=== PATIENT | female | born 1960 | race Caucasian/White ===

== ENCOUNTER 2023-01-21 14:30 | Emergency (ER) | payer MEDICARE, MEDICAID, SELFPAY ==
[2023-01-21] VITALS (34 sets, daily range): BP systolic 136–178; BP diastolic 91–121; PULSE 79–119; RESP 20–36; TEMP 36.4; O2SAT 86–98; BMI 32.3
--- NOTE | 2023-01-21 14:40 | ECG_ITS ---
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
--- NOTE | 2023-01-21 14:48 | PC.NURSE ---
placed by EMS
[2023-01-21 15:02] LABS: Basophils Percent Auto 0.3 % (0.2-2.0); Eosinophils Percent Auto 0.4 % (0.9-7.0); Hematocrit 44.5 % (36.0-48.0); Hemoglobin 15.5 g/dL (12.0-16.0); Immature Granulocytes Abs Auto 0.02 10^3/uL (0.00-0.03); Immature Granulocytes Pct Auto 0.2 % (0.0-0.5); Lymphocytes Absolute Auto 1.3 10^3/uL (1.2-3.8); Lymphocytes Percent Auto 13.9 % (20.5-60.0); Mean Corpuscular HGB Conc 34.8 g/dL (29.9-35.2); Mean Corpuscular Hemoglobin 27.7 pg (26.7-34.0); Mean Corpuscular Volume 79.6 fL (81.0-99.0); Mean Platelet Volume 11.3 fL (9.5-13.5); Monocytes Absolute Auto 0.4 10^3/uL (0.3-0.8); Monocytes Percent Auto 4.8 % (1.7-12.0); Neutrophils Absolute Auto 7.2 10^3/uL (1.4-6.5); Neutrophils Percent Auto 80.4 % (43.0-75.0); Platelet Count 180 10^3/uL (150-450); Red Blood Count 5.59 10^6/uL (4.20-5.40); Red Cell Distribution Width 13.5 % (11.0-15.0)
--- NOTE | 2023-01-21 15:04 | ED_ITS ---
HPI - Nausea/Vomiting/Diarrhea General Chief complaint: Nausea/Vomiting/Diarrhea Stated complaint: nausea Time Seen by Provider: 01/21/23 14:39 Source: patient Mode of arrival: ambulance Limitations: no limitations History of Present Illness HPI Narrative: Presenting with few hours history of nausea vomiting and diarrhea the patient denies any other complaint of abdominal pain, she also denies any history of similar symptoms The patient also denies any history of exposure to anybody with similar symptoms The patient does have a history of coronary artery disease s/p CABG done in August and [facility] by Dr Rosario Related Data Home Medications Medication Instructions Recorded Confirmed aspirin 81 mg tablet,delayed 81 mg PO DAILY 01/21/23 01/21/23 release atorvastatin 40 mg tablet 40 mg PO DAILY 01/21/23 01/21/23 carvedilol 6.25 mg tablet 6.25 mg PO Q12H 01/21/23 01/21/23 citalopram 40 mg tablet 40 mg PO DAILY 01/21/23 01/21/23 furosemide 20 mg tablet 20 mg PO DAILY 01/21/23 01/21/23 hydroxychloroquine 200 mg tablet 200 mg PO BID 01/21/23 01/21/23 hydroxyzine HCl 25 mg tablet 25 mg PO Q6H PRN anxiety 01/21/23 01/21/23 metoprolol tartrate 50 mg tablet 50 mg PO BID 01/21/23 01/21/23 modafinil 200 mg tablet 200 mg PO DAILY 01/21/23 01/21/23 morphine 30 mg tablet,extended 30 mg PO Q12H 01/21/23 01/21/23 release sitagliptin phosphate 100 mg 100 mg PO DAILY 01/21/23 01/21/23 tablet (Januvia) Allergies Allergy/AdvReac Type Severity Reaction Status Date / Time levofloxacin [From Levaquin] Allergy Severe Verified 01/21/23 14:35 Review of Systems ROS Status of ROS 10 or more systems reviewed and unremarkable except as noted in history and below [facility] Medical History (Updated 01/21/23 @ 17:26 by Carolynn Lorenz MD) Surgical History (Updated 01/21/23 @ 15:02 by Ovi Cadena) Exam Narrative Exam Narrative: Nurses notes and vital signs reviewed and patient is not hypoxic. General:actively retching and dry mucus membranes Skin: Warm, dry, no pallor noted. No rash. Head: Normocephalic, atraumatic. Neck: Supple, non-tender. Eye: Pupils are equal, round and EOMI. No scleral icterus. Ears, Nose, Mouth, and Throat: TM are clear, no nasal mucosal hypertrophy. Oral mucosa is moist, no posterior oropharynx erythema, uvula is mid-line Cardiovascular: Regular Rate and Rhythm without murmur, gallop or rub. Respiratory: No accessory muscle use or respiratory distress. Lungs are clear to auscultation, no wheezing, rales or rhonchi Chest Wall: no tenderness Back: No midline thoracic or lumbar vertebral tenderness. No CVA tenderness Musculoskeletal: normal ROM, no calf or popliteal tenderness, no lower extremity edema/swelling GI: Abdomen is soft, non-distended. Normal bowel sounds. No masses appreciated. No tenderness to palpation. No rebound, guarding, or rigidity noted. Neurological: A&O x4. No cranial nerve dysfunction observed. No truncal ataxia. Moves all extremities. Sensation intact. Psychiatric: Cooperative and interactive. Normal mood and affect. Constitutional Vital Signs, click to edit/add: Last Vital Signs Temp 97.5 F L 01/21/23 14:31 Pulse 85 01/21/23 18:00 Resp 26 H 01/21/23 18:00 BP 149/91 H 01/21/23 17:43 Pulse Ox 94 L 01/21/23 18:00 O2 Del Method Nasal Cannula 01/21/23 17:44 O2 Flow Rate 3 01/21/23 17:44 Course Vital Signs Vital signs: Vital Signs Temperature 97.5 F L 01/21/23 14:31 Pulse Rate 89 01/21/23 14:31 Respiratory Rate 24 01/21/23 14:31 Blood Pressure 178/105 H 01/21/23 14:31 Pulse Oximetry 97 01/21/23 14:31 Oxygen Delivery Method Room Air 01/21/23 14:31 Temperature 97.5 F L 01/21/23 14:31 Pulse Rate 85 01/21/23 18:00 Respiratory Rate 26 H 01/21/23 18:00 Blood Pressure 149/91 H 01/21/23 17:43 Pulse Oximetry 94 L 01/21/23 18:00 Oxygen Delivery Method Nasal Cannula 01/21/23 17:44 Oxygen Delivery Flow Rate 3 01/21/23 17:44 MDM - Nausea/Vomiting/Diarrhea MDM Narrative Medical decision making narrative: EKG showing sinus rhythm with a heart rate of [address] elevation or depression The patient was actively retching upon presentation her blood pressure was elevated as well she did not take any of her medication today due to her nausea and vomiting according to the patient her symptoms were only today she also mentions having some chest pressure when she was vomiting The patient provided with 1 dose of nitroglycerin and placed on 2 L NC CBC and chemistry shows mild metabolic acidosis It was noted that the patient troponin was elevated and repeated troponin after 2 hours was doubled The patient was started on heparin drip as well as aspirin she was provided also with metoprolol 1 dose and nitroglycerin 2 doses The patient case discussed with cardio service in [facility] where pt had her CABG , pt case was accepted by Dr Coyle/Mallorie Chest x-ray shows pulmonary edema the patient also was provided with Lasix 20 mg IV once Lab Data Labs: Lab Results 01/21/23 01/21/23 01/21/23 Range/Units 14:47 14:50 16:10 WBC 9.0 (4.0-11.0) 10^3/uL RBC 5.59 H (4.20-5.40) 10^6/uL Hgb 15.5 (12.0-16.0) g/dL Hct 44.5 (36.0-48.0) % MCV 79.6 L (81.0-99.0) fL MCH 27.7 (26.7-34.0) pg MCHC 34.8 (29.9-35.2) g/dL RDW 13.5 (11.0-15.0) % Plt Count 180 (150-450) 10^3/uL MPV 11.3 (9.5-13.5) fL Neut % (Auto) 80.4 H (43.0-75.0) % Lymph % (Auto) 13.9 L (20.5-60.0) % [place] % (Auto) 4.8 (1.7-12.0) % Eos % (Auto) 0.4 L (0.9-7.0) % Baso % (Auto) 0.3 (0.2-2.0) % Neut # (Auto) 7.2 H (1.4-6.5) 10^3/uL Lymph # (Auto) 1.3 (1.2-3.8) 10^3/uL [place] # (Auto) 0.4 (0.3-0.8) 10^3/uL Eos # (Auto) 0.0 (0.0-0.7) 10^3/uL Baso # (Auto) 0.0 (0.0-0.1) 10^3/uL Abs Immat Gran (auto) 0.02 (0.00-0.03) 10^3/uL Imm/Tot Granulo (auto) 0.2 (0.0-0.5) % PT 11.9 H (9.0-11.6) sec INR 1.13 Sodium 138 (136-145) mmol/L Potassium 3.7 (3.5-5.1) mmol/L Chloride 101 (98-107) mmol/L Carbon Dioxide 19.6 L (21.0-32.0) mmol/L Anion Gap 21.1 BUN 20.0 H (7.0-18.0) mg/dL Creatinine 0.77 (0.55-1.02) mg/dL Est GFR ( Amer) >60 (>=60) Est GFR (Non-Af Amer) >60 (>=60) BUN/Creatinine Ratio 26.0 Glucose 260 H (74-106) mg/dL Calcium 9.1 (8.5-10.1) mg/dL Total Bilirubin 0.9 (0.2-1.0) mg/dL AST 30 (15-37) U/L ALT 23 (14-59) U/L Alkaline Phosphatase 100 (46-116) U/L Troponin I High Sens 428.9 H* 828.9 H* (4.0-51.3) pg/mL Total Protein 7.3 (6.4-8.2) g/dL Albumin 4.0 (3.4-5.0) g/dL Globulin 3.3 g/dL Albumin/Globulin Ratio 1.2 Lipase 30.0 L (73.0-393.0) U/L Discharge Plan Discharge Chief Complaint: Nausea/Vomiting/Diarrhea Clinical Impression: Gastroenteritis, Pulmonary edema cardiac cause, Acute non-ST elevation myocardial infarction (NSTEMI) Patient Disposition: [facility] Time of Disposition Decision: 17:25 Discharge Location: [facility] Condition: Fair Mode of Transportation: EMS
[2023-01-21] MEDS: 0.9 % SODIUM CHLORIDE 1,000 ML 1000 ML IV (15:10)
[2023-01-21] MEDS: FAMOTIDINE/PF 20 MG/2 ML VIAL IV (15:11)
[2023-01-21] MEDS: PROCHLORPERAZINE 10 MG/2 ML VIAL IV (15:11)
--- NOTE | 2023-01-21 15:17 | PC.NURSE ---
no vomiting while in ER at this time.
[2023-01-21 15:19] LABS: Alanine Aminotransferase 23 U/L (14-59); Albumin Globulin Ratio 1.2; Alkaline Phosphatase 100 U/L (46-116); Anion Gap 21.1; Aspartate Amino Transferase 30 U/L (15-37); Bilirubin Total 0.9 mg/dL (0.2-1.0); Calcium 9.1 mg/dL (8.5-10.1); Carbon Dioxide 19.6 mmol/L (21.0-32.0); Chloride 101 mmol/L (98-107); Estimated GFR (African America >60 (>=60); Estimated GFR (Non-African Ame >60 (>=60); Globulin 3.3 g/dL; Glucose 260 mg/dL (74-106); Potassium 3.7 mmol/L (3.5-5.1); Sodium 138 mmol/L (136-145); Total Protein 7.3 g/dL (6.4-8.2)
[2023-01-21 15:31] LABS: Troponin I High Sensitivity 428.9 pg/mL (4.0-51.3)
--- NOTE | 2023-01-21 15:52 | NUTR.NU ---
pt reports nausea better at this time
--- NOTE | 2023-01-21 16:00 | XR_ITS ---
The [address] [address] Patient Name: ALEX ABDI MRN: [id number] date: 1960 Sex: F Assigned Patient Location: ER Current Patient Location: ED.MAIN Accession/Order Number: [id number] Exam Date: 01/21/2023 16:20 Report Date: 01/21/2023 16:56 At the request of: CHELI MATT Procedure: XR chest 1V EXAM: XR chest 1V HISTORY: sob COMPARISON: 09/28/2022 TECHNIQUE: Chest X-ray AP, 1 view FINDINGS: Support devices: Median sternotomy wires are in place. Lungs/pleura: No pneumothorax. Increased bilateral interstitial marking, may represent pulmonary edema. No definite consolidation. Heart and mediastinum: Normal contours. Bones: No acute abnormality identified. XR/XR chest 1V Impression: Increased bilateral interstitial marking, may represent pulmonary edema. No definite consolidation. Electronically authenticated by: ARIN LEDEZMA Date: 01/21/2023 16:56
[2023-01-21] MEDS: NITROGLYCERIN 0.4 MG TAB.SUBL PO (16:26)
[2023-01-21 16:27] LABS: INR 1.13; Prothrombin Time 11.9 sec (9.0-11.6)
--- NOTE | 2023-01-21 16:38 | ECG_ITS ---
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
[2023-01-21 16:40] LABS: Troponin I High Sensitivity 828.9 pg/mL (4.0-51.3)
[2023-01-21] MEDS: ASPIRIN 325 MG TABLET PO (17:12)
[2023-01-21] MEDS: METOPROLOL TARTRATE 5 MG/5 ML VIAL IVP (17:12)
[2023-01-21] MEDS: FUROSEMIDE 20 MG/2 ML VIAL IVP (17:12)
[2023-01-21] MEDS: HEPARIN SODIUM (PORCINE) 5,000 UNIT/ML VIAL 4000 UNIT IV (17:13)
[2023-01-21] MEDS: HEPARIN SODIUM,PORCINE/D5W 25,000 UNIT/500 ML IV.SOLN 17.256 UNIT IV (17:29)
== END 2023-01-21 19:53 | disposition short-term general hospital (02) ==
PROVIDERS: Emergency Provider Emergency Medicine; PCP Internal Medicine
DX: I21.4 Non-ST elevation (NSTEMI) myocardial infarction (principal); K52.9 Noninfective gastroenteritis and colitis, unspecified; J81.1 Chronic pulmonary edema; E87.20 Acidosis, unspecified; Z95.1 Presence of aortocoronary bypass graft; Z79.82 Long term (current) use of aspirin; Z79.899 Other long term (current) drug therapy
CPT/HCPCS: 36415; 71045; 80053; 83690; 84484; 85025; 85610; 93005; 96361; 96374; 96375; 99285

== ENCOUNTER 2023-02-05 17:08 | Outpatient (OUT) | payer MEDICARE, MEDICAID, SELFPAY ==
[2023-02-05 17:34] LABS: Anion Gap 9.6; BUN Creatinine Ratio 37.7; Calcium 8.7 mg/dL (8.5-10.1); Carbon Dioxide 30.6 mmol/L (21.0-32.0); Chloride 105 mmol/L (98-107); Estimated GFR (African America >60 (>=60); Estimated GFR (Non-African Ame >60 (>=60); Glucose 110 mg/dL (74-106); Potassium 4.2 mmol/L (3.5-5.1); Sodium 141 mmol/L (136-145)
== END 2023-02-05 17:09 | disposition home or self-care (01) ==
PROVIDERS: PCP Internal Medicine
DX: I21.4 Non-ST elevation (NSTEMI) myocardial infarction (principal)
CPT/HCPCS: 36415; 80048

== ENCOUNTER 2023-02-20 08:11 | Outpatient (OUT) | payer MEDICARE, MEDICAID, SELFPAY ==
[2023-02-20 08:46] LABS: Basophils Percent Auto 0.4 % (0.2-2.0); Eosinophils Absolute Auto 0.2 10^3/uL (0.0-0.7); Eosinophils Percent Auto 3.9 % (0.9-7.0); Hematocrit 36.6 % (36.0-48.0); Hemoglobin 12.4 g/dL (12.0-16.0); Immature Granulocytes Abs Auto 0.01 10^3/uL (0.00-0.03); Immature Granulocytes Pct Auto 0.2 % (0.0-0.5); Lymphocytes Absolute Auto 0.8 10^3/uL (1.2-3.8); Lymphocytes Percent Auto 17.1 % (20.5-60.0); Mean Corpuscular HGB Conc 33.9 g/dL (29.9-35.2); Mean Corpuscular Hemoglobin 28.2 pg (26.7-34.0); Mean Corpuscular Volume 83.4 fL (81.0-99.0); Monocytes Absolute Auto 0.5 10^3/uL (0.3-0.8); Monocytes Percent Auto 10.7 % (1.7-12.0); Neutrophils Absolute Auto 3.1 10^3/uL (1.4-6.5); Neutrophils Percent Auto 67.7 % (43.0-75.0); Red Blood Count 4.39 10^6/uL (4.20-5.40); Red Cell Distribution Width 14.2 % (11.0-15.0); White Blood Count 4.6 10^3/uL (4.0-11.0)
[2023-02-20 08:59] LABS: Platelet Count 122 10^3/uL (150-450)
[2023-02-20 09:00] LABS: Erythrocyte Sedimentation Rate 11 mm/hr (<=30)
[2023-02-20 09:35] LABS: Alanine Aminotransferase 24 U/L (14-59); Albumin Globulin Ratio 1.2; Albumin Level 3.5 g/dL (3.4-5.0); Alkaline Phosphatase 80 U/L (46-116); Aspartate Amino Transferase 20 U/L (15-37); Bilirubin Direct 0.1 mg/dL (0.0-0.2); Bilirubin Total 0.4 mg/dL (0.2-1.0); Estimated GFR (African America >60 (>=60); Estimated GFR (Non-African Ame >60 (>=60); Globulin 2.9 g/dL; Total Protein 6.4 g/dL (6.4-8.2)
== END 2023-02-20 08:12 | disposition home or self-care (01) ==
LOC: LAB 08:12
PROVIDERS: PCP Internal Medicine; Visit Provider Internal Medicine Rheumatology
DX: M05.79 Rheumatoid arthritis with rheumatoid factor of multiple sites without organ or systems involvement (principal); Z79.899 Other long term (current) drug therapy
CPT/HCPCS: 36415; 80076; 82565; 85025; 85652

== ENCOUNTER 2023-03-30 10:58 | Outpatient (OUT) | payer MEDICARE, SELFPAY ==
--- NOTE | 2023-03-30 11:06 | MM_ITS ---
Patient: ALEX ABDI Exam Date: 03/30/2023 : 1960 Gender:F Ordering : DR CARYL MAK M.D. Admission #: [id number] Family : Order #: [id number] CLICK HERE TO VIEW EXAM RADIOLOGY REPORT PROCEDURE: MM TOMOSYNTHESIS SCREENING BI COMPARISON: MG MAMM SCREEN 3D DONN CAD, 10/18/2021. MG MAMM SCREEN 3D DONN CAD, 09/30/2020. MG MAMM SCREEN DONN W CAD, 05/06/2019. MG MAMM DONN SCRN W CAD DIG, 04/16/2013. INDICATIONS: Screening Calculator Name NCI Breast Cancer Risk Assessment Tool 5 Year Breast Cancer Risk 1.90% Lifetime Breast Cancer Risk 7.50% Personal Breast Cancer No Personal Ovarian Cancer No Treatments None Family Cancers Grandmother-maternal with liver cancer at age 48; Grandfather-maternal with leg,lung,esopagus, tongue cancer at age ~38; Grandfather-paternal with lung cancer at age ~60; Aunt-paternal with breast cancer at age 52. LOCATION: [facility] BREAST COMPOSITION: Scattered areas fibroglandular density. FINDINGS: DIAGNOSTIC CATEGORY 2--BENIGN FINDING: RIGHT BREAST: No significant suspicious finding. Scattered benign-appearing calcifications are present. No significant change has occurred. LEFT BREAST: No significant suspicious finding. Scattered benign-appearing calcifications are present. No significant change has occurred. RECOMMENDATIONS: ROUTINE MAMMOGRAM AND CLINICAL EVALUATION IN 12 MONTHS. PLEASE NOTE: A NORMAL MAMMOGRAM DOES NOT EXCLUDE THE POSSIBILITY OF BREAST CANCER. A CLINICALLY SUSPICIOUS PALPABLE LUMP SHOULD BE BIOPSIED. Dictated by: Jamaal Deshpande M.D. on 03/30/2023 at 13:10 Approved by: Jamaal Deshpande M.D. on 03/30/2023 at 13:14
== END 2023-03-30 10:59 | disposition home or self-care (01) ==
LOC: MAMMO 11:00
PROVIDERS: PCP Internal Medicine; Visit Provider Internal Medicine
DX: Z12.31 Encounter for screening mammogram for malignant neoplasm of breast (principal); Z80.3 Family history of malignant neoplasm of breast; Z80.1 Family history of malignant neoplasm of trachea, bronchus and lung; Z80.0 Family history of malignant neoplasm of digestive organs; Z80.8 Family history of malignant neoplasm of other organs or systems
CPT/HCPCS: 77063; 77067

== ENCOUNTER 2023-10-02 12:41 | Outpatient (OUT) | payer MEDICARE, SELFPAY ==
[2023-10-02 13:11] LABS: Basophils Percent Auto 0.3 % (0.2-2.0); Eosinophils Absolute Auto 0.2 10^3/uL (0.0-0.7); Eosinophils Percent Auto 2.5 % (0.9-7.0); Hematocrit 40.3 % (36.0-48.0); Hemoglobin 13.5 g/dL (12.0-16.0); Immature Granulocytes Abs Auto 0.03 10^3/uL (0.00-0.03); Immature Granulocytes Pct Auto 0.4 % (0.0-0.5); Lymphocytes Absolute Auto 1.5 10^3/uL (1.2-3.8); Lymphocytes Percent Auto 21.3 % (20.5-60.0); Mean Corpuscular HGB Conc 33.5 g/dL (29.9-35.2); Mean Corpuscular Hemoglobin 29.5 pg (26.7-34.0); Mean Corpuscular Volume 88.2 fL (81.0-99.0); Mean Platelet Volume 11.1 fL (9.5-13.5); Monocytes Absolute Auto 0.4 10^3/uL (0.3-0.8); Monocytes Percent Auto 5.1 % (1.7-12.0); Neutrophils Absolute Auto 4.8 10^3/uL (1.4-6.5); Neutrophils Percent Auto 70.4 % (43.0-75.0); Platelet Count 206 10^3/uL (150-450); Red Blood Count 4.57 10^6/uL (4.20-5.40); Red Cell Distribution Width 12.6 % (11.0-15.0); White Blood Count 6.9 10^3/uL (4.0-11.0)
[2023-10-02 13:24] LABS: Erythrocyte Sedimentation Rate 23 mm/hr (<=30)
[2023-10-02 13:44] LABS: Alanine Aminotransferase 25 U/L (14-59); Albumin Level 3.5 g/dL (3.4-5.0); Alkaline Phosphatase 92 U/L (46-116); Aspartate Amino Transferase 13 U/L (15-37); Bilirubin Direct 0.2 mg/dL (0.0-0.2); Bilirubin Total 0.8 mg/dL (0.2-1.0); Estimated GFR (African America >60 (>=60); Estimated GFR (Non-African Ame >60 (>=60); Globulin 3.4 g/dL; Total Protein 6.9 g/dL (6.4-8.2)
== END 2023-10-02 12:42 | disposition home or self-care (01) ==
LOC: LAB 12:42
PROVIDERS: PCP Internal Medicine; Visit Provider Internal Medicine Rheumatology
DX: M05.79 Rheumatoid arthritis with rheumatoid factor of multiple sites without organ or systems involvement (principal); Z79.899 Other long term (current) drug therapy
CPT/HCPCS: 36415; 80076; 82565; 85025; 85652

== ENCOUNTER 2024-02-12 12:32 | Outpatient (OUT) | payer MEDICARE, SELFPAY ==
[2024-02-12 12:58] LABS: Erythrocyte Sedimentation Rate 37 mm/hr (<=30)
[2024-02-12 13:00] LABS: Basophils Percent Auto 0.9 % (0.2-2.0); Eosinophils Absolute Auto 0.2 10^3/uL (0.0-0.7); Eosinophils Percent Auto 3.5 % (0.9-7.0); Hematocrit 39.1 % (36.0-48.0); Hemoglobin 13.4 g/dL (12.0-16.0); Immature Granulocytes Pct Auto 2.2 % (0.0-0.5); Lymphocytes Percent Auto 22.1 % (20.5-60.0); Mean Corpuscular HGB Conc 34.3 g/dL (29.9-35.2); Mean Corpuscular Hemoglobin 29.5 pg (26.7-34.0); Mean Corpuscular Volume 86.1 fL (81.0-99.0); Mean Platelet Volume 11.2 fL (9.5-13.5); Monocytes Absolute Auto 0.5 10^3/uL (0.3-0.8); Monocytes Percent Auto 11.4 % (1.7-12.0); Neutrophils Absolute Auto 2.8 10^3/uL (1.4-6.5); Neutrophils Percent Auto 59.9 % (43.0-75.0); Platelet Count 145 10^3/uL (150-450); Red Blood Count 4.54 10^6/uL (4.20-5.40); Red Cell Distribution Width 12.6 % (11.0-15.0); White Blood Count 4.6 10^3/uL (4.0-11.0)
[2024-02-12 13:56] LABS: Alanine Aminotransferase 22 U/L (14-59); Albumin Level 3.2 g/dL (3.4-5.0); Alkaline Phosphatase 99 U/L (46-116); Aspartate Amino Transferase 15 U/L (15-37); Bilirubin Direct 0.1 mg/dL (0.0-0.2); Bilirubin Total 0.4 mg/dL (0.2-1.0); Estimated GFR (African America >60 (>=60); Estimated GFR (Non-African Ame >60 (>=60); Globulin 3.2 g/dL; Total Protein 6.4 g/dL (6.4-8.2)
== END 2024-02-12 12:33 | disposition home or self-care (01) ==
LOC: LAB 12:34
PROVIDERS: PCP Internal Medicine; Visit Provider Internal Medicine Rheumatology
DX: M05.79 Rheumatoid arthritis with rheumatoid factor of multiple sites without organ or systems involvement (principal); Z79.899 Other long term (current) drug therapy
CPT/HCPCS: 36415; 80076; 82565; 85025; 85652

== ENCOUNTER 2024-08-01 12:23 | Outpatient (OUT) | payer MEDICARE, SELFPAY ==
[2024-08-01 12:39] LABS: Basophils Percent Auto 0.7 % (0.2-2.0); Eosinophils Absolute Auto 0.2 10^3/uL (0.0-0.7); Eosinophils Percent Auto 2.4 % (0.9-7.0); Hematocrit 44.8 % (36.0-48.0); Immature Granulocytes Abs Auto 0.02 10^3/uL (0.00-0.03); Immature Granulocytes Pct Auto 0.3 % (0.0-0.5); Lymphocytes Absolute Auto 0.8 10^3/uL (1.2-3.8); Lymphocytes Percent Auto 13.7 % (20.5-60.0); Mean Corpuscular HGB Conc 33.5 g/dL (29.9-35.2); Mean Corpuscular Hemoglobin 29.1 pg (26.7-34.0); Mean Platelet Volume 10.9 fL (9.5-13.5); Monocytes Absolute Auto 0.5 10^3/uL (0.3-0.8); Monocytes Percent Auto 7.8 % (1.7-12.0); Neutrophils Absolute Auto 4.6 10^3/uL (1.4-6.5); Neutrophils Percent Auto 75.1 % (43.0-75.0); Platelet Count 148 10^3/uL (150-450); Red Blood Count 5.15 10^6/uL (4.20-5.40); Red Cell Distribution Width 13.3 % (11.0-15.0); White Blood Count 6.1 10^3/uL (4.0-11.0)
[2024-08-01 12:42] LABS: Erythrocyte Sedimentation Rate 11 mm/hr (<=30)
--- OUTSIDE RECORDS SUMMARY | 2024-08-01 12:54 | XMS_ITS | CCD ---
Author Organization [facility] Inform ion Partnership [facility] Care Team Providers Care Leaf Sorter Name Role Phone LORNA, BERI M Unavailable Unavailable LORNA, BERI M Unavailable Unavailable KELLY DAVIDSON (ELECTRONIC ORGAN TECHNICIAN) Unavailable Unavailab le LORNA, BERI M Unavailable Unavailable LORNA, BERI M Unavailable Unavailable LORNA, BERI M Unavailable Unavailable LORNA, BERI M Unavailable Unavailable LORNA, BERI M Unavailable Unavailable AUGUSTUS LOVE (ELECTRONIC ORGAN TECHNICIAN) Unavailable Unavaila ble LORNA, BERI M Unavailable Unavailable UNKNOWN, PROVIDER Attending Unavailable LUDWIN WEN Primary Care Unavailable UNKNOWN, PROVIDER Attending Unavailable LUDWIN WEN Primary Care Unavailable Unknown, Referring Provider Unavailable Unav ailable Gaetano Torres Unavailable Unavailable Juan F Savage Unavailable Unavailable Unknown, Referring Provider Unavailable Unav ailable Unavailable Unavailable MD Juan F Savage Attending Provider MIGUEL Wen Primary Care Provider Gaetano Torres Unavailable DALIA CERVANTES Admitting Unavailable DALIA CERVANTES Attending Unavailable BEHZAD, DR MASCORRO Primary Care Unavailable BEHZAD, DR MASCORRO Primary Care Unavailable LOIDA, DR TAMIKO Hill Admitting Unavailable LOIDA, DR TAMIKO Hill Consulting Unavailable LOIDA, DR TAMIKO Hill Attending Unavailable SIM, DR DIAZ Dobbins Consulting Unavailable BEHZAD, DR MASCORRO Consulting Unavailable BEHZAD, DR MASCORRO Attending Unavailable BEHZAD, DR MASCORRO Admitting Unavailable BEHZAD, DR MASCORRO Primary Care Unavailable BEHZAD, DR MASCORRO Attending Unavailable BEHZAD, DR MASCORRO Admitting Unavailable BEHZAD, DR MASCORRO Primary Care Unavailable BEHZAD, DR MASCORRO Consulting Unavailable BEHZAD, DR MASCORRO Primary Care Unavailable BRIAN, DR COLLINS Attending Unavailable BRIAN, DR COLLINS Admitting Unavailable HALADAMaia, DR COLLINS Consulting Unavailable BEHZAD, DR MASCORRO Primary Care Unavailable LOIDA, DR TAMIKO Hill Attending Unavailable WEST, DR TAMIKO Hill Admitting Unavailable WEST, DR TAMIKO Hill Consulting Unavailable HIGHLANDER, DALIA Rachel Admitting Unavailable HIGHLANDER, DALIA Rachel Attending Unavailable WEN, DR MASCORRO Primary Care Unavailable HIGHLANDER, DALIA Rachel Admitting Unavailable HIGHLANDER, DALIA Rachel Attending Unavailable WEN, DR MASCORRO Primary Care Unavailable HIGHLANDER, DALIA Rachel Admitting Unavailable HIGHLANDER, DALIA Rachel Attending Unavailable WEN, DR MASCORRO Primary Care Unavailable HIGHLANDER, DALIA Rachel Admitting Unavailable HIGHLANDER, DALIA Rachel Attending Unavailable WEN, DR MASCORRO Primary Care Unavailable HIGHLANDER, DALIA Rachel Attending Unavailable HIGHLANDER, DALIA Rachel Admitting Unavailable WEN, DR MASCORRO Primary Care Unavailable HIGHLANDER, DALIA Rachel Attending Unavailable HIGHLANDER, DALIA D Admitting Unavailable WEN, DR MASCORRO Primary Care Unavailable WEN, DR MASCORRO Primary Care Unavailable MARKER ., DR LEIGH Attending Unavailable MARKER ., DR LEIGH Admitting Unavailable MARKER ., DR LEIGH Consulting Unavailable PRITESH, CHEVY Consulting Unavailable BROWN, TAMIKO Consulting Unavailable HIGHLANDER, PETER D Procedure Practitioner Unava ilable DINESH, DR SAM Carlos Attending Unavailable NADEREMu, DR SAM Carlos Admitting Unavailable WEN, DR MASCORRO Primary Care Unavailable REINECK, DR FISH Naqvi Consulting Unavailabl e WEST, DR TAMIKO Hill Consulting Unavailable NADERER, DR SAM Carlos Consulting Unavailable HIGHLANDER, DALIA Rachel Consulting Unavailable AGUBOSIM, LIN Consulting Unavailable DORKOSKIEERIN Consulting Unavailable CITLALLI, RENATO Consulting Unavailable WEN, DR MASCORRO Referring Unavailable WEN, DR MASCORRO Primary Care Unavailable HALADAY, DR COLLINS Attending Unavailable HALADAY, DR COLLINS Consulting Unavailable HALADAY, DR COLLINS Admitting Unavailable HIGHLANDER, DALIA Rachel Admitting Unavailable HIGHLANDER, DALIA Rachel Attending Unavailable EWN, DR MASCORRO Primary Care Unavailable RITESH MORENO Attending Unavailable JOSH, RITESH Admitting Unavailable WEN, DR MASCORRO Primary Care Unavailable SIM, DR DIAZ Dobbins Consulting Unavailable DAVID ., RIZWANA OJEDA Consulting Unavailsusana e RITESH MORENO Consulting Unavailable JUANA ROGERS Attending Unavailable MORGAN ., JUANA MEIER Admitting Unavailable WEN, DR MASCORRO Primary Care Unavailable WEST, DR TAMIKO Hill Consulting Unavailable JUANA ROGERS Consulting Unavailable Behzad, MIGUEL Mascorro Primary Care Provider MD Gaetano Torres Attending Provider Behzad, MIGUEL Mascorro Primary Care Provider MD Gaetano Torres Attending Provider [phone] Brian, Dr. Gaetano Peres Primary Care Unava ilable Juan F Savage Referring Unavailable Juan F Savage Attending Unavailable UNKNOWN, PCP Primary Care Unavailable Juan F Savage Attending Unavailable JUAN F SAVAGE Attending Unavailable UNKNOWN, PCP Primary Care Unavailable Brian, Dr. Gaetano Peres Referring Unava ilable Brian, Dr. Gaetano Peres Primary Care Unava ilable JUAN F SAVAGE Attending Unavailable Brian, Dr. Gaetano Peres Referring Unava ilable Ludwin Wen MD Primary Care Provider [phone] Ludwin Wen MD Unavailable [phone] Scotty Huggins Attending Unavailable LUDWIN WEN Primary Care Physician LUDWIN WEN Referring Unavailable LUDWIN WEN B Primary Care Unavailable BEHZAD LUDWIN B Referring Unavailable BEHZAD LUDWIN B Primary Care Unavailable BEHZAD LUDWIN B Referring Unavailable BEHZAD LUDWIN B Primary Care Unavailable LUDWIN WEN B Referring Unavailable BEHZAD LUDWIN B Primary Care Unavailable Ludwin Wen MD Primary Care Provider BENNIE MERRITT Admitting Unavailable BENNIE MERRITT Attending Unavailable JORDY CLEMENTE Referring Unavailable BEHZAD LUDWIN B Primary Care Unavailable [facility] ONLY, [facility] Consulting Unavailable ([facility] ONLY), NEURO-CONSULTING Consulting [place] vailable CARDIOLOGY, [facility] Consulting Unavailable MICHAEL CALDWELL Consulting Unavailable FISH CORTES Consulting Unavailable BASHAR, MASHARIB Referring Unavailable BEHZAD LUDWIN B Primary Care Unavailable FUAD TIPTON Attending Unavailable BEHZAD LUDWIN B Primary Care Unavailable ALASTAL, YASEEN S Attending Unavailable ALASTAL, YASEEN S Referring Unavailable BEHZAD, LUDWIN B Primary Care Unavailable ALASTAL, YASEEN S Attending Unavailable ALASTAL, YASEEN S Referring Unavailable BEHZAD, LUDWIN B Primary Care Unavailable SELENE SHORT Referring Unavai lable BEHZAD, LUDWIN B Primary Care Unavailable SELENE SHORT Referring Unavai lable BEHZAD, LUDWIN B Primary Care Unavailable LUIGI SAHU Referring Unavailable BEHZAD, LUDWIN B Primary Care Unavailable MELI ROMO Attending Unavailable LUIGI SAHU Referring Unavailable LUDWIN WEN B Primary Care Unavailable AHJENNY BAHENAB Referring Unavailable BEHZAD LUDWIN B Primary Care Unavailable CHANA, BASEL Attending Unavailable BEHZAD LUDWIN B Referring Unavailable WEN, LUDWIN B Primary Care Unavailable MIGUEL Wen Ludwin Primary Care Provider MD Howard Kolb Attending Provider Ludwin Wen Primary Care Unavailable Howard Kolb Admitting Unavailable Howard Kolb Attending Unavailable Behzad Ludwin Primary Care Unavailable HaladayGaetano Admitting Unavailable Haladay, Gaetano Attending Unavailable Ludwin Wen Primary Care Unavailable HaladaGaetano urbina Admitting Unavailable Haladay, Gaetano Attending Unavailable RAMONA ROLDAN Attending Unavailable BEHZAD LUDWIN B Referring Unavailable WEN, LUDWIN B Primary Care Unavailable DANNIE SANFORD Attending Unavailable TIMMY BANDA Referring Unavailable BEHZAD LUDWIN B Primary Care Unavailable DANNIE SANFORD Attending Unavailable BEHZAD LUDWIN B Referring Unavailable BEHZAD LUDWIN B Primary Care Unavailable Ludwin Wen MD Unavailable HOWARD KOLB Attending Unavailable HOWARD KOLB Attending Unavailable LUDWIN WEN B Attending Unavailable LUDWIN WEN B Attending Unavailable MARIA METCALF Attending Unavailable LUDWIN WEN Attending Unavailable ISA DA SILVA Attending Unavailable MARIA METCALF Attending Unavailable Allergies Allergy Classification Reported Allergen(s) Allergy Type Date of Onset Reaction(s) Facility (20 sources) levoFLOXacin; Translations: [LEVOFLOXACIN] Drug Allergy 4 Unknown, Rash, Urticaria (disorder) [facility] Repository (9 sources) levoFLOXacin; Translations: [Levaquin] Drug Allergy [address] [facility] Repository (2 sources) Etanercept; Translations: [Enbrel] Drug Allergy [facility] Repository (19 sources) adalimumab; Translations: [ADALIMUMAB] Drug Allergy 3 [facility] [employer] Standards Work Phone: (20 sources) buPROPion; Translations: [BUPROPION] Drug Allergy 1 [facility] (19 sources) Etanercept; Translations: [ETANERCEPT] Drug Allergy 3 [facility] (3 sources) Etanercept; Translations: [etanercept] Drug Allergy 3 Cerebrovascular accident (disorder) [facility] (5 sources) buPROPion; Translations: [BUPROPION HCL] Drug Allergy 1 [facility] Repository (2 sources) adalimumab Drug Allergy 3 [facility] [employer] [facility] (14 sources) Citalopram; Translations: [CITALOPRAM] Drug Allergy 4 Other [facility] Repository (13 sources) Hydroxychloroqu ine; Translations: [HYDROXYCHLOROQ UINE] Drug Allergy 4 Other [facility] Repository (14 sources) Meclizine; Translations: [MECLIZINE] Drug Allergy 4 Other [facility] Repository (2 sources) Metoprolol; Translations: [METOPROLOL TARTRATE] Drug Allergy 4 [facility] Repository (2 sources) Ondansetron; Translations: [ONDANSETRON HCL] Drug Allergy 4 [facility] Repository (12 sources) Metoprolol Drug Allergy 4 Other [facility] (12 sources) Ondansetron Drug Allergy 4 Other [facility] Medications Current Medications Medication Drug Class(es) Dates Sig (Normalized) Sig (Original) aspirin 81 mg delayed release oral tablet (17 sources) Platelet Aggregation Inhibitor, Nonsteroidal Anti-inflammatory Drug Start: 10-09-2022 take 1 tablet by mouth in the morning aspirin 81 MG EC tablet Take 81 mg by mouth in the morning. 10/09/2022 Active atorvastatin 40 mg oral tablet (17 sources) HMG-CoA Reductase Inhibitor Start: 10-09-2022 take 1 tablet by mouth at bedtime atorvastatin (Lipitor) 40 MG tablet Take 40 mg by mouth at bedtime. 10/09/2022 Active brexpiprazole 2 mg oral tablet (3 sources) Atypical Antipsychotic Start: 05-21-2023 take 1 tablet by mouth in the morning Brexpiprazole (Rexulti) 2 MG tablet Indications: Moderate major depression, single episode (HCC) (CMS/HCC) Take 2 mg by mouth in the morning. 30 tablet 11 05/21/2023 Active carvedilol 6.25 mg oral tablet (15 sources) alpha-Adrenergic Hudson, beta-Adrenergic Hudson Start: 11-28-2023 take 1 tablet by mouth twice daily at mealtime carvedilol (Coreg) 6.25 MG tablet Indications: Essential hypertension (CMS/HCC) TAKE 1 TABLET WITH FOOD ORALLY TWICE A DAY 100 DAYS 200 tablet 3 11/28/2023 Active take 1 tablet by mouth in the mo rning carvedilol (Coreg) 6.25 MG tablet Take 6.25 mg by mouth in the morning and 6.25 mg in the evening. Take with meals. 0 Active cefdinir 300 mg oral capsule (2 sources) Cephalosporin Antibacterial Start: 08-15-2023 End: 08-22-2023 take 1 capsule by mouth in the morning cefdinir (Omnicef) 300 MG capsule Indications: Acute non-recurrent sinusitis, unspecified location Take 1 capsule (300 mg) by mouth in the morning and 1 capsule (300 mg) before bedtime. Do all this for 7 days. 14 capsule 0 08/15/2023 08/22/2023 Active cholecalciferol 0.025 mg oral capsule (20 sources) Vitamin D Start: 01-02-2024 End: 05-13-2024 take 1 capsule by mouth once daily cholecalciferol (Vitamin D-3) 25 MCG (1000 UT) capsule Indications: Vitamin D deficiency Take 1 capsule (25 mcg) by mouth Daily 100 capsule 3 05/13/2024 Active Start: 08-27-2017 take 1 capsule by [facility] every other week D3-50 1.25 MG (25136 UT) Oral Capsule TAKE 1 CAPSULE EVERY 2 WEEKS Quantity: 6 Refills: 0 Ordered: 19-Nov-2017 DO Start : 27-Aug-2017 Active diclofenac sodium 0.01 mg/mg topical gel (2 sources) Nonsteroidal Anti-inflammatory Drug diclofenac sodium (VOLTAREN) 1 % gel Apply 4 g topically 4 (four) times a day. To affected joints 0 Active docusate sodium 100 mg oral capsule (20 sources) Start: 07-10-19 take 1 capsule by mouth in the morning [facility] Stool Softener 100 MG capsule Indications: Drug-induced constipation TAKE 1 CAPSULE (100 MG) BY MOUTH IN THE MORNING 100 capsule 3 07/10/2024 Active Start: 01-01-2024 take 1 capsule by [facility] once daily docusate sodium ([facility] Stool Softener) 100 MG capsule Indications: Drug-induced constipation Take 1 capsule (100 mg) by mouth Daily 100 capsule 3 01/01/2024 Active Start: 07-31-2023 take 1 capsule by mo uth in the morning docusate sodium ([facility] Stool Softener) 100 MG capsule Indications: Drug-induced constipation Take 1 capsule (100 mg) by mouth in the morning. 100 capsule 3 07/31/2023 Active Start: 11-13-2016 take 1 capsule by mo uth at bedtime as needed [facility] Stool Softener 100 MG Oral Capsule TAKE 1 CAPSULE BY MOUTH AT BEDTIME NEEDED Quantity: 30 Refills: 0 Ordered: 09-Nov-2017 DO Start : 13-Nov-2016 Active take 2 capsules by m outh once daily docusate sodium (COLACE) 50 mg capsule Take 2 capsules (100 mg total) by mouth once daily. 0 Active docusate sodium 50 mg / sennosides, senior care 8.6 mg oral tablet (15 sources) Start: 10-09-2022 take 8.6-50 mg by mouth twice daily as needed senna-docusate (Lidia-Colace) 8.6-50 MG tablet Take 1 tablet by mouth 2 (two) times a day as needed for constipation. 10/09/2022 Active ergocalciferol 1.25 mg oral capsule (3 sources) Provitamin D2 Compound Start: 09-11-2011 ergocalciferol (Vitamin D-2) 1.25 MG (30520 UT) capsule Take by mouth 1 (one) time per week. 0 09/11/2011 Active 72 hr fentaNYL 0.012 mg/hr transdermal system (4 sources) Opioid Agonist Start: 06-27-2024 End: 08-28-2024 fentaNYL (DURAGESIC) 12 MCG/HR Indications: Rheumatoid arthritis involving multiple sites with positive rheumatoid factor (CMS/HCC) Place 1 patch over 72 hours on the skin every 3rd (third) day 10 patch 07/29/2024 08/28/2024 Active fluconazole 100 mg oral tablet (8 sources) Azole Antifungal Start: 08-15-2023 End: 08-25-2023 take 1 tablet by mouth in the morning fluconazole (Diflucan) 100 MG tablet Indications: Tinea corporis Take 1 tablet (100 mg) by mouth in the morning for 10 days. 10 tablet 0 08/15/2023 08/25/2023 Active Start: 11-07-2017 Fluconazole 10 0 MG Oral Tablet Quantity: 10 Refills: 0 Ordered: 07-Nov-2017 DO Start : 07-Nov-2017 Active Start: 11-07-2017 Fluconazole 10 0 MG Oral Tablet Quantity: 10 Refills: 0 DO Start : 07-Nov-2017 Active FLUoxetine 40 mg oral capsule (15 sources) Serotonin Reuptake Inhibitor Start: 05-28-2023 End: 11-24-2023 take 1 capsule by mouth in the morning FLUoxetine (PROzac) 40 MG capsule Indications: Moderate major depression, single episode (HCC) (CMS/HCC) TAKE 1 CAPSULE BY MOUTH IN THE MORNING 100 capsule 3 09/27/2023 Active fluticasone propionate 0.05 mg/actuat metered dose nasal spray (17 sources) Corticosteroid take 2 spray(s) nasal route in the morning fluticasone (Flonase) 50 MCG/ACT nasal spray Administer 2 sprays into each nostril in the morning. Active take 2 spray(s) nasal route once daily fluticasone propionate (FLONASE ALLERGY RELIEF) 50 mcg/actuation nasal spray Administer 2 sprays into each nostril once daily. 0 Active furosemide 20 mg oral tablet (20 sources) Loop Diuretic Start: 04-25-2017 End: 05-13-2025 take 1 tablet by mouth once daily furosemide (Lasix) 20 MG tablet Indications: Heart failure with reduced ejection fraction (CMS/HCC) Take 1 tablet (20 mg) by mouth Daily 90 tablet 3 05/13/2024 05/13/2025 Active Start: 04-25-2017 Furosemide 20 MG Oral Tablet Quantity: 90 Refills: 0 Ordered: 11-Oct-2017 DO Start : 25-Apr-2017 Active hydrocortisone 10 mg/ml / neomycin 3.5 mg/ml / polymyxin b [id number] unt/ml otic suspension (2 sources) Aminoglycoside Antibacterial, Polymyxin-class Antibacterial, Corticosteroid Start: 08-15-2023 End: 08-25-2023 [id number] isone (Cortisporin) 3.5-15457-9 otic suspension Indications: Acute otitis media, unspecified otitis media type Administer 3-4 drops into affected ear(s) in the morning and 3-4 drops at noon and 3-4 drops in the evening and 3-4 drops before bedtime. Do all this for 10 days. 10 mL 0 08/15/2023 08/25/2023 Active lactulose 667 mg/ml oral solution (7 sources) Osmotic Laxative Start: 04-30-2024 lactulose (Chronulac) 10 GM/ 15ML solution Take 10 g by mouth in the morning and 10 g at noon and 10 g in the evening. 04/30/2024 Active leflunomide 20 mg oral tablet (17 sources) Antirheumatic Agent take 1 tablet by mouth in the morning leflunomide (Arava) 20 MG tablet Take 20 mg by mouth in the morning. Active lisinopril 20 mg oral tablet (14 sources) Angiotensin Converting Enzyme Inhibitor Start: 09-14-2023 take 1 tablet by mouth in the morning lisinopriL (PRINIVIL,ZESTRIL) 20 mg tablet Take 1 tablet (20 mg total) by mouth in the morning. 30 tablet 1 09/14/2023 Active modafinil 200 mg oral tablet (20 sources) Sympathomimetic- like Agent Start: 01-01-2024 End: 02-29-2024 take 1 tablet by mouth once daily modafinil (Provigil) 200 MG tablet Indications: Attention deficit disorder without hyperactivity TAKE 1 TABLET BY MOUTH EVERY DAY 30 tablet 02/29/2024 Active Start: 08-28-2017 take 1 tablet by isaías th in the morning modafinil (Provigil) 200 MG tablet Indications: Attention deficit disorder without hyperactivity Take 1 tablet (200 mg) by mouth in the morning. 30 tablet 3 04/30/2023 Active morphine sulfate 15 mg extended release oral tablet (20 sources) Opioid Agonist Start: 01-30-2024 End: 06-27-2024 take 1 tablet by mouth in the morning, then take 1 tablet by mouth every twelve hours at bedtime morphine CR (MS Contin) 15 MG 12 hr tablet Indications: Lumbar radiculopathy Take 1 tablet (15 mg) by mouth in the morning and 1 tablet (15 mg) before bedtime. 60 tablet 06/26/2024 06/27/2024 Discontinued (Other) Start: 08-15-2023 take 1 tablet by isaías th in the morning, then take 1 tablet by mouth every twelve hours at bedtime morphine CR (MS Contin) 15 MG 12 hr tablet Indications: Radiculopathy, unspecified spinal region Take 1 tablet (15 mg) by mouth in the morning and 1 tablet (15 mg) before bedtime. 0 08/15/2023 Active Start: 11-30-2017 End: 08-15-2023 take 1 tablet by mouth every twelve hours at bedtime morphine (MS CONTIN) 30 mg 12 hr tablet Take 1 tablet (30 mg total) by mouth in the morning and at bedtime. 0 09/15/2022 Active pantoprazole 40 mg delayed release oral tablet (14 sources) Proton Pump Inhibitor Start: 09-13-2023 take 1 tablet by mouth in the morning pantoprazole (ProtoNix) 40 MG EC tablet Take 40 mg by mouth in the morning and 40 mg in the evening. Take before meals. 09/13/2023 Active potassium chloride 10 meq extended release oral capsule (20 sources) Start: 10-30-2017 End: 09-23-2024 take 1 capsule by mouth once daily potassium chloride ER (Micro-K) 10 MEQ ER capsule Indications: Hypokalemia Take 1 capsule (10 mEq) by mouth Daily 90 capsule 3 09/24/2023 09/23/2024 Active riTUXimab (17 sources) [id number] Cytolytic Antibody Start: 11-22-2011 riTUXimab (RITUXAN IV) every 6 (six) months. WITH RHEUMATOLOGY 11/22/2011 Active Start: 11-22-2011 riTUXimab (RIT UXAN IV) every 6 (six) months. WITH RHEUMATOLOGY 0 11/22/2011 Active rituximab (RITUX AN IV) Infuse into a venous catheter every 6 (six) months. 0 Active SITagliptin 100 mg oral tablet (20 sources) Dipeptidyl Peptidase 4 Inhibitor Start: 03-08-2018 take 1 tablet by mouth in the morning JANUVIA 100 mg tablet Take 1 tablet (100 mg total) by mouth in the morning. 0 07/14/2022 Active Start: 03-08-2018 Januvia 100 MG Oral Tablet Quantity: 30 Refills: 0 Ordered: 05-Jun-2018 DO Start : 08-Mar-2018 Active sucralfate 1000 mg oral tablet (2 sources) Aluminum Complex Start: 09-13-2023 sucralfate (C ARAFATE) 1 gram tablet Take 1 tablet (1 g total) by mouth in the morning and 1 tablet (1 g total) at noon and 1 tablet (1 g total) in the evening. 30 tablet 1 09/13/2023 Active Completed/Discontinued Medications Medication Drug Class(es) Dates Sig (Normalized) Sig (Original) acetaminophen 325 mg / oxyCODONE hydrochloride 5 mg oral tablet (6 sources) Opioid Agonist Start: 11-01-2017 oxyCODONE-Acetami nophen 5-325 MG Oral Tablet Quantity: 120 Refills: 0 Ordered: 01-Nov-2017 DO Start : 01-Nov-2017 Active [id number] 200 actuat albuterol 0.09 mg/actuat metered dose inhaler (20 sources) beta2-Adrenergic Agonist Start: 01-31-2018 ProAir HFA 108 (90 Base) MCG/ACT AERS Quantity: 8 Refills: 0 Ordered: 27-May-2018 DO Start : 31-Jan-2018 Active Start: 01-31-2018 ProAir HFA 108 (90 Base) MCG/ACT Inhalation Aerosol Solution Quantity: 8 Refills: 0 DO Start : 31-Jan-2018 Active take 2 puff(s) by in halation every four hours albuterol HFA (ProAir HFA) 90 mcg/act inhaler Inhale 2 puffs every 4 (four) hours if needed. Active take 2 puff(s) by in halation every four hours as needed albuterol (PROVENTIL HFA;VENTOLIN HFA) 90 mcg/actuation inhaler Inhale 2 puffs every 4 (four) hours as needed. 0 Active carbidopa 25 mg / levodopa 100 mg oral tablet (6 sources) Aromatic Amino Acid Decarboxylation Inhibitor, Aromatic Amino Acid Start: 07-27-2017 Carbidopa-Levodopa 2 5-100 MG Oral Tablet Quantity: 60 Refills: 0 Ordered: 11-Oct-2017 DO Start : 27-Jul-2017 Active citalopram 40 mg oral tablet (6 sources) Serotonin Reuptake Inhibitor Start: 03-28-2017 Citalopram Hydrobrom ifrah 40 MG Oral Tablet Quantity: 90 Refills: 0 Ordered: 11-Oct-2017 DO Start : 28-Mar-2017 Active Start: 03-28-2017 Citalopram Hyd robromide 40 MG Oral Tablet Quantity: 90 Refills: 0 DO Start : 28-Mar-2017 Active 0.65 ml exenatide 3.08 mg/ml pen injector (6 sources) GLP-1 Receptor Agonist Start: 01-25-2017 Bydureon 2 MG PEN Quantity: 4 Refills: 0 Ordered: 04-Nov-2017 DO Start : 25-Jan-2017 Active Start: 01-25-2017 Bydureon 2 MG Subcutaneous Pen-injector Quantity: 4 Refills: 0 DO Start : 25-Jan-2017 Active glimepiride 4 mg oral tablet (6 sources) Sulfonylurea Start: 12-05-2016 Glimepiride 4 MG Oral Tablet Quantity: 60 Refills: 0 Ordered: 11-Oct-2017 DO Start : 05-Dec-2016 Active Start: 12-05-2016 Glimepiride 4 MG Oral Tablet Quantity: 60 Refills: 0 DO Start : 05-Dec-2016 Active hydroxychloroquine sulfate 200 mg oral tablet (6 sources) Antimalarial, Antirheumatic Agent Start: 08-27-2017 Hydroxychloroquine Sulfate 200 MG Oral Tablet Quantity: 60 Refills: 0 Ordered: 20-Oct-2017 DO Start : 27-Aug-2017 Active Start: 08-27-2017 Hydroxychloroq uine Sulfate 200 MG Oral Tablet Quantity: 60 Refills: 0 DO Start : 27-Aug-2017 Active pregabalin 100 mg oral capsu le (6 sources) Start: 11-26-2017 Lyrica 100 MG Oral Capsule Quantity: 90 Refills: 0 Ordered: 26-Nov-2017 DO Start : 26-Nov-2017 Active Start: 11-26-2017 Lyrica 100 MG Oral Capsule Quantity: 90 Refills: 0 DO Start : 26-Nov-2017 Active rOPINIRole 2 mg oral tablet (6 sources) Nonergot Dopamine Agonist Start: 09-26-2017 rOPINIRole HCl - 2 M G Oral Tablet Quantity: 30 Refills: 0 Ordered: 12-Oct-2017 DO Start : 26-Sep-2017 Active Start: 09-26-2017 rOPINIRole HCl - 2 MG Oral Tablet Quantity: 30 Refills: 0 DO Start : 26-Sep-2017 Active rosuvastatin calcium 20 mg oral tablet (6 sources) HMG-CoA Reductase Inhibitor Start: 03-26-2017 Rosuvastatin Calcium 20 MG Oral Tablet Quantity: 90 Refills: 0 Ordered: 11-Oct-2017 DO Start : 26-Mar-2017 Active Start: 03-26-2017 Rosuvastatin C alcium 20 MG Oral Tablet Quantity: 90 Refills: 0 DO Start : 26-Mar-2017 Active tiZANidine 4 mg oral tablet (6 sources) Central alpha-2 Adrenergic Agonist Start: 05-17-2017 tiZANidine HCl - 4 M G Oral Tablet Quantity: 90 Refills: 0 Ordered: 11-Oct-2017 DO Start : 17-May-2017 Active Start: 05-17-2017 tiZANidine HCl - 4 MG Oral Tablet Quantity: 90 Refills: 0 DO Start : 17-May-2017 Active Problems Active Problems Problem Classification Problem Date Documented Date Episodic/Chronic Acquired foot deformities (2 sources) Hallux valgus (acquired), right foot; Translations: [Other hammer toe(s) (acquired), right foot] Onset: 3 Chronic Acquired foot deformities (1 source) Bunion of right foot; Translations: [BUNION OF RIGHT FOOT] Onset: 3 Episodic Acute cerebrovascular disease (17 sources) Cerebral infarction; Translations: [Cerebral infarction, unspecified] Onset: 3 12-20-2022 Chronic Acute myocardial infarction (20 sources) Non-ST elevation (NSTEMI) myocardial infarction; Translations: [Myocardial infarction] Onset: 3 12-20-2022 Chronic Anxiety disorders (17 sources) Mixed anxiety and depressive disorder; Translations: [Anxiety disorder, unspecified] Onset: 4 12-20-2022 Chronic Calculus of urinary tract (1 source) Calculus of kidney; Translations: [Calculus of kidney] Onset: 3 Episodic Chronic obstructive pulmonary disease and bronchiectasis (20 sources) Chronic obstructive pulmonary disease, unspecified; Translations: [Chronic obstructive lung disease] Onset: 8 11-20-2022 Chronic Chronic ulcer of skin (20 sources) Non-pressure chronic ulcer of other part of right foot limited to breakdown of skin; Translations: [Non-pressure chronic ulcer of other part of right foot with unspecified severity] Onset: 2 Chronic Coagulation and hemorrhagic disorders (7 sources) Thrombocytopenia, unspecified; Translations: [Thrombocytopenic disorder] Onset: 9 Chronic Congestive heart failure; nonhypertensive (19 sources) Heart failure with reduced ejection fraction; Translations: [Unspecified systolic (congestive) heart failure] Onset: 3 02-15-2023 Chronic Coronary atherosclerosis and other heart disease (20 sources) Atherosclerotic heart disease of [place] coronary artery without angina pectoris; Translations: [Coronary atherosclerosis] Onset: 8 Chronic Coronary atherosclerosis and other heart disease (1 source) Presence of aortocoronary bypass graft; Translations: [Presence of aortocoronary bypass graft] Onset: 4 Episodic Diabetes mellitus with complications (20 sources) Diabetes mellitus due to underlying condition with hyperosmolarity without nonketotic hyperglycemic-hyperosmol ar coma (NKHHC); Translations: [Type 2 diabetes mellitus with diabetic polyneuropathy] Onset: 8 Chronic Disorders of lipid metabolism (20 sources) Mixed hyperlipidemia; Translations: [Mixed hyperlipidemia] Onset: 8 11-07-2022 Chronic Disorders usually diagnosed in infancy, childhood, or adolescence (20 sources) Attention deficit hyperactivity disorder, predominantly inattentive type; Translations: [Other specified behavioral and emotional disorders with onset usually occurring in childhood and adolescence] Onset: 9 Resolved: 4 11-07-2022 Chronic Essential hypertension (20 sources) Essential (primary) hypertension; Translations: [Hypertensive disorder] Onset: 8 Resolved: 4 11-07-2022 Chronic Genitourinary symptoms and ill-defined conditions (20 sources) Female stress incontinence; Translations: [Stress incontinence (female) (male)] Onset: 4 12-20-2022 Chronic Genitourinary symptoms and ill-defined conditions (1 source) Stress incontinence (female) (male); Translations: [Stress incontinence (female) (male)] Onset: 8 Headache, including migraine (16 sources) Migraine without aura, not intractable, with status migrainosus; Translations: [Migraine] Onset: 8 12-20-2022 Chronic Hepatitis (1 source) Nonalcoholic steatohepatitis (CARRASCO); Translations: [NONALCOHOLIC STEATOHEPATITIS] Onset: 3 Chronic Joint disorders and dislocations; trauma-related (1 source) Dislocation of metatarsophalangeal joint of right lesser toe(s), sequela; Translations: [DISLOC MTP JOINT RT LESSER TOES SEQ] Onset: 3 Episodic Malaise and fatigue (17 sources) Chronic fatigue syndrome; Translations: [Chronic fatigue syndrome] Onset: 3 11-07-2022 Chronic Menopausal disorders (17 sources) Primary ovarian failure; Translations: [Other primary ovarian failure] Onset: 3 11-07-2022 Chronic Mood disorders (18 sources) Major depressive disorder, single episode, unspecified; Translations: [Moderate major depression, single episode] Onset: 2 11-07-2022 Chronic Multiple sclerosis (20 sources) Multiple sclerosis; Translations: [H/O: DRY ROASTER disorder] Onset: 4 12-20-2022 Chronic Mycoses (2 sources) Tinea corporis; Translations: [Tinea corporis] 08-15-2023 Episodic Nausea and vomiting (1 source) Nausea with vomiting, unspecified; Translations: [NAUSEA WITH VOMITING UNSPECIFIED] Onset: 3 Episodic Nutritional deficiencies (17 sources) Vitamin D deficiency; Translations: [Vitamin D deficiency, unspecified] Onset: 3 11-07-2022 Chronic Occlusion or stenosis of precerebral arteries (1 source) Occlusion and stenosis of bilateral carotid arteries; Translations: [Occlusion and stenosis of bilateral carotid arteries] Onset: 4 Chronic Osteoarthritis (17 sources) Osteoarthritis; Translations: [Unspecified osteoarthritis, unspecified site] Onset: 3 12-20-2022 Chronic Other aftercare (7 sources) longterm methotrexate user; Translations: [Long-term (current) use of other medications] Episodic Other aftercare (1 source) Other assisted (current) drug therapy; Translations: [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] Onset: 3 Episodic Other circulatory disease (17 sources) Raynaud's phenomenon; Translations: [Raynaud's syndrome without gangrene] Onset: 3 11-07-2022 Chronic Other circulatory disease (6 sources) H/O: heart disorder; Translations: [Personal history of other diseases of circulatory system] Episodic Other diseases of kidney and ureters (1 source) Disorder of kidney and ureter, unspecified; Translations: [Disorder of kidney and ureter, unspecified] Onset: 3 Episodic Other gastrointestinal disorders (6 sources) H/O: liver disease; Translations: [Personal history of other diseases of digestive system] Episodic Other gastrointestinal disorders (1 source) Diarrhea, unspecified; Translations: [DIARRHEA UNSPECIFIED] Onset: 3 Episodic Other hereditary and degenerative nervous system conditions (2 sources) Restless legs syndrome; Translations: [Restless legs syndrome] Onset: 4 Chronic Other hereditary and degenerative nervous system conditions (17 sources) Restless legs; Translations: [Restless legs syndrome] Onset: 3 12-20-2022 Chronic Other liver diseases (14 sources) Fatty (change of) liver, not elsewhere classified; Translations: [Steatosis of liver] Onset: 9 Chronic Other liver diseases (5 sources) Cirrhosis of liver; Translations: [Cirrhosis of liver without mention of alcohol] Chronic Other liver diseases (6 sources) Unspecified cirrhosis of liver; Translations: [Unspecified cirrhosis of liver] Onset: 3 Chronic Other liver diseases (17 sources) Steatosis of liver; Translations: [Fatty (change of) liver, not elsewhere classified] Onset: 3 11-07-2022 Chronic Other liver diseases (2 sources) Hepatic encephalopathy; Translations: [Hepatic encephalopathy] Onset: 4 Episodic Other lower respiratory disease (4 sources) Shortness of breath; Translations: [SHORTNESS OF BREATH] Onset: 3 Episodic Other lower respiratory disease (1 source) Shortness of breath Onset: 4 Episodic Other nervous system disorders (1 source) Chronic pain syndrome; Translations: [Chronic pain syndrome] Onset: 8 Chronic Other nervous system disorders (20 sources) Carpal tunnel syndrome; Translations: [Carpal tunnel syndrome, unspecified upper limb] Onset: 9 11-07-2022 Chronic Other nervous system disorders (17 sources) Chronic pain; Translations: [Other chronic pain] Onset: 3 11-07-2022 Chronic Other nervous system disorders (15 sources) Peripheral nerve disease ; Translations: [Polyneuropathy, unspecified] Onset: 3 12-20-2022 Chronic Other nervous system disorders (1 source) Other acute postprocedural pain; Translations: [Other acute postprocedural pain] Onset: 4 Episodic Other non-traumatic joint disorders (1 source) Pain in right ankle and joints of right foot; Translations: [PAIN IN RIGHT ANKLE] Onset: 3 Episodic Other nutritional; endocrine; and metabolic disorders (1 source) Obesity, unspecified; Translations: [OBESITY UNSPECIFIED] Onset: 2 Chronic Other nutritional; endocrine; and metabolic disorders (1 source) Body mass index (BMI) 32.0-32.9, adult; Translations: [BODY MASS INDEX BMI 32.0-32.9 ADULT] Onset: 2 Chronic Other nutritional; endocrine; and metabolic disorders (17 sources) Body mass index 30+ - obesity; Translations: [Obesity, unspecified] Onset: 3 11-07-2022 Chronic Other skin disorders (1 source) Nail dystrophy; Translations: [NAIL DYSTROPHY] Onset: 3 Episodic Other skin disorders (1 source) Corns and callosities; Translations: [CORNS AND CALLOSITIES] Onset: 3 Episodic Other upper respiratory disease (15 sources) Allergic rhinitis; Translations: [Other allergic rhinitis] Onset: 3 11-07-2022 Chronic Other upper respiratory infections (15 sources) Sinusitis; Translations: [Chronic sinusitis, unspecified] Onset: 0 12-20-2022 Chronic Other upper respiratory infections (2 sources) Acute sinusitis; Translations: [Acute sinusitis, unspecified] 08-15-2023 Episodic Otitis media and related conditions (2 sources) Acute otitis media; Translations: [Otitis media, unspecified, unspecified ear] 08-15-2023 Episodic Peripheral and visceral atherosclerosis (16 sources) Peripheral vascular disease, unspecified; Translations: [Peripheral vascular disease] Onset: 3 11-07-2022 Chronic Phlebitis; thrombophlebitis and thromboembolism (5 sources) Phlebitis and thrombophlebitis of superficial vessels of right lower extremity; Translations: [Phlebitis and thrombophlebitis of superficial vessels of unspecified lower extremity] Onset: 3 Episodic Prolapse of female genital organs (1 source) Rectocele; Translations: [Rectocele] Onset: 8 Chronic Residual codes; unclassified (1 source) Sleep apnea, unspecified; Translations: [SLEEP APNEA UNSPECIFIED] Onset: 3 Chronic Residual codes; unclassified (15 sources) Obstructive sleep apnea syndrome; Translations: [Obstructive sleep apnea (adult) (pediatric)] Onset: 3 11-07-2022 Chronic Residual codes; unclassified (15 sources) Sleep apnea; Translations: [Sleep apnea, unspecified] Onset: 3 12-20-2022 Chronic Residual codes; unclassified (6 sources) Past history of procedure; Translations: [Blood transfusion, without reported diagnosis] Episodic Residual codes; unclassified (1 source) Acquired absence of both cervix and uterus; Translations: [ACQUIRED ABSENCE BOTH CERVIX AND UTERUS] Onset: 3 Episodic Residual codes; unclassified (1 source) Pain, unspecified; Translations: [Pain, unspecified] Onset: 4 Episodic Residual codes; unclassified (1 source) Acquired absence of other specified parts of digestive tract; Translations: [Acquired absence of other specified parts of digestive tract] Onset: 4 Episodic Rheumatoid arthritis and related disease (20 sources) Rheumatoid arthritis; Translations: [Rheumatoid arthritis] Onset: 2 Chronic Skin and subcutaneous tissue infections (1 source) Cellulitis of right toe; Translations: [CELLULITIS OF RIGHT TOE] Onset: 3 Episodic Spondylosis; intervertebral disc disorders; other back problems (20 sources) Degeneration of lumbar intervertebral disc; Translations: [Other intervertebral disc degeneration, lumbar region] Onset: 5 11-20-2022 Chronic Unclassified (1 source) Sleep apnea, unspecified; Translations: [Sleep apnea, unspecified] Onset: 4 Unclassified (1 source) Unknown / UNK(Unknown) Onset: 7 Unclassified (1 source) Other assisted (current) drug therapy Onset: 9 Unclassified (1 source) PERSONAL HISTORY OF COVID-19; Translations: [PERSONAL HISTORY OF COVID-19] Onset: 3 Unclassified (3 sources) 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 agent; Translations: [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 agent] Onset: 3 Unclassified (1 source) Post-op Onset: 4 Unclassified (1 source) Elevation of levels of liver transaminase levels; Translations: [Elevation of levels of liver transaminase levels] Onset: 4 Unclassified (1 source) choledocholithiasis Onset: 4 Unclassified (1 source) Rheumatoid arthritis with rheumatoid factor of multiple sites without organ or systems involvement; Translations: [Rheumatoid arthritis with rheumatoid factor of multiple sites without organ or systems involvement] Onset: 3 Unclassified (1 source) Hospital Follow-up Onset: 4 Unclassified (1 source) Esophagitis, unspecified without bleeding; Translations: [Esophagitis, unspecified without bleeding] Onset: 4 Unclassified (2 sources) Patient encounter status 05-13-2024 Varicose veins of lower extremity (4 sources) Varicose veins of bilateral lower extremities with pain; Translations: [VARICOSE VNS DONN LOW EXTREM W/PAIN] Onset: 3 Episodic Past or Other Problems Problem Classification Problem Date Documented Da te Episodic/Chronic Biliary tract disease (20 sources) Cholelithiasis without obstruction; Translations: [Calculus of gallbladder without cholecystitis without obstruction] Onset: 11-07-2022 11-07-2022 Episodic Complication of device; implant or graft (2 sources) Erosion of implanted vaginal mesh to surrounding organ or tissue, initial encounter; Translations: [Exposure of implanted vaginal mesh into vagina, subsequent encounter] Onset: 07-19-2017 Episodic Complications of surgical procedures or medical care (1 source) Other complications of procedures, not elsewhere classified, initial encounter; Translations: [OTH COMPLICATIONS PROC NEC INITIAL] Onset: 02-03-2022 Episodic Diabetes mellitus without complication (20 sources) Type 2 diabetes mellitus without complications; Translations: [Type 2 diabetes mellitus] Onset: 04-13-2015 Resolved: 01-01-2024 11-20-2022 Chronic Medical examination/evaluation (1 source) Encounter for other preprocedural examination; Translations: [Encounter for other preprocedural examination] Onset: 08-02-2017 Episodic Mood disorders (11 sources) Mood disorders; Translations: [DEPRESSION UNSPECIFIED] Onset: 09-08-2023 Resolved: 05-13-2024 09-08-2023 Other aftercare (15 sources) Long-term current use of insulin; Translations: [longterm (current) use of insulin] Onset: 11-21-2018 12-20-2022 Episodic Other bone disease and musculoskeletal deformities (17 sources) Osteopenia; Translations: [Other specified disorders of bone density and structure, unspecified site] Onset: 11-07-2022 11-07-2022 Episodic Other circulatory disease (1 source) Personal history of transient ischemic attack (TIA), and cerebral infarction without residual deficits; Translations: [Personal history of transient ischemic attack (TIA), and cerebral infarction without residual deficits] Onset: 08-02-2017 Episodic Other gastrointestinal disorders (14 sources) Drug-induced constipation; Translations: [Drug induced constipation] Onset: 01-01-2024 01-01-2024 Episodic Other lower respiratory disease (20 sources) Multiple nodules of lung; Translations: [Other nonspecific abnormal finding of lung field] Onset: 10-06-2020 11-07-2022 Episodic Other nervous system disorders (1 source) H/O: DRY ROASTER disorder; Translations: [History of multiple sclerosis] Episodic Other screening for suspected conditions (not mental disorders or infectious disease) (20 sources) Platelet count below reference range; Translations: [Other specified abnormal findings of blood chemistry] Onset: 12-01-2004 Resolved: 01-01-2024 11-20-2022 Episodic Screening and history of mental health and substance abuse codes (20 sources) Personal history of nicotine dependence; Translations: [Ex-smoker] Onset: 12-09-2018 12-20-2022 Episodic Shock (19 sources) Cardiogenic shock; Translations: [Cardiogenic shock] Onset: 10-01-2022 12-20-2022 Episodic Spondylosis; intervertebral disc disorders; other back problems (20 sources) Cervical radiculopathy; Translations: [Radiculopathy, cervical region] Onset: 12-23-2015 11-07-2022 Episodic Substance-related disorders (20 sources) Nicotine dependence, unspecified, uncomplicated; Translations: [Nicotine dependence, cigarettes, with other nicotine-induced disorders] Onset: 08-04-2013 Resolved: 01-01-2024 12-20-2022 Chronic Unclassified (1 source) longterm (current) use of antimetabolite agent; Translations: [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 agent] Onset: 03-26-2023 Unclassified (1 source) Esophagitis, unspecified without bleeding; Translations: [Esophagitis, unspecified without bleeding] Onset: 04-30-2024 NEGATED: Highlighted row has not occurred!Residual codes; unclassified (2 sources) Disease Episodic Results Test Name Value Interpretation Reference Range Facility ALL CBC WITH AUTO DIFFon BASOPHILS ABSOLUTE AUTO 0 [facility] Basophils/100 WBC (Bld) 0.7 % 0.2 - 2.0 % [facility] Eosinophils/100 WBC (Bld) 2.4 % 0.9 - 7.0 % [facility] Erythrocyte distribution width (RBC) [Ratio] 13.3 % 11.0 - 15.0 % [facility] Hematocrit (Bld) [Volume fraction] 44.8 % 36.0 - 48.0 % [facility] Hemoglobin (Bld) [Mass/Vol] 15 g/dL 12.0 - 16.0 g/dL [facility] IMMATURE GRANULOCYTES ABS AUTO 0.02 [facility] Immature granulocytes/100 WBC (Bld) 0.3 % 0.0 - 0.5 % [facility] Interpretation and review of laboratory results Abnormal [facility] LYMPHOCYTES ABSOLUTE AUTO 0.8 Low [facility] Lymphocytes/100 WBC (Bld) 13.7 % Low 20.5 - 60.0 % [facility] MCH (RBC) [Entitic mass] 29.1 pg 26.7 - 34.0 pg [facility] MCHC (RBC) [Mass/Vol] 33.5 g/dL 29.9 - 35.2 g/dL [facility] MCV (RBC) [Entitic vol] 87 fL 81.0 - 99.0 fL [facility] MONOCYTES ABSOLUTE AUTO 0.5 [facility] Monocytes/100 WBC (Bld) 7.8 % 1.7 - 12.0 % [facility] NEUTROPHILS ABSOLUTE AUTO 4.6 [facility] Neutrophils/100 WBC (Bld) 75.1 % High 43.0 - 75.0 % [facility] Platelet mean volume (Bld) [Entitic vol] 10.9 fL 9.5 - 13.5 fL [facility] TBH EO # 0.2 [facility] TB PLT 148 Low [facility] RBC 5.15 [facility] WBC 6.1 [facility] HbA1c (Bld) [Mass fraction]o n 05-13-2024 [facility] Laboratory - Hematology and Cell countson 05-13-2024 HbA1c (Bld) [Mass fraction] 6 % [facility] Follow-Upon 04-30-2024 Follow-Up [id number] Anjelica Abdi radha 1960 F Date Provider Department [place] 04/30/2024 HOWARD ROSA [facility] No family history on file Level of Service:71390 [place] OFFICE/OUTPATIENT ESTABLISHED MOD MDM 30 MIN (GC) Reason for Visit and Comments: Follow-up [[id number]] [facility] 04-18-2024 Refill [id number] JinAnjelica garcia 1960 Provider Department [place] 04/18/2024 BENNIE HOWARD [facility] No family history on file Reason for Visit and Comments: Med Refill [[id number]] [facility] 36on 04-02-2024 36 Manager Resource left a messag e for the patient to call the office, wanted to know if she wants to switch appointment to June. [facility] on 12-10-2023 36 Called to schedule E GD. No answer. Left a VM to return my call @ [phone]. [facility] 36on 11-21-2023 36 Patient was supposed to be on PPI BID x 8 weeks only for duodenal ulcer. No indication to continue. She needs to schedule an office follow up for cirrhosis with Dr Abbasi or Dr Kolb [facility] 36on 11-19-2023 36 Manager Resource called [facility] to see what was up with prescription and [facility] stated they would put [facility] for a refill. [facility] 11-17-2023 Refill [id number] AbdiAnjelica 1960 Provider Department [place] 11/17/2023 KIP BARNETT [facility] No family history on file Reason for Visit and Comments: Med Change Request [[id number]] [facility] AFP Tumor Marker, Serumon 05 -09-2024 AFP Tumor Marker, Serum 2.4 ng/mL Normal 0.0-9.2 [facility] Comment on above: Result Comment: [facility] Electrochemiluminescence Immunoassay (ECLIA) Values obtained with different assay methods or kits cannot be used interchangeably. Results cannot be interpreted as absolute evidence of the presence or absence of malignant disease. This test is not interpretable in females. Performed at: - [facility] [id number] Executive Staff Assistant: Dudley Mirza PhD, Phone: [phone] PERFORMED BY: [place] [address] PATHOLOGIST EMPLOYEE PLACEMENT SPECIALIST STEPHENIE SULLIVAN M.D. Performed By: #### P T, CMP #### [place] [address] [place] #### AFPTM #### [facility] , Alanine aminotransferase [En zymatic activity/volume] in Serum or PlasmaOrdered By: Howard Kolb on 11-08-2023 ALT [Catalytic activity/Vol] 14 U/L 7-52 [facility] Albumin [Mass/volume] in Ser um or Plasma by Bromocresol green (BCG) dye binding methoOrdered By: Howard Kolb on 11-08-2023 Albumin BCG dye [Mass/Vol] 4.4 g/dL 3.5-5.7 [facility] Alkaline phosphatase [Enzyma tic activity/volume] in Serum or PlasmaOrdered By: Howard Kolb on 11-08-2023 ALP [Catalytic activity/Vol] 68 U/L 34-104 [facility] Aspartate aminotransferase [ Enzymatic activity/volume] in Serum or PlasmaOrdered By: Howard Kolb on 11-08-2023 AST [Catalytic activity/Vol] 16 U/L 13-39 [facility] Bilirubin.total [Mass/volume ] in Serum or PlasmaOrdered By: Howard Kolb on 11-08-2023 Bilirubin [Mass/Vol] 0.9 mg/dL 0.3-1.0 [facility] Calcium [Mass/volume] in Ser um or PlasmaOrdered By: Howard Kolb on 11-08-2023 Calcium [Mass/Vol] 9.4 mg/dL 8.6-10.3 [facility] Carbon dioxide, total [Moles /volume] in Serum or PlasmaOrdered By: Howard Kolb on 11-08-2023 CO2 [Moles/Vol] 26.2 mmol/L 21.0-31.0 [facility] Chloride [Moles/volume] in S andre or PlasmaOrdered By: Howard Kolb on 11-08-2023 Chloride [Moles/Vol] 107 mmol/L 98-107 [facility] Comprehensive Metabolic Pane dick 11-08-2023 Albumin [Mass/Vol] 4.4 g/dL Normal 3.5-5.7 [facility] Comment on above: Performed By: #### P T, CMP #### [facility] [address] [place] [address] [place] #### AFPTM #### [facility] , Albumin/Globulin [Mass ratio] 2.2 {ratio} Normal [facility] Comment on above: Performed By: #### P T, CMP #### [place] [address] [place] #### AFPTM #### [facility] , ALP [Catalytic activity/Vol] 68 U/L Normal 34-104 [facility] Comment on above: Result Comment: PERF ORMED BY: [place] [address] PATHOLOGIST EMPLOYEE PLACEMENT SPECIALIST STEPHENIE SULLIVAN M.D. Performed By: #### P T, CMP #### [facility] [address] [place] [address] [place] #### AFPTM #### [facility] , ALT [Catalytic activity/Vol] 14 U/L Normal 7-52 [facility] Comment on above: Performed By: #### P T, CMP #### [facility] [address] [place] [address] [place] #### AFPTM #### [facility] , Anion gap [Moles/Vol] 7.7 mmol/L Normal 6.0-15.0 [facility] Comment on above: Performed By: #### P T, CMP #### [facility] [address] [place] [address] [place] #### AFPTM #### [facility] , AST [Catalytic activity/Vol] 16 U/L Normal 13-39 [facility] Comment on above: Performed By: #### P T, CMP #### [facility] [address] [place] [address] [place] #### AFPTM #### [facility] , Bilirubin [Mass/Vol] 0.9 mg/dL Normal 0.3-1.0 [facility] Comment on above: Performed By: #### P T, CMP #### [facility] [address] [place] [address] [place] #### AFPTM #### [facility] , Calcium [Mass/Vol] 9.4 mg/dL Normal 8.6-10.3 [facility] Comment on above: Performed By: #### P T, CMP #### [facility] [address] [place] [address] [place] #### AFPTM #### [facility] , Chloride [Moles/Vol] 107 mmol/L Normal 98-107 [facility] Comment on above: Performed By: #### P T, CMP #### [facility] [address] [place] [address] [place] #### AFPTM #### [facility] , CO2 [Moles/Vol] 26.2 mmol/L Normal 21.0-31.0 [facility] Comment on above: Performed By: #### P T, CMP #### [facility] [address] [place] [address] [place] #### AFPTM #### [facility] , Creatinine [Mass/Vol] 0.72 mg/dL Normal 0.60-1.20 [facility] Comment on above: Performed By: #### P T, CMP #### [place] [address] [place] #### AFPTM #### [facility] , GFR/1.73 sq M.predicted MDRD (S/P/Bld) [Vol rate/Area] mL/min/{1.73_m2} Normal [facility] Comment on above: Performed By: #### P T, CMP #### [place] [address] [place] #### AFPTM #### [facility] , Globulin (S) [Mass/Vol] 2.0 g/dL Normal [facility] Comment on above: Performed By: #### P T, CMP #### [place] [address] [place] #### AFPTM #### [facility] , Glucose [Mass/Vol] 138 mg/dL High 70-100 [facility] Comment on above: Result Comment: Leslie Glucose Reference Range is dependent on time and content of last meal. Glucose of more than 200 mg/dL in a nonstressed, ambulatory subject supports the diagnosis of Diabetes Mellitus. ADA recommended reference range Performed By: #### P T, CMP #### [place] [address] [place] #### AFPTM #### [facility] , Potassium [Moles/Vol] 3.9 mmol/L Normal 3.5-5.1 [facility] Comment on above: Performed By: #### P T, CMP #### [place] [address] [place] #### AFPTM #### [facility] , Protein [Mass/Vol] 6.4 g/dL Normal 6.4-8.9 [facility] Comment on above: Performed By: #### P T, CMP #### [place] [address] [place] #### AFPTM #### [facility] , Sodium [Moles/Vol] 137 mmol/L Normal 136-145 [facility] Comment on above: Performed By: #### P T, CMP #### [facility] [address] [place] [address] [place] #### AFPTM #### [facility] , Urea nitrogen [Mass/Vol] 28 mg/dL High 7-25 [facility] Comment on above: Performed By: #### P T, CMP #### [facility] [address] [place] [address] [place] #### AFPTM #### [facility] , Creatinine [Mass/volume] in Serum or PlasmaOrdered By: Howard Kolb on 11-08-2023 Creatinine [Mass/Vol] 0.72 mg/dL 0.60-1.20 [facility] Globulin Calc (S) [Mass/Vol] Ordered By: Howard Kolb on 11-08-2023 Globulin (S) [Mass/Vol] 2.0 g/dL [facility] Glucose [Mass/volume] in Ser um or PlasmaOrdered By: Howard Kolb on 11-08-2023 Glucose [Mass/Vol] 138 mg/dL 70-100 [facility] Comment on above: ADA recommended refe rence rangeRandom Glucose Reference Range is dependent on time and content of last meal. Glucose of more than 200 mg/dL in a nonstressed, ambulatory subject supports the diagnosis of Diabetes Mellitus. INR in Platelet poor plasma by Coagulation assayOrdered By: Howard Kolb on 11-08-2023 INR Coag (PPP) [Relative time] 1.1 {INR} [facility] Comment on above: INR Therapeutic Rang e A) Pre- and Peroperative OAT started two weeks before surgery. NOT HIP SURGERY: 1.5 - 2.5 HIP SURGERY: 2 - 3B) Primary and secondary prevention of venous THROMBOSIS: 2 - 3C) Active venous thrombosis, pulmonary embolismand prevention of recurrent venous thrombosis: 2 - 3D) Prevention of arterial thromboembolismincluding patients with mechanical heart valves: 3 - 4.5 No Panel InformationOrdered By: Howard Kolb on 11-08-2023 Estimated GFR (CKD-EPI) > 60.0 mL/Min [facility] Creatinine Clearance (Chem N/A [facility] Potassium [Moles/volume] in Serum or PlasmaOrdered By: Howard Kolb on 11-08-2023 Potassium [Moles/Vol] 3.9 mmol/L 3.5-5.1 [facility] Protein [Mass/volume] in Ser um or PlasmaOrdered By: Howard Kolb on 11-08-2023 Protein [Mass/Vol] 6.4 g/dL 6.4-8.9 [facility] Prothrombin Time INRon 11-07 INR Coag (PPP) [Relative time] 1.1 {INR} Normal [facility] Comment on above: Result Comment: INR Therapeutic Range A) Pre- and Peroperative OAT started two weeks before surgery. NOT HIP SURGERY: 1.5 - 2.5 HIP SURGERY: 2 - 3 B) Primary and secondary prevention of venous THROMBOSIS: 2 - 3 C) Active venous thrombosis, pulmonary embolism and prevention of recurrent venous thrombosis: 2 - 3 D) Prevention of arterial thromboembolism including patients with mechanical heart valves: 3 - 4.5 PERFORMED BY: [place] [address] PATHOLOGIST [employer]OY[employer]AC[employer]IST STEPHENIE SULLIVAN M.D. Performed By: #### P T, CMP #### [facility] [address] [place] [address] #### AFPTM #### [facility] , PT Coag (PPP) [Time] 12.1 s Normal 9.0-12.9 [facility] Comment on above: Result Comment: A he matocrit value greater than 55% may lead to inaccurate results in coagulation testing. Patients having hematocrit values >55% require a special collection tube for coagulation studies. Please contact the laboratory at [phone] for redraw instructions. Performed By: #### P T, CMP #### [facility] [address] [place] [address] [place] #### AFPTM #### [facility] , Prothrombin time (PT)Ordered By: Howard Kolb on 11-08-2023 PT Coag (PPP) [Time] 12.1 s 9.0-12.9 [facility] Comment on above: A hematocrit value g reater than 55% may lead to inaccurate results in coagulation testing. Patients having hematocrit values >55% require a special collection tube for coagulation studies. Please contact the laboratory at [phone] for redraw instructions. Serum or plasma albumin/glob ulin mass ratioOrdered By: Howard Kolb on 11-08-2023 Albumin/Globulin [Mass ratio] 2.2 {ratio} [facility] Serum or plasma anion gap de terminationOrdered By: Howard Kolb on 11-08-2023 Anion gap [Moles/Vol] 7.7 mmol/L 6.0-15.0 [facility] Sodium [Moles/volume] in Ser um or PlasmaOrdered By: Howard Kolb on 11-08-2023 Sodium [Moles/Vol] 137 mmol/L 136-145 [facility] Urea nitrogen [Mass/volume] in Serum or PlasmaOrdered By: Howard Kolb on 11-08-2023 Urea nitrogen [Mass/Vol] 28 mg/dL 7- [facility] Follow-Upon 10-24-2023 Follow-Up [id number] Anjelica Abdi 1960 F Date Provider Department Center 10/24/2023 HOWARD ROSA [facility] No family history on file Level of Service:77730 IA OFFICE/OUTPATIENT ESTABLISHED MOD MDM 30 MIN () Reason for Visit and Comments: Hospital Follow-up [832] Normal [facility] CBC AND AUTO DIFFon 09-13-19 24 ABSOLUTE BASOPHIL 0.0 X10E9/L Normal 0.0-0.2 [facility] Comment on above: Performed By: #### 3 2132-1 #### [facility] ([id number]) [address], [address] [place] [address] ABSOLUTE NEUTROPHIL 4.9 X10E9/L Normal 1.5-6.6 [facility] Comment on above: Performed By: #### 3 2132-1 #### [facility] ([id number]) [address], [address] [place] [address] Basophils/100 WBC (Bld) 0.4 % Normal [facility] Comment on above: Performed By: #### 3 2132-1 #### [facility] ([id number]) [address], [address] [place] [address] Eosinophils (Bld) [#/Vol] 0.2 10*3/uL Normal 0.0-0.4 [facility] Comment on above: Performed By: #### 3 2132-1 #### [facility] ([id number]) [address], [address] [place] [address] Eosinophils/100 WBC (Bld) 2.5 % Normal [facility] Comment on above: Performed By: #### 3 2132-1 #### [facility] ([id number]) [address], [address] [place] [address] Erythrocyte distribution width (RBC) [Ratio] 14.2 % Normal 11.5-15.0 [facility] Comment on above: Performed By: #### 3 2132-1 #### [facility] ([id number]) [address], [address] [place] [address] Hematocrit (Bld) [Volume fraction] 39.6 % Normal 35-47 [facility] Comment on above: Performed By: #### 3 2132-1 #### [facility] ([id number]) [address], [address] [place] [address] Hemoglobin (Bld) [Mass/Vol] 13.6 g/dL Normal 11.7-15.5 [facility] Comment on above: Performed By: #### 3 2132-1 #### [facility] ([id number]) [address], [address] [place] [address] Lymphocytes (Bld) [#/Vol] 0.8 10*3/uL Low 1.0-3.5 [facility] Comment on above: Performed By: #### 3 2132-1 #### [facility] ([id number]) [address], [address] [place] [address] Lymphocytes/100 WBC (Bld) 12.8 % Normal [facility] Comment on above: Performed By: #### 3 2132-1 #### [facility] ([id number]) [address], [address] [place] [address] MCH (RBC) [Entitic mass] 29.7 pg Normal 27-34 [facility] Comment on above: Performed By: #### 3 2132-1 #### [facility] ([id number]) [address], [address] [place] [address] MCHC (RBC) [Mass/Vol] 34.4 g/dL Normal 32-36 [facility] Comment on above: Performed By: #### 3 2132-1 #### [facility] ([id number]) [address], [address] [place] [address] MCV (RBC) [Entitic vol] 86 fL Normal 80-100 [facility] Comment on above: Performed By: #### 3 2132-1 #### [facility] ([id number]) [address], [address] [place] [address] Monocytes (Bld) [#/Vol] 0.6 10*3/uL Normal 0-0.9 [facility] Comment on above: Performed By: #### 3 2132-1 #### [facility] ([id number]) [address], [address] [place] [address] Monocytes/100 WBC (Bld) 9.1 % Normal [facility] Comment on above: Performed By: #### 3 2132-1 #### [facility] ([id number]) [address], [address] [place] [address] Neutrophils/100 WBC (Bld) 75.2 % Normal [facility] Comment on above: Performed By: #### 3 2132-1 #### [facility] ([id number]) [address], [address] [place] [address] Platelet mean volume (Bld) [Entitic vol] 9.3 fL Normal 7-12 [facility] Comment on above: Performed By: #### 3 2132-1 #### [facility] ([id number]) [address], [address] [place] [address] Platelets (Bld) [#/Vol] 92 10*3/uL Low 150-450 [facility] Comment on above: Performed By: #### 3 2132-1 #### [facility] ([id number]) [address], [address] [place] [address] RBC COUNT 4.59 X10E12/L Normal 3.80-5.20 [facility] Comment on above: Performed By: #### 3 2132-1 #### [facility] ([id number]) [address], [address] [place] [address] WBC (Bld) [#/Vol] 6.5 10*3/uL Normal 4.0-11.0 [facility] Comment on above: Performed By: #### 3 2132-1 #### [facility] ([id number]) [address], [address] [place] [address] COMPREHENSIVE METABOLIC PANE Dick 09-13-2023 Albumin [Mass/Vol] 3.5 g/dL Normal 3.2-5.3 [facility] Comment on above: Performed By: #### 3 2132-1 #### [facility] ([id number]) [address], [address] [place] [address] ALP [Catalytic activity/Vol] 91 U/L Normal 39-130 [facility] Comment on above: Performed By: #### 3 2132-1 #### [facility] ([id number]) [address] [place] [address] ALT [Catalytic activity/Vol] 66 U/L High 0-31 [facility] Comment on above: Performed By: #### 3 2132-1 #### [facility] ([id number]) [address] [place] [address] Anion gap [Moles/Vol] 5 mmol/L Normal 5-15 [facility] Comment on above: Performed By: #### 3 2132-1 #### [facility] ([id number]) [address] [place] [address] AST [Catalytic activity/Vol] 55 U/L High 0-41 [facility] Comment on above: Performed By: #### 3 2132-1 #### [facility] ([id number]) [address] [place] [address] Bilirubin [Mass/Vol] 2.0 mg/dL High 0.3-1.2 [facility] Comment on above: Performed By: #### 3 2132-1 #### [facility] ([id number]) [address] [place] [address] Calcium [Mass/Vol] 9.0 mg/dL Normal 8.5-10.5 [facility] Comment on above: Performed By: #### 3 2132-1 #### [facility] ([id number]) [address] [place] [address] Chloride [Moles/Vol] 105 mmol/L Normal 98-109 [facility] Comment on above: Performed By: #### 3 2132-1 #### [facility] ([id number]) [address] [place] [address] CO2 [Moles/Vol] 27 mmol/L Normal 22-32 [facility] Comment on above: Performed By: #### 3 2132-1 #### [facility] ([id number]) [address], [address] [place] [address] Creatinine [Mass/Vol] 0.38 mg/dL Low 0.40-1.00 [facility] Comment on above: Result Comment: METH OD TRACEABLE TO IDMS STANDARD Performed By: #### 3 2132-1 #### [facility] ([id number]) [address], [address] [place] [address] eGFR (CKD-EPI) NON-RACE DEPENDENT >90 Normal >59 [facility] Comment on above: Result Comment: Reported eGFR is based on the CKD-EPI 2020 equation that does not use a race coefficient. Performed By: #### 3 2132-1 #### [facility] ([id number]) [address], [address] [place] [address] Glucose [Mass/Vol] 136 mg/dL High 65-99 [facility] Comment on above: Performed By: #### 3 2132-1 #### [facility] ([id number]) [address], [address] [place] [address] Potassium [Moles/Vol] 4.2 mmol/L Normal 3.5-5.0 [facility] Comment on above: Performed By: #### 3 2132-1 #### [facility] ([id number]) [address], [address] [place] [address] Protein [Mass/Vol] 5.4 g/dL Low 6.0-8.0 [facility] Comment on above: Performed By: #### 3 2132-1 #### [facility] ([id number]) [address], [address] [place] [address] Sodium [Moles/Vol] 137 mmol/L Normal 134-146 [facility] Comment on above: Performed By: #### 3 2132-1 #### [facility] ([id number]) [address] [place] [address] Urea nitrogen [Mass/Vol] 17 mg/dL Normal 5-27 [facility] Comment on above: Performed By: #### 3 2132-1 #### [facility] ([id number]) [address], [address] [place] [address] MAGNESIUMon 09-13-2023 Magnesium [Mass/Vol] 1.9 mg/dL Normal 1.8-2.6 [facility] Comment on above: Performed By: #### 3 2132-1 #### [facility] ([id number]) [address], [address] [place] [address] CBC AND AUTO DIFFon 09-12-19 ABSOLUTE BASOPHIL 0.0 X10E9/L Normal 0.0-0.2 [facility] Comment on above: Performed By: #### [place], [address]-2, 44276-9, CBCA, 5196-1 ####[facility] ([id number])[address], [place] [address] ABSOLUTE NEUTROPHIL 6.2 X10E9/L Normal 1.5-6.6 [facility] Comment on above: Performed By: #### C MP, 79727-9, 73668-8, CBCA, 5196-1 ####[facility] ([id number])[address], [place] [address] Basophils/100 WBC (Bld) 0.2 % Normal [facility] Comment on above: Performed By: #### C MP, 66585-5, 77975-9, CBCA, 5196-1 ####[facility] ([id number])[address] [place] [address] Eosinophils (Bld) [#/Vol] 0.1 10*3/uL Normal 0.0-0.4 [facility] Comment on above: Performed By: #### C MP, 65822-9, 56043-4, CBCA, 5196-1 ####[facility] ([id number])[address] [address] Eosinophils/100 WBC (Bld) 1.0 % Normal [facility] Comment on above: Performed By: #### C MP, 71314-5, 50796-9, CBCA, 5196-1 ####[facility] ([id number])[address] [address] Erythrocyte distribution width (RBC) [Ratio] 14.0 % Normal 11.5-15.0 [facility] Comment on above: Performed By: #### C TORRI, 75504-0, 27653-0, CBCA, 5196-1 ####[facility] ([id number])[address] [address] Hematocrit (Bld) [Volume fraction] 38.6 % Normal 35-47 [facility] Comment on above: Performed By: #### C TORRI, 77370-6, 34720-5, CBCA, 519- ####[facility] ([id number])[address] [address] Hemoglobin (Bld) [Mass/Vol] 13.4 g/dL Normal 11.7-15.5 [facility] Comment on above: Performed By: #### C MP, 58613-1, 13195-6, CBCA, 5196-1 ####[facility] ([id number])[address] [address] Lymphocytes (Bld) [#/Vol] 0.6 10*3/uL Low 1.0-3.5 [facility] Comment on above: Performed By: #### C MP, 67588-0, 29181-7, CBCA, 5196-1 ####[facility] ([id number])[address], [place] [address] Lymphocytes/100 WBC (Bld) 7.9 % Normal [facility] Comment on above: Performed By: #### C MP, 11562-6, 50002-3, CBCA, 519-1 ####[facility] ([id number])[address], [place] [address] MCH (RBC) [Entitic mass] 30.0 pg Normal 27-34 [facility] Comment on above: Performed By: #### C TORRI, 23661-9, 49039-1, CBCA, 519-1 ####[facility] ([id number])[address] [place] [address] MCHC (RBC) [Mass/Vol] 34.8 g/dL Normal 32-36 [facility] Comment on above: Performed By: #### C TORRI, 96282-1, 16177-9, CBCA, 5195-1 ####[facility] ([id number])[address], [place] [address] MCV (RBC) [Entitic vol] 86 fL Normal 80-100 [facility] Comment on above: Performed By: #### C TORRI, 97544-7, 73097-2, CBCA, 5196-1 ####[facility] ([id number])[address], [address] [place] [address] Monocytes (Bld) [#/Vol] 0.6 10*3/uL Normal 0-0.9 [facility] Comment on above: Performed By: #### C MP, 02710-7, 13408-8, CBCA, 5196-1 ####[facility] ([id number])[address], [place] [address] Monocytes/100 WBC (Bld) 8.6 % Normal [facility] Comment on above: Performed By: #### C MP, 74491-6, 27578-5, CBCA, 5196-1 ####[facility] ([id number])[address] [address] [place] [address] Neutrophils/100 WBC (Bld) 82.3 % Normal [facility] Comment on above: Performed By: #### C MP, 25241-6, 97607-4, CBCA, 5196-1 ####[facility] ([id number])[address] [address] [place] [address] Platelet mean volume (Bld) [Entitic vol] 9.4 fL Normal 7-12 [facility] Comment on above: Performed By: #### C MP, 38128-9, 10690-4, CBCA, 5196-1 ####[facility] ([id number])[address] [address] [place] [address] Platelets (Bld) [#/Vol] 86 10*3/uL Low 150-450 [facility] Comment on above: Performed By: #### C MP, 45808-3, 58698-8, CBCA, 5196-1 ####[facility] ([id number])[address] [address] RBC COUNT 4.47 X10E12/L Normal 3.80-5.20 [facility] Comment on above: Performed By: #### C MP, 26652-9, 38626-0, CBCA, 5196-1 ####[facility] ([id number])[address] [address] WBC (Bld) [#/Vol] 7.6 10*3/uL Normal 4.0-11.0 [facility] Comment on above: Performed By: #### C MP, 46266-7, 17608-7, CBCA, 5196-1 ####[facility] ([id number])[address], [place] [address] COMPREHENSIVE METABOLIC PANE Dick 09-12-2023 Albumin [Mass/Vol] 3.3 g/dL Normal 3.2-5.3 [facility] Comment on above: Performed By: #### C MP, 14264-6, 18759-4, CBCA, 5196-1 ####[facility] ([id number])[address], [place] [address] ALP [Catalytic activity/Vol] 69 U/L Normal 39-130 [facility] Comment on above: Performed By: #### C TORRI, 50666-6, 85740-8, CBCA, 5196-1 ####[facility] ([id number])[address], [place] [address] ALT [Catalytic activity/Vol] 79 U/L High 0-31 [facility] Comment on above: Performed By: #### C TORRI, 73905-1, 65562-4, CBCA, 5196-1 ####[facility] ([id number])[address], [place] [address] Anion gap [Moles/Vol] 8 mmol/L Normal 5-15 [facility] Comment on above: Performed By: #### C TORRI, 24915-5, 16164-6, CBCA, 5196-1 ####[facility] ([id number])[address], [place] [address] AST [Catalytic activity/Vol] 75 U/L High 0-41 [facility] Comment on above: Performed By: #### C MP, 48969-2, 21458-5, CBCA, 5196-1 ####[facility] ([id number])[address], [place] [address] Bilirubin [Mass/Vol] 3.4 mg/dL High 0.3-1.2 [facility] Comment on above: Performed By: #### C MP, 29344-6, 58696-1, CBCA, 5196-1 ####[facility] ([id number])[address] [address] [place] [address] Calcium [Mass/Vol] 8.3 mg/dL Low 8.5-10.5 [facility] Comment on above: Performed By: #### C TORRI, 63433-4, 66716-1, CBCA, 5196-1 ####[facility] ([id number])[address] [address] [place] [address] Chloride [Moles/Vol] 103 mmol/L Normal 98-109 [facility] Comment on above: Performed By: #### C TORRI, 25791-8, 52497-0, CBCA, 5196-1 ####[facility] ([id number])[address] [address] CO2 [Moles/Vol] 26 mmol/L Normal 22-32 [facility] Comment on above: Performed By: #### C TORRI, 78584-1, 78000-6, CBCA, 5196-1 ####[facility] ([id number])[address] [address] Creatinine [Mass/Vol] 0.52 mg/dL Normal 0.40-1.00 [facility] Comment on above: Result Comment: METH OD TRACEABLE TO IDMS STANDARD Performed By: #### C MP, 93831-0, 52657-1, CBCA, 5196-1 ####[facility] ([id number])[address] [address] eGFR (CKD-EPI) NON-RACE DEPENDENT >90 Normal >59 [facility] Comment on above: Result Comment: Reported eGFR is based on the CKD-EPI 2020 equation that does not use a race coefficient. Performed By: #### C MP, 69347-8, 24222-1, CBCA, 5196-1 ####[facility] ([id number])[address], [place] [address] Glucose [Mass/Vol] 205 mg/dL High 65-99 [facility] Comment on above: Performed By: #### C TORRI, 56290-0, 13728-3, CBCA, 5196-1 ####[facility] ([id number])[address], [place] [address] Potassium [Moles/Vol] 3.6 mmol/L Normal 3.5-5.0 [facility] Comment on above: Performed By: #### C TORRI, 26063-6, 77015-9, CBCA, 5196-1 ####[facility] ([id number])[address], [place] [address] Protein [Mass/Vol] 5.1 g/dL Low 6.0-8.0 [facility] Comment on above: Performed By: #### Peter WILD, 52707-4, 88155-4, CBCA, 5196-1 ####[facility] ([id number])[address], [place] [address] Sodium [Moles/Vol] 137 mmol/L Normal 134-146 [facility] Comment on above: Performed By: #### Peter WILD, 33512-7, 62632-5, CBCA, 5196-1 ####[facility] ([id number])[address], [place] [address] Urea nitrogen [Mass/Vol] 14 mg/dL Normal 5-27 [place] [facility] Comment on above: Performed By: #### C TORRI, 00986-5, 91462-0, CBCA, 5196-1 ####[facility] ([id number])[address], [address], [place] [address] Glucose Glucometer (BldC) [M ass/Vol]on 09-12-2023 Glucose [Mass/Vol] 181 mg/dL High 65-99 [facility] Glucose [Mass/Vol] 216 mg/dL High 65-99 [facility] Glucose [Mass/Vol] 200 mg/dL High 65-99 [facility] Glucose [Mass/Vol] 160 mg/dL High 65-99 [facility] HBV surface Ag IA Qlon 09-11 HEPATITIS B SURF AG Negative Normal NEG [facility] Comment on above: Performed By: #### [place], [address]-8, 57904-8, CBCA, 5196-1 ####[facility] ([id number])[address], [address] [place] [address] HCV Ab IA Qlon 09-12-2023 ANTI HCV W/PCR REFLX Non-Reactive Normal NRCT [facility] Comment on above: Result Comment: If recent infection suspected, recommend repeat testing (>2 months). Rtoslq-ro-zkalag ratio is <0.80. Performed By: #### 3 3-1 #### [facility] ([id number]) [address], [address] [place] [address] MAGNESIUMon 09-12-2023 Magnesium [Mass/Vol] 1.8 mg/dL Normal 1.8-2.6 [facility] Comment on above: Performed By: #### [place], [address]82[address]-4, 05337-5, CBCA, 5196-1 ####[facility] ([id number])[address], [address] [place] [address] AFP [Mass/Vol]on 09-11-2023 ALPHA FETOPROTEIN 2.4 ng/mL Normal 0-9.9 [facility] Comment on above: Performed By: #### 1 9123-9, 18349-3, CMP, CBCA, 91505-7, 3040- 3 #### [facility] ([id number]) [address], [address] [place] [address] Alpha 1 antitrypsin Nephelom etry [Mass/Vol]on 09-11-2023 ALPHA 1 ANTITRYPSIN 164 mg/dL Normal 83-199 [facility] Comment on above: Performed By: #### 1 9123-9, 18775-4, CMP, CBCA, 99182-4, 3040- 3 #### [facility] ([id number]) [address], [address] [place] [address] BILIRUBIN,DIRECTon 4 Bilirubin.direct [Mass/Vol] 4.0 mg/dL High 0.0-0.4 [facility] Comment on above: Performed By: #### 1 9123-9, 07947-5, CMP, CBCA, 05236-6, 3040- 3 #### [facility] ([id number]) [address], [address] [place] [address] CBC AND AUTO DIFFon 09-11-19 24 ABSOLUTE BASOPHIL 0.0 X10E9/L Normal 0.0-0.2 [facility] Comment on above: Performed By: #### 1 9123-9, 13688-8, CMP, CBCA, 67899-8, 3040- 3 #### [facility] ([id number]) [address], [address] [place] [address] ABSOLUTE NEUTROPHIL 11.2 X10E9/L High 1.5-6.6 [facility] Comment on above: Performed By: #### 1 9123-9, 41964-0, CMP, CBCA, 14105-2, 3040- 3 #### [facility] ([id number]) [address], [address] [place] [address] Basophils/100 WBC (Bld) 0.1 % Normal [facility] Comment on above: Performed By: #### 1 9123-9, 74302-2, CMP, CBCA, 90710-0, 3040- 3 #### [facility] ([id number]) [address] [address] [place] [address] Eosinophils (Bld) [#/Vol] 0.0 10*3/uL Normal 0.0-0.4 [facility] Comment on above: Performed By: #### 1 9123-9, 15386-9, CMP, CBCA, 94274-4, 3040- 3 #### [facility] ([id number]) [address] [address] [place] [address] Eosinophils/100 WBC (Bld) 0.2 % Normal [facility] Comment on above: Performed By: #### 1 9123-9, 52026-3, CMP, CBCA, 87165-6, 3040- 3 #### [facility] ([id number]) [address] [address] [place] [address] Erythrocyte distribution width (RBC) [Ratio] 13.8 % Normal 11.5-15.0 [facility] Comment on above: Performed By: #### 1 9123-9, 26274-6, CMP, CBCA, 18438-3, 3040- 3 #### [facility] ([id number]) [address] [address] [address] [place] [address] Hematocrit (Bld) [Volume fraction] 40.8 % Normal 35-47 [facility] Comment on above: Performed By: #### 1 9123-9, 85095-2, CMP, CBCA, 50020-6, 3040- 3 #### [facility] ([id number]) [address] [address] [place] [address] Hemoglobin (Bld) [Mass/Vol] 14.2 g/dL Normal 11.7-15.5 [facility] Comment on above: Performed By: #### 1 9123-9, 51856-6, CMP, CBCA, 40242-5, 3040- 3 #### [facility] ([id number]) [address], [address] [address] Lymphocytes (Bld) [#/Vol] 0.9 10*3/uL Low 1.0-3.5 [facility] Comment on above: Performed By: #### 1 9123-9, 85631-7, CMP, CBCA, 57862-7, 3040- 3 #### [facility] ([id number]) [address] [address] Lymphocytes/100 WBC (Bld) 7.0 % Normal [facility] Comment on above: Performed By: #### 1 9123-9, 18161-2, CMP, CBCA, 06659-0, 3040- 3 #### [facility] ([id number]) [address] [address] MCH (RBC) [Entitic mass] 29.8 pg Normal 27-34 [facility] Comment on above: Performed By: #### 1 9123-9, 87380-2, CMP, CBCA, 71090-6, 3040- 3 #### [facility] ([id number]) [address] [address] MCHC (RBC) [Mass/Vol] 34.8 g/dL Normal 32-36 [facility] Comment on above: Performed By: #### 1 9123-9, 54795-5, CMP, CBCA, 95236-4, 3040- 3 #### [facility] ([id number]) [address] [address] MCV (RBC) [Entitic vol] 86 fL Normal 80-100 [facility] Comment on above: Performed By: #### 1 9123-9, 95821-8, CMP, CBCA, 46475-7, 3040- 3 #### [facility] ([id number]) [address] [address] Monocytes (Bld) [#/Vol] 0.9 10*3/uL Normal 0-0.9 [facility] Comment on above: Performed By: #### 1 9123-9, 60753-0, CMP, CBCA, 45756-9, 3040- 3 #### [facility] ([id number]) [address], [address] [place] [address] Monocytes/100 WBC (Bld) 6.7 % Normal [facility] Comment on above: Performed By: #### 1 9123-9, 60911-9, CMP, CBCA, 93949-3, 3040- 3 #### [facility] ([id number]) [address], [address] [place] [address] Neutrophils/100 WBC (Bld) 86.0 % Normal [facility] Comment on above: Performed By: #### 1 9123-9, 36690-5, CMP, CBCA, 28056-5, 3040- 3 #### [facility] ([id number]) [address], [address] [place] [address] Platelet mean volume (Bld) [Entitic vol] 9.5 fL Normal 7-12 [facility] Comment on above: Performed By: #### 1 9123-9, 89659-8, CMP, CBCA, 83811-7, 3040- 3 #### [facility] ([id number]) [address], [address] [place] [address] Platelets (Bld) [#/Vol] 113 10*3/uL Low 150-450 [facility] Comment on above: Performed By: #### 1 9123-9, 21677-4, CMP, CBCA, 02854-4, 3040- 3 #### [facility] ([id number]) [address], [address] [place] [address] RBC COUNT 4.76 X10E12/L Normal 3.80-5.20 [facility] Comment on above: Performed By: #### 1 9123-9, 06308-6, CMP, CBCA, 37896-5, 3040- 3 #### [facility] ([id number]) [address], [address] [place] [address] WBC (Bld) [#/Vol] 13.0 10*3/uL High 4.0-11.0 [facility] Comment on above: Performed By: #### 1 9123-9, 57434-2, CMP, CBCA, 13150-3, 3040- 3 #### [facility] ([id number]) [address], [address] [place] [address] COMPREHENSIVE METABOLIC PANE Dick 09-11-2023 Albumin [Mass/Vol] 3.4 g/dL Normal 3.2-5.3 [facility] Comment on above: Performed By: #### 1 9123-9, 74774-2, CMP, CBCA, 88196-8, 3040- 3 #### [facility] ([id number]) [address], [address] [place] [address] ALP [Catalytic activity/Vol] 57 U/L Normal 39-130 [facility] Comment on above: Performed By: #### 1 9123-9, 73340-2, CMP, CBCA, 76427-1, 3040- 3 #### [facility] ([id number]) [address], [address] [place] [address] ALT [Catalytic activity/Vol] 79 U/L High 0-31 [facility] Comment on above: Performed By: #### 1 9123-9, 94771-9, CMP, CBCA, 61064-4, 3040- 3 #### [facility] ([id number]) [address], [address] [place] [address] Anion gap [Moles/Vol] 8 mmol/L Normal 5-[address] [facility] Comment on above: Performed By: #### 1 9123-9, 93043-4, CMP, CBCA, 72155-8, 3040- 3 #### [facility] ([id number]) [address], [address] [place] [address] AST [Catalytic activity/Vol] 95 U/L High 0-41 [facility] Comment on above: Performed By: #### 1 9123-9, 93782-3, CMP, CBCA, 24947-2, 3040- 3 #### [facility] ([id number]) [address], [address] [place] [address] Bilirubin [Mass/Vol] 6.7 mg/dL High 0.3-1.2 [facility] Comment on above: Performed By: #### 1 9123-9, 62804-6, CMP, CBCA, 21180-2, 3040- 3 #### [facility] ([id number]) [address], [address] [place] [address] Calcium [Mass/Vol] 8.4 mg/dL Low 8.5-10.5 [facility] Comment on above: Performed By: #### 1 9123-9, 43602-9, CMP, CBCA, 05488-7, 3040- 3 #### [facility] ([id number]) [address], [address] [place] [address] Chloride [Moles/Vol] 101 mmol/L Normal 98-109 [facility] Comment on above: Performed By: #### 1 9123-9, 89481-8, CMP, CBCA, 95209-7, 3040- 3 #### [facility] ([id number]) [address], [address] [place] [address] CO2 [Moles/Vol] 27 mmol/L Normal 22-32 [facility] Comment on above: Performed By: #### 1 9123-9, 00654-1, CMP, CBCA, 73846-9, 3040- 3 #### [facility] ([id number]) [address], [address] [place] [address] Creatinine [Mass/Vol] 0.59 mg/dL Normal 0.40-1.00 [facility] Comment on above: Result Comment: METH OD TRACEABLE TO IDMS STANDARD Performed By: #### 1 9123-9, 51065-5, CMP, CBCA, 57217-9, 3040-3 #### [facility] ([id number]) [address], [address] [place] [address] eGFR (CKD-EPI) NON-RACE DEPENDENT >90 Normal >59 [facility] Comment on above: Result Comment: Reported eGFR is based on the CKD-EPI 2020 equation that does not use a race coefficient. Performed By: #### 1 9123-9, 72443-0, CMP, CBCA, 55097-2, 3040-3 #### [facility] ([id number]) [address], [address] [place] [address] Glucose [Mass/Vol] 159 mg/dL High 65-99 [facility] Comment on above: Performed By: #### 1 9123-9, 11273-4, CMP, CBCA, 30486-6, 3040- 3 #### [facility] ([id number]) [address] [address] [place] [address] Potassium [Moles/Vol] 3.6 mmol/L Normal 3.5-5.0 [facility] Comment on above: Performed By: #### 1 9123-9, 04170-9, CMP, CBCA, 42357-9, 3040- 3 #### [facility] ([id number]) [address], [address] [place] [address] Protein [Mass/Vol] 5.1 g/dL Low 6.0-8.0 [facility] Comment on above: Performed By: #### 1 9123-9, 06125-7, CMP, CBCA, 46945-0, 3040- 3 #### [facility] ([id number]) [address], [address] [place] [address] Sodium [Moles/Vol] 136 mmol/L Normal 134-146 [facility] Comment on above: Performed By: #### 1 9123-9, 93709-1, CMP, CBCA, 75106-9, 3040- 3 #### [facility] ([id number]) [address], [address] [place] [address] Urea nitrogen [Mass/Vol] 17 mg/dL Normal 5-27 [facility] Comment on above: Performed By: #### 1 9123-9, 68117-3, CMP, CBCA, 87152-4, 3040- 3 #### [facility] ([id number]) [address], [address] [place] [address] FERRITINon 09-11-2023 Ferritin [Mass/Vol] 345 ng/mL High 11-307 [facility] Comment on above: Performed By: #### 1 9123-9, 64353-2, CMP, CBCA, 43320-7, 3040- 3 #### [facility] ([id number]) [address], [address] [place] [address] Glucose Glucometer (BldC) [M ass/Vol]on 09-11-2023 Glucose [Mass/Vol] 155 mg/dL High 65-99 [facility] IMMUNOGLOBULINSon 09-11-2023 IgA [Mass/Vol] 85 mg/dL Normal 68-378 [facility] Comment on above: Performed By: #### 1 9123-9, 78328-7, CMP, CBCA, 47189-1, 3040- 3 #### [facility] ([id number]) [address], [address] [place] [address] IgG [Mass/Vol] 480 mg/dL Low 635-1741 [facility] Comment on above: Performed By: #### 1 9123-9, 91513-7, CMP, CBCA, 60369-6, 3040- 3 #### [facility] ([id number]) [address], [address] [place] [address] IgM [Mass/Vol] 24 mg/dL Low 45-281 [facility] Comment on above: Performed By: #### 1 9123-9, 72116-7, CMP, CBCA, 05746-9, 3040- 3 #### [facility] ([id number]) [address], [address] [place] [address] IRON PROFILEon 09-11-2023 Iron [Mass/Vol] 21 ug/dL Low 50-170 [facility] Comment on above: Performed By: #### 1 9123-9, 98133-9, CMP, CBCA, 75335-5, 3040- 3 #### [facility] ([id number]) [address], [address] [place] [address] IRON BINDING 260 ug/dL Normal 250-425 [facility] Comment on above: Performed By: #### 1 9123-9, 15223-9, CMP, CBCA, 25961-0, 3040- 3 #### [facility] ([id number]) [address], [address] [place] [address] IRON SATURATION 8 % SATURATION Low 15-50 [facility] Comment on above: Performed By: #### 1 9123-9, 13133-1, CMP, CBCA, 58723-0, 3040- 3 #### [facility] ([id number]) [address], [address] [place] [address] LIPASEon 09-11-2023 Lipase [Catalytic activity/Vol] 31 U/L Normal 11-82 [facility] Comment on above: Performed By: #### 1 9123-9, 61407-2, CMP, CBCA, 22183-6, 3040- 3 #### [facility] ([id number]) [address], [address] [place] [address] MAGNESIUMon 09-11-2023 Magnesium [Mass/Vol] 2.0 mg/dL Normal 1.8-2.6 [facility] Comment on above: Performed By: #### 1 9123-9, 2823-3 ####[facility] ([id number])[address], [place] [address] Magnesium [Mass/Vol] 1.9 mg/dL Normal 1.8-2.6 [facility] Comment on above: Performed By: #### 1 9123-9, 83514-5, CMP, CBCA, 95977-9, 3040- 3 #### [facility] ([id number]) [address], [address] [place] [address] Mitochondria M2 Ab IA Qn (S) on 09-11-2023 Mitochondrial Ab (M2) <0.1 Normal <0.1 (Negative) [facility] Comment on above: Result Comment: NOTE Test Performed by: [place] [address] Executive Staff Assistant: Chevy Gonsalves M.D. Ph.D.; CLIA# [id number] Performed By: #### 6 771-0, IMGB, 19940-6, 2276-4, FEPR, 1834-1, PINR ####[facility] ([id number])[address], [address] [place] [address] Nuclear Ab IA Ql (S)on 09-10 MICHAEL Screen w/reflex Negative Normal NEG [facility] Comment on above: Result Comment: Testing performed using multiplex flow immunoassay. Eleven different antigens associated with systemic autoimmune diseases (dsDNA,Sm,Sm/PRESCHOOL PRINCIPAL,PRESCHOOL PRINCIPAL,Chromatin, SSA,SSB,Julieth-1,Scl70,Ribo P,Centromere B) are included in this screening test. Performed By: #### 1 9123-9, 48045-4, CMP, CBCA, 99410-9, 3040-3 #### [facility] ([id number]) [address], [address] [place] [address] POTASSIUMon 09-11-2023 Potassium [Moles/Vol] 4.1 mmol/L Normal 3.5-5.0 [facility] Comment on above: Performed By: #### 1 9123-9, 2823-3 ####[facility] ([id number])[address], [address] [address] PROTIME AND INRon 09-11-2023 INR Coag (PPP) [Relative time] 1.8 {INR} High 0.8-1.1 [facility] Comment on above: Performed By: #### 1 9123-9, 37878-6, CMP, CBCA, 67829-9, 3040- 3 #### [facility] ([id number]) [address], [address] [place] [address] PT Coag (PPP) [Time] 20.7 s High 9.8-13.2 [facility] Comment on above: Performed By: #### 1 9123-9, 55418-4, CMP, CBCA, 52507-7, 3040- 3 #### [facility] ([id number]) [address], [address] [place] [address] Smooth muscle Ab IF Ql (S)on 09-11-2023 Smooth Muscle Ab Negative Normal Negative [facility] Comment on above: Result Comment: NOTE Negative: No further testing will be performed ADDITIONAL INFORMATION This test was developed and its performance characteristics determined by [facility] in a manner consistent with CLIA requirements. This test has not been cleared or approved by the U.S. Food and Drug Administration. Test Performed by: [facility] [address] [place] [address] Executive Staff Assistant: Chevy Gonsalves M.D. Ph.D.; CLIA# [id number] Performed By: #### 6 771-0, IMGB, 44015-1, 2276-4, FEPR, 1834-1, PINR ####[facility] ([id number])[address], [address] [place] [address] tTG IgA IA Qn (S)on 09-11-19 24 TTG AB IGA <1.2 Normal <4.0 (Negative) [facility] Comment on above: Result Comment: NOTE Test Performed by: [facility] [address] [place] [address] Executive Staff Assistant: Chevy Gonsalves M.D. Ph.D.; CLIA# [id number] Performed By: #### 6 771-0, IMGB, 31471-9, 2276-4, FEPR, 1834-1, PINR ####[facility] ([id number])[address], [address] [place] [address] CBC AND AUTO DIFFon 09-10-19 24 Band form neutrophils/100 WBC (Bld) 5.0 % Normal [facility] Comment on above: Performed By: #### 1 9123-9, 61142-4, CMP, CBCA, 39062-0, 3040- 3 #### [facility] ([id number]) [address], [address] [place] [address] Erythrocyte distribution width (RBC) [Ratio] 13.2 % Normal 11.5-15.0 [facility] Comment on above: Performed By: #### 1 9123-9, 53164-3, CMP, CBCA, 14739-8, 3040- 3 #### [facility] ([id number]) [address], [address] [place] [address] Hematocrit (Bld) [Volume fraction] 45.1 % Normal 35-47 [facility] Comment on above: Performed By: #### 1 9123-9, 07300-1, CMP, CBCA, 48390-7, 3040- 3 #### [facility] ([id number]) [address], [address] [place] [address] Hemoglobin (Bld) [Mass/Vol] 15.7 g/dL High 11.7-15.5 [facility] Comment on above: Performed By: #### 1 9123-9, 12051-3, CMP, CBCA, 35310-5, 3040- 3 #### [facility] ([id number]) [address], [address] [place] [address] Lymphocytes (Bld) [#/Vol] 0.7 10*3/uL Low 1.0-3.5 [facility] Comment on above: Performed By: #### 1 9123-9, 90490-6, CMP, CBCA, 15358-5, 3040- 3 #### [facility] ([id number]) [address], [address] [place] [address] Lymphocytes/100 WBC (Bld) 3.0 % Normal [facility] Comment on above: Performed By: #### 1 9123-9, 93046-1, CMP, CBCA, 89534-7, 3040- 3 #### [facility] ([id number]) [address], [address] [place] [address] MCH (RBC) [Entitic mass] 29.5 pg Normal 27-34 [facility] Comment on above: Performed By: #### 1 9123-9, 53260-4, CMP, CBCA, 12131-2, 3040- 3 #### [facility] ([id number]) [address], [address] [place] [address] MCHC (RBC) [Mass/Vol] 34.8 g/dL Normal 32-36 [facility] Comment on above: Performed By: #### 1 9123-9, 95162-0, CMP, CBCA, 77934-4, 3040- 3 #### [facility] ([id number]) [address], [address] [place] [address] MCV (RBC) [Entitic vol] 85 fL Normal 80-100 [facility] Comment on above: Performed By: #### 1 9123-9, 57728-6, CMP, CBCA, 21318-9, 3040- 3 #### [facility] ([id number]) [address], [address] [place] [address] Monocytes (Bld) [#/Vol] 1.9 10*3/uL High 0-0.9 [facility] Comment on above: Performed By: #### 1 9123-9, 59809-2, CMP, CBCA, 11864-8, 3040- 3 #### [facility] ([id number]) [address], [address] [place] [address] Monocytes/100 WBC (Bld) 8.0 % Normal [facility] Comment on above: Performed By: #### 1 9123-9, 79518-2, CMP, CBCA, 73110-6, 3040- 3 #### [facility] ([id number]) [address], [address] [place] [address] Neutrophils (Bld) [#/Vol] 20.6 10*3/uL High 1.5-6.6 [facility] Comment on above: Performed By: #### 1 9123-9, 02021-6, CMP, CBCA, 73739-5, 3040- 3 #### [facility] ([id number]) [address] [place] [address] Platelet mean volume (Bld) [Entitic vol] 9.1 fL Normal 7-12 [facility] Comment on above: Performed By: #### 1 9123-9, 11338-3, CMP, CBCA, 46827-3, 3040- 3 #### [facility] ([id number]) [address], [address] [place] [address] Platelets (Bld) [#/Vol] 136 10*3/uL Low 150-450 [facility] Comment on above: Performed By: #### 1 9123-9, 16850-2, CMP, CBCA, 63798-8, 3040- 3 #### [facility] ([id number]) [address], [facility] [address] [place] [address] RBC COUNT 5.34 X10E12/L High 3.80-5.20 [facility] Comment on above: Performed By: #### 1 9123-9, 69906-9, CMP, CBCA, 72218-9, 3040- 3 #### [facility] ([id number]) [address], [address] [place] [address] RBC morphology finding Nom (Bld) NORMAL Normal [facility] Comment on above: Performed By: #### 1 9123-9, 83020-9, CMP, CBCA, 15965-9, 3040- 3 #### [facility] ([id number]) [address], [facility] [address] [place] [address] SEG NEUTROPHIL 84.0 % Normal [facility] Comment on above: Performed By: #### 1 9123-9, 75371-9, CMP, CBCA, 92903-9, 3040- 3 #### [facility] ([id number]) [address], [address] [place] [address] WBC (Bld) [#/Vol] 23.2 10*3/uL High 4.0-11.0 [facility] Comment on above: Performed By: #### 1 9123-9, 47027-4, CMP, CBCA, 53881-6, 3040- 3 #### [facility] ([id number]) [address], [address] [place] [address] COMPREHENSIVE METABOLIC PANE Dick 09-10-2023 Albumin [Mass/Vol] 4.0 g/dL Normal 3.2-5.3 [facility] Comment on above: Performed By: #### 1 9123-9, 99649-0, CMP, CBCA, 90716-0, 3040- 3 #### [facility] ([id number]) [address], [address] [place] [address] ALP [Catalytic activity/Vol] 70 U/L Normal 39-130 [facility] Comment on above: Performed By: #### 1 9123-9, 05723-6, CMP, CBCA, 78531-6, 3040- 3 #### [facility] ([id number]) [address], [address] [place] [address] ALT [Catalytic activity/Vol] 41 U/L High 0-31 [facility] Comment on above: Performed By: #### 1 9123-9, 47243-9, CMP, CBCA, 45657-0, 3040- 3 #### [facility] ([id number]) [address], [address] [place] [address] Anion gap [Moles/Vol] 12 mmol/L Normal 5-15 [facility] Comment on above: Performed By: #### 1 9123-9, 20834-4, CMP, CBCA, 38846-5, 3040- 3 #### [facility] ([id number]) [address], [address] [place] [address] AST [Catalytic activity/Vol] 70 U/L High 0-41 [facility] Comment on above: Performed By: #### 1 9123-9, 93815-1, CMP, CBCA, 27300-2, 3040- 3 #### [facility] ([id number]) [address], [address] [place] [address] Bilirubin [Mass/Vol] 4.9 mg/dL High 0.3-1.2 [facility] Comment on above: Performed By: #### 1 9123-9, 18672-5, CMP, CBCA, 27210-1, 3040- 3 #### [facility] ([id number]) [address], [address] [place] [address] Calcium [Mass/Vol] 8.3 mg/dL Low 8.5-10.5 [facility] Comment on above: Performed By: #### 1 9123-9, 92768-3, CMP, CBCA, 33811-4, 3040- 3 #### [facility] ([id number]) [address], [address] [place] [address] Chloride [Moles/Vol] 100 mmol/L Normal 98-109 [facility] Comment on above: Performed By: #### 1 9123-9, 64972-5, CMP, CBCA, 22682-5, 3040- 3 #### [facility] ([id number]) [address], [address] [place] [address] CO2 [Moles/Vol] 22 mmol/L Normal 22-32 [facility] Comment on above: Performed By: #### 1 9123-9, 79269-4, CMP, CBCA, 50140-2, 3040- 3 #### [facility] ([id number]) [address], [address] [place] [address] Creatinine [Mass/Vol] 0.50 mg/dL Normal 0.40-1.00 [facility] Comment on above: Result Comment: METH OD TRACEABLE TO IDMS STANDARD Performed By: #### 1 9123-9, 12745-6, CMP, CBCA, 96243-6, 3040-3 #### [facility] ([id number]) [address], [address] [place] [address] eGFR (CKD-EPI) NON-RACE DEPENDENT >90 Normal >59 [facility] Comment on above: Result Comment: Reported eGFR is based on the CKD-EPI 2020 equation that does not use a race coefficient. Performed By: #### 1 9123-9, 87623-8, CMP, CBCA, 20196-7, 3040-3 #### [facility] ([id number]) [address], [address] [place] [address] Glucose [Mass/Vol] 195 mg/dL High 65-99 [facility] Comment on above: Performed By: #### 1 9123-9, 27934-4, CMP, CBCA, 93486-0, 3040- 3 #### [facility] ([id number]) [address], [address] [place] [address] Potassium [Moles/Vol] 4.0 mmol/L Normal 3.5-5.0 [facility] Comment on above: Performed By: #### 1 9123-9, 31169-8, CMP, CBCA, 08462-4, 3040- 3 #### [facility] ([id number]) [address], [address] [place] [address] Protein [Mass/Vol] 5.9 g/dL Low 6.0-8.0 [facility] Comment on above: Performed By: #### 1 9123-9, 35909-5, CMP, CBCA, 51462-6, 3040- 3 #### [facility] ([id number]) [address], [address] [place] [address] Sodium [Moles/Vol] 134 mmol/L Normal 134-146 [facility] Comment on above: Performed By: #### 1 9123-9, 24396-2, CMP, CBCA, 55557-3, 3040- 3 #### [facility] ([id number]) [address], [address] [place] [address] Urea nitrogen [Mass/Vol] 13 mg/dL Normal 5-27 [facility] Comment on above: Performed By: #### 1 9123-9, 95542-7, CMP, CBCA, 82578-0, 3040- 3 #### [facility] ([id number]) [address], [address] [place] [address] Gastrin [Mass/Vol]on 024 GASTRIN 30.8 pg/mL Normal <115.0 [facility] Comment on above: Result Comment: NOTE The Gastrin test was performed using the Siemens Immulite chemiluminescent immunometric method. Results obtained with different assay methods or kits cannot be used interchangeably. Test Performed By: [place] [address] Utilization Engineer: Gualberto Prakash III, M.D. [facility] #[id number] Glucose Glucometer ([facility]) [M ass/Vol]on 09-10-2023 Glucose [Mass/Vol] 177 mg/dL High 65-99 [facility] Glucose [Mass/Vol] 204 mg/dL High 65-99 [facility] Glucose [Mass/Vol] 185 mg/dL High 65-99 [facility] Glucose [Mass/Vol] 184 mg/dL High 65-99 [facility] MAGNESIUMon 09-10-2023 Magnesium [Mass/Vol] 2.1 mg/dL Normal 1.8-2.6 [facility] Comment on above: Performed By: #### 1 9123-9, 13361-1, CMP, CBCA, 67927-1, 3040- 3 #### [facility] ([id number]) [address], [address] [place] [address] Magnesium [Mass/Vol] 2.0 mg/dL Normal 1.8-2.6 [facility] Comment on above: Performed By: #### 1 9123-9, 43843-1, CMP, CBCA, 92883-5, 3040- 3 #### [facility] ([id number]) [address], [address] [place] [address] POTASSIUMon 09-10-2023 Potassium [Moles/Vol] 3.7 mmol/L Normal 3.5-5.0 [facility] Comment on above: Performed By: #### 1 9123-9, 08632-1, CMP, CBCA, 63522-2, 3040- 3 #### [facility] ([id number]) [address], [address] [place] [address] CBC AND AUTO DIFFon 09-09-19 ABSOLUTE BASOPHIL 0.2 X10E9/L Normal 0.0-0.2 [facility] Comment on above: Performed By: #### 1 9123-9, 60577-9, CMP, CBCA, 30605-6, 3040- 3 #### [facility] ([id number]) [address], [address] [place] [address] ABSOLUTE NEUTROPHIL 12.2 X10E9/L High 1.5-6.6 [facility] Comment on above: Performed By: #### 1 9123-9, 04391-1, CMP, CBCA, 10336-1, 3040- 3 #### [facility] ([id number]) [address], [address] [place] [address] Basophils/100 WBC (Bld) 1.1 % Normal [facility] Comment on above: Performed By: #### 1 9123-9, 11576-0, CMP, CBCA, 56830-9, 3040- 3 #### [facility] ([id number]) [address], [address] [place] [address] Eosinophils (Bld) [#/Vol] 0.0 10*3/uL Normal 0.0-0.4 [facility] Comment on above: Performed By: #### 1 9123-9, 25213-1, CMP, CBCA, 11994-9, 3040- 3 #### [facility] ([id number]) [address], [address] [place] [address] Eosinophils/100 WBC (Bld) 0.1 % Normal [facility] Comment on above: Performed By: #### 1 9123-9, 30330-5, CMP, CBCA, 38354-5, 3040- 3 #### [facility] ([id number]) [address] [address] [place] [address] Erythrocyte distribution width (RBC) [Ratio] 13.0 % Normal 11.5-15.0 [facility] Comment on above: Performed By: #### 1 9123-9, 94332-1, CMP, CBCA, 54430-3, 3040- 3 #### [facility] ([id number]) [address] [address] Hematocrit (Bld) [Volume fraction] 45.6 % Normal 35-47 [facility] Comment on above: Performed By: #### 1 9123-9, 37691-7, CMP, CBCA, 87287-4, 3040- 3 #### [facility] ([id number]) [address] [address] [place] [address] Hemoglobin (Bld) [Mass/Vol] 15.9 g/dL High 11.7-15.5 [facility] Comment on above: Performed By: #### 1 9123-9, 39005-8, CMP, CBCA, 80364-5, 3040- 3 #### [facility] ([id number]) [address] [address] [place] [address] Lymphocytes (Bld) [#/Vol] 2.2 10*3/uL Normal 1.0-3.5 [facility] Comment on above: Performed By: #### 1 9123-9, 76472-9, CMP, CBCA, 54802-1, 3040- 3 #### [facility] ([id number]) [address] [place] [address] Lymphocytes/100 WBC (Bld) 14.2 % Normal [facility] Comment on above: Performed By: #### 1 9123-9, 25668-6, CMP, CBCA, 17431-2, 3040- 3 #### [facility] ([id number]) [address], [address] [place] [address] MCH (RBC) [Entitic mass] 29.4 pg Normal 27-34 [facility] Comment on above: Performed By: #### 1 9123-9, 27704-5, CMP, CBCA, 22883-0, 3040- 3 #### [facility] ([id number]) [address], [address] [place] [address] MCHC (RBC) [Mass/Vol] 34.9 g/dL Normal 32-36 [facility] Comment on above: Performed By: #### 1 9123-9, 16781-7, CMP, CBCA, 20398-3, 3040- 3 #### [facility] ([id number]) [address], [address] [place] [address] MCV (RBC) [Entitic vol] 84 fL Normal 80-100 [facility] Comment on above: Performed By: #### 1 9123-9, 00810-3, CMP, CBCA, 30462-9, 3040- 3 #### [facility] ([id number]) [address], [address] [place] [address] Monocytes (Bld) [#/Vol] 0.9 10*3/uL Normal 0-0.9 [facility] Comment on above: Performed By: #### 1 9123-9, 30870-8, CMP, CBCA, 65171-1, 3040- 3 #### [facility] ([id number]) [address], [address] [place] [address] Monocytes/100 WBC (Bld) 6.0 % Normal [facility] Comment on above: Performed By: #### 1 9123-9, 21695-2, CMP, CBCA, 68476-7, 3040- 3 #### [facility] ([id number]) [address], [facility] [address] [place] [address] Neutrophils/100 WBC (Bld) 78.6 % Normal [facility] Comment on above: Performed By: #### 1 9123-9, 61016-3, CMP, CBCA, 14341-9, 3040- 3 #### [facility] ([id number]) [address], [facility] [address] [place] [address] Platelet mean volume (Bld) [Entitic vol] 8.9 fL Normal 7-12 [facility] Comment on above: Performed By: #### 1 9123-9, 78269-4, CMP, CBCA, 24080-3, 3040- 3 #### [facility] ([id number]) [address], [facility] [address] [place] [address] Platelets (Bld) [#/Vol] 147 10*3/uL Low 150-450 [facility] Comment on above: Performed By: #### 1 9123-9, 40031-8, CMP, CBCA, 23723-9, 3040- 3 #### [facility] ([id number]) [address] [address] [address] [place] [address] RBC COUNT 5.43 X10E12/L High 3.80-5.20 [facility] Comment on above: Performed By: #### 1 9123-9, 42853-1, CMP, CBCA, 58220-6, 3040- 3 #### [facility] ([id number]) [address] [address] [address] [place] [address] WBC (Bld) [#/Vol] 15.5 10*3/uL High 4.0-11.0 [facility] Comment on above: Performed By: #### 1 9123-9, 37956-2, CMP, CBCA, 03287-7, 3040- 3 #### [facility] ([id number]) [address], [address] [place] [address] COMPREHENSIVE METABOLIC PANE Dick 09-09-2023 Albumin [Mass/Vol] 4.1 g/dL Normal 3.2-5.3 [facility] Comment on above: Performed By: #### 1 9123-9, 47272-1, CMP, CBCA, 26462-3, 3040- 3 #### [facility] ([id number]) [address], [address] [place] [address] ALP [Catalytic activity/Vol] 68 U/L Normal 39-130 [facility] Comment on above: Performed By: #### 1 9123-9, 91453-4, CMP, CBCA, 22867-9, 3040- 3 #### [facility] ([id number]) [address], [address] [place] [address] ALT [Catalytic activity/Vol] 9 U/L Normal 0-31 [facility] Comment on above: Performed By: #### 1 9123-9, 73012-9, CMP, CBCA, 82041-2, 3040- 3 #### [facility] ([id number]) [address], [address] [place] [address] Anion gap [Moles/Vol] 15 mmol/L Normal 5-15 [facility] Comment on above: Performed By: #### 1 9123-9, 61778-5, CMP, CBCA, 26130-8, 3040- 3 #### [facility] ([id number]) [address], [address] [place] [address] AST [Catalytic activity/Vol] 18 U/L Normal 0-41 [facility] Comment on above: Performed By: #### 1 9123-9, 78874-4, CMP, CBCA, 92043-6, 3040- 3 #### [facility] ([id number]) [address], [address] [place] [address] Bilirubin [Mass/Vol] 1.6 mg/dL High 0.3-1.2 [facility] Comment on above: Performed By: #### 1 9123-9, 88701-5, CMP, CBCA, 40442-2, 3040- 3 #### [facility] ([id number]) [address], [address] [place] [address] Calcium [Mass/Vol] 8.7 mg/dL Normal 8.5-10.5 [facility] Comment on above: Performed By: #### 1 9123-9, 36287-7, CMP, CBCA, 53483-7, 3040- 3 #### [facility] ([id number]) [address], [address] [place] [address] Chloride [Moles/Vol] 101 mmol/L Normal 98-109 [facility] Comment on above: Performed By: #### 1 9123-9, 35566-0, CMP, CBCA, 07627-3, 3040- 3 #### [facility] ([id number]) [address], [address] [place] [address] CO2 [Moles/Vol] 21 mmol/L Low 22-32 [facility] Comment on above: Performed By: #### 1 9123-9, 66120-4, CMP, CBCA, 29497-5, 3040- 3 #### [facility] ([id number]) [address], [address] [place] [address] Creatinine [Mass/Vol] 0.53 mg/dL Normal 0.40-1.00 [facility] Comment on above: Result Comment: METH OD TRACEABLE TO IDMS STANDARD Performed By: #### 1 9123-9, 69714-8, CMP, CBCA, 01717-5, 3040-3 #### [facility] ([id number]) [address], [address] [place] [address] eGFR (CKD-EPI) NON-RACE DEPENDENT >90 Normal >59 [facility] Comment on above: Result Comment: Reported eGFR is based on the CKD-EPI 2020 equation that does not use a race coefficient. Performed By: #### 1 9123-9, 86078-8, CMP, CBCA, 38694-0, 3040-3 #### [facility] ([id number]) [address], [address] [place] [address] Glucose [Mass/Vol] 167 mg/dL High 65-99 [facility] Comment on above: Performed By: #### 1 9123-9, 01357-3, CMP, CBCA, 30424-9, 3040- 3 #### [facility] ([id number]) [address], [address] [place] [address] Potassium [Moles/Vol] 3.0 mmol/L Low 3.5-5.0 [facility] Comment on above: Performed By: #### 1 9123-9, 18908-3, CMP, CBCA, 13304-6, 3040- 3 #### [facility] ([id number]) [address], [address] [place] [address] Protein [Mass/Vol] 6.2 g/dL Normal 6.0-8.0 [facility] Comment on above: Performed By: #### 1 9123-9, 86837-0, CMP, CBCA, 81189-1, 3040- 3 #### [facility] ([id number]) [address] [address] [place] [address] Sodium [Moles/Vol] 137 mmol/L Normal 134-146 [facility] Comment on above: Performed By: #### 1 9123-9, 15976-5, CMP, CBCA, 44478-4, 3040- 3 #### [facility] ([id number]) [address] [place] [address] Urea nitrogen [Mass/Vol] 14 mg/dL Normal 5-27 [facility] Comment on above: Performed By: #### 1 9123-9, 26760-4, CMP, CBCA, 27248-1, 3040- 3 #### [facility] ([id number]) [address] [place] [address] CT ABDOMEN AND PELVIS W CONT on 09-09-2023 CT ABDOMEN AND PELVIS W CONT CT ABDOMEN AND PELVIS W CONT CLINICAL INFORMATION: Abdominal pain, post-op; severe L flank pain, epigastric pain. S/p ERCP today. Please check for complications of procedure. COMPARISON: 09/28/22. PROCEDURE: Routine CT abdomen and pelvis obtained after the uncomplicated intravenous administration of contrast material. Multiplanar reformats obtained from the axial data. All CT scans at this facility use dose modulation, iterative reconstruction, and/or weight based dosing when appropriate to reduce radiation dose to as low as reasonably achievable. FINDINGS: Cirrhotic liver. Pneumobilia. Mild biliary prominence. The gallbladder is hydropic with intraluminal contrast or layering sludge. The common bile duct measures 8 mm. Spleen is normal. No pancreatic abnormality, pancreatic duct is slightly prominent. Adrenal glands unchanged. Nonspecific mild perinephric stranding. Low-attenuation areas in the kidneys that are too small to characterize, there may be a small calculus in the lower pole right kidney measuring 2 mm. Bladder is decompressed. Colonic diverticulosis. Underdistention of the colon. The appendix is normal. Some mild wall thickening present in the distal esophagus. Extensive wall thickening in the duodenum with minimal adjacent stranding in the right upper quadrant. There are some hyperattenuating foci which could relate to clips or postprocedural changes. No small bowel obstruction. Severe atherosclerotic calcifications noted in the aorta which is ectatic. No enlarged lymph nodes. Trace free fluid. Degenerative changes. Mild anterolisthesis of L4 on L5. IMPRESSION: * Intrahepatic and extrahepatic biliary prominence as well as slight prominence of pancreatic duct without pancreatitis. Patient has a history of recent ERCP. * There are some inflammatory changes in the right upper quadrant with thickening of the duodenum which could relate to recent intervention although other infectious or inflammatory etiologies are considered given the history of ulcers on ERCP. * Hydropic gallbladder with liver cirrhosis and imaging findings of portal hypertension. * Please see above for further details. Finalized by Jason Gonsalves MD on 09/09/2023 5:12 PM Normal [facility] [place] ERCP BILIARY DUCTon 09-08 [place] ERCP BILIARY DUCT [place] ERCP BILIARY YAMILETH T CLINICAL INFORMATION: FLUORO IN ENDO#6 IMPRESSION: * Intraoperative fluoroscopy provided. The reference air kerma was 22.87 mGy. Finalized by Jason Gonsalves MD on 09/09/2023 12:24 PM Normal [facility] Glucose Glucometer (BldC) [M ass/Vol]on 09-09-2023 Glucose [Mass/Vol] 172 mg/dL High 65-99 [facility] Glucose [Mass/Vol] 158 mg/dL High 65-99 [facility] Glucose [Mass/Vol] 121 mg/dL High 65-99 [facility] HBV surface Ab IA Qnon 09-08 Anti HBs quant. <8.00 Normal [facility] Comment on above: Result Comment: Vacc inated: >=12mIU/mL, Positive (Immune) Unvaccinated: <8mIU/mL, Negative (Not Immune) 8-11.99 mIU/mL: Indeterminate, (Considered Not Immune) Performed By: #### 1 9123-9, 75314-0, CMP, CBCA, 46561-2, 3040-3 #### [facility] ([id number]) [address] [place] [address] HEMOGLOBINon 09-09-2023 Hemoglobin (Bld) [Mass/Vol] 15.9 g/dL High 11.7-15.5 [facility] Comment on above: Performed By: #### 1 9123-9, 86564-8, CMP, CBCA, 97438-0, 3040- 3 #### [facility] ([id number]) [address] [place] [address] LIPASEon 09-09-2023 Lipase [Catalytic activity/Vol] 56 U/L Normal 11-82 [facility] Comment on above: Performed By: #### 1 9123-9, 27052-7, CMP, CBCA, 41749-2, 3040- 3 #### [facility] ([id number]) [address] [place] [address] MAGNESIUMon 09-09-2023 Magnesium [Mass/Vol] 1.6 mg/dL Low 1.8-2.6 [facility] Comment on above: Performed By: #### 1 9123-9, 56395-5, CMP, CBCA, 26299-3, 3040- 3 #### [facility] ([id number]) [address] [place] [address] MR BRAIN WO CONTon MR BRAIN WO CONT MR BRAIN WO CONT MR BRAIN WO CONT 09/09/2023 5:01 PM INDICATION: Neuro deficit, acute, stroke suspected COMPARISON: None TECHNIQUE: Multiplanar multisequence MR images of the brain were obtained without intravenous contrast. FINDINGS: Examination is limited due to patient motion. BRAIN: Moderate nonspecific areas of subcortical and deep white matter increased FLAIR signal, favored to be due to chronic small vessel skin change. Area of encephalomalacia with surrounding FLAIR signal of right posterior cheung radiata, likely remote insult. T2 bright areas within the left cerebellar hemisphere, likely remote lacunar infarcts. Areas of subcortical and juxtacortical increased FLAIR signal within the perirolandic and high posterior parietal regions, as well as the posterior right occipital region. No definite areas of diffusion restriction. Focus of increased diffusion signal within the left periventricular white matter without definite low ADC correlate, favored to represent T2 shine through. No acute intracranial hemorrhage. No mass lesion. VENTRICLES: Normal ventricular size. VASCULATURE: Major arterial and venous intracranial flow voids are present. ORBITS: Unremarkable. PARANASAL SINUSES: Moderate paranasal sinus mucosal thickening. Dictated opacification of right maxillary sinus and left frontal sinus. TEMPORAL BONE: Well-aerated middle ears and visualized mastoid air cells. SOFT TISSUES: Likely mucous retention cyst or Tornwaldt cyst within the posterior pharyngeal midline soft tissues. OSSEOUS STRUCTURES: Normal bone marrow signal. IMPRESSION: 1. Subcortical and juxtacortical increased FLAIR signal predominantly within the high posterior parietal lobes, which may be seen in posterior reversible encephalopathy syndrome (PRES). 2. No definite acute stroke. Chronic ischemic changes as described. Finalized by Juana Saavedra DO on 09/09/2023 5:55 PM Normal [facility] POTASSIUMon 09-09-2023 Potassium [Moles/Vol] 2.8 mmol/L Low 3.5-5.0 [facility] Comment on above: Performed By: #### 1 9123-9, 13445-0, CMP, CBCA, 24312-6, 3040- 3 #### [facility] ([id number]) [address] [place] [address] Potassium [Moles/Vol] 3.3 mmol/L Low 3.5-5.0 [facility] Comment on above: Performed By: #### 1 9123-9, 57455-1, CMP, CBCA, 66373-8, 3040- 3 #### [facility] ([id number]) [address], [address] [place] [address] RAPID CARDIAC W/ NAon 2023 OLIVIA'S TEST Normal [facility] Comment on above: Performed By: #### 1 9123-9, 12524-5, CMP, CBCA, 26931-5, 3040- 3 #### [facility] ([id number]) [address], [address] [place] [address] BASE,DEFICIT 3.8 MMOL/L High 0.0-2.0 [facility] Comment on above: Performed By: #### 1 9123-9, 54229-4, CMP, CBCA, 91357-3, 3040- 3 #### [facility] ([id number]) [address] [place] [address] Body temperature 98.6 [degF] Normal 37.0 [facility] Comment on above: Performed By: #### 1 9123-9, 87089-2, CMP, CBCA, 42789-3, 3040- 3 #### [facility] ([id number]) [address] [place] [address] Glucose [Mass/Vol] 188 mg/dL High 65-99 [facility] Comment on above: Performed By: #### 1 9123-9, 52695-0, CMP, CBCA, 02592-9, 3040- 3 #### [facility] ([id number]) [address] [address] [place] [address] HCO3 (Bld) [Moles/Vol] 21.0 mmol/L Low 22-26 [facility] Comment on above: Performed By: #### 1 9123-9, 42159-7, CMP, CBCA, 99726-4, 3040- 3 #### [facility] ([id number]) [address] [place] [address] Hematocrit (Bld) [Volume fraction] 45 % Normal 35-47 [facility] Comment on above: Performed By: #### 1 9123-9, 56854-1, CMP, CBCA, 18181-1, 3040- 3 #### [facility] ([id number]) [address] [place] [address] Hemoglobin (Bld) [Mass/Vol] 14.6 g/dL Normal 11.7-15.5 [facility] Comment on above: Performed By: #### 1 9123-9, 13323-1, CMP, CBCA, 79538-6, 3040- 3 #### [facility] ([id number]) [address] [place] [address] INSP. O2 CONC. 21 % Normal [facility] Comment on above: Performed By: #### 1 9123-9, 76644-8, CMP, CBCA, 59962-7, 3040- 3 #### [facility] ([id number]) [address], [address] [place] [address] IONIZED CALCIUM 4.6 mg/dL Normal 4.5-5.3 [facility] Comment on above: Performed By: #### 1 9123-9, 78884-7, CMP, CBCA, 73160-0, 3040- 3 #### [facility] ([id number]) [address], [address] [place] [address] Oxygen (Bld) [Partial pressure] 113 mm[Hg] High 80-100 [facility] Comment on above: Performed By: #### 1 9123-9, 82316-6, CMP, CBCA, 62596-1, 3040- 3 #### [facility] ([id number]) [address], [address] [place] [address] Oxygen saturation in Blood 97.2 % Normal >90 [facility] Comment on above: Performed By: #### 1 9123-9, 56485-1, CMP, CBCA, 40630-1, 3040- 3 #### [facility] ([id number]) [address] [address] [place] [address] PCO2 34.2 MMHG Low 35-45 [facility] Comment on above: Performed By: #### 1 9123-9, 14756-9, CMP, CBCA, 11732-0, 3040- 3 #### [facility] ([id number]) [address] [address] [place] [address] pH (Bld) 7.396 [pH] Normal 7.350-7.450 [facility] Comment on above: Performed By: #### 1 9123-9, 70741-8, CMP, CBCA, 73055-0, 3040- 3 #### [facility] ([id number]) [address] [place] [address] Potassium [Moles/Vol] 3.2 mmol/L Low 3.5-5.[address] [facility] Comment on above: Performed By: #### 1 9123-9, 26499-6, CMP, CBCA, 08642-2, 3040- 3 #### [facility] ([id number]) [address], [facility] [address] [place] [address] SAMPLE SITE MANNY [facility] Comment on above: Performed By: #### 1 9123-9, 43723-6, CMP, CBCA, 09266-9, 3040- 3 #### [facility] ([id number]) [address], [address] [address] SAMPLE TYPE Arterial [facility] Comment on above: Performed By: #### 1 9123-9, 95332-1, CMP, CBCA, 33642-1, 3040- 3 #### [facility] ([id number]) [address], [address] [address] Sodium [Moles/Vol] 136 mmol/L Normal 134-146 [facility] Comment on above: Performed By: #### 1 9123-9, 57963-8, CMP, CBCA, 84282-4, 3040- 3 #### [facility] ([id number]) [address], [address] [address] Surgical Pathologyon 024 Surgical Pathology Normal [facility] Comment on above: Result Comment: [facility] [address] [place] [address] Surgical Pathology Consultation Patient Name:PENNY ABDIOB:1960 (Age: 63)Gender:FTaken:4Reported:4Physician(s):Sophia Khalil MD ( )Copy To: Rec. #:[id number]: #[id number] Final Pathologic Diagnosis Gastric biopsy: Mild chronic gastritis. Negative for helicobacter organisms on routine H&E examination. Negative for dysplasia or malignancy. Report Electronically Signed Out st09/12/2023Chasity Brown MD Interpretation performed at [facility], [address] [place] [address], License number: [id number]. Clinical History Acute cholangitis. Gross Description Received in formalin labeled JIN, gastric biopsy are 3 cunningham soft tissue bits, 0.1 cm to 0.2 cm. The specimen is filtered and submitted entirely in a single cassette. (1, ns, [id number], m8) . /09/10/2023WA Specimen(s) Received Gastric biopsy Fee Codes(s): 1; [address] Surgical Pathology Normal [facility] Comment on above: Result Comment: [facility] [address] [place] [address] Surgical Pathology Consultation Patient Name:ANJELICA ABDINEDOB:1960 (Age: 63)Gender:FTaken:4Reported:4Physician(s):Fish Cortes MD ([phone])Copy To: Rec. #:[id number]: #[id number] Final Pathologic Diagnosis Gallbladder: Chronic cholecystitis. Negative for dysplasia or malignancy. Report Electronically Signed Out st09/12/2023Chasity Brown MD Interpretation performed at [facility], [address] [place], [address], License number: [id number]. Clinical History Acute cholecystitis. Gross Description Received in formalin labeled JIN, gallbladder is an intact gallbladder that measures, 14.4 x 3.2 x 2.9 cm with a cystic duct of 0.4 cm. No lymph node is identified adjacent to the cystic duct. The serosal surface is cunningham to purple-mena with an area of cunningham to purple-mena granular soft tissue consistent with hepatic bed. The gallbladder is opened and filled with green viscous bile. No calculus is identified within the lumen. The mucosa is cunningham-brown and velvety. The gallbladder wall is 0.2 cm in thickness. Dress Fitter cross-sections are submitted within a single cassette. (1, ss, [id number],m1) DM. dm/09/10/2023GP Specimen(s) Received Gallbladder Fee Codes(s): 1; 05228 TROPONIN Ion 09-09-2023 Troponin I.cardiac [Mass/Vol] 0.11 ng/mL High 0.00-0.04 [facility] Comment on above: Result Comment: Concentrations greater than or equal to 0.05 ng/ml are considered elevated. Elevations of Troponin may be due to causes other than myocardial ischemia. Recommend serial Troponin testing be performed. Performed By: #### 1 9123-9, 30814-3, CMP, CBCA, 99570-6, 3040-3 #### [facility] ([id number]) [address] [place] [address] US ABDOMEN LMTDon 09-09-2023 US ABDOMEN LMTD US ABDOMEN LMTD US ABDOMEN LMTD WITH LIMITED DOPPLER. HISTORY: Concern for acute cholecystitis and cirrhosis. Abdominal pain. COMPARISON: None. FINDINGS: Unremarkable pancreatic head, neck, body. No peripancreatic collection seen. Morphologic features of chronic hepatocellular disease, right hepatic lobe measures 17.7 cm. No suspicious focal hepatic lesion. Appropriately directed flow within the main portal vein, 27.6 cm/s. Normal gallbladder. No cholelithiasis. No biliary dilatation, CBD measures 4-5 mm. IMPRESSION: Normal gallbladder. No biliary dilatation. Cirrhotic hepatic morphology appropriately directed flow within the main portal vein. Finalized by Farhad Muñoz MD on 09/09/2023 12:03 AM Normal [facility] US RETROPERITONEAL COMPLETEo n 09-09-2023 US RETROPERITONEAL COMPLETE US RETROPERITONEAL COMPLETE ULTRASOUND RETROPERITONEUM INDICATION: Left-sided flank pain. COMPARISON: CT same day. FINDINGS: Ultrasound evaluation of the kidneys and bladder was performed. Right kidney: 12 cm in maximal length. No collecting system dilatation, calculi, or contour deforming mass lesion. Left kidney: 11.8 cm in maximal length. Subtle 5 mm echogenic focus along the parenchyma of the interpolar region possibly small parenchymal calcification, small nonobstructive stone is difficult to exclude however no definite stone is seen on comparison CT. No collecting system dilatation. No solid renal mass. Bladder: Unremarkable fluid filled bladder. Bladder volume: 274 mL. Both ureteral jets seen. IMPRESSION: 1. Subtle 5 mm echogenic focus along the parenchyma of the interpolar region left kidney possibly small parenchymal calcification, small nonobstructive stone is difficult to exclude however no definite stone is seen on comparison CT. No collecting system dilatation. No solid renal mass. Finalized by Calvin Lewis MD on 09/09/2023 9:25 PM Normal [facility] BLOOD CULTUREon 09-08-2023 Bacteria identified Aer cx Nom (Bld) CULTURE RESULTS NO GROWTH 5 DAYS Normal [facility] Bacteria identified Aer cx Nom (Bld) CULTURE RESULTS NO GROWTH 5 DAYS Normal [facility] CBC AND AUTO DIFFon 09-08-19 24 ABSOLUTE BASOPHIL 0.3 X10E9/L High 0.0-0.2 [facility] Comment on above: Performed By: #### 1 9123-9, 04202-5, CMP, CBCA, 38492-9, 3040- 3 #### [facility] ([id number]) [address] [place] [address] ABSOLUTE NEUTROPHIL 16.9 X10E9/L High 1.5-6.6 [facility] Comment on above: Performed By: #### 1 9123-9, 30967-9, CMP, CBCA, 03538-5, 3040- 3 #### [facility] ([id number]) [address] [place] [address] Basophils/100 WBC (Bld) 1.3 % Normal [facility] Comment on above: Performed By: #### 1 9123-9, 95100-4, CMP, CBCA, 23136-9, 3040- 3 #### [facility] ([id number]) [address], [address] [place] [address] Eosinophils (Bld) [#/Vol] 0.0 10*3/uL Normal 0.0-0.4 [facility] Comment on above: Performed By: #### 1 9123-9, 00851-3, CMP, CBCA, 96861-2, 3040- 3 #### [facility] ([id number]) [address] [address] [place] [address] Eosinophils/100 WBC (Bld) 0.1 % Normal [facility] Comment on above: Performed By: #### 1 9123-9, 98862-2, CMP, CBCA, 90054-5, 3040- 3 #### [facility] ([id number]) [address], [address] [address] Erythrocyte distribution width (RBC) [Ratio] 13.3 % Normal 11.5-15.0 [facility] Comment on above: Performed By: #### 1 9123-9, 30719-5, CMP, CBCA, 57266-9, 3040- 3 #### [facility] ([id number]) [address], [facility] [address] [place] [address] Hematocrit (Bld) [Volume fraction] 47.6 % High 35-47 [facility] Comment on above: Performed By: #### 1 9123-9, 95086-9, CMP, CBCA, 03294-6, 3040- 3 #### [facility] ([id number]) [address] [address] Hemoglobin (Bld) [Mass/Vol] 16.6 g/dL High 11.7-15.5 [facility] Comment on above: Performed By: #### 1 9123-9, 82636-2, CMP, CBCA, 51108-7, 3040- 3 #### [facility] ([id number]) [address], [facility] [address] [place] [address] Lymphocytes (Bld) [#/Vol] 1.8 10*3/uL Normal 1.0-3.5 [facility] Comment on above: Performed By: #### 1 9123-9, 04459-3, CMP, CBCA, 19367-0, 3040- 3 #### [facility] ([id number]) [address], [address] [address] Lymphocytes/100 WBC (Bld) 8.9 % Normal [facility] Comment on above: Performed By: #### 1 9123-9, 02995-5, CMP, CBCA, 80479-6, 3040- 3 #### [facility] ([id number]) [address], [address] [place] [address] MCH (RBC) [Entitic mass] 29.5 pg Normal 27-34 [facility] Comment on above: Performed By: #### 1 9123-9, 90166-8, CMP, CBCA, 07640-3, 3040- 3 #### [facility] ([id number]) [address], [facility] [address] [place] [address] MCHC (RBC) [Mass/Vol] 34.9 g/dL Normal 32-36 [facility] Comment on above: Performed By: #### 1 9123-9, 53321-2, CMP, CBCA, 04091-9, 3040- 3 #### [facility] ([id number]) [address] [address] [place] [address] MCV (RBC) [Entitic vol] 85 fL Normal 80-100 [facility] Comment on above: Performed By: #### 1 9123-9, 99278-8, CMP, CBCA, 30409-9, 3040- 3 #### [facility] ([id number]) [address], [address] [place] [address] Monocytes (Bld) [#/Vol] 1.3 10*3/uL High 0-0.9 [facility] Comment on above: Performed By: #### 1 9123-9, 06111-9, CMP, CBCA, 55340-9, 3040- 3 #### [facility] ([id number]) [address], [address] [place] [address] Monocytes/100 WBC (Bld) 6.6 % Normal [facility] Comment on above: Performed By: #### 1 9123-9, 16526-6, CMP, CBCA, 34712-0, 3040- 3 #### [facility] ([id number]) [address], [address] [place] [address] Neutrophils/100 WBC (Bld) 83.1 % Normal [facility] Comment on above: Performed By: #### 1 9123-9, 16184-8, CMP, CBCA, 24678-3, 3040- 3 #### [facility] ([id number]) [address] [place] [address] Platelet mean volume (Bld) [Entitic vol] 8.7 fL Normal 7-12 [facility] Comment on above: Performed By: #### 1 9123-9, 92279-3, CMP, CBCA, 23806-5, 3040- 3 #### [facility] ([id number]) [address] [place] [address] Platelets (Bld) [#/Vol] 162 10*3/uL Normal 150-450 [facility] Comment on above: Performed By: #### 1 9123-9, 51454-2, CMP, CBCA, 96424-3, 3040- 3 #### [facility] ([id number]) [address] [place] [address] RBC COUNT 5.64 X10E12/L High 3.80-5.20 [facility] Comment on above: Performed By: #### 1 9123-9, 83242-0, CMP, CBCA, 61836-0, 3040- 3 #### [facility] ([id number]) [address] [place] [address] WBC (Bld) [#/Vol] 20.3 10*3/uL High 4.0-11.0 [facility] Comment on above: Performed By: #### 1 9123-9, 12402-1, CMP, CBCA, 21122-7, 3040- 3 #### [facility] ([id number]) [address], [address] [place] [address] COMPREHENSIVE METABOLIC PANE Dick 09-08-2023 Albumin [Mass/Vol] 4.1 g/dL Normal 3.2-5.3 [facility] Comment on above: Performed By: #### 1 9123-9, 36170-2, CMP, CBCA, 12463-1, 3040- 3 #### [facility] ([id number]) [address] [address] [place] [address] ALP [Catalytic activity/Vol] 64 U/L Normal 39-130 [facility] Comment on above: Performed By: #### 1 9123-9, 08580-7, CMP, CBCA, 26851-0, 3040- 3 #### [facility] ([id number]) [address] [address] [place] [address] ALT [Catalytic activity/Vol] 10 U/L Normal 0-31 [facility] Comment on above: Performed By: #### 1 9123-9, 96195-5, CMP, CBCA, 25894-8, 3040- 3 #### [facility] ([id number]) [address], [address] [place] [address] Anion gap [Moles/Vol] 13 mmol/L Normal 5-15 [facility] Comment on above: Performed By: #### 1 9123-9, 19457-0, CMP, CBCA, 23230-2, 3040- 3 #### [facility] ([id number]) [address], [address] [place] [address] AST [Catalytic activity/Vol] 25 U/L Normal 0-41 [facility] Comment on above: Performed By: #### 1 9123-9, 77783-4, CMP, CBCA, 96668-3, 3040- 3 #### [facility] ([id number]) [address], [address] [place] [address] Bilirubin [Mass/Vol] 1.5 mg/dL High 0.3-1.2 [facility] Comment on above: Performed By: #### 1 9123-9, 69270-7, CMP, CBCA, 77533-4, 3040- 3 #### [facility] ([id number]) [address], [address] [place] [address] Calcium [Mass/Vol] 8.9 mg/dL Normal 8.5-10.5 [facility] Comment on above: Performed By: #### 1 9123-9, 09133-1, CMP, CBCA, 21093-3, 3040- 3 #### [facility] ([id number]) [address], [address] [place] [address] Chloride [Moles/Vol] 106 mmol/L Normal 98-109 [facility] Comment on above: Performed By: #### 1 9123-9, 33500-1, CMP, CBCA, 49341-3, 3040- 3 #### [facility] ([id number]) [address], [address] [place] [address] CO2 [Moles/Vol] 20 mmol/L Low 22-32 [facility] Comment on above: Performed By: #### 1 9123-9, 90880-1, CMP, CBCA, 95148-4, 3040- 3 #### [facility] ([id number]) [address], [address] [place] [address] Creatinine [Mass/Vol] 0.75 mg/dL Normal 0.40-1.00 [facility] Comment on above: Result Comment: METH OD TRACEABLE TO IDMS STANDARD Performed By: #### 1 9123-9, 51972-4, CMP, CBCA, 84002-4, 3040-3 #### [facility] ([id number]) [address], [address] [address] GFR/1.73 sq M.predicted among non-blacks MDRD (S/P/Bld) [Vol rate/Area] 88 mL/min/{1.73_m2} Normal >59 [facility] Comment on above: Result Comment: Reported eGFR is based on the CKD-EPI 2020 equation that does not use a race coefficient. Performed By: #### 1 9123-9, 70969-3, CMP, CBCA, 00717-5, 3040-3 #### [facility] ([id number]) [address], [facility] [address] [place] [address] Glucose [Mass/Vol] 161 mg/dL High 65-99 [facility] Comment on above: Performed By: #### 1 9123-9, 84055-1, CMP, CBCA, 42278-6, 3040- 3 #### [facility] ([id number]) [address], [facility] [address] [place] [address] Potassium [Moles/Vol] 3.7 mmol/L Normal 3.5-5.0 [facility] Comment on above: Performed By: #### 1 9123-9, 95964-1, CMP, CBCA, 93446-4, 3040- 3 #### [facility] ([id number]) [address] [place] [address] Protein [Mass/Vol] 6.3 g/dL Normal 6.0-8.0 [facility] Comment on above: Performed By: #### 1 9123-9, 18071-4, CMP, CBCA, 93781-9, 3040- 3 #### [facility] ([id number]) [address] [place] [address] Sodium [Moles/Vol] 139 mmol/L Normal 134-146 [facility] Comment on above: Performed By: #### 1 9123-9, 43466-3, CMP, CBCA, 52047-2, 3040- 3 #### [facility] ([id number]) [address], [address] [place] [address] Urea nitrogen [Mass/Vol] 16 mg/dL Normal 5-27 [facility] Comment on above: Performed By: #### 1 9123-9, 34999-0, CMP, CBCA, 59053-8, 3040- 3 #### [facility] ([id number]) [address], [address] [place] [address] ED Clinical Summaryon 2023 ED Clinical Summary (Inserted Image. Elba ble to display) [place] [address] ED Clinical Summary Person Information Name: SOUMYA ABDI/[facility] Age: 63 Years : 1960 Sex: Female Language: Korean PCP: LUDWIN WEN MD Marital Status: Visit Id: Visit Reason: Back pain; Nausea and vomiting; Potential stroke; RT ARM PAIN, ABD PAIN Speciality: Acuity: 1 Enc Type: Emergency Med Service: Emergency Arrival: 09/07/2023 13:54:57 Discharge: 09/08/2023 12:49:08 LOS: 000 22:55 Checkin: 09/07/2023 13:54:57 Checkout: 09/08/2023 12:49:08 Dispo Type: Undefined HC Fac EVENTS: Event Name Event Status Request Date/Time Start Date/Time Complete Date/Time Arrive Complete 09/07/2023 13:54:57 09/07/2023 13:54:57 09/07/2023 13:54:57 Document Home Meds Request 09/07/2023 13:54:57 Triage Complete 09/07/2023 13:54:57 09/07/2023 14:09:49 09/07/2023 14:09:49 Bed Assign Complete 09/07/2023 13:54:57 09/07/2023 13:54:57 09/07/2023 13:54:57 Dr Exam Complete 09/07/2023 13:54:57 09/07/2023 13:58:42 09/07/2023 13:58:42 RN Exam Complete 09/07/2023 13:54:57 09/07/2023 14:58:08 09/07/2023 14:58:08 Registration Complete 09/07/2023 13:58:42 09/07/2023 15:03:12 09/07/2023 15:03:12 Dr Exam Complete 09/07/2023 13:58:49 09/07/2023 13:58:49 09/07/2023 13:58:49 EKG Complete 09/07/2023 14:01:32 09/07/2023 14:47:12 Meds Admin Request 09/07/2023 14:01:32 Pending Labs Request 09/07/2023 14:01:32 Lab Request 09/07/2023 14:01:32 Urine Collect Request 09/07/2023 14:01:32 CT Complete 09/07/2023 14:01:32 09/07/2023 14:15:34 09/07/2023 14:19:32 RR Stroke Request 09/07/2023 14:03:40 Pending Labs Complete 09/07/2023 14:05:27 09/07/2023 14:05:27 09/07/2023 14:05:28 Pending Labs Complete 09/07/2023 14:14:27 09/07/2023 14:14:27 09/07/2023 14:34:47 Lab Complete 09/07/2023 14:14:27 09/07/2023 14:14:27 09/07/2023 14:34:47 Pending Labs Complete 09/07/2023 14:16:28 09/07/2023 14:16:28 09/07/2023 14:16:28 Pending Labs Complete 09/07/2023 14:16:53 09/07/2023 14:16:53 09/07/2023 14:43:02 Blood Collect Start 09/07/2023 14:16:53 09/07/2023 14:16:53 Meds Admin Complete 09/07/2023 14:29:18 09/07/2023 14:42:35 Possible SIRS Request 09/07/2023 14:40:38 CT Complete 09/07/2023 14:58:03 09/07/2023 16:01:52 09/07/2023 16:10:08 RR Stroke Request 09/07/2023 14:58:09 Reg Complete Request 09/07/2023 15:03:12 Reg Bed Request Complete 09/07/2023 15:03:12 09/07/2023 15:03:12 09/07/2023 15:03:12 Meds Admin Complete 09/07/2023 15:16:09 09/07/2023 15:37:49 Pending Labs Complete 09/07/2023 16:33:00 09/07/2023 17:01:56 RT Tx/ABG Complete 09/07/2023 16:33:00 09/07/2023 18:09:30 09/07/2023 18:09:30 Pending Labs Complete 09/07/2023 16:34:09 09/07/2023 16:34:09 09/07/2023 16:52:21 Pending Labs Complete 09/07/2023 16:55:56 09/07/2023 17:54:19 Lab Complete 09/07/2023 16:55:56 09/07/2023 17:54:19 Meds Admin Request 09/07/2023 17:03:19 MRI Complete 09/07/2023 17:11:03 09/07/2023 18:14:17 09/07/2023 18:46:40 Pending Labs Complete 09/07/2023 17:18:50 09/07/2023 23:26:08 Pending Labs Complete 09/07/2023 17:29:38 09/07/2023 17:29:38 09/07/2023 18:20:45 Meds Admin Complete 09/07/2023 18:56:57 09/07/2023 19:05:15 Dr Exam Complete 09/07/2023 19:03:10 09/07/2023 19:03:10 09/07/2023 19:03:10 Registration Request 09/07/2023 19:03:10 Patient Care Request 09/07/2023 19:47:30 Transfer Complete 09/07/2023 19:47:30 09/08/2023 12:50:12 09/08/2023 12:50:12 Meds Admin Complete 09/07/2023 20:08:18 09/07/2023 20:25:14 Meds Admin Complete 09/07/2023 20:32:07 09/07/2023 23:52:16 Meds Admin Request 09/07/2023 23:11:46 Meds Admin Complete 09/07/2023 23:34:53 09/07/2023 23:40:31 Meds Admin Cancel 09/08/2023 01:54:43 09/08/2023 10:35:30 Meds Admin Request 09/08/2023 10:35:57 Meds Admin Complete 09/08/2023 11:08:19 09/08/2023 11:18:08 Meds Admin Complete 09/08/2023 12:40:45 09/08/2023 12:44:08 Patient Care Request 09/08/2023 12:48:23 Discharge Complete 09/08/2023 12:50:12 09/08/2023 12:50:12 09/08/2023 12:50:12 ADDRESS: [address] [place] [phone] PHYS DOC NOTES: MEDICAL INFORMATION: Prescriptions Given: PATIENT EDUCATION INFORMATION: Instructions: Follow up: DIAGNOSIS: 1:Elevated troponin; 2:Back pain; 3:Hypertension; Choledocholithiasis Normal [facility] ED Note-Nursingon 09-08-2023 ED Note-Nursing [facility] called silas harp ([phone]) to get an update about this patient. Stated that they are still on discharge dependent and will call back once they have an available bed. Normal [facility] ED Patient Education Noteon 09-08-2023 ED Patient Education Note Normal [facility] ED Patient Summaryon 024 ED Patient Summary (Inserted Image. Elba ble to display) [address] [address] Patient Discharge Instructions Person Information Name: SOUMYA ABDI Age: 63 Years Arrival Date: 09/07/2023 13:54:57 Discharge Diagnosis: 1:Elevated troponin; 2:Back pain; 3:Hypertension; Choledocholithiasis Primary Care Physician: LUDWIN WEN MD Provider Information Primary Provider: Scotty Huggins DO Advanced Inspector Floor:Chad Ying PA-C The exam and treatment you received in the Emergency Department were for an urgent problem and are not intended as complete care. It is important that you follow up with a doctor, nurse practitioner, or physician?s fast food sales assistant for ongoing care. If your symptoms become worse or you do not improve as expected and you are unable to reach your usual health care provider, you should return to the Emergency Department. We are available 24 hours a day. SOUMYA ABDI has been given the following list of patient education materials, prescriptions and follow-up instructions: Follow-up Instructions: In the event that this physician does not participate in your insurance network, please consult with your insurance company to find a nearby participating provider. Patient Education Materials: A MESSAGE TO ALL PATIENTS REGARDING OPIOIDS PRESCRIPTION OPIOIDS: WHAT YOU NEED TO KNOW Prescription opioids can be used to help relieve xsxrhbql-pv-bgusrk pain and are often prescribed following a surgery or injury, or for certain health conditions. These medications can be an important part of the treatment but also come with serious risks. It is important to work with your healthcare provider to make sure you are getting the safest, most effective care. WHAT ARE THE RISKS AND SIDE EFFECTS OF OPIOID USE? Prescription opioids carry serious risks of addiction and overdose, especially with prolonged use. An opioid overdose, often marked by slowed breathing, can cause sudden . The use of prescription opioids can have a number of side effects as well, even when taken as directed: ? Tolerance?meaning you might need to take more of the medication for the same pain relief ? Physical dependence?meaning you have symptoms of withdrawal when a medication is stopped ? Increased sensitivity to pain ? Constipation ? Nausea, vomiting, and dry mouth ? Sleepiness and dizziness ? Confusion ? Depression ? Low levels of testosterone that can result in lower sex drive, energy, and strength ? Itching and sweating RISKS ARE GREATER WITH: ? History of drug misuse, substance use disorder, or overdose ? Mental health conditions (such as depression or anxiety) ? Sleep apnea ? Older age (65 years and older) ? Avoid alcohol while taking prescription opioids. Also, unless specifically advised by your health care provider, medications to avoid include: ? Benzodiazepines (such as Xanax or Valium) ? Muscle relaxants (such as Soma or Flexeril) ? Hypnotics (such as Ambien or Lunesta) ? Other prescription opioids KNOW YOUR OPTIONS Talk to your health care provider about ways to manage your pain that don?t involve prescription opioids. Some of these options may actually work better and have fewer risks and side effects. Options may include: ? Pain relievers such as acetaminophen, ibuprofen, and naproxen ? Some medication that are also used for depression or seizures ? Physical therapy and exercise ? Cognitive behavioral therapy, a psychological, goal-directed approach, in which patients learn how to modify physical, behavioral, and emotional triggers of pain and stress. IF YOU ARE PRESCRIBED OPIOIDS FOR PAIN: ? Never take opioids in greater amounts or more often than prescribed. ? Follow up with your primary health care provider. o Work together to create a plan on how to manage your pain. o Talk about ways to help manage your pain that don?t involve prescription opioids. o Talk about any and all concerns and side effects. ? Help prevent misuse and abuse o Never sell or share prescription opioids. o Never use another person?s prescription opioids. ? Store prescription opioids in a secure place and out of reach of others (this may include visitors, children, friends, and family). ? Safely dispose of unused prescription opioids: Find your community drug take-back program or your pharmacy mail-back program, or flush them down the toilet, following guidance from the Food and Drug Administration (www.fda.gov/Drugs/Resourc esForYou). ? Visit www.cdc.gov/drugoverdose to learn about the risks of opioids abuse and overdose. ? If you believe you may be struggling with addiction, tell your health career services officer and ask for guidance or call [facility] National Helpline at 6-820-225-DSLG. v Source: US Department of Health and Human Services/Center for Disease Control & Prevention [facility] (more content not included)... Normal [facility] Glucose Glucometer (BldC) [M ass/Vol]on 09-08-2023 Glucose [Mass/Vol] 111 mg/dL High 65-99 [facility] Glucose [Mass/Vol] 118 mg/dL High 65-99 [facility] HEMOGLOBINon 09-08-2023 Hemoglobin (Bld) [Mass/Vol] 15.5 g/dL Normal 11.7-15.5 [facility] Comment on above: Performed By: #### P LTCT, THYR, 718-7, 23877-7, 05461-7, PINR #### [facility] ([id number]) [address], [address] [place] [address] HGB A1C (GLYCO-HGB)on 2023 Glucose [Mass/Vol] 128 mg/dL Normal [facility] Comment on above: Performed By: #### 1 9123-9, 59133-0, CMP, CBCA, 11476-0, 3040- 3 #### [facility] ([id number]) [address] [place] [address], [address] [place] [address] HbA1c (Bld) [Mass fraction] 6.1 % High 4.4-5.6 [facility] Comment on above: Result Comment: NOTE ADA Guidelines Result HgbA1c Normal : less than 5.7 % Prediabetes : 5.7 % to 6.4 % Diabetes : > 6.4 % Use with caution in patients with abnormal hemoglobin variants as the half-life of red blood cells and in vivo glycation rates are affected. Performed By: #### 1 9123-9, 93516-8, CMP, CBCA, 52918-6, 3040-3 #### [facility] ([id number]) [address], [address] [place] [address] LIPASEon 09-08-2023 Lipase [Catalytic activity/Vol] 14 U/L Normal 11-82 [facility] Comment on above: Performed By: #### 1 9123-9, 42095-7, CMP, CBCA, 58826-2, 3040- 3 #### [facility] ([id number]) [address], [address] [place] [address] Lactate (P rick) [Moles/Vol]o n 09-08-2023 Lactate [Moles/Vol] 1.8 mmol/L Normal 0.4-2.0 [facility] Comment on above: Performed By: #### 1 9123-9, 76820-2, CMP, CBCA, 13738-2, 3040- 3 #### [facility] ([id number]) [address], [address] [place] [address] LACTATE W/REFLEX 2.3 mmol/L High 0.4-2.0 [facility] Comment on above: Performed By: #### 3 3-1 #### [facility] ([id number]) [address], [address] [place] [address] Lipid 1996 panelon Cholesterol [Mass/Vol] 185 mg/dL Normal 150-200 [facility] Comment on above: Performed By: #### 1 9123-9, 81830-5, CMP, CBCA, 59194-7, 3040- 3 #### [facility] ([id number]) [address], [address] [place] [address] Cholesterol in HDL [Mass/Vol] 50 mg/dL Normal >39 [facility] Comment on above: Result Comment: HDL <40 mg/dL - High Risk HDL > or = 40mg/dL- Desirable HDL >60 mg/dL - Negative Risk Performed By: #### 1 9123-9, 68011-4, CMP, CBCA, 94444-2, 3040-3 #### [facility] ([id number]) [address], [address] [place] [address] Cholesterol in LDL [Mass/Vol] 109 mg/dL Normal <130 [facility] Comment on above: Result Comment: LDL <100 mg/dL - Desirable LDL >160 mg/dL - High Risk Performed By: #### 1 9123-9, 70632-9, CMP, CBCA, 60958-2, 3040-3 #### [facility] ([id number]) [address], [address] [place] [address] Cholesterol in VLDL [Mass/Vol] 26 mg/dL Normal 0-30 [facility] Comment on above: Performed By: #### 1 9123-9, 67294-9, CMP, CBCA, 01384-5, 3040- 3 #### [facility] ([id number]) [address], [address] [place] [address] CHOLESTEROL:HDL 3.7 Normal 1.0-5.0 [facility] Comment on above: Performed By: #### 1 9123-9, 56396-3, CMP, CBCA, 02647-4, 3040- 3 #### [facility] ([id number]) [address], [address] [place] [address] Triglyceride [Mass/Vol] 131 mg/dL Normal 27-150 [facility] Comment on above: Performed By: #### 1 9123-9, 05807-4, CMP, CBCA, 54574-8, 3040- 3 #### [facility] ([id number]) [address], [address] [place] [address] MAGNESIUMon 09-08-2023 Magnesium [Mass/Vol] 1.7 mg/dL Low 1.8-2.6 [facility] Comment on above: Performed By: #### 1 9123-9, 46359-1, CMP, CBCA, 63167-7, 3040- 3 #### [facility] ([id number]) [address], [address] [place] [address] PLATELET COUNT AND MPVon Platelet mean volume (Bld) [Entitic vol] 8.7 fL Normal 7-12 [facility] Comment on above: Performed By: #### P LTCT, THYR, 718-7, 14535-3, 03836-5, PINR #### [facility] ([id number]) [address], [address] [place] [address] Platelets (Bld) [#/Vol] 156 10*3/uL Normal 150-450 [facility] Comment on above: Performed By: #### P LTCT, THYR, 718-7, 15801-6, 64646-8, PINR #### [facility] ([id number]) [address], [address] [place] [address] PROTIME AND INRon 09-08-2023 INR Coag (PPP) [Relative time] 1.2 {INR} High 0.8-1.1 [facility] Comment on above: Performed By: #### 1 9123-9, 37329-2, CMP, CBCA, 83149-2, 3040- 3 #### [facility] ([id number]) [address], [address] [place] [address] PT Coag (PPP) [Time] 14.2 s High 9.8-13.2 [facility] Comment on above: Performed By: #### 1 9123-9, 62292-6, CMP, CBCA, 82214-2, 3040- 3 #### [facility] ([id number]) [address], [address] [place] [address] Procalcitonin IA [Mass/Vol]o n 09-08-2023 PROCALCITONIN 0.06 ng/mL High <0.05 [facility] Comment on above: Result Comment: NOTE <0.50 ng/mL - Low risk of severe sepsis and/or septic shock. <2.00 ng/mL - Recommend retesting within 6-24 hours. >2.00 ng/mL - High risk of sepsis and/or septic shock. Performed By: #### 1 9123-9, 17803-3, CMP, CBCA, 00043-7, 3040-3 #### [facility] ([id number]) [address], [address] [place] [address] THYROID PROFILEon 09-08-2023 Free T4 [Mass/Vol] 0.77 ng/dL Normal 0.61-1.60 [facility] Comment on above: Performed By: #### 1 9123-9, 97074-4, CMP, CBCA, 95947-0, 3040- 3 #### [facility] ([id number]) [address], [address] [place] [address] TSH 3.07 uIU/mL Normal 0.49-4.67 [facility] Comment on above: Performed By: #### 1 9123-9, 46218-7, CMP, CBCA, 94950-4, 3040- 3 #### [facility] ([id number]) [address], [address] [place] [address] TROPONIN Ion 09-08-2023 Troponin I.cardiac [Mass/Vol] 0.17 ng/mL High 0.00-0.04 [facility] Comment on above: Result Comment: Concentrations greater than or equal to 0.05 ng/ml are considered elevated. Elevations of Troponin may be due to causes other than myocardial ischemia. Recommend serial Troponin testing be performed. Performed By: #### 1 9123-9, 69850-5, CMP, CBCA, 76629-8, 3040-3 #### [facility] ([id number]) [address], [address] [place] [address] Troponin I.cardiac [Mass/Vol] 0.15 ng/mL High 0.00-0.04 [facility] Comment on above: Result Comment: Concentrations greater than or equal to 0.05 ng/ml are considered elevated. Elevations of Troponin may be due to causes other than myocardial ischemia. Recommend serial Troponin testing be performed. Performed By: #### 1 9123-9, 14568-2, CMP, CBCA, 40213-7, 3040-3 #### [facility] ([id number]) [address], [address] [place] [address] Transfer Documentson 024 Transfer Documents [id number] Normal [facility] Troponin 9 Hr.on 09-08-2023 Troponin 383.60 pg/mL Abnormal 10.10-27.10 [facility] Comment on above: Result Comment: Crit ical Result Verified by Previous Result Critical Result I_TnIHS:383.6 Called to and read back by: JULIO CONTRERAS at: 09/07/2023 23:26 by:[id number] The 95% CI (Confidence Interval) PPV (Positive Predictive Value) for myocardial infarction in females is 38 pg/mL, in males 51 pg/mL. The results should be used in conjunction with clinical conditions of myocardial infarction. (Access High Sensitivity Troponin I Instructions For Use, Dwight Webber, January 2018) Performed By: #### 1 [id number] ####[facility] [address] [place] [address] aPTT Coag (PPP) [Time]on aPTT Coag (Bld) [Time] 31 s Normal 26-37 [facility] Comment on above: Performed By: #### 1 9123-9, 99771-3, CMP, CBCA, 99595-7, 3040- 3 #### [facility] ([id number]) [address], [address] [place] [address] BB Draw & Holdon 09-07-2023 BB D&H Sample drawn for Blood Ba Normal [facility] Comment on above: Performed By: #### 1 5483166, 0760921, 7225482, 21308560, 247658482, 90980031, 18046694 ####[facility] [address] [place] [address] BMPon 09-07-2023 Anion gap [Moles/Vol] 21 mmol/L High 6-16 [facility] Comment on above: Performed By: #### 1 6787157, 0448923, 4850644, 70678616, 645509418, 05413190, 92895993 ####[facility] [address] [place] [address] Calcium [Mass/Vol] 10.1 mg/dL Normal 8.9-11.1 [facility] Comment on above: Performed By: #### 1 4678214, 3228881, 4483561, 77120992, 408832290, 79918476, 49471103 ####[facility] [address] [place] [address] Chloride [Moles/Vol] 100 mmol/L Low 101-111 [facility] Comment on above: Performed By: #### 1 3167226, 2043090, 6888813, 78457327, 499854364, 86762665, 12070238 ####[facility] [address] [place] [address] CO2 [Moles/Vol] 17 mmol/L Low 21-31 [facility] Comment on above: Performed By: #### 1 7048894, 6410829, 8945909, 83911163, 699494684, 07568578, 37944198 ####[facility] [address] [place] [address] Creatinine [Mass/Vol] 0.6 mg/dL Normal 0.5-1.3 [facility] Comment on above: Performed By: #### 1 5008843, 8501094, 7349038, 14658858, 195664790, 23978264, 46045051 ####[facility] [address] [place] [address] Glucose [Mass/Vol] 257 mg/dL High 55-199 [facility] Comment on above: Performed By: #### 1 3853317, 9080390, 9655766, 62254086, 486281392, 54946238, 53215455 ####[facility] [address] [place] [address] Potassium [Moles/Vol] 3.6 mmol/L Normal 3.5-5.3 [facility] Comment on above: Performed By: #### 1 6881579, 6109323, 5243050, 84566897, 309449940, 80878457, 11522081 ####[facility] [address] [place] [address] Sodium [Moles/Vol] 134 mmol/L Low 135-145 [facility] Comment on above: Performed By: #### 1 8906438, 0709546, 2051514, 82634813, 712210745, 16925295, 20802062 ####[facility] [address] [place] [address] Urea nitrogen [Mass/Vol] 16 mg/dL Normal 5-21 [facility] Comment on above: Performed By: #### 1 0099526, 4026594, 9733338, 46785203, 145487608, 98563207, 09461280 ####[facility] [address] [place] [address] Urea nitrogen/Creatinine [Mass ratio] 27 No Units High 10-20 [facility] Comment on above: Performed By: #### 1 3555696, 2743046, 1439102, 75106060, 308852106, 76012837, 82797436 ####[facility] [address] [place] [address] BOHBon 09-07-2023 Beta HB Qnt 1.32 mmol/L High 0.02-0.27 [facility] Comment on above: Performed By: #### 1 8104185, 2845181, 4519630, 25872185, 950249482, 54859891, 30218690 ####[facility] [address] [place] [address] Bld Gas Venon 09-07-2023 Allens Test Not Applicable Normal [facility] Comment on above: Performed By: #### 1 8508988 ####[facility] [address] [place] [address] Drawn by LAB Invalid Interpretation Code [facility] Comment on above: Performed By: #### 1 6655307 ####[facility] [address] [place] [address] FIO2 BG 21 Invalid Interpretation Code [facility] Comment on above: Performed By: #### 1 7871866 ####[facility] [address] [place] [address] pCO2 Rick 38.1 mmHg Normal 38.0-50.0 [facility] Comment on above: Performed By: #### 1 6386462 ####[facility] [address] [place] [address] pH Rick 7.395 Normal 7.320-7.430 [facility] Comment on above: Performed By: #### 1 6357768 ####[place] [address] Sample Site OTHER Normal [facility] Comment on above: Performed By: #### 1 1603554 ####[place] [address]194857 Sample Type Venous Draw Normal [facility] Comment on above: Performed By: #### 1 4651188 ####[place] [address]194857 CBC w/ Auto Diffon 4 Basophils/100 WBC (Bld) 0.8 % Normal 0.0-2.0 [facility] Comment on above: Performed By: #### 1 6709348, 0085428, 7438053, 51821664, 171161480, 76293362, 56444009 ####[place] [address]857 Basophils/Leukocytes Auto (Bld) [Pure # fraction] 0.1 E9/L Normal 0.0-0.2 [facility] Comment on above: Performed By: #### 1 2235009, 0128968, 2998218, 08483654, 710625988, 59652950, 63944045 ####[place] [address] Eosinophils (Bld) [#/Vol] 0.0 E9/L Normal 0.0-0.5 [facility] Comment on above: Performed By: #### 1 5709251, 3960063, 6227950, 18264699, 170513452, 61224896, 35465580 ####[address] [address] Eosinophils/100 WBC (Bld) 0.0 % Normal 0.0-8.0 [facility] Comment on above: Performed By: #### 1 0240788, 4231558, 1233165, 62454844, 518622639, 87528522, 58200500 ####[address] [address] Lymphocytes (Bld) [#/Vol] 1.5 E9/L Normal 1.0-4.0 [facility] Comment on above: Performed By: #### 1 6751007, 6770774, 7286269, 65056445, 674473354, 85381213, 30952540 ####[facility] [address] [place] [address] Lymphocytes/100 WBC (Bld) 8.9 % Low 14.0-50.0 [facility] Comment on above: Performed By: #### 1 6255091, 8169001, 3089792, 35339538, 338549376, 74396423, 71949449 ####[place] [address] [place] [address] Monocytes (Bld) [#/Vol] 0.6 E9/L Normal 0.2-1.0 [facility] Comment on above: Performed By: #### 1 4375105, 0056421, 7422661, 44138839, 680372254, 53876915, 47002779 ####[address] [address] Neutrophils (Bld) [#/Vol] 14.8 E9/L High 2.0-7.5 [facility] Comment on above: Performed By: #### 1 4721900, 2561814, 4914688, 24888773, 903553208, 40157151, 17820414 ####[address] [address] Neutrophils/100 WBC (Bld) 86.9 % High 36.0-75.0 [facility] Comment on above: Performed By: #### 1 6717261, 0259188, 4316094, 50846086, 523781060, 80804100, 71810234 ####[place] [address] [place] [address] Erythrocyte distribution width (RBC) [Ratio] 13.3 % Normal 10.9-14.2 [facility] Comment on above: Performed By: #### 1 0110563, 2887648, 9134632, 64375610, 666924622, 36061137, 79974893 ####[place] [address] [place] [address] Hematocrit (Bld) [Volume fraction] 49.2 % High 34.0-46.0 [facility] Comment on above: Performed By: #### 1 2740315, 7431317, 3961897, 59236864, 847513714, 44494550, 62044938 ####[place] [address] [place] [address] Hemoglobin (Bld) [Mass/Vol] 17.2 g/dL High 12.0-16.0 [facility] Comment on above: Performed By: #### 1 0189597, 4971178, 6949635, 34793342, 511984676, 16180356, 98468297 ####[place] [address] [place] [address] MCH (RBC) [Entitic mass] 29.0 pg Normal 27.0-34.0 [facility] Comment on above: Performed By: #### 1 4395536, 7480849, 4476862, 76907038, 374483484, 63690863, 64032320 ####[address] [address] MCHC (RBC) [Mass/Vol] 34.9 g/dL Normal 31.4-36.0 [facility] Comment on above: Performed By: #### 1 7219577, 4348800, 8092716, 56782791, 714621956, 07071159, 57078082 ####[place] [address] [place] [address] MCV (RBC) [Entitic vol] 83.1 fL Normal 80.0-100.0 [facility] Comment on above: Performed By: #### 1 6163482, 9738759, 7382810, 27316285, 365018482, 42747920, 28761479 ####[place] [address] [place] [address] Platelet mean volume (Bld) [Entitic vol] 8.8 fL Normal 6.4-10.8 [facility] Comment on above: Performed By: #### 1 7602882, 4918059, 8570460, 57076534, 090570960, 87697286, 69840107 ####[facility] [address] [place] [address] Platelets (Bld) [#/Vol] 191.0 E9/L Normal 150.0-500.0 [facility] Comment on above: Performed By: #### 1 3081156, 1184836, 5516072, 15179712, 018660168, 53064983, 54419136 ####[place] [address] [place] [address] RBC (Bld) [#/Vol] 5.9 E12/L Normal 4.3-5.9 [facility] Comment on above: Performed By: #### 1 2734781, 7534769, 7285351, 85129024, 000517869, 65019483, 99143128 ####[place] [address] [place] [address] WBC corrected for nucl RBC Auto (Bld) [#/Vol] 17.0 E9/L High 4.0-11.0 [facility] Comment on above: Performed By: #### 1 7359807, 4606793, 6964249, 25822241, 202287126, 75887510, 91140978 ####[facility] [address] [place] [address] CHEMISTRYOrdered By: SYSTEM SYSTEM on 09-07-2023 Troponin 383.60 pg/mL Invalid Interpretation Code 10.10 - 27.10 pg/mL Remisol Chem Comment on above: Result Comment: Crit ical Result Verified by Previous Result Critical Result I_TnIHS:383.6 Called to and read back by: JULIO CONTRERAS at: 09/07/2023 23:26 by:[id number] Interpretive Data: T he 95% CI (Confidence Interval) PPV (Positive Predictive Value) for myocardial infarction in females is 38 pg/mL, in males 51 pg/mL. The results should be used in conjunction with clinical conditions of myocardial infarction. (Access High Sensitivity Troponin I Instructions For Use, Number 100, January 2018) Troponin 297.80 pg/mL Invalid Interpretation Code 10.10 - 27.10 pg/mL Remisol Chem Comment on above: Result Comment: Crit ical Result Verified by Previous Result Critical Result I_TnIHS:297.8 Called to and read back by: DR. CLEMENTE at: 09/07/2023 20:11:08 by:[id number] Interpretive Data: T he 95% CI (Confidence Interval) PPV (Positive Predictive Value) for myocardial infarction in females is 38 pg/mL, in males 51 pg/mL. The results should be used in conjunction with clinical conditions of myocardial infarction. ([facility] High Sensitivity Troponin I Instructions For Use, Number 100, January 2018) Albumin [Mass/Vol] 4.8 g/dL Normal 3.3 - 5.0 gm/dL Remisol Chem Albumin/Globulin [Mass ratio] 2.0 {ratio} Normal 1.1 - 2.2 Remisol Chem ALP [Catalytic activity/Vol] 73 [iU]/d Normal 21 - 98 Int._Unit/L Remisol Chem ALT No additional P-5'-P [Catalytic activity/Vol] 11 [iU]/d Normal 6 - 46 Int._Unit/L Remisol Chem AST [Catalytic activity/Vol] 18 [iU]/d Normal 5 - 43 Int._Unit/L Remisol Chem Bilirubin [Mass/Vol] 1.8 mg/dL High 0.0 - 1 .1 mg/dL Rem[facility] Chem Bilirubin.direct [Mass/Vol] 0.3 mg/dL Normal 0.0 - 0.4 mg/dL Remisol [facility] Bilirubin.indirect [Mass or moles/Vol] 1.5 mg/dL High 0.1 - 0.9 mg/dL [facility] Globulin (S) [Mass/Vol] 2.4 g/dL Normal 1.4 - 4.0 gm/dL [facility] Lipase [Catalytic activity/Vol] 15 U/L Normal 13 - 58 unit/L Remisol Chem Protein [Mass/Vol] 7.2 g/dL Normal 6.0 - 7.8 gm/dL Remisol Chem Troponin 264.00 pg/mL Invalid Interpretation Code 10.10 - 27.10 pg/mL Remisol Chem Comment on above: Result Comment: Crit ical Result Verified by Previous Result Critical Result I_TnIHS:264.0 Called to and read back by: CANDY WILLS at: 09/07/2023 18:20:37 by:[id number] Interpretive Data: T he 95% CI (Confidence Interval) PPV (Positive Predictive Value) for myocardial infarction in females is 38 pg/mL, in males 51 pg/mL. The results should be used in conjunction with clinical conditions of myocardial infarction. (Access High Sensitivity Troponin I Instructions For Use, Dwight Brandie, January 2018) Anion gap [Moles/Vol] 21 mmol/L High 6 - 16 mEq/L R emisol Chem Beta HB Qnt 1.32 mmol/L High 0.02 - 0.27 mmol/L Remisol Chem Calcium [Mass/Vol] 10.1 mg/dL Normal 8.9 - 11. 1 mg/dL [facility] Chloride [Moles/Vol] 100 mmol/L Low 101 - 1 11 mmol/L Remisol [facility] CO2 [Moles/Vol] 17 mmol/L Low 21 - 31 mmol/L [facility] Creatinine [Mass/Vol] 0.6 mg/dL Normal 0.5 - 1.3 mg/dL [facility] eGFR 99 mL/min/1.73 m2 Normal >=59mL/min /1 .73 m2 Remisol Chem Glucose [Mass/Vol] 257 mg/dL High 55 - 199 mg/dL [facility] Potassium [Moles/Vol] 3.6 mmol/L Normal 3.5 - 5.3 mmol/L [facility] Sodium [Moles/Vol] 134 mmol/L Low 135 - 145 mmol/L [facility] Urea nitrogen [Mass/Vol] 16 mg/dL Normal 5 - 21 mg/dL [facility] Urea nitrogen/Creatinine [Mass ratio] 27 mg/mg High 10 - 20 Remisol Chem CHEMISTRYOrdered By: Roni KWOK User on 09-07-2023 Glucose [Mass/Vol] 250 mg/dL High 55 - 99 mg/dL [facility] [place] Sub[place] Comment on above: Result Comment: Dimas tony RN/ POC Device SN [id number] Invalid Interpretation Code [facility] [place] Subsection POC User ID [id number] Invalid Interpretation Code [facility] [place]section POC Username NAOMIE MONTEMAYOR Invalid Interpretation Code [facility] [place] Subsection COAGULATIONOrdered By: Barb Wu on 09-07-2023 aPTT Coag (PPP) [Time] 35.8 s Normal 25.1 - 36.5 second(s) [facility] Auto Coag Comment on above: Interpretive Data: P arameter 15 days - 4 weeks 1 - 5 months 6 - 11 months 1 - 5 years 6 - 10 years 11 - 17 years PTT Mean: 35.4 (27.6-45.6) Mean: 33.5 (24.8-40.7) Mean: 32.4 (25.1-40.7) Mean: 31.6 (24.0-39.2) Mean: 31.6 (26.9-38.7) Mean: 31.0 (24.6-38.4) Pediatric Reference ranges were obtained from a study by Juan F Izaguirre et al. prepared from 1437 samples obtained at 7 different centers using the same coagulation reagent and instrumentation as [facility]. Currently there are no coagulation studies available worldwide for children to 14 days, and no normal ranges. Heparin therapeutic range (represented by Anti-Factor Xa activity of 0.2 - 0.4 U/mL) corresponds to PTT of 56.6 - 109.0 sec. INR Coag (PPP) [Relative time] 1.18 {INR} Invalid Interpretation Code [facility] Auto Coag Comment on above: Interpretive Data: I NR results are specifically intended to assess patients stabilized on long-term Anticoagulation therapy suggested INR s Less Intensive Anticoagulation 2.0 3.0 Conventional Range 3.0 4.5 PT Coag (PPP) [Time] 13.2 s High 9.4 - 1 2.5 second(s) [facility] Auto Coag Comment on above: Interpretive Data: 1 5 days - 4 weeks 1 - 5 months 6 -11 months 1 5 years 6 10 years 11 -17 years Mean: 11.2 (9.5 12.6) Mean: 11.0 (9.7 12.8) Mean: 11.0 (9.8 13.0) Mean: 11.3 (9.9 13.4) Mean: 11.7 (10.0 14.6) Mean: 11.8 (10.0 - 14.1) Pediatric Reference ranges were obtained from a study by Juan F Izaguirre et al. prepared from 1437 samples obtained at 7 different centers using the same coagulation reagent and instrumentation as [facility]. Currently there are no coagulation studies available worldwide for children to 14 days, and no normal ranges. CT Head or Brain w/o Contras ton 09-07-2023 CT Head or Brain w/o Contrast Exam Date/Time: 09/07/2023 14:19 EST Reason for Exam: Delirium Report IMPRESSION: No acute intracranial hemorrhage. COMMUNICATION: Communicated with ER via wet read in PACS on 09/07/2023 at 1425. EXAMINATION: CT Head or Brain w/o Contrast HISTORY: Delirium. Rapid response stroke. Left arm spasms. TECHNIQUE: Serial axial images without IV contrast were obtained from the vertex to the foramen magnum, with sagittal and coronal reconstructions. All CT scans at this facility use dose modulation, iterative reconstruction, and/or weight based dosing when appropriate to reduce radiation dose to as low as reasonably achievable. COMPARISON: None. RESULT: Acute change: No evidence of an acute infarct or other acute parenchymal process. Hemorrhage: No evidence of acute intracranial hemorrhage. Mass Lesion / Mass Effect: There is no evidence of an intracranial mass or extraaxial fluid collection. No significant mass effect. Chronic change: Area of low-attenuation suggestive of encephalomalacia within the periventricular right frontoparietal parietal region. Scattered patchy foci of low attenuation are present within supratentorial white matter which is a nonspecific finding but likely represents mild microvascular ischemia. Vascular calcifications. Parenchyma: There is no significant volume loss. Ventricles: The ventricles are within normal limits of size and configuration for age. Paranasal sinuses and skull base: Mucosal opacification of the right maxillary sinus. Other areas of mucosal thickening ethmoid air cells and frontal sinuses. Mastoid air cells clear. The skull base is unremarkable. Soft tissues unremarkable. Report Ordering Provider: Chad Ying FINAL REPORT Dictated: 09/07/2023 2:27 pm Ludwin Guzman MD. Signed (Electronic Signature): 09/07/2023 2:27 pm Signed by: Ludwin Guzman MD Transcribed by: CRISTIN Technologist: ELOINA Wet Read 09/07/2023 02:25 pm EST, Ludwin Guzman MD. CT Brain: NO evidence of Acute Intracranial Process. Normal [facility] CTA Abdomen and Pelvison CTA Abdomen and Pelvis Exam Date/Time: 09/07/2023 16:10 EST Reason for Exam: Aortic dissection Report PLEASE SEE CTA Chest REPORT DATED: 09/07/2023. All CT scans at this facility use dose modulation, iterative reconstruction, and/or weight based dosing when appropriate to reduce radiation dose to as low as reasonably achievable. Ordering Provider: Chad Ying FINAL REPORT Dictated: 09/07/2023 4:51 pm Harman Forman MD Signed (Electronic Signature): 09/07/2023 4:51 pm Signed by: Harman Forman MD Transcribed by: CRISTIN Technologist: SAPNA Technical Comments GFR (mL/min/1/73m2) n/a disection Contrast: Isovue 370 Contrast amount in ml's: 100 Normal [facility] CTA Cheston 09-07-2023 CTA Chest Exam Date/Time: 09/07/2023 16:10 EST Reason for Exam: Aortic dissection Report IMPRESSION: NO EVIDENCE OF AORTIC DISSECTION, ANEURYSM, ACTIVE CARDIOPULMONARY DISEASE, OR DEFINITE ACUTE INTRA-ABDOMINAL PROCESS. MILD TO MODERATE GALLBLADDER DISTENTION, WITHOUT RADIODENSE CALCULI OR OTHER CT FEATURES OF ACUTE CHOLECYSTITIS. BORDERLINE EXTRAHEPATIC BILIARY DILATATION, WITH A QUESTIONABLE 8 X 5 MM OVOID SOFT TISSUE DENSITY FILLING DEFECT WITHIN THE DISTAL COMMON DUCT AT THE PAPILLA, DESCRIBED. FURTHER EVALUATION WITH MRCP IS SUGGESTED; CLINICALLY WARRANTED. 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 CLINICAL HISTORY: Back pain, hypertension, and left upper extremity heaviness. COMPARISON: None available. TECHNIQUE: Spiral enhanced images were obtained of the chest, abdomen and pelvis after the infusion of approximately 100 mL of Isovue 370 contrast with pulmonary artery CTA protocol. Routine and volume rendered images were obtained on a three-dimensional workstation. All CT scans at this facility use dose modulation, iterative reconstruction, and/or weight based dosing when appropriate to reduce radiation dose to as low as reasonably achievable. Unless otherwise stated, incidental findings identified in this report do not require routine follow-up imaging. CHEST CTA FINDINGS: Pulmonary arteries: Normal in caliber without filling defects identified to suggest pulmonary emboli. Thoracic aorta: Normal in caliber with mild atherosclerotic plaquing. There is no dissection. Moderately extensive calcific plaquing of the proximal right subclavian artery, with approximately 75% stenosis at its origin. No other flow-limiting stenosis identified. Heart: Not enlarged. Postoperative changes from previous with coronary artery calcifications and/or stents. No significant pericardial effusion. Mediastinum & lymph nodes: No pathologically enlarged mediastinal, hilar, or axillary lymph nodes. Lungs and pleura: No focal consolidation, pleural effusion, or pneumothorax. Thyroid: Unremarkable. Esophagus: Unremarkable. Musculoskeletal: No acute osseous findings. Mild rotary dextroscoliosis and moderate degenerative changes of the thoracic spine. Report ABDOMEN AND PELVIS CTA FINDINGS: Vasculature: No aneurysm or dissection. Mild to moderate calcific atherosclerotic plaquing. No significant stenosis or branch occlusion. Liver: Morphologic changes suggestive of hepatic cirrhosis. No suspicious mass or lesion. Biliary: The mild to moderately dilated gallbladder is otherwise unremarkable in appearance. Borderline extrahepatic biliary dilatation, with the common duct measuring approximately 7 to 8 mm in caliber at the alena hepatis. Questionable faintly radiodense approximately 8 x 5 mm ovoid filling defect within the distal common duct at the papilla (images 55 and 56 - coronal series 8). No significant intrahepatic bile duct dilation or other radiodense calculi. Pancreas: Unremarkable. No mass or pancreatic duct dilation. Spleen: Unremarkable. Adrenals: Unremarkable. Kidneys: 3 mm nonobstructing right lower pole renal calculus. Both kidneys are otherwise unremarkable appearance. No hydronephrosis or other significant urinary tract calculi. GI tract: No abnormal dilation or wall thickening. Minimal diverticulosis. Normal appendix. Lymph nodes: No pathologically enlarged lymph nodes. Mesentery/peritoneum: No ascites or mass. Retroperitoneum: No inflammatory changes or mass. Pelvis: The urinary bladder is unremarkable. No mass, organized fluid collection, or ascites. Musculoskeletal: No acute osseous findings. Mild to moderate degenerative changes, predominantly in the lower facet joints, with approximately 5 mm of anterolisthesis of L4 over L5. Ordering Provider: Chad Ying FINAL REPORT Dictated: 09/07/2023 4:50 pm Harman Forman MD Signed (Electronic Signature): 09/07/2023 4:50 pm Signed by: Harman Forman MD Transcribed by: CRISTIN Technologist: SRF Technical Comments GFR (mL/min/1/73m2) n/a disection Contrast: Isovue 370 Contrast amount in ml's: 100 Normal [facility] Capillary Glucose POCon Glucose [Mass/Vol] 250 mg/dL High 55-99 [facility] Comment on above: Result Comment: Dimas tony RN/MD Performed By: #### 2 [id number] ####[facility] [address] [place] [address] Consent for Treatmenton Consent for Treatment [id number] Normal [facility] ED Note-Physicianon 09-07-19 24 ED Note-Physician Basic Information Time Seen: Scotty Huggins DO 09/07/2023 13:58 Chief Complaint Pt presents to ED via EMS with complaints of back pain, HTN and left upper arm disfunction-per pt muscle spasm . upon arrival pt left arm heavy . RR stroke initiated History of Present Illness 63-year-old female comes to the ED for evaluation of back pain. The patient is very anxious upon initial evaluation in the space with a history difficult to gather. From what I can ascertain the patient developed some lower back pain yesterday. States has a history of chronic back pain for which she is on oral morphine. She states the dose was recently reduced. Because of her pain she has noticed her blood pressure has been increasing. She also has some nausea. Today she developed some extremity paresthesias and was worried she was having a stroke. She does have a family history of stroke, and this is what prompted her to call EMS. She has no headache or visual changes. Review of Systems A 10 point review of systems is negative except as noted above. Medical and Surgical History: Reviewed and noted Social history: Lives at home Tobacco: Denies Physical Exam Vitals & Measurements T: 36.6 ?C(Oral) HR: 101(Monitored) RR: 18 BP: 203/111 SpO2: 98% HT: 168 cm WT: 84.7 kg BMI: 30.01 Nurses notes and vital signs reviewed and patient is not hypoxic. General: Awake and alert, anxious, tearful Skin: Warm, dry, no pallor noted. Head: Atraumatic. Neck: No JVD. Eye: Normal conjunctiva. Ears, Nose, Mouth, and Throat: Moist mucous membranes Cardiovascular: Strong distal pulses. Chest wall: Respiratory: Respirations are nonlabored. Back: Normal range of motion, no CVA tenderness. Musculoskeletal: No gross deformity moving all extremities without difficulty Gastrointestinal: Soft and nontender. Urological: Neurological: Awake and alert. No focal deficits. Follows commands. GCS 15. NIHSS 0 performed at 1358 Psychiatric: Cooperative. Medical Decision Making Patient presents extremely anxious with complaints of back pain, vomiting and arm pain. She voiced concern for having a stroke, though no focal deficit is appreciated. NIHSS is zero. She is not a TPA candidate. She is medicated for pain and anxiety and a stroke workup was initiated. CT the brain is negative per radiologist. With follow-up examination patient is much improved after medications. She does complain of nausea vomiting and does admit to some abdominal pain that radiates to the back. She does have significant hypertension. Given her constellation of symptoms and presentation, concern for aortic disease. She is sent for CTA chest abdomen pelvis. This is reviewed by radiologist. No aortic disease, but patient does have significant gallbladder abnormalities. Concern for choledocholithiasis with MRCP recommended. This is ordered and pending. Laboratory studies are reviewed. She does have a leukocytosis with hyperglycemia. Bicarb 17, gap 21, venous blood gas was added and pH is normal. She has been treated with IV fluids. Troponin is notably elevated at 134 as well. EKG does show some ST depressions. At this time patient is sleeping, vital signs are improved, and MRCP is pending. Case is discussed with the oncoming physician for follow-up and disposition. Patient's MRI shows findings consistent with acute choledocholithiasis no evidence of cholecystitis. I reach out to general surgery who recommends transfer. Discussed findings with patient she prefers to go to [facility] she has had previous care there. Patient is started on Zosyn for possible intra-abdominal cholecystitis infection due to choledocholithiasis. I spoke with Dr. Merritt at [facility], who does accept the patient for transfer. Assessment/Plan 1. Elevated troponin (R79.89: Other specified abnormal findings of blood chemistry) 2. Back pain (M54.9: Dorsalgia, unspecified) 3. Hypertension (I10: Essential (primary) hypertension) Orders: lorazepam, 1 mg = 0.5 mL, Injection, IV Push, Once, Stop date 09/07/23 15:15:00 EST, STAT, Start date 09/07/23 15:15:00 EST, 09/07/23 15:15:00 EST morphine, 4 mg = 1 mL, Injection, IV Push, Once, Stop date 09/07/23 14:28:00 EST, STAT, Start date 09/07/23 14:28:00 EST, 09/07/23 14:28:00 EST ondansetron, 4 mg = 2 mL, Injection, IV Push, Once, Stop date 09/07/23 14:29:00 EST, STAT, Start date 09/07/23 14:29:00 EST, 09/07/23 14:29:00 EST Sodium Chloride 0.9% intravenous solution 1,000 mL, 1,000 mL, IV, 20 mL/hr, STAT, Start date 09/07/23 14:01:00 EST, 50 hour(s), Total volume (mL): 1,000 Sodium Chloride 0.9% intravenous solution 1,000 mL, 1,000 mL, IV, Bolus, STAT, Start date 09/07/23 17:03:00 EST, Total volume (mL): 1,000, 84.7 kg, 1.99, m2 Basic Metabolic Panel BB Draw & Hold Beta-hydroxybutyrate Blood Gas Rick CBC w/ Auto Diff CT Head or Brain w/o Contrast CTA Abdomen and Pelvis CTA Chest ECG 12 Lead Adult eGFR Extra SST Tube Hepatic Function Panel Lipase Level MRI Cholangiogram Pancreatography (mrc (more content not included)... Normal [facility] Comment on above: Result Comment: Elec tronically Signed By: Chad Ying PA-C\.br\Date and Time Signed: 09/07/23 18:11 EST\.br\Electronically Co-Signed By: Jordy Clemente DO\.br\Date and Time Co-Signed: 09/07/23 21:38 EST\.br\Electronically Co-Signed By: Scotty Huggins DO\.br\Date and Time Co-Signed: 09/08/23 07:39 EST FT Blood GasesOrdered By: Rodrigue Bermudez on 09-07-2023 Allens Test Not Applicable (09/07/23 4:48 PM) Normal [facility] Resp Auto SS Drawn by LAB Invalid Interpretation Code [facility] Resp Auto SS FIO2 BG 21 1 Invalid Interpretation Code [facility] Resp Auto SS pCO2 Rick 38.1 mm[Hg] Normal 38.0 - 50.0 mmHg [facility] Resp Auto SS pH (Bld) 7.395 [pH] Normal 7.320 - 7.430 [facility] Resp Auto SS Sample Site OTHER (09/07/23 4:48 PM) Normal [facility] Resp Auto SS Sample Type Venous Draw (09/07/23 4:48 PM) Normal [facility] Resp Auto SS HEMATOLOGYOrdered By: SYSTEM SYSTEM on 09-07-2023 Basophils/100 WBC (Bld) 0.8 % Normal 0.0 - 2.0 % Remisol Heme Basophils/Leukocytes Auto (Bld) [Pure # fraction] 0.1 E9/L Normal 0.0 - 0.2 E9/L Remisol Heme Eosinophils (Bld) [#/Vol] 0.0 E9/L Normal 0.0 - 0.5 E9/L Remisol Heme Eosinophils/100 WBC (Bld) 0.0 % Normal 0.0 - 8.0 % Remisol Heme Erythrocyte distribution width (RBC) [Ratio] 13.3 % Normal 10.9 - 14.2 % Remisol Heme Hematocrit (Bld) [Volume fraction] 49.2 % High 34.0 - 46.0 % Remisol Heme Hemoglobin (Bld) [Mass/Vol] 17.2 g/dL High 12.0 - 16.0 gm/dL Remisol Heme Lymphocytes (Bld) [#/Vol] 1.5 E9/L Normal 1.0 - 4.0 E9/L Remisol Heme Lymphocytes/100 WBC (Bld) 8.9 % Low 14.0 - 50.0 % Remisol Heme MCH (RBC) [Entitic mass] 29.0 pg Normal 27.0 - 34.0 pg Remisol Heme MCHC (RBC) [Mass/Vol] 34.9 g/dL Normal 31.4 - 36.0 gm/dL Remisol Heme MCV (RBC) [Entitic vol] 83.1 fL Normal 80.0 - 100.0 fL Remisol Heme Monocytes (Bld) [#/Vol] 0.6 E9/L Normal 0.2 - 1.0 E9/L Remisol Heme Monocytes/100 WBC (Bld) 3.4 % Low 4.0 - 14.0 % Remisol Heme Neutrophils (Bld) [#/Vol] 14.8 E9/L High 2.0 - 7.5 E9/L Remisol Heme Neutrophils/100 WBC (Bld) 86.9 % High 36.0 - 75.0 % Remisol Heme Platelet mean volume (Bld) [Entitic vol] 8.8 fL Normal 6.4 - 10.8 fL Remisol Heme Platelets (Bld) [#/Vol] 191.0 E9/L Normal 150.0 - 500.0 E9/L Remisol Heme RBC (Bld) [#/Vol] 5.9 E12/L Normal 4.3 - 5.9 E12/L Remisol Heme WBC corrected for nucl RBC Auto (Bld) [#/Vol] 17.0 E9/L High 4.0 - 11.0 E9/L Remisol Heme Hep Func Panelon 09-07-2023 Albumin [Mass/Vol] 4.8 g/dL Normal 3.3-5.0 [facility] Comment on above: Performed By: #### 2 [id number] ####[facility] [address] [place] [address] Albumin/Globulin (S) [Mass conc ratio] 2.0 Normal 1.1-2.2 [facility] Comment on above: Performed By: #### 2 [id number], [id number], [id number] ####[facility] [address] [place] [address] ALP [Catalytic activity/Vol] 73 Int._Unit/L Normal 21-98 [facility] Comment on above: Performed By: #### 2 [id number], [id number], [id number] ####[facility] [address] [place] [address] ALT No additional P-5'-P [Catalytic activity/Vol] 11 Int._Unit/L Normal 6-46 [facility] Comment on above: Performed By: #### 2 [id number], [id number], [id number] ####[facility] [address] [place] [address] AST [Catalytic activity/Vol] 18 Int._Unit/L Normal 5-43 [facility] Comment on above: Performed By: #### 2 [id number], [id number], [id number] ####[facility] [address] [place] [address] Bilirubin [Mass/Vol] 1.8 mg/dL High 0.0-1.1 [facility] Comment on above: Performed By: #### 2 [id number], [id number], [id number] ####[facility] [address] [place] [address] Bilirubin.direct [Mass/Vol] 0.3 mg/dL Normal 0.0-0.4 [facility] Comment on above: Performed By: #### 2 [id number], [id number], [id number] ####[facility] [address] [place] [address] Bilirubin.indirect [Mass or moles/Vol] 1.5 mg/dL High 0.1-0.9 [facility] Comment on above: Performed By: #### 2 [id number], [id number], [id number] ####[facility] [address] [place] [address] Globulin (S) [Mass/Vol] 2.4 g/dL Normal 1.4-4.0 [facility] Comment on above: Performed By: #### 2 [id number], [id number], [id number] ####[facility] [address] [place] [address] Protein [Mass/Vol] 7.2 g/dL Normal 6.0-7.8 [facility] Comment on above: Performed By: #### 2 [id number], [id number], [id number] ####[facility] [address] [place] [address] Lipase Levelon 09-07-2023 Lipase [Catalytic activity/Vol] 15 U/L Normal 13-58 [facility] Comment on above: Performed By: #### 2 [id number], [id number], [id number] ####[facility] [address] [place] [address] MRI Cholangiogram Pancreatog reza (mrcp)on 09-07-2023 MRI Cholangiogram Pancreatography (mrcp) Exam Date/Time: 09/07/2023 18:46 EST Reason for Exam: Biliary obstruction Report IMPRESSION: SUSPECT APPROXIMATELY 8 X 5 MM DISTAL COMMON DUCT CALCULUS, WITHIN THE LIMITS OF THE STUDY. EXAM: MRI Cholangiogram Pancreatography (MRCP) DATE: 09/07/2023 6:14 PM CLINICAL HISTORY: Biliary obstruction. COMPARISON: Chest, abdomen and pelvis CTAs from earlier 09/07/2023. TECHNIQUE: Multiplanar MR imaging of the abdomen was performed with MRCP protocol. Routine and volume rendered images were obtained on a three-dimensional workstation. FINDINGS: The study is mild to moderately limited by motion. An approximately 8 x 5 mm ovoid filling defect is suggested within the distal common duct on the thick slab volume rendered sequence (image 1 - series 7). There is borderline dilatation of the extra hepatic common duct, which measures approximately to 8 mm in caliber at the alena hepatis. No significant intrahepatic biliary dilatation. No other filling defects are identified elsewhere within the mild to moderately distended gallbladder or biliary system. No significant gallbladder wall thickening, significant inflammation, or pancreatic ductal dilatation. The liver is mildly heterogeneous in signal intensity with morphologic features suggestive of mild cirrhosis. The pancreas, spleen, adrenal glands, kidneys, visualized great vessels, retroperitoneum and bowel are unremarkable. Ordering Provider: Chad Ying FINAL REPORT Dictated: 09/07/2023 7:08 pm Harman Forman MD Signed (Electronic Signature): 09/07/2023 7:08 pm Signed by: Harman Forman MD Transcribed by: CRISTIN Technologist: DESTINI Normal [facility] Monitor Recordon 09-07-2023 Monitor Record [id number] Normal [facility] PT & PTTon 09-07-2023 aPTT Coag (PPP) [Time] 35.8 second(s) Normal 25.1-36.5 [facility] Comment on above: Result Comment: Para meter 15 days - 4 weeks 1 - 5 months 6 - 11 months 1 - 5 years 6 - 10 years 11 - 17 years PTT Mean: 35.4 (27.6-45.6) Mean: 33.5 (24.8-40.7) Mean: 32.4 (25.1-40.7) Mean: 31.6 (24.0-39.2) Mean: 31.6 (26.9-38.7) Mean: 31.0 (24.6-38.4) Pediatric Reference ranges were obtained from a study by Juan F Izaguirre et al. prepared from 1437 samples obtained at 7 different centers using the same coagulation reagent and instrumentation as [facility]. Currently there are no coagulation studies available worldwide for children to 14 days, and no normal ranges. Heparin therapeutic range (represented by Anti-Factor Xa activity of 0.2 - 0.4 U/mL) corresponds to PTT of 56.6 - 109.0 sec. Performed By: #### 1 [id number], [id number], [id number], [id number], [id number], [id number] ####[facility] [address] [place] [address] INR Coag (PPP) [Relative time] 1.18 {INR} Invalid Interpretation Code [facility] Comment on above: Result Comment: INR results are specifically intended to assess patients stabilized on long-term Anticoagulation therapy suggested INR?s ?Less Intensive Anticoagulation? 2.0 ? 3.0 Conventional Range 3.0 ? 4.5 Performed By: #### 1 [id number], [id number], [id number], [id number], [id number], [id number] ####[facility] [address] [place] [address] PT Coag (PPP) [Time] 13.2 second(s) High 9.4-12.5 [facility] Comment on above: Result Comment: 15 d ays - 4 weeks 1 - 5 months 6 -11 months 1 ? 5 years 6 ? 10 years 11 -17 years Mean: 11.2 (9.5 ? 12.6) Mean: 11.0 (9.7 ? 12.8) Mean: 11.0 (9.8 ? 13.0) Mean: 11.3 (9.9 ? 13.4) Mean: 11.7 (10.0 ? 14.6) Mean: 11.8 (10.0 - 14.1) Pediatric Reference ranges were obtained from a study by Juan F Izaguirre et al. prepared from 1437 samples obtained at 7 different centers using the same coagulation reagent and instrumentation as [facility]. Currently there are no coagulation studies available worldwide for children to 14 days, and no normal ranges. Performed By: #### 1 [id number], [id number], [id number], [id number], [id number], [id number], [id number] ####[facility] [address] [place] [address] Pre-Arrival Noteon Pre-Arrival Note Pre-Arrival Summary Name: , mndre Current Date: 09/07/2023 13:55:18 EST Gender: Female Date of : Age: 63 Pre-Arrival Type: EMS ETA: 09/07/2023 14:12:00 EST Primary Care Physician: Presenting Problem: R arm pain/abd pain Pre-Arrival User: Fiorella Cheng RN Referring Source: Location: Completion Date/Time: 09/07/2023 13:42:00 [facility] Emergency Department Pre-Hospital Report Form _ Vital Signs: Pre-Hospital Report: Treatment in Route: Response to Treatment: Misc. Issues: Normal [facility] RAD - MRI Screening Formon 0 09-07-2023 RAD - MRI Screening Form [id number] Normal [facility] RAD - Preliminary Radiology Reporton 09-07-2023 RAD - Preliminary Radiology Report [id number] Normal [facility] Troponin 0 Hr.on 09-07-2023 Troponin 134.30 pg/mL Abnormal 10.10-27.10 [facility] Comment on above: Result Comment: Crit ical Result I_TnIHS:134.3 Called to and read back by: SHON DAVIS at: 09/07/2023 14:50:04 by:[id number] The 95% CI (Confidence Interval) PPV (Positive Predictive Value) for myocardial infarction in females is 38 pg/mL, in males 51 pg/mL. The results should be used in conjunction with clinical conditions of myocardial infarction. (Access High Sensitivity Troponin I Instructions For Use, Number 100, January 2018) Performed By: #### 1 [id number], [id number], [id number] ####[facility] [address] [place] [address] Troponin 3 Hr.on 09-07-2023 Troponin 264.00 pg/mL Abnormal 10.10-27.10 [facility] Comment on above: Result Comment: Crit ical Result Verified by Previous Result Critical Result I_TnIHS:264.0 Called to and read back by: CANDY WILLS at: 09/07/2023 18:20:37 by:[id number] The 95% CI (Confidence Interval) PPV (Positive Predictive Value) for myocardial infarction in females is 38 pg/mL, in males 51 pg/mL. The results should be used in conjunction with clinical conditions of myocardial infarction. (Access High Sensitivity Troponin I Instructions For Use, Number 100, January 2018) Performed By: #### 2 [id number], [id number], [id number] ####[facility] [address] [place] [address] Troponin 6 Hr.on 09-07-2023 Troponin 297.80 pg/mL Abnormal 10.10-27.10 [facility] Comment on above: Result Comment: Crit ical Result Verified by Previous Result Critical Result I_TnIHS:297.8 Called to and read back by: DR. CLEMENTE at: 09/07/2023 20:11:08 by:[id number] The 95% CI (Confidence Interval) PPV (Positive Predictive Value) for myocardial infarction in females is 38 pg/mL, in males 51 pg/mL. The results should be used in conjunction with clinical conditions of myocardial infarction. (Access High Sensitivity Troponin I Instructions For Use, Dwight Webber, January 2018) Performed By: #### 1 [id number] ####[facility] [address] [place] [address] eGFRon 09-07-2023 eGFR 99 mL/min/1.73 m2 Normal >=59 [facility] Comment on above: Order Comment: Order added by Discern Expert. Performed By: #### 1 [id number], [id number], [id number], [id number], [id number] ####[facility] [address] [place] [address] Laboratory - Hematology and Cell countson 08-15-2023 HbA1c (Bld) [Mass fraction] 6.6 % [facility] No Panel Informationon 08-15 [facility] ALPHA-FETOPROTEINon 03-26-20 23 ALPHA-FETOPROTEIN <4 Normal 0 - 9 [facility] Comment on above: Result Comment: AFP testing is performed by chemiluminescent immunoassay using the Siemens Atellica. Values obtained with different analyte methods cannot be used interchangeably. This test can be used as an adjunct in the diagnosis and monitoring of AFP-producing tumors, including non-seminomatous germ cell tumors and hepatocellular carcinomas. Performed By: #### A FP #### [facility] [address] [place] [address] Alpha-fetoprotein serumon AFP [Mass/Vol] ng/mL 0 - 9 [facility] [place] [address] [facility] Work Phone: Comment on above: AFP testing is perfo rmed by chemiluminescent immunoassay using the Siemens Atellica. Values obtained with different analyte methods cannot be used interchangeably. This test can be used as an adjunct in the diagnosis and monitoring of AFP-producing tumors, including non-seminomatous germ cell tumors and hepatocellular carcinomas. BILIRUBIN,DIRECTon 3 Bilirubin.indirect [Mass/Vol] 0.1 mg/dL Normal 0.0 - 0.3 [facility] Comment on above: Performed By: #### D BILI #### [address] [id number] Bilirubin, Serum Direct - Co njugatedon 03-26-2023 Bilirubin.direct [Mass/Vol] 0.1 mg/dL 0.0 - 0.3 [facility] [address] I Work Phone: COMPREHENSIVE PANELon 2022 Albumin [Mass/Vol] 4.1 g/dL Normal 3.4 - 5.0 [facility] Comment on above: Performed By: #### C MP #### [address] [id number] ALP [Catalytic activity/Vol] 76 U/L Normal 33 - 136 [facility] Comment on above: Performed By: #### C MP #### [address] [id number] ALT [Catalytic activity/Vol] 9 U/L Normal 7 - 45 [facility] Comment on above: Result Comment: Giana ents treated with Sulfasalazine may generate falsely decreased results for ALT. Performed By: #### C MP #### [address] [id number] Anion gap [Moles/Vol] 10 mmol/L Normal 10 - 20 [facility] Comment on above: Performed By: #### C MP #### [address] [id number] AST [Catalytic activity/Vol] 16 U/L Normal 9 - 39 [facility] Comment on above: Performed By: #### C MP #### [address] [id number] Bilirubin [Mass/Vol] 0.7 mg/dL Normal 0.0 - 1.2 [facility] Comment on above: Performed By: #### C MP #### [address] [id number] Calcium [Mass/Vol] 9.2 mg/dL Normal 8.6 - 10.3 [facility] Comment on above: Performed By: #### C MP #### [address] [id number] Chloride [Moles/Vol] 103 mmol/L Normal 98 - 107 [facility] Comment on above: Performed By: #### C MP #### [address] [id number] Creatinine [Mass/Vol] 0.65 mg/dL Normal 0.50 - 1.05 [facility] Comment on above: Performed By: #### C MP #### [address] [id number] eGFR FEMALE >90 Normal >90 [facility] Comment on above: Result Comment: CALC ULATIONS OF ESTIMATED GFR ARE PERFORMED USING THE 2020 CKD-EPI STUDY REFIT EQUATION WITHOUT THE RACE VARIABLE FOR THE IDMS-TRACEABLE CREATININE METHODS. https://jasn.asnjournals.org/content/early//ASN.710946 5078 Performed By: #### C MP #### [address] [id number] Glucose [Mass/Vol] 99 mg/dL Normal 74 - 99 [facility] Comment on above: Performed By: #### C MP #### [address] [id number] HCO3 (Bld) [Moles/Vol] 32 mmol/L Normal 21 - 32 [facility] Comment on above: Performed By: #### C MP #### [address] [id number] Potassium [Moles/Vol] 4.5 mmol/L Normal 3.5 - 5.3 [facility] Comment on above: Performed By: #### C MP #### [address] [id number] Protein [Mass/Vol] 6.5 g/dL Normal 6.4 - 8.2 [facility] Comment on above: Performed By: #### C MP #### [address] [id number] Sodium [Moles/Vol] 140 mmol/L Normal 136 - 145 [facility] Comment on above: Performed By: #### C MP #### [address] [id number] Urea nitrogen [Mass/Vol] 22 mg/dL Normal 6 - 23 [facility] Comment on above: Performed By: #### C MP #### [address] [id number] Laboratory - Chemistry and C hemistry - challengeon 03-26-2023 Albumin BCP dye [Mass/Vol] 4.1 g/dL 3.4 - 5.0 [facility] [place] [address] Work Phone: ALP [Catalytic activity/Vol] 76 U/L 33 - 136 [facility] [place] [address] Work Phone: ALT With P-5'-P [Catalytic activity/Vol] 9 U/L 7 - 45 [facility] [place] [address] Work Phone: Comment on above: Patients treated wit h Sulfasalazine may generate falsely decreased results for ALT. Anion gap [Moles/Vol] 10 mmol/L 10 - 20 [facility] [place] [address] Work Phone: AST With P-5'-P [Catalytic activity/Vol] 16 U/L 9 - 39 [facility] [place] [address] Work Phone: Bilirubin [Mass/Vol] 0.7 mg/dL 0.0 - 1.2 [facility] [place] [address] Work Phone: Calcium [Mass/Vol] 9.2 mg/dL 8.6 - 10.3 [facility] [place] [address] Work Phone: Chloride [Moles/Vol] 103 mmol/L 98 - 107 [facility] [place] [address] Work Phone: [phone] CO2 [Moles/Vol] 32 mmol/L 21 - 32 [facility] [place] [address] Work Phone: [phone] Creatinine [Mass/Vol] 0.65 mg/dL See Below [facility] [place] [facility] Work Phone: Comment on above: Reference Range: 0.5 0 - 1.05 Glucose [Mass/Vol] 99 mg/dL 74 - 99 [facility] [place] [facility] Work Phone: [phone] Potassium [Moles/Vol] 4.5 mmol/L 3.5 - 5.3 [facility] [place] [facility] Work Phone: [phone] Protein [Mass/Vol] 6.5 g/dL 6.4 - 8.2 [facility] [place] [facility] Work Phone: [phone] Sodium [Moles/Vol] 140 mmol/L 136 - 145 [facility] [place] [facility] Work Phone: [phone] Urea nitrogen [Mass/Vol] 22 mg/dL 6 - 23 [facility] [place] [facility] Work Phone: [phone] Laboratory - Coagulationon 0 03-26-2023 INR Coag (PPP) [Relative time] 1.2 {INR} above high threshold 0.9 - 1.1 [facility] [place] Work Phone: [phone] PT Coag (PPP) [Time] 13.3 s above high threshold 9.8 - 12.8 [facility] [place] [facility] Work Phone: Comment on above: Note new reference r farhad as of 12/19/2022 at 10:00am. No Panel Informationon 03-26 >90 >90 [facility] [place] [address] Work Phone: Comment on above: CALCULATIONS OF PHILIP MATED GFR ARE PERFORMED USING THE 2020 CKD-EPI STUDY REFIT EQUATION WITHOUT THE RACE VARIABLE FOR THE IDMS-TRACEABLE CREATININE METHODS.https://jasn.asnjournals.org/content/early/ N.2705111200 PT/INRon 03-26-2023 PT Coag (PPP) [Time] 13.3 s High 9.8 - 12.8 [facility] Comment on above: Result Comment: Note new reference range as of 12/19/2022 at 10:00am. Performed By: #### P TINR #### [address] [id number] PT, INR 1.2 High 0.9 - 1.1 [facility] Comment on above: Performed By: #### P TINR #### [address] [id number] Radiologyon 03-26-2023 US Liver Normal [facility] [place] [address] Work Phone: US LIVERon 03-26-2023 US LIVER Patient Name: SOUMYA ABDI STUDY: US LIVER; 03/26/2023 11:56 am INDICATION: HCC SURVEILLANCE Z79.631: Methotrexate, intermodal customer service, current use K76.0: Fatty (change of) liver, not elsewhere classified K74.60: Cirrhosis. COMPARISON: None. ACCESSION NUMBER(S): [id number] ORDERING CLINICIAN: JUAN F SAVAGE TECHNIQUE: Multiple images of the right upper quadrant were obtained. Mena scale, color Doppler and spectral Doppler waveform analysis was performed. FINDINGS: LIVER: Liver measures up to 16.6 cm in length and demonstrates diffusely coarsened hepatic echotexture and mildly diffuse increased hepatic echogenicity. No suspicious hepatic lesions are seen. GALLBLADDER: The gallbladder is nondistended, and demonstrates no evidence of gallstones, wall thickening or surrounding fluid. Sonographic Stephenson's sign is negative. BILIARY SYSTEM: No evidence of intra or extrahepatic biliary dilatation is identified; the common bile duct measures 9 mm. PANCREAS: The visualized pancreas is unremarkable in appearance. RIGHT KIDNEY: The right kidney measures 10.8 cm in length. Nonobstructing nephrolithiasis measuring up to 6 mm. Hypoechoic lesion of the right kidney lower pole measuring up to 1.4 x 1.2 x 1.2 cm, nonspecific, however statistically likely representing an angiomyolipoma.. IMPRESSION: Coarsened hepatic echotexture suggestive of cirrhotic hepatic morphology. No suspicious hepatic lesions are seen. Prominent common bile duct at 9 mm. Correlate with liver function tests. MRCP may be obtained for further assessment. Non-obstructing right-sided nephrolithiasis. Indeterminate hypoechoic lesion of the kidney measures 1.4 cm, likely representing angiomyolipoma. MACRO: None Electronically signed by: DEVANTE MOTTA MD Normal [facility] Alanine aminotransferase [En zymatic activity/volume] in Serum or PlasmaOrdered By: Gaetano Torres on 03-13-2023 ALT [Catalytic activity/Vol] 11 U/L 7-52 [facility] Albumin [Mass/volume] in Ser um or Plasma by Bromocresol green (BCG) dye binding methoOrdered By: Gaetano Torres on 03-13-2023 Albumin BCG dye [Mass/Vol] 4.3 g/dL 3.5-5.7 [facility] Alkaline phosphatase [Enzyma tic activity/volume] in Serum or PlasmaOrdered By: Gaetano Torres on 03-13-2023 ALP [Catalytic activity/Vol] 82 U/L 34-104 [facility] Aspartate aminotransferase [ Enzymatic activity/volume] in Serum or PlasmaOrdered By: Gaetano Torres on 03-13-2023 AST [Catalytic activity/Vol] 17 U/L 13-39 [facility] Basophils Auto (Bld) [#/Vol] Ordered By: Gaetano Torres on 03-13-2023 Basophils (Bld) [#/Vol] 0.1 10*3/uL 0.0-0.2 [facility] Basophils/100 WBC Auto (Bld) Ordered By: Gaetano Torres on 03-13-2023 Basophils/100 WBC (Bld) 1.2 % . [facility] Bilirubin.direct [Mass/volum e] in Serum or PlasmaOrdered By: Gaetano Torres on 03-13-2023 Bilirubin.direct [Mass/Vol] 0.10 mg/dL 0.03-0.18 [facility] Bilirubin.total [Mass/volume ] in Serum or PlasmaOrdered By: Gaetano Torres on 03-13-2023 Bilirubin [Mass/Vol] 0.5 mg/dL 0.3-1.0 [facility] Complete Blood Count Auto Di ffon 03-13-2023 Basophils (Bld) [#/Vol] 0.1 10*3/uL Normal 0.0-0.2 [facility] Comment on above: Performed By: #### C REAT, ESR, CBC, HEPATIC #### [facility] [address] Basophils/100 WBC (Bld) 1.2 % Normal . [facility] Comment on above: Performed By: #### C REAT, ESR, CBC, HEPATIC #### [facility] [address] [place] [address] [place] Eosinophils (Bld) [#/Vol] 0.2 10*3/uL Normal 0.0-0.45 [facility] Comment on above: Performed By: #### C REAT, ESR, CBC, HEPATIC #### [facility] [address] Eosinophils/100 WBC (Bld) 3.2 % Normal . [facility] Comment on above: Performed By: #### C REAT, ESR, CBC, HEPATIC #### [facility] [address] Erythrocyte distribution width (RBC) [Ratio] 14.1 % Normal 11.9-15.3 [facility] Comment on above: Performed By: #### C REAT, ESR, CBC, HEPATIC #### [facility] [address] Hematocrit (Bld) [Volume fraction] 40.5 % Normal 34.0-46.4 [facility] Comment on above: Performed By: #### C REAT, ESR, CBC, HEPATIC #### [facility] [address] [place] [address] [place] Hemoglobin (Bld) [Mass/Vol] 13.5 g/dL Normal 11.8-15.4 [facility] Comment on above: Performed By: #### C REAT, ESR, CBC, HEPATIC #### [address] Lymphocytes (Bld) [#/Vol] 1.0 10*3/uL Normal 1.00-4.8 [facility] Comment on above: Performed By: #### C REAT, ESR, CBC, HEPATIC #### [address] Lymphocytes/100 WBC (Bld) 20.3 % Normal . [facility] Comment on above: Performed By: #### C REAT, ESR, CBC, HEPATIC #### [address] MCH (RBC) [Entitic mass] 28.7 pg Normal 24.7-34.3 [facility] Comment on above: Performed By: #### C REAT, ESR, CBC, HEPATIC #### [address] MCV (RBC) [Entitic vol] 86.3 fL Normal 80-100 [facility] Comment on above: Performed By: #### C REAT, ESR, CBC, HEPATIC #### [address] Mean Corpuscular HGB Conc 33.2 g/dL Normal 32.0-35.0 [facility] Comment on above: Performed By: #### C REAT, ESR, CBC, HEPATIC #### [address] Monocytes (Bld) [#/Vol] 0.4 10*3/uL Normal 0.0-0.8 [facility] Comment on above: Performed By: #### C REAT, ESR, CBC, HEPATIC #### [address] Monocytes/100 WBC (Bld) 8.6 % Normal . [facility] Comment on above: Performed By: #### C REAT, ESR, CBC, HEPATIC #### [address] Neutrophils (Bld) [#/Vol] 3.3 10*3/uL Normal 1.8-7.7 [facility] Comment on above: Performed By: #### C REAT, ESR, CBC, HEPATIC #### [address] Neutrophils/100 WBC (Bld) 66.7 % Normal . [facility] Comment on above: Performed By: #### C REAT, ESR, CBC, HEPATIC #### [address] NRBC% 0.0 /100{WBC} Normal 0-0.5 [facility] Comment on above: Performed By: #### C REAT, ESR, CBC, HEPATIC #### [address] Platelet mean volume (Bld) [Entitic vol] 9.7 fL Normal 6.3-10.7 [facility] Comment on above: Performed By: #### C REAT, ESR, CBC, HEPATIC #### [address] Platelets (Bld) [#/Vol] 120 10*3/uL Low 150-450 [facility] Comment on above: Performed By: #### C REAT, ESR, CBC, HEPATIC #### [address] RBC (Bld) [#/Vol] 4.69 10*6/uL Normal 3.60-5.00 [facility] Comment on above: Performed By: #### C REAT, ESR, CBC, HEPATIC #### [address] WBC (Bld) [#/Vol] 4.9 10*3/uL Normal 3.8-11.6 [facility] Comment on above: Performed By: #### C REAT, ESR, CBC, HEPATIC #### [place] [address] [place] Creatinineon 03-13-2023 Creatinine [Mass/Vol] 0.63 mg/dL Normal 0.60-1.20 [facility] Comment on above: Performed By: #### C REAT, ESR, CBC, HEPATIC #### [facility] [address] GFR/1.73 sq M.predicted MDRD (S/P/Bld) [Vol rate/Area] mL/min/{1.73_m2} Normal [facility] Comment on above: Result Comment: PERF ORMED BY: [place] [address] PATHOLOGIST [employer]OYEE [employer]AC[employer]IST STEPHENIE SULLIVAN M.D. Performed By: #### C REAT, ESR, CBC, HEPATIC #### [address] Creatinine [Mass/volume] in Serum or PlasmaOrdered By: Gaetano Torres on 03-13-2023 Creatinine [Mass/Vol] 0.63 mg/dL 0.60-1.20 [facility] Eosinophils Auto (Bld) [#/Vo l]Ordered By: Gaetano Torres on 03-13-2023 Eosinophils (Bld) [#/Vol] 0.2 10*3/uL 0.0-0.45 [facility] Eosinophils/100 WBC Auto (Bl d)Ordered By: Gaetano Torres on 03-13-2023 Eosinophils/100 WBC (Bld) 3.2 % . [facility] Erythrocyte Sedimentation Ra dae 03-13-2023 ESR (Bld) [Velocity] 13 mm/h Normal 0-29 [facility] Comment on above: Result Comment: PERF ORMED BY: [place] [address] PATHOLOGIST EMPLOYEE PLACEMENT SPECIALIST STEPHENIE SULLIVAN M.D. Performed By: #### C REAT, ESR, CBC, HEPATIC #### [place] [id number] [facility] Erythrocyte distribution wid th Auto (RBC) [Ratio]Ordered By: Gaetano Torres on 09-12-2023 Erythrocyte distribution width (RBC) [Ratio] 14.1 % 11.9-15.3 [facility] Erythrocyte sedimentation ra te by Photometric methodOrdered By: Gaetano Torres on 03-13-2023 ESR Photometric method (Bld) [Velocity] 13 mm/hr 0-29 [facility] Globulin Calc (S) [Mass/Vol] Ordered By: Gaetano Torres on 03-13-2023 Globulin (S) [Mass/Vol] 2.2 g/dL [facility] Hematocrit Auto (Bld) [Volum e fraction]Ordered By: Gaetano Torres on 03-13-2023 Hematocrit (Bld) [Volume fraction] 40.5 % 34.0-46.4 [facility] Hemoglobin [Mass/volume] in BloodOrdered By: Gaetano Torres on 03-13-2023 Hemoglobin (Bld) [Mass/Vol] 13.5 g/dL 11.8-15.4 [facility] Hepatic Panelon 03-13-2023 Albumin [Mass/Vol] 4.3 g/dL Normal 3.5-5.7 [facility] Comment on above: Performed By: #### C REAT, ESR, CBC, HEPATIC #### [facility] [address] Albumin/Globulin [Mass ratio] 2.0 {ratio} Normal [facility] Comment on above: Performed By: #### C REAT, ESR, CBC, HEPATIC #### [facility] [address] [place] [id number] [place] ALP [Catalytic activity/Vol] 82 U/L Normal 34-104 [facility] Comment on above: Performed By: #### C REAT, ESR, CBC, HEPATIC #### [facility] [address] [place] [id number] [place] ALT [Catalytic activity/Vol] 11 U/L Normal 7-52 [facility] Comment on above: Performed By: #### C REAT, ESR, CBC, HEPATIC #### [facility] [address] [place] [id number] [facility] AST [Catalytic activity/Vol] 17 U/L Normal 13-39 [facility] Comment on above: Performed By: #### C REAT, ESR, CBC, HEPATIC #### [facility] [address] Bilirubin [Mass/Vol] 0.5 mg/dL Normal 0.3-1.0 [facility] Comment on above: Performed By: #### C REAT, ESR, CBC, HEPATIC #### [facility] [address] Bilirubin,Indirect 0.4 mg/dL Normal [facility] Comment on above: Performed By: #### C REAT, ESR, CBC, HEPATIC #### [facility] [address] Bilirubin.indirect [Mass/Vol] 0.10 mg/dL Normal 0.03-0.18 [facility] Comment on above: Performed By: #### C REAT, ESR, CBC, HEPATIC #### [facility] [address] Globulin (S) [Mass/Vol] 2.2 g/dL Normal [facility] Comment on above: Performed By: #### C REAT, ESR, CBC, HEPATIC #### [facility] [address] Protein [Mass/Vol] 6.5 g/dL Normal 6.4-8.9 [facility] Comment on above: Performed By: #### C REAT, ESR, CBC, HEPATIC #### [facility] [address] Leukocytes [#/volume] correc devonte for nucleated erythrocytes in Blood by Automated counOrdered By: Gaetano Torres on 03-13-2023 WBC corrected for nucl RBC Auto (Bld) [#/Vol] 4.9 10*3/uL 3.8-11.6 [facility] Lymphocytes Auto (Bld) [#/Vo l]Ordered By: Gaetano Torres on 03-13-2023 Lymphocytes (Bld) [#/Vol] 1.0 10*3/uL 1.00-4.8 [facility] Lymphocytes/100 WBC Auto (Bl d)Ordered By: Gaetano Torres on 03-13-2023 Lymphocytes/100 WBC (Bld) 20.3 % . [facility] MCH Auto (RBC) [Entitic mass ]Ordered By: Gaetano Torres on 03-13-2023 MCH (RBC) [Entitic mass] 28.7 pg 24.7-34.3 [facility] MCHC Auto (RBC) [Mass/Vol]Or dered By: Gaetano Torres on 03-13-2023 MCHC (RBC) [Mass/Vol] 33.2 g/dL 32.0-35.0 [facility] MCV Auto (RBC) [Entitic vol] Ordered By: Gaetano Torres on 03-13-2023 MCV (RBC) [Entitic vol] 86.3 fL 80-100 [facility] Monocytes Auto (Bld) [#/Vol] Ordered By: Gaetano Torres on 03-13-2023 Monocytes (Bld) [#/Vol] 0.4 10*3/uL 0.0-0.8 [facility] Monocytes/100 WBC Auto (Bld) Ordered By: Gaetano Torres on 03-13-2023 Monocytes/100 WBC (Bld) 8.6 % . [facility] Neutrophils Auto (Bld) [#/Vo l]Ordered By: Gaetano Torres on 03-13-2023 Neutrophils (Bld) [#/Vol] 3.3 10*3/uL 1.8-7.7 [facility] Neutrophils/100 WBC Auto (Bl d)Ordered By: Gaetano Torres on 03-13-2023 Neutrophils/100 WBC (Bld) 66.7 % . [facility] No Panel InformationOrdered By: Gaetano Torres on 03-13-2023 Estimated GFR (CKD-EPI) > 60.0 mL/Min [facility] Creatinine Clearance (Chem N/A [facility] Nucleated erythrocytes [Pres ence] in Blood by Automated countOrdered By: Gaetano Torres on 03-13-2023 Nucleated RBC Auto Ql (Bld) 0.0 /100{WBC} 0-0.5 [facility] Platelet mean volume Auto (B ld) [Entitic vol]Ordered By: Gaetano Torres on 03-13-2023 Platelet mean volume (Bld) [Entitic vol] 9.7 fL 6.3-10.7 [facility] Platelets Auto (Bld) [#/Vol] Ordered By: Gaetano Torres on 03-13-2023 Platelets (Bld) [#/Vol] 120 10*3/uL 150-450 [facility] Protein [Mass/volume] in Ser um or PlasmaOrdered By: Gaetano Torres on 03-13-2023 Protein [Mass/Vol] 6.5 g/dL 6.4-8.9 [facility] RBC Auto (Bld) [#/Vol]Ordere d By: Gaetano Torres on 03-13-2023 RBC (Bld) [#/Vol] 4.69 10*6/uL 3.60-5.00 [facility] Serum or plasma albumin/glob ulin mass ratioOrdered By: Gaetano Torres on 03-13-2023 Albumin/Globulin [Mass ratio] 2.0 {ratio} [facility] Serum or plasma non-glucuron idated bilirubin measurement (mass/volume)Ordered By: Gaetano Torres on 03-13-2023 Bilirubin.indirect [Mass/Vol] 0.4 mg/dL [facility] WBC Auto (Bld) [#/Vol]Ordere d By: Gaetano Torres on 03-13-2023 WBC (Bld) [#/Vol] 4.9 10*3/uL 3.8-11.6 [facility] Complete Blood Count Auto Di ffon 12-12-2022 Basophils (Bld) [#/Vol] 0.1 10*3/uL Normal 0.0-0.2 [facility] Comment on above: Performed By: #### C REAT, HEPATIC, CBC, ESR #### [facility] [address] [place] [address] [place] Basophils/100 WBC (Bld) 1.2 % Normal . [facility] Comment on above: Performed By: #### C REAT, HEPATIC, CBC, ESR #### [facility] [address] [place] [address] [place] Eosinophils (Bld) [#/Vol] 0.2 10*3/uL Normal 0.0-0.45 [facility] Comment on above: Performed By: #### C REAT, HEPATIC, CBC, ESR #### [address] Eosinophils/100 WBC (Bld) 4.2 % Normal . [facility] Comment on above: Performed By: #### C REAT, HEPATIC, CBC, ESR #### [address] Erythrocyte distribution width (RBC) [Ratio] 13.4 % Normal 11.9-15.3 [facility] Comment on above: Performed By: #### C REAT, HEPATIC, CBC, ESR #### [address] Hematocrit (Bld) [Volume fraction] 43.2 % Normal 34.0-46.4 [facility] Comment on above: Performed By: #### C REAT, HEPATIC, CBC, ESR #### [address] Hemoglobin (Bld) [Mass/Vol] 14.6 g/dL Normal 11.8-15.4 [facility] Comment on above: Performed By: #### C REAT, HEPATIC, CBC, ESR #### [address] Lymphocytes (Bld) [#/Vol] 1.2 10*3/uL Normal 1.00-4.8 [facility] Comment on above: Performed By: #### C REAT, HEPATIC, CBC, ESR #### [address] Lymphocytes/100 WBC (Bld) 21.6 % Normal . [facility] Comment on above: Performed By: #### C REAT, HEPATIC, CBC, ESR #### [address] MCH (RBC) [Entitic mass] 27.9 pg Normal 24.7-34.3 [facility] Comment on above: Performed By: #### C REAT, HEPATIC, CBC, ESR #### [place] [address] [place] MCV (RBC) [Entitic vol] 82.8 fL Normal 80-100 [facility] Comment on above: Performed By: #### C REAT, HEPATIC, CBC, ESR #### [address] Mean Corpuscular HGB Conc 33.7 g/dL Normal 32.0-35.0 [facility] Comment on above: Performed By: #### C REAT, HEPATIC, CBC, ESR #### [address] Monocytes (Bld) [#/Vol] 0.5 10*3/uL Normal 0.0-0.8 [facility] Comment on above: Performed By: #### C REAT, HEPATIC, CBC, ESR #### [address] Monocytes/100 WBC (Bld) 8.9 % Normal . [facility] Comment on above: Performed By: #### C REAT, HEPATIC, CBC, ESR #### [address] Neutrophils (Bld) [#/Vol] 3.5 10*3/uL Normal 1.8-7.7 [facility] Comment on above: Performed By: #### C REAT, HEPATIC, CBC, ESR #### [address] Neutrophils/100 WBC (Bld) 64.1 % Normal . [facility] Comment on above: Performed By: #### C REAT, HEPATIC, CBC, ESR #### [address] NRBC% 0.2 /100{WBC} Normal 0-0.5 [facility] Comment on above: Performed By: #### C REAT, HEPATIC, CBC, ESR #### [address] Platelet mean volume (Bld) [Entitic vol] 10.1 fL Normal 6.3-10.7 [facility] Comment on above: Performed By: #### C REAT, HEPATIC, CBC, ESR #### [address] Platelets (Bld) [#/Vol] 127 10*3/uL Low 150-450 [facility] Comment on above: Performed By: #### C REAT, HEPATIC, CBC, ESR #### [address] RBC (Bld) [#/Vol] 5.23 10*6/uL High 3.60-5.00 [facility] Comment on above: Performed By: #### C REAT, HEPATIC, CBC, ESR #### [address] WBC (Bld) [#/Vol] 5.5 10*3/uL Normal 3.8-11.6 [facility] Comment on above: Performed By: #### C REAT, HEPATIC, CBC, ESR #### [address] Creatinineon 12-12-2022 Creatinine [Mass/Vol] 0.65 mg/dL Normal 0.60-1.20 [facility] Comment on above: Performed By: #### C REAT, HEPATIC, CBC, ESR #### [address] GFR/1.73 sq M.predicted MDRD (S/P/Bld) [Vol rate/Area] mL/min/{1.73_m2} Normal [facility] Comment on above: Result Comment: PERF ORMED BY: [place] [address] PATHOLOGIST [employer]OY[employer]IST STEPHENIE SULLIVAN M.D. Performed By: #### C REAT, HEPATIC, CBC, ESR #### [address] Erythrocyte Sedimentation Ra dae 12-12-2022 ESR (Bld) [Velocity] 12 mm/h Normal 0-29 [facility] Comment on above: Result Comment: PERF ORMED BY: [address] [id number] PATHOLOGIST EMPLOYEE PLACEMENT SPECIALIST STEPHENIE SULLIVAN M.D. Performed By: #### C REAT, ESR, CBC, HEPATIC #### [address] Hepatic Panelon 12-12-2022 Albumin [Mass/Vol] 4.4 g/dL Normal 3.5-5.7 [facility] Comment on above: Performed By: #### C REAT, HEPATIC, CBC, ESR #### [address] Albumin/Globulin [Mass ratio] 1.8 {ratio} Normal [facility] Comment on above: Performed By: #### C REAT, HEPATIC, CBC, ESR #### [address] ALP [Catalytic activity/Vol] 69 U/L Normal 34-104 [facility] Comment on above: Performed By: #### C REAT, HEPATIC, CBC, ESR #### [address] ALT [Catalytic activity/Vol] 11 U/L Normal 7-52 [facility] Comment on above: Performed By: #### C REAT, HEPATIC, CBC, ESR #### [address] AST [Catalytic activity/Vol] 19 U/L Normal 13-39 [facility] Comment on above: Performed By: #### C REAT, HEPATIC, CBC, ESR #### [address] Bilirubin [Mass/Vol] 0.5 mg/dL Normal 0.3-1.0 [facility] Comment on above: Performed By: #### C REAT, HEPATIC, CBC, ESR #### [address] Bilirubin,Indirect 0.4 mg/dL Normal [facility] Comment on above: Performed By: #### C REAT, HEPATIC, CBC, ESR #### [address] Bilirubin.indirect [Mass/Vol] 0.10 mg/dL Normal 0.03-0.18 [facility] Comment on above: Performed By: #### C REAT, HEPATIC, CBC, ESR #### [facility] [address] Globulin (S) [Mass/Vol] 2.5 g/dL Normal [facility] Comment on above: Performed By: #### C REAT, HEPATIC, CBC, ESR #### [facility] [address] Protein [Mass/Vol] 6.9 g/dL Normal 6.4-8.9 [facility] Comment on above: Performed By: #### C REAT, HEPATIC, CBC, ESR #### [facility] [address] Alanine aminotransferase [En zymatic activity/volume] in Serum or PlasmaOrdered By: Gaetano Torres on 11-07-2022 ALT [Catalytic activity/Vol] 46 U/L 7-52 [facility] Albumin [Mass/volume] in Ser um or Plasma by Bromocresol green (BCG) dye binding methoOrdered By: Gaetano Torres on 11-07-2022 Albumin BCG dye [Mass/Vol] 4.5 g/dL 3.5-5.7 [facility] Alkaline phosphatase [Enzyma tic activity/volume] in Serum or PlasmaOrdered By: Gaetano Torres on 11-07-2022 ALP [Catalytic activity/Vol] 121 U/L 34-104 [facility] Aspartate aminotransferase [ Enzymatic activity/volume] in Serum or PlasmaOrdered By: Gaetano Torres on 11-07-2022 AST [Catalytic activity/Vol] 46 U/L 13-39 [facility] Basophils Auto (Bld) [#/Vol] Ordered By: Gaetano Torres on 11-07-2022 Basophils (Bld) [#/Vol] 0.1 10*3/uL 0.0-0.2 [facility] Basophils/100 WBC Auto (Bld) Ordered By: Gaetano Torres on 11-07-2022 Basophils/100 WBC (Bld) 1.0 % . [facility] Bilirubin.direct [Mass/volum e] in Serum or PlasmaOrdered By: Gaetano Torres on 11-07-2022 Bilirubin.direct [Mass/Vol] 0.10 mg/dL 0.03-0.18 [facility] Bilirubin.total [Mass/volume ] in Serum or PlasmaOrdered By: Gaetano Torres on 11-07-2022 Bilirubin [Mass/Vol] 0.7 mg/dL 0.3-1.0 [facility] Creatinine [Mass/volume] in Serum or PlasmaOrdered By: Gaetano Torres on 11-07-2022 Creatinine [Mass/Vol] 0.45 mg/dL 0.60-1.20 [facility] Eosinophils Auto (Bld) [#/Vo l]Ordered By: Gaetano Torres on 11-07-2022 Eosinophils (Bld) [#/Vol] 0.3 10*3/uL 0.0-0.45 [facility] Eosinophils/100 WBC Auto (Bl d)Ordered By: Gaetano Torres on 11-07-2022 Eosinophils/100 WBC (Bld) 6.5 % . [facility] Erythrocyte distribution wid th Auto (RBC) [Ratio]Ordered By: Gaetano Torres on 11-07-2022 Erythrocyte distribution width (RBC) [Ratio] 13.6 % 11.9-15.3 [facility] Erythrocyte sedimentation ra te by Photometric methodOrdered By: Gaetano Torres on 11-07-2022 ESR Photometric method (Bld) [Velocity] 43 mm/hr 0-29 [facility] Globulin Calc (S) [Mass/Vol] Ordered By: Gaetano Torres on 11-07-2022 Globulin (S) [Mass/Vol] 2.2 g/dL [facility] Hematocrit Auto (Bld) [Volum e fraction]Ordered By: Gaetano Torres on 11-07-2022 Hematocrit (Bld) [Volume fraction] 40.2 % 34.0-46.4 [facility] Hemoglobin [Mass/volume] in BloodOrdered By: Gaetano Torres on 11-07-2022 Hemoglobin (Bld) [Mass/Vol] 13.3 g/dL 11.8-15.4 [facility] Leukocytes [#/volume] correc devonte for nucleated erythrocytes in Blood by Automated counOrdered By: Gaetano Torres on 11-07-2022 WBC corrected for nucl RBC Auto (Bld) [#/Vol] 5.2 10*3/uL 3.8-11.6 [facility] Lymphocytes Auto (Bld) [#/Vo l]Ordered By: Gaetano Torres on 11-07-2022 Lymphocytes (Bld) [#/Vol] 0.9 10*3/uL 1.00-4.8 [facility] Lymphocytes/100 WBC Auto (Bl d)Ordered By: Gaetano Torres on 11-07-2022 Lymphocytes/100 WBC (Bld) 16.8 % . [facility] MCH Auto (RBC) [Entitic mass ]Ordered By: Gaetano Torres on 11-07-2022 MCH (RBC) [Entitic mass] 28.6 pg 24.7-34.3 [facility] MCHC Auto (RBC) [Mass/Vol]Or dered By: Gaetano Torres on 11-07-2022 MCHC (RBC) [Mass/Vol] 33.0 g/dL 32.0-35.0 [facility] MCV Auto (RBC) [Entitic vol] Ordered By: Gaetano Torres on 11-07-2022 MCV (RBC) [Entitic vol] 86.6 fL 80-100 [facility] Monocytes Auto (Bld) [#/Vol] Ordered By: Gaetano Torres on 11-07-2022 Monocytes (Bld) [#/Vol] 0.5 10*3/uL 0.0-0.8 [facility] Monocytes/100 WBC Auto (Bld) Ordered By: Gaetano Torres on 11-07-2022 Monocytes/100 WBC (Bld) 8.9 % . [facility] Neutrophils Auto (Bld) [#/Vo l]Ordered By: Gaetano Torres on 11-07-2022 Neutrophils (Bld) [#/Vol] 3.5 10*3/uL 1.8-7.7 [facility] Neutrophils/100 WBC Auto (Bl d)Ordered By: Gaetano Torres on 11-07-2022 Neutrophils/100 WBC (Bld) 66.8 % . [facility] No Panel InformationOrdered By: Gaetano Torres on 11-07-2022 Estimated GFR (CKD-EPI) > 60.0 mL/Min [facility] Creatinine Clearance (Chem N/A [facility] Nucleated erythrocytes [Pres ence] in Blood by Automated countOrdered By: Gaetano Torres on 11-07-2022 Nucleated RBC Auto Ql (Bld) 0.1 /100{WBC} 0-0.5 [facility] Platelet mean volume Auto (B ld) [Entitic vol]Ordered By: Gaetano Torres on 11-07-2022 Platelet mean volume (Bld) [Entitic vol] 9.1 fL 6.3-10.7 [facility] Platelets Auto (Bld) [#/Vol] Ordered By: Gaetano Trores on 11-07-2022 Platelets (Bld) [#/Vol] 127 10*3/uL 150-450 [facility] Protein [Mass/volume] in Ser um or PlasmaOrdered By: Gaetano Torres on 11-07-2022 Protein [Mass/Vol] 6.7 g/dL 6.4-8.9 [facility] RBC Auto (Bld) [#/Vol]Ordere d By: Gaetano Torres on 11-07-2022 RBC (Bld) [#/Vol] 4.64 10*6/uL 3.60-5.00 [facility] Serum or plasma albumin/glob ulin mass ratioOrdered By: Gaetano Torres on 11-07-2022 Albumin/Globulin [Mass ratio] 2.0 {ratio} [facility] Serum or plasma non-glucuron idated bilirubin measurement (mass/volume)Ordered By: Gaetano Torres on 11-07-2022 Bilirubin.indirect [Mass/Vol] 0.6 mg/dL [facility] WBC Auto (Bld) [#/Vol]Ordere d By: Gaetano Torres on 11-07-2022 WBC (Bld) [#/Vol] 5.2 10*3/uL 3.8-11.6 [facility] BNPon 09-29-2022 Natriuretic peptide B (Bld) [Mass/Vol] 46044.0 pg/mL Critically high <=900.[address] [facility] Comment on above: Performed By: #### P OCGLUC #### [facility] [address] [address] ABD/PELV W CONon 09-30-[address] ABD/PELV W CON EXAMINATION: CT ABD/ PELV W CON HISTORY: GENERALIZED ABDOMINAL PAIN COMPARISON: CTA chest, 09/28/2022, and CT abdomen pelvis, 04/13/2020. TECHNIQUE: IV contrast enhanced CT imaging of the abdomen and pelvis was performed using 100 mL of Omnipaque 350 intravenous contrast. Sagittal and coronal reconstructions are provided. Dose reduction techniques were achieved by using automated exposure control and/or adjustment of mA and/or kV according to patient size and/or use of iterative reconstruction technique. FINDINGS: CT ABDOMEN: There are small layering bilateral pleural effusions with posterior lower lobe atelectasis and mildly increased interstitial markings at the lung bases. Cardiac size is normal. There is no pericardial effusion. Coronary arterial calcifications are present. Cirrhotic liver morphology appears unchanged, with mild portal venous hypertension seen as a recanalized umbilical vein, mild proximal perigastric varices, and mild splenomegaly, unchanged. The gallbladder is unremarkable. There is diffuse age-related atrophy of the pancreas. The adrenal glands are normal in appearance. There are bilateral renal cortical cysts, measuring up to 1.3 cm in the lateral lower pole of the right kidney. The kidneys are otherwise unremarkable. There are fairly dense aortic and iliac calcifications without aneurysm. The nonenhanced stomach and small bowel appear unremarkable. CT PELVIS: A normal appendix is seen on image 80. The pelvic small bowel loops and urinary bladder are unremarkable. Prior hysterectomy is noted. There is a normal volume of stool and gas in the colon. No inflammatory fat stranding, free fluid, loculated fluid or free air is seen in the abdomen or pelvis. There is advanced degenerative disc disease at L5-S1 with bilateral neural foraminal narrowing, left greater than right. There is vacuum disc formation at L3-L4 and L4-L5. Diffuse lumbar spondylosis is noted. No acute osseous abnormality or suspicious bony lesion is seen. IMPRESSION: 1. No acute findings in the abdomen or pelvis. Please reference today's separately dictated CT chest report regarding lower thoracic findings. 2. Hepatic cirrhosis and mild portal venous hypertension, unchanged. Electronically authenticated by: CHEVY JONAS Date: 2022-09-29 00:[address] [facility] CTA CHEST WO W CONon 023 CTA CHEST WO W CON EXAMINATION: CTA [facility] ST WO W CON HISTORY: Pulmonary embolism COMPARISON: CTA chest, 03/22/2021, and CT abdomen pelvis, 09/28/2022. TECHNIQUE: CT angiography of the pulmonary arteries following the administration of 100 mL of Omnipaque 350 intravenous contrast. Coronal and sagittal MIP (maximum intensity projection) images were performed. Dose reduction techniques were achieved by using automated exposure control and/or adjustment of mA and/or kV according to patient size and/or use of iterative reconstruction technique. FINDINGS: There is excellent enhancement of the pulmonary arteries. No acute pulmonary embolism is seen. Cardiac size is normal. Coronary arterial calcifications are present. There is no pericardial effusion. Mild aortic calcifications are noted without dissection or aneurysm. The thyroid gland is normal in appearance. There are fairly small layering bilateral pleural effusions. There is adjacent atelectasis in the posterior lower lobes. Mild central bronchial wall thickening is noted. There is mild centrilobular emphysema. No acute osseous findings are seen in the chest. There is a mild upper thoracic levoscoliosis with multilevel thoracic spondylosis. Anterior fusion hardware is seen in the cervical spine. IMPRESSION: 1. No acute pulmonary embolism or aortic dissection. 2. Bronchial wall thickening compatible with bronchitis or possibly reactive airways disease, with small layering bilateral pleural effusions and mild posterior lower lobe atelectasis, new since the prior exam. No additional acute findings in the chest. Please reference today's separately dictated CT abdomen and pelvis report regarding upper abdominal findings. 3. Mild pulmonary emphysema. Electronically authenticated by: CHEVY JONAS Date: 2022-09-29 00:[address] [facility] LACTATE/LACTIC ACIDon 2022 Lactate [Moles/Vol] 2.5 mmol/L Critically high 0.4-2.[address] [facility] Comment on above: Performed By: #### D DIM #### [facility] [address] [place] [address] Dr. Jd Humphrey TROPONIN, HIGH SENSITIVITYon 09-29-2022 HSTROP 5646.2 pg/mL Critically high 4.0-51.[address] [facility] Comment on above: Result Comment: CUT- OFF POINTS HAVE BEEN ESTABLISHED BASED ON THE FOURTH UNIVERSAL DEFINITIONS OF MYOCARDIAL INFARCTION. THE UPPER REFERENCE LIMIT (URL) OF TROPONIN, DEFINED THE 99TH PERCENTILE OF cTnI DISTRIBUTION IN A REFERENCE POPULATION, HAS BEEN CONFIRMED THE DECISION THRESHOLD FOR [place] DIAGNOSIS. Performed By: #### D DIM #### [facility] [address] [place] [address] Dr. Jd Humphrey XR CHEST 1 Von 09-29-2022 XR CHEST 1 V EXAM: Chest x-ray HISTORY: . NAUSEA WITH VOMITING, UNSPECIFIED . COMPARISON: 03/21/2021 TECHNIQUE: Single view of the chest FINDINGS: Heart and vascularity are unremarkable. IMPRESSION: Bibasilar atelectasis versus early infiltrates. No consolidation. Electronically authenticated by: TAMIKO NUNES Date: 2022-09-28 22:20 Normal [facility] CBC AUTO DIFFon 09-28-2022 BASO # 0.0 103/ul Normal 0.0-0.1 [facility] Comment on above: Performed By: #### C VDTBH #### [facility] [address] [place] [address] Dr. Jd Humphrey Basophils/100 WBC (Bld) 0.2 % Normal 0.2-2.0 [facility] Comment on above: Performed By: #### C VDTBH #### [facility] [address] [place] [address] Dr. Jd Humphrey EO # 0.1 103/ul Normal 0.0-0.7 [facility] Comment on above: Performed By: #### C VDTBH #### [facility] [address] [place] [address] Dr. Jd Humphrey Eosinophils/100 WBC (Bld) 0.8 % Critically low 0.9-7.0 [facility] Comment on above: Performed By: #### C VDTBH #### [facility] [address] [place] [address] Dr. Jd Humphrey Erythrocyte distribution width (RBC) [Ratio] 12.6 % Normal 11.0-15.0 [facility] Comment on above: Performed By: #### C VDTBH #### [facility] [address] [place] [address] Dr. Jd Humphrey Hematocrit (Bld) [Volume fraction] 50.7 % Critically high 36.0-48.0 [facility] Comment on above: Performed By: #### C VDTBH #### [facility] [address] [place] [address] Dr. Jd Humphrey Hemoglobin (Bld) [Mass/Vol] 18.2 g/dL Critically high 12.0-16.0 [facility] Comment on above: Performed By: #### C VDTBH #### [facility] [address] [place] [address] Dr. Jd Humphrey IG # 0.06 10e3/ul Critically high 0.00-0.03 [facility] Comment on above: Performed By: #### C VDTBH #### [facility] [address] [place] [address] Dr. Jd Humphrey IG % 0.5 % Normal 0.0-0.5 [facility] Comment on above: Performed By: #### C VDTBH #### [facility] [address] [place] [address] Dr. Jd Humphrey LYMPH # 1.0 103/ul Critically low 1.2-3.8 [facility] Comment on above: Performed By: #### C VDTBH #### [facility] [address] [place] [address] Dr. Jd Humphrey Lymphocytes/100 WBC (Bld) 8.1 % Critically low 20.5-60.0 [facility] Comment on above: Performed By: #### C VDTBH #### [facility] [address] [place] [address] Dr. Jd Humphrey MANUAL DIFF REQ NO Normal [facility] Comment on above: Performed By: #### C VDTBH #### [facility] [address] [place] [address] Dr. Jd Humphrey MCH (RBC) [Entitic mass] 29.4 pg Normal 26.7-34.0 [facility] Comment on above: Performed By: #### C VDTBH #### [facility] [address] [place] [address] Dr. Jd Humphrey MCHC (RBC) [Mass/Vol] 35.9 g/dL Critically high 29.9-35.[address] [facility] Comment on above: Performed By: #### C VDTBH #### [facility] [address] [place] [address] Dr. Jd Humphrey MCV (RBC) [Entitic vol] 82.0 fL Normal 81.0-99.[address] [facility] Comment on above: Performed By: #### C VDTBH #### [facility] [address] [place] [address] Dr. Jd Humphrey MONO # 0.5 103/ul Normal 0.3-0.[address] [facility] Comment on above: Performed By: #### C VDTBH #### [facility] [address] [place] [address] Dr. Jd Humphrey Monocytes/100 WBC (Bld) 3.6 % Normal 1.7-12.0 [facility] Comment on above: Performed By: #### C VDTBH #### [facility] [address] [place] [address] Dr. Jd Humphrey NEUT # 10.9 103/ul Critically high 1.4-6.5 [facility] Comment on above: Performed By: #### C VDTBH #### [facility] [address] [place] [address] Dr. Jd Humphrey Neutrophils/100 WBC (Bld) 86.8 % Critically high 43.0-75.0 [facility] Comment on above: Performed By: #### C VDTBH #### [facility] [address] [place] [address] Dr. Jd Humphrey Platelet mean volume (Bld) [Entitic vol] 11.0 fL Normal 9.5-13.[address] [facility] Comment on above: Performed By: #### C VDTBH #### [facility] [address] [place] [address] Dr. Jd Humphrey PLT 197 103/ul Normal 150-[address] [facility] Comment on above: Performed By: #### C VDTBH #### [facility] [address] [place] [address] Dr. Jd Humphrey RBC 6.18 106/ul Critically high 4.20-5.40 [facility] Comment on above: Performed By: #### C VDTBH #### [facility] [address] [place] [address] Dr. Jd Humphrey WBC 12.5 103/ul Critically high 4.0-11.0 [facility] Comment on above: Performed By: #### C VDTBH #### [facility] [address] [place] [address] Dr. Jd Humphrey D-DIMERon 09-28-2022 D-DIMER 1.38 mg/L FEU Critically high <=0.59 [facility] Comment on above: Performed By: #### D DIM #### [facility] [address] [place] [address] Dr. Jd Humphrey D-DIMER COMMENTS SEE BELOW Normal [facility] Comment on above: Result Comment: Incr eases in D-Dimer concentration observed with thromboembolic events can be variable due to localization, size, and age of the thrombus. Therefore, a thromboembolic event cannot be diagnosed with certainty on the basis of the reference range. D-Dimers may also be elevated for a variety of disorders including: advanced age, , coronary disease, cancer, liver disease, infection, inflammation, hematoma, DIC, trauma, post-surgery, diabetes, thrombolytic or anticoagulant therapy, stress, and generalized hospitalization. Performed By: #### D DIM #### [facility] [address] [place] [address] Dr. Jd Humphrey LACTATE/LACTIC ACIDon 2022 Lactate [Moles/Vol] 3.6 mmol/L Critically high 0.4-2.0 [facility] Comment on above: Performed By: #### C XWND #### [facility] [address] [place] [address] Dr. Jd Humphrey LIPASEon 09-28-2022 Lipase [Catalytic activity/Vol] 27.0 U/L Critically low 73.0-393.0 [facility] Comment on above: Performed By: #### B MP #### [facility] [address] [place] [address] Dr. Jd Humphrey PROF 14(COMP METB)on 023 Albumin [Mass/Vol] 4.3 g/dL Normal 3.4-5.0 [facility] Comment on above: Performed By: #### B MP #### [facility] [address] [place] [address] Dr. Jd Humphrey Albumin/Globulin [Mass ratio] 1.4 {ratio} Normal [facility] Comment on above: Performed By: #### B MP #### [facility] [address] [place] [address] Dr. Jd Humphrey ALP [Catalytic activity/Vol] 82 U/L Normal 46-116 [facility] Comment on above: Performed By: #### B MP #### [facility] [address] [place] [address] Dr. Jd Humphrey ALT [Catalytic activity/Vol] 19 U/L Normal 14-59 [facility] Comment on above: Performed By: #### B MP #### [facility] [address] [place] [address] Dr. Jd Humphrey Anion gap [Moles/Vol] 14.8 mmol/L Normal [facility] Comment on above: Performed By: #### B MP #### [facility] [address] [place] [address] Dr. Jd Humphrey AST [Catalytic activity/Vol] 35 U/L Normal 15-[address] [facility] Comment on above: Performed By: #### B MP #### [facility] [address] [place] [address] Dr. Jd Humphrey Bilirubin [Mass/Vol] 0.9 mg/dL Normal 0.2-1.[address] [facility] Comment on above: Performed By: #### B MP #### [facility] [address] [place] [address] Dr. Jd Humphrey Calcium [Mass/Vol] 9.7 mg/dL Normal 8.5-10.1 [facility] Comment on above: Performed By: #### B MP #### [facility] [address] [address] [address] Jd Humphrey Chloride [Moles/Vol] 102 mmol/L Normal 98-[address] [facility] Comment on above: Performed By: #### B MP #### [facility] [address] [place] [address] Dr. Jd Humphrey CO2 [Moles/Vol] 25.9 mmol/L Normal 21.0-32.0 [facility] Comment on above: Performed By: #### B MP #### [facility] [address] [place] [address] Dr. Jd Humphrey Creatinine [Mass/Vol] 0.97 mg/dL Normal 0.55-1.[address] [facility] Comment on above: Performed By: #### B MP #### [facility] [address] [place] [address] Dr. Jd Humphrey EGFR-AF [place]INGAPOREAN >60 Normal >=60 [facility] Comment on above: Performed By: #### B MP #### [facility] [address] [place] [address] Dr. Jd Humphrey EGFR-NON AF [place] 58 mL/min/1.73m2 Critically low >=60 [facility] Comment on above: Performed By: #### B MP #### [facility] [address] [place] [address] Dr. Jd Humphrey Globulin (S) [Mass/Vol] 3.1 g/dL Normal [facility] Comment on above: Performed By: #### B MP #### [facility] [address] [address] [address] Jd Humphrey Glucose [Mass/Vol] 235 mg/dL Critically high 74-106 [facility] Comment on above: Performed By: #### B MP #### [facility] [address] [place] [address] Dr. Jd Humphrey Potassium [Moles/Vol] 3.7 mmol/L Normal 3.5-5.[address] [facility] Comment on above: Performed By: #### B MP #### [facility] [address] [place] [address] Dr. Jd Humphrey Protein [Mass/Vol] 7.4 g/dL Normal 6.4-8.[address] [facility] Comment on above: Performed By: #### B MP #### [facility] [address] [place] [address] Dr. Jd Humphrey Sodium [Moles/Vol] 139 mmol/L Normal 136-[address] [facility] Comment on above: Performed By: #### B MP #### [facility] [address] [place] [address] Dr. Jd Humphrey Urea nitrogen [Mass/Vol] 19.0 mg/dL Critically high 7.0-18.[address] [facility] Comment on above: Performed By: #### B MP #### [facility] [address] [place] [address] Dr. Jd Humphrey Urea nitrogen/Creatinine [Mass ratio] 19.6 mg/mg Normal [facility] Comment on above: Performed By: #### B MP #### [facility] [address] [place] [address] Dr. Jd Humphrey PROTIMEon 09-28-2022 INR Coag (PPP) [Relative time] 1.17 {INR} Normal [facility] Comment on above: Performed By: #### C VDTBH #### [facility] [address] [place] [address] Dr. Jd Humphrey INR GUIDELINES SEE BELOW Normal [facility] Comment on above: Result Comment: TOBIAS RED INR: 2.0 - 3.0 CONDITIONS NOT LISTED BELOW 2.5 - 3.5 FOR PROSTHETIC HEART VALVE REPLACEMENT 2.5 - 3.5 RECURRENT THROMBOSIS Performed By: #### C VDTBH #### [facility] [address] [place] [address] Dr. Jd Humphrey PT Coag (PPP) [Time] 12.3 s Critically high 9.0-11.[address] [facility] Comment on above: Performed By: #### C VDTBH #### [facility] [address] [place] [address] Dr. Jd Humphrey PTTon 09-28-2022 aPTT Coag (Bld) [Time] 28.0 s Normal 22.3-36.[address] [facility] Comment on above: Performed By: #### C VDTBH #### [facility] [address] [place] [address] Dr. Jd Humphrey RESPIRATORY PANEL PLUSon Adenovirus Not detected Normal NOT DETECTED [facility] Comment on above: Performed By: #### C XWND #### [facility] [address] [place] [address] Dr. Jd Harvey Parapertusis Not detected Normal NOT DETECTED [facility] Comment on above: Performed By: #### C XWND #### [facility] [address] [place] [address] Dr. Jd Harvey Pertussis Not detected Normal NOT DETECTED [facility] Comment on above: Performed By: #### C XWND #### [facility] [address] [place] [address] Dr. Jd Humphrey Chlamydia Pneumoniae Not detected Normal NOT DETECTED [facility] Comment on above: Performed By: #### C XWND #### [facility] [address] [place] [address] Dr. Jd Humphrey Coronavirus 229E Not detected Normal NOT DETECTED [facility] Comment on above: Performed By: #### C XWND #### [facility] [address] [place] [address] Dr. Jd Humphrey Coronavirus HKU1 Not detected Normal NOT DETECTED [facility] Comment on above: Performed By: #### C XWND #### [facility] [address] [place] [address] Dr. Jd Humphrey Coronavirus NL63 Not detected Normal NOT DETECTED [facility] Comment on above: Performed By: #### C XWND #### [facility] [address] [place] [address] Dr. Jd Humphrey Coronavirus OC43 Not detected Normal NOT DETECTED [facility] Comment on above: Performed By: #### C XWND #### [facility] [address] [place] [address] Dr. Jd Humphrey Influenza A H1 Not detected Normal NOT DETECTED [facility] Comment on above: Performed By: #### C XWND #### [facility] [address] [address] [address] Jd Humphrey Influenza A H1 2009 Not detected Normal NOT DETECTED T [facility] Comment on above: Performed By: #### C XWND #### [facility] [address] [place] [address] Dr. Jd Humphrey Influenza A H3 Not detected Normal NOT DETECTED [facility] Comment on above: Performed By: #### C XWND #### [facility] [address] [place] [address] Dr. Jd Humphrey Influenza B Not detected Normal NOT DETECTED [facility] Comment on above: Performed By: #### C XWND #### [facility] [address] [place] [address] Dr. Jd Humphrey Metapneumovirus Not detected Normal NOT DETECTED [facility] Comment on above: Performed By: #### C XWND #### [facility] [address] [place] [address] Dr. Jd Humphrey Mycoplas. Pneumoniae Not detected Normal NOT DETECTED [facility] Comment on above: Performed By: #### C XWND #### [facility] [address] [place] [address] Dr. Jd Humphrey Parainfluenza 1 Not detected Normal NOT DETECTED [facility] Comment on above: Performed By: #### C XWND #### [facility] [address] [place] [address] Dr. Jd Humphrey Parainfluenza 2 Not detected Normal NOT DETECTED [facility] Comment on above: Performed By: #### C XWND #### [facility] [address] [place] [address] Dr. Jd Humphrey Parainfluenza 3 Not detected Normal NOT DETECTED [facility] Comment on above: Performed By: #### C XWND #### [facility] [address] [place] [address] Dr. Jd Humphrey Parainfluenza 4 Not detected Normal NOT DETECTED [facility] Comment on above: Performed By: #### C XWND #### [facility] [address] [place] [address] Dr. Jd Humphrey Rhino/Enterovirus Not detected Normal NOT DETECTED [facility] Comment on above: Performed By: #### C XWND #### [facility] [address] [place] [address] Dr. Jd Humphrey RP2 Header 1 RESPIRATORY PANEL: VIRUSES Normal [facility] Comment on above: Performed By: #### C XWND #### [facility] [address] [place] [address] Dr. Jd Humphrey RP2 Header 2 RESPIRATORY PANEL: BACTERIA Normal [facility] Comment on above: Performed By: #### C XWND #### [facility] [address] [place] [address] Dr. Jd Humphrey RSV Not detected Normal NOT DETECTED [facility] Comment on above: Performed By: #### C XWND #### [facility] [address] [place] [address] Dr. Jd Humphrey SARS-CoV-2 (COVID-19) RNA SHEILA+probe Ql (Unsp spec) Not detected Normal NOT DETECTED [facility] Comment on above: Performed By: #### C XWND #### [facility] [address] [place] [address] Dr. Jd Humphrey TROPONIN, HIGH SENSITIVITYon 09-28-2022 HSTROP 4671.3 pg/mL Critically high 4.0-51.3 [facility] Comment on above: Result Comment: CUT- OFF POINTS HAVE BEEN ESTABLISHED BASED ON THE FOURTH UNIVERSAL DEFINITIONS OF MYOCARDIAL INFARCTION. THE UPPER REFERENCE LIMIT (URL) OF TROPONIN, DEFINED THE 99TH PERCENTILE OF cTnI DISTRIBUTION IN A REFERENCE POPULATION, HAS BEEN CONFIRMED THE DECISION THRESHOLD FOR [place] DIAGNOSIS. Performed By: #### B MP #### [facility] [address] [place] [address] Dr. Jd Humphrey VC CONSULT FOLLOWUPon 2022 VC CONSULT FOLLOWUP Patient: DAMION ABDI Exam Date: 09/01/2022 : 1960 Gender:F Ordering : DR TAMIKO BYNUM M.D. Admission #: [id number] Family : Order #: [id number] CLICK HERE TO VIEW EXAM RADIOLOGY REPORT PROCEDURE: VEIN CENTER CONSULTATION FOLLOWUP VEIN CENTER - OFFICE VISIT FOLLOW UP COMPARISON: None. PROGRESS NOTES: The patient reports mild pain of the right leg following intravenous laser ablation of right great vein. The patient did oral analgesics the patient compression stocking. The patient has partially followed our recommendations to walk 20-30 minutes once or twice per day since the procedure. Physical exam demonstrates 6 areas of minimal bruising in right thigh lower leg related to tumescence injection. Thrombosed right great saphenous vein can be partially palpated. No areas of erythema or warmth to suggest cellulitis thrombophlebitis. No ulceration Review of the ultrasound performed the same day demonstrates occlusive thrombus extending throughout the treated right great saphenous vein with heat induced thrombus 1.4 cm from saphenofemoral junction. This time the patient would like to take pause in treatments due to the her son. The patient will resume treatments in approximately 1 month. The patient to continue treatments for varicose veins. IMPRESSION: 1. Successful ablation of the right great saphenous vein 2. Persistent incompetent varicose veins PLAN: Micro foam chemical ablation of the right leg Nurse notes, history and physical were reviewed and confirmed, see attached forms. The nurse was present throughout the physical exam and consultation Dictated by: Tamiko Bynum MD on 09/01/2022 at 13:36 Approved by: Tamiko Bynum MD on 09/01/2022 at 13:[address] [facility] VC EXT VENOUS RT LIMITEDon 0 09-01-2022 VC EXT VENOUS RT LIMITED Patient: SOUMYA ABDI Exam Date: 09/01/2022 : 1960 Gender:F Ordering : DR TAMIKO BYNUM M.D. Admission #: [id number] Family : Order #: [id number] CLICK HERE TO VIEW EXAM RADIOLOGY REPORT PROCEDURE: VEIN CENTER EXTREMITY VENOUS RIGHT LIMITED COMPARISON: None. INDICATIONS: Phlebitis of superficial veins of lower extremity I80.01 TECHNIQUE: Lower extremity oseguera scale and Duplex Doppler evaluation of the deep venous system from the inguinal ligament through the calf veins. FINDINGS: REGION: Right lower extremity. THROMBI: Negative for DVT. Heat induced thrombus visualized 1.4cm from the SFJ. The thrombus extends from groin to prox calf COMPRESSIBILITY: Noncompressible segments corresponding to thrombus FLOW: Absent flow corresponding to thrombus *Exam performed in accordance with [facility] practice guidelines- Peripheral venous ultrasound, September 25, 2009. CONCLUSION: Post ablation occlusion of the right great saphenous vein with heat induced thrombus 1.4 cm from the saphenofemoral junction Dictated by: Tamiko Bynum MD on 09/01/2022 at 13:23 Approved by: Tamiko Bynum MD on 09/01/2022 at 13:[address] [facility] VC ENDOVENOUS ABL 1ST V RTon 08-25-2022 VC ENDOVENOUS ABL 1ST V RT Patient: SOUMYA ABDI Exam Date: 08/25/2022 : 1960 Gender:F Ordering : DR TAMIKO BYNUM M.D. Admission #: [id number] Family : Order #: [id number] CLICK HERE TO VIEW EXAM RADIOLOGY REPORT PROCEDURE: VEIN CENTER ENDOVENOUS ABLATION FIRST VEIN RIGHT COMPARISON: None. INDICATIONS: Pain co-occurrent and due to varicose veins of bilateral legs I83.813 OPERATIVE REPORT: The risks and benefits of the procedure had been previously discussed, and were rediscussed at length. Informed written consent was obtained by and Neelam canseco. Time out procedure was performed. The right lower extremity was prepared and draped in the usual sterile fashion to allow knee flexion in the sterile field. Duplex ultrasound probe was draped in a sterile cover, sterile transmission gel was used. Venous mapping was performed with the areas of dilation and large tributaries marked. The total length was 63 cm from the entry 3 cm above the medial malleolus to 3 cm below the saphenofemoral junction. The diameter of the greater saphenous vein ranged from 8 mm. A 30 gauge needle and 1% buffered lidocaine was used to anesthetize the entry site. A 4 mm incision was made with a scalpel and the saphenous vein was entered percutaneously under direct ultrasound guidance with a micropuncture set, a single stick was successful in gaining access. A micro-guide wire was inserted and the needle removed. A micro-set including a dilator was inserted over the microwire and the needle and dilator were removed. A 0.018 guide wire was inserted through the micro-set and threaded through the saphenous vein to the saphenofemoral junction. The dilator was removed and an introducer sheath was inserted over the wire until the end of the sheath entered the saphenofemoral junction. The dilator and wire were removed and the 600 micron fiber was introduced and placed and positioned so that it extended beyond the sheath and was 3 cm peripheral to the saphenofemoral femoral junction. Final position of the fiber was determined by ultrasound guidance and duplex imaging. Tumescent anesthetic was delivered by ultrasound guidance. Three hundred cc of fluid was delivered along the entire course of the saphenous vein. The solution consisted of 500 cc of normal saline with 20mL of 1% lidocaine and 10 mL of sodium bicarbonate. A final positioning check was made. The energy source was turned on by means of the foot pedal and the fiber and sheath were withdrawn. The total number of Joules delivered was 2715. The laser was active for 339 seconds under continuous pulse, average laser use of 8 J. Laser start time 1:10 p.m. August 25, 2022. Laser stop time 1:23 p.m. August 25, 2022. A duplex ultrasound revealed compressibility and flow at the saphenofemoral junction immediately after the procedure. Hemostasis at the access site was achieved. The skin incision of the saphenous vein was closed with a 4 x 4. A compression stocking was applied. Postop instructions were given. A follow up appointment was recommended and scheduled. The patient tolerated the procedure well and was discharged in good condition. CONCLUSION: 1. Technically successful endovenous laser ablation of the right great saphenous vein. Dictated by: Diaz Montemayor M.D. on 08/25/2022 at 14:20 Approved by: Diaz Montemayor M.D. on 08/25/2022 at 14:22 Normal [facility] COMP CONSULTATIONon 08-07 VC COMP CONSULTATION Patient: Sil ABDI Exam Date: 08/07/2022 : 1960 Gender:F Ordering : JUANA MORA . Admission #: [id number] Family : Order #: [id number] CLICK HERE TO VIEW EXAM RADIOLOGY REPORT PROCEDURE: VEIN CENTER CONSULTATION VEIN CENTER - OFFICE VISIT INITIAL COMPARISON: None. PROGRESS NOTES: [age] who presents with a 2 year history right leg pain swelling and varicose veins. Patient rates the pain ranging from a 5 to a 10 out of 10. Patient's right leg is far worse than the left leg. Patient describes the pain as aching burning and throbbing. The patient's symptoms are exacerbated by prolonged standing and are partially relieved by rest leg elevation, over the counter and prescription pain medication and support stockings. The patient was seen in the wound center for a nonhealing wound of the right great toe and referred here for suspected thrombophlebitis the right medial ankle. The patient denies any signs and symptoms to suggest arterial ischemia. The patient describes a family history significant for alcohol abuse depression and hypertension in both parents. Varicose veins in her mother. with a 4th child she raised to was a stepson. Patient smoked for decades, discontinuing in 2014. Patient does not drink alcohol. No illicit drug use. Patient has a past medical history significant for diabetes, chronic fatigue, osteoporosis, depression, headaches, hypercholesterolemia, coronary artery disease, relapsing multiple sclerosis and rheumatoid arthritis. Past surgical history significant for bladder repair, urethral sling, rectal repair, neck fusion, tonsillectomy and total hysterectomy. No history of deep venous thrombus or pulmonary embolus. See separate history and physical for medication list. No prior treatment for varicose or spider veins. Nursing notes were reviewed. After history and physical exam I discussed at length the pathophysiology of venous hypertension and possible treatments, therapies and strategies available. We discussed at length the importance of elevating the lower extremities above the level of the heart, increased physical activity and compression stocking use. I did discuss at length with the patient that her pain likely was partially or mostly related to neuropathy her diabetes, multiple sclerosis and other medical problems. While treatment would likely improve symptoms related to right distal great saphenous vein thrombosis, treatments would likely not resolve her symptoms. We discussed intravenous laser ablation, micro foam chemical ablation and injection sclerotherapy. The risks benefits and alternatives were discussed at length. Patient's questions were answered. Ultrasound venous reflux study performed the same day was discussed at length with the patient. The report demonstrates moderate right great saphenous vein venous insufficiency. Mild left anterior accessory saphenous vein venous insufficiency. Moderate right and mild left incompetent varicose veins. Reflux. Echogenic thrombus distal right great saphenous vein incompetent right leg perforating veins PHYSICAL EXAM: The right leg demonstrates few scattered reticular and spider veins. Focal palpable abnormality identified along the medial ankle related to thrombophlebitis. No hemosiderin staining. Mild subcutaneous edema. Nonhealing ulcer right great toe The left leg demonstrates scattered reticular and spider veins. No significant subcutaneous edema or hemosiderin staining. No active ulceration. Both thighs, legs and feet were symmetrically warm to the touch. Good posterior tibial and dorsalis pedis pulses were present bilaterally. IMPRESSION: 1. Moderate right great saphenous vein venous insufficiency with dilatation 2. Moderate right and mild left lower extremity varicose veins 3. Mild right lower extremity subcutaneous edema 4. No flow significant arterial disease 5. CEAP: C6, Ep, Asp, Pr PLAN: 1. Endovenous laser ablation right great saphenous vein with possible ablation of incompetent right emblem cutter veins 2. Micro foam chemical ablation right leg incompetent varicose veins 3. Long-term use by 20-30 mm compression stockings 4. Continue treatments at the wound care center Nurse notes, history and physical were reviewed and confirmed, see attached forms. The nurse was present throughout the physical exam and consultation Dictated by: Tamiko Bynum MD on 08/07/2022 at 14:43 Approved by: Tamiko Bynum MD on 08/07/2022 at 14:[address] [facility] VC VENOUS REFLUX DONN LMTon 0 08-07-2022 VC VENOUS REFLUX DONN LMT Patient: SOUMYA ABDI Exam Date: 08/07/2022 : 1960 Gender:F Ordering : JUANA MORA . Admission #: [id number] Family : Order #: [id number] CLICK HERE TO VIEW EXAM RADIOLOGY REPORT PROCEDURE: VEIN CENTER ULTRASOUND VENOUS REFLUX BILATERAL LIMTED COMPARISON: None. INDICATIONS: Pain co-occurrent and due to varicose veins of bilateral legs I83.813 TECHNIQUE: Duplex imaging of the lower extremity to assess the deep and superficial venous system for the presence of deep or superficial venous incompetence and to document the location and severity of disease. The study includes evaluation of the great saphenous vein (GSV), anterior accessory saphenous vein (AASV) and small saphenous vein (SSV). Patient scanned in reverse Trendelenburg and standing. FINDINGS: RIGHT LOWER EXTREMITY: Saphenofemoral Junction Reflux: Yes 9.9mm 0.8 sec GSV: Diam (mm) Reflux/ Time (sec) Proximal Thigh 8.3 Yes 1.5 Mid Thigh 5.0 Yes 0.4 Distal Thigh 5.3 Yes 1.3 Prox Calf 4.4 Yes 1.3 Mid Calf 4.9 Yes 1.0 Saphenopopliteal Junction Reflux: 4.5mm No SSV: Proximal Calf 3.0 Yes 0.3 Mid Calf 3.2 Yes 1.2 AASV: Proximal Thigh 5.6 Yes 0.3 Mid Thigh 2.7 Yes 0.2 Distal Thigh Thrombi: Partial thrombus in distal GSV at ankle. Compressibility: Partial compression of distal GSV. Flow: Minimal deep venous reflux. Preforator: Distal medial lower leg 5.3 mm with 1.8s reflux. Mid medial lower leg 4.3 mm with 2.6s reflux. Tech Note: Arterial plaque throughout lower extremity. Thigh extension of right SSV. Varicose vein proximal medial lower leg measures 4.0 mm with 1.2s reflux. Medial distal lower leg varicose vein that connects both perforators measures 4.8 mm with 1.0s reflux. Varicose vein medial distal lower leg measures 2.7 mm with 0.2s reflux. LEFT LOWER EXTREMITY: Saphenofemoral Junction Reflux: Yes 8.7 mm 2.2 sec GSV: Diam (mm) Reflux/Time (sec) Proximal Thigh 5.6 Yes 0.3 Mid Thigh 3.5 Yes 0.3 Distal Thigh 3.2 No Prox Calf 1.7 Yes 0.3 Mid Calf 2.3 Yes 0.3 Saphenopopliteal Junction Relux: 4.2 mm Yes 0.4 SSV: Proximal Calf 2.4 Yes 0.5 Mid Calf 2.1 Yes 0.5 AASV: Proximal Thigh 6.1 Yes 1.6 Mid Thigh 2.9 Yes 0.6 Distal Thigh Thrombi: None. Compressibility: Normal. Flow: Deep venous reflux. Associate Drafter: Mid medial lower leg 4.3 mm with 3.6s reflux. Tech Note: Arterial plaque throughout lower extremity. Thigh extension of right SSV. AASV connects to GSV mid thigh. Varicose vein mid medial lower leg measures 3.5 mm with 0.9s reflux. CONCLUSION: 1. Moderate right great saphenous vein venous insufficiency with associated dilatation 2. Mild venous insufficiency proximal left anterior accessory saphenous vein with borderline dilatation 3. Incompetent right leg perforating veins communicating with the distal great saphenous vein 4. Bilateral incompetent varicose veins, right greater than left Dictated by: Tamiko Bynum MD on 08/07/2022 at 13:43 Approved by: Tamiko Bynum MD on 08/07/2022 at 13:46 [address] [facility] CBC AUTO DIFFon 08-01-2022 BASO # 0.0 103/ul Normal 0.0-0.1 [facility] Comment on above: Performed By: #### C BC #### [facility] [address] [place] [address] Dr. Jd Humphrey Basophils/100 WBC (Bld) 0.6 % Normal 0.2-2.0 [facility] Comment on above: Performed By: #### C BC #### [facility] [address] [place] [address] Dr. Jd Humphrey EO # 0.2 103/ul Normal 0.0-0.7 [facility] Comment on above: Performed By: #### C BC #### [facility] [address] [place] [address] Dr. Jd Humphrey Eosinophils/100 WBC (Bld) 3.3 % Normal 0.9-7.0 [facility] Comment on above: Performed By: #### C BC #### [facility] [address] [place] [address] Dr. Jd Humphrey Erythrocyte distribution width (RBC) [Ratio] 12.9 % Normal 11.0-15.0 [facility] Comment on above: Performed By: #### C BC #### [facility] [address] [place] [address] Dr. Jd Humphrey Hematocrit (Bld) [Volume fraction] 41.4 % Normal 36.0-48.0 [facility] Comment on above: Performed By: #### C BC #### [facility] [address] [place] [address] Dr. Jd Humphrey Hemoglobin (Bld) [Mass/Vol] 14.2 g/dL Normal 12.0-16.0 [facility] Comment on above: Performed By: #### C BC #### [facility] [address] [place] [address] Dr. Jd Humphrey IG # 0.02 10e3/ul Normal 0.00-0.03 [facility] Comment on above: Performed By: #### C BC #### [facility] [address] [place] [address] Dr. Jd Humphrey IG % 0.4 % Normal 0.0-0.5 [facility] Comment on above: Performed By: #### C BC #### [facility] [address] [place] [address] Dr. Jd Humphrey LYMPH # 0.9 103/ul Critically low 1.2-3.8 [facility] Comment on above: Performed By: #### C BC #### [facility] [address] [place] [address] Dr. Jd Humphrey Lymphocytes/100 WBC (Bld) 17.0 % Critically low 20.5-60.0 [facility] Comment on above: Performed By: #### C BC #### [facility] [address] [place] [address] Dr. Jd Humphrey MANUAL DIFF REQ NO Normal [facility] Comment on above: Performed By: #### C BC #### [facility] [address] [place] [address] Dr. Jd Humphrey MCH (RBC) [Entitic mass] 29.3 pg Normal 26.7-34.0 [facility] Comment on above: Performed By: #### C BC #### [facility] [address] [place] [address] Dr. Jd Humphrey MCHC (RBC) [Mass/Vol] 34.3 g/dL Normal 29.9-35.2 [facility] Comment on above: Performed By: #### C BC #### [facility] [address] [place] [address] Dr. Jd Humphrey MCV (RBC) [Entitic vol] 85.5 fL Normal 81.0-99.0 [facility] Comment on above: Performed By: #### C BC #### [facility] [address] [place] [address] Dr. Jd Humphrey MONO # 0.4 103/ul Normal 0.3-0.8 [facility] Comment on above: Performed By: #### C BC #### [facility] [address] [place] [address] Dr. Jd Humphrey Monocytes/100 WBC (Bld) 7.7 % Normal 1.7-12.0 [facility] Comment on above: Performed By: #### C BC #### [facility] [address] [place] [address] Dr. Jd Humphrey NEUT # 3.7 103/ul Normal 1.4-6.5 [facility] Comment on above: Performed By: #### C BC #### [facility] [address] [place] [address] Dr. Jd Humphrey Neutrophils/100 WBC (Bld) 71.0 % Normal 43.0-75.0 [facility] Comment on above: Performed By: #### C BC #### [facility] [address] [place] [address] Dr. Jd Humphrey Platelet mean volume (Bld) [Entitic vol] 11.1 fL Normal 9.5-13.5 [facility] Comment on above: Performed By: #### C BC #### [facility] [address] [place] [address] Dr. Jd Humphrey PLT 125 103/ul Critically low 150-450 [facility] Comment on above: Performed By: #### C BC #### [facility] [address] [place] [address] Dr. Jd Humphrey RBC 4.84 106/ul Normal 4.20-5.[address] [facility] Comment on above: Performed By: #### C BC #### [facility] [address] [place] [address] Dr. Jd Humphrey WBC 5.2 103/ul Normal 4.0-11.[address] [facility] Comment on above: Performed By: #### C BC #### [facility] [address] [place] [address] Dr. Jd Humphrey CREATININEon 08-01-2022 Creatinine [Mass/Vol] 0.53 mg/dL Critically low 0.55-1.02 [facility] Comment on above: Performed By: #### B MP #### [facility] [address] [place] [address] Dr. Jd Humphrey EGFR-AF SINGAPOREAN >60 Normal >=[address] [facility] Comment on above: Performed By: #### B MP #### [facility] [address] [place] [address] Dr. Jd Humphrey EGFR-NON AF [place]APOREAN >60 Normal >=[address] [facility] Comment on above: Performed By: #### B MP #### [facility] [address] [place] [address] Dr. Jd Humphrey LIVER PROFILEon 08-01-2022 Albumin [Mass/Vol] 3.5 g/dL Normal 3.4-5.0 [facility] Comment on above: Performed By: #### B MP #### [facility] [address] [place] [address] Dr. Jd Humphrey Albumin/Globulin [Mass ratio] 1.2 {ratio} Normal [facility] Comment on above: Performed By: #### B MP #### [facility] [address] [place] [address] Dr. Jd Humphrey ALP [Catalytic activity/Vol] 88 U/L Normal 46-[address] [facility] Comment on above: Performed By: #### B MP #### [facility] [address] [place] [address] Dr. Jd Humphery ALT [Catalytic activity/Vol] 25 U/L Normal 14-[address] [facility] Comment on above: Performed By: #### B MP #### [facility] [address] [place] [address] Dr. Jd Humphrey AST [Catalytic activity/Vol] 17 U/L Normal 15-[address] [facility] Comment on above: Performed By: #### B MP #### [facility] [address] [place] [address] Dr. Jd Humphrey BILI, CONJUGATED 0.1 mg/dL Normal 0.0-0.2 [facility] Comment on above: Performed By: #### B MP #### [facility] [address] [place] [address] Dr. Jd Humphrey Bilirubin [Mass/Vol] 0.4 mg/dL Normal 0.2-1.0 [facility] Comment on above: Performed By: #### B MP #### [facility] [address] [place] [address] Dr. Jd Humphrey Globulin (S) [Mass/Vol] 3.0 g/dL Normal [facility] Comment on above: Performed By: #### B MP #### [facility] [address] [place] [address] Dr. Jd Humphrey Protein [Mass/Vol] 6.5 g/dL Normal 6.4-8.2 [facility] Comment on above: Performed By: #### B MP #### [facility] [address] [place] [address] Dr. Jd Humphrey [facility]ATE 15 mm/hr Normal <=30 [facility] Comment on above: Performed By: #### C XWND #### [facility] [address] [place] [address] Dr. Jd Humphrey CULTURE BLOODon 07-30-2022 Microscopic examination of blood, culture Culture Observations: aerobic bottle positive 07/26/22 Culture Observations: bcid= Strep. spp. Culture Observations: No growth in anaerobic bottle at 5 days. Isolate 1 Streptococcus species Growth of ORGANISM 1 Streptococcus species ANTIBIOTIC M.I.C RX STATUS Benzylpenicillin 1 I F Ampicillin 4 I F Cefotaxime 0.5 S F Ceftriaxone 1 S F Clindamycin <=0.25 S F Linezolid <=2 S F Vancomycin 0.5 S F Tetracycline [address] [facility] Comment on above: Performed By: #### B MP #### [facility] [address] [place] [address] Dr. Jd Humphrey ACETONE SERUMon 07-25-2022 ACETONE Negative Normal NEGATIVE [facility] Comment on above: Performed By: #### P OCGLUC #### [facility] [address] [place] [address] Dr. Jd Humphrey BLOOD CULTURE ID PANELon A. baumannii Not detected Normal NOT DETECTED [facility] Comment on above: Performed By: #### C VDTBH #### [facility] [address] [address] [address] Jd Humphrey Bacteriodes fragilis Not detected Normal NOT DETECTED [facility] Comment on above: Performed By: #### C VDTBH #### [facility] [address] [address] [address] Jd Humphrey BCID CONTROLS PASSED Normal [facility] Comment on above: Performed By: #### C VDTBH #### [facility] [address] [address] [address] Jd REYESDBTHD BLOOD CULTURE BOTTLE INFORMATION [facility] Comment on above: Performed By: #### C VDTBH #### [facility] [address] [place] [address] Dr. Jd Humphrey BCIDHD1 ANTIMICROBIAL RESIST ANCE GENES [facility] Comment on above: Performed By: #### C VDTBH #### [facility] [address] [place] [address] Dr. Jd Humphrey BCIDHD2 SEE BELOW [facility] Comment on above: Result Comment: Note : Antimicrobial resitance can occur via multiple mechanisms. A Not Detected result for the [employer] antomicrobial resistance gene assays does not indicate antimicrobial susceptibility. Subculturing is required for species identification and susceptibility testing of isolates. Performed By: #### C VDTBH #### [facility] [address] [place] [address] Dr. Jd Humphrey BCIDHD3 Positive [facility] Comment on above: Performed By: #### C VDTBH #### [facility] [address] [place] [address] Dr. Jd Humphrey BCIDHD4 Negative [facility] Comment on above: Performed By: #### C VDTBH #### [facility] [address] [place] [address] Dr. Jd REYESDHD5 YEAST Normal [facility] Comment on above: Performed By: #### C VDTBH #### [facility] [address] [place] [address] Dr. Jd Humphrey Bottle Set: Set [address] [facility] Comment on above: Performed By: #### C VDTBH #### [facility] [address] [place] [address] Dr. Jd Humphrey Bottle: Aerobic Normal [facility] Comment on above: Performed By: #### C VDTBH #### [facility] [address] [place] [address] Dr. Jd Humphrey C. neoformans/gattii Not detected Normal NOT DETECTED [facility] Comment on above: Performed By: #### C VDTBH #### [facility] [address] [place] [address] Dr. Jd Humphrey Rose albicans Not detected Normal NOT DETECTED [facility] Comment on above: Performed By: #### C VDTBH #### [facility] [address] [place] [address] Dr. Jd Humphrey Rose auris Not detected Normal NOT DETECTED [facility] Comment on above: Performed By: #### C VDTBH #### [facility] [address] [place] [address] Dr. Jd Humphrey Rose glabrata Not detected Normal NOT DETECTED [facility] Comment on above: Performed By: #### C VDTBH #### [facility] [address] [place] [address] Dr. Jd Humphrey Rose Krusei Not detected Normal NOT DETECTED [facility] Comment on above: Performed By: #### C VDTBH #### [facility] [address] [place] [address] Dr. Jd Humphrey Rose Parapsilosis Not detected Normal NOT DETECTED [facility] Comment on above: Performed By: #### C VDTBH #### [facility] [address] [place] [address] Dr. Jd Humphrey Rose Tropicalis Not detected Normal NOT DETECTED [facility] Comment on above: Performed By: #### C VDTBH #### [facility] [address] [place] [address] Dr. Jd Humphrey CTX-M Resistant Gene Not Applicable Normal NOT DETECTE D [facility] Comment on above: Performed By: #### C VDTBH #### [facility] [address] [place] [address] Dr. Jd Humphrey E. Cloacae complex Not detected Normal NOT DETECTED [facility] Comment on above: Performed By: #### C VDTBH #### [facility] [address] [place] [address] Dr. Jd Humphrey E. faecalis Not detected Normal NOT DETECTED [facility] Comment on above: Performed By: #### C VDTBH #### [facility] [address] [place] [address] Dr. Jd Humphrey E. faecium Not detected Normal NOT DETECTED [facility] Comment on above: Performed By: #### C VDTBH #### [facility] [address] [place] [address] Dr. Jd Humphrey Enterobacteriaceae Not detected Normal NOT DETECTED [facility] Comment on above: Performed By: #### C VDTBH #### [facility] [address] [place] [address] Dr. Jd Humphrey Escherichia coli Not detected Normal NOT DETECTED [facility] Comment on above: Performed By: #### C VDTBH #### [facility] [address] [place] [address] Dr. Jd Humphrey H. influenzae Not detected Normal NOT DETECTED [facility] Comment on above: Performed By: #### C VDTBH #### [facility] [address] [place] [address] Dr. Jd Humphrey IMP Resistant Gene Not Applicable Normal NOT DETECTED [facility] Comment on above: Performed By: #### C VDTBH #### [facility] [address] [place] [address] Dr. Jd Humphrey K. oxytoca Not detected Normal NOT DETECTED [facility] Comment on above: Performed By: #### C VDTBH #### [facility] [address] [place] [address] Dr. dJ Humphrey K. pneumoniae Not detected Normal NOT DETECTED [facility] Comment on above: Performed By: #### C VDTBH #### [facility] [address] [place] [address] Dr. Jd Humphrey Klebsiella aerogenes Not detected Normal NOT DETECTED [facility] Comment on above: Performed By: #### C VDTBH #### [facility] [address] [place] [address] Dr. Jd Humphrey KPC Resistant Gene Not Applicable Normal NOT DETECTED [facility] Comment on above: Performed By: #### C VDTBH #### [facility] [address] [place] [address] Dr. Jd Humphrey List. monocytogenes Not detected Normal NOT DETECTED [facility] Comment on above: Performed By: #### C VDTBH #### [facility] [address] [place] [address] Dr. Jd Humphrey Mcr-1 Resistant Gene Not Applicable Normal NOT DETECTE D [facility] Comment on above: Performed By: #### C VDTBH #### [facility] [address] [place] [address] Dr. Jd Humphrey mecA/C Not Applicable Normal NOT DETECTED [facility] Comment on above: Performed By: #### C VDTBH #### [facility] [address] [place] [address] Dr. Jd Humphrey mecA/C MREJ Not Applicable Normal NOT DETECTED [facility] Comment on above: Performed By: #### C VDTBH #### [facility] [address] [place] [address] Dr. Jd Humphrey N. meningitidis Not detected Normal NOT DETECTED [facility] Comment on above: Performed By: #### C VDTBH #### [facility] [address] [place] [address] Dr. Jd Humphrey NDM Resistant Gene Not Applicable Normal NOT DETECTED [facility] Comment on above: Performed By: #### C VDTBH #### [facility] [address] [place] [address] Dr. Jd Humphrey Oxa-48-like Not Applicable Normal NOT DETECTED [facility] Comment on above: Performed By: #### C VDTBH #### [facility] [address] [place] [address] Dr. Jd Humphrey Proteus Not detected Normal NOT DETECTED [facility] Comment on above: Performed By: #### C VDTBH #### [facility] [address] [place] [address] Dr. Jd Humphrey Pseud. aeruginosa Not detected Normal NOT DETECTED [facility] Comment on above: Performed By: #### C VDTBH #### [facility] [address] [place] [address] Dr. Jd Humphrey S. maltophilia Not detected Normal NOT DETECTED [facility] Comment on above: Performed By: #### C VDTBH #### [facility] [address] [place] [address] Dr. Jd Humphrey Salmonella Not detected Normal NOT DETECTED [facility] Comment on above: Performed By: #### C VDTBH #### [facility] [address] [place] [address] Dr. Jd Humphrey Seratia marcescens Not detected Normal NOT DETECTED [facility] Comment on above: Performed By: #### C VDTBH #### [facility] [address] [place] [address] Dr. Jd Humphrey Site: la Normal [facility] Comment on above: Performed By: #### C VDTBH #### [facility] [address] [place] [address] Dr. Jd Humphrey Stapkiera. aureus Not detected Normal NOT DETECTED [facility] Comment on above: Performed By: #### C VDTBH #### [facility] [address] [place] [address] Dr. Jd Humphrey Stapkiera. epidermidis Not detected Normal NOT DETECTED [facility] Comment on above: Performed By: #### C VDTBH #### [facility] [address] [place] [address] Dr. Jd Humphrey Stapkiera. lugdunensis Not detected Normal NOT DETECTED [facility] Comment on above: Performed By: #### C VDTBH #### [facility] [address] [place] [address] Dr. Jd Humphrey Staphylococcus Not detected Normal NOT DETECTED [facility] Comment on above: Performed By: #### C VDTBH #### [facility] [address] [place] [address] Dr. Jd Humphrey Strep. agalactiae Not detected Normal NOT DETECTED [facility] Comment on above: Performed By: #### C VDTBH #### [facility] [address] [place] [address] Dr. Jd Humphrey Strep. pneumoniae Not detected Normal NOT DETECTED [facility] Comment on above: Performed By: #### C VDTBH #### [facility] [address] [place] [address] Dr. Jd Humphrey Strep. pyogenes Not detected Normal NOT DETECTED [facility] Comment on above: Performed By: #### C VDTBH #### [facility] [address] [place] [address] Dr. Jd Humphrey Streptococcus Detected Critically abnormal NOT DETECTED [facility] Comment on above: Performed By: #### C VDTBH #### [facility] [address] [place] [address] Dr. Jd Humphrey Fred/B Resist. Gene Not Applicable Normal NOT DETECTED [facility] Comment on above: Performed By: #### C VDTBH #### [facility] [address] [place] [address] Dr. Jd Humphrey VIM Resistant Gene Not Applicable Normal NOT DETECTED [facility] Comment on above: Performed By: #### C VDTBH #### [facility] [address] [place] [address] Dr. Jd Humphrey CBC AUTO DIFFon 07-25-2022 BASO # 0.0 103/ul Normal 0.0-0.1 [facility] Comment on above: Performed By: #### D DIM #### [facility] [address] [place] [address] Dr. Jd Humphrey Basophils/100 WBC (Bld) 0.3 % Normal 0.2-2.0 [facility] Comment on above: Performed By: #### D DIM #### [facility] [address] [place] [address] Dr. Jd Humphrey EO # 0.0 103/ul Normal 0.0-0.7 [facility] Comment on above: Performed By: #### D DIM #### [facility] [address] [place] [address] Dr. Jd Humphrey Eosinophils/100 WBC (Bld) 0.7 % Critically low 0.9-7.0 [facility] Comment on above: Performed By: #### D DIM #### [facility] [address] [place] [address] Dr. Jd Humphrey Erythrocyte distribution width (RBC) [Ratio] 12.6 % Normal 11.0-15.0 [facility] Comment on above: Performed By: #### D DIM #### [facility] [address] [place] [address] Dr. Jd Humphrey Hematocrit (Bld) [Volume fraction] 40.8 % Normal 36.0-48.0 [facility] Comment on above: Performed By: #### D DIM #### [facility] [address] [place] [address] Dr. Jd Humphrey Hemoglobin (Bld) [Mass/Vol] 14.1 g/dL Normal 12.0-16.0 [facility] Comment on above: Performed By: #### D DIM #### [facility] [address] [place] [address] Dr. Jd Humphrey IG # 0.02 10e3/ul Normal 0.00-0.03 [facility] Comment on above: Performed By: #### D DIM #### [facility] [address] [place] [address] Dr. Jd Humphrey IG % 0.3 % Normal 0.0-0.5 [facility] Comment on above: Performed By: #### D DIM #### [facility] [address] [place] [address] Dr. Jd Humphrey LYMPH # 0.9 103/ul Critically low 1.2-3.8 [facility] Comment on above: Performed By: #### D DIM #### [facility] [address] [place] [address] Dr. Jd Humphrey Lymphocytes/100 WBC (Bld) 15.4 % Critically low 20.5-60.0 [facility] Comment on above: Performed By: #### D DIM #### [facility] [address] [place] [address] Dr. Jd Humphrey MANUAL DIFF REQ NO Normal [facility] Comment on above: Performed By: #### D DIM #### [facility] [address] [place] [address] Dr. Jd Humphrey MCH (RBC) [Entitic mass] 29.3 pg Normal 26.7-34.0 [facility] Comment on above: Performed By: #### D DIM #### [facility] [address] [place] [address] Dr. Jd Humphrey MCHC (RBC) [Mass/Vol] 34.6 g/dL Normal 29.9-35.2 [facility] Comment on above: Performed By: #### D DIM #### [facility] [address] [place] [address] Dr. Jd Humphrey MCV (RBC) [Entitic vol] 84.6 fL Normal 81.0-99.0 [facility] Comment on above: Performed By: #### D DIM #### [facility] [address] [place] [address] Dr. Jd Humphrey MONO # 0.3 103/ul Normal 0.3-0.8 [facility] Comment on above: Performed By: #### D DIM #### [facility] [address] [place] [address] Dr. Jd Humphrey Monocytes/100 WBC (Bld) 5.7 % Normal 1.7-12.0 [facility] Comment on above: Performed By: #### D DIM #### [facility] [address] [place] [address] Dr. Jd Humphrey NEUT # 4.5 103/ul Normal 1.4-6.5 [facility] Comment on above: Performed By: #### D DIM #### [facility] [address] [place] [address] Dr. Jd Humphrey Neutrophils/100 WBC (Bld) 77.6 % Critically high 43.0-75.0 [facility] Comment on above: Performed By: #### D DIM #### [facility] [address] [address] [address] Jd Humphrey Platelet mean volume (Bld) [Entitic vol] 11.0 fL Normal 9.5-13.5 [facility] Comment on above: Performed By: #### D DIM #### [facility] [address] [address] [address] Jd Humphrey PLT 128 103/ul Critically low 150-450 [facility] Comment on above: Performed By: #### D DIM #### [facility] [address] [address] [address] Jd Humphrey RBC 4.82 106/ul Normal 4.20-5.40 [facility] Comment on above: Performed By: #### D DIM #### [facility] [address] [place] [address] Dr. Jd Humphrey WBC 5.8 103/ul Normal 4.0-11.0 [facility] Comment on above: Performed By: #### D DIM #### [facility] [address] [place] [address] Dr. Jd Humphrey CRPon 07-25-2022 CRP 0.2 mg/dL Normal <=1.0 [facility] Comment on above: Performed By: #### B MP #### [facility] [address] [place] [address] Dr. Jd Humphrey CULTURE BLOODon 07-25-2022 Microscopic examination of blood, culture Culture Observations: NO GROWTH AT 5 DAYS. Normal [facility] Comment on above: Performed By: #### B LDCX2 #### [facility] [address] [place] [address] Dr. Jd Humphrey LACTATE/LACTIC ACIDon 2022 Lactate [Moles/Vol] 2.3 mmol/L Critically high 0.4-1.9 [facility] Comment on above: Performed By: #### B MP #### [facility] [address] [place] [address] Dr. Jd Humphrey PROF 14(COMP METB)on 01-24-2 023 Albumin [Mass/Vol] 3.6 g/dL Normal 3.4-5.0 [facility] Comment on above: Performed By: #### B MP #### [facility] [address] [place] [address] Dr. Jd Humphrey Albumin/Globulin [Mass ratio] 1.2 {ratio} Normal [facility] Comment on above: Performed By: #### B MP #### [facility] [address] [place] [address] Dr. Jd Humphrey ALP [Catalytic activity/Vol] 86 U/L Normal 46-116 [facility] Comment on above: Performed By: #### B MP #### [facility] [address] [place] [address] Dr. Jd Humphrey ALT [Catalytic activity/Vol] 28 U/L Normal 14-59 [facility] Comment on above: Performed By: #### B MP #### [facility] [address] [place] [address] Dr. Jd Humphrey Anion gap [Moles/Vol] 15.2 mmol/L Normal [facility] Comment on above: Performed By: #### B MP #### [facility] [address] [place] [address] Dr. Jd Humphrey AST [Catalytic activity/Vol] 27 U/L Normal 15-37 [facility] Comment on above: Performed By: #### B MP #### [facility] [address] [place] [address] Dr. Jd Humphrey Bilirubin [Mass/Vol] 0.8 mg/dL Normal 0.2-1.0 [facility] Comment on above: Performed By: #### B MP #### [facility] [address] [place] [address] Dr. Jd Humphrey Calcium [Mass/Vol] 8.8 mg/dL Normal 8.5-10.1 [facility] Comment on above: Performed By: #### B MP #### [facility] [address] [place] [address] Dr. Jd Humphrey Chloride [Moles/Vol] 104 mmol/L Normal 98-107 [facility] Comment on above: Performed By: #### B MP #### [facility] [address] [address] [address] Jd Humphrey CO2 [Moles/Vol] 24.8 mmol/L Normal 21.0-32.0 [facility] Comment on above: Performed By: #### B MP #### [facility] [address] [address] [address] Jd Humphrey Creatinine [Mass/Vol] 0.79 mg/dL Normal 0.55-1.02 [facility] Comment on above: Performed By: #### B MP #### [facility] [address] [address] [address] Jd Humphrey EGFR-AF SINGAPOREAN >60 Normal >=60 [facility] Comment on above: Performed By: #### B MP #### [facility] [address] [place] [address] Dr. Jd Humphrey EGFR-NON AF SINGAPOREAN >60 Normal >=60 [facility] Comment on above: Performed By: #### B MP #### [facility] [address] [place] [address] Dr. Jd Humphrey Globulin (S) [Mass/Vol] 3.0 g/dL Normal [facility] Comment on above: Performed By: #### B MP #### [facility] [address] [place] [address] Dr. Jd Humphrey Glucose [Mass/Vol] 310 mg/dL Critically high 74-106 [facility] Comment on above: Performed By: #### B MP #### [facility] [address] [place] [address] Dr. Jd Humphrey Potassium [Moles/Vol] 4.0 mmol/L Normal 3.5-5.[address] [facility] Comment on above: Performed By: #### B MP #### [facility] [address] [place] [address] Dr. Jd Humphrey Protein [Mass/Vol] 6.6 g/dL Normal 6.4-8.[address] [facility] Comment on above: Performed By: #### B MP #### [facility] [address] [address] [address] Jd Humphrey Sodium [Moles/Vol] 140 mmol/L Normal 136-145 [facility] Comment on above: Performed By: #### B MP #### [facility] [address] [id number] [address] Jd Humphrey Urea nitrogen [Mass/Vol] 10.0 mg/dL Normal 7.0-18.0 [facility] Comment on above: Performed By: #### B MP #### [facility] [address] [address] [address] Jd Humphrey Urea nitrogen/Creatinine [Mass ratio] 12.7 mg/mg Normal [facility] Comment on above: Performed By: #### B MP #### [facility] [address] [address] [address] Jd Humphrey SED RATE [facility] 2022 SED RATE 12 mm/hr Normal <=30 [facility] Comment on above: Performed By: #### B MP #### [facility] [address] [place] [address] Dr. Jd Humphrey Procedure (Gastroenterology) on 06-21-2022 Procedure (Gastroenterology) Diagnoses/Problems Assessed Fatty (change of) liver, not elsewhere classified (571.8) (K76.0) Provider Impressions The median FIBROSCAN score is 16.4 kPa, which for this patient is consistent with METAVIR F4 fibrosis (cirrhosis) The median CAP score is 340 dB/m, which for this patient is consistent with 67-100% hepatocyte steatosis. Chief Complaint 1040) Patient referred for a Fibroscan with a diagnosis of Fatty Liver. Patient identified X 2 and confirmed fasting for >3 hours. Fibroscan study completed using XL probe and 10 valid measurements obtained. Patient tolerated procedure well. Results: Median= 16.4 kPa IQR/ med= 19 % CAP= 340 dB/m Patient advised the physician will read the study and review it at their next appointment Jason Boss RN Active Problems Problems Cirrhosis (571.5) (K74.60) Fatty (change of) liver, not elsewhere classified (571.8) (K76.0) Hypertension (401.9) (I10) Methotrexate, intermodal customer service, current use (V58.69) (Z79.631) Rheumatoid arthritis (714.0) (M06.9) Thrombocytopenia (287.5) (D69.6) Past Medical History Problems Cirrhosis (571.5) (K74.60) Fatty (change of) liver, not elsewhere classified (571.8) (K76.0) History of blood product transfusion (V58.2) (Z92.89) History of coronary artery disease (V12.59) (Z86.79) History of fatty infiltration of liver (V12.79) (Z87.19) History of multiple sclerosis (340) (G35) Hypertension (401.9) (I10) Methotrexate, intermodal customer service, current use (V58.69) (Z79.631) Rheumatoid arthritis (714.0) (M06.9) Thrombocytopenia (287.5) (D69.6) Surgical History Problems History of Bladder surgery History of Hysterectomy History of Liver biopsy 2010 History of Tonsillectomy Family History Mother Family history of cerebrovascular accident (CVA) (V17.1) (Z82.3) Father Family history of coronary artery disease (V17.3) (Z82.49) Brother Family history of emphysema (V17.6) (Z82.5) Family history of Suicide by firearm Grandparent Family history of liver cancer (V16.0) (Z80.0) Family history of malignant neoplasm of breast (V16.3) (Z80.3) Aunt Family history of malignant neoplasm of breast (V16.3) (Z80.3) Multiple Family Members Family history of malignant neoplasm of esophagus (V16.0) (Z80.0) Social History Problems Former smoker (V15.82) (Z87.891) Has 4 children No alcohol use No illicit drug use (V61.07) (Z63.4) Allergies Medication Levaquin Swelling; Updated By: Naomie Bragg; 09/20/2018 10:30:11 AM Current Meds Medication NameInstruction Bydureon 2 MG PEN Carbidopa-Levodopa 25-100 MG Oral Tablet Citalopram Hydrobromide 40 MG Oral Tablet [facility] Stool Softener 100 MG Oral CapsuleTAKE 1 CAPSULE BY MOUTH AT BEDTIME NEEDED D3-50 1.25 MG (96569 UT) Oral CapsuleTAKE 1 CAPSULE EVERY 2 WEEKS Fluconazole 100 MG Oral Tablet Furosemide 20 MG Oral Tablet Glimepiride 4 MG Oral Tablet Hydroxychloroquine Sulfate 200 MG Oral Tablet Januvia 100 MG Oral Tablet Lyrica 100 MG Oral Capsule Modafinil 200 MG Oral Tablet Morphine Sulfate ER 30 MG Oral Tablet Extended Release oxyCODONE-Acetaminophen 5-325 MG Oral Tablet Potassium Chloride ER 10 MEQ Oral Capsule Extended Release ProAir HFA 108 (90 Base) MCG/ACT AERS rOPINIRole HCl - 2 MG Oral Tablet Rosuvastatin Calcium 20 MG Oral Tablet tiZANidine HCl - 4 MG Oral Tablet Signatures Electronically signed by : Jason Boss R.N.; Jun 21 2022 10:47AM EST (Author) Electronically signed by : Juan F Savage MD; Jun 21 2022 12:25PM EST (Author) Normal [employer] Albumin [Mass/volume] in Ser um or PlasmaOrdered By: Juan F Savage on 05-10-2022 Albumin [Mass/Vol] 4.0 g/dL 3.2-5.5 [facility] Basophils Auto (Bld) [#/Vol] Ordered By: Juan F Savage on 05-10-2022 Basophils (Bld) [#/Vol] 0.0 10*3/uL 0.0-0.2 [facility] Basophils/100 WBC Auto (Bld) Ordered By: Juan F Savage on 05-10-2022 Basophils/100 WBC (Bld) 0.5 % . [facility] Creatinine and Glomerular fi ltration rate.predicted panel (S/P/Bld)Ordered By: Juan F Savage on 05-10-2022 Creatinine [Mass/Vol] 0.76 mg/dL 0.44-1.03 [facility] Direct bilirubin measurement Ordered By: Juan F Savage on 05-10-2022 Bilirubin.direct [Mass/Vol] 0.2 mg/dL 0.0-0.4 [facility] Eosinophils Auto (Bld) [#/Vo l]Ordered By: Juan F Savage on 05-10-2022 Eosinophils (Bld) [#/Vol] 0.1 10*3/uL 0.0-0.45 [facility] Eosinophils/100 WBC Auto (Bl d)Ordered By: Juan F Savage on 05-10-2022 Eosinophils/100 WBC (Bld) 2.5 % . [facility] Erythrocyte distribution wid th Auto (RBC) [Ratio]Ordered By: Juan F Savage on 05-10-2022 Erythrocyte distribution width (RBC) [Ratio] 13.5 % 11.9-15.3 [facility] Estimated glomerular filtrat ion rate (GFR) non- AmericanOrdered By: Juan F Savage on 05-10-2022 GFR/1.73 sq M.predicted among non-blacks MDRD (S/P/Bld) [Vol rate/Area] > 60 mL/Min [facility] Globulin Calc (S) [Mass/Vol] Ordered By: Juan F Savage on 05-10-2022 Globulin (S) [Mass/Vol] 2.1 g/dL [facility] Hematocrit Auto (Bld) [Volum e fraction]Ordered By: Juan F Savage on 05-10-2022 Hematocrit (Bld) [Volume fraction] 47.5 % 34.0-46.4 [facility] Hemoglobin [Mass/volume] in BloodOrdered By: Juan F Savage on 05-10-2022 Hemoglobin (Bld) [Mass/Vol] 15.8 g/dL 11.8-15.4 [facility] - CoagulationOrde red By: Juan F Savage on 05-10-2022 PT Coag (PPP) [Time] 14.1 s 9.0-12.9 [facility] - Hematology and Cell countsOrdered By: Juan F Savage on 05-10-2022 Nucleated RBC/100 WBC (Bld) [Ratio] 0.1 % 0-0.5 [facility] Leukocytes [#/volume] in Blo od by Automated countOrdered By: Juan F Savage on 05-10-2022 WBC (Bld) [#/Vol] 5.9 10*3/uL 4.5-11.0 [facility] Lymphocytes Auto (Bld) [#/Vo l]Ordered By: Juan F Savage on 05-10-2022 Lymphocytes (Bld) [#/Vol] 1.0 10*3/uL 1.00-4.8 [facility] Lymphocytes/100 WBC Auto (Bl d)Ordered By: Juan F Savage on 05-10-2022 Lymphocytes/100 WBC (Bld) 17.1 % . [facility] MCH Auto (RBC) [Entitic mass ]Ordered By: Juan F Savage on 05-10-2022 MCH (RBC) [Entitic mass] 28.4 pg 24.7-34.3 [facility] MCHC Auto (RBC) [Mass/Vol]Or dered By: Juan F Savage on 05-10-2022 MCHC (RBC) [Mass/Vol] 33.3 g/dL 32.0-35.0 [facility] MCV Auto (RBC) [Entitic vol] Ordered By: Juan F Savage on 05-10-2022 MCV (RBC) [Entitic vol] 85.3 fL 80-100 [facility] Monocytes Auto (Bld) [#/Vol] Ordered By: Juan F Savage on 05-10-2022 Monocytes (Bld) [#/Vol] 0.5 10*3/uL 0.0-0.8 [facility] Monocytes/100 WBC Auto (Bld) Ordered By: Juan F Savage on 05-10-2022 Monocytes/100 WBC (Bld) 8.3 % . [facility] Neutrophils Auto (Bld) [#/Vo l]Ordered By: Juan F Savage on 05-10-2022 Neutrophils (Bld) [#/Vol] 4.3 10*3/uL 1.8-7.7 [facility] Neutrophils/100 WBC Auto (Bl d)Ordered By: Juan F Savage on 05-10-2022 Neutrophils/100 WBC (Bld) 71.6 % . [facility] No Panel InformationOrdered By: Juan F Savage on 05-10-2022 Estimated GFR () > 60 mL/Min [facility] Comment on above: GFR estimated refere nce range: According to KDOQI guidelines, <60 ml/min/1.73m2 is sufficient to diagnose a patient with chronic kidney disease. Pharmacy Creatinine Clearance (Chem N/A [facility] Platelet mean volume Auto (B ld) [Entitic vol]Ordered By: Juan F Savage on 05-10-2022 Platelet mean volume (Bld) [Entitic vol] 8.9 fL 6.3-10.7 [facility] Platelet poor plasma interna tional normalized ratio (INR) by coagulation assay (relatOrdered By: Juan F Savage on 05-10-2022 INR Coag (PPP) [Relative time] 1.2 {INR} [facility] Comment on above: INR Therapeutic Rang e A) Pre- and Peroperative OAT started two weeks before surgery. NOT HIP SURGERY: 1.5 - 2.5 HIP SURGERY: 2 - 3B) Primary and secondary prevention of venous THROMBOSIS: 2 - 3C) Active venous thrombosis, pulmonary embolismand prevention of recurrent venous thrombosis: 2 - 3D) Prevention of arterial thromboembolismincluding patients with mechanical heart valves: 3 - 4.5 Platelets Auto (Bld) [#/Vol] Ordered By: Juan F Savage on 05-10-2022 Platelets (Bld) [#/Vol] 150 10*3/uL 150-450 [facility] Protein [Mass/volume] in Ser um or PlasmaOrdered By: Juan F Savage on 05-10-2022 Protein [Mass/Vol] 6.1 g/dL 6.1-7.9 [facility] RBC Auto (Bld) [#/Vol]Ordere d By: Juan F Savage on 05-10-2022 RBC (Bld) [#/Vol] 5.56 10*6/uL 3.60-5.00 [facility] Serum or plasma alanine blake otransferase measurement without P-5'-P (enzymatic activiOrdered By: Juan F Savage on 05-10-2022 ALT No additional P-5'-P [Catalytic activity/Vol] 14 U/L 10-60 [facility] Serum or plasma albumin/glob ulin mass ratioOrdered By: Juan F Savage on 05-10-2022 Albumin/Globulin [Mass ratio] 1.9 {ratio} [facility] Serum or plasma alkaline burton sphatase measurement (enzymatic activity/volume)Ordered By: Juan F Savage on 05-10-2022 ALP [Catalytic activity/Vol] 68 U/L 32-92 [facility] Serum or plasma anion gap de terminationOrdered By: Juan F Savage on 05-10-2022 Anion gap [Moles/Vol] 10.4 mmol/L 6.0-15.0 [facility] Serum or plasma aspartate am inotransferase measurement (enzymatic activity/volume)Ordered By: Juan F Savage on 05-10-2022 AST [Catalytic activity/Vol] 21 U/L 10-42 [facility] Serum or plasma calcium narda urement (mass/volume)Ordered By: Juan F Savage on 05-10-2022 Calcium [Mass/Vol] 9.5 mg/dL 8.2-10.2 [facility] Serum or plasma chloride francesca surement (moles/volume)Ordered By: Juan F Savage on 05-10-2022 Chloride [Moles/Vol] 103 mmol/L 95-114 [facility] Serum or plasma glucose narda urement (mass/volume)Ordered By: Juan F Savage on 05-10-2022 Glucose [Mass/Vol] 118 mg/dL 70-100 [facility] Comment on above: ADA recommended refe rence rangeRandom Glucose Reference Range is dependent on time and content of last meal. Glucose of more than 200 mg/dL in a nonstressed, ambulatory subject supports the diagnosis of Diabetes Mellitus. Serum or plasma potassium me asurement (moles/volume)Ordered By: Juan F Savage on 05-10-2022 Potassium [Moles/Vol] 3.9 mmol/L 3.5-5.1 [facility] Serum or plasma sodium measu rement (moles/volume)Ordered By: Juan F Savage on 05-10-2022 Sodium [Moles/Vol] 138 mmol/L 136-146 [facility] Serum or plasma total biliru bin measurement (mass/volume)Ordered By: Juan F Savage on 05-10-2022 Bilirubin [Mass/Vol] 0.9 mg/dL 0.3-1.2 [facility] Serum or plasma total carbon dioxide measurement (moles/volume)Ordered By: Juan F Savage on 05-10-2022 CO2 [Moles/Vol] 28.5 mmol/L 22.0-30.0 [facility] Serum or plasma urea nitroge n measurement (mass/volume)Ordered By: Juan F Savage on 05-10-2022 Urea nitrogen [Mass/Vol] 19 mg/dL 03-24 [facility] Established Visit (Gastroent erology)on 04-17-2022 Established Visit (Gastroenterology) Diagnoses/Problems Assessed Cirrhosis (571.5) (K74.60) Orders Cirrhosis, Fatty (change of) liver, not elsewhere classified, Thrombocytopenia Alpha Fetoprotein, Serum; Status:Active; Requested for:17Apr2022; Perform:Lab Services - Lab To Draw (Blood Test); Due:16Jul2022;Ordered; For:Cirrhosis, Fatty (change of) liver, not elsewhere classified, Thrombocytopenia; Ordered By:Juan F Savage; Hepatology Follow-Up Outpatient Follow-up IN 6 MONTHS Status: Hold For - Scheduling,Exact Date Requested for: Ordered;For: Cirrhosis, Fatty (change of) liver, not elsewhere classified, Thrombocytopenia; Ordered By: Juan F Savage Performed: Due: 16Jul2022 Alpha Fetoprotein, Serum; Status:Hold For - Exact Date; Requested for:; Perform:Lab Services - Lab To Draw (Blood Test); Due:16Jul2022;Ordered; For:Cirrhosis, Fatty (change of) liver, not elsewhere classified, Thrombocytopenia; Ordered By:Juan F Savage; Bilirubin, Serum Direct - Conjugated; Status:Active; Requested for:17Apr2022; Perform:Lab Services - Lab To Draw (Blood Test); Due:16Jul2022;Ordered; For:Cirrhosis, Fatty (change of) liver, not elsewhere classified, Thrombocytopenia; Ordered By:Juan F Savage; Bilirubin, Serum Direct - Conjugated; Status:Hold For - Exact Date; Requested for:; Perform:Lab Services - Lab To Draw (Blood Test); Due:16Jul2022;Ordered; For:Cirrhosis, Fatty (change of) liver, not elsewhere classified, Thrombocytopenia; Ordered By:Juan F Savage; Complete Blood Count + Differential; Status:Active; Requested for:17Apr2022; Perform:Lab Services - Lab To Draw (Blood Test); Due:16Jul2022;Ordered; For:Cirrhosis, Fatty (change of) liver, not elsewhere classified, Thrombocytopenia; Ordered By:Juan F Savage; Comprehensive Metabolic Panel; Status:Active; Requested for:17Apr2022; Perform:Lab Services - Lab To Draw (Blood Test); Due:16Jul2022;Ordered; For:Cirrhosis, Fatty (change of) liver, not elsewhere classified, Thrombocytopenia; Ordered By:Juan F Savage; Comprehensive Metabolic Panel; Status:Hold For - Exact Date; Requested for:; Perform:Lab Services - Lab To Draw (Blood Test); Due:16Jul2022;Ordered; For:Cirrhosis, Fatty (change of) liver, not elsewhere classified, Thrombocytopenia; Ordered By:Juan F Savage; IO Liver Ultrasound; Status:Hold For - Scheduling; Requested for:17Apr2022; Perform:In Office; Order Comments:FIBROSCAN; Due:16Jul2022;Ordered; For:Cirrhosis, Fatty (change of) liver, not elsewhere classified, Thrombocytopenia; Ordered By:Juan F Savage; Radiologist to Determine Optimal Study : Y What are the patient's signs and symptoms? : FATTY LIVER PT/INR; Status:Active; Requested for:17Apr2022; Perform:Lab Services - Lab To Draw (Blood Test); Due:16Jul2022;Ordered; For:Cirrhosis, Fatty (change of) liver, not elsewhere classified, Thrombocytopenia; Ordered By:Juan F Savage; PT/INR; Status:Hold For - Exact Date; Requested for:; Perform:Lab Services - Lab To Draw (Blood Test); Due:16Jul2022;Ordered; For:Cirrhosis, Fatty (change of) liver, not elsewhere classified, Thrombocytopenia; Ordered By:Juan F Savage; Ultrasound Liver Radiology; Status:Hold For - Scheduling,Exact Date; Requested for:; Perform: Radiology Services Imaging; Due:16Jul2022;Ordered; For:Cirrhosis, Fatty (change of) liver, not elsewhere classified, Thrombocytopenia; Ordered By:Juan F Savage; Radiologist to Determine Optimal Study : Y What are the patient's signs and symptoms? : FATTY LIVER Ultrasound Liver Radiology; Status:Hold For - Scheduling; Requested for:17Apr2022; Perform: Radiology Services Imaging; Due:[id number];Ordered; For:Cirrhosis, Fatty (change of) liver, not elsewhere classified, Thrombocytopenia; Ordered By:Juan F Savage; Radiologist to Determine Optimal Study : Y What are the patient's signs and symptoms? : HCC SURVEILLANCE Patient Discussion/Summary Adhere to a low salt diet less than 2 grams of sodium per day Watch for signs of liver disease worsening including swelling in the abdomen and legs, confusion or excessive sleepiness, vomiting or seeing blood in the stools or having black tarry stools. Have blood work and ultrasound every 6 months to check for liver cancer return to the office in 6 months Provider Impressions We will order MELD/US/AFP every 6 months to assess liver function and survey for hepatocellular carcinoma We will see this patient in 6 months The patient was counseled on a low sodium diet and watching for signs and symptoms of decompensation including ascites, lower extremity edema, cognitive impairment and GI bleeding. 30 minutes spent discussing condition, explaining results of tests and formulating plan of care Chief Complaint A telephone visit (audio only) between the patient (at the originating site) and the provider (at the distant site) was utilized to provide this telehealth service. carrasco cirrhosis History of Present Illnessshe vasquez (more content not included)... Normal [employer] MICROALB CREAT RATIO RANDOMo n 04-12-2022 mALB 5.0 mg/L Normal <=30.0 [facility] Comment on above: Performed By: #### C XWND #### [facility] [address] [address] [address] Jd Humphrey MALB CR RATIO 17.2 mg/g Normal 0.0-29.9 [facility] Comment on above: Performed By: #### C XWND #### [facility] [address] [address] [address] Jd Humphrey MALB CR RATIO RANGE SEE BELOW Normal [facility] Comment on above: Result Comment: NO M ICROALBUMINURIA 0-29 MG/G CLINICAL MICROALBUMINURIA 30-300 MG/G MACROALBUMINURIA >300 MG/G Performed By: #### C XWND #### [facility] [address] [address] [address] Jd Humphrey URINE CREAT 290.16 mg/dL Normal 20.00-300.00 [facility] Comment on above: Performed By: #### C XWND #### [facility] [address] [place] [address] Dr. Jd Humphrey CBC AUTO DIFFon 03-21-2022 BASO # 0.0 103/ul Normal 0.0-0.1 [facility] Comment on above: Performed By: #### C XWND #### [facility] [address] [place] [address] Dr. Jd Humphrey Basophils/100 WBC (Bld) 0.6 % Normal 0.2-2.0 [facility] Comment on above: Performed By: #### C XWND #### [facility] [address] [place] [address] Dr. Jd Humphrey EO # 0.2 103/ul Normal 0.0-0.7 [facility] Comment on above: Performed By: #### C XWND #### [facility] [address] [place] [address] Dr. Jd Humphrey Eosinophils/100 WBC (Bld) 3.8 % Normal 0.9-7.0 [facility] Comment on above: Performed By: #### C XWND #### [facility] [address] [place] [address] Dr. Jd Humphrey Erythrocyte distribution width (RBC) [Ratio] 13.1 % Normal 11.0-15.0 [facility] Comment on above: Performed By: #### C XWND #### [facility] [address] [place] [address] Dr. Jd Humphrey Hematocrit (Bld) [Volume fraction] 41.9 % Normal 36.0-48.0 [facility] Comment on above: Performed By: #### C XWND #### [facility] [address] [place] [address] Dr. Jd Humphrey Hemoglobin (Bld) [Mass/Vol] 14.0 g/dL Normal 12.0-16.0 [facility] Comment on above: Performed By: #### C XWND #### [facility] [address] [place] [address] Dr. Jd Humphrey IG # 0.03 10e3/ul Normal 0.00-0.03 [facility] Comment on above: Performed By: #### C XWND #### [facility] [address] [place] [address] Dr. Jd Humphrey IG % 0.6 % Critically high 0.0-0.5 [facility] Comment on above: Performed By: #### C XWND #### [facility] [address] [place] [address] Dr. Jd Humphrey LYMPH # 1.1 103/ul Critically low 1.2-3.8 [facility] Comment on above: Performed By: #### C XWND #### [facility] [address] [place] [address] Dr. Jd Humphrey Lymphocytes/100 WBC (Bld) 20.1 % Critically low 20.5-60.0 [facility] Comment on above: Performed By: #### C XWND #### [facility] [address] [place] [address] Dr. Jd Humphrey MANUAL DIFF REQ NO Normal [facility] Comment on above: Performed By: #### C XWND #### [facility] [address] [place] [address] Dr. Jd Humphrey MCH (RBC) [Entitic mass] 28.9 pg Normal 26.7-34.0 [facility] Comment on above: Performed By: #### C XWND #### [facility] [address] [place] [address] Dr. Jd Humphrey MCHC (RBC) [Mass/Vol] 33.4 g/dL Normal 29.9-35.[address] [facility] Comment on above: Performed By: #### C XWND #### [facility] [address] [place] [address] Dr. Jd Humphrey MCV (RBC) [Entitic vol] 86.4 fL Normal 81.0-99.0 [facility] Comment on above: Performed By: #### C XWND #### [facility] [address] [address] [address] Jd Humphrey MONO # 0.5 103/ul Normal 0.3-0.[address] [facility] Comment on above: Performed By: #### C XWND #### [facility] [address] [place] [address] Dr. Jd Humphrey Monocytes/100 WBC (Bld) 8.8 % Normal 1.7-12.[address] [facility] Comment on above: Performed By: #### C XWND #### [facility] [address] [place] [address] Dr. Jd Humphrey NEUT # 3.5 103/ul Normal 1.4-6.[address] [facility] Comment on above: Performed By: #### C XWND #### [facility] [address] [place] [address] Dr. Jd Humphrey Neutrophils/100 WBC (Bld) 66.1 % Normal 43.0-75.[address] [facility] Comment on above: Performed By: #### C XWND #### [facility] [address] [place] [address] Dr. Jd Humphrey Platelet mean volume (Bld) [Entitic vol] 11.2 fL Normal 9.5-13.[address] [facility] Comment on above: Performed By: #### C XWND #### [facility] [address] [place] [address] Dr. Jd Humphrey PLT 115 103/ul Critically low 150-[address] [facility] Comment on above: Result Comment: SOME LARGE PLATELETS SEEN, BUT NO PLT CLUMPING AND PLT NUMBER APPEARS NORMAL ON PERIPHERAL SMEAR Performed By: #### C XWND #### [facility] [address] [place] [address] Dr. Jd Humphrey RBC 4.85 106/ul Normal 4.20-5.[address] [facility] Comment on above: Performed By: #### C XWND #### [facility] [address] [place] [address] Dr. Jd Humphrey WBC 5.2 103/ul Normal 4.0-11.[address] [facility] Comment on above: Performed By: #### C XWND #### [facility] [address] [place] [address] Dr. Jd Humphrey CREATININEon 03-21-2022 Creatinine [Mass/Vol] 0.61 mg/dL Normal 0.55-1.02 [facility] Comment on above: Performed By: #### C VDTBH #### [facility] [address] [place] [address] Dr. Jd Humphrey EGFR-AF SINGAPOREAN >60 Normal >=60 [facility] Comment on above: Performed By: #### C VDTBH #### [facility] [address] [place] [address] Dr. Jd Humphrey Performed By: #### D DIM #### [facility] [address] [place] [address] Dr. Jd Humphrey EGFR-NON AF SINGAPOREAN >60 Normal >=60 [facility] Comment on above: Performed By: #### C VDTBH #### [facility] [address] [place] [address] Dr. Jd Humphrey Performed By: #### D DIM #### [facility] [address] [place] [address] Dr. Jd Humphrey LIPID PROFILEon 03-21-2022 CHOL-HDL RATIO NORM SEE BELOW Normal [facility] Comment on above: Result Comment: 3.3 - 4.4 LOW RISK 4.4 - 7.1 AVERAGE RISK 7.1 - 11.0 MODERATE RISK >11.0 HIGH RISK Performed By: #### D DIM #### [facility] [address] [place] [address] Dr. Jd Humphrey Cholesterol [Mass/Vol] 259 mg/dL Critically high <=200 [facility] Comment on above: Performed By: #### D DIM #### [facility] [address] [place] [address] Dr. Jd Humphrey Cholesterol in HDL [Mass/Vol] 79 mg/dL Critically high 40-60 [facility] Comment on above: Performed By: #### D DIM #### [facility] [address] [place] [address] Dr. Jd Humphrey Cholesterol in LDL [Mass/Vol] 165.6 mg/dL Normal [facility] Comment on above: Performed By: #### D DIM #### [facility] [address] [address] [address] Jd Humphrey Cholesterol.total/Cho lesterol in HDL [Mass ratio] 3.3 {ratio} Normal [facility] Comment on above: Performed By: #### D DIM #### [facility] [address] [address] [address] Jd Humphrey HDL NORMAL > or = 60 mg/dl - LO W CARDIOVASCULAR RISK <40 mg/dl - HIGH CARDIOVASCULAR RISK Normal [facility] Comment on above: Performed By: #### D DIM #### [facility] [address] [address] [address] Jd Humphrey LDL CALC NORMAL SEE BELOW Normal [facility] Comment on above: Result Comment: <100 mg/dl OPTIMAL 100 - 129 mg/dl NEAR OR ABOVE OPTIMAL 130 - 159 mg/dl BORDERLINE HIGH 160 - 189 mg/dl HIGH >190 mg/dl VERY HIGH Performed By: #### D DIM #### [facility] [address] [address] [address] Jd Humphrey Triglyceride [Mass/Vol] 72 mg/dL Normal <=150 [facility] Comment on above: Performed By: #### D DIM #### [facility] [address] [address] [address] Jd Humphrey VLDL CALC 14.4 mg/dL Normal [facility] Comment on above: Performed By: #### D DIM #### [facility] [address] [address] [address] Jd Humphrey LIVER PROFILEon 03-21-2022 Albumin [Mass/Vol] 3.7 g/dL Normal 3.4-5.[address] [facility] Comment on above: Performed By: #### C VDTBH #### [facility] [address] [place] [address] Dr. Jd Humphrey Albumin/Globulin [Mass ratio] 1.1 {ratio} Normal [facility] Comment on above: Performed By: #### C VDTBH #### [facility] [address] [place] [address] Dr. Jd Humphrey ALP [Catalytic activity/Vol] 98 U/L Normal 46-[address] [facility] Comment on above: Performed By: #### C VDTBH #### [facility] [address] [place] [address] Dr. Jd Humphrey Performed By: #### D DIM #### [facility] [address] [place] [address] Dr. Jd Humphrey ALT [Catalytic activity/Vol] 32 U/L Normal 14-59 [facility] Comment on above: Performed By: #### C VDTBH #### [facility] [address] [place] [address] Dr. Jd Humphrey AST [Catalytic activity/Vol] 19 U/L Normal 15-37 [facility] Comment on above: Performed By: #### C VDTBH #### [facility] [address] [place] [address] Dr. Jd Humphrey BILI, CONJUGATED 0.1 mg/dL Normal 0.0-0.2 [facility] Comment on above: Performed By: #### C VDTBH #### [facility] [address] [place] [address] Dr. Jd Humphrey Bilirubin [Mass/Vol] 0.4 mg/dL Normal 0.2-1.0 [facility] Comment on above: Performed By: #### C VDTBH #### [facility] [address] [place] [address] Dr. Jd Humphrey Performed By: #### D DIM #### [facility] [address] [place] [address] Dr. Jd Humphrey Globulin (S) [Mass/Vol] 3.4 g/dL Normal [facility] Comment on above: Performed By: #### C VDTBH #### [facility] [address] [place] [address] Dr. Jd Humphrey Protein [Mass/Vol] 7.1 g/dL Normal 6.4-8.2 [facility] Comment on above: Performed By: #### C VDTBH #### [facility] [address] [place] [address] Dr. Jd Humphrey Performed By: #### D DIM #### [facility] [address] [place] [address] Dr. Jd Humphrey PROF 14(COMP METB)on 022 Albumin [Mass/Vol] 3.8 g/dL Normal 3.4-5.0 [facility] Comment on above: Performed By: #### D DIM #### [facility] [address] [place] [address] Dr. Jd Humphrey Albumin/Globulin [Mass ratio] 1.2 {ratio} Normal [facility] Comment on above: Performed By: #### D DIM #### [facility] [address] [place] [address] Dr. Jd Humphrey ALT [Catalytic activity/Vol] 31 U/L Normal 14-59 [facility] Comment on above: Performed By: #### D DIM #### [facility] [address] [place] [address] Dr. Jd Humphrey Anion gap [Moles/Vol] 10.7 mmol/L Normal [facility] Comment on above: Performed By: #### D DIM #### [facility] [address] [place] [address] Dr. Jd Humphrey AST [Catalytic activity/Vol] 14 U/L Critically low 15-37 [facility] Comment on above: Performed By: #### D DIM #### [facility] [address] [place] [address] Dr. Jd Humphrey Calcium [Mass/Vol] 9.4 mg/dL Normal 8.5-10.[address] [facility] Comment on above: Performed By: #### D DIM #### [facility] [address] [place] [address] Dr. Jd Humphrey Chloride [Moles/Vol] 101 mmol/L Normal 98-107 [facility] Comment on above: Performed By: #### D DIM #### [facility] [address] [place] [address] Dr. Jd Humphrey CO2 [Moles/Vol] 28.2 mmol/L Normal 21.0-32.0 [facility] Comment on above: Performed By: #### D DIM #### [facility] [address] [address] [address] Jd Humphrey Creatinine [Mass/Vol] 0.63 mg/dL Normal 0.55-1.02 [facility] Comment on above: Performed By: #### D DIM #### [facility] [address] [address] [address] Jd Humphrey Globulin (S) [Mass/Vol] 3.3 g/dL Normal [facility] Comment on above: Performed By: #### D DIM #### [facility] [address] [place] [address] Dr. Jd Humphrey Glucose [Mass/Vol] 250 mg/dL Critically high 74-106 [facility] Comment on above: Performed By: #### D DIM #### [facility] [address] [place] [address] Dr. Jd Humphrey Potassium [Moles/Vol] 3.9 mmol/L Normal 3.5-5.1 [facility] Comment on above: Performed By: #### D DIM #### [facility] [address] [place] [address] Dr. Jd Humphrey Sodium [Moles/Vol] 136 mmol/L Normal 136-145 [facility] Comment on above: Performed By: #### D DIM #### [facility] [address] [place] [address] Dr. Jd Humphrey Urea nitrogen [Mass/Vol] 14.0 mg/dL Normal 7.0-18.0 [facility] Comment on above: Performed By: #### D DIM #### [facility] [address] [place] [address] Dr. Jd Humphrey Urea nitrogen/Creatinine [Mass ratio] 22.2 mg/mg Normal [facility] Comment on above: Performed By: #### D DIM #### [facility] [address] [place] [address] Dr. Jd Humphrey SED RATE [facility] 2021 SED RATE 18 mm/hr Normal <=30 [facility] Comment on above: Performed By: #### C VDTBH #### [facility] [address] [address] [address] Jd Humphrey ACID FAST SMEAR AND CXon Acid Fast Culture Negative Normal [facility] Comment on above: Result Comment: No a lakesha fast bacilli isolated after 6 weeks. Performed By: #### B MP #### [facility] [address] [place] [address] Dr. Jd Humphrey Acid Fast Smear Negative Normal [facility] Comment on above: Performed By: #### B MP #### [facility] [address] [place] [address] Dr. Jd Humphrey AFB Specimen Processing Tissue Grinding [facility] Comment on above: Performed By: #### B MP #### [facility] [address] [place] [address] Dr. Jd Humphrey FUNGAL CULTUREon 01-27-2022 Fungus (Mycology) Culture Final report [facility] Comment on above: Performed By: #### C XWND #### [facility] [address] [place] [address] Dr. Jd Humphrey Fungus Stain Final report Normal [facility] Comment on above: Performed By: #### C XWND #### [facility] [address] [place] [address] Dr. Jd Humphrey Result [address] [facility] Comment on above: Result Comment: DWIGHT/ Calcofluor preparation: no fungus observed. Performed By: #### C XWND #### [facility] [address] [place] [address] Dr. Jd Humphrey Result Comment: No y east or mold isolated after 4 weeks. TISSUE CULTUREon 01-12-2022 Anaerobic Culture, Extended Incubation Final report Normal [facility] Comment on above: Performed By: #### C XWND #### [facility] [address] [place] [address] Dr. Jd Humphrey Result [address] [facility] Comment on above: Result Comment: No g rowth in 56 - 72 hours. Performed By: #### C XWND #### [facility] [address] [place] [address] Dr. Jd Humphrey Result Comment: No g rowth after 14 days. Tissue Culture Final report Normal [facility] Comment on above: Performed By: #### C XWND #### [facility] [address] [place] [address] Dr. Jd Humphrey WOUND CULTUREon 01-02-2022 Antimicrobial Susceptibility Comment Normal [facility] Comment on above: Result Comment: S = Susceptible; I = Intermediate; R = Resistant P = Positive; N = Negative MICS are expressed in micrograms per mL Antibiotic RSLT#1 RSLT#2 RSLT#3 RSLT#4 Ampicillin R Cefazolin R Cefepime S Ceftriaxone S Cefuroxime S Ciprofloxacin S Gentamicin S Imipenem R Levofloxacin S Meropenem S Piperacillin/Tazobactam S Tetracycline R Tobramycin S Performed By: #### C XWND #### [facility] [address] [place] [address] Dr. Jd Humphrey Result Comment: S = Susceptible; I = Intermediate; R = Resistant P = Positive; N = Negative MICS are expressed in micrograms per mL Antibiotic RSLT#1 RSLT#2 RSLT#3 RSLT#4 Ampicillin R Cefazolin R Cefepime S Ceftriaxone I Cefuroxime S Ciprofloxacin S Gentamicin S Imipenem I Levofloxacin S Meropenem S Piperacillin/Tazobactam S Tetracycline R Tobramycin S Performed By: #### C VDTBH #### [facility] [address] [place] [address] Dr. Jd Humphrey Bacteria identified Aer cx Nom (Unsp spec) Final report Abnormal [facility] Comment on above: Performed By: #### C XWND #### [facility] [address] [place] [address] Dr. Jd Humphrey Performed By: #### C VDTBH #### [facility] [address] [place] [address] Dr. Jd Humphrey Result [address] [facility] Comment on above: Result Comment: Olimpia urbina growth Performed By: #### C XWND #### [facility] [address] [place] [address] Dr. Jd Humphrey Result Comment: Mult i-Drug Resistant Organism Light growth Performed By: #### C VDTBH #### [facility] [address] [place] [address] Dr. Jd Humphrey CBC AUTO DIFFon 12-30-2021 BASO # 0.0 103/ul Normal 0.0-0.1 [facility] Comment on above: Performed By: #### C XWND #### [facility] [address] [place] [address] Dr. Jd Humphrey Basophils/100 WBC (Bld) 0.7 % Normal 0.2-2.0 [facility] Comment on above: Performed By: #### C XWND #### [facility] [address] [place] [address] Dr. Jd Humphrey EO # 0.2 103/ul Normal 0.0-0.7 [facility] Comment on above: Performed By: #### C XWND #### [facility] [address] [place] [address] Dr. Jd Humphrey Eosinophils/100 WBC (Bld) 3.3 % Normal 0.9-7.0 [facility] Comment on above: Performed By: #### C XWND #### [facility] [address] [place] [address] Dr. Jd Humphrey Erythrocyte distribution width (RBC) [Ratio] 12.1 % Normal 11.0-15.0 [facility] Comment on above: Performed By: #### C XWND #### [facility] [address] [place] [address] Dr. Jd Humphrey Hematocrit (Bld) [Volume fraction] 39.4 % Normal 36.0-48.0 [facility] Comment on above: Performed By: #### C XWND #### [facility] [address] [place] [address] Dr. Jd Humphrey Hemoglobin (Bld) [Mass/Vol] 13.6 g/dL Normal 12.0-16.0 [facility] Comment on above: Performed By: #### C XWND #### [facility] [address] [place] [address] Dr. Jd Humphrey IG # 0.01 10e3/ul Normal 0.00-0.03 [facility] Comment on above: Performed By: #### C XWND #### [facility] [facility] [address] [place] [address] Dr. Jd Humphrey IG % 0.2 % Normal 0.0-0.5 [facility] Comment on above: Performed By: #### C XWND #### [facility] [address] [place] [address] Dr. Jd Humphrey LYMPH # 1.0 103/ul Critically low 1.2-3.8 [facility] Comment on above: Performed By: #### C XWND #### [facility] [address] [place] [address] Dr. Jd Humphrey Lymphocytes/100 WBC (Bld) 22.7 % Normal 20.5-60.0 [facility] Comment on above: Performed By: #### C XWND #### [facility] [address] [place] [address] Dr. Jd Humphrey MANUAL DIFF REQ NO Normal [facility] Comment on above: Performed By: #### C XWND #### [facility] [address] [place] [address] Dr. Jd Humphrey MCH (RBC) [Entitic mass] 29.1 pg Normal 26.7-34.0 [facility] Comment on above: Performed By: #### C XWND #### [facility] [address] [place] [address] Dr. Jd Humphrey MCHC (RBC) [Mass/Vol] 34.5 g/dL Normal 29.9-35.2 [facility] Comment on above: Performed By: #### C XWND #### [facility] [address] [place] [address] Dr. Jd Humphrey MCV (RBC) [Entitic vol] 84.2 fL Normal 81.0-99.0 [facility] Comment on above: Performed By: #### C XWND #### [facility] [address] [address] [address] Jd Humphrey MONO # 0.4 103/ul Normal 0.3-0.8 [facility] Comment on above: Performed By: #### C XWND #### [facility] [address] [place] [address] Dr. Jd Humphrey Monocytes/100 WBC (Bld) 9.6 % Normal 1.7-12.0 [facility] Comment on above: Performed By: #### C XWND #### [facility] [address] [place] [address] Dr. Jd Humphrey NEUT # 2.9 103/ul Normal 1.4-6.5 [facility] Comment on above: Performed By: #### C XWND #### [facility] [address] [place] [address] Dr. Jd Humphrey Neutrophils/100 WBC (Bld) 63.5 % Normal 43.0-75.0 [facility] Comment on above: Performed By: #### C XWND #### [facility] [address] [place] [address] Dr. Jd Humphrey Platelet mean volume (Bld) [Entitic vol] 11.1 fL Normal 9.5-13.5 [facility] Comment on above: Performed By: #### C XWND #### [facility] [address] [place] [address] Dr. Jd Humphrey PLT 122 103/ul Critically low 150-[address] [facility] Comment on above: Performed By: #### C XWND #### [facility] [address] [place] [address] Dr. Jd Humphrey RBC 4.68 106/ul Normal 4.20-5.[address] [facility] Comment on above: Performed By: #### C XWND #### [facility] [address] [place] [address] Dr. Jd Humphrey WBC 4.6 103/ul Normal 4.0-11.0 [facility] Comment on above: Performed By: #### C XWND #### [facility] [address] [place] [address] Dr. Jd Humphrey POINT OF CARE GLUCOSEon 07-0 Glucose [Mass/Vol] 138 mg/dL Critically high 74-106 [facility] Comment on above: Performed By: #### C VDTBH #### [facility] [address] [place] [address] Dr. Jd Humphrey Glucose [Mass/Vol] 104 mg/dL Normal 74-106 [facility] Comment on above: Performed By: #### D DIM #### [facility] [address] [place] [address] Dr. Jd Humphrey PROF CHEM 8 (BAS METB)on Anion gap [Moles/Vol] 11.0 mmol/L Normal [facility] Comment on above: Performed By: #### B MP #### [facility] [address] [place] [address] Dr. Jd Humphrey Calcium [Mass/Vol] 8.8 mg/dL Normal 8.5-10.1 [facility] Comment on above: Performed By: #### B MP #### [facility] [address] [place] [address] Dr. Jd Humphrey Chloride [Moles/Vol] 106 mmol/L Normal 98-107 [facility] Comment on above: Performed By: #### B MP #### [facility] [address] [place] [address] Dr. Jd Humphrey CO2 [Moles/Vol] 25.7 mmol/L Normal 21.0-32.0 [facility] Comment on above: Performed By: #### B MP #### [facility] [address] [place] [address] Dr. Jd Humphrey Creatinine [Mass/Vol] 0.56 mg/dL Normal 0.55-1.02 [facility] Comment on above: Performed By: #### B MP #### [facility] [address] [place] [address] Dr. Jd Humphrey EGFR-AF SINGAPOREAN >60 Normal >=60 [facility] Comment on above: Performed By: #### B MP #### [facility] [address] [place] [address] Dr. Jd Humphrey EGFR-NON AF SINGAPOREAN >60 Normal >=60 [facility] Comment on above: Performed By: #### B MP #### [facility] [address] [address] [address] Jd Humphrey Glucose [Mass/Vol] 97 mg/dL Normal 74-[address] [facility] Comment on above: Performed By: #### B MP #### [facility] [address] [place] [address] Dr. Jd Humphrey Potassium [Moles/Vol] 3.7 mmol/L Normal 3.5-5.1 [facility] Comment on above: Performed By: #### B MP #### [facility] [address] [place] [address] Dr. Jd Humphrey Sodium [Moles/Vol] 139 mmol/L Normal 136-[address] [facility] Comment on above: Performed By: #### B MP #### [facility] [address] [place] [address] Dr. Jd Humphrey Urea nitrogen [Mass/Vol] 10.0 mg/dL Normal 7.0-18.0 [facility] Comment on above: Performed By: #### B MP #### [facility] [address] [place] [address] Dr. Jd Humphrey Urea nitrogen/Creatinine [Mass ratio] 17.9 mg/mg Normal [facility] Comment on above: Performed By: #### B MP #### [facility] [address] [place] [address] Dr. Jd Humphrey VANCOMYCIN TROUGHon 12-31-19 VANCOMYCIN TROUGH 10.2 ug/ml Normal 5.0-20.0 [facility] Comment on above: Performed By: #### C VDTB #### [facility] [address] [place] [address] Dr. Jd Humphrey CBC AUTO DIFFon 12-29-2021 BASO # 0.0 103/ul Normal 0.0-0.1 [facility] Comment on above: Performed By: #### D DIM #### [facility] [address] [place] [address] Dr. Jd Humphrey Basophils/100 WBC (Bld) 0.5 % Normal 0.2-2.0 [facility] Comment on above: Performed By: #### D DIM #### [facility] [address] [place] [address] Dr. Jd Humphrey EO # 0.2 103/ul Normal 0.0-0.[address] [facility] Comment on above: Performed By: #### D DIM #### [facility] [address] [place] [address] Dr. Jd Humphrey Eosinophils/100 WBC (Bld) 4.7 % Normal 0.9-7.0 [facility] Comment on above: Performed By: #### D DIM #### [facility] [address] [place] [address] Dr. Jd Humphrey Erythrocyte distribution width (RBC) [Ratio] 12.3 % Normal 11.0-15.0 [facility] Comment on above: Performed By: #### D DIM #### [facility] [address] [place] [address] Dr. Jd Humphrey Hematocrit (Bld) [Volume fraction] 37.2 % Normal 36.0-48.0 [facility] Comment on above: Performed By: #### D DIM #### [facility] [address] [place] [address] Dr. Jd Humphrey Hemoglobin (Bld) [Mass/Vol] 12.8 g/dL Normal 12.0-16.0 [facility] Comment on above: Performed By: #### D DIM #### [facility] [address] [place] [address] Dr. Jd Humphrey IG # 0.01 10e3/ul Normal 0.00-0.03 [facility] Comment on above: Performed By: #### D DIM #### [facility] [address] [place] [address] Dr. Jd Humphrey IG % 0.3 % Normal 0.0-0.[address] [facility] Comment on above: Performed By: #### D DIM #### [facility] [address] [place] [address] Dr. Jd Humphrey LYMPH # 1.0 103/ul Critically low 1.2-3.8 [facility] Comment on above: Performed By: #### D DIM #### [facility] [address] [place] [address] Dr. Jd Humphrey Lymphocytes/100 WBC (Bld) 26.1 % Normal 20.5-60.0 [facility] Comment on above: Performed By: #### D DIM #### [facility] [address] [place] [address] Dr. Jd Humphrey MANUAL DIFF REQ NO Normal [facility] Comment on above: Performed By: #### D DIM #### [facility] [address] [place] [address] Dr. Jd Humphrey MCH (RBC) [Entitic mass] 29.1 pg Normal 26.7-34.0 [facility] Comment on above: Performed By: #### D DIM #### [facility] [address] [place] [address] Dr. Jd Humphrey MCHC (RBC) [Mass/Vol] 34.4 g/dL Normal 29.9-35.2 [facility] Comment on above: Performed By: #### D DIM #### [facility] [address] [place] [address] Dr. Jd Humphrey MCV (RBC) [Entitic vol] 84.5 fL Normal 81.0-99.[address] [facility] Comment on above: Performed By: #### D DIM #### [facility] [address] [place] [address] Dr. Jd Humphrey MONO # 0.4 103/ul Normal 0.3-0.[address] [facility] Comment on above: Performed By: #### D DIM #### [facility] [address] [place] [address] Dr. Jd Humphrey Monocytes/100 WBC (Bld) 11.0 % Normal 1.7-12.0 [facility] Comment on above: Performed By: #### D DIM #### [facility] [address] [address] [address] Jd Humphrey NEUT # 2.1 103/ul Normal 1.4-6.[address] [facility] Comment on above: Performed By: #### D DIM #### [facility] [address] [place] [address] Dr. Jd Humphrey Neutrophils/100 WBC (Bld) 57.4 % Normal 43.0-75.[address] [facility] Comment on above: Performed By: #### D DIM #### [facility] [address] [place] [address] Dr. Jd Humphrey Platelet mean volume (Bld) [Entitic vol] 11.2 fL Normal 9.5-13.[address] [facility] Comment on above: Performed By: #### D DIM #### [facility] [address] [place] [address] Dr. Jd Humphrey PLT 106 103/ul Critically low 150-450 [facility] Comment on above: Performed By: #### D DIM #### [facility] [address] [place] [address] Dr. Jd Humphrey RBC 4.40 106/ul Normal 4.20-5.[address] [facility] Comment on above: Performed By: #### D DIM #### [facility] [address] [place] [address] Dr. Jd Humphrey WBC 3.6 103/ul Critically low 4.0-11.0 [facility] Comment on above: Performed By: #### D DIM #### [facility] [address] [place] [address] Dr. Jd Humphrey POINT OF CARE GLUCOSEon 06-3 0-2021 Glucose [Mass/Vol] 95 mg/dL Normal 74-[address] [facility] Comment on above: Performed By: #### B MP #### [facility] [address] [place] [address] Dr. Jd Humphrey Glucose [Mass/Vol] 78 mg/dL Normal 74-[address] [facility] Comment on above: Performed By: #### P OCGLUC #### [facility] [address] [place] [address] Dr. Jd Humphrey Glucose [Mass/Vol] 94 mg/dL Normal 74-106 [facility] Comment on above: Performed By: #### P OCGLUC #### [facility] [address] [place] [address] Dr. Jd Humphrey Glucose [Mass/Vol] 94 mg/dL Normal 74-106 [facility] Comment on above: Performed By: #### D DIM #### [facility] [address] [place] [address] Dr. Jd Humphrey PROF CHEM 8 (BAS METB)on Anion gap [Moles/Vol] 6.1 mmol/L Normal [facility] Comment on above: Performed By: #### B MP #### [facility] [address] [place] [address] Dr. Jd Humphrey Calcium [Mass/Vol] 8.2 mg/dL Critically low 8.5-10.1 [facility] Comment on above: Performed By: #### B MP #### [facility] [address] [place] [address] Dr. Jd Humphrey Chloride [Moles/Vol] 109 mmol/L Critically high 98-107 [facility] Comment on above: Performed By: #### B MP #### [facility] [address] [place] [address] Dr. Jd Humphrey CO2 [Moles/Vol] 26.4 mmol/L Normal 21.0-32.0 [facility] Comment on above: Performed By: #### B MP #### [facility] [address] [place] [address] Dr. Jd Humphrey Creatinine [Mass/Vol] 0.60 mg/dL Normal 0.55-1.02 [facility] Comment on above: Performed By: #### B MP #### [facility] [address] [place] [address] Dr. Jd Humphrey EGFR-AF SINGAPOREAN >60 Normal >=60 [facility] Comment on above: Performed By: #### B MP #### [facility] [address] [place] [address] Dr. Jd Humphrey EGFR-NON AF SINGAPOREAN >60 Normal >=60 [facility] Comment on above: Performed By: #### B MP #### [facility] [address] [address] [address] Jd Humphrey Glucose [Mass/Vol] 97 mg/dL Normal 74-106 [facility] Comment on above: Performed By: #### B MP #### [facility] [address] [address] [address] Jd Humphrey Potassium [Moles/Vol] 3.5 mmol/L Normal 3.5-5.1 [facility] Comment on above: Performed By: #### B MP #### [facility] [address] [address] [address] Jd Humphrey Sodium [Moles/Vol] 138 mmol/L Normal 136-145 [facility] Comment on above: Performed By: #### B MP #### [facility] [address] [address] [address] Jd Humphrey Urea nitrogen [Mass/Vol] 12.0 mg/dL Normal 7.0-18.0 [facility] Comment on above: Performed By: #### B MP #### [facility] [address] [address] [address] Jd Humphrey Urea nitrogen/Creatinine [Mass ratio] 20.0 mg/mg Normal [facility] Comment on above: Performed By: #### B MP #### [facility] [address] [address] [address] Jd Humphrey XR CSPINE OBL FLEX_EXTon XR CSPINE OBL FLEX_EXT EXAMINATION: XR CSPINE OBL FLEX_EXT HISTORY: Rheumatoid arthritis COMPARISON: No relevant comparison available. FINDINGS: BONES: Neutral projection demonstrates straightening of normal cervical lordosis. No acute fracture, spondylolisthesis or mechanical failure. Anterior fusion C6-C7. Mild to moderate degenerative spondylosis. Moderate to severe diffuse facet osteoarthropathy DISC SPACES: Multilevel disc space narrowing. Interbody fusion C6-C7 PARASPINOUS: Negative. No paraspinous abnormality is seen. OTHER: No transient spondylolisthesis with flexion or extension. Limited range of motion IMPRESSION: Moderate diffuse degenerative changes No dynamic instability Electronically authenticated by: TAMIKO BYNUM Date: 2021-12-29 08:48 Normal [facility] CBC W MANUAL DIFFon 12-29-19 22 ATYPICAL LYMPH # 0.00 103/ul Normal [facility] Comment on above: Performed By: #### C XWND #### [facility] [address] [place] [address] Dr. Jd Humphrey ATYPICAL LYMPH % 0 % Normal [facility] Comment on above: Performed By: #### C XWND #### [facility] [address] [place] [address] Dr. Jd Humphrey BAND # Normal 0.0-0.3 [facility] Comment on above: Performed By: #### C XWND #### [facility] [address] [place] [address] Dr. Jd Humphrey BAND % Normal 0-5 [facility] Comment on above: Performed By: #### C XWND #### [facility] [address] [place] [address] Dr. Jd Humphrey BASOM # 0.00 103/ul Normal 0.00-0.10 [facility] Comment on above: Performed By: #### C XWND #### [facility] [address] [place] [address] Dr. Jd Humphrey BASOM % 0.0 % Critically low 0.2-2.0 [facility] Comment on above: Performed By: #### C XWND #### [facility] [address] [place] [address] Dr. Jd Humphrey BLAST # Normal [facility] Comment on above: Performed By: #### C XWND #### [facility] [address] [place] [address] Dr. Jd Humphrey BLAST % Normal [facility] Comment on above: Performed By: #### C XWND #### [facility] [address] [place] [address] Dr. Jd Humphrey CORRECTED WBC Normal 4.0-11.0 [facility] Comment on above: Performed By: #### C XWND #### [facility] [address] [place] [address] Dr. Jd Humphrey EOS # 0.14 103/ul Normal 0.00-0.70 [facility] Comment on above: Performed By: #### C XWND #### [facility] [address] [place] [address] Dr. Jd Humphrey EOS% 2.0 % Normal 0.9-7.0 [facility] Comment on above: Performed By: #### C XWND #### [facility] [address] [place] [address] Dr. Jd Humphrey HCT 46.0 % Normal 36.0-48.0 [facility] Comment on above: Performed By: #### C XWND #### [facility] [address] [place] [address] Dr. Jd Humphrey HGB 15.8 g/dl Normal 12.0-16.0 [facility] Comment on above: Performed By: #### C XWND #### [facility] [address] [place] [address] Dr. Jd Humphrey LYMPHM # 0.69 103/ul Critically low 1.20-3.80 [facility] Comment on above: Performed By: #### C XWND #### [facility] [address] [place] [address] Dr. Jd Humphrey LYMPHM% 10.0 % Critically low 20.5-60.0 [facility] Comment on above: Performed By: #### C XWND #### [facility] [address] [place] [address] Dr. Jd Humphrey MCH 28.8 pg Normal 26.7-34.[address] [facility] Comment on above: Performed By: #### C XWND #### [facility] [address] [place] [address] Dr. Jd Humphrey MCHC 34.3 g/dl Normal 29.9-35.2 [facility] Comment on above: Performed By: #### C XWND #### [facility] [address] [place] [address] Dr. Jd Humphrey MCV 83.8 fL Normal 81.0-99.0 [facility] Comment on above: Performed By: #### C XWND #### [facility] [address] [place] [address] Dr. Jd Humphrey METAMYELOCYTE # Normal [facility] Comment on above: Performed By: #### C XWND #### [facility] [address] [place] [address] Dr. Jd Humphrey METAMYELOCYTE % Normal [facility] Comment on above: Performed By: #### C XWND #### [facility] [address] [place] [address] Dr. Jd Humphrey MONOM# 0.48 103/ul Normal 0.30-0.80 [facility] Comment on above: Performed By: #### C XWND #### [facility] [address] [place] [address] Dr. Jd Humphrey MONOM% 7.0 % Normal 1.7-12.0 [facility] Comment on above: Performed By: #### C XWND #### [facility] [address] [place] [address] Dr. Jd Humphrey MPV 11.2 fL Normal 9.5-13.5 [facility] Comment on above: Performed By: #### C XWND #### [facility] [address] [place] [address] Dr. Jd Humphrey MYELOCYTE # Normal [facility] Comment on above: Performed By: #### C XWND #### [facility] [address] [place] [address] Dr. Jd Humphrey MYELOCYTE % Normal [facility] Comment on above: Performed By: #### C XWND #### [facility] [address] [place] [address] Dr. Jd Humphrey NRBC Normal [facility] Comment on above: Performed By: #### C XWND #### [facility] [address] [place] [address] Dr. Jd Humphrey PLT 168 103/ul Normal 150-[address] [facility] Comment on above: Performed By: #### C XWND #### [facility] [address] [address] [address] Jd Humphrey RBC 5.49 106/ul Critically high 4.20-5.40 [facility] Comment on above: Performed By: #### C XWND #### [facility] [address] [address] [address] Jd Humphrey RDW 12.1 % Normal 11.0-15.0 [facility] Comment on above: Performed By: #### C XWND #### [facility] [address] [address] [address] Jd Humphrey SEG # 5.59 103/ul Normal 1.40-6.50 [facility] Comment on above: Performed By: #### C XWND #### [facility] [address] [place] [address] Dr. Jd Humphrey SEG % 81.0 % Critically high 43.0-75.0 [facility] Comment on above: Performed By: #### C XWND #### [facility] [address] [address] [address] Jd Humphrey WBC 6.9 103/ul Normal 4.0-11.0 [facility] Comment on above: Performed By: #### C XWND #### [facility] [address] [place] [address] Dr. Jd Humphrey CRPon 12-28-2021 CRP 1.7 mg/dL Critically high <=1.0 [facility] Comment on above: Performed By: #### P OCGLUC #### [facility] [address] [place] [address] LOWER LEG RT W CONon 12-01 CT LOWER LEG RT W CON EXAMINATION: CT LO WER LEG RT W CON HISTORY: Ulcer of foot COMPARISON: No relevant comparison available. TECHNIQUE: Multi-planar CT images were created without IV contrast. Dose reduction techniques were achieved by using automated exposure control and/or adjustment of mA and/or kV according to patient size and/or use of iterative reconstruction technique. FINDINGS: BONES: No acute fracture or dislocation. Moderate to severe tricompartmental osteoarthritis of the knee with articulation and subchondral cystic changes of the medial and the lateral compartment. Fusion the first metatarsal-phalangeal joint with a plate and multiple screws. No definite mechanical failure. Remote resection head of the second through fifth metatarsal heads. Mild to moderate degenerative changes throughout the foot with joint space narrowing and marginal osteophyte formation. Forefoot varus and hindfoot valgus. No focal lytic or sclerotic changes in the visualized bones. The first distal phalanx is not in the [id number] SOFT TISSUES: Moderate soft tissue swelling primarily along the medial and plantar first metatarsal head best seen on axial image 256, sagittal image 10. A circumscribed area of hypoattenuation measuring 1.3 x 0.9 cm axial image 256, fluid collection favored. EFFUSION: None visible. OTHER: Negative. IMPRESSION: Plantar first metatarsal head soft tissue swelling with 1.3 cm focal fluid collection possibly postoperative changes. No evidence of osteomyelitis Electronically authenticated by: TAMIKO BYNUM Date: 2021-12-28 15:[address] [facility] CULTURE BLOODon 12-28-2021 Microscopic examination of blood, culture Culture Observations: NO GROWTH AT 5 DAYS. Normal [facility] Comment on above: Performed By: #### B [id number] #### [facility] [address] [place] [address] Dr. Jd Humphrey Microscopic examination of blood, culture Culture Observations: NO GROWTH AT 5 DAYS. Normal [facility] Comment on above: Performed By: #### B MP #### [facility] [address] [place] [address] Dr. Jd Humphrey Covid-19 PCR (CVDTB)on 12-01 SARS-CoV-2 (COVID-19) RNA SHEILA+probe Ql (Unsp spec) Not detected Normal NOT DETECTED [facility] Comment on above: Result Comment: When diagnostic testing is negative, the possibility of a false negative should be considered in the context of a patient's recent exposures and the presence of clinical signs and symptoms consistent with SARS-CoV-2. This test is not yet approved or cleared by the [place] FDA. When there are no FDA-approved or cleared tests available, and other criteria are met, FDA can make tests available under an emergency access mechanism called an Emergency Use Authorization (EUA). The EUA for this test is supported by the [place] of Health and Human Service's declaration that circumstances exist to justify the emergency use of in vitro diagnostics for the detection and/or diagnosis of the virus that causes COVID-19. This EUA will remain in effect for the duration of the COVID-19 declaration justifying emergency of IVDs, unless it is terminated or revoked by the FDA (after which the test may no longer be used). Performed By: #### C VDTBH #### [facility] [address] [place] [address] Dr. Jd Humphrey LACTATE/LACTIC ACIDon 2021 Lactate [Moles/Vol] 1.6 mmol/L Normal 0.4-1.9 [facility] Comment on above: Performed By: #### D DIM #### [facility] [address] [place] [address] Dr. Jd Humphrey Lactate [Moles/Vol] 2.3 mmol/L Critically high 0.4-1.9 [facility] Comment on above: Performed By: #### D DIM #### [facility] [address] [place] [address] Dr. Jd Humphrey POINT OF CARE GLUCOSEon 12-01 Glucose [Mass/Vol] 107 mg/dL Critically high 74-106 [facility] Comment on above: Performed By: #### B MP #### [facility] [address] [place] [address] Dr. Jd Humphrey Glucose [Mass/Vol] 96 mg/dL Normal 74-106 [facility] Comment on above: Performed By: #### C XWND #### [facility] [address] [place] [address] Dr. Jd Humphrey PROF 14(COMP METB)on 022 Albumin [Mass/Vol] 4.0 g/dL Normal 3.4-5.0 [facility] Comment on above: Performed By: #### P OCGLUC #### [facility] [address] [place] [address] Dr. Jd Humphrey Albumin/Globulin [Mass ratio] 1.4 {ratio} Normal [facility] Comment on above: Performed By: #### P OCGLUC #### [facility] [address] [address] [address] Jd Humphrey ALP [Catalytic activity/Vol] 102 U/L Normal 46-116 [facility] Comment on above: Performed By: #### P OCGLUC #### [facility] [address] [address] [address] Jd Humphrey ALT [Catalytic activity/Vol] 21 U/L Normal 14-59 [facility] Comment on above: Performed By: #### P OCGLUC #### [facility] [address] [address] [address] Jd Humphrey Anion gap [Moles/Vol] 17.6 mmol/L Normal [facility] Comment on above: Performed By: #### P OCGLUC #### [facility] [address] [address] [address] Jd Humphrey AST [Catalytic activity/Vol] 19 U/L Normal 15-37 [facility] Comment on above: Performed By: #### P OCGLUC #### [facility] [address] [address] [address] Jd Humphrey Bilirubin [Mass/Vol] 0.8 mg/dL Normal 0.2-1.0 [facility] Comment on above: Performed By: #### P OCGLUC #### [facility] [address] [address] [address] Jd Humphrey Calcium [Mass/Vol] 9.2 mg/dL Normal 8.5-10.1 [facility] Comment on above: Performed By: #### P OCGLUC #### [facility] [address] [address] [address] Jd Humphrey Chloride [Moles/Vol] 103 mmol/L Normal 98-107 [facility] Comment on above: Performed By: #### P OCGLUC #### [facility] [address] [address] [address] Jd Humphrey CO2 [Moles/Vol] 25.2 mmol/L Normal 21.0-32.0 [facility] Comment on above: Performed By: #### P OCGLUC #### [facility] [address] [address] [address] Jd Humphrey Creatinine [Mass/Vol] 0.69 mg/dL Normal 0.55-1.02 [facility] Comment on above: Performed By: #### P OCGLUC #### [facility] [address] [address] [address] Jd Humphrey EGFR-AF SINGAPOREAN >60 Normal >=60 [facility] Comment on above: Performed By: #### P OCGLUC #### [facility] [address] [address] [address] Jd Humphrey EGFR-NON AF SINGAPOREAN >60 Normal >=60 [facility] Comment on above: Performed By: #### P OCGLUC #### [facility] [address] [address] [address] Jd Humphrey Globulin (S) [Mass/Vol] 2.9 g/dL Normal [facility] Comment on above: Performed By: #### P OCGLUC #### [facility] [address] [address] [address] Jd Humphrey Glucose [Mass/Vol] 189 mg/dL Critically high 74-106 [facility] Comment on above: Performed By: #### P OCGLUC #### [facility] [address] [address] [address] Jd Humphrey Potassium [Moles/Vol] 3.8 mmol/L Normal 3.5-5.1 [facility] Comment on above: Performed By: #### P OCGLUC #### [facility] [address] [address] [address] Jd Humphrey Protein [Mass/Vol] 6.9 g/dL Normal 6.4-8.2 [facility] Comment on above: Performed By: #### P OCGLUC #### [facility] [address] [place] [address] Dr. Jd Humphrey Sodium [Moles/Vol] 142 mmol/L Normal 136-145 [facility] Comment on above: Performed By: #### P OCGLUC #### [facility] [address] [address] [address] Jd Humphrey Urea nitrogen [Mass/Vol] 16.0 mg/dL Normal 7.0-18.0 [facility] Comment on above: Performed By: #### P OCGLUC #### [facility] [address] [address] [address] Jd Humphrey Urea nitrogen/Creatinine [Mass ratio] 23.2 mg/mg Normal [facility] Comment on above: Performed By: #### P OCGLUC #### [facility] [address] [address] [address] Jd Humphrey SED RATE [facility] 2021 SED RATE 20 mm/hr Normal <=30 [facility] Comment on above: Performed By: #### B MP #### [facility] [address] [address] [address] Jd Humphrey GLUCOSE-POCTon 11-04-2018 Glucose [Mass/Vol] 126 mg/dL High 74 - 99 [facility] Work Phone: Comment on above: Performed By: #### G OLIVE #### [facility] [place] [place] [address] [place] [address] Other 11-04-2018 Name SOUMYA ABDI Pathologist: BOZENA AMEZCUAate of Procedure: 11/04/2018Date Received: 11/04/2018Date Reported 11/06/2018Submitting Physician: RENAE LAWRENCE M.D.Location: Copy To/Referring/Attending:SHAE LAWRENCE M.D. Other External # FINAL DIAGNOSISA. GASTRIC BIOPSY: --GASTRIC ANTRAL MUCOSA WITH NO SIGNIFICANT DIAGNOSTIC ALTERATION.--NO MORPHOLOGIC EVIDENCE OF HELICOBACTER PYLORI-LIKE ORGANISMS. Electronically Signed Out By RAFAELA BENSON MD/Bernice the signature on this report, the individual or group listed as making theFinal Interpretation/Diagnosis certifies that they have reviewed this case. Clinical History:Cirrhosis, gastritis, no varicesSpecimens Submitted As:A: GASTRIC BIOPSY Gross Description:Received in formalin, labeled with the patient's name and hospital number and gastric BX , are 2 fragments of light cunningham, soft tissue aggregating to 0.5 x0.3 x 0.2 cm. The specimen is submitted in toto in one cassette.LMPlmp/11/05/2018 [facility] Work Phone: Patient Name: Soumya AbdiProcedure Date: 11/04/2018 2:50 PMMRN: [id number] Number: [id number] of : [id number] Type: OutpatientSite: [facility] 1Ethnicity: Not or LatinoRace: UnknownAttending MD: Renae Lawrence , MARLENIrocedure: Upper GI endoscopyIndications: Cirrhosis rule out esophageal varicesPatient Profile: This is a 58 year old female. Outpatient EGDProviders: Renae Lawrence MD (Doctor), Jaleel Perez RN (Nurse), Tyler Mai, Diagnostic TechReferring: Juan F Savage [facility] Care Team: Ludwin Wen II, [facility] HOSPITALedicines: Monitored Anesthesia CareComplications: No immediate complications.Procedure: Pre-Anesthesia Assessment: - Prior to the procedure, a History and Physical was performed, and patient medications and allergies were reviewed. The patient's tolerance of previous anesthesia was also reviewed. The risks and benefits of the procedure and the sedation options and risks were discussed with the patient. All questions were answered, and informed consent was obtained. Prior Anticoagulants: The patient has taken no previous anticoagulant or antiplatelet agents. ASA Grade Assessment: II - A patient with mild systemic disease. After reviewing the risks and benefits, the patient was deemed in satisfactory condition to undergo the procedure. After obtaining informed consent, the endoscope was passed under direct vision. Throughout the procedure, the patient's blood pressure, pulse, and oxygen saturations were monitored continuously. The Endoscope was introduced through the mouth, and advanced to the third part of duodenum. The upper GI endoscopy was accomplished without difficulty. The patient tolerated the procedure well.Findings: The examined esophagus was normal. There is no endoscopic evidence of varices in the distal esophagus. Patchy mild inflammation characterized by erosions and erythema was found in the gastric antrum. This was biopsied with a cold forceps for histology. The pathology specimen was placed into Bottle A. The examined duodenum was normal.Impression: - Normal esophagus. - Gastritis. Biopsied. - Normal examined duodenum.Recommendation: - Patient has a contact number available for emergencies. The signs and symptoms of potential delayed complications were discussed with the patient. Return to normal activities tomorrow. Written discharge instructions were provided to the patient. - Resume previous diet. - Continue present medications. - Await pathology results. - Return to liver clinic as previously scheduled.Procedure Code(s): --- Professional --- 77386, Esophagogastroduodenoscopy , flexible, transoral; with biopsy, single or multipleDiagnosis Code(s): --- Professional --- K29.70, Gastritis, unspecified, without bleeding K74.60, Unspecified cirrhosis of liverCPT copyright 2017 [employer]. All rights reserved.The codes documented in this report are preliminary and upon dry goods clerk review may be revised to meet current compliance requirements.Renae Lawrence MD11/04/2018 3:24:18 PMThis report has been signed electronically.Number of Addenda: 0Note Initiated On: 11/04/2018 2:50 PMTotal Procedure Duration Time 0 hours 9 minutes 17 seconds Estimated Blood Loss: Estimated blood loss: none. [facility] Work Phone: [email or web address] [email or web address]} [facility] Work Phone: AFP (Tumor Marker)on 019 AFP (Tumor Marker) 3 ng/mL Normal 0-9 [facility] Comment on above: Result Comment: AFP testing is performed by chemiluminescent immunoassay using the Siemens Advia Centaur. Values obtained with different analyte methods cannot be used interchangeably. This test can be used as an adjunct in the diagnosis and monitoring of AFP-producing tumors, including non-seminomatous germ cell tumors and hepatocellular carcinomas. Ifrsy-2-Lxxakjrwlxq, Totalon 09-20-2018 Ghzvw-6-Scfhvsusbuh, Total 134 mg/dL Normal 84-218 [facility] Anti-Nuclear Ab Titer w/CHARLENE Panelon 09-20-2018 Anti-Nuclear Ab (MICHAEL) Pattern SPECKLED Normal [facility] Anti-Nuclear Ab Titer 1:40 Normal [facility] Ceruloplasminon 09-20-2018 Ceruloplasmin 26 mg/dL Normal 20-60 [facility] Extractable Nuclear Ag, Abso n 09-20-2018 Centromere (CHARLENE) Ab, IgG <0.2 Normal [facility] Comment on above: Result Comment: REF VALUES < 1.0 = NEGATIVE >=1.0 = POSITIVE Chromatin (CHARLENE) Ab, IgG <0.2 Normal [facility] Comment on above: Result Comment: REF VALUES < 1.0 = NEGATIVE >=1.0 = POSITIVE dsDNA Ab, IgG <1.0 Normal [facility] Comment on above: Result Comment: REF VALUES NEGATIVE: <= 4 IU/ML EQUIVOCAL: 5- 9 IU/ML POSITIVE: >=10 IU/ML JULIETH-1 (CHARLENE) Ab, IgG <0.2 [facility] Comment on above: Result Comment: REF VALUES < 1.0 = NEGATIVE >=1.0 = POSITIVE Ribonucleic Prot (CHARLENE) Ab, IgG <0.2 [facility] Comment on above: Result Comment: REF VALUES < 1.0 = NEGATIVE >=1.0 = POSITIVE Ribosomal P Prot (CHARLENE) Ab, IgG <0.2 [facility] Comment on above: Result Comment: REF VALUES < 1.0 = NEGATIVE >=1.0 = POSITIVE Scleroderma (Scl-70) (CHARLENE) Ab, IgG <0.2 Normal [facility] Comment on above: Result Comment: REF VALUES < 1.0 = NEGATIVE >=1.0 = POSITIVE Weinberg (CHARLENE) Ab, IgG <0.2 [facility] Comment on above: Result Comment: REF VALUES < 1.0 = NEGATIVE >=1.0 = POSITIVE Weinberg/PRESCHOOL PRINCIPAL (CHARLENE) Ab, IgG <0.2 [facility] Comment on above: Result Comment: REF VALUES < 1.0 = NEGATIVE >=1.0 = POSITIVE SSA (Ro) (CHARLENE) Ab, IgG <0.2 [facility] Comment on above: Result Comment: REF VALUES < 1.0 = NEGATIVE >=1.0 = POSITIVE SSB (La) (CHARLENE) Ab, IgG <0.2 [facility] Comment on above: Result Comment: REF VALUES < 1.0 = NEGATIVE >=1.0 = POSITIVE Ferritinon 09-20-2018 Ferritin mass conc 111 ng/mL Normal 8-150 [facility] Comment on above: Performed By: #### 1 [id number] #### [facility] [address] [place] [address] Hepatic Function Panelon Albumin mass conc 4.0 g/dL Normal 3.4-5.0 [facility] Comment on above: Performed By: #### 1 [id number] #### [facility] [address] [place] [address] Albumin/Globulin mass ratio 1.7 {ratio} Normal 0.9-2.4 [facility] Comment on above: Performed By: #### 1 [id number] #### [facility] [address] [place] [address] ALP enzyme act/vol 94 U/L Normal 45-117 [facility] Comment on above: Performed By: #### 1 [id number] #### [facility] [address] [place] [address] ALT enzyme act/vol 15 U/L Normal 7-45 [facility] Comment on above: Performed By: #### 1 [id number] #### [facility] [address] [place] [address] AST enzyme act/vol 14 U/L Normal 13-39 [facility] Comment on above: Performed By: #### 1 [id number] #### [facility] [address] [place] [address] Bilirubin mass conc 0.7 mg/dL Normal 0.0-1.2 [facility] Comment on above: Performed By: #### 1 [id number] #### [facility] [address] [place] [address] Bilirubin.direct mass conc 0.1 mg/dL Normal 0.0-0.3 [facility] Comment on above: Performed By: #### 1 [id number] #### [facility] [address] [place] [address] Protein mass conc 6.3 g/dL Low 6.4-8.2 [facility] Comment on above: Performed By: #### 1 [id number] #### [facility] [address] [place] [address] Hepatitis A Total Abon 09-20 Hepatitis A Total Ab REACTIVE Abnormal NONREACTIVE [facility] Comment on above: Result Comment: Giana ents receiving more than 5 mg/day of biotin may have interf in test results. A sample should be taken no sooner than eight after previous dose. Contact [phone] for additional infor Iron Profileon 09-20-2018 Iron Binding Capacity 332 ug/dL Normal 250-565 [facility] Comment on above: Performed By: #### 1 [id number] #### [facility] [address] [place] [address] Iron mass conc 124 ug/dL Normal 35-150 [facility] Comment on above: Performed By: #### 1 [id number] #### [facility] [address] [place] [address] Percent Saturation 37 % High 14-27 [facility] Comment on above: Performed By: #### 1 [id number] #### [facility] [address] [place] [address] Unbound Iron Binding Capacity 208 ug/dL Normal 90-340 [facility] Comment on above: Performed By: #### 1 [id number] #### [facility] [address] [place] [address] Mitochondrial M2 Ab, IgGon 0 09-20-2018 Mitochondrial M2 Ab, IgG 4.7 Units Normal 0.0-20.0 [facility] Comment on above: Result Comment: INTE RPRETIVE INFORMATION: Mitochondrial (M2) Antibody, IgG 20.0 Units or less ......... Negative 20.1 - 24.9 Units........... Equivocal 25.0 Units or greater....... Positive Performed by [facility], [address], [place] [id number] [email or web address], Brna Sales MD - Lab. Director Performed By: #### 1 [id number] #### [facility] [address] [place] [address] Prothrombin Timeon 9 INR Coag RelTime (PPP) 1.14 {INR} High 0.90-1.10 [facility] Comment on above: Performed By: #### 3 [id number] #### [facility] [address] [place] [address] Prothrombin time (PT) Coag time (PPP) 12.9 s High 9.7-12.7 [facility] Comment on above: Result Comment: CHLOÉ DAMICO NOTE NEW REFERENCE RANGE EFFECTIVE 2018 Performed By: #### 3 [id number] #### [facility] [address] [place] [address] Smooth Muscle (F-Actin) IgG w/Rfxon 09-20-2018 Smooth Muscle Ab, IgG Positive Normal NEGATIVE [facility] Smooth Muscle Ab, IgG Titer 1:20 Normal [facility] CNOVon 09-13-2017 CNOV [facility] JINSOUMYA ([id number]) 1960 FDate Time Provider Department09/13/17 12:30 PM KELLY DAVIDSON (ELECTRONIC ORGAN TECHNICIAN) [facility] During your visit today, we recorded the following information about you: Blood pressure Weight Height 100/60 101.6 kg 1.676 mMgillian Davidson CNP 09/13/2017 3:50 PM NenaSoumya Abdi is a 57 year old female who presents for a 6 Week post-op checks/p Excision of vaginal portion of retropubic mid-urethral sling,Cystourethroscopy, Anterior and posterior repairs.Post-op complications: noBleeding: noPain: yes occasional sharp pains that come and go quickly, she thinks it may befrom the stichesAbnormal vaginal discharge: noUrinary incontinence: yes, but not as bad as before. Stress- a small amountoccasionally. Urge- Sometimes she can't get to the bathroom fast enough~ incontinence is even less now than it was prior to the slingVoiding dysfunction: noUrinary frequency: noUrinary urgency: noProlapse symptoms: yes , sometimes stool is still getting stuck she has tooccasionally splint. This happens when she forgets to take MiralaxDefecatory dysfunction: noFecal incontinence: Laura Hoffmannaugh, RNOBJECTIVE:BP 100/60 Ht 5' 6ANDquot; (1.68m) Wt 224 lb (101.6kg) BMI 36.17 kg/(m2).General: Well appearing, alert, in no acute distress, well-hydrated, wellnourished.Abdomen: Normal abdominal examPelvic:Ext. Genitalia, WNLVagina: Ant wall, WNL; Post wall, WNL; Franklin, WNL -- sutures along anteriorwall healing without signs of infectionCervix: AbsentUrethra: NormalBimanual: slight tendernessRectovaginal: No tenderness, No massesPLAN:Stable post-op doing well, resume normal activities.,May resume intercourse, in 2-3 weeksOkay to restart vaginal estrogen (may apply with finger)F/U with Dr. Parks in 4 monthsEducation and counseling provided regarding lifting restrictions, exercise andbathing. Patient acknowledged understanding.Kelly Davidson CNPReferring Provider: ELENA PARKS [[id number]]Allergies As of Date: 09/13/2017 Noted Allergy ReactionLEVAQUIN (LEVOFLOXACIN) 08/04/2013 2 - RashDate Reviewed: 09/13/2017Reviewed by: Kelly (Filter Tank Operator) Lety - Fully AssessedReason for Visit: Post Op [174]Primary Visit Diagnosis:Follow-up examination following surgery [Z09]Prescriptions as of 09/13/2017 Sig: PREGABALIN 200 MG CAPSULE Take 200 mg by mouth three ti* EXENATIDE ER 2 MG SUBCUTANEOU* Inject subcutaneously once e* DOCUSATE SODIUM 100 MG CAPSULE Take 100 mg by mouth once leana* VARENICLINE 1 MG TABLET Take 1 mg by mouth twice dima* GLIMEPIRIDE 4 MG TABLET Take 4 mg by mouth twice dima* LEFLUNOMIDE 20 MG TABLET Take 20 mg by mouth once dima* ROSUVASTATIN 20 MG TABLET Take 20 mg by mouth once dima* TOLTERODINE ER 4 MG CAPSULE,E* Take 4 mg by mouth once daily. ESTRADIOL 0.01% (0.1 MG/GRAM)* Use 1 g vaginally as directed* OXYCODONE-ACETAMINOPHEN 5 MG-* four times daily as needed. ALPRAZOLAM 0.5 MG TABLET three times daily as needed. CITALOPRAM 40 MG TABLET once daily. ADVAIR DISKUS 500 MCG-50 MCG/* twice daily. TIZANIDINE 4 MG TABLET twice daily. FUROSEMIDE 20 MG TABLET once daily. * COMPOUNDED PRESCRIPTION rotuxin * PLAQUENIL 200 MG TABLET Take one(1) tablet daily. * MS CONTIN 30 MG TABLET,EXTEND* Take one(1) tablet two(2) kimberly* * FLONASE 50 MCG/ACTUATION [employer]* 2 PUFFS TWICE DAILY * POTASSIUM CHLORIDE ER 10 MEQ * Take one(1) tablet daily. * BIPAP 16CM/22CM NIGHTLY * PROVIGIL 200 MG TABLET Take one(1) tablet daily in t* * REQUIP 0.5 MG TABLET 2 mg daily * COMPOUNDED PRESCRIPTION CALCIUM 1200MG PLUS VITAMIN D* * SINEMET CR 25 MG-100 MG TABLE* 2 tabs at HSMedication notes this encounter ESTRADIOL 0.01% (0.1 MG/GRAM) VAGINAL CREAM >> Colleen Menard, RN, RN 09/13/2017 12:03 PM >> COLLEEN MENARD [facility] Sep 13, 2017 12:03 PM Not using since surgeryProblem List As Of Date 09/13/2017 Noted Resolved ABNORMAL FINDINGS-BREAST [793.8] INVALID FOR* CORONARY ATHEROSCLER UNSPEC VESSEL [I25.10] INVALID FOR* DIABETES MELLITUS TYPE II-UNCOMPL [E11.9] INVALID FOR* Rheumatoid arthritis [M06.9] More... Multiple sclerosis [G35] More... COPD (chronic obstructive pulmonary disease) [J* More... HTN (hypertension) [I10] More... Hyperlipidemia [E78.5] More... CAD (coronary artery disease) [I25.10] More... DM (diabetes mellitus) [E11.9] More... DJD (degenerative joint disease) [M19.90] More... Sleep apnea [G47.30] More... CVA (cerebral infarction) [I63.9] More... Depression [F32.9] More... RLS (restless legs syndrome) [G25.81] More... Migraine [G43.909] DDD (degenerative disc disease) [GKS9722] Lumbar radiculopathy [M54.16] Cervical radiculopathy [M54.12] Peripheral neuropathy [G62.9] Smoker [F17.200] Anxiety and depression [F41.8] INVALID FOR* Urinary incontinence [R32] INVALID FOR* Chronic pain [G89.29] MISA (stress urinary incontinence, female) [N39.*INVALID FOR* More... 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 Status:Closed by KELLY DAVIDSON CNP on 09/13/17 [facility] PROGRESSon 09-13-2017 PROGRESS HNO ID: [id number] thor: Kelly (Filter Tank Operator) LetyService: (none)Author Type: Nurse PractitionerType: Progress NotesFiled: 09/13/2017 3:50 PMNote Text:Soumya Abdi is a 57 year old female who presents for a 6 Week post-opcheck s/p Excision of vaginal portion of retropubic mid-urethral sling,Cystourethroscopy, Anterior and posterior repairs.Post-op complications: noBleeding: noPain: yes occasional sharp pains that come and go quickly, she thinks itmay be from the stichesAbnormal vaginal discharge: noUrinary incontinence: yes, but not as bad as before. Stress- a smallamount occasionally. Urge- Sometimes she can't get to the bathroom fastenough~ incontinence is even less now than it was prior to the slingVoiding dysfunction: noUrinary frequency: noUrinary urgency: noProlapse symptoms: yes , sometimes stool is still getting stuck she has tooccasionally splint. This happens when she forgets to take MiralaxDefecatory dysfunction: noFecal incontinence: Laura Menard RNOBJECTIVE:BP 100/60 Ht 5' 6 (1.68m) Wt 224 lb (101.6kg) BMI 36.17 kg/(m2).General: Well appearing, alert, in no acute distress, well-hydrated, wellnourished.Abdomen: Normal abdominal examPelvic:Ext. Genitalia, WNLVagina: Ant wall, WNL; Post wall, WNL; [place], WNL -- sutures alonganterior wall healing without signs of infectionCervix: AbsentUrethra: NormalBimanual: slight tendernessRectovaginal: No tenderness, No massesPLAN:Stable post-op doing well, resume normal activities.,May resume intercourse, in 2-3 weeksOkay to restart vaginal estrogen (may apply with finger)F/U with Dr. Parks in 4 monthsEducation and counseling provided regarding lifting restrictions, exerciseand bathing. Patient acknowledged understanding.Kelly Davidson, ELECTRONIC ORGAN TECHNICIAN [facility] Basic Metabolic Panlon 08-02 Anion gap 14 mmol/L Normal 9-18 [facility] Comment on above: Performed By: #### C GRABIEL, BMP ####[place] [address] [place] [phone] Calcium 9.4 mg/dL Normal 8.5-10.2 [facility] Comment on above: Performed By: #### C BCDIF, BMP ####[place] [address] [place] [address] [phone] Chloride 103 mmol/L Normal 97-105 [facility] Comment on above: Performed By: #### C BCDIF, BMP ####[place] [address] [place] [phone] CO2 22 mmol/L Normal 22-30 [facility] Comment on above: Performed By: #### C BCDIF, BMP ####[place] [address] [place] [address] [place] [phone] Creatinine 0.63 mg/dL Normal 0.58-0.96 [facility] Comment on above: Performed By: #### C BCDIF, BMP ####[place] [id number] [place] [address] [phone] eGFR (non-black) mL/min/{1.73_m2} Normal Cl [facility] Comment on above: Performed By: #### C BCDIF, BMP ####[facility] [place], [place] [phone] Result Comment: eGFR (Estimated GFR) Units of measure: mL/min/1.73 meters squaredeGFR is derived from the reexpressed MDRD Study equation using the following parameters: serum creatinine, age, gender and race. The creatinine assay has been calibrated to be traceable to IDMS.An eGFR <60 mL/min/1.73m2 for >3 months is consistent with chronic kidney disease. Refer to KDOQI guidelines for clinical interpretation.In patients with unstable renal function, e.g. those with acute kidney injury, the eGFR may not accurately reflect actual GFR. Glucose mass conc 219 mg/dL High 74-99 [facility] Comment on above: Result Comment: The [place] Diabetes Association (ADA) provides guidance for cutoff values for fasting glucose and random glucose. The ADA defines fasting as no caloric intake for at least 8 hours. Fasting plasma glucose results between 100 to 125 mg/dL indicate increased risk for diabetes (prediabetes).Fasting plasma glucose results greater than or equal to 126 mg/dL meet the criteria for diagnosis of diabetes. In the absence of unequivocal hyperglycemia, results should be confirmed by repeat testing. In a patient with classic symptoms of hyperglycemia or hyperglycemic crisis, random plasma glucose results greater than or equal to 200 mg/dL meet the criteria for diagnosis of diabetes.Reference: Standards of Medical Care in Diabetes 2016, [place] Diabetes Association. Diabetes Care. 2016.39(Suppl 1). Performed By: #### C GRABIEL BMP ####[place] [id number] [place], [place] [phone] Potassium molar conc 3.5 mmol/L Low 3.7-5.1 [facility] Comment on above: Performed By: #### C EMY SPAIN ####[place] [id number] [place], [place] [phone] Sodium 139 mmol/L Normal 136-144 [facility] Comment on above: Performed By: #### C EMY SPAIN ####[place] [id number] [place], [place] [phone] Urea nitrogen 13 mg/dL Normal 7-21 [facility] Comment on above: Performed By: #### C GRABIEL BMP ####[place] [address] [address] [place] [phone] CBC and Differentialon 08-02 Abs Baso 0.06 k/uL Normal <0.11 [facility] Comment on above: Performed By: #### C BCKATE, BMP ####[place] [address] [address] [place] [phone] Abs Milam 0.60 k/uL Normal <0.87 [facility] Comment on above: Performed By: #### C GRABIEL, BMP ####[place] [address] [address] [place] [phone] Abs Neut 8.21 k/uL High 1.45-7.50 [facility] Comment on above: Performed By: #### C GRABIEL, BMP ####[place] [address] [place] [address] [place] [phone] Basophils/100 WBC Auto (Bld) 0.6 % Normal [facility] Comment on above: Performed By: #### C GRABIEL, BMP ####[place] [address] [place] [address] [place] [phone] DTYPE Auto Diff Normal [facility] Comment on above: Performed By: #### C GRABIEL, BMP ####[place] [address] [place] [address] [place] [phone] Eosinophils 0.14 10*3/uL Normal <0.46 [facility] Comment on above: Performed By: #### C GRABIEL, BMP ####[place] [address] [place] [address] [place] [phone] Eosinophils/100 leukocytes 1.3 % Normal [facility] Comment on above: Performed By: #### C GRABIEL, BMP ####[place] [address] [place] [phone] Erythrocyte distribution width Auto Ratio (RBC) 12.5 % Normal 11.5-15.0 [facility] Comment on above: Performed By: #### C BCDIF, BMP ####[place] [address] [address], [place] [phone] Erythrocytes (RBC) 5.00 10*6/uL Normal 3.90-5.20 [facility] Comment on above: Performed By: #### C BCDIF, BMP ####[place] [address] [place] [address] [place] [phone] Erythrocytes (RBC) 10*6/uL Normal <0.01 [facility] Comment on above: Performed By: #### C BCDIF, BMP ####[place] [address] [address], [place] [phone] Erythrocytes (RBC) 0.0 /100 WBC Normal 0 [facility] Comment on above: Performed By: #### C BCDIF, BMP ####[place] [address] [place] [address], [place] [phone] Hematocrit (HCT) 44.7 % Normal 36.0-46.0 [facility] Comment on above: Performed By: #### C BCDIF, BMP ####[place] [address] [address], [place] [phone] Hemoglobin mass conc (Bld) 15.2 g/dL Normal 11.5-15.5 [facility] Comment on above: Performed By: #### C BCDIF, BMP ####[place] [address] [address] [place] [phone] Lymphocytes 1.48 10*3/uL Normal 1.00-4.00 [facility] Comment on above: Performed By: #### C BCDIF, BMP ####[place] [address] [address] [place] [phone] Lymphocytes/100 leukocytes 14.1 % Normal [facility] Comment on above: Performed By: #### C BCDIF, BMP ####[place] [address] [address] [place] [phone] MCH 30.4 pG Normal 26.0-34.0 [facility] Comment on above: Performed By: #### C BCDIF, BMP ####[place] [address] [address] [place] [phone] MCHC mass conc (RBC) 34.0 g/dL Normal 30.5-36.0 [facility] Comment on above: Performed By: #### C BCDIDanielito, BMP ####[address] [phone] MCV 89.4 fL Normal 80.0-100.0 [facility] Comment on above: Performed By: #### C BCDIF, BMP ####[place] [address] [place] [address] [phone] Monocytes/100 leukocytes 5.7 % Normal [facility] Comment on above: Performed By: #### C BCDIDanielito, BMP ####[address] [phone] Neutrophils/100 WBC Auto (Bld) 78.3 % Normal [facility] Comment on above: Performed By: #### C BCDIF, BMP ####[place] [address] [address] [place] [phone] Platelet mean volume (PMV) 12.5 fL Normal 9.0-12.7 [facility] Comment on above: Performed By: #### C BCDIF, BMP ####[address] [phone] Platelets 144 10*3/uL Low 150-400 [facility] Comment on above: Performed By: #### C BCDIF, BMP ####[place] [address] [place], [place] [phone] WBC (Leukocytes) 10.49 10*3/uL Normal 3.70-11.00 [facility] Comment on above: Performed By: #### C EMY SPAIN ####[facility] [place], [place] [phone] HISTORY PHYSICALon HISTORY PHYSICAL HNO ID: [id number] thor: Rosalva (Filter Tank Operator) EubankService: (none)Author Type: Nurse PractitionerType: HANDPFiled: 08/03/2017 6:43 AMNote Text:HISTORY AND PHYSICAL EXAMINATIONSERVICE DATE: 08/02/2017SERVICE TIME: 2:31 [facility]: JEANETTE Luu II FOR VISIT:Soumya Abdi is a 57 year old female who is scheduled for PAT at [facility] of Dr. Elena Parks for consultation. My final recommendationwill be communicated back to the requesting physician by way of sharedmedical record or letter.The patient has the following:ACTIVE PROBLEM LISTNonspecific Abnormal Findings On Radiological Or Other Examinations of TheBreastCoronary Atherosclerosis of Unspecified Type of Vessel, [place] Or GraftType II Or Unspecified Type Diabetes Mellitus Without Mention ofComplication, Not Stated As UncontrolledRheumatoid Arthritis (Hcc)Multiple Sclerosis (Hcc)Copd (Chronic Obstructive Pulmonary Disease) (Hcc)Htn (Hypertension)Hyperlipidem iaCad (Coronary Artery Disease)Dm (Diabetes Mellitus) ([facility])Djd (Degenerative Joint Disease)Sleep ApneaCva (Cerebral Infarction)DepressionRls (Restless Legs Syndrome)MigraineDdd (Degenerative Disc Disease)Lumbar RadiculopathyCervical RadiculopathyPeripheral NeuropathySmokerAnxiety and DepressionUrinary IncontinenceChronic PainSui (Stress Urinary Incontinence, Female)Erosion of Vaginal Mesh (Hcc)SubjectiveCHIEF COMPLAINT: Hx of urinary sling/erosin, rectoceleHPI: 57 yr old female - CC above5/10-achy pain, cramping at times and becomes sharp, hx of sling witherosin, has had the pain for awhile, worsening in the last six months, Nofever chills or nausea, no blood in urine or stool, urinary frequencyPAST MEDICAL HISTORYDiagnosis Date- Anxiety and depression- CAD (coronary artery disease) CAD: mild disease. LHC was 12/26/05: No intervention. stable- Cervical radiculopathy- Chronic pain- COPD (chronic obstructive pulmonary disease) ([facility]) COPD- CVA (cerebral infarction) stoke- mini strokes- Depression depression- DJD (degenerative joint disease) degenerative joint disease- DM (diabetes mellitus) ([facility]) borderline diabetes- : on glucophage- History of fusion of cervical spine- HTN (hypertension) Hypertension- Hyperlipidemia hyperlipidemia- Lumbar radiculopathy- Migraine- Multiple sclerosis ([facility]) Multiple sclerosis- OAB (overactive bladder)- Obese- Peripheral neuropathy- Rectocele- Rheumatoid arthritis ([facility]) rheumatoid arthritis- RLS (restless legs syndrome) restless leg syndrome- Sleep apnea sleep apnea- Smoker- Urinary incontinencePAST SURGICAL HISTORYProcedure Laterality Date- ANTERIOR INTERBODY FUSION, CERVICAL 2007 at [facility]- BX OF BREAST; INCISIONAL 1998 right breast for cyst- COLONOSCOPY 2 or 3- EGD- PAST SURGICAL HISTORY OF 01/2005 [facility] BSO- PAST SURGICAL HISTORY OF rectocele, vagicele with hyster- PAST SURGICAL HISTORY OF 2003,1997 tumor excion left elbow and right foot- PAST SURGICAL HISTORY OF 1961 TAND A- PAST SURGICAL HISTORY OF DANDC x 3 after childbirth- PAST SURGICAL HISTORY OF 2013 bladder slingFAMILY HISTORYProblem Relation Age of Onset- brain aneurysm [OTHER] Mother- Heart Father- Breast Cancer Paternal Aunt diagnosised age 45- Cancer Other no known family h/o ovarian cancer- Emphysema BrotherSOCIAL HISTORY:Social History Marital status: Spouse name: Years of education: Number of children:Social History Main Topics Smoking status: Former Smoker Packs/day: 0.30 Years: 32.00 Types: Cigarettes Quit date: 2013 Smokeless status: Never Used Alcohol use: No Drug use: NoPrior to Admission medications as of 08/02/17 1454Medication Sig Last Dose TakingPregabalin (LYRICA) 200 mg capsule Take 200 mg by mouth three times daily. Yesexenatide (BYDUREON) 2 mg ER subcutaneous injection vial Injectsubcutaneously once each week. Yesdocusate sodium (COLACE) 100 mg capsule Take 100 mg by mouth once daily.Yesvarenicline (CHANTIX) 1 mg tablet Take 1 mg by mouth twice daily. Yesglimepiride (AMARYL) 4 mg tablet Take 4 mg by mouth twice daily withmeals. Yesleflunomide (ARAVA) 20 mg tablet Take 20 mg by mouth once daily. Yesrosuvastatin (CRESTOR) 20 mg tablet Take 20 mg by mouth once daily. Yestolterodine ER (DETROL LA) 4 mg 24 hr capsule Take 4 mg by mouth oncedaily. Yesestradiol (ESTRACE) 0.01 % (0.1 mg/gram) vaginal cream Use 1 g vaginallyas directed. Use daily x 2 weeks and then 2-3 times per week as directed.May apply with finger. YesOXYCODONE-ACETAMINOPHEN 5-325 mg tablet four times daily as needed. YesALPRAZOLAM 0.5 mg tablet three times daily as needed. YesCITALOPRAM 40 mg tablet once daily. YesADVAIR DISKUS 500-50 mcg/dose dsdv twice daily. YesTIZANIDINE 4 mg tablet twice daily. YesFUROSEMIDE 20 mg tablet once daily. YesCOMPOUNDED PRESCRIPTION rotuxin Yeshydroxychloroquine sulfate(PLAQUENIL 200 MG TAB) Take one(1) tablet daily. Yesmorphine sulfate(MS CONTIN 30 MG TAB) Take one(1) tablet two(2) timesdaily. Yesfluticasone propionate(FLONASE 50 MCG/ACTUATION NASAL SPRAY) 2 PUFFS TWICEDAILY Yespotassium chloride 10 mEq ORAL TbSR Take one(1) tablet daily. YesBIPAP 16CM/22CM NIGHTLY Yesmodafinil (PROVIGIL) 200 mg ORAL Tab Take one(1) tablet daily in themorning. Yesropinirole (REQUIP) 0.5 mg ORAL Tab 2 mg daily YesCOMPOUNDED PRESCRIPTION CALCIUM 1200MG PLUS VITAMIN D Take one(1) tablettwo(2) times daily. YesSINEMET CR 25 MG-100 MG ORAL TBSR 2 tabs at HS YesNo medication comments found.ALLERGIESAllergen Reactions- Levaquin [Levofloxa* RashREVIEW OF SYSTEMS:PAIN ASSESSMENT: PainPain Score: 6/10Pain Location: Abdomen-Right Lower QuadrantDescription: SharpDuration Units: MonthsFrequency: ContinuousIntervention: MedicationGeneral: No weight loss, malaise or fevers.Neuro: Postive for hx of CVA, chronic pain, MS, RA, DJD,neck pain, backpain, neuropathy, RLS, hx of migraines - history of ministrokes, not overtCVA, no residual - Followed By Dr. Kiser, Neurology [facility]-rituxin every 6 months, last [facility] arava and plaquenil dailyRespiratory: + former smoker, chantix, COPD- with advair daily andalbuterol prn, flonase for allergies, WILLIAM with Bipap use -Denies recentURI, bronchitis or pneumoniaCardiovascular: + HLD, CAD- states she has some minor blockages butmedical management only recommended, states she says Dr Caraballo,[facility] at [facility] [place] [facility] [place] ago but will be following up with someone new -most recent testing done at [facility]. Will request, will likelynot be back before procedure tomorrow. Denies hx of IL, palpitations,DVT/PE, No CP or SOB , No hx of pacer,stentsGI: Positive for constipation - colace prn , see HPIGU: Positive for incontinence hx of bladder sling, erosin, on detrol LA-See HPIGYN: Negative for abnormal vaginal bleeding, abnormal vaginal discharge. : N/A, No LMP recorded. Patient has had a hysterectomy.Endocrine: Diabetes Mellitus on insulin, Diabetes Mellitus on oralagent-bydureon and amaryl, osteoporosis- alendronate, HRT estrace- statsshe runs less than 160 in the am, last hA1c 7.1 per self report.Hematology: No history of bleeding or clotting disorder. Pt is not takinganti-coagulation or platelet medications. No history of hematologicalsymptoms or problems., NOTE HX OF RA/MS PATIENT IS ON ARAVA AND PLAQUENILDAILY- SEEING PATIENT AT 240 PM DAY BEFORE SURGERY- NO TIME TO ADDRESSMEDS WITH PRESCRIBER. WILL PUT NOTE FOR RESOURCE NURSES TO NOTIFY THESURGEON. Patient gets Rituxin infusions q 6 months for MS, last one 04/18Oncology: No history of CA metastasis, chemo within 30 days, orradiotherapy within 90 days. Has not lost 10% of body wt in 6 months. 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 Torres for RA,For MS Dr. Rashel Yanez, hx of cervical fusion, states hardware inneckSkin: Negative for lesions, rash and itching.ObjectivePHYSICAL EXAM:VITALS:BP 113/67 Pulse 101 Temp (Src) 98.6 (Oral) Resp 18 Ht 5' 6 (1.68m) Wt 223 lb (101.2kg) SpO2 99% BMI 36.01 kg/(m2).General: Alert and oriented, ObeseSkin: Normal color, no rash, no lesions.HEENT: EOM, pupils equal, round and reactive.Cardiovascular: Normal S1 AND S2, no rubs, murmurs or gallops. No JVD. Pulseregular.Lungs: Normal breath sounds, no wheezes or crackles.Abdomen: Soft, non-tender, no rigidity. remainder of exam deferred tosurgeonExtremities: Joint tendernessNeurological: Normal cognition and motor skills. + neuropathy- hands andfeetPulses: Carotid and radial pulses normal +2.Diagnostic tests reviewed for today's visit: Lab Value Units Date High Low HB 15.2 g/dL 08/02/2017 15.5 11.5 HCT 44.7 % 08/02/2017 46.0 36.0 WBC 10.49 k/uL 08/02/2017 11.00 3.70PLT 144 k/uL 08/02/2017 400 150 Lab Value Units Date High Low ABORHD A POSI* no uni* 08/02/2017 ABSCREEN NEG no uni* 08/02/2017EKG: Sinus tachycardia , HR 101 08/02/2017ASSESSMENTPatient has the following medical conditions which may affectperi-operative courseCAD - per self report, some minor blockage but medical management only,requested outside tests 08/02/2017HyperlipidemiaForm er smokerOSA BIPAPRA-ARAVA and PLAQUENIL- SEEN AT 240 PM day before surgery - no time tocontact provider for recommendations-MSChronic painDM- bydureon and amaryl/ DM NeuropathyOAB/Hx of bladder sling with problemrectoceleObeseHx of cervical fusion with hardwareMETS:Walk indoors, such as around the house (1.75 METs)Do light work around the house, such as dusting or washing dishes (2.70METs)Take care of self; that is eating, dressing, bathing, using the toilet(2.75 METs)Walk a block or two on level ground (2.75 METs)Do moderate work around the house such as vacuuming, sweeping floors, orcarrying in groceries (3.50 METs)Do yardwork, such as raking leaves, weeding,or pushing a power mower (4.50METs)Climb a flight of stairs or walk up a hill (5.50 METs)Patient denies any chest pain or undue shortness of breath with the abovephysical activity.ASA Class: 3ANESTHESIA FINDINGS:Intubation History: No history of difficult intubationSignificant Anesthesia Considerations: NoneAirway Exam: General: Normal appearance and obese Mallampati Score is CLASS II ULBT: Class I - Lower incisors can bite the upper lip above thevermillion line Neck: Distance from hyoid to mentum during neck extension is at least 3finger breaths, Limited movement extension, turning to one or both sidesand hx of cervical fusion states with hardware, stiff in general , Shortneck, thick neck , obese, no hx of difficult airway, uses bipap Mouth: Normal tongue size and Mouth opening greater than 2 finger breaths Dentition: Upper denture and Lower dentureAirway History: No abnormal airway historySTOP BANG Score: WILLIAM does use CPAP/BiPAPPLANThis patient is optimally prepared for surgery pending LABS.Resource Nurses:This patient was seen last patient 08/02/2017 procedure 08/03/17- labs are pending, EKG sinus tachycardia HR 1011.Please notify patient patient is on arava and plaquenil for RA, rituxinfor MS (last infusion 04/18 )- she continued the meds and provider was notcontacted as to how best to manage. Patient will contact RA prescriberafter surgery to see if any adjustments are needed post surgery.CONSULTS:Patient does not require consults for optimization at this time.The Following Tests/Procedures Have Been Initiated:Orders Placed This Encounter CONFIRM BLOOD TYPE ECG COMPLETE W INTERPRETATIONPlanned Anesthetic: GeneralInstructions Given to Patient:Patient given verbal and written preop instructions and voicescomprehension and compliance.SIGNATURE: Rosalva Rodas CNP PATIENT NAME: Soumya AbidDATE: August 02, 2017 : 2:31 PM PAGER/CONTACT #: [facility] CNNURSEon 07-24-2017 [facility] Nurse Visit ([facility]) SOUMYA ABDI ([id number]) 1960 FDate Time Provider Department07/24/17 3:30 PM NURSE DIRECTOR OF PEDIATRIC REHABILITATION [facility] During your visit today, we recorded the following information about you:Colleen Menard RN, RN 07/24/2017 4:05 PM SignedDATE OF SERVICE: 07/24/2017PROBLEM: Soumya Abdi presents for pre-op teaching.PRE-OP DIAGNOSIS: Erosion of vaginal mesh, RectoceleSCHEDULED SURGERY AND DATE: 08/03/2017 REMOVE SLING TX FOR STRESS INCONTINENCEFEMALE, CYSTOSCOPY, REPAIR RECTOCELEPRIMARY SURGEON: MCKENNA Lakhani PREOP ASSESSMENT:Fevers, chills, cough, or nasal congestion: NoVaginal itching, burning, discharge, or odor: NoPain with urination, frequency, urgency, cloudy or foul smelling urine: NoIf yes to any of the above then MD notified: Not ApplicablePATIENT LEARNING ASSESSMENT:Individual patient/family learning needs evaluated and addressed: YesCognitive ability: Alert and orientedMotivation to learn: InterestedFactors affecting learning: NonePhysical limitations affecting learning: NonePatient learns best by: Multiple MethodsMethod of instruction: Written instruction - handoutsVerbal instructionInstructions provided to: Patient via telephone. Written material providedprior to education appointment.Family support: Unable to assess - Family not presentPRE- AND POST-OPERATIVE TEACHINGPre-operative teaching and supplemental material provided and reviewed withpatient: Your Surgical Guide BookMapWritten pre-op and post-op instructionsAntibacterial soap: Instructed patient to use antibacterial soap.Pre-operative instructions provided and reviewed with patient/family: Noeating, drinking, or smoking after midnight prior to surgery unless otherwisedirectedNo alcohol the day before surgeryMedications as prescribed by anesthesia, internal medicine, surgeon, or NPStop NSAIDs, Aspirin (ASA), vitamins, herbal supplements, herbal teas, and dietpills 7-10 days prior to surgeryOK to take tylenol prn pain unless otherwise directed by physicianNiagara University surgery coordinators if any other questions about surgerydate or pre-op appointmentsBowel prep instructions: None neededNo solid foods after midnight including gum, mints, and smoking. May drink upto 12oz of clear liquids up to 2 hours prior to arrival time.Day of surgery instructions provided and reviewed with patient/family: Arrivaltime (call surgical coordinators on the office day prior to surgery forverification)No jewelry, body piercing, makeup, contacts, lotions, nail macedonian on fingers,or anything in hair on arrival to surgeryWear low healed shoes and loose fitting clothingLeave all valuables at home or with a family memberDirections to [facility] [facility] CenterParking/parking validation on the day prior to surgeryAdmission/check inHolding areaPlacement of IVSurgical positioningFamily waiting areaSurgical recovery roomPost-operative instructions provided and reviewed with patient/family: SEEPATIENT INSTRUCTION SECTION FOR DETAILS.ACTIVITY - No heavy lifting (ANDgt;5-10 lbs), no pushing/pulling, OK to climbstairsDRIVING - No driving for 3 weeks unless prior approval from [employer] to ride in acar.DIET - Advance diet as tolerated and as ordered by , drink 8 glasses of watera day, eat a diet high in protein and fiber unless otherwise directed by MD.CATHETER - Will be inserted during surgery, you may go home with a catheter for7-10 days and will have to come back to the office for a voiding trial, UTIsymptoms reviewed and patient instructed to notify MD of any of these symptoms.INCISION CARE - Keep incision clean and dry, bryan to be removed 7-10 daysafter surgery, steristrips do not need to be removed by MDBATHING - OK to shower after surgery unless otherwise directed by MD, no tubbaths.PAIN MEDICATION - IV pain medication after surgery, IV CLERICAL STOCK INSPECTOR if ordered by MD,discharged home with a prescription for PO pain medication, pain managementafter surgery, side effects of pain medication (including constipation,dizziness, drowsiness, and medication interactions).VAGINAL CARE - Pelvic rest x6 weeks unless otherwise directed by MD.DVT PROPHYLAXIS - Early ambulation, SCDs, injectable anticoagulants (heparin,lovenox, etc)RESPIRATORY - Incentive spirometer, coughing/deep breathing exercises,ambulation.RETUR N TO WORK - As directed by physician, please send any FMLA papers tophysician's area secretary.SYMPTOMS TO NOTIFY MD - Fever, chills, nausea, vomiting, increased or severepain, heavy vaginal bleeding, foul smelling vaginal drainage, pain or swellingin extremities.URGENT SYMPTOMS - Call 911 or go to ER if any shortness of breath, difficultybreathing, or chest pain.HOW TO CONTACT PHYSICIAN - Physician's office phone number given to patient, ifafter hours patient instructed to call powder operator and ask for advisory application developer food selector oncresident.BLANCHE program offered to patient: YesAdditional teaching as indicated by patient/family learning needs.PATIENT LEARNING EVALUATION ANDamp; FOLLOW UP PLAN:Patient and/or family express understanding of upcoming surgery, pre-operativepreparation, the operative process, and post-operative instructions.Follow up plan: Complete - No need for follow-upPatient has a post-op appointment scheduled: YesReferral (recommentation): NoneEducator: Colleen Menard, JOSÉ MIGUELAscension Calumet HospitalColleen Menard RN, RN 07/24/2017 3:55 PM SignedGYNECOLOGY PHYSICIAN CONTACT INFORMATIONSurgery Scheduling Office General Gynecology Gynecologic OncologyDr. Susan Santos Dr. Carolynn Spicer DrMichelle Zuniga. [place] Dr. Gaetano Malave DrMichelle Petty Dr. Delio Birmingham DrMichelle Cortez Dr. Valerie Cortez Dr. Dalia Kessler Gynecology Nurse Practitioner Lali Greenwood, [facility] Die Set Up Worker Oncology Nurse Practitioners:Sierra De Jesus, [facility] Alice Weinstein, [facility] Missy Chowdhury, [facility] Paradise Mirza, [facility]OPMENTAL CENTERUrogynecology Jenn Glover, [facility] CENTERDr. Vani Mcintyre Hortencia Banda, [facility] CENTERDr. Mechelle Hernandez DrMichelle Shukla DrMichelle Mendez FertilityDr. Tyler Tanner Dr. Judy Ojeda Dr. Paolo Stephenson Urogynecology NursePractitioner: Dr. Jenifer Cunningham Kelly Davidson, [facility]ENTERCarina Love, [facility] Fertility NursePractitioners: Lali Au, ELECTRONIC ORGAN TECHNICIAN Karyna Gutierrez [facility] CENTERKalee 4:30 pm or on holidays or weekends, call: or . Ask the powder operator to page the ?food selector advisory application developer.' PRE-OPE RATIVE CHECKLIST: PATIENT INSTRUCTIONS PRIOR TO SURGERYOur guidelines have changed, so please read these instructions carefully. Yoursurgery may be cancelled if you do not follow these instructions. MY ARRIVAL TIME IS: PATIE NTS WITH DELAYED STOMACH EMPTYING: I have been instructed not to have anything to eat or drink after midnightprior to my surgery (this includes no gum, mints, smoking). No alcohol the daybefore or day of surgery.PATIENTS WITHOUT DELAYED STOMACH EMPTYING: I have been instructed not to have any solid food to eat after midnight priorto my surgery (this includes no gum, mints, smoking). I am allowed to drink small amounts (up to 12 oz) of clear liquids up until 2hours prior to my ARRIVAL TIME. Clear liquids include water, fruit juices without pulp, carbonated beverages(i.e. tracy ivon), electrolyte beverages (i.e. Gatorade), clear tea and blackcoffee, clear broth, popsicles and jello. (No milk). No alcohol the daybefore or day of surgery. I will bring this binder to all pre and post-operative appointments AND day ofsurgery.MEDICATION STOPPAGE: I will not wear jewelry, body piercing(s), makeup, nail macedonian, hairpins, orcontacts on the day of surgery. I am to leave valuables and money at home orwith family members. Unless my surgeon tells me differently, I will STOP THESEMEDICATIONS 7 DAYS PRIOR TO SURGERY: (Motrin/Ibuprofen/Naproxen /Aleve/Advil),Aspirin, vitamin E, herbal medications, diet pills, and jziy-gsc-pbqypiifiasmrxgfy s. Tylenol (acetaminophen) is okay. If I am prescribed inhalers for breathing, I will use them and [facility]. Medication(s) to be taken on the morning of surgery with a fewsips of water: If I am taking any of the following blood thinning medications ? Aspirin,clopidogrel (Plavix), ticagrelor (Brilinta), prasugrel (Efficient), ticlodipine(Ticlid), warfarin (Coumadin), dibigatran (Pradaxa) or rivaroxaban (Xarelto) -I will discuss whether or not I should stop them before surgery with mySurgeon. Discuss medication changes with your channel turner or primary carephysician as well.If I stopped taking my blood-thinning medication, I will ask the surgeon whento resume taking it. If I am an outpatient, a responsible person will drive me home and it wassuggested that someone stay with me for 24 hours.I understand that a cashiers bussers food runners or cabdriver is NOT a responsible caregiver. Patients with diabetes, I will not take my morning diabetes medication (pills)on the morning of surgery. If I am on insulin, someone has gone over thoseinstructions with me for the morning of surgery. I understand if my surgery isdelayed, I will notify the check in desk that I have diabetes. See the?Diabetic Guidelines Before Surgery? in the patient education section. If I have Obstructive Sleep Apnea and am on a CPAP/BiPAP machine, I will bringmy mask, tubing and machine with me on the day of surgery. To find out myarrival time for surgery, I must call my nursing surgical services director [id number] the day before surgery. Pain management education material found in Your Surgical Guide was reviewedwith me. Preoperative instructions given by:DIRECTOR OF PEDIATRIC REHABILITATION PREOP INSTRUCTIONSPRE-OPERATIVE CHECKLIST? See Pre-Operative Checklist (either attached or in Your Surgical Guide Book)THE DAY OF SURGERY/CHECK IN? Report to DESK P20 located in the surgery center (unless otherwise instructedto go to -1). A map is located in Your Surgical Guide Book.INFECTION PREVENTION? Please notify your doctor if you have any signs of an infection (i.e. fever,severe cough, nasal congestion, pain with urination, abnormal vaginaldischarge, etc).? Your surgeon will let you know if a bowel prep is needed before your surgery. If so, please see the attached instructions.? Shower the night before surgery AND the morning of surgery with Hibiclens(provided by your surgeon). If you are allergic to Hibiclens or unable toobtain the Hibiclens, please wash with antibacterial soap. Wash your body fromthe neck down, focusing on your abdomen, belly button and external genitalia.Do not forget to scrub any skin folds and creases.? No lotions, oils, creams, or powders after your shower. Underarm deodorantis okay.? No shaving (abdominal or pubic hair) or douching the day before surgery.? You may be asked to apply an antiseptic solution called ChlorhexidineGluconate (CHG) which will be provided to you on arrival to the preop area.? Hand washing is extremely important in preventing infection (for both you asthe patient and for the caregivers).HOSPITALIZATIO N? Before you leave the hospital, you typically need to be able to eat/drink,urinate, and have your pain controlled with oral medication. Your surgeon orother members of your surgeon?s team will discuss any other specific medicalissues related to your discharge with you.? See Your Surgical Guide Book for information on pain management.? Your surgeon may order intermittent compression sleeves. These are?massaging leg pumps? to help prevent blood clots after surgery. See YourSurgical Guide Book for more information.? It is also very important that you walk as soon as possible and as frequentlyas possible after surgery. This will help decrease your risk of blood clots,exercise your lungs and speed up your recovery after surgery.? If you are admitted to the hospital overnight, you will be given an incentivespirometer, which is a breathing machine that will help make sure that you aretaking deep breaths and expanding your lungs while in the hospital. See YourSurgical Guide Book for more information.[facility] TEAM? At the [facility], we have a multidisciplinary team of caregivers thatincludes fellows, residents, nurse practitioners (boat canvas maker and installer), physician assistants(PAs), clinical nurse specialists (CNSs), nurses, medical assistants (MAs),patient care nursing assistants (PCNAs), social workers, mattress spring encaser and manyothers. We all have different roles and responsibilities but we are all hereto help you.UROGYN POSTOP INSTRUCTIONSACTIVITY? No heavy lifting/pushing/pulling for 4-6 weeks. Do not lift anything morethan about 5-10 lbs (such as laundry, groceries, children, pets), vacuum, pushheavy doors or grocery carts, etc.? You may climb stairs as tolerated.? Do not put anything in the vagina for 6 weeks after surgery unless otherwiseinstructed by your doctor (including tampons, douching, sexual intercourse,etc).? No driving for about 2-4 weeks after surgery, while you are taking narcoticpain medication, or until you feel that you are ready.? Avoid sitting or lying in bed for more than 2 hours at a time while you areawake to reduce your risk of blood clots.? Return to work when directed by your surgeon. Please contact your surgeon?soffice if any FMLA or other paperwork is needed.WOUND CARE? If you have bryan (abdominal incision), they need to be removed about 10-14days after surgery. If you have sutures, they do not need to be removed. Keepany incision clean, dry, and open to the air.? Shower daily after surgery. No tub baths until wound is completely healed.? Shower daily after surgery. Clean your incision daily with the Hibiclenssoap. If this soap is irritating your skin, use Hibiclens every other day,alternating with your normal soap. Pat your incision dry with a clean towel.No tub baths until wound is completely healed.? Wash your hands frequently, especially before touching your incision,changing any dressings, after using the restroom, and before eating.PAIN MANAGEMENT? Take your oral pain medication as needed.? Some pain medications can cause constipation. You should take a stoolsoftener (i.e. colace) if you are taking these medications. You can also takeMiralax and/or milk of magnesia as needed.GUILLORY CARE? You may go home with a guillory catheter in your bladder. You will need tofollow up for a nurse visit in 7-10 days for removal.? It is important to empty your catheter bag before it gets too full.? Keep the catheter tubing free of kinks and guillory bag below the level of yourbladder.? Keep your pubic area and catheter tubing clean.WHAT TO EXPECT AT HOME? Recovery from surgery is generally 2-4 weeks, but sometimes longer for morestrenuous activity. It is normal to be very tired during this time.? It is normal to have some drainage or a small amount of vaginal bleedingafter surgery which may last up to 6 weeks.? If you had a laparoscopic surgery, you may experience gas pain, abdominalswelling, or shoulder pain for 24-72 hours after surgery. A warm shower,heating pad, and/or walking may help.WHEN TO CALL YOUR DOCTOR:? If you cannot urinate for 3-5 hours or are only able to urinate small amounts.? Fever (ANDgt;100.4?F or 38.0?C) or chills.? Incision problems such as redness, warmth, swelling, or foul smellingdrainage.? Severe nausea or persistent vomiting.? Bright red vaginal bleeding (soaking ANDgt;1 pad/hour) or foul smelling vaginaldrainage.? Severe pain not relieved with pain medication.? Pain and swelling in your legs, especially if it is only on one side and notthe other.? Pain with urination, cloudy urine, or foul smelling urine.? Or if you have any other problems or questions.? CALL 911 or go to the ED if any shortness of breath, difficulty breathing, orchest pain.Referring Provider: ELENA PARKS [[id number]]Allergies As of Date: 07/24/2017 Noted Allergy ReactionLEVAQUIN (LEVOFLOXACIN) 08/04/2013 2 - RashDate Reviewed: 07/24/2017Reviewed by: Colleen (Rn) JOSÉ MIGUEL Menard - Fully AssessedReason for Visit: Pre-Op Teaching [134]Primary Visit Diagnosis:Educational circumstances [Z55.9]Prescriptions as of 07/24/2017 Sig: AMOXICILLIN ORAL Take by mouth. PREGABALIN 200 MG CAPSULE Take 200 mg by mouth three ti* EXENATIDE ER 2 MG SUBCUTANEOU* Inject subcutaneously once e* DOCUSATE SODIUM 100 MG CAPSULE Take 100 mg by mouth once leana* VARENICLINE 1 MG TABLET Take 1 mg by mouth twice dima* GLIMEPIRIDE 4 MG TABLET Take 4 mg by mouth twice dima* LEFLUNOMIDE 20 MG TABLET Take 20 mg by mouth once dima* ROSUVASTATIN 20 MG TABLET Take 20 mg by mouth once dima* TOLTERODINE ER 4 MG CAPSULE,E* Take 4 mg by mouth once daily. ESTRADIOL 0.01% (0.1 MG/GRAM)* Use 1 g vaginally as directed* OXYCODONE-ACETAMINOPHEN 5 MG-* four times daily as needed. ALENDRONATE 70 MG TABLET once each week. ALPRAZOLAM 0.5 MG TABLET three times daily as needed. CITALOPRAM 40 MG TABLET once daily. ADVAIR DISKUS 500 MCG-50 MCG/* twice daily. TIZANIDINE 4 MG TABLET twice daily. GABAPENTIN 800 MG TABLET three times daily. FUROSEMIDE 20 MG TABLET once daily. * COMPOUNDED PRESCRIPTION rotuxin * PLAQUENIL 200 MG TABLET Take one(1) tablet daily. * MS CONTIN 30 MG TABLET,EXTEND* Take one(1) tablet two(2) kimberly* * FLONASE 50 MCG/ACTUATION [employer]* 2 PUFFS TWICE DAILY * POTASSIUM CHLORIDE ER 10 MEQ * Take one(1) tablet daily. * ALBUTEROL 90 MCG/ACTUATION AE* PRN * BIPAP 16CM/22CM NIGHTLY * PROVIGIL 200 MG TABLET Take one(1) tablet daily in t* * REQUIP 0.5 MG TABLET 2 mg daily * COMPOUNDED PRESCRIPTION CALCIUM 1200MG PLUS VITAMIN D* * SINEMET CR 25 MG-100 MG TABLE* 2 tabs at [facility] List As Of Date 07/24/2017 Noted Resolved ABNORMAL FINDINGS-BREAST [793.8] INVALID FOR* CORONARY ATHEROSCLER UNSPEC VESSEL [I25.10] INVALID FOR* DIABETES MELLITUS TYPE II-UNCOMPL [E11.9] INVALID FOR* Rheumatoid arthritis [M06.9] More... Multiple sclerosis [G35] More... COPD (chronic obstructive pulmonary disease) [J* More... HTN (hypertension) [I10] More... Hyperlipidemia [E78.5] More... CAD (coronary artery disease) [I25.10] More... DM (diabetes mellitus) [E11.9] More... DJD (degenerative joint disease) [M19.90] More... Sleep apnea [G47.30] More... CVA (cerebral infarction) [I63.9] More... Depression [F32.9] More... RLS (restless legs syndrome) [G25.81] More... Migraine [G43.909] DDD (degenerative disc disease) [[id number]] Lumbar radiculopathy [M54.16] Cervical radiculopathy [M54.12] Peripheral neuropathy [G62.9] Smoker [F17.200] Anxiety and depression [F41.8] INVALID FOR* Urinary incontinence [R32] INVALID FOR* Chronic pain [G89.29] MISA (stress urinary incontinence, female) [N39.*INVALID FOR* More... 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 Other instructions from your clinician: GYNECOLOGY PHYSICIAN CONTACT INFORMATION Surgery Scheduling Office General Gynecology Gynecologic Oncology Dr. Susan Santos Dr. Carolynn Spicer Dr. Tyler Marley Dr. Gaetano Malave Dr. Elise Petty Dr. Delio Birmingham Dr. Heidy Cortez Dr. Valerie Cortez Dr. Dalia Kessler Gynecology Nurse Practitioner Lali Greenwood, KEISHA Die Set Up Worker Oncology Nurse Practitioners: Sierra De Jesus, ELECTRONIC ORGAN TECHNICIAN Alice Weinstein, ELECTRONIC ORGAN TECHNICIAN Missy Chowdhury, KEISHA Mirza, ELECTRONIC ORGAN TECHNICIAN Urogynecology Jenn Glover, [facility] Dr. Vani Mcintyre Hortencia Banda, [facility] Dr. Mechelle Hernandez Dr. Edna Shukla Dr. Carrie Mendez Fertility Dr. Tyler Tanner Dr. Judy Ojeda Dr. Paolo Stephenson Urogynecology Nurse Practitioner: Dr. Jenifer Cunningham Kelly Davidson, ELECTRONIC ORGAN TECHNICIAN Carina Love, [facility] Fertility Nurse Practitioners: Lali Au, KEISHA Gutierrez, ELECTRONIC ORGAN TECHNICIAN After 4:30 pm or on holidays or weekends, call: or . Ask the powder operator to page the ?food selector advisory application developer.' PRE-OPERATIVE CHECKLIST: PATIENT INSTRUCTIONS PRIOR TO SURGERY Our guidelines have changed, so please read these instructions carefully. Your surgery may be cancelled if you do not follow these instructions. MY ARRIVAL TIME IS: PATIENTS WITH DELAYED STOMACH EMPTYING: I have been instructed not to have anything to eat or drink after midnight prior to my surgery (this includes no gum, mints, smoking). No alcohol the day before or day of surgery. PATIENTS WITHOUT DELAYED STOMACH EMPTYING: I have been instructed not to have any solid food to eat after midnight prior to my surgery (this includes no gum, mints, smoking). I am allowed to drink small amounts (up to 12 oz) of clear liquids up until 2 hours prior to my ARRIVAL TIME. Clear liquids include water, fruit juices without pulp, carbonated beverages (i.e. tracy ivon), electrolyte beverages (i.e. Gatorade), clear tea and black coffee, clear broth, popsicles and jello. (No milk). No alcohol the day before or day of surgery. I will bring this binder to all pre and post-operative appointments AND day of surgery. MEDICATION STOPPAGE: I will not wear jewelry, body piercing(s), makeup, nail macedonian, hairpins, or contacts on the day of surgery. I am to leave valuables and money at home or with family members. Unless my surgeon tells me differently, I will STOP THESE MEDICATIONS 7 DAYS PRIOR TO SURGERY: (Motrin/Ibuprofen/Naproxen /Aleve/Advil), Aspirin, vitamin E, herbal medications, diet pills, and ovsb-ktq-guixuca medications. Tylenol (acetaminophen) is okay. If I am prescribed inhalers for breathing, I will use them and bring them to the hospital. Medication(s) to be taken on the morning of surgery with a few sips of water: If I am taking any of the following blood thinning medications ? Aspirin, clopidogrel (Plavix), ticagrelor (Brilinta), prasugrel (Efficient), ticlodipine (Ticlid), warfarin (Coumadin), dibigatran (Pradaxa) or rivaroxaban (Xarelto) - I will discuss whether or not I should stop them before surgery with my Surgeon. Discuss medication changes with your channel turner or primary care physician as well. If I stopped taking my blood-thinning medication, I will ask the surgeon when to resume taking it. If I am an outpatient, a responsible person will drive me home and it was suggested that someone stay with me for 24 hours. I understand that a cashiers bussers food runners or cabdriver is NOT a responsible caregiver. Patients with diabetes, I will not take my morning diabetes medication (pills) on the morning of surgery. If I am on insulin, someone has gone over those instructions with me for the morning of surgery. I understand if my surgery is delayed, I will notify the check in desk that I have diabetes. See the ?Diabetic Guidelines Before Surgery? in the patient education section. If I have Obstructive Sleep Apnea and am on a CPAP/BiPAP machine, I will bring my mask, tubing and machine with me on the day of surgery. To find out my arrival time for surgery, I must call my nursing surgical services director after 2pm the day before surgery. Pain management education material found in Your Surgical Guide was reviewed with me. Preoperative instructions given by: DIRECTOR OF PEDIATRIC REHABILITATION PREOP INSTRUCTIONS PRE-OPERATIVE CHECKLIST ? See Pre-Operative Checklist (either attached or in Your Surgical Guide Book) THE DAY OF SURGERY/CHECK IN ? Report to DESK P20 located in the surgery center (unless otherwise instructed to go to J1-1). A map is located in Your Surgical Guide Book. INFECTION PREVENTION ? Please notify your doctor if you have any signs of an infection (i.e. fever, severe cough, nasal congestion, pain with urination, abnormal vaginal discharge, etc). ? Your surgeon will let you know if a bowel prep is needed before your surgery. If so, please see the attached instructions. ? Shower the night before surgery AND the morning of surgery with Hibiclens (provided by your surgeon). If you are allergic to Hibiclens or unable to obtain the Hibiclens, please wash with antibacterial soap. Wash your body from the neck down, focusing on your abdomen, belly button and external genitalia. Do not forget to scrub any skin folds and creases. ? No lotions, oils, creams, or powders after your shower. Underarm deodorant is okay. ? No shaving (abdominal or pubic hair) or douching the day before surgery. ? You may be asked to apply an antiseptic solution called Chlorhexidine Gluconate (CHG) which will be provided to you on arrival to the preop area. ? Hand washing is extremely important in preventing infection (for both you as the patient and for the caregivers). HOSPITALIZATION ? Before you leave the hospital, you typically need to be able to eat/drink, urinate, and have your pain controlled with oral medication. Your surgeon or other members of your surgeon?s team will discuss any other specific medical issues related to your discharge with you. ? See Your Surgical Guide Book for information on pain management. ? Your surgeon may order intermittent compression sleeves. These are ?massaging leg pumps? to help prevent blood clots after surgery. See Your Surgical Guide Book for more information. ? It is also very important that you walk as soon as possible and as frequently as possible after surgery. This will help decrease your risk of blood clots, exercise your lungs and speed up your recovery after surgery. ? If you are admitted to the hospital overnight, you will be given an incentive spirometer, which is a breathing machine that will help make sure that you are taking deep breaths and expanding your lungs while in the hospital. See Your Surgical Guide Book for more information. [facility] TEAM ? At the [facility], we have a multidisciplinary team of caregivers that includes fellows, residents, nurse practitioners (boat canvas maker and installer), physician assistants (PAs), clinical nurse specialists (CNSs), nurses, medical assistants (MAs), patient care nursing assistants (PCNAs), social workers, mattress spring encaser and many others. We all have different roles and responsibilities but we are all here to help you. UROGYN POSTOP INSTRUCTIONS ACTIVITY ? No heavy lifting/pushing/pulling for 4-6 weeks. Do not lift anything more than about 5-10 lbs (such as laundry, groceries, children, pets), vacuum, push heavy doors or grocery carts, etc. ? You may climb stairs as tolerated. ? Do not put anything in the vagina for 6 weeks after surgery unless otherwise instructed by your doctor (including tampons, douching, sexual intercourse, etc). ? No driving for about 2-4 weeks after surgery, while you are taking narcotic pain medication, or until you feel that you are ready. ? Avoid sitting or lying in bed for more than 2 hours at a time while you are awake to reduce your risk of blood clots. ? Return to work when directed by your surgeon. Please contact your surgeon?s office if any FMLA or other paperwork is needed. WOUND CARE ? If you have bryan (abdominal incision), they need to be removed about 10-14 days after surgery. If you have sutures, they do not need to be removed. Keep any incision clean, dry, and open to the air. ? Shower daily after surgery. No tub baths until wound is completely healed. ? Shower daily after surgery. Clean your incision daily with the Hibiclens soap. If this soap is irritating your skin, use Hibiclens every other day, alternating with your normal soap. Pat your incision dry with a clean towel. No tub baths until wound is completely healed. ? Wash your hands frequently, especially before touching your incision, changing any dressings, after using the restroom, and before eating. PAIN MANAGEMENT ? Take your oral pain medication as needed. ? Some pain medications can cause constipation. You should take a stool softener (i.e. colace) if you are taking these medications. You can also take Miralax and/or milk of magnesia as needed. GUILLORY CARE ? You may go home with a guillory catheter in your bladder. You will need to follow up for a nurse visit in 7-10 days for removal. ? It is important to empty your catheter bag before it gets too full. ? Keep the catheter tubing free of kinks and guillory bag below the level of your bladder. ? Keep your pubic area and catheter tubing clean. WHAT TO EXPECT AT HOME ? Recovery from surgery is generally 2-4 weeks, but sometimes longer for more strenuous activity. It is normal to be very tired during this time. ? It is normal to have some drainage or a small amount of vaginal bleeding after surgery which may last up to 6 weeks. ? If you had a laparoscopic surgery, you may experience gas pain, abdominal swelling, or shoulder pain for 24-72 hours after surgery. A warm shower, heating pad, and/or walking may help. WHEN TO CALL YOUR DOCTOR: ? If you cannot urinate for 3-5 hours or are only able to urinate small amounts. ? Fever (>100.4?F or 38.0?C) or chills. ? Incision problems such as redness, warmth, swelling, or foul smelling drainage. ? Severe nausea or persistent vomiting. ? Bright red vaginal bleeding (soaking >1 pad/hour) or foul smelling vaginal drainage. ? Severe pain not relieved with pain medication. ? Pain and swelling in your legs, especially if it is only on one side and not the other. ? Pain with urination, cloudy urine, or foul smelling urine. ? Or if you have any other problems or questions. ? CALL 911 or go to the ED if any shortness of breath, difficulty breathing, or chest pain. Status:Closed by COLLEEN MENARD on 07/24/17 [facility] PROGRESSon 07-24-2017 PROGRESS HNO ID: [id number] thor: Colleen (Rn) MARYLIN Menardervice: (none)Author Type: Registered NurseType: Progress NotesFiled: 07/24/2017 4:05 PMNote Text:DATE OF SERVICE: 07/24/2017PROBLEM: Soumya Abdi presents for pre-op teaching.PRE-OP DIAGNOSIS: Erosion of vaginal mesh, RectoceleSCHEDULED SURGERY AND DATE: 08/03/2017 REMOVE SLING TX FOR STRESSINCONTINENCE FEMALE, CYSTOSCOPY, REPAIR RECTOCELEPRIMARY SURGEON: MCKENNA Lakhani PREOP ASSESSMENT:Fevers, chills, cough, or nasal congestion: NoVaginal itching, burning, discharge, or odor: NoPain with urination, frequency, urgency, cloudy or foul smelling urine:NoIf yes to any of the above then MD notified: Not ApplicablePATIENT LEARNING ASSESSMENT:Individual patient/family learning needs evaluated and addressed: YesCognitive ability: Alert and orientedMotivation to learn: InterestedFactors affecting learning: NonePhysical limitations affecting learning: NonePatient learns best by: Multiple MethodsMethod of instruction: Written instruction - handoutsVerbal instructionInstructions provided to: Patient via telephone. Written materialprovided prior to education appointment.Family support: Unable to assess - Family not presentPRE- AND POST-OPERATIVE TEACHINGPre-operative teaching and supplemental material provided and reviewedwith patient: Your Surgical Guide BookMapWritten pre-op and post-op instructionsAntibacterial soap: Instructed patient to use antibacterial soap.Pre-operative instructions provided and reviewed with patient/family: Noeating, drinking, or smoking after midnight prior to surgery unlessotherwise directedNo alcohol the day before surgeryMedications as prescribed by anesthesia, internal medicine, surgeon, or NPStop NSAIDs, Aspirin (ASA), vitamins, herbal supplements, herbal teas, anddiet pills 7-10 days prior to surgeryOK to take tylenol prn pain unless otherwise directed by physicianCall surgery coordinators if any other questions aboutsurgery date or pre-op appointmentsBowel prep instructions: None neededNo solid foods after midnight including gum, mints, and smoking. May drinkup to 12oz of clear liquids up to 2 hours prior to arrival time.Day of surgery instructions provided and reviewed with patient/family:Arrival time (call surgical coordinators on the office day prior tosurgery for verification)No jewelry, body piercing, makeup, contacts, lotions, nail macedonian onfingers, or anything in hair on arrival to surgeryWear low healed shoes and loose fitting clothingLeave all valuables at home or with a family memberDirections to [facility] CenterParking/parking validation on the day prior to surgeryAdmission/check inHolding areaPlacement of IVSurgical positioningFamily waiting areaSurgical recovery roomPost-operative instructions provided and reviewed with patient/family: SEEPATIENT INSTRUCTION SECTION FOR DETAILS.ACTIVITY - No heavy lifting (>5-10 lbs), no pushing/pulling, OK to climbstairsDRIVING - No driving for 3 weeks unless prior approval from MD, OK to ridein a car.DIET - Advance diet as tolerated and as ordered by MD, drink 8 glasses ofwater a day, eat a diet high in protein and fiber unless otherwisedirected by MD.CATHETER - Will be inserted during surgery, you may go home with acatheter for 7-10 days and will have to come back to the office for avoiding trial, UTI symptoms reviewed and patient instructed to notify MDof any of these symptoms.INCISION CARE - Keep incision clean and dry, bryan to be removed 7-10days after surgery, steristrips do not need to be removed by MDBATHING - OK to shower after surgery unless otherwise directed by MD, notub baths.PAIN MEDICATION - IV pain medication after surgery, IV CLERICAL STOCK INSPECTOR if ordered byMD, discharged home with a prescription for PO pain medication, painmanagement after surgery, side effects of pain medication (includingconstipation, dizziness, drowsiness, and medication interactions).VAGINAL CARE - Pelvic rest x6 weeks unless otherwise directed by MD.DVT PROPHYLAXIS - Early ambulation, SCDs, injectable anticoagulants(heparin, lovenox, etc)RESPIRATORY - Incentive spirometer, coughing/deep breathing exercises,ambulation.RETUR N TO WORK - As directed by physician, please send any FMLA papers [facility] secretary.SYMPTOMS TO NOTIFY MD - Fever, chills, nausea, vomiting, increased orsevere pain, heavy vaginal bleeding, foul smelling vaginal drainage, painor swelling in extremities.URGENT SYMPTOMS - Call 911 or go to ER if any shortness of breath,difficulty breathing, or chest pain.HOW TO CONTACT PHYSICIAN - Physician's office phone number given topatient, if after hours patient instructed to call powder operator and ask for oncall food selector onc resident.BLANCHE program offered to patient: YesAdditional teaching as indicated by patient/family learning needs.PATIENT LEARNING EVALUATION AND FOLLOW UP PLAN:Patient and/or family express understanding of upcoming surgery,pre-operative preparation, the operative process, and post-operativeinstructions .Follow up plan: Complete - No need for follow-upPatient has a post-op appointment scheduled: YesReferral (recommentation): NoneEducator: Colleen Menard [facility] CNOVoc 06-11-2017 CNOV Office Visit (GYNC) SOUMYA ABDI ([id number]) 1960 [facility] Rxopjhadxd89/11/17 2:30 PM ELENA PARKS [facility] During your visit today, we recorded the following information about you: Blood pressure Weight Height 104/70 98.4 kg 1.676 Earline Parks MD 06/11/2017 5:06 PM Scxldi9506/11/2017Soumya Abdi presents today for a diagnostic cystoscopy. Indication: Urinaryincontinence in setting of previous sling with exposure.UNIVERSAL PROTOCOL / SAFETY CHECKLISTProcedure to be performed: Office CystoscopySign in Communication: CompletedTime Out: Team Confirms the Correct Patient, Correct Procedure, Correct Siteand Site Marking, Correct Position (if applicable), Prep and Dry Time (ifapplicable). Time: 305Affirmation of Time Out: YESSign Out Discussion: Landon Gross RNPROCEDURE:The patient was taken to the procedure room, placed in lithotomy position andprepped in the usual fashion. Anesthesia: Intraurethral Lidocaine jelly 5 mL.Video-assisted cystourethroscopy was performed using a 70 degree cystoscopewith saline infusion.Findings: There was a 1-2cm bladder diverticulum of the right-sided bladder.Otherwise, normal bladder mucosa. No evidence of inflammation, stones,neoplasia, trabeculations, or other bladder abnormalities.The bladder trigone and ureteral orifices were seen and no abnormalitiesnoted. Normal urethra without inflammation, diverticulum, or other abnormality.Complications: noneProcedure Summary: Patient tolerated procedure well.Medications: NoneIMPRESSION: 57 yo woman with mesh erosion following retropubic sling - normalcysto.PLAN: See note from today.Martha Kothari RN 06/11/2017 2:55 PM SignedPt urine dark orange color. Unable to do urine dip today.Pt denies any symptoms of UTI and currently on amoxicillin for sinus infectionBlair Street MD 06/11/2017 5:06 PM SignedSoumya Abdi is a 57 year old female, G 3 P 3 who presents for a follow-up ofurinary incontinence, mesh erosion.History since last visit: No changes.Urinary Incontinence: yes, severeVoiding Dysfunction: noUrinary Frequency: yesUrinary Urgency: yesProlapse Symptoms: yes, mild bulgeDefecatory Dysfunction: yes, splints with BMFecal Incontinence: noAbnormal Bleeding: noPain: yes, crampingAbnormal Vaginal Discharge: noREVIEW OF SYSTEMSGeneral: No weight loss, malaise or feversSkin negativePsychiatric negativeNeurologic No history of headaches, syncope, paralysis, seizures or tremorsEndocrine No history of thyroid disorder, diabetes, cold intolerance, heatintolerance, polydypsiaCardiovascular No history of chest pain, palpitation, orthopnea, cyanosis,pedal edemaHematologic/Lymphatic negativeRespiratory No cough, hemoptysis, asthma, recent chest infection, wheezingGastrointestinal No blood in stool, pain with BM, tarry stool, persistentdiarrhea or constipationMusculoskeleta lNegativeOBJECTIVE:General : Well appearing, alert, in no acute distress, well-hydrated, wellnourished.Abdomen: Normal abdominal exam, Abdomen soft, non-tender. Bowel sounds normal.No masses, organomegalyPelvic:Ext. Genitalia, WNLVagina: erosion of midurethral sling at distal urethraCervix: AbsentUrethra: erosion of sling, mildly TTPBimanual: No tenderness, No massesReview of records: retropubic midurethral sling (not TVT)Impression: 57 yo woman with history of sling, now with sling erosion andurinary incontinence. Cysto normal today.Plan: 1. Discussed options - observation, vaginal estrogen, excision. Patientelects excision. She is aware this will worsen UI. She is interested indiscussing a staged procedure - autologous fascial sling or Dotson - ifnecessary.2. Continue vaginal estrogen.3. Continue miralax.4. Plan rectocele repair.KAI Kotharieferring Provider: ELENA PARKS [[id number]]Allergies As of Date: 06/11/2017 Noted Allergy ReactionLEVAQUIN (LEVOFLOXACIN) 08/04/2013 2 - RashDate Reviewed: 06/11/2017Reviewed by: Elena Parks - Fully AssessedReason for Visit: Procedure [88] Cmt: CystoscopyPrimary Visit Diagnosis:Erosion of vaginal mesh, subsequent encounter [T83.341D] Other Visit Diagnoses:Pre-procedure lab exam [Z01.812] Postmenopausal atrophic vaginitis [N95.2] Rectocele [N81.6]Order(s):SURGICAL REQUEST - ELECTIVE [7459321] Order #: [id number]: 1Prescriptions as of 06/11/2017 Sig: AMOXICILLIN ORAL Take by mouth. PREGABALIN 200 MG CAPSULE Take 200 mg by mouth three ti* EXENATIDE ER 2 MG SUBCUTANEOU* Inject subcutaneously once e* DOCUSATE SODIUM 100 MG CAPSULE Take 100 mg by mouth once leana* VARENICLINE 1 MG TABLET Take 1 mg by mouth twice dima* GLIMEPIRIDE 4 MG TABLET Take 4 mg by mouth twice dima* LEFLUNOMIDE 20 MG TABLET Take 20 mg by mouth once dima* ROSUVASTATIN 20 MG TABLET Take 20 mg by mouth once dima* TOLTERODINE ER 4 MG CAPSULE,E* Take 4 mg by mouth once daily. ESTRADIOL 0.01% (0.1 MG/GRAM)* Use 1 g vaginally as directed* OXYCODONE-ACETAMINOPHEN 5 MG-* four times daily as needed. ALPRAZOLAM 0.5 MG TABLET three times daily as needed. CITALOPRAM 40 MG TABLET once daily. ADVAIR DISKUS 500 MCG-50 MCG/* twice daily. TIZANIDINE 4 MG TABLET twice daily. GABAPENTIN 800 MG TABLET three times daily. FUROSEMIDE 20 MG TABLET once daily. * COMPOUNDED PRESCRIPTION rotuxin * PLAQUENIL 200 MG TABLET Take one(1) tablet daily. * MS CONTIN 30 MG TABLET,EXTEND* Take one(1) tablet two(2) kimberly* * FLONASE 50 MCG/ACTUATION NASA* 2 PUFFS TWICE DAILY * POTASSIUM CHLORIDE ER 10 MEQ * Take one(1) tablet daily. * ALBUTEROL 90 MCG/ACTUATION AE* PRN * BIPAP 16CM/22CM NIGHTLY * PROVIGIL 200 MG TABLET Take one(1) tablet daily in t* * REQUIP 0.5 MG TABLET 2 mg daily * COMPOUNDED PRESCRIPTION CALCIUM 1200MG PLUS VITAMIN D* * SINEMET CR 25 MG-100 MG TABLE* 2 tabs at HS ALENDRONATE 70 MG TABLET once each week.Problem List As Of Date 06/11/2017 Noted Resolved ABNORMAL FINDINGS-BREAST [793.8] INVALID FOR* CORONARY ATHEROSCLER UNSPEC VESSEL [I25.10] INVALID FOR* DIABETES MELLITUS TYPE II-UNCOMPL [E11.9] INVALID FOR* Rheumatoid arthritis [M06.9] More... Multiple sclerosis [G35] More... COPD (chronic obstructive pulmonary disease) [J* More... HTN (hypertension) [I10] More... Hyperlipidemia [E78.5] More... CAD (coronary artery disease) [I25.10] More... DM (diabetes mellitus) [E11.9] More... DJD (degenerative joint disease) [M19.90] More... Sleep apnea [G47.30] More... CVA (cerebral infarction) [I63.9] More... Depression [F32.9] More... RLS (restless legs syndrome) [G25.81] More... Migraine [G43.909] DDD (degenerative disc disease) [VON9663] Lumbar radiculopathy [M54.16] Cervical radiculopathy [M54.12] Peripheral neuropathy [G62.9] Smoker [F17.200] Anxiety and depression [F41.8] INVALID FOR* Urinary incontinence [R32] INVALID FOR* Chronic pain [G89.29]Visit Notes:>> Elma Gross RN Mon Jun 11, 2017 2:52 PM Status: SignedPt urine dark orange color. Unable to do urine dip today.Pt denies any symptoms of UTI and currently on amoxicillin for sinusinfectionENRRIQUE Streetollow-up and Disposition History RecordedEncounter Number: [id number] Status:Closed by ELENA PARKS on 06/11/17 [facility] PROCEDUREon 06-11-2017 PROCEDURE HNO ID: [id number] thor: Elena Springerervice: (none)Author Type: PhysicianType: ProceduresFiled: 06/11/2017 5:06 PMNote Text:06/11/2017Soumya Abdi presents today for a diagnostic cystoscopy. Indication:Urinary incontinence in setting of previous sling with exposure.UNIVERSAL PROTOCOL / SAFETY CHECKLISTProcedure to be performed: Office CystoscopySign in Communication: CompletedTime Out: Team Confirms the Correct Patient, Correct Procedure, CorrectSite and Site Marking, Correct Position (if applicable), Prep and Dry Time(if applicable). Time: 305Affirmation of Time Out: YESSign Out Discussion: Landon Gross RNPROCEDURE:The patient was taken to the procedure room, placed in lithotomy positionand prepped in the usual fashion. Anesthesia: Intraurethral Lidocainejelly 5 mL.Video-assisted cystourethroscopy was performed using a 70 degreecystoscope with saline infusion.Findings: There was a 1-2cm bladder diverticulum of the right-sidedbladder. Otherwise, normal bladder mucosa. No evidence of inflammation,stones, neoplasia, trabeculations, or other bladder abnormalities.The bladder trigone and ureteral orifices were seen and no abnormalitiesnoted. Normal urethra without inflammation, diverticulum, or otherabnormality.Complicat ions: noneProcedure Summary: Patient tolerated procedure well.Medications: NoneIMPRESSION: 57 yo woman with mesh erosion following retropubic sling -normal cysto.PLAN: See note from today.Elena Parks MD [facility] PROGRESSon 06-11-2017 PROGRESS HNO ID: [id number] thor: Elena Springerervice: (none)Author Type: PhysicianType: Progress NotesFiled: 06/11/2017 5:06 PMNote Text:Soumya Abdi is a 57 year old female, G 3 P 3 who presents for afollow-up of urinary incontinence, mesh erosion.History since last visit: No changes.Urinary Incontinence: yes, severeVoiding Dysfunction: noUrinary Frequency: yesUrinary Urgency: yesProlapse Symptoms: yes, mild bulgeDefecatory Dysfunction: yes, splints with BMFecal Incontinence: noAbnormal Bleeding: noPain: yes, crampingAbnormal Vaginal Discharge: noREVIEW OF SYSTEMSGeneral: No weight loss, malaise or feversSkin negativePsychiatric negativeNeurologic No history of headaches, syncope, paralysis, seizures ortremorsEndocrine No history of thyroid disorder, diabetes, cold intolerance, heatintolerance, polydypsiaCardiovascular No history of chest pain, palpitation, orthopnea, cyanosis,pedal edemaHematologic/Lymphatic negativeRespiratory No cough, hemoptysis, asthma, recent chest infection, wheezingGastrointestinal No blood in stool, pain with BM, tarry stool, persistentdiarrhea or constipationMusculoskeleta lNegativeOBJECTIVE:General : Well appearing, alert, in no acute distress, well-hydrated, wellnourished.Abdomen: Normal abdominal exam, Abdomen soft, non-tender. Bowel soundsnormal. No masses, organomegalyPelvic:Ext. Genitalia, WNLVagina: erosion of midurethral sling at distal urethraCervix: AbsentUrethra: erosion of sling, mildly TTPBimanual: No tenderness, No massesReview of records: retropubic midurethral sling (not TVT)Impression: 57 yo woman with history of sling, now with sling erosion andurinary incontinence. Cysto normal today.Plan: 1. Discussed options - observation, vaginal estrogen, excision.Patient elects excision. She is aware this will worsen UI. She isinterested in discussing a staged procedure - autologous fascial sling orBurch - if necessary.2. Continue vaginal estrogen.3. Continue miralax.4. Plan rectocele repair.Elena Parks MD [facility] CNCOon 05-15-2017 CNCO Letter [id number] [place], [place] [address]TqdbElena Parks M.D.[facility] DisordersOB/DIRECTOR OF PEDIATRIC REHABILITATION AND Women's Health [place] Office: appointments: Fax: [facility] 2016Alphonso Rivera MD[address] [place], [place] [address]RE: Soumya AbdiDOB: 1960Dr. Rivera,Thank you for your kind referral. Enclosed is a copy of the clinic notesfrom Soumya Abdi' visit on May 142016.If you have any questions or if I can be of further assistance, please do nothesitate to call.Sincerely,Elena Parks MDBR:[facility] CNOVon 05-14-2017 CNOV Office Visit ([facility] SOUMYA ABDI ([id number]) 1960 FDate Time Provider Bysvqpjfom18/13/17 10:50 AM ELENA PARKS [facility] During your visit today, we recorded the following information about you: Blood pressure Weight Height 118/84 103 kg 1.676 Earline Parks MD 05/14/2017 2:42 PM SignedCHIEF COMPLAINT:Soumya Abdi is a 57 year old White Not female who is herefor a consultation requested by Dr. Ramirez for an opinion regarding Patientpresents with:New Patient: Bladder Mesh ProblemsThe patient is most bothered by the constant leaking from urethra and vagina.Issues:1. Urinary incontinence - bothered by frequency, voids 10 times per day and 10times at night. Not much urge UI though sometimes leaks without urge (lying inbed). Leakage related to coughing and walking. Using pads. Had sling placedin 2012 (?), helped initially. Now worse than pre-op. Dr. Ramirez has concernsof mesh erosion.2. Vaginal bleeding related to Poise Impressa insertion. Also noted whenwiping.3. No bulge symptoms. Was told she has rectocele and does splint occasionally(on side of rectum).4. Medical co-morbidities, polypharmacy.HISTORY OF PRESENT ILLNESSUrinary Symptoms:In the past 4 weeks:How often do you leak urine? several times a day (4)We would like to know how much urine you think you leak.How much urine do you usually leak whether you wear protection or not? amoderate amount (4)Overall, how much does leaking urine interfere with your everyday life? (on ascale from 0-10, 0 being not at all, 10 being a great deal) 8ICIQ-UI total score (of the above 3 questions): 16Leaks before you can get to the toilet? YesLeaks when you cough or sneeze? YesLeaks when you are asleep? YesLeaks when you are physically active/exercising YesLeaks when you have finished urinating and are dressed YesLeaks for no obvious reason YesLeaks all the time YesDo you leak urine associated with a feeling of urgency? NoPrevious UI Treatment: noneVoiding Dysfunction: Feeling of incomplete emptying, Post-void dribblingDo you feel that you frequently have the urge to urinate? yes, # of voids perhour/days 10 times during the day, how much fluid do you consume per day?Water 32-48 oz, Caffeine cups, Carbonation 8-12 ozNumber of voids after going to bed but before wakin per dayDo you have pain with urination (dysuria): SometimesHave you ever seen or been told that you have blood in the urine: NoHow many UTI's have you had in the last year? NoDo you need to wear a pad for urinary leakage? yes-urinary; number of pads perday 3-4Prolapse Symptoms:Do you usually have a bulge or something falling out that you can see or feelin the vaginal area: Yes, how much does it bother you: 3 Moderately ANDquot;Idon't see it falling out the the vagina it's like in between the rectum and thevaginaANDquot;Do you ever have to push on the vagina or around the rectum to have or completea bowel movement: Yes, how much does it bother you: 3 ModeratelyPrevious Treatment: Surgery ANDquot;my uterus was growing so when they did thehysterotomy I had bladder repair, vaginal repair, and rectal repairANDquot;Defecatory Symptoms:How would you describe your usual or most common stool type over the last 3months? Type 2: Sausage-shaped but lumpyIn the last 3 months how often did you:Have fewer than 3 bowel movements (0-2) a week? (1) SometimesHave hard or lumpy stools?(2) OftenStrain during bowel movements?Have a feeling of incomplete emptying after bowelmovements?(2) OftenHave a sensation that the stool could not be passed, (i.e. Blocked) when havinga bowel movement?(3) Most of the timeHave difficulty relaxing or letting go to allow the stool to come out during abowel movement?(1) SometimesHave loose, mushy or watery stools?(1) SometimesFecal Incontinence:How often have you experienced the following conditions during the past 4weeks?1. Accidental bowel leakage of solid stool?Never (0)- no episode in the past 6lepno2. Accidental bowel leakage of liquid stool?Rarely (1)-1 episode in the past 0vapbq5. Accidental bowel leakage of gas?Rarely (1)-1 episode in the past 4 weeks4. How often did these situations alter your lifestyle?Sometimes (2)During the past 4 weeks, did you:5. Need to wear a pad? No (0)6. Need to take constipating medicines? Yes (2)7. Lack the ability to defer defecation for 15 minutes? Yes (2)[place] Total Score: 8Sexual Activity: Not on fileAre you sexually active?: No other: No partnerGYN History:Last Pap: Date: 2016; Normal ; Last Mammogram: Her last mammogram was 2015. Shehas a previous history of an abnormal mammogram with ANDquot;a lymph node theywere watchingANDquot;LMP: No LMP recorded. Patient has had a hysterectomy.; Menopause: yes:history of post menopausal bleeding: no: Menstrual History: NA;Are you currently using oral or vaginal hormone replacement therapy? noHave you used hormone replacement therapy in the past? noDeliveries: SVDAny third or fourth degree lacerations/tears into anal sphincter?: YesLast Colonoscopy: Approximately 5 years agoColleen Menard, RNNovember 2016 11:51 AMPAST MEDICAL HISTORYDiagnosis Date- Anxiety and depression- CAD (coronary artery disease) CAD: mild disease. [facility] was 12/26/05: No intervention. stable- Cervical radiculopathy- Chronic pain- COPD (chronic obstructive pulmonary disease) ([facility]) COPD- CVA (cerebral infarction) stoke- mini strokes- DDD (degenerative disc disease)- Depression depression- DJD (degenerative joint disease) degenerative joint disease- DM (diabetes mellitus) ([facility]) borderline diabetes- : on glucophage- HTN (hypertension) Hypertension- Hyperlipidemia hyperlipidemia- Lumbar radiculopathy- Migraine- Multiple sclerosis ([facility]) Multiple sclerosis- Peripheral neuropathy ([facility])- Rheumatoid arthritis ([facility]) rheumatoid arthritis- RLS (restless legs syndrome) restless leg syndrome- Sleep apnea sleep apnea- Smoker- Urinary incontinencePAST SURGICAL HISTORYProcedure Laterality Date- ANTERIOR INTERBODY FUSION, CERVICAL 2007 at [facility]- BX OF BREAST; INCISIONAL 1998 right breast for cyst- PAST SURGICAL HISTORY OF 01/2005 [facility] BSO- PAST SURGICAL HISTORY OF rectocele, vagicele with hyster- PAST SURGICAL HISTORY OF 2003,1997 tumor excion left elbow and right foot- PAST SURGICAL HISTORY OF 1961 TANDamp; A- PAST SURGICAL HISTORY OF DANDamp;C x 3 after childbirthFAMILY HISTORYProblem Relation Age of Onset- Breast Cancer Paternal Aunt diagnosised age 45- Cancer Other no known family h/o ovarian cancer- Heart Father- Emphysema Brother- brain aneurysm [Other] [OTHER] MotherSocial History: Social History Marital status: Spouse name: Years of education: Number of children:Social History Main Topics Smoking status: Former Smoker Packs/day: 0.30 Years: 32.00 Types: Cigarettes Quit date: 2013 Alcohol use: NoMartial Status: DivorcedPhysical Activity:During the past month, on average, how many days in each week did you dostrenuous or very hard exercise; that is, exercise that caused you to work up asweat and made your heart beat fast. For example: aerobics, dancing, jogging,or tennis? 0Does your health now limit you in vigorous activities such as running, liftingheavy objects, participating in strenuous sports? Yes, limited a little (2)During the past three months, how often did you perform physical activitiesthat required a major effort, such as lifting heavy furniture, shoveling snow,or lifting people or object weighing more than 25 lbs? Never (1)FUNCTIONAL STATUS: Walk indoors, such as around the house (1.75 METs)Do light work around the house, such as dusting or washing dishes (2.70 METs)Take care of self, that is eating, dressing, bathing, using the toilet (2.75METs)Do moderate work around the house such as vacuuming, sweeping floors, orcarrying in groceries (3.50 METs)Climb a flight of stairs or walk up a hill (5.50 METs)REVIEW OF SYSTEMSGeneral: chills and weakness in legsSkin: Negative for rash or itching.Psychiatric: depressionNeurologic: Negative for new headache or syncope.Endocrine: + heat intoleranceCardiovascular: Negative for recent chest pain, chest pressure or chestdiscomfort.Hematologi c/Lymphatic: Negative for easy bruising or excessive bleeding.Respiratory: COPD - has wheezingGastrointestinal: abdominal pain, vomitingMusculoskeletal: muscle pain, back pain, joint pain, joint stiffnessI have reviewed the above history of present illness, past medical history andreview of systems as completed by my RN.OBJECTIVEPhysical Exam:Constitutional: Vital and BMI BP 118/84 Ht 167.6 cm (5' 6ANDquot;) Wt 103 kg(227 lb) BMI 36.64 kg/m2 BMI 36.64 kg/(m2)General Appearance: Well appearing, alert, in no acute distress, well-hydrated,well nourished.Mood and affect: pleasant, appropriateSkin: Skin color, texture, turgor normal, no suspicious rashes or lesionsNeck: Supple, no adenopathy; thyroid symmetric, normal size, no bruitsLungs: normal inspiratory effortHeart: RRR without murmur, gallop, or rubs. No ectopyBreasts:DeferredAbdo men: Normal abdominal exam and Abdomen soft, non-tender. No masses,organomegalyPelvic: Ext. Genitalia: No lesions or other abnormalities Vagina: Ant wall - Normal support ; Post wall - Normal support Cervix / Franklin - Normal support Prolapse Noted: NoCervix: AbsentUrethra: mesh erosion on distal urethra. Able to see and palpate mesh edge.White area noted, ?stoneBimanual: No tenderness, No massesShe does not have myofascial tenderness in her levator ani and obturatorinternus muscles.Saddle Sensory Exam (S-4): normalAnal Healy: NoBrink's Components AssessmentPressure c. Moderate squeeze, felt all the way around the finger surtface.Duration c. ANDgt;1ANDlt; 3 secondsDisplacement of vertical plane c. Whole length of fingers move anteriorlyDRESS Resting Score: (3) normalDRESS Rectal Squeeze Score: (3) normalSphincter Defect: noRectocele Present: yes, distalIMPRESSION:Soumya Abdi is a 57 year old female with Defecatory Dysfunction /Constipation, rectocele, vaginal atrophy, mesh exposure, urinary incontinence.PLAN:1. Urinary incontinence in setting of previous sling with exposure. Op noteordered. Will check cystoscopy. In mean time, start vaginal estrogen. Rxprovided, precautions reviewed. Will address UI after additional information isobtained.2. Vaginal atrophy - start vaginal estrogen.3. Constipation, rectocele - discussed findings and symptoms. She isinterested in starting a bowel regimen. Start miralax 1 capful and titate asneeded.4. FU for cystoscopy.cc: Dr. Bazan final recommendations will be communicated back to the requesting physicianby way of shared Medical record or letter via US mail.Filiberto Kothari Provider: SELF [[id number]]Allergies As of Date: 05/14/2017 Noted Allergy ReactionLEVAQUIN (LEVOFLOXACIN) 08/04/2013 2 - RashDate Reviewed: 05/14/2017Reviewed by: Elena Parks - Fully AssessedReason for Visit: New Patient [172] Cmt: Bladder Mesh ProblemsPrimary Visit Diagnosis:Mixed stress and urge urinary incontinence [N39.46] Other Visit Diagnoses:Other urinary incontinence [N39.498] Erosion of vaginal mesh, initial encounter ([facility]) [T83.471A] Postmenopausal atrophic vaginitis [N95.2] Rectocele [N81.6]Order(s):UA DIP B/O [[id number]] Order #: [id number] estradiol (ESTRACE) 0.01 % (0.1 mg/gram) vaginal creamUse 1 g vaginally as directed. Use daily x 2 weeks and then 2-3 times per week as directed. May apply with finger.Disp: 1 TubeRfl: 4Prescriptions as of 05/14/2017 Sig: PREGABALIN 200 MG CAPSULE Take 200 mg by mouth three ti* EXENATIDE ER 2 MG SUBCUTANEOU* Inject subcutaneously once e* DOCUSATE SODIUM 100 MG CAPSULE Take 100 mg by mouth once leana* VARENICLINE 1 MG TABLET Take 1 mg by mouth twice dima* GLIMEPIRIDE 4 MG TABLET Take 4 mg by mouth twice dima* LEFLUNOMIDE 20 MG TABLET Take 20 mg by mouth once dima* ROSUVASTATIN 20 MG TABLET Take 20 mg by mouth once dima* TOLTERODINE ER 4 MG CAPSULE,E* Take 4 mg by mouth once daily. OXYCODONE-ACETAMINOPHEN 5 MG-* four times daily as needed. ALPRAZOLAM 0.5 MG TABLET three times daily as needed. CITALOPRAM 40 MG TABLET once daily. ADVAIR DISKUS 500 MCG-50 MCG/* twice daily. TIZANIDINE 4 MG TABLET twice daily. FUROSEMIDE 20 MG TABLET once daily. * COMPOUNDED PRESCRIPTION rotuxin * PLAQUENIL 200 MG TABLET Take one(1) tablet daily. * MS CONTIN 30 MG TABLET,EXTEND* Take one(1) tablet two(2) kimberly* * FLONASE 50 MCG/ACTUATION NASA* 2 PUFFS TWICE DAILY * POTASSIUM CHLORIDE ER 10 MEQ * Take one(1) tablet daily. * ALBUTEROL 90 MCG/ACTUATION AE* PRN * BIPAP 16CM/22CM NIGHTLY * PROVIGIL 200 MG TABLET Take one(1) tablet daily in t* * REQUIP 0.5 MG TABLET 2 mg daily * COMPOUNDED PRESCRIPTION CALCIUM 1200MG PLUS VITAMIN D* * SINEMET CR 25 MG-100 MG TABLE* 2 tabs at HS ESTRADIOL 0.01% (0.1 MG/GRAM)* Use 1 g vaginally as directed* ALENDRONATE 70 MG TABLET once each week. GABAPENTIN 800 MG TABLET three times daily.Medication notes this encounter ALENDRONATE 70 MG TABLET >> Colleen Menard RN, RN 05/14/2017 11:29 AM >> COLLEEN MENADR SunMay 14, 2017 11:29 AM Not taking GABAPENTIN 800 MG TABLET >> Colleen Menard RN, RN 05/14/2017 11:30 AM >> COLLEEN MENARD SunMay 14, 2017 11:30 AM Not takingProblem List As Of Date 05/14/2017 Noted Resolved ABNORMAL FINDINGS-BREAST [793.8] INVALID FOR* CORONARY ATHEROSCLER UNSPEC VESSEL [I25.10] INVALID FOR* DIABETES MELLITUS TYPE II-UNCOMPL [E11.9] INVALID FOR* Rheumatoid arthritis [M06.9] More... Multiple sclerosis [G35] More... COPD (chronic obstructive pulmonary disease) [J* More... HTN (hypertension) [I10] More... Hyperlipidemia [E78.5] More... CAD (coronary artery disease) [I25.10] More... DM (diabetes mellitus) [E11.9] More... DJD (degenerative joint disease) [M19.90] More... Sleep apnea [G47.30] More... CVA (cerebral infarction) [I63.9] More... Depression [F32.9] More... RLS (restless legs syndrome) [G25.81] More... Migraine [G43.909] DDD (degenerative disc disease) [CQV3824] Lumbar radiculopathy [M54.16] Cervical radiculopathy [M54.12] Peripheral neuropathy [G62.9] Smoker [F17.200] Anxiety and depression [F41.8] INVALID FOR* Urinary incontinence [R32] INVALID FOR* Chronic pain [G89.29]Prescriptions ordered this encounter Disp Refills Start End ESTRADIOL 0.01% (0.1 MG/GRAM) VAGINA* 1 Tu* 4 05/14/2017 Route: VAGINAL Sig: Use 1 g vaginally as directed. Use daily x 2 weeks and then 2-3 times per week as directed. May apply with finger.Follow-up and Disposition History RecordedEncounter Number: [id number] Status:Closed by ELENA PARKS on 05/14/17 [facility] PROGRESSon 05-14-2017 PROGRESS HNO ID: [id number] thor: Elena Michaud Gianervice: (none)Author Type: PhysicianType: Progress NotesFiled: 05/14/2017 2:42 PMNote Text:CHIEF COMPLAINT:Soumya Abdi is a 57 year old White Not female who ishere for a consultation requested by Dr. Ramirez for an opinion regardingPatient presents with:New Patient: Bladder Mesh ProblemsThe patient is most bothered by the constant leaking from urethra andvagina.Issues:1. Urinary incontinence - bothered by frequency, voids 10 times per dayand 10 times at night. Not much urge UI though sometimes leaks withouturge (lying in bed). Leakage related to coughing and walking. Usingpads. Had sling placed in 2012 (?), helped initially. Now worse thanpre-op. Dr. Ramirez has concerns of mesh erosion.2. Vaginal bleeding related to Poise Impressa insertion. Also noted whenwiping.3. No bulge symptoms. Was told she has rectocele and does splintoccasionally (on side of rectum).4. Medical co-morbidities, polypharmacy.HISTORY OF PRESENT ILLNESSUrinary Symptoms:In the past 4 weeks:How often do you leak urine? several times a day (4)We would like to know how much urine you think you leak.How much urine do you usually leak whether you wear protection or not? amoderate amount (4)Overall, how much does leaking urine interfere with your everyday life?(on a scale from 0-10, 0 being not at all, 10 being a great deal) 8ICIQ-UI total score (of the above 3 questions): 16Leaks before you can get to the toilet? YesLeaks when you cough or sneeze? YesLeaks when you are asleep? YesLeaks when you are physically active/exercising YesLeaks when you have finished urinating and are dressed YesLeaks for no obvious reason YesLeaks all the time YesDo you leak urine associated with a feeling of urgency? NoPrevious UI Treatment: noneVoiding Dysfunction: Feeling of incomplete emptying, Post-void dribblingDo you feel that you frequently have the urge to urinate? yes, # of voidsper hour/days 10 times during the day, how much fluid do you consume perday? Water 32-48 oz, Caffeine cups, Carbonation 8-12 ozNumber of voids after going to bed but before wakin per dayDo you have pain with urination (dysuria): SometimesHave you ever seen or been told that you have blood in the urine: NoHow many UTI's have you had in the last year? NoDo you need to wear a pad for urinary leakage? yes-urinary; number of padsper day 3-4Prolapse Symptoms:Do you usually have a bulge or something falling out that you can see orfeel in the vaginal area: Yes, how much does it bother you: 3 Moderately I don't see it falling out the the vagina it's like in between therectum and the vagina Do you ever have to push on the vagina or around the rectum to have orcomplete a bowel movement: Yes, how much does it bother you: 3 ModeratelyPrevious Treatment: Surgery my uterus was growing so when they did thehysterotomy I had bladder repair, vaginal repair, and rectal repair Defecatory Symptoms:How would you describe your usual or most common stool type over the last3 months? Type 2: Sausage-shaped but lumpyIn the last 3 months how often did you:Have fewer than 3 bowel movements (0-2) a week? (1) SometimesHave hard or lumpy stools?(2) OftenStrain during bowel movements?Have a feeling of incomplete emptying afterbowel movements?(2) OftenHave a sensation that the stool could not be passed, (i.e. Blocked) whenhaving a bowel movement?(3) Most of the timeHave difficulty relaxing or letting go to allow the stool to come outduring a bowel movement?(1) SometimesHave loose, mushy or watery stools?(1) SometimesFecal Incontinence:How often have you experienced the following conditions during the past 4weeks?1. Accidental bowel leakage of solid stool?Never (0)- no episode in thepast 4 weeks2. Accidental bowel leakage of liquid stool?Rarely (1)-1 episode in thepast 4 weeks3. Accidental bowel leakage of gas?Rarely (1)-1 episode in the past [id number]. How often did these situations alter your lifestyle?Sometimes (2)During the past 4 weeks, did you:5. Need to wear a pad? No (0)6. Need to take constipating medicines? Yes (2)7. Lack the ability to defer defecation for 15 minutes? Yes (2)[place] Total Score: 8Sexual Activity: Not on fileAre you sexually active?: No other: No partnerGYN History:Last Pap: Date: 2015; Normal ; Last Mammogram: Her last mammogram [id number]. She has a previous history of an abnormal mammogram with a lymphnode they were watching LMP: No LMP recorded. Patient has had a hysterectomy.; Menopause: yes:history of post menopausal bleeding: no: Menstrual History: NA;Are you currently using oral or vaginal hormone replacement therapy? noHave you used hormone replacement therapy in the past? noDeliveries: SVDAny third or fourth degree lacerations/tears into anal sphincter?: YesLast Colonoscopy: Approximately 5 years agoColleen Menard, RNNovember 2016 11:51 AMPAST MEDICAL HISTORYDiagnosis Date- Anxiety and depression- CAD (coronary artery disease) CAD: mild disease. [facility] was 12/[facility]: No intervention. stable- Cervical radiculopathy- Chronic pain- COPD (chronic obstructive pulmonary disease) ([facility]) COPD- CVA (cerebral infarction) stoke- mini strokes- DDD (degenerative disc disease)- Depression depression- DJD (degenerative joint disease) degenerative joint disease- DM (diabetes mellitus) ([facility]) borderline diabetes- : on glucophage- HTN (hypertension) Hypertension- Hyperlipidemia hyperlipidemia- Lumbar radiculopathy- Migraine- Multiple sclerosis ([facility]) Multiple sclerosis- Peripheral neuropathy ([facility])- Rheumatoid arthritis ([facility]) rheumatoid arthritis- RLS (restless legs syndrome) restless leg syndrome- Sleep apnea sleep apnea- Smoker- Urinary incontinencePAST SURGICAL HISTORYProcedure Laterality Date- ANTERIOR INTERBODY FUSION, CERVICAL 2007 at [facility]- BX OF BREAST; INCISIONAL 1998 right breast for cyst- PAST SURGICAL HISTORY OF 01/2005 [facility] BSO- PAST SURGICAL HISTORY OF rectocele, vagicele with hyster- PAST SURGICAL HISTORY OF 2003,1997 tumor excion left elbow and right foot- PAST SURGICAL HISTORY OF 1961 TAND A- PAST SURGICAL HISTORY OF DANDC x 3 after childbirthFAMILY HISTORYProblem Relation Age of Onset- Breast Cancer Paternal Aunt diagnosised age 45- Cancer Other no known family h/o ovarian cancer- Heart Father- Emphysema Brother- brain aneurysm [Other] [OTHER] MotherSocial History: Social History Marital status: Spouse name: Years of education: Number of children:Social History Main Topics Smoking status: Former Smoker Packs/day: 0.30 Years: 32.00 Types: Cigarettes Quit date: 2013 Alcohol use: NoMartial Status: DivorcedPhysical Activity:During the past month, on average, how many days in each week did you dostrenuous or very hard exercise; that is, exercise that caused you to workup a sweat and made your heart beat fast. For example: aerobics, dancing,jogging, or tennis? 0Does your health now limit you in vigorous activities such as running,lifting heavy objects, participating in strenuous sports? Yes, limited alittle (2)During the past three months, how often did you perform physicalactivities that required a major effort, such as lifting heavy furniture,shoveling snow, or lifting people or object weighing more than 25 lbs?Never (1)FUNCTIONAL STATUS: Walk indoors, such as around the house (1.75 METs)Do light work around the house, such as dusting or washing dishes (2.70METs)Take care of self, that is eating, dressing, bathing, using the toilet(2.75 METs)Do moderate work around the house such as vacuuming, sweeping floors, orcarrying in groceries (3.50 METs)Climb a flight of stairs or walk up a hill (5.50 METs)REVIEW OF SYSTEMSGeneral: chills and weakness in legsSkin: Negative for rash or itching.Psychiatric: depressionNeurologic: Negative for new headache or syncope.Endocrine: + heat intoleranceCardiovascular: Negative for recent chest pain, chest pressure or chestdiscomfort.Hematologi c/Lymphatic: Negative for easy bruising or excessive bleeding.Respiratory: COPD - has wheezingGastrointestinal: abdominal pain, vomitingMusculoskeletal: muscle pain, back pain, joint pain, joint stiffnessI have reviewed the above history of present illness, past medical historyand review of systems as completed by my RN.OBJECTIVEPhysical Exam:Constitutional: Vital and BMI BP 118/84 Ht 167.6 cm (5' 6 ) Wt 103 kg(227 lb) BMI 36.64 kg/m2 BMI 36.64 kg/(m2)General Appearance: Well appearing, alert, in no acute distress,well-hydrated, well nourished.Mood and affect: pleasant, appropriateSkin: Skin color, texture, turgor normal, no suspicious rashes or lesionsNeck: Supple, no adenopathy; thyroid symmetric, normal size, no bruitsLungs: normal inspiratory effortHeart: RRR without murmur, gallop, or rubs. No ectopyBreasts:DeferredAbdo men: Normal abdominal exam and Abdomen soft, non-tender. No masses,organomegalyPelvic: Ext. Genitalia: No lesions or other abnormalities Vagina: Ant wall - Normal support ; Post wall - Normal support Cervix / Franklin - Normal support Prolapse Noted: NoCervix: AbsentUrethra: mesh erosion on distal urethra. Able to see and palpate meshedge. White area noted, ?stoneBimanual: No tenderness, No massesShe does not have myofascial tenderness in her levator ani and obturatorinternus muscles.Saddle Sensory Exam (S-4): normalAnal Healy: NoBrink's Components AssessmentPressure c. Moderate squeeze, felt all the way around the finger surtface.Duration c. >1< 3 secondsDisplacement of vertical plane c. Whole length of fingers move anteriorlyDRESS Resting Score: (3) normalDRESS Rectal Squeeze Score: (3) normalSphincter Defect: noRectocele Present: yes, distalIMPRESSION:Soumya Abdi is a 57 year old female with Defecatory Dysfunction /Constipation, rectocele, vaginal atrophy, mesh exposure, urinaryincontinence.PLAN:1 . Urinary incontinence in setting of previous sling with exposure. Opnote ordered. Will check cystoscopy. In mean time, start vaginalestrogen. Rx provided, precautions reviewed. Will address UI afteradditional information is obtained.2. Vaginal atrophy - start vaginal estrogen.3. Constipation, rectocele - discussed findings and symptoms. She isinterested in starting a bowel regimen. Start miralax 1 capful and titateas needed.4. FU for cystoscopy.cc: Dr. Bazan final recommendations will be communicated back to the requestingphysician by way of shared Medical record or letter via US mail.Elena Parks MD Normal [facility] Vital Signs Date Time Vital Sign Value Performing Clinician Facility 05-13-2024 10:34-0500 Body mass index (BMI) [Ratio] 29.96 kg/m2 Maria Metcalf IMAGE ARCHIVIST Work Phone: [facility] 05-13-2024 10:34-0500 Body weight 84.19 kg Maria Metcalf IMAGE ARCHIVIST Work Phone: [facility] 05-13-2024 10:34-0500 Diastolic blood pressure 80 mm[Hg] Maria Metcalf IMAGE ARCHIVIST Work Phone: [facility] 05-13-2024 10:34-0500 Heart rate 64 /min Maria Metcalf IMAGE ARCHIVIST Work Phone: [facility] 05-13-2024 10:34-0500 Respiratory rate 17 /min Maria Metcalf IMAGE ARCHIVIST Work Phone: [facility] 05-13-2024 10:34-0500 SaO2% (BldA) [Mass fraction] 94 % Maria Metcalf IMAGE ARCHIVIST Work Phone: [facility] 05-13-2024 10:34-0500 Systolic blood pressure 115 mm[Hg] Maria Metcalf IMAGE ARCHIVIST Work Phone: [facility] 09-08-2023 12:17-0500 Body temperature 97.88 [degF] Scotty Huggins [facility] 09-08-2023 12:17-0500 Diastolic blood pressure 97 mm[Hg] Scotty Huggins [facility] 09-08-2023 12:17-0500 Heart rate 105 /min Scotty Joseluis [facility] 09-08-2023 12:17-0500 Mean blood pressure 115 mm[Hg] Scotty Joseluis [facility] 09-08-2023 12:17-0500 Respiratory rate 15 /min Scotty Joseluis [facility] 09-08-2023 12:17-0500 SaO2% (BldA) [Mass fraction] 93 % Scotty Joseluis [facility] 09-08-2023 12:17-0500 Systolic blood pressure 152 mm[Hg] Scotty Joseluis [facility] 09-08-2023 12:07-0500 Hourly Rounding Scotty Joseluis [facility] 09-08-2023 12:07-0500 Promise to Return Scotty Joseluis [facility] 09-08-2023 11:03-0500 Diastolic blood pressure 116 mm[Hg] Scotty Joseluis [facility] 09-08-2023 11:03-0500 Heart rate 110 /min Scotty Joseluis [facility] 09-08-2023 11:03-0500 Hourly Rounding Scotty Joseluis [facility] 09-08-2023 11:03-0500 Mean blood pressure 135 mm[Hg] Scotty Joseluis [facility] 09-08-2023 11:03-0500 Promise to Return Scotty Joseluis [facility] 09-08-2023 11:03-0500 Respiratory rate 20 /min Scotty Joseluis [facility] 09-08-2023 11:03-0500 SaO2% (BldA) [Mass fraction] 96 % Scotty Joseluis [facility] 09-08-2023 11:03-0500 Systolic blood pressure 174 mm[Hg] Scotty Joseluis [facility] 09-08-2023 10:02-0500 Hourly Rounding Scotty Duttae [facility] 09-08-2023 10:02-0500 Promise to Return Scotty Duttae [facility] 09-08-2023 10:00-0500 Body temperature 99.86 [degF] Scotty Joseluis [facility] 09-08-2023 10:00-0500 Diastolic blood pressure 109 mm[Hg] Scotty Joseluis [facility] 09-08-2023 10:00-0500 Heart rate 101 /min Scotty Joseluis [facility] 09-08-2023 10:00-0500 Mean blood pressure 128 mm[Hg] Scotty Joseluis [facility] 09-08-2023 10:00-0500 Respiratory rate 18 /min Scotty Joseluis [facility] 09-08-2023 10:00-0500 Systolic blood pressure 167 mm[Hg] Scotty Joseluis [facility] 09-08-2023 04:00-0500 Body temperature 97.7 [degF] Scotty Joseluis [facility] 09-07-2023 14:59-0500 Respiratory rate 24 /min Scotty Joseluis [facility] 09-07-2023 14:34-0500 Respiratory rate 28 /min Scotty Joseluis [facility] 09-07-2023 14:00-0500 gluc 250 mg/dL Scotty Huggins [facility] 09-07-2023 14:00-0500 gluc Scotty Huggins [facility] 09-07-2023 13:57-0500 Heart rate 86 /min Scotty Huggins [facility] 09-07-2023 13:57-0500 Respiratory rate 18 /min Scotty Huggins [facility] 08-15-2023 13:16-0500 Body height 167.6 cm Ludwin Wen MD Work Phone: [facility] 08-15-2023 13:16-0500 Body mass index (BMI) [Ratio] 30.67 kg/m2 Ludwin Wen MD Work Phone: [facility] 08-15-2023 13:16-0500 Body weight 86.18 kg Ludwin Wen MD Work Phone: [facility] 08-15-2023 13:16-0500 Diastolic blood pressure 76 mm[Hg] Ludwin Wen MD Work Phone: [facility] 08-15-2023 13:16-0500 Heart rate 68 /min Ludwin Wen MD Work Phone: [facility] 08-15-2023 13:16-0500 SaO2% (BldA) [Mass fraction] 95 % Ludwin Wen MD Work Phone: [facility] 08-15-2023 13:16-0500 Systolic blood pressure 128 mm[Hg] Ludwin Wen MD Work Phone: [facility] Healthcare Encounters Encounter Date Encounter Type Care Provider Facility Start: 08-01-2024 End: 08-01-2024 Clinisync Result Encounter Generic External Data Provider [facility] Unsolicited Start: 08-01-2024 End: 08-01-2024 Clinisync Result Encounter Generic External Data Provider [facility] External Department Unsolicited Start: 07-29-2024 End: 07-29-2024 Refkana Wen MD Work Phone: [facility] Comment on above: Rheumatoid arthritis involving multiple sites with positive rheumatoid factor ([facility]/HCC) Start: 06-26-2024 End: 06-27-2024 Refkana eWn MD Work Phone: [facility] Comment on above: Lumbar radiculopathy Start: 05-28-2024 End: 05-28-2024 Refkana Wen MD Work Phone: [facility] Comment on above: Lumbar radiculopathy Start: 05-13-2024 End: 05-13-2024 Bamboo flowsheet Maria Metcalf NP Work Phone: [facility] Start: 05-13-2024 End: 05-13-2024 Bamboo flowsheet Maria Metcalf IMAGE ARCHIVIST Work Phone: [facility] Start: 05-13-2024 End: 05-13-2024 Patient encounter procedure Maria Metcalf NP Work Phone: [facility] Comment on above: Lung nodule, multipl e (Primary Dx); Medicare annual wellness visit, subsequent; Carpal tunnel syndrome, unspecified laterality; Cerebral infarction, unspecified mechanism ([facility]/HCC); Cervical radiculopathy; Chronic fatigue syndrome; Lumbar radiculopathy; Mononeuropathy due to type 2 diabetes mellitus ([facility]); Multiple sclerosis ([facility]); Other chronic pain; RLS (restless legs syndrome); Simple chronic bronchitis ([facility]/HCC); Acute coronary syndrome ([facility]); Atherosclerosis of [place] coronary artery of [place] heart without angina pectoris ([facility]/HCC); Cardiogenic shock ([facility]/HCC); Essential (primary) hypertension ([facility]/HCC); Heart failure with reduced ejection fraction ([facility]/HCC); NSTEMI (non-ST elevated myocardial infarction) ([facility]); Peripheral vascular disorder due to diabetes mellitus ([facility]); Raynaud's phenomenon without gangrene; Biliary calculus of other site without obstruction; Drug-induced constipation; Fatty liver; MISA (stress urinary incontinence, female); Degeneration of intervertebral disc of lumbar region, unspecified whether pain present; Other type of osteoarthritis, unspecified site; Osteopenia, unspecified location; Obesity (BMI 30-39.9); Other primary ovarian failure; Poorly controlled diabetes mellitus (CMS/HCC); Vitamin D deficiency; Anxiety and depression (CMS/HCC); Attention deficit disorder without hyperactivity; Dyslipidemia (CMS/[facility]); Former smoker; History of hysterectomy; Routine adult health maintenance; Moderate major depression, single episode (HCC) (CMS/[facility]); Rheumatoid arthritis involving multiple sites with positive rheumatoid factor (CMS/[facility]); Encounter for other screening for malignant neoplasm of breast; Encounter for screening for osteoporosis; Encounter for osteoporosis screening in asymptomatic postmenopausal patient; Encounter for screening mammogram for malignant neoplasm of breast Start: 05-13-2024 End: 05-13-2024 Patient encounter status Maria Metcalf IMAGE ARCHIVIST Work Phone: [facility] Start: 05-13-2024 End: 05-13-2024 ambulatory MARIA METCALF Not Available Start: 04-30-2024 End: 04-30-2024 ambulatory [facility] Start: 2024 End: 2024 Refkana Wen MD Work Phone: [facility] Comment on above: Lumbar radiculopathy Start: 03-31-2024 End: 03-31-2024 Refkana Wen MD Work Phone: [facility] Comment on above: Lumbar radiculopathy Start: 02-28-2024 End: 02-28-2024 Refkana Wen MD Work Phone: [facility] Comment on above: Lumbar radiculopathy Start: 02-28-2024 End: 02-29-2024 Refkana WAGONER Work Phone: [facility] Comment on above: Attention deficit di sorder without hyperactivity Start: 01-01-2024 End: 01-01-2024 ambulatory ISA DA SILVA Not Available Start: 11-29-2023 End: 12-01-2023 ambulatory [facility] Start: 11-22-2023 End: 11-22-2023 ambulatory LUDWIN Pendleton WEN Not Available Start: 11-08-2023 End: 11-08-2023 ambulatory Ludwin Wen Facility:[facility] Start: 11-08-2023 End: 11-08-2023 ambulatory II Ludwin Wen Work Phone: [facility] Work Phone: Start: 11-08-2023 End: 11-08-2023 Patient encounter procedure II Ludwin Wen Work Phone: [facility] [address] Work Phone: Start: 11-07-2023 End: 12-01-2023 ambulatory DANNIE SANFORD [facility] Start: 11-02-2023 End: 11-02-2023 [facility] Start: 10-24-2023 End: 10-24-2023 ambulatory HOWARD KOLB [facility] Start: 10-11-2023 End: 10-11-2023 ambulatory [facility] Start: 09-24-2023 Telephone encounter Naomie Trimble CMA [facility] Start: 09-20-2023 End: 09-20-2023 ambulatory MARIA METCALF Not Available Start: 09-14-2023 Telephone encounter Jyoti Andrew [facility] Medical Oncology Start: 09-14-2023 End: 09-14-2023 Evaluation and management of inpatient FUAD GREGORIA SAEED [facility] Start: 09-11-2023 End: 09-14-2023 Evaluation and management of inpatient FABIAN AHMED [facility] Start: 09-10-2023 End: 09-14-2023 Evaluation and management of inpatient [facility] Start: 09-10-2023 ambulatory LUDWIN WEN [facility] Start: 09-09-2023 End: 09-14-2023 Evaluation and management of inpatient [facility] Start: 09-09-2023 End: 09-14-2023 Evaluation and management of inpatient SELENE SHORT [facility] Start: 09-09-2023 End: 09-14-2023 Evaluation and management of inpatient [facility] Start: 09-09-2023 End: 09-14-2023 Evaluation and management of inpatient [facility] Start: 09-08-2023 End: 09-14-2023 Evaluation and management of inpatient HA GALVAN [facility] Start: 09-08-2023 End: 09-13-2023 Evaluation and management of inpatient BENNIE MERRITT [facility] Start: 09-07-2023 End: 09-08-2023 Emergency department patient visit Scotty Huggins Facility[facility] Start: 09-07-2023 End: 09-08-2023 Emergency department patient visit Scotty Huggins [facility] Start: 08-15-2023 Bamboo flowsheet Ludwin urbina MD Work Phone: [facility] Start: 08-15-2023 Bamboo flowsheet Ludwin urbina MD Work Phone: [facility] Start: 08-15-2023 End: 08-15-2023 Office outpatient visit 25 minutes Ludwin Wen MD Work Phone: [facility] Comment on above: Type 2 diabetes helen itus without complication, without long- term current use of insulin ([facility]) (Primary Dx); Encounter for screening for malignant neoplasm of colon; Radiculopathy, unspecified spinal region; Acute non-recurrent sinusitis, unspecified location; Tinea corporis; Acute otitis media, unspecified otitis media type Start: 08-15-2023 End: 08-15-2023 ambulatory LUDWIN WEN Not Available Start: 05-21-2023 End: 05-21-2023 ambulatory LUDWIN WEN Not Available Start: 03-27-2023 Chart Update Gaetano price Work Phone: JG-Xghiyvvlhqfbimcs-D [place] [address] [facility] Work Phone: Start: 03-26-[address] Gaetano Torres Facility:[id number] Start: 03-13-2023 End: 03-13-2023 ambulatory Ludwin Wen Facility:[facility] Start: 03-13-2023 End: 03-13-2023 ambulatory II Ludwin Wen Work Phone: [facility] Work Phone: Start: 03-13-2023 End: 03-13-2023 Patient encounter procedure II Ludwin Wen Work Phone: [facility] [address] Work Phone: Start: 12-12-2022 End: 12-12-2022 ambulatory Ludwin Wen Facility:[facility] Start: 11-07-2022 End: 11-07-2022 ambulatory II Ludwin Wen Work Phone: [facility] Work Phone: Start: 11-07-2022 End: 11-07-2022 Patient encounter procedure II Ludwin Wen Work Phone: [facility] [address] Work Phone: Start: 10-20-2022 ambulatory DALIA CERVANTES Faci lity:H1 Start: 09-28-2022 End: 09-29-[address] LUDWIN WEN Facility:H1 Start: 09-05-2022 ambulatory DALIA CERVANTES Faci lity:H1 Start: 09-01-2022 End: 09-02-[address] LUDWIN WEN Facility:H1 Start: 08-25-2022 End: 08-26-[address] LUDWIN WEN Facility:H1 Start: 08-14-2022 End: 08-15-2022 ambulatory DALIA CERVANTES Facility:H1 Start: 08-07-2022 End: 08-08-2022 ambulatory JUANA Martinez Facility:H1 Start: 08-01-2022 End: 08-02-[address] LUDWIN WEN Facility:H1 Start: 07-27-2022 End: 07-28-2022 ambulatory DALIA CERVANTES Facility:H1 Start: 07-25-2022 End: 07-25-2022 ambulatory RITESH MORENO Facility:H1 Start: 07-24-2022 Patient encounter procedure Gaetano Torres Work Phone: NL-Supzduypwvwleuxf-C [place] [address] [facility] Work Phone: Start: 07-24-2022 Phys/qhp telephone evaluation 21-30 min Gaetano Torres Work Phone: RZ-Yxqzeowmvoctszfg-B [place] [address] [facility] Work Phone: Start: 07-24-[address] Gaetano Torres Facility:[id number] Start: 06-21-2022 Patient encounter procedure Referring Provider Unknown RO-Groqiqoclszuhlpk-O [place] [address] [facility] Work Phone: Start: 06-21-2022 ambulatory PCP UNKNOWN Facility:[id number] Start: 05-10-2022 End: 05-10-2022 ambulatory II Ludwin Wen Work Phone: [facility] Work Phone: Start: 05-10-2022 End: 05-10-2022 Patient encounter procedure II Ludwin Wen Work Phone: [facility]-Ultrasound [facility] [place] Start: 04-17-2022 Office outpatient vi sit 15 minutes Referring Provider Unknown BK-Nkpkkynkccvxgazj-J [place] [address] [facility] Work Phone: Start: 04-17-2022 ambulatory JUAN F SAVAGE Facility: [id number] Start: 04-12-2022 End: 04-13-[address] LUDWIN WEN Facility:H1 Start: 03-21-2022 End: 03-22-[address] LUDWIN WEN Facility:H1 Start: 02-27-2022 ambulatory DALIA CERVANTES Faci lity:H1 Start: 01-24-2022 End: 01-25-2022 ambulatory DALIA CERVANTES Facility:H1 Start: 01-13-2022 End: 01-14-2022 ambulatory DALIA CERVANTES Facility:H1 Start: 01-06-2022 End: 01-07-2022 ambulatory DALIA CERVANTES Facility:H1 Start: 12-28-2021 End: 12-30-2021 Evaluation and management of inpatient DALIA CERVANTES Facility:H1 Start: 10-02-2018 Patient encounter procedure PROVIDER UNKNOWN Facility:7 Start: 09-20-2018 Patient encounter procedure PROVIDER UNKNOWN Facility:7 Start: 09-13-2017 End: 09-22-2017 Ambulatory KELLY (ELECTRONIC ORGAN TECHNICIAN) LETY [facility] Start: 08-02-2017 Ambulatory AUGUSTUS (ELECTRONIC ORGAN TECHNICIAN) IVAN [facility] Start: 08-02-2017 End: 08-02-2017 Ambulatory ELENA Michaud LORNA [facility] Start: 07-27-2017 End: 07-27-2017 Ambulatory ELENA Michaud [facility] Start: 07-24-2017 Ambulatory ELENA Michaud [facility] Start: 06-11-2017 End: 06-14-2017 Ambulatory ELENA Michaud [facility] Start: 05-14-2017 End: 05-16-2017 Ambulatory ELENA Michaud [facility] Procedures Date Procedure Procedure Detail Performing Clinician Start: 08-01-2024 ALL CBC WITH AUTO DIFF Generic External Data Provider Start: 05-13-2024 Hemoglobin glycosyla devonte a1c Maria Metcalf IMAGE ARCHIVIST Work Phone: Start: 09-08-2023 Adult depression screening assessment Jyoti Stewart Start: 08-15-2023 Hemoglobin glycosyla devonte a1c Ludwin Wen MD Work Phone: Start: 03-30-2023 Mammography Ludwin chow MD Work Phone: Start: 11-07-2022 H/O: hysterectomy History of hysterectomy Ludwin Wen MD Work Phone: Start: 05-10-2022 Ultrasonography of liver II Ludwin Wen Work Phone: Start: 12-29-2021 Excision of Right Fo ot Subcutaneous Tissue and Fascia, Open Approach DALIA CERVANTES Start: 09-26-2018 Endoscopy - Upper GI Sa sydni Lawrence Biopsy of liver Renae Howard Comment on above: 2010; H/O: hysterectomy History of hysterectomy Maria Metcalf IMAGE ARCHIVIST Work Phone: Hysterectomy Renae Lawrence Operation on bladder Renae T homas Tonsillectomy Renae Howard Plan of Treatment Date Care Activity Detail Author Start: 09-20-2026 Pneumococcal Vaccine : 65+ Years (3 - PPSV23 or PCV20) Pneumococcal Vaccine: 65+ Years (3 - PPSV23 or PCV20) [facility] Start: 09-20-2026 Pneumococcal Vaccine : 65+ Years (3 of 3 - PPSV23 or PCV20) Pneumococcal Vaccine: 65+ Years (3 of 3 - PPSV23 or PCV20) [facility] Start: 09-12-2024 Adult BMI Screening Adult BMI Screen ing [facility] Start: 09-07-2024 Depression Screening Depression Scre ening [facility] Start: 09-07-2024 Tobacco Screening Tobacco Screening [facility] Start: 08-13-2024 Hemoglobin A1c measurement Diabetes: Hemoglobin A1C [facility] Start: 05-13-2024 End: 05-13-2025 CT Chest for screening WO contrast CT lung screening low dose Imaging Routine Medicare annual wellness visit, subsequent Lung nodule, multiple Former smoker Expected: 05/13/2024, Expires: 05/13/2025 [facility] Comment on above: Expected: 05/13/2024 , Expires: 05/13/2025 Start: 05-13-2024 End: 05-13-2025 DXA Skeletal system Views for bone density DEXA bone density Imaging Routine Encounter for screening for osteoporosis Encounter for osteoporosis screening in asymptomatic postmenopausal patient Expected: 05/13/2024, Expires: 05/13/2025 [facility] Comment on above: Expected: 05/13/2024 , Expires: 05/13/2025 Start: 05-13-2024 End: 05-13-2025 Lipid 1996 panel - Serum or Plasma Lipid panel Lab Routine Dyslipidemia ([facility]/HCC) Expected: 05/13/2024 (Approximate), Expires: 05/13/2025 [facility] Work Phone: Comment on above: Expected: 05/13/2024 (Approximate), Expires: 05/13/2025 Start: 05-13-2024 End: 07-13-2025 MG Breast - bilateral Screening Bilateral screening mammogram Imaging Routine Encounter for other screening for malignant neoplasm of breast Encounter for screening mammogram for malignant neoplasm of breast Expected: 05/13/2024, Expires: 07/13/2025 [facility] Comment on above: Expected: 05/13/2024 , Expires: 07/13/2025 Start: 05-09-2024 End: 05-09-2024 Patient encounter procedure 05/09/2024 11:30 AM EST Office Visit [facility] [address] [facility] [address] [place] [address] Ludwin Wen MD [address] [facility] [address] [place] [address] [facility] Start: 05-01-2024 Urine screening for protein Diabetes: Urine Protein Screening [facility] Start: 03-30-2024 Screening for malign ant neoplasm of breast Mammogram [facility] Start: 03-02-2024 Influenza vaccination Influenza Vacc ine (#1) [facility] Start: 02-23-2024 Medicare Annual Well ness (AWV) Medicare Annual Wellness (AWV) [facility] Start: 02-22-2024 Hemoglobin A1c measurement Diabetes: Hemoglobin A1C [facility] Start: 11-29-2023 End: 11-29-2023 Patient encounter procedure 11/29/2023 11:00 AM EDT Office Visit [facility] - Medical Oncology [address] [place] [phone] Dannie Sanford MD [address] [place] [address] [address] [place] [id number] [facility] [facility] - Medical Oncology Start: 11-14-2023 End: 11-14-2023 Patient encounter procedure 11/14/2023 1:00 PM EDT Office Visit [facility] [address] [facility] [address] [place] [address] Ludwin Wen MD [address] [facility] [address] [place] [address] [facility] Start: 11-13-2023 Hemoglobin A1c measurement Diabetes: Hemoglobin A1C [facility] Start: 11-02-2023 End: 11-02-2023 Patient encounter procedure 11/02/2023 2:45 PM EDT Office Visit [facility] [address] [place] [phone] Howard Mahan MD [address] [facility] [place] [id number] Ramona Roldan MD [address] [place] [address] [facility] Start: 09-27-2023 End: 09-27-2023 Patient encounter procedure 09/27/2023 12:15 PM EDT Office Visit [facility] [address] [facility] [address] [place] [address] [facility] Start: 08-15-2023 End: 08-15-2024 Noninvasive colorectal cancer DNA and occult blood screening [Presence] in Stool Cologuard colon cancer screening Lab Routine Encounter for screening for malignant neoplasm of colon Expected: 08/15/2023 (Approximate), Expires: 08/15/2024 [facility] Work Phone: Comment on above: Expected: 08/15/2023 (Approximate), Expires: 08/15/2024 Start: 08-15-2023 End: 08-15-2023 Patient encounter procedure 08/15/2023 1:30 PM EST Office Visit [facility] [address] [facility] [address] [place] [phone] Ludwin Wen MD [address] [facility] [address] [place] [address] Arrived [facility] Comment on above: Arrived Start: 05-25-2023 Hemoglobin A1c measurement Diabetes: Hemoglobin A1C [facility] Start: 2023 Fall Risk Screening Fall Risk Screen ing [facility] Start: 03-02-2023 COVID-19 Vaccine ( season) COVID-19 Vaccine () [facility] Start: 09-29-2022 Glaucoma screening Diabetes: R etinopathy Screening [facility] Start: 07-05-2019 Screening for malign ant neoplasm of colon [facility] Healthcare Start: 2008 Administration of varicella zoster vaccine Zoster (Shingles) Vaccine (1 of 2) [facility] Start: 1977 DTaP,Tdap and Td Vaccines (1 - Tdap) DTaP,Tdap and Td Vaccines (1 - Tdap) [facility] Start: 1976 Adult BMI Follow Up Plan Adult BMI F ollow Up Plan [facility] Start: 1976 Diabetic foot examination Diabetic Foot Exam [facility] Start: 1958 Glaucoma screening Diabetic Op hthalmology Exam [facility] Start: 1958 Medicare Annual Well ness Visit Medicare Annual Wellness Visit [facility] Start: 1958 Screening for malign ant neoplasm of colon [facility] Immunizations Immunization Date Immunization Notes Care Provider Fa cility 04-30-2023 Influenza, High-dose Seasonal, Quadrivalent, Preservative Free Ludwin Wen MD Work Phone: [facility] 04-30-2023 influenza virus vacc ine, unspecified formulation Ludwin Wen MD Work Phone: [facility] 06-15-2022 influenza, injectabl e, quadrivalent, preservative free Referring Provider Unknown [facility] 09-20-2021 pneumococcal polysaccharide vaccine, 23 valent Referring Provider Unknown [facility] 04-04-2021 influenza, injectabl e, quadrivalent, contains preservative Referring Provider Unknown [facility] 12-07-2020 Moderna COVID-19 Vac cine 100 MCG/0.5ML Intramuscular Suspension Referring Provider Unknown -Gastroenterology -[place] [address] Work Phone: 12-06-2020 COVID-19, mRNA, LNP- S, PF, 100mcg/0.5mL Dose Jyoti Stewart [facility] 11-09-2020 Moderna COVID-19 Vac cine 100 MCG/0.5ML Intramuscular Suspension Referring Provider Unknown [facility] [address] [facility] Work Phone: 11-08-2020 COVID-19, mRNA, LNP- S, PF, 100mcg/0.5mL Dose Jyoti Stewart [facility] 05-17-2020 influenza, injectabl e, quadrivalent, preservative free Referring Provider Unknown [facility] 06-02-2019 seasonal influenza, intradermal, preservative free Referring Provider Unknown [facility] 04-29-2018 seasonal influenza, intradermal, preservative free Referring Provider Unknown [facility] 06-06-2017 seasonal influenza, intradermal, preservative free Referring Provider Unknown [facility] 09-08-2015 pneumococcal conjuga te vaccine, 13 valent Referring Provider Unknown [facility] 06-01-2015 pneumococcal conjuga te vaccine, 13 valent Referring Provider Unknown [facility] 03-11-2015 seasonal influenza, intradermal, preservative free Ludwin Wen MD Work Phone: [facility] 05-04-2014 influenza, seasonal, injectable Ludwin Wen MD Work Phone: [facility] 06-20-2010 seasonal influenza, intradermal, preservative free Ludwin Wen MD Work Phone: [facility] 09-14-2009 pneumococcal polysaccharide vaccine, 23 valent Ludwin Wen MD Work Phone: [facility] Payers Date Payer Category Payer Medicaid [employer] MED[employer] A DVANTAGE [id number] 2023 Medicare [id number] 2023 Private Health Insurance [id number] 2022 Self-pay [id number] 1961 Medicaid [id number] 1959 Unknown [id number] 1958 Unknown [id number] 2.16.840.1.813586.3.579.2. 355 1958 Unknown [id number] 2.16.840.1.215297.3.579.2. 355 1958 Unknown [id number] 2.16.840.1.285774.3.579.2. 593 1958 Unknown [id number] 2.16.840.1.124252.3.579.2. 593 1958 Unknown [id number] 2.16.840.1.772733.3.579.2. 593 1958 Unknown [id number] 2.16.840.1.850357.3.579.2. 593 1958 Unknown [id number] 2.16.840.1.492592.3.579.2. 593 1958 Unknown [id number] 2.16.840.1.186805.3.579.2. 593 1958 Unknown [id number] 2.16.840.1.590208.3.579.2. 593 1958 Unknown [id number] 2.16.840.1.052992.3.579.2. 593 1958 Unknown [id number] 2.16.840.1.292276.3.579.2. 593 1958 Unknown [id number] 2.16.840.1.543443.3.579.2. 593 1958 Unknown [id number] 2.16.840.1.812395.3.579.2. 593 1958 Unknown [id number] 2.16.840.1.811054.3.579.2. 593 1958 Unknown [id number] 2.16.840.1.844672.3.579.2. 593 1958 Unknown [id number] 2.16.840.1.105490.3.579.2. 593 1958 Unknown [id number] 2.16.840.1.489053.3.579.2. 593 1958 Unknown [id number] 2.16.840.1.334428.3.579.2. 593 1958 Unknown [id number] 2.16.840.1.991450.3.579.2. 593 1958 Unknown [id number] 2.16.840.1.069330.3.579.2. 593 1958 Unknown [id number] 2.16.840.1.450137.3.579.2. 1068 1958 Unknown [id number] 2.16.840.1.054967.3.579.2. 1068 1958 Unknown [id number] 2.16.840.1.104136.3.579.2. 356 1960 Unknown [id number] 2.16.840.1.012878.3.579.2. 356 1960 Unknown [id number] 2.16.840.1.030333.3.579.2. 727 1960 Unknown [id number] 2.16.840.1.204768.3.579.2. 1286 1958 Unknown [id number] 2.16.840.1.597054.3.579.2. 1286 1958 Unknown [id number] 2.16.840.1.142654.3.579.2. 1286 1958 Unknown [id number] 2.16.840.1.930007.3.579.2. 1286 1958 Unknown [id number] 2.16.840.1.140776.3.579.2. 1285 1958 Unknown [id number] 2.16.840.1.852416.3.579.2. 1285 1958 Unknown [id number] 2.16.840.1.000534.3.579.2. 1285 1958 Unknown [id number] 2.16.840.1.011684.3.579.2. 1285 1958 Unknown [id number] 2.16.840.1.041407.3.579.2. 1285 1958 Unknown [id number] 2.16.840.1.229930.3.579.2. 1285 1958 Unknown [id number] 2.16.840.1.934792.3.579.2. 1285 1958 Unknown [id number] 2.16.840.1.647316.3.579.2. 1285 1958 Unknown [id number] 2.16.840.1.834464.3.579.2. 1285 1958 Unknown [id number] 2.16.840.1.282785.3.579.2. 1285 1958 Unknown [id number] 2.16.840.1.487548.3.579.2. 1285 1958 Unknown [id number] 2.16.840.1.025952.3.579.2. 1285 1958 Unknown [id number] 2.16.840.1.965698.3.579.2. 1285 1958 Unknown [id number] 2.16.840.1.436756.3.579.2. 1285 1958 Unknown [id number] 2.16.840.1.909680.3.579.2. 1285 1958 Unknown [id number] 2.16.840.1.335980.3.579.2. 1286 1958 Unknown [id number] 2.16.840.1.964758.3.579.2. 1286 1958 Unknown [id number] 2.16.840.1.098004.3.579.2. 1259 1958 Unknown [id number] 2.16.840.1.209733.3.579.2. 1259 1958 Unknown [id number] 2.16.840.1.704221.3.579.2. 1259 1958 Unknown [id number] 2.16.840.1.820589.3.579.2. 1259 1958 Unknown [id number] 2.16.840.1.535705.3.579.2. 1259 1958 Unknown [id number] 2.16.840.1.352137.3.579.2. 1259 Medicare Medicare [id number] Medicare Medicare [id number] Unknown Unknown [id number] 2.16.840.1.888689.3.579.2. 531 Unknown [id number] 2.16840.1.887687.3.579.2. 531 Unknown [id number] 2.16840.1.440572.3.579.2. 531 Social History Date Type Detail Facility Start: 02-22-2023 End: 05-10-2023 [facility] [facility] Work Phone: Start: 1960 Sex Assigned At Female F [facility] Start: 02-22-2023 End: 09-08-2023 Tobacco smoking status ORIS Ex-smoker [facility] [place] Start: 07-02-1969 End: 07-02-2015 History of tobacco use Current smoker [facility] Start: 07-02-1969 End: 07-02-2015 History of tobacco use Cigarette Smoker [facility] Start: 02-22-2023 End: 07-02-2014 Tobacco use and exposure User of smokeless tobacco [facility] Start: 05-21-2023 End: 01-01-2024 Alcohol intake Lifetime non-drinker (finding) [facility] Start: 05-10-2023 End: 05-13-2024 Humiliation, Afraid, Rape, and Kick questionnaire [HARK] [facility] Within the last year , have you been afraid of your partner or ex-partner? No [facility] Sexually Abused Not on file [facility] are Are you now , , , , never or living with a partner? [facility] How often to you hav e a drink containing alcohol? Never [facility] Do you feel stress - tense, restless, nervous, or anxious, or unable to sleep at night because your mind is troubled all the time - these days [OSQ] Not at all [facility] (I/We) worried wheth er (my/our) food would run out before (I/we) got money to buy more. Never true [facility] Start: 11-20-2022 Tobacco Comment Stopped smokin g 2014 [facility] Start: 11-03-2022 Alcohol Comment Coffee, Chocol ate 1-2cups/day [facility] Start: 1960 Sex Assigned At Not on file [facility] Tobacco smoking status No Smokin g Status Entered [facility] Start: 09-08-2023 Tobacco use and exposure Smoke less tobacco non-user [facility] Start: 09-10-2023 Alcohol intake [facility] Has the [employer], [employer], or [id number] threatened to shut off services in your home in past 12Mo Yes [facility] [employer] [facility] NEGATED: Highlighted row - - [facility] [place] Work Phone: Medical Equipment Procedure Code Equipment Code Equipment Original Text Equi pment Identifier Dates 1 each by Other route in the morning and 1 each before bedtime. [id number] Goals Date Patient Goal Desired Activity /State Personal health goal Comment on above: Formatting of this n ote might be different from the original. Evaluation of progress towards goal: self care, family support Functional Status Date Assessment Result Facility 09-07-2023 Functional Status N/A [facility] NEGATED: Highlighted row Functional performance Functional status health issues are not documented Disease [facility] Work Phone: Mental Status Date Assessment Result Facility NEGATED: Highlighted row Cognitive function [Interpretation] Cognitive status health issues are not documented Disease [facility] Work Phone: Clinical Notes 12-28-2021 to 07-29-2024 Telephone Encounter - RIZWANA Rascon - 07/29/2024 12:59 PM ESTTelephone Encounter - RIZWANA Rascon - 07/29/2024 12:59 PM ESTTelephone Encounter - Yessica Paris - 07/29/2024 11:08 AM EST Note Date & Type Note Facility 07-29-2024 Telephone encounter Note OARRS reviewed, Rx sent into patient's pharmacy. [facility] 07-29-2024 Miscellaneous Notes OARRS reviewed, Rx sent into patient's pharmacy. fentaNYL (DURAGESIC) 12 MCG[facility] documented in this encounter [facility] 07-29-2024 Telephone encounter Note fentaNYL (DURAGESIC) 12 MCG[facility] 06-27-2024 Telephone encounter Note Pt agrees to trying the patch[facility] 06-27-2024 Miscellaneous Notes Pt agrees to trying the patch[facility] Fentanyl patch seems to be the only alternative that insurance will cover. Does she want to switch? Pt states that none of the pharmacies in the area are able to get the morphine CR (MS Contin) 15 MG 12 hr tablet. She'd like to know what other options she has for her pain. She doesn't want to go up to the 30mg if possible. She only has 1.5 days left documented in this encounter [facility] 06-27-2024 Telephone encounter Note Fentanyl patch seems to be the only alternative that insurance will cover. Does she want to switch? [facility] 06-26-2024 Telephone encounter Note Pt states that none of the pharmacies in the area are able to get the morphine CR (MS Contin) 15 MG 12 hr tablet. She'd like to know what other options she has for her pain. She doesn't want to go up to the 30mg if possible. She only has 1.5 days left [facility] 06-26-2024 Telephone encounter Note morphine CR (MS Contin) 15 MG 12 hr tablet [facility] 06-26-2024 Miscellaneous Notes morphine CR (MS Contin) 15 MG 12 hr tablet [facility] documented in this encounter [facility] 05-28-2024 Telephone encounter Note OARRS reviewed, Rx sent into patient's pharmacy. [facility] 05-28-2024 Miscellaneous Notes [facility]AR[facility] reviewed, Rx sent into patient's pharmacy. morphine CR (MS Contin) 15 MG 12 hr tablet to [facility] documented in this encounter [facility] 05-28-2024 Telephone encounter Note morphine CR (MS Contin) 15 MG 12 hr tablet to [facility] 05-13-2024 History of Presen t illness Narrative Images from the original note were not included. Subjective Patient ID: Soumya Abdi is a 64 y.o. female who presents for Med Refill (Furosemide, Vitamin D). Here for Medicare Wellness. Med Refill This is a chronic problem. The current episode started more than 1 year ago. The problem has been unchanged. Associated symptoms include abdominal pain, arthralgias, coughing, headaches, myalgias, nausea, neck pain and weakness. Nothing aggravates the symptoms. She has tried nothing for the symptoms. Review of Systems Constitutional: Appetite has been poor for awhile HENT: Positive for ear pain and sinus pressure. Respiratory: Positive for cough. Cardiovascular: Negative. Gastrointestinal: Positive for abdominal distention, abdominal pain and nausea. Genitourinary: Positive for frequency. Musculoskeletal: Positive for arthralgias, back pain, myalgias, neck pain and neck stiffness. Skin: Open area to left side of face near mouth and on the cheek. Scattered area on arms. She reports that it is related to her liver Neurological: Positive for weakness and headaches. Psychiatric/Behavioral: Positive for agitation, dysphoric mood and sleep disturbance. The patient is nervous/anxious. Objective Physical Exam Vitals reviewed. Constitutional: Appearance: She is obese. HENT: Head: Normocephalic. Right Ear: Tympanic membrane normal. Left Ear: Tympanic membrane normal. Nose: Congestion present. Mouth/Throat: Mouth: Mucous membranes are moist. Eyes: Extraocular Movements: Extraocular movements intact. Conjunctiva/sclera: Conjunctivae normal. Pupils: Pupils are equal, round, and reactive to light. Cardiovascular: Rate and Rhythm: Normal rate. Rhythm irregular. Pulses: Normal pulses. Heart sounds: Normal heart sounds. Comments: Atrial fibrillation Pulmonary: Effort: Pulmonary effort is normal. Breath sounds: Normal breath sounds. Abdominal: General: Bowel sounds are normal. Palpations: Abdomen is soft. Musculoskeletal: General: Deformity present. Comments: + bilateral carpal tunnel and raynaud's disease Skin: General: Skin is warm and dry. Findings: Lesion present. Comments: Multiple lesions on skin in varying healing stages. Neurological: General: No focal deficit present. Mental Status: She is alert and oriented to person, place, and time. Motor: Weakness present. Psychiatric: Mood and Affect: Mood normal. Behavior: Behavior normal. Assessment/Plan Diagnoses and all orders for this visit: Medicare annual wellness visit, subsequent - CT lung screening low dose; Future Reviewed all relevant preventative screenings with the patient in detail. Medicare Wellness form completed and will be scanned into patient's chart. All needed testing was ordered. Will continue with yearly Medicare Wellness exams. Carpal tunnel syndrome, unspecified laterality This is a chronic medical condition that is stable since last assessment. No changes in treatment are suggested at this time. Cerebral infarction, unspecified mechanism (CMS/HCC) This is a chronic medical condition that is stable since last assessment. No changes in treatment are suggested at this time. Cervical radiculopathy This is a chronic medical condition that is stable since last assessment. No changes in treatment are suggested at this time. Chronic fatigue syndrome This is a chronic medical condition that is stable since last assessment. No changes in treatment are suggested at this time. Lumbar radiculopathy This is a chronic medical condition that is stable since last assessment. No changes in treatment are suggested at this time. Mononeuropathy due to type 2 diabetes mellitus ([facility]/HCC) This is a chronic medical condition that is stable since last assessment. No changes in treatment are suggested at this time. Multiple sclerosis ([facility]/HCC) This is a chronic medical condition that is stable since last assessment. No changes in treatment are suggested at this time. Other chronic pain This is a chronic medical condition that is stable since last assessment. No changes in treatment are suggested at this time. RLS (restless legs syndrome) This is a chronic medical condition that is stable since last assessment. No changes in treatment are suggested at this time. Simple chronic bronchitis ([facility]) Lung nodule, multiple - CT lung screening low dose; Future Has seen by Dr. Berg in the past. Low dose CT ordered Await CT Acute coronary syndrome ([facility]) Managed by cardiology in [place] Atherosclerosis of [place] coronary artery of [place] heart without angina pectoris ([facility]) Managed by cardiology in [place] Cardiogenic shock ([facility]) Managed by cardiology in [place] Essential (primary) hypertension ([facility]) Managed by cardiology in [place] Heart failure with reduced ejection fraction ([facility] - furosemide (Lasix) 20 MG tablet; Take 1 tablet (20 mg) by mouth Daily Managed by cardiology in [place] NSTEMI (non-ST elevated myocardial infarction) ([facility] Managed by cardiology in [place] Peripheral vascular disorder due to diabetes mellitus ([facility]) This is a chronic medical condition that is stable since last assessment. No changes in treatment are suggested at this time. Raynaud's phenomenon without gangrene This is a chronic medical condition that is stable since last assessment. No changes in treatment are suggested at this time. Biliary calculus of other site without obstruction This is a chronic medical condition that is stable since last assessment. No changes in treatment are suggested at this time. Drug-induced constipation Drink plenty of fluids, enough so that your urine is light yellow or clear like water. At least 1/2 body weight in water each day. Include high-fiber foods in your diet each day. These include fruits, vegetables, beans, and whole grains. Get at least 30 minutes of exercise on most days of the week. Take a fiber supplement, such as Citrucel or Metamucil, every day. Probiotics recommended also. Schedule time each day for a bowel movement. A daily routine may help. Take your time having your bowel movement. Fatty liver Followed by GI MISA (stress urinary incontinence, female) This is a chronic medical condition that is stable since last assessment. No changes in treatment are suggested at this time. Degeneration of intervertebral disc of lumbar region, unspecified whether pain present This is a chronic medical condition that is stable since last assessment. No changes in treatment are suggested at this time. Other type of osteoarthritis, unspecified site This is a chronic medical condition that is stable since last assessment. No changes in treatment are suggested at this time. Osteopenia, unspecified location This is a chronic medical condition that is stable since last assessment. No changes in treatment are suggested at this time. Obesity (BMI 30-39.9) Discussed goal of BMI < 30. Advised on weight loss options. Encouraged diet and exercise. Discussed with patient appropriate lifestyle modification changes necessary for weight management, heart healthy eating and overall health promotion. Discussed minimizing high carb, high sugar, high sodium, portion control, and processed foods while making healthy choice replacements. Additionally discussed recommendations of 30 minutes of aerobic exercise at least 5 days per week, that includes, walking, and chair exercises. . Instructed importance of drinking adequate water consumption (if not on fluid restriction) with minimal sugar and caffiene. Other primary ovarian failure Await dexa Poorly controlled diabetes mellitus (CMS/HCC) We discussed today, the importance of proper diabetic control. We discussed possible complications of diabetes, including loss of vision, renal failure, increased risk of heart attacks and strokes, blood vessel and/or nerve damage. We discussed the recommended changes to reduce your blood sugars and minimize the risk of these complications. We discussed diabetic goals, including keeping A1C <7.0% and blood pressure < 130/70. The plan for achieving these goals is adherence to medications, diet, and regular activity as discussed during today's visit. We discussed current barriers to achieving these goals. We discussed dietary goals. We discussed calorie counting, as well as decreasing carbohydrate and simple sugar intake. Reviewed portion control with the patient. If the patient still has questions on this, a referral to a Dietitian can be arranged. I reviewed medications that aid in diabetic control. We discussed proper dosing and educated the patient on possible side effects and complications. The patient verbalized understanding of these instructions. Vitamin D deficiency - cholecalciferol (Vitamin D-3) 25 MCG (1000 UT) capsule; Take 1 capsule (25 mcg) by mouth Daily\ Await lab Anxiety and depression (CMS/HCC) Medication as directed. Counseling recommended. Verbalizes understanding of the need to be seen in the ER for suicidal/homicidal ideation, excessive stress, elevated blood pressure or palpitations. Pt offers understanding of treatment plan. I discussed the side effects of the medications described and to seek medical care if they arise. Discussed stress mgmt strategies, social support and importance of healthy diet, exercise and regular sleep habits. Advised on relaxation methods to decrease anxiety and depression. Attention deficit disorder without hyperactivity This is a chronic medical condition that is stable since last assessment. No changes in treatment are suggested at this time. Dyslipidemia (CMS/HCC) - Lipid panel; Future Await lab Former smoker - CT lung screening low dose; Future Await results History of hysterectomy This is a chronic medical condition that is stable since last assessment. No changes in treatment are suggested at this time. Routine adult health maintenance This is a chronic medical condition that is stable since last assessment. No changes in treatment are suggested at this time. Moderate major depression, single episode (HCC) (CMS/HCC) Medication as directed. Counseling recommended. Verbalizes understanding of the need to be seen in the ER for suicidal/homicidal ideation, excessive stress, elevated blood pressure or palpitations. Pt offers understanding of treatment plan. I discussed the side effects of the medications described and to seek medical care if they arise. Discussed stress mgmt strategies, social support and importance of healthy diet, exercise and regular sleep habits. Advised on relaxation methods to decrease anxiety and depression. Rheumatoid arthritis involving multiple sites with positive rheumatoid factor (CMS/HCC) This is a chronic medical condition that is stable since last assessment. No changes in treatment are suggested at this time. documented in this encounter [facility] 04-30-2024 Note Attestation signed by Howard Kolb MD at 04/30/2024 9:23 PM Seen and discussed with fellow, agree with assessment and plan. [facility] Gastroenterology New Patient Visit - History & Physical CHIEF COMPLAINT Chief Complaint Patient presents with Follow-up HISTORY OF PRESENT ILLNESS: Soumya Abdi is a 64 y.o. female with PMHX of HTN, HLD, DM, CAD, MS (previously on methotrexate), who presents for hospital follow up. Patient initially admitted to [facility] in August 2023 for RUQ abdominal pain. Initial labs at the external facility revealed, hemoglobin of 17.2, and bilirubin of 1.8. High sensitivity troponin was elevated at 64. A CT angiography showed a defect in the bile duct, while MRCP revealed an 8x5 mm stone in the distal common bile duct. An EKG showed lateral ST depressions. The patient received Dilaudid at the external facility, which caused her oxygen saturation to drop to 88%, necessitating supplemental oxygen. Consequently, she was transferred to [facility] for ERCP with stenting. At that time, choledocholithiasis was suspected' however ERCP was negative for any biliary obstruction/pus. She also had evidence of duodenal ulcers and LA Grade C esophagitis. She was recommended to have repeat EGD in 8 weeks. Her elevation and ductal dilation is likely secondary to periampullary diverticulum and underlying cirrhosis. Cirrhosis was suspected to be from methotrexate vs. CARRASCO. Patient underwent serologic workup, including negative MICHAEL, AMA, TTG, ASMA, IGG, Hep B and Hep C, A!AT, Iron studies. Interval History 04/30/24 Patient admits to continued bouts of nausea, usually in the morning upon waking, relieved by eating and drinking milk. This is associated with heartburn and regurgitation. She does endorse one episode of vomiting with coffee ground appearance last week, denies melena or hematochezia. She had prior EGD/ERCP in August that showed LA Grade C esophagitis and duodenal ulcers, she is out of PPI for the last two weeks. Does note that PPI helps all of the above symptoms. Denies scleral icterus, jaundice, abdominal distension, lower extremity edema. She does endorse some brain fogginess and sleep-wake disturbance. PREVIOUS LABS/IMAGING/ENDOSCOPY: Liver US 09/08/2023: Cirrhotic hepatic morphology appropriately directed flow within the main portal vein. - AFP 09/11/2023: 2.4 ng/ml -- normal - ERCP 09/09/2023 showed LA grade C reflux esophagitis with no bleeding and no esophageal varices, normal stomach with no gastric varices, many non-bleeding superficial duodenal ulcers with pigmented material, prominent common bile duct with no clear evidence of CBD stone seen. A biliary sphincterectomy was performed and the biliary tree was swept and nothing was found. Gastric biopsy was performed and it later showed chronic gastritis with negative H pylori. HISTORY: Problem list: There is no problem list on file for this patient. Past Medical History: History reviewed. No pertinent past medical history. Past Surgical History: History reviewed. No pertinent surgical history. FAMILY HISTORY: No family history on file. SOCIAL HISTORY: Social History Tobacco Use Smoking status: Former Types: Cigarettes Quit date: 2018 Years since quittin.8 Smokeless tobacco: Never Vaping Use Vaping Use: Some days Substances: Nicotine Substance Use Topics Alcohol use: Not Currently Drug use: Yes Types: Marijuana ALLERGIES: Adalimumab, Enbrel [etanercept], Antivert [meclizine], Bupropion, Celexa [citalopram], Lopressor [metoprolol tartrate], Zofran [ondansetron hcl], and Levofloxacin Current Medications: Current Outpatient Medications: albuterol (ProAir HFA) 90 mcg/actuation inhaler, Inhale 1 puff as needed by inhalation route for 17 days., Disp: , Rfl: aspirin 81 mg EC tablet, Take 81 mg by mouth in the morning., Disp: , Rfl: atorvastatin (Lipitor) 40 mg tablet, Take 40 mg by mouth in the morning., Disp: , Rfl: brexpiprazole (Rexulti) 2 mg tablet, Take 2 mg by mouth in the morning., Disp: , Rfl: carvedilol (Coreg) 6.25 mg tablet, TAKE 1 TABLET WITH FOOD ORALLY TWICE A DAY 100 DAYS, Disp: , Rfl: docusate sodium (Colace) 50 mg capsule, Take 100 mg by mouth in the morning., Disp: , Rfl: fluconazole (Diflucan) 100 mg tablet, , Disp: , Rfl: FLUoxetine (PROzac) 40 mg capsule, Take 40 mg by mouth in the morning., Disp: , Rfl: fluticasone (Flonase) 50 mcg/actuation nasal spray, , Disp: , Rfl: fluticasone propion-salmeteroL (Advair Diskus) 250-50 mcg/dose diskus inhaler, Inhale 1 puff twice a day by inhalation route for 30 days., Disp: , Rfl: furosemide (Lasix) 20 mg tablet, Use 1 tablet in the mouth or throat 1 (one) time each day., Disp: , Rfl: leflunomide (Arava) 20 mg tablet, Take 20 mg (more content not included)... [facility] 04-30-2024 Note Get blood work and u ltrasound scheduled Please schedule an EGD for evaluation of your esophagus, call [phone]. Refills for Pantoprazole were sent to your pharmacy. We will start Lactulose for your confusion and fogginess. Take 1-3 times daily, target 2-3 soft bowel movements (not diarrhea) a day Follow up in 6 months. [facility] 2024 Telephone encounter Note morphine CR (MS Contin) 15 MG 12 hr tablet to [facility] 2024 Miscellaneous Notes morphine CR (MS Contin) 15 MG 12 hr tablet [facility] documented in this encounter [facility] 03-31-2024 Telephone encounter Note morphine CR (MS Contin) 15 MG 12 hr tablet [facility] 03-31-2024 Miscellaneous Notes morphine CR (MS Contin) 15 MG 12 hr tablet [facility] documented in this encounter [facility] 02-29-2024 Telephone encounter Note OARRS reviewed, Rx sent into patient's pharmacy. [facility] 02-29-2024 Miscellaneous Notes OARRS reviewed, Rx sent into patient's pharmacy. documented in this encounter [facility] 02-28-2024 Telephone encounter Note morphine CR (MS Contin) 15 MG 12 hr tablet [facility] 02-28-2024 Miscellaneous Notes morphine CR (MS Contin) 15 MG 12 hr tablet [facility] documented in this encounter [facility] 10-24-2023 Note Attestation signed by Howard Kolb MD at 10/24/2023 3:41 PM Seen and discussed with resident, agree with assessment and plan. [facility] Gastroenterology New Patient Visit - History & Physical CHIEF COMPLAINT Chief Complaint Patient presents with Hospital Follow-up HISTORY OF PRESENT ILLNESS: Soumya Abdi is a 63 y.o. female patient with liver cirrhosis, hypertension, hyperlipidemia, diabetes mellitus, coronary artery disease, and multiple sclerosis. She presents today for follow up after hospital discharge. She was hospitalized at [facility] 09/08/23-09/13/23. Her initial presentation was with vomiting, RUQ abdominal pain and lower back pain. CT AP showed evidence of cirrhotic liver, Intrahepatic and extrahepatic biliary prominence as well as slight prominence of pancreatic duct without pancreatitis, some inflammatory changes in the right upper quadrant with thickening of the duodenum. ERCP on 09/09/2023 showed LA grade C reflux esophagitis with no bleeding and no esophageal varices, normal stomach with no gastric varices, many non-bleeding superficial duodenal ulcers with pigmented material, prominent common bile duct with no clear evidence of CBD stone seen. A biliary sphincterectomy was performed and the biliary tree was swept and nothing was found. Gastric biopsy was performed and it later showed chronic gastritis with negative H pylori. She then underwent laparoscopic cholecystectomy on 09/09/2023. She was planned to be discharged on Protonix 40 mg BID for 8 weeks, but she only had 7 or 10 day supply on discharge which she took, but then ran out and never had the prescription refilled. She states that the RUQ abdominal pain has resolved. She has had LUQ abdominal pain after discharge that was triggered by coughing and certain movements but this seems to be resolved too. She continues to have nausea, but denied any vomiting or hematemesis. She also denied yellowing of eyes or skin, increased abdominal circumference, leg swelling, tremor, new or worsening sleep issues or memory issues. She had workup for liver cirrhosis including viral hepatitis, MICHAEL, ceruloplasmin, alpha-1 antitrypsin and iron panel which all came back negative. The most likely etiology for her liver cirrhosis is believed to be CARRASCO. The abdomen imaging performed in the hospital including the CT and US were negative for any liver mass. She had AFP done on 09/11/2023 and was normal. PREVIOUS LABS/IMAGING/ENDOSCOPY: - Liver US 09/08/2023: Cirrhotic hepatic morphology appropriately directed flow within the main portal vein. - AFP 09/11/2023: 2.4 ng/ml -- normal - ERCP 09/09/2023 showed LA grade C reflux esophagitis with no bleeding and no esophageal varices, normal stomach with no gastric varices, many non-bleeding superficial duodenal ulcers with pigmented material, prominent common bile duct with no clear evidence of CBD stone seen. A biliary sphincterectomy was performed and the biliary tree was swept and nothing was found. Gastric biopsy was performed and it later showed chronic gastritis with negative H pylori. HISTORY: Problem list: There is no problem list on file for this patient. Past Medical History: No past medical history on file. Past Surgical History: No past surgical history on file. FAMILY HISTORY: No family history on file. SOCIAL HISTORY: ALLERGIES: Adalimumab, Enbrel [etanercept], Antivert [meclizine], Bupropion, Celexa [citalopram], Lopressor [metoprolol tartrate], Zofran [ondansetron hcl], and Levofloxacin Current Medications: Current Outpatient Medications: aspirin 81 mg EC tablet, Take 81 mg by mouth in the morning., Disp: , Rfl: atorvastatin (Lipitor) 40 mg tablet, Take 40 mg by mouth in the morning., Disp: , Rfl: brexpiprazole (Rexulti) 2 mg tablet, Take 2 mg by mouth in the morning., Disp: , Rfl: fluticasone (Flonase) 50 mcg/actuation nasal spray, , Disp: , Rfl: furosemide (Lasix) 20 mg tablet, Use 1 tablet in the mouth or throat 1 (one) time each day., Disp: , Rfl: lisinopril 20 mg tablet, Take 20 mg by mouth in the morning., Disp: , Rfl: potassium chloride ER (Micro-K) 10 mEq ER capsule, Take 1 capsule every day by oral route for 30 days., Disp: , Rfl: SITagliptin phosphate (Januvia) 100 mg tablet, Take 100 mg by mouth in the morning., Disp: , Rfl: albuterol (ProAir HFA) 90 mcg/actuation inhaler, Inhale 1 puff as needed by inhalation route for 17 days., Disp: , Rfl: carvedilol (Coreg) 6.25 mg tablet, TAKE 1 TABLET WITH FOOD ORALLY TWICE A DAY 100 DAYS, Disp: , Rfl: docusate sodium (Colace) 50 mg capsule, Take 100 mg by mouth in the morning., Disp: , Rfl: fluconazole (Diflucan) 100 mg tablet, , Disp: , Rfl: FLUoxetine (PROzac) 40 mg capsule, Take 40 mg by mouth in the morning., Disp: , Rfl: fluticasone (more content not included)... [facility] 09-24-2023 Miscellaneous Notes Left message for patient to remind them to bring their most current medication list with them to their appointment. documented in this encounter [facility] 09-24-2023 Telephone encounter Note Left message for patient to remind them to bring their most current medication list with them to their appointment. [facility] 09-14-2023 Miscellaneous Notes 09/13 LEFT A VM TO CALL BACK TO SCHEDULE CONSULT WITH DR. SANFORD documented in this encounter [facility] 09-14-2023 Telephone encounter Note 09/13 LEFT A VM TO CALL BACK TO SCHEDULE CONSULT WITH DR. SANFORD [facility] 09-08-2023 Note Patient updated on p vesta of care, states her pain is controlled aware she will be transported via ambulance to [facility] - verbalizes understanding. [facility] 09-07-2023 Evaluation + Plan note Extrac devonte from: Title:ED Note Author:Chad Ying PA-C te:09/07/23 1. Elevated troponin (R79.89 : Other specified abnormal findings of blood chemistry) 2. Back pain (M54.9: Dorsalgia, unspecified) 3. Hypertension (I10: Essential (primary) hypertension) Orders: lorazepam, 1 mg = 0.5 mL, Injection, IV Push, Once, Stop date 09/07/23 15:15:00 EST, STAT, Start date 09/07/23 15:15:00 EST, 09/07/23 15:15:00 EST morphine, 4 mg = 1 mL, Injection, IV Push, Once, Stop date 09/07/23 14:28:00 EST, STAT, Start date 09/07/23 14:28:00 EST, 09/07/23 14:28:00 EST ondansetron, 4 mg = 2 mL, Injection, IV Push, Once, Stop date 09/07/23 14:29:00 EST, STAT, Start date 09/07/23 14:29:00 EST, 09/07/23 14:29:00 EST Sodium Chloride 0.9% intravenous solution 1,000 mL, 1,000 mL, IV, 20 mL/hr, STAT, Start date 09/07/23 14:01:00 EST, 50 hour(s), Total volume (mL): 1,000 Sodium Chloride 0.9% intravenous solution 1,000 mL, 1,000 mL, IV, Bolus, STAT, Start date 09/07/23 17:03:00 EST, Total volume (mL): 1,000, 84.7 kg, 1.99, m2 Basic Metabolic Panel BB Draw & Hold Beta-hydroxybutyrate Blood Gas Rick CBC w/ Auto Diff CT Head or Brain w/o Contrast CTA Abdomen and Pelvis CTA Chest ECG 12 Lead Adult eGFR Extra SST Tube Hepatic Function Panel Lipase Level MRI Cholangiogram Pancreatography (mrcp) PT & PTT Troponin 0 Hr. Troponin 3 Hr. Troponin 6 Hr. Troponin 9 Hr. UA With Cult Reflex [facility]02-14-2024 History of Present illness Narrative* Ludwin Wen MD - 08/15/2023 1:30 PM EST HPI New Med Request Additional comments: Pt requesting rx for diflucan cream to use in skin folds Pt would also like to discuss decreasing dose of morphine Last edited by Edna Whitmore LPN on 08/15/2023 1:27 PM. Subjective Patient ID: Soumya Abdi is a 63 y.o. female who presents for Diabetes, Earache, and New Med Request (Pt requesting rx for diflucan cream to use in skin folds//Pt would also like to discuss decreasing dose of morphine). Diabetes Mellitus Patient presents for follow up of diabetes. Current symptoms include: none. Patient denies foot ulcerations, hypoglycemia , polydipsia, polyuria, visual disturbances, and vomiting. Evaluation to datehas included: fasting blood sugar, fasting lipid panel, and hemoglobin A1C. Home sugars: BGs range between 100 and 120. Soumya Abdi is a 63 y.o. female who presents with right ear pain. - Symptoms began 1 week. - Symptoms are associated with rhinorrhea and postnasal drainage. Diabetes Pertinent negatives for diabetes include no chest pain and no fatigue. Current Outpatient Medications on File Prior to Visit Medication Sig Dispense Refill albuterol HFA (ProAir HFA) 90 mcg/act inhaler Inhale 2 puffs every 4 (four) hours if needed. aspirin 81 MG EC tablet Take 81 mg by mouth in the morning. atorvastatin (Lipitor) 40 MG tablet Take 40 mg by mouth at bedtime. Brexpiprazole (Rexulti) 2 MG tablet Take 2 mg by mouth in the morning. 30 tablet 11 carvedilol (Coreg) 6.25 MG tablet Take 6.25 mg by mouth in the morning and 6.25 mg in the evening. Take with meals. docusate sodium ([facility] Stool Softener) 100 MG capsule Take 1 capsule (100 mg) by mouth in the morning. 100 capsule 3 ergocalciferol (Vitamin D-2) 1.25 MG (14301 UT) capsule Take by mouth 1 (one) time per week. FLUoxetine (PROzac) 40 MG capsule Take 1 capsule (40 mg) by mouth in the morning. 30 capsule 5 fluticasone (Flonase) 50 MCG/ACT nasal spray Administer 2 sprays into each nostril in the morning. furosemide (Lasix) 20 MG tablet Take 20 mg by mouth in the morning. glucose blood ([employer] Ultra) test strip 1 each by Other route in the morning and 1 each before bedtime. leflunomide (Arava) 20 MG tablet Take 20 mg by mouth in the morning. modafinil (Provigil) 200 MG tablet Take 1 tablet (200 mg) by mouth in the morning. 30 tablet 3 potassium chloride ER (Micro-K) 10 MEQ ER capsule Take 10 mEq by mouth in the morning. riTUXimab (RITUXAN IV) every 6 (six) months. WITH RHEUMATOLOGY senna-docusate (Lidia-Colace) 8.6-50 MG tablet Take 1 tablet by mouth 2 (two) times a day as needed for constipation. SITagliptin (Januvia) 100 MG tablet Take 100 mg by mouth in the morning. [DISCONTINUED] morphine CR (MS Contin) 30 MG 12 hr tablet Take 1 tablet (30 mg) by mouth in the morning and 1 tablet (30 mg) before bedtime. 60 tablet 0 No current facility-administered medications on file prior to visit. Allergies Allergen Reactions Adalimumab stroke Etanercept stroke Bupropion Other Reaction(s): Heightened Sense of Smell Levofloxacin Unknown and Rash Social History Tobacco Use Smoking status: Former Packs/day: 1.50 Years: 45.00 Additional pack years: 0.00 Total pack years: 67.50 Types: Cigarettes Quit date: 2014 Years since quittin.1 Smokeless tobacco: Current Last attempt to quit: 07/02/2014 Tobacco comments: Stopped smoking 2014 Substance Use Topics Alcohol use: Never Comment: Coffee, Chocolate 1-2cups/day Drug use: Never Family History Problem Relation Name Age of Onset Stroke Father Mental illness Father No Known Problems Nephew 08/2021 Past Medical History: Diagnosis Date Anxiety Chest pain 08/20/2017 COPD (chronic obstructive pulmonary disease) ([facility]) Coronary artery disease (CAD) excluded COVID-19 04/2020 DDD (degenerative disc disease), lumbar Depression ([facility]) Diabetes ([facility]) Diabetes mellitus type 2, controlled ([facility]) Diabetic foot ulcer ([facility]) TBH Right diabetic foot ulcer, Sepsis 12/29/2021-12/30/2021 Elevated troponin 03/22/2021 /V/D, Elevated Troponin, Lactic Acidosis Fractures, multiple H/o Rt Wrist, Rt Foot, Clavicle, Finger, & Toe Fractures GERD (gastroesophageal reflux disease) History of migraine headaches Hypertension ([facility]) Leukocytosis 2010 Lung nodules 12/2010 CARRASCO (nonalcoholic steatohepatitis) Nephrolithiasis NSTEMI (non-ST elevated myocardial infarction) ([facility]) NSTEMI, N/V/D 09/29/2022-10/09/2022 Recurrent vertigo 04/13/2020 Recurrent Vertigo, N/V, Covid 19 Rheumatoid arthritis ([facility]) Vitamin D deficiency Past Surgical History: Procedure Laterality Date ANGIOPLASTY BACK SURGERY 2007 BLADDER SUSPENSION 2014 Bladder sling BONE MARROW BIOPSY COLONOSCOPY 2012 CYST REMOVAL 2016 DEBRIDEMENT 12/29/2021 Ulcer Debridement Rt Foot DILATION AND CURETTAGE 1981 EXCISION 2004 Excision of Elbow Mass FOOT SURGERY 10/12/2008 FOOT SURGERY Right 07/15/2019 Dr. Cervantes [place] LIGATE FALLOPIAN TUBE 1981 Bilateral tubal ligation TONSILLECTOMY 1963 TOTAL VAGINAL HYSTERECTOMY [address] Guided Liver Biopsy Visit Vitals BP 128/76 Pulse 68 Ht 5' 6 Wt 190 lb SpO2 95% BMI 30.67 kg/m Smoking Status Former BSA 2 m Review of Systems Constitutional: Negative for chills, fatigue and fever. HENT: Positive for congestion, ear pain, rhinorrhea, sinus pressure and sinus pain. Negative for sore throat. Respiratory: Positive for cough. Negative for shortness of breath and wheezing. Cardiovascular: Negative for chest pain and palpitations. Gastrointestinal: Negative for abdominal pain, constipation, diarrhea, nausea and vomiting. Objective Physical Exam Constitutional: General: She is not in acute distress. Appearance: Normal appearance. She is well-developed. HENT: Head: Normocephalic and atraumatic. Right Ear: Swelling and tenderness present. A middle ear effusion is present. Left Ear: Tympanic membrane and ear canal normal. Nose: Congestion present. Mouth/Throat: Mouth: Mucous membranes are moist. Pharynx: Posterior oropharyngeal erythema present. Eyes: General: No scleral icterus. Conjunctiva/sclera: Conjunctivae normal. Neck: Thyroid: No thyromegaly. Cardiovascular: Rate and Rhythm: Normal rate and regular rhythm. Heart sounds: Normal heart sounds. No murmur heard. Pulmonary: Effort: Pulmonary effort is normal. No respiratory distress. Breath sounds: Normal breath sounds. No wheezing, rhonchi or rales. Musculoskeletal: General: Deformity present. Lymphadenopathy: Cervical: No cervical adenopathy. Skin: General: Skin is warm and dry. Neurological: General: No focal deficit present. Mental Status: She is alert and oriented to person, place, and time. Psychiatric: Mood and Affect: Mood is depressed. Speech: Speech normal. Behavior: Behavior normal. Behavior is cooperative. Thought Content: Thought content normal. Cognition and Memory: Cognition normal. Judgment: Judgment normal. Office Visit on 08/15/2023 Component Date Value Ref Range Status Hemoglobin A1C 08/15/2023 6.6 Final Assessment/Plan Diagnoses and all orders for this visit: Type 2 diabetes mellitus without complication, without long-term current use of insulin ([facility]) - POCT Glycated hemoglobin, total Encounter for screening for malignant neoplasm of colon - Cologuard colon cancer screening; Future Radiculopathy, unspecified spinal region - morphine CR (MS Contin) 15 MG 12 hr tablet; Take 1 tablet (15 mg) by mouth in the morning and 1 tablet (15 mg) before bedtime. - This is a dose reduction attempt. She would like to get off of this pain medication, which I strongly endorse. Acute non-recurrent sinusitis, unspecified location - cefdinir (Omnicef) 300 MG capsule; Take 1 capsule (300 mg) by mouth in the morning and 1 capsule (300 mg) before bedtime. Do all this for 7 days. Tinea corporis - fluconazole (Diflucan) 100 MG tablet; Take 1 tablet (100 mg) by mouth in the morning for 10 days. Acute otitis media, unspecified otitis media type - sbvcablu-eqergpwax-yctajedgkavnjs (Cortisporin) 3.5-38551-3 otic suspension; Administer 3-4 dropsinto affected ear(s) in the morning and 3-4 drops at noon and 3-4 drops in the evening and 3-4 drops before bedtime. Do all this for 10 days. Follow up in about 2 months (around 10/14/2023) for F/U med changes. [id number] NotePROCEDURE: XR ANKLE RT MIN 3 VIEWS, XR TOES RT MIN 2 V HISTORY: Pain of right ankle joint , chronic; right first toe ulcer COMPARISON: XR ankle and foot right 11/27/2021 FINDINGS: BONES:Mechanical fusion of the first metatarsophalangeal joint via dorsal plate and screws; no evidence of hardware fracture or loosening. No acute bone fracture dislocation. Postsurgical versus posttraumatic changes of the second, third, and fourth tarsal-metatarsal joints; unchanged. Unremarkable ankle joint. SOFT TISSUES:Soft tissue swelling and skin surface defect along the plantar surface of first toe consistent with patient history. Chronic moderate swelling along medial aspect of ankle. EFFUSION:None visible. OTHER: Negative. IMPRESSION: 1. Unremarkable ankle joint. 2. Stable surgical changes of the visible toes. 3. Suspect soft tissue ulcer along the plantar surface of first toe. No appreciable bone involvement to suggest osteomyelitis. Electronically authenticated by: DIAZ MONTEMAYOR Date: 2022-07-25 13:54[facility]01-24-2023 NotePROCEDURE: XR ANKLE RT MIN 3 VIEWS, XR TOES RT MIN 2 V HISTORY: Pain of right ankle joint , chronic; right first toe ulcer COMPARISON: XR ankle and foot right 11/27/2021 FINDINGS: BONES:Mechanical fusion of the first metatarsophalangeal joint via dorsal plate and screws; no evidence of hardware fracture or loosening. No acute bone fracture dislocation. Postsurgical versus posttraumatic changes of the second, third, and fourth tarsal-metatarsal joints; unchanged. Unremarkable ankle joint. SOFT TISSUES:Soft tissue swelling and skin surface defect along the plantar surface of first toe consistent with patient history. Chronic moderate swelling along medial aspect of ankle. EFFUSION:None visible. OTHER: Negative. IMPRESSION: 1. Unremarkable ankle joint. 2. Stable surgical changes of the visible toes. 3. Suspect soft tissue ulcer along the plantar surface of first toe. No appreciable bone involvement to suggest osteomyelitis. Electronically authenticated by: DIAZ MONTEMAYOR Date: 2022-07-25 13:54[facility]06-29-2022 NotePROCEDURE: XR ANKLE RT MIN 3 VIEWS, XR FOOT RT MIN 3 VIEWS COMPARISON: 09/03/2019 HISTORY: Arthritis of right ankle FINDINGS: BONES:No acute fracture or dislocation. Stable fusion first metatarsal-phalangeal joint with a plate and multiple screws. Remote resection head of the second through fifth metatarsals. Lucency in the distal medial tibia possibly bone graft harvesting. No mechanical failure. SOFT TISSUES:Moderate medial ankle soft tissue swelling. Moderate swelling of the first toe. EFFUSION:None visible. OTHER: Negative. IMPRESSION: Soft tissue swelling No acute bony abnormality of the ankle or foot Electronically authenticated by: TAMIKO BYNUM Date: 2021-12-28 14:59[facility]06-29-2022 NotePROCEDURE: XR ANKLE RT MIN 3 VIEWS, XR FOOT RT MIN 3 VIEWS COMPARISON: 09/03/2019 HISTORY: Arthritis of right ankle FINDINGS: BONES:No acute fracture or dislocation. Stable fusion first metatarsal-phalangeal joint with a plate and multiple screws. Remote resection head of the second through fifth metatarsals. Lucency in the distal medial tibia possibly bone graft harvesting. No mechanical failure. SOFT TISSUES:Moderate medial ankle soft tissue swelling. Moderate swelling of the first toe. EFFUSION:None visible. OTHER: Negative. IMPRESSION: Soft tissue swelling No acute bony abnormality of the ankle or foot Electronically authenticated by: TAMIKO BYNUM Date: 2021-12-28 14:59[facility]06-29-2022 NotePROCEDURE: XR TOES RT MIN 2 V COMPARISON: None. HISTORY: Pain in lower limb FINDINGS: BONES:No acute fracture or dislocation. No new focal lytic or sclerotic change. Stable fusion of the first metatarsal-phalangeal joint with a plate and multiple screws. Remote resection head of the second through fifth metatarsals degenerative changes. SOFT TISSUES:Marked soft tissue swelling of the first toe. Suspected subcutaneous air EFFUSION:None visible. OTHER: Negative. IMPRESSION: Soft tissue swelling of the first toe with suspected subcutaneous air. Cellulitis and possible gas-forming organism. No plain film evidence of osteomyelitis at this time Electronically authenticated by: TAMIKO BYNUM Date: 2021-12-28 12:26[facility] HospitalEvaluation noteNo assessment information availableBethesda North Hospital Work Phone: Evaluation note* Diagnosis Type 2 diabetes mellitus without complication, without long-term current use of insulin ([facility])- Primary Encounter for screening for malignant neoplasm of colon Radiculopathy, unspecified spinal region Acute non-recurrent sinusitis, unspecified location Tinea corporis Dermatophytosis of the body Acute otitis media, unspecified otitis media type documented in this encounter [facility]* Diagnosis Lumbar radiculopathy Thoracic or lumbosacral neuritis or radiculitis, unspecified documented in this encounter [facility] HealthcareEvaluation note* Diagnosis Lung nodule, multiple- Primary Medicare annual wellness visit, subsequent Carpal tunnel syndrome, unspecified laterality Cerebral infarction, unspecified mechanism (CMS/HCC) Cervical radiculopathy Brachial neuritis or radiculitis nos Chronic fatigue syndrome Lumbar radiculopathy Thoracic or lumbosacral neuritis or radiculitis, unspecified Mononeuropathy due to type 2 diabetes mellitus (CMS/HCC) Multiple sclerosis (CMS/HCC) Multiple sclerosis Other chronic pain RLS (restless legs syndrome) Restless legs syndrome (RLS) Simple chronic bronchitis (CMS/HCC) Simple chronic bronchitis Acute coronary syndrome (CMS/HCC) Intermediate coronary syndrome Atherosclerosis of [place] coronary artery of [place] heart without angina pectoris ([facility]) Cardiogenic shock ([facility]/HCC) Cardiogenic shock Essential (primary) hypertension ([facility]) Unspecified essential hypertension Heart failure with reduced ejection fraction ([facility]/HCC) NSTEMI (non-ST elevated myocardial infarction) ([facility]) Acute myocardial infarction, subendocardial infarction, episode of care unspecified Peripheral vascular disorder due to diabetes mellitus ([facility]) Raynaud's phenomenon without gangrene Biliary calculus of other site without obstruction Drug-induced constipation Other constipation Fatty liver Other chronic nonalcoholic liver disease MISA (stress urinary incontinence, female) Degeneration of intervertebral disc of lumbar region, unspecified whether pain present Other type of osteoarthritis, unspecified site Osteopenia, unspecified location Obesity (BMI 30-39.9) Other primary ovarian failure Poorly controlled diabetes mellitus ([facility]) Type II or unspecified type diabetes mellitus without mention of complication, not stated as uncontrolled Vitamin D deficiency Anxiety and depression ([facility]) Attention deficit disorder without hyperactivity Dyslipidemia ([facility]) Other and unspecified hyperlipidemia Former smoker Personal history of tobacco use, presenting hazards to health History of hysterectomy Acquired absence of both cervix and uterus Routine adult health maintenance Moderate major depression, single episode (HCC) ([facility]) Major depressive disorder, single episode, moderate Rheumatoid arthritis involving multiple sites with positive rheumatoid factor ([facility]) Encounter for other screening for malignant neoplasm of breast Encounter for screening for osteoporosis Encounter for osteoporosis screening in asymptomatic postmenopausal patient Encounter for screening mammogram for malignant neoplasm of breast [facility] Diagnosis Lumbar radiculopathy Thoracic or lumbosacral neuritis or radiculitis, unspecified [facility] Diagnosis Lumbar radiculopathy Thoracic or lumbosacral neuritis or radiculitis, unspecified [facility]* Diagnosis Attention deficit disorder without hyperactivity [facility]* Diagnosis Lumbar radiculopathy Thoracic or lumbosacral neuritis or radiculitis, unspecified [facility]* Diagnosis Rheumatoid arthritis involving multiple sites with positive rheumatoid factor ([facility])- Primary [facility] this [facility]* Diagnosis Rheumatoid arthritis involving multiple sites with positive rheumatoid factor (CMS/HCC) [facility] N[facility]ative* she hasn t been seen since 2019. The patient feels well and labs are at baseline. there is no complaint of cognitive impairment or fluid overload * Upper Gastrointestinal: no abdominal pain, no eructation, no early satiety, no nausea. * Lower Gastrointestinal: abdominal swelling, bloating, but no constipation, no diarrhea, no fecal incontinence. * Liver Disease no alteration in sleep wake cycle, no ankle swelling, no cognitive impairment, no confusion, no icterus, no increase in abdominal girth. * Symptom History: * Modifying Factors: * Associated Symptoms: * Skin: there are no skin symptoms. * Eyes: there are no eye symptoms. * Ears: there are no ear symptoms. * Nose: there are no nasal symptoms. * Mouth/Throat/Teeth: there are no oral symptoms. * Neck: there are no neck symptoms. [id number] Patient Communicator Work Phone: History of Present illness Narrative* She is unchanged. tests conclusively show cirrhosis. She remains on leflunomide. * Upper Gastrointestinal: no abdominal pain, no eructation, no difficulty swallowing, no early satiety, no heartburn, no jaundiced. * Lower Gastrointestinal: no abdominal swelling, no bloating. * Liver Disease no alteration in sleep wake cycle, no ankle swelling, no cognitive impairment. * Symptom History: * Modifying Factors: * Associated Symptoms: * Skin: there are no skin symptoms. * Eyes: there are no eye symptoms. * Ears: there are no ear symptoms. * Nose: there are no nasal symptoms. * Mouth/Throat/Teeth: there are no oral symptoms. [id number] [id number] Patient Communicator Work Phone: Hospital course Narrative No data available for this section [facility] No data available for this section [facility]ructionsNot on filedocumented in this encounter [facility] No data available for this section [facility] Summary Purpose Family History Unknown Family Member Name Dates Details Family history of malignant neoplasm of esophagus(V16.0, Z80.0) Comments:Multiple Family Mem bers Status:Active Grandparent Name Dates Details Family history of liver canc er(V16.0, Z80.0) Status:Active Family history of malignant neoplasm of breast(V16.3, Z80.3) Status:Active aunt Name Dates Details Family history of malignant neoplasm of breast(V16.3, Z80.3) Status:Active Mother Name Dates Details Family history of cerebrovas cular accident (CVA)(V17.1, Z82.3) Status:Active Father Name Dates Details Family history of coronary a rtery disease(V17.3, Z82.49) Status:Active Brother Name Dates Details Family history of Suicide by firearm(E955.4, X74.9XXA) Status:Active Family history of emphysema( V17.6, Z82.5) Status:Active Unknown Family Member Name Dates Details Family history of cerebrovas cular accident (CVA): Mother(V17.1, Z82.3) Status:Active Family history of coronary a rtery disease: Father(V17.3, Z82.49) Status:Active Suicide by firearm: Brother Status:Active Family history of liver canc er: Grandparent(V16.0, Z80.0) Status:Active Family history of malignant neoplasm of breast: Grandparent, Aunt(V16.3, Z80.3) Status:Active Family history of emphysema: Brother(V17.6, Z82.5) Status:Active Family history of malignant neoplasm of esophagus: Multiple Family Members(V16.0, Z80.0) Status:Active Unknown Family Member Name Dates Details Family history of cerebrovas cular accident (CVA): Mother(V17.1, Z82.3) Status:Active Family history of coronary a rtery disease: Father(V17.3, Z82.49) Status:Active Suicide by firearm: Brother Status:Active Family history of liver canc er: Grandparent(V16.0, Z80.0) Status:Active Family history of malignant neoplasm of breast: Grandparent, Aunt(V16.3, Z80.3) Status:Active Family history of emphysema: Brother(V17.6, Z82.5) Status:Active Family history of malignant neoplasm of esophagus: Multiple Family Members(V16.0, Z80.0) Status:Active Unknown Family Member Name Dates Details Family history of cerebrovas cular accident (CVA): Mother(V17.1, Z82.3) Status:Active Family history of coronary a rtery disease: Father(V17.3, Z82.49) Status:Active Suicide by firearm: Brother Status:Active Family history of liver canc er: Grandparent(V16.0, Z80.0) Status:Active Family history of malignant neoplasm of breast: Grandparent, Aunt(V16.3, Z80.3) Status:Active Family history of emphysema: Brother(V17.6, Z82.5) Status:Active Family history of malignant neoplasm of esophagus: Multiple Family Members(V16.0, Z80.0) Status:Active Unknown Family Member Name Dates Details Family history of cerebrovas cular accident (CVA): Mother(V17.1, Z82.3) Status:Active Family history of coronary a rtery disease: Father(V17.3, Z82.49) Status:Active Suicide by firearm: Brother Status:Active Family history of liver canc er: Grandparent(V16.0, Z80.0) Status:Active Family history of malignant neoplasm of breast: Grandparent, Aunt(V16.3, Z80.3) Status:Active Family history of emphysema: Brother(V17.6, Z82.5) Status:Active Family history of malignant neoplasm of esophagus: Multiple Family Members(V16.0, Z80.0) Status:Active Unknown Family Member Name Dates Details Family history of cerebrovas cular accident (CVA): Mother(V17.1, Z82.3) Status:Active Family history of coronary a rtery disease: Father(V17.3, Z82.49) Status:Active Suicide by firearm: Brother Status:Active Family history of liver canc er: Grandparent(V16.0, Z80.0) Status:Active Family history of malignant neoplasm of breast: Grandparent, Aunt(V16.3, Z80.3) Status:Active Family history of emphysema: Brother(V17.6, Z82.5) Status:Active Family history of malignant neoplasm of esophagus: Multiple Family Members(V16.0, Z80.0) Status:Active Advance Directives Advance Directive Response Recorded Date/ Time Advance Directives No May 01, 2017 5:55am Advance Directive Response Recorded Date/ Time Advance Directives No May 01, 2017 6:55am Latest Code Status on File Code Status Date Activated Date Inactivated Comments Full Code 09/08/2023 3:41 PM 09/13/2023 9:06 PM Code Status History Code Status Date Activated Date Inactivated Comments Full Code 01/21/2023 10:12 PM 01/24/2023 6:24 PM Full Code 09/29/2022 6:38 AM 10/09/2022 8:04 PM Chief Complaint * A telephone visit (audio only) between the patient (at the originating site) and the provider (at the distant site) was utilized to provide this telehealth service. * carrasco cirrhosis * 1040) Patient referred for a Fibroscan with a diagnosis of Fatty Liver. Patient identified X 2 and confirmed fasting for >3 hours. * Fibroscan study completed using XL probe and 10 valid measurements obtained. Patient tolerated procedure well. * Results: Median= 16.4 kPa * IQR/ med= 19 % * CAP= 340 dB/m * Patient advised the physician will read the study and review it at their next appointment * Jason Boss RN * A telephone visit (audio only) between the patient (at the originating site) and the provider (at the distant site) was utilized to provide this telehealth service. * Verbal consent was requested and obtained from SOUMYA ABDI on this date, 07/24/2022 08:00 AM , for a telehealth visit. * A telephone visit (audio only) between the patient (at the originating site) and the provider (at the distant site) was utilized to provide this telehealth service. * Verbal consent was requested and obtained from SOUMYA ABDI on this date, 07/24/2022 08:00 AM , for a telehealth visit. * CARRASCO cirrhosis Chief Complaint and Reason for Visit Chief Complaint d69.6 k76.0 k74.60 Reason for Referral Specialty Diagnoses / Procedures Referred By Arnaldo marsh Referred To Contact Diagnoses Attention deficit disorder without hyperactivity Isa Da Silva PA [address] [facility] [address] [place] [address] Referral ID Status Reason Start Date Expiration Date Visits Re quested Visits Authorized [id number] Closed 1 1 Specialty Diagnoses / Procedures Referred By Contac t Referred To Contact Diagnoses Lumbar radiculopathy Ludwin Wen MD [address] [place] [address] Referral ID Status Reason Start Date Expiration Date Visits Re quested Visits Authorized [id number] Closed 1 1 Additional Source Comments INFORMATION SOURCE (unrecogn ized section and content) DATE CREATED AUTHOR 01/03/2018 [facility] DATE CREATED AUTHOR AUTHOR'S ORGANIZ ATION 10/05/2018 [facility] DATE CREATED AUTHOR AUTHOR'S ORGANIZ ATION 12/30/2018 [facility] DATE CREATED AUTHOR AUTHOR'S ORGANIZ ATION 06/24/2022 [facility] DATE CREATED AUTHOR AUTHOR'S ORGANIZ ATION 10/19/2022 [facility] DATE CREATED AUTHOR AUTHOR'S ORGANIZ ATION 04/02/2023 [facility] DATE CREATED AUTHOR AUTHOR'S ORGANIZ ATION 04/03/2023 [facility] DATE CREATED AUTHOR AUTHOR'S ORGANIZ ATION 09/08/2023 [facility] DATE CREATED AUTHOR AUTHOR'S ORGANIZ ATION 09/14/2023 [facility] DATE CREATED AUTHOR AUTHOR'S ORGANIZ ATION 10/12/2023 [facility] DATE CREATED AUTHOR AUTHOR'S ORGANIZ ATION 11/21/2023 [facility] DATE CREATED AUTHOR AUTHOR'S ORGANIZ ATION 12/02/2023 [facility] DATE CREATED AUTHOR AUTHOR'S ORGANIZ ATION 05/02/2024 [facility] DATE CREATED AUTHOR AUTHOR'S ORGANIZ ATION 05/15/2024 [facility] EPIC Care Teams (unrecognized sec tion and content) Team Status: Inactive Member Role Status Dates Juan F Savage MD Attending Provider Active Ludwin Wen II MD Primary Care Provider Active Team Status: Active Member Role Status Dates Ludwin Wen II MD Primary Care Provider Active Team Status: Inactive Member Role Status Dates Ludwin Wen II MD Primary Care Provider Active Gaetano Torres MD Attending Provider Active Leaf Sorter Relationship Specialty Start Date End Date Ludwin Wen MD [address] [place] [address] PCP - General Internal Medicine 11/13/22 Ludwin Wen MD [address] [place] [address] PCP - [place] 11/30/22 Leaf Sorter Relationship Specialty Start Date End Date Ludwin Wen MD [address] [facility] [address] [place] [address] PCP - General Internal Medicine 11/13/22 Luwdin Wen MD [address] [facility] [address] [place] [address] PCP - Medical [place] 11/30/22 Leaf Sorter Relationship Specialty Start Date End Date Ludwin Wen MD [address] [place] [id number] PCP - General Internal Medicine 07/16/22 Leaf Sorter Relationship Specialty Start Date End Date Ludwin Wen MD [address] [place] [address] PCP - General Internal Medicine 07/16/22 Team Status: Inactive Member Role Status Dates Ludwin Wen II MD Primary Care Provider Active Start: November 08, 2023 End: November 08, 2023 Howard Kolb MD Attending Provider Active Start: November 08, 2023 End: November 08, 2023 Leaf Sorter Relationship Specialty Start Date End Date Ludwin Wen MD [address] [facility] [address] [place] [address] PCP - General Internal Medicine 11/13/22 Ludwin Wen MD [address] [facility] [address] [place] [address] PCP - [employer] 07/02/23 Leaf Sorter Relationship Specialty Start Date End Date Ludwin Wen MD [address] [place] [address] PCP - General Internal Medicine 11/13/22 Ludwin Wen MD [address] [place] [address] PCP - [employer] 07/02/23 Leaf Sorter Relationship Specialty Start Date End Date Ludwin Wen MD [address] [place] [address] PCP - General Internal Medicine 11/13/22 Ludwin Wen MD [address] [place] [address] PCP - [employer] 07/02/23 Leaf Sorter Relationship Specialty Start Date End Date Ludwin Wen MD [address] [place] [address] PCP - General Internal Medicine 11/13/22 Ludwin Wen MD [address] [place] [address] PCP - [employer] 07/02/23 Leaf Sorter Relationship Specialty Start Date End Date Ludwin Wen MD [address] [place] [address] PCP - General Internal Medicine 11/13/22 Ludwin Wen MD [address] [place] [address] PCP - [employer] 07/02/23 Leaf Sorter Relationship Specialty Start Date End Date Ludwin Wen MD [address] [place] [address] PCP - General Internal Medicine 11/13/22 Ludwin Wen MD [address] [place] [address] PCP - [employer] 07/02/23 Leaf Sorter Relationship Specialty Start Date End Date Ludwin Wen MD [address] [place] [address] PCP - General Internal Medicine 11/13/22 Ludwin Wen MD [address] [place] [address] PCP - [employer] 07/02/23 Leaf Sorter Relationship Specialty Start Date End Date Ludwin Wen MD [address] [place] [address] PCP - General Internal Medicine 11/13/22 Leaf Sorter Relationship Specialty Start Date End Date Ludwin Wen MD [address] [place] [address] PCP - General Internal Medicine 11/13/22 Goals (unrecognized section and content) Goals may be documented in a n alternate sectionGoals may be documented in an alternate sectionGoals may be documented in an alternate section No data available for this sectionGoals may be documented in an alternate section Reason for Visit (unrecogniz ed section and content) Reason Comments Diabetes Earache New Med Request Pt requesting rx for diflucan cream to use in skin foldsPt would also like to discuss decreasing dose of morphine Reason Comments Med Refill Furosemide, Vitamin D Reason Onset Date Comments Med Refill 02/28/2024 Reason Comments Med Refill Reason Onset Date Comments Med Refill 03/31/2024 FOR RECORDS PERTAINING TO PATIENTS WHO ARE OR HAVE BEEN ENROLLED IN A CHEMICAL DEPENDENCY/SUBSTANCEABUSE PROGRAM, SOME INFORMATION MAY BE OMITTED. This clinical summary was aggregated from multiple sources. Caution should be exercised in using it in the provision of clinical care. This summary normalizes information from multiple sources, and as a consequence, information in this document may materially change the coding, format and clinical context of patient data. In addition, data may be omitted in some cases. CLINICAL DECISIONS SHOULD BE BASED ON THE PRIMARY CLINICAL RECORDS. [facility] [employer] [facility]. provides no warranty or guarantee of the accuracy or completeness of information in this document.
[2024-08-01 13:10] LABS: Alanine Aminotransferase 24 U/L (14-59); Albumin Globulin Ratio 1.1; Albumin Level 3.7 g/dL (3.4-5.0); Alkaline Phosphatase 104 U/L (46-116); Aspartate Amino Transferase 19 U/L (15-37); Bilirubin Direct 0.1 mg/dL (0.0-0.2); Bilirubin Total 0.6 mg/dL (0.2-1.0); Estimated GFR (African America >60 (>=60 mL/min/1.73m^2); Estimated GFR (Non-African Ame >60 (>=60 mL/min/1.73m^2); Globulin 3.3 g/dL
== END 2024-08-01 12:24 | disposition home or self-care (01) ==
LOC: LAB 12:25
PROVIDERS: PCP Internal Medicine; Visit Provider Internal Medicine Rheumatology
DX: M05.79 Rheumatoid arthritis with rheumatoid factor of multiple sites without organ or systems involvement (principal); Z79.899 Other long term (current) drug therapy
CPT/HCPCS: 36415; 80076; 82565; 85025; 85652

== ENCOUNTER 2024-08-01 12:43 | Outpatient (OUT) | payer MEDICARE, SELFPAY ==
--- NOTE | 2024-08-01 12:49 | CT_ITS ---
The [address] [address] Patient Name: ALEX ABDI MRN: [id number] date: 1960 Sex: F Assigned Patient Location: MAMMO Current Patient Location: Accession/Order Number: [id number] Exam Date: 08/01/2024 13:24 Report Date: 08/04/2024 10:20 At the request of: EYAL METCALF Procedure: CT lung screening low-dose EXAMINATION: CT lung screening low-dose HISTORY: SCREENING FOR LUNG CANCER COMPARISON: CT chest 09/28/2022 TECHNIQUE: Axial, Coronal, and Sagittal images were created without the administration of IV contrast material. Dose reduction techniques were achieved by using automated exposure control and/or adjustment of mA and/or kV according to patient size and/or use of iterative reconstruction technique. FINDINGS: LUNGS: Mild emphysematous changes. No suspicious nodules or acute infiltrates. PLEURA: No mass, effusion, or pneumothorax. VASCULATURE: No abnormality. MELISSA: No mass or pathologic adenopathy. MEDIASTINUM: No mass or pathologic adenopathy. CARDIAC: No enlargement, pericardial thickening, or pericardial effusion. Coronary Artery calcifications: Coronary calcifications are heavy. AORTA: No aneurysm or dissection. CHEST WALL: No mass or axillary adenopathy BONES: Mechanical fusion of lower cervical spine. Multilevel mild-moderate degenerative changes of thoracic spine. LIMITED ABDOMEN: Nodular liver margins; nonspecific but can be seen with cirrhosis. Limited images of the upper abdomen. OTHER: Negative. CT/CT lung screening low-dose IMPRESSION: 1. Lung-RADS Category 1 Negative. No nodules and definitely benign nodules. Continue annual screening with LDCT in 12 months. Electronically authenticated by: DIAZ MONTEMAYOR Date: 08/04/2024 10:20
--- NOTE | 2024-08-01 12:50 | MM_ITS ---
Patient Name: ALEX ABDI MR#: [id number] : 1960 Exam Date: 08/01/2024 Ordering Doctor: MRS. EYAL METCALF PROFESSOR OF ART HISTORY-C RADIOLOGY REPORT PROCEDURE: MM TOMOSYNTHESIS SCREENING BI COMPARISON: MG MAMM SCREEN 3D DONN CAD, 10/18/2021. MM TOMOSYNTHESIS SCREENING BI, 03/30/2023. INDICATIONS: screening for malignant Calculator Name NCI Breast Cancer Risk Assessment Tool 5 Year Breast Cancer Risk 1.90% Lifetime Breast Cancer Risk 7.00% Personal Breast Cancer No Personal Ovarian Cancer No Treatments None Family Cancers Grandmother-maternal with liver cancer at age 48; Grandfather-maternal with leg,lung,esopagus, tongue cancer at age ~38; Grandfather-paternal with lung cancer at age ~60; Aunt-paternal with breast cancer at age 52. LOCATION: [facility] BREAST COMPOSITION: There are scattered areas of fibroglandular density. FINDINGS: DIAGNOSTIC CATEGORY 2--BENIGN FINDING. NO CHANGE FROM COMPARISON. Scattered benign-appearing calcifications are present. Scattered benign-appearing lymph nodes are present. RIGHT BREAST: No significant suspicious finding. LEFT BREAST: No significant suspicious finding. RECOMMENDATIONS: ROUTINE MAMMOGRAM AND CLINICAL EVALUATION IN 12 MONTHS. PLEASE NOTE: A NORMAL MAMMOGRAM DOES NOT EXCLUDE THE POSSIBILITY OF BREAST CANCER. A CLINICALLY SUSPICIOUS PALPABLE LUMP SHOULD BE BIOPSIED. Dictated by: Ovi Bynum MD on 08/01/2024 at 15:05 Approved by: Ovi Bynum MD on 08/01/2024 at 15:06
== END 2024-08-01 12:44 | disposition home or self-care (01) ==
LOC: MAMMO 12:43
PROVIDERS: PCP Internal Medicine; Visit Provider Nurse Practitioner Family
DX: Z00.00 Encounter for general adult medical examination without abnormal findings (principal); Z12.31 Encounter for screening mammogram for malignant neoplasm of breast; R91.8 Other nonspecific abnormal finding of lung field; Z87.891 Personal history of nicotine dependence; Z80.8 Family history of malignant neoplasm of other organs or systems; Z80.1 Family history of malignant neoplasm of trachea, bronchus and lung; Z80.3 Family history of malignant neoplasm of breast; Z80.0 Family history of malignant neoplasm of digestive organs
CPT/HCPCS: 71271; 77063; 77067

== ENCOUNTER 2024-11-26 09:51 | Emergency (ER) | payer MEDICARE, SELFPAY ==
[2024-11-26 09:59] VITALS: BP 105/70; PULSE 85; TEMP 37.2; O2SAT 96; BMI 34.9
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
== END 2024-11-26 10:56 | disposition home or self-care (01) ==
PROVIDERS: Emergency Provider Emergency Medicine; PCP Internal Medicine
DX: Z90.710 Acquired absence of both cervix and uterus (principal); S40.012A Contusion of left shoulder, initial encounter; S20.01XA Contusion of right breast, initial encounter; V86.55XA Driver of 3- or 4- wheeled all-terrain vehicle (ATV) injured in nontraffic accident, initial encounter
CPT/HCPCS: 71101; 73030; 99284

== ENCOUNTER 2025-04-22 08:08 | Outpatient (OUT) | payer MEDICARE, SELFPAY ==
--- OUTSIDE RECORDS SUMMARY | 2025-04-17 09:15 | XMS_ITS | Encounter Summary ---
Author Organization [facility] Address [address] [place] [address] Care Team Providers Care Recooperer Name Role Phone Ludwin Wen MD Primary Care Provider [phone] Ludwin Wen MD Unavailable [phone] Reason for Visit * ReasonCommentsDiabetesFollow-upControlled meddiscuss medPt states she has not been on her atorvastatin--she ran out quite awhile ago Encounter Details DateTypeDepartmentCare Team (Latest Contact Info)Vfqorgizmrq51/17/2025 9:15 AM EDTOffice Visit [facility] [address] [place] [id number] Ludwin Wen MD [address] [facility] [address] [place] [address] Rheumatoid arthritis involving multiple sites with positive rheumatoid factor (HCC) (Primary Dx); Type 2 diabetes mellitus with hyperglycemia, with long-term current use of insulin (HCC); Essential hypertension; Mixed hyperlipidemia; Atherosclerosis of [place] coronary artery of [place] heart without angina pectoris Social History Tobacco UseTypesPacks/DayYears UsedDateSmoking Tobacco: FormerCigarettes1.545 1970 - 2014Smokeless Tobacco: CurrentLast attempted to quit: 07/02/2014 Comments:Stopped smoking 201 5 Alcohol UseStandard Drinks/WeekCommentsNever0 (1 standard drink = 0.6 oz pure alcohol)Coffee, Chocolate 1-2cups/dayHumiliation, Afraid, Rape, and Kick questionnaireAnswerDate RecordedWithin the last year, have you been afraid of your partner or ex-partner?No05/10/2023Within the last year, have you been humiliated or emotionally abused in other ways by your partner or ex-partner?No 05/10/2023Within the last year, have you been kicked, hit, slapped, or otherwise physically hurt by your partner or ex-partner?No05/10/2023Sexually AbusedNot on file05/10/2023Social Connection and Isolation PanelAnswerDate RecordedIn a typical week, how many times do you talk on the phone with family, friends, or neighbors?Three times a week05/10/2023How often do you get together with friends or relatives?Twice a week05/10/2023How often do you attend samaritan or latter-day services?Never05/10/2023o you belong to any clubs or organizations such as samaritan groups, unions, fraternal or athletic groups, or school groups?No 05/10/2023How often do you attend meetings of the clubs or organizations you belong to?Never05/10/2023re you , , , , never , or living with a partner?Kfwbdsjb48/09/2023UDIT-CAnswerDate Recorded Q1: How often do you have a drink containing alcohol?Never05/10/2023Q2: How many drinks containing alcohol do you have on a typical day when you are drinking? Patient does not drink05/10/2023Q3: How often do you have six or more drinks on one occasion?Never05/10/2023Overall Financial Resource Strain (CARDIA)AnswerDate RecordedHow hard is it for you to pay for the very basics like food, housing, medical care, and heating?Not hard at all05/10/2023HQ-2AnswerDate Recorded Patient Health Questionnaire-2 Daixj383Fin[facility] [place] of Occup[facility] Health - Occupational Stress QuestionnaireAnswerDate RecordedDo you feel stress - tense, restless, nervous, or anxious, or unable to sleep at night because your mind is troubled all the time - these days?Not at all05/10/2023Exercise Vital SignAnswerDate RecordedOn average, how many days per week do you engage in moderate to strenuous exercise (like a brisk walk)?0 days05/10/2023On average, how many minutes do you engage in exercise at this level?0 min05/10/2023Hunger Vital SignAnswerDate RecordedWithin the past 12 months, you worried that your food would run out before you got the money to buymore.Never true05/10/2023 Within the past 12 months, the food you bought just didn't last and you didn't have money to get more.Never true05/10/2023RAPARE - TransportationAnswerDate RecordedIn the past 12 months, has lack of transportation kept you from medical appointments or from getting medications?No05/10/2023In the past 12 months, has lack of transportation kept you from meetings, work, or from getting things needed for daily living?No05/10/2023Housing Stability Vital SignAnswerDate RecordedIn the last 12 months, was there a time when you were not able to pay the mortgage or rent on time?No05/10/2023In the last 12 months, how many places have you lived?In the last 12 months, was there a time when you did not have a steady place to sleep or slept in formerly [facility] (including now)?No 05/10/2023CommentsUnknownSex and Gender InformationValueDate RecordedSex Assigned at BirthNot on fileLegal CtfHzibam46/15/2023 6:45 PM EDTGender Identity Not on fileSexual OrientationNot on filedocumented as of this encounter Last Filed Vital Signs Vital SignReadingTime TakenCommentsBlood Nmghlifw969/7604/17/2025 9:13 AM EDT Etiiu923304/17/2025 9:13 AM EDTTemperature--Respiratory Rate--Oxygen Derxwkjkwt25% 04/17/2025 9:13 AM EDTInhaled Oxygen Concentration--Xhowrt38.3 kg (210 lb) 04/17/2025 9:13 AM AFLDfndrb224.6 cm (5' 6 )04/17/2025 9:13 AM EDTBody Mass Index33.8910 9:13 AM EDTdocumented in this encounter Progress Notes * Ludwin Wen MD - 04/17/2025 9:15 AM EDT Images from the original note were not included. HPI Follow-up Additional comments: Controlled med discuss med Additional comments: Pt states she has not been on her atorvastatin--she ran out quite awhile ago Last edited by Edna Whitmore LPN on 04/17/2025 9:18 AM. Subjective Patient ID: Soumya Gil is a 64 y.o. female who presents for Diabetes, Follow- up (Controlled med), and discuss med (Pt states she has not been on her atorvastatin--she ran out quite awhile ago ). Diabetes Mellitus Patient presents for follow up of diabetes. Current symptoms include: paresthesia of the feet. Patient denies foot ulcerations, hypoglycemia , nausea, polydipsia, polyuria, visual disturbances, and vomiting. Evaluation to date has included: fasting blood sugar, fasting lipid panel, hemoglobin A1C, and microalbuminuria. Home sugars: BGs range between 250 and 350 Diabetes Med Refill Current Outpatient Medications on File Prior to Visit Medication Sig Dispense Refill albuterol HFA (ProAir HFA) 90 mcg/act inhaler Inhale 2 puffs every 4 (four) hours if needed. aspirin 81 MG EC tablet Take 81 mg by mouth in the morning. carvedilol (Coreg) 6.25 MG tablet Take 1 tablet (6.25 mg) by mouth in the morning and 1 tablet (6.25 mg) in the evening. Take with meals. 200 tablet 3 cholecalciferol (Vitamin D-3) 25 MCG (1000 UT) capsule Take 1 capsule (25 mcg) by mouth Daily 100 capsule 3 [employer] Stool Softener 100 MG capsule TAKE 1 CAPSULE (100 MG) BY MOUTH IN THE MORNING 100 capsule 3 finerenone (Kerendia) 10 MG tablet Take 10 mg by mouth Daily FLUoxetine (PROzac) 40 MG capsule TAKE 1 CAPSULE BY MOUTH EVERY MORNING 100 capsule 3 fluticasone (Flonase) 50 MCG/ACT nasal spray Administer 2 sprays into each nostril in the morning. furosemide (Lasix) 20 MG tablet TAKE 1 TABLET BY MOUTH EVERY DAY 90 tablet 3 lactulose (Chronulac) 10 GM/15ML solution Take 10 g by mouth in the morning and 10 g at noon and 10g in the evening. leflunomide (Arava) 20 MG tablet Take 20 mg by mouth in the morning. lisinopril 20 MG tablet Take 20 mg by mouth Daily modafinil (Provigil) 200 MG tablet Take 1 tablet (200 mg) by mouth Daily 30 tablet 0 oxyCODONE (Roxicodone) 5 MG immediate release tablet Take 1 tablet (5 mg) by mouth every 12 (twelve) hours if needed for severe pain 60 tablet 0 pantoprazole (ProtoNix) 40 MG EC tablet Take 40 mg by mouth in the morning and 40 mg in the evening. Take before meals. potassium chloride ER (Micro-K) 10 MEQ ER capsule TAKE 1 CAPSULE BY MOUTH EVERY DAY 90 capsule 3 riTUXimab (RITUXAN IV) every 6 (six) months. WITH RHEUMATOLOGY senna-docusate (Lidia-Colace) 8.6-50 MG tablet Take 1 tablet by mouth 2 (two) times a day as needed for constipation. SITagliptin (Januvia) 100 MG tablet Take 1 tablet (100 mg) by mouth Daily 90 tablet 3 [DISCONTINUED] glucose blood ([employer] Ultra) test strip 1 each by Other route in the morning and 1each before bedtime. [DISCONTINUED] atorvastatin (Lipitor) 40 MG tablet Take 40 mg by mouth at bedtime. No current facility-administered medications on file prior to visit. I have reviewed and reconciled the history and medication list with the patient today. Allergies Allergen Reactions Adalimumab stroke Etanercept stroke Bupropion Other Reaction(s): Heightened Sense of Smell Citalopram Other PROLONGED QT Heart issues Hydroxychloroquine Other PROLONGED QT Meclizine Other PROLONGED QT Heart issues Metoprolol Other PROLONGED QT Ondansetron Other PROLONGED QT Prolonged QT Levofloxacin Unknown and Rash Social History Tobacco Use Smoking status: Former Current packs/day: 0.00 Average packs/day: 1.5 packs/day for 45.0 years (67.5 ttl pk-yrs) Types: Cigarettes Start date: 1969 Quit date: 2014 Years since quittin.8 Smokeless tobacco: Current Last attempt to quit: 07/02/2014 Tobacco comments: Stopped smoking 2014 Substance Use Topics Alcohol use: Never Comment: Coffee, Chocolate 1-2cups/day Drug use: Never Family History Problem Relation Name Age of Onset Stroke Father Mental illness Father No Known Problems Nephew 08/2021 Past Medical History: Diagnosis Date Anxiety Chest pain 08/20/2017 COPD (chronic obstructive pulmonary disease) (HCC) Coronary artery disease (CAD) excluded COVID-19 04/2020 DDD (degenerative disc disease), lumbar Depression Diabetes (HCC) Diabetes mellitus type 2, controlled (HCC) Diabetic foot ulcer (HCC) TBH Right diabetic foot ulcer, Sepsis 12/29/2021-12/30/2021 Elevated troponin 03/22/2021 /V/D, Elevated Troponin, Lactic Acidosis Fractures, multiple H/o Rt Wrist, Rt Foot, Clavicle, Finger, & Toe Fractures GERD (gastroesophageal reflux disease) History of migraine headaches Hypertension Leukocytosis 2010 Lung nodules 12/2010 THOMAS (nonalcoholic steatohepatitis) Nephrolithiasis 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) 11/07/2022 NSTEMI (non-ST elevated myocardial infarction) (HCC) NSTEMI, N/V/D 09/29/2022-10/09/2022 Recurrent vertigo 04/13/2020 Recurrent Vertigo, N/V, Covid 19 Rheumatoid arthritis (HCC) Type 2 diabetes mellitus with foot ulcer (HCC) 11/07/2022 Ulcer of foot due to type 2 diabetes mellitus (HCC) 03/05/2019 Vitamin D deficiency Past Surgical History: Procedure Laterality Date ANGIOPLASTY BACK SURGERY 2008 BLADDER SUSPENSION 2015 Bladder sling BONE MARROW BIOPSY COLONOSCOPY 2012 CYST REMOVAL 2016 DEBRIDEMENT 12/29/2021 Ulcer Debridement Rt Foot DILATION AND CURETTAGE 1981 EXCISION 2004 Excision of Elbow Mass FOOT SURGERY 10/12/2008 FOOT SURGERY Right 07/15/2019 Dr. Jorge ME LIGATE FALLOPIAN TUBE 1981 Bilateral tubal ligation TONSILLECTOMY 1963 TOTAL VAGINAL HYSTERECTOMY [address] Guided Liver Biopsy Visit Vitals BP 132/76 Pulse 71 Ht 5' 6 Wt 210 lb SpO2 95% BMI 33.89 kg/m?? Smoking Status Former BSA 2.11 m?? Review of Systems Objective Physical Exam Vitals reviewed. Constitutional: Appearance: [...] Abdomen is soft. Musculoskeletal: General: Deformity present. Left shoulder: Tenderness present. Decreased range of motion. Skin: General: Skin is warm and dry. Findings: Lesion present. Comments: Multiple lesions on skin in varying healing stages. Neurological: General: No focal deficit present. Mental Status: She is alert and oriented to person, place, and time. Motor: Weakness present. Psychiatric: Mood and Affect: Mood normal. Behavior: Behavior normal. Office Visit on 04/17/2025 Component Date Value Ref Range Status Hemoglobin A1C 04/17/2025 11.6 Final Assessment/Plan Diagnoses and all orders for this visit: Rheumatoid arthritis involving multiple sites with positive rheumatoid factor ([facility]) Type 2 diabetes mellitus with hyperglycemia, with long-term current use of insulin ([facility]) - POCT Glycated hemoglobin, total - dapagliflozin (Farxiga) 10 MG; Take 1 tablet (10 mg) by mouth Daily - glucose blood ([employer] Ultra) test strip; 1 each by Other route in the morning and 1 each beforebedtime. Essential hypertension Mixed hyperlipidemia - rosuvastatin (Crestor) 10 MG tablet; Take 1 tablet (10 mg) by mouth Daily Atherosclerosis of [place] coronary artery of [place] heart without angina pectoris Other orders - Follow Up In Family Medicine; Future Follow up with Dr. Ludwin Wen in 30 days (on 05/17/2025). documented in this encounter Plan of Treatment DateTypeDepartmentCare Team (Latest Contact Info)Obmuhvcfzza47/17/2025 9:00 AM ESTOffice Visit [facility] [address] [facility] [address] [place] [id number] Ludwin Wen MD [address] [facility] [address] [place] [address] documented as of this encounter Procedures Procedure NamePriorityDate/TimeAssociated DiagnosisCommentsPOCT GLYCATED HEMOGLOBIN, XBYCEFbmhfnx39/17/2025 10:10 AM EDT Type 2 diabetes mellitus with hyperglycemia, with long-term current use of insulin ([facility]) documented in this encounter Results * POCT Glycated hemoglobin, total (04/17/2025 10:10 AM EDT)ComponentValueRef RangeTest MethodAnalysis TimePerformed AtPathologist SignatureHemoglobin A1C 11.6Specimen (Source)Anatomical Location / LateralityCollection Method / VolumeCollection TimeReceived AybkWkfty78/17/2025 10:10 AM EDT Narrative Authorizing ProviderResult TypeResult StatusDanimustapha Wen MDPOINT OF CARE TEST ENTER/EDIT ORDERABLESFinal Result documented in this encounter Visit Diagnoses Diagnosis Rheumatoid arthritis involving multiple sites with positive rheumatoid factor (HCC)- Primary Type 2 diabetes mellitus with hyperglycemia, with long-term current use of insulin ([facility]) Essential hypertension Unspecified essential hypertension Mixed hyperlipidemia Atherosclerosis of [place] coronary artery of [place] heart without angina pectoris documented in this encounter Additional Health Concerns AssessmentNoted TimePHQ-9 Depression Total Score: 18107/13/2023 10:00 AM EST documented as of this encounter Care Teams Team MemberRelationshipSpecialtyStart DateEnd Date Ludwin Wen MD [address] [facility] [address] [place] [address] PCP - GeneralInternal Medicine11/13/22 Ludwin Wen MD [address] [place] [address] PCP - [employer]07/02/23documented as of this encounter
--- OUTSIDE RECORDS SUMMARY | 2025-04-22 08:14 | XMS_ITS | Clinical Summary ---
Author Organization [facility] Address [address] [place] [address] Phone Care Team Providers Care Acute Care Physical Therapist Name Role Phone Gaetano Torrse MD Primary Care Provider Social History Tobacco UseTypesPacks/DayYears UsedDateSmoking Tobacco: Never Assessed CommentsUnknownSex and Gender InformationValueDate RecordedSex Assigned at Not on fileLegal AgyFlbewo70/26/2022 10:47 AM ESTGender IdentityNot on file Sexual OrientationNot on file Last Filed Vital Signs Vital SignReadingTime TakenCommentsBlood Pressure--Pulse--Temperature-- Respiratory Rate--Oxygen Saturation--Inhaled Oxygen Concentration--Tqbifm74.7 kg (219 lb 12.8 oz)11/04/2018 1:37 PM UUKCeatju138.6 cm (5' 5.98 )11/04/2018 1:37 PM EDTBody Mass Index35.4905 1:37 PM EDT Plan of Treatment Health MaintenanceDue DateLast DoneCommentsCT Roouinoixoab1958Colonoscopy 1958Colorectal Cancer Lekcoxqhk1958FIT-DNA (Cologuard)1958FIT 1960Lipid Panel1960 7388Ripqlkfldrjwz1958Yearly Adult Physical 1958MMR Vaccines (1 of 1 - Standard series)1959Hepatitis C Screening 1976Hepatitis A Vaccines (1 of 2 - Risk 2-dose series)1977 DTaP/Tdap/Td Vaccines (1 - Tdap)04/28/19802181Zcgcledpg71/28/1998Pneumococcal Vaccine (1 of 1 - PCV)2008Zoster Vaccines (1 of 2)2008Hepatitis B Vaccines (1 of 3 - Risk 3-dose series)2018RSV High Risk: (Elderly (60+) or Population) (1 - Risk 60-74 years 1-dose series)2018Bone Density Scan3Influenza Vaccine (#1)5COVID-19 Vaccine (1 - season)2025Irritable Bowel LytonemfZilcvkujdttx47/06/2019HIB VaccinesAged OutNo longer eligible based on patient's age to complete this topicHPV Vaccines Aged OutNo longer eligible based on patient's age to complete this topicIPV VaccinesAged OutNo longer eligible based on patient's age to complete this topic Meningococcal VaccineAged OutNo longer eligible based on patient's age to complete this topicRotavirus VaccinesAged OutNo longer eligible based on patient's age to complete this topic Procedures Procedure NamePriorityDate/TimeAssociated OfaxofaoqLfwdorqvAHZCetbkye45/06/2019 2:50 PM EDT from Last 3 Months or Most Recently Relevant to Health Maintenance Results * Esophagogastroduodenoscopy (EGD) (11/04/2018 2:50 PM EDT)Anatomical Region LateralityModalityEndoscopySpecimen (Source)Anatomical Location / Laterality Collection Method / VolumeCollection TimeReceived Time11/04/2018 2:50 PM EDT Narrative 11/04/2018 2:50 PM EDT Patient Name: Soumya Gil Procedure Date: 11/04/2018 2:50 PM Date of : 1960 Admit Type: Outpatient Site: [facility] Ethnicity: Not or Race: White Attending MD: Renae Saavedra MD, [id number] Procedure: ? Upper GI endoscopy Indications: ? Cirrhosis rule out esophageal varices Patient Profile: ? This is a 58 year old female. Outpatient EGD Providers: ? Renae Saavedra MD (Doctor), Jaleel Perez RN ? (Nurse), Tyler Mai, Clinical Research Associate Referring: ? Juan F Savage MD Provider Care Team: ?Ludwin Wen II, MD Medicines: ? Monitored Anesthesia Care Complications: ? No immediate complications. Procedure: ? Pre-Anesthesia Assessment: ? - Prior to the procedure, a History and Physical was ? performed, and patient medications and allergies were ? reviewed. The patient's tolerance of previous ? anesthesia was also reviewed. The risks and benefits ? of the procedure and the sedation options and risks ? were discussed with the patient. All questions were ? answered, and informed consent was obtained. Prior ? Anticoagulants: The patient has taken no previous ? anticoagulant or antiplatelet agents. ASA Grade ? Assessment: II - A patient with mild systemic disease. ? After reviewing the risks and benefits, the patient ? was deemed in satisfactory condition to undergo the ? procedure. ? After obtaining informed consent, the endoscope was ? passed under direct vision. Throughout the procedure, ? the patient's blood pressure, pulse, and oxygen ? saturations were monitored continuously. The Endoscope ? was introduced through the mouth, and advanced to the ? third part of duodenum. The upper GI endoscopy was ? accomplished without difficulty. The patient tolerated ? the procedure well. Findings: ? The examined esophagus was normal. ? There is no endoscopic evidence of varices in the distal esophagus. ? Patchy mild inflammation characterized by erosions and erythema was ? found in the gastric antrum. This was biopsied with a cold forceps for ? histology. The pathology specimen was placed into Bottle A. ? The examined duodenum was normal. Estimated Blood Loss: ? Estimated blood loss: none. Impression: ?- Normal esophagus. ? - Gastritis. Biopsied. ? - Normal examined duodenum. Recommendation: ?- Patient has a contact number available for ? emergencies. The signs and symptoms of potential ? delayed complications were discussed with the patient. ? Return to normal activities tomorrow. Written ? discharge instructions were provided to the patient. ? - Resume previous diet. ? - Continue present medications. ? - Await pathology results. ? - Return to liver clinic as previously scheduled. Procedure Code(s): ? --- Professional --- ? 68207, Esophagogastroduodenoscopy, flexible, ? transoral; with biopsy, single or multiple Diagnosis Code(s): ? --- Professional --- ? K29.70, Gastritis, unspecified, without bleeding ? K74.60, Unspecified cirrhosis of liver CPT copyright 2021 [employer]. All rights reserved. The codes documented in this report are preliminary and upon compensation adjuster review may be revised to meet current compliance requirements. Renae Saavedra MD 11/04/2018 3:24:18 PM This report has been signed electronically. Number of Addenda: 0 Note Initiated On: 11/04/2018 2:50 PM Total Procedure Duration Time 0 hours 9 minutes 17 seconds Procedure Note Renae Saavedra MD - 02/24/2025 Patient Name: Soumya Gil Procedure Date: 11/04/2018 2:50 PM Date of : 1960 Admit Type: Outpatient Site: [facility] Ethnicity: Not or Race: White Attending MD: Renae Saavedra MD, [id number] Procedure: Upper GI endoscopy Indications: Cirrhosis rule out esophageal varices Patient Profile: This is a 58 year old female. Outpatient EGD Providers: Renae Saavedra MD (Doctor), Jaleel Perez RN (Nurse), Tyler Mai, Clinical Research Associate Referring: Juan F Savage MD Provider Care Team: Ludwin Wen II, MD Medicines: Monitored Anesthesia Care Complications: No immediate complications. Procedure: Pre-Anesthesia Assessment: - Prior to the procedure, a History and Physicalwas performed, and patient medications and allergieswere reviewed. The patient's tolerance of previous anesthesia was also reviewed. The risks andbenefits of the procedure and the sedation options and risks were discussed with the patient. All questions were answered, and informed consent was obtained. Prior Anticoagulants: The patient has taken no previous anticoagulant or antiplatelet agents. ASA Grade Assessment: II - A patient with mild systemicdisease. After reviewing the risks and benefits, the patient was deemed in satisfactory condition to undergo the procedure. After obtaining informed consent, the endoscope was passed under direct vision. Throughout theprocedure, the patient's blood pressure, pulse, and oxygen saturations were monitored continuously. TheEndoscope was introduced through the mouth, and advanced tothe third part of duodenum. The upper GI endoscopy was accomplished without difficulty. The patienttolerated the procedure well. Findings: The examined esophagus was normal. There is no endoscopic evidence of varices in the distal esophagus. Patchy mild inflammation characterized by erosions and erythema was found in the gastric antrum. This was biopsied with a cold forcepsfor histology. The pathology specimen was placed into Bottle A. The examined duodenum was normal. Estimated Blood Loss: Estimated blood loss: none. Impression: - Normal esophagus. - Gastritis. Biopsied. - Normal examined duodenum. Recommendation: - Patient has a contact number available for emergencies. The signs and symptoms of potential delayed complications were discussed with thepatient. Return to normal activities tomorrow. Written discharge instructions were provided to thepatient. - Resume previous diet. - Continue present medications. - Await pathology results. - Return to liver clinic as previously scheduled. Procedure Code(s): --- Professional --- 75797, Esophagogastroduodenoscopy, flexible, transoral; with biopsy, single or multiple Diagnosis Code(s): --- Professional --- K29.70, Gastritis, unspecified, without bleeding K74.60, Unspecified cirrhosis of liver CPT copyright 2021 [employer]. All rights reserved. The codes documented in this report are preliminary and upon compensation adjuster reviewmay be revised to meet current compliance requirements. Renae Saavedra MD 11/04/2018 3:24:18 PM This report has been signed electronically. Number of Addenda: 0 Note Initiated On: 11/04/2018 2:50 PM Total Procedure Duration Time 0 hours 9 minutes 17 seconds Authorizing ProviderResult TypeResult StatusJuan F Savage MDENDOSCOPY PROCEDURE ORDERABLESEdited Result - Final from Last 3 Months or Most Recently Relevant to Health Maintenance Care Teams Team MemberRelationshipSpecialtyStart DateEnd Date Gaetano Torres MD PCP - General07/24/22
--- OUTSIDE RECORDS SUMMARY | 2025-04-22 08:14 | XMS_ITS | Clinical Summary ---
Author Organization [facility] Address [address] [place] [address] Care Team Providers Care Business Mail Entry Clerk Name Role Phone Behzad RIVERA MD, Ludwin Pendleton Primary Care Provider [phone] Allergies Active AllergyReactionsCriticalityNoted VjedDmabnzcgLplcfwlaictoYmhu70/03/2014 Medications MedicationSigDispense QuantityRefillsLast FilledStart DateEnd DateStatus SINEMET CR 25 MG-100 MG ORAL TBSR 2 tabs at HSActive BIPAP Indications:Spinal stenosis in cervical region,Type II or unspecified type diabetes mellitus without mention of complication, not stated as uncontrolled, Coronary atherosclerosis of unspecified type of vessel, rincon or graft,Chest pain, unspecified,Other specified pre-operative oxwvuwmtxpr27DA/22CM NIGHTLY0 10/19/2006ctive modafinil (PROVIGIL) 200 mg ORAL Tab Indications:Spinal stenosis in cervical region,Type II or unspecified type diabetes mellitus without mention of complication, not stated as uncontrolled, Coronary atherosclerosis of unspecified type of vessel, rincon or graft,Chest pain, unspecified,Other specified pre-operative examinationTake one(1) tablet daily in the morning.ctive ropinirole (REQUIP) 0.5 mg ORAL Tab Indications:Spinal stenosis in cervical region,Type II or unspecified type diabetes mellitus without mention of complication, not stated as uncontrolled, Coronary atherosclerosis of unspecified type of vessel, rincon or graft,Chest pain, unspecified,Other specified pre-operative examination2 mg vuafx030 Active COMPOUNDED PRESCRIPTION Indications:Spinal stenosis in cervical region,Type II or unspecified type diabetes mellitus without mention of complication, not stated as uncontrolled, Coronary atherosclerosis of unspecified type of vessel, rincon or graft,Chest pain, unspecified,Other specified pre-operative examinationCALCIUM 1200MG PLUS VITAMIN D Take one(1) tablet two(2) times daily.ctive potassium chloride 10 mEq ORAL TbSR Take one(1) tablet daily.ctive hydroxychloroquine sulfate(PLAQUENIL 200 MG TAB) Indications:Spinal stenosis in cervical region,Type II or unspecified type diabetes mellitus without mention of complication, not stated as uncontrolled, Coronary atherosclerosis of unspecified type of vessel, rincon or graft,Chest pain, unspecified,Other specified pre-operative examinationTake one(1) tablet daily.ctive morphine sulfate(MS CONTIN 30 MG TAB) Take one(1) tablet two(2) times daily.ctive fluticasone propionate(FLONASE 50 MCG/ACTUATION NASAL SPRAY) 2 PUFFS TWICE [id number] COMPOUNDED PRESCRIPTION rotuxin 0 ctive OXYCODONE-ACETAMINOPHEN 5-325 mg tablet four times daily as needed.07/09/2013ctive ALPRAZOLAM 0.5 mg tablet three times daily as needed.06/30/2013ctive CITALOPRAM 40 mg tablet once daily.07/04/2013ctive ADVAIR DISKUS 500-50 mcg/dose dsdv twice daily.07/04/2013ctive TIZANIDINE 4 mg tablet twice daily.06/10/2013ctive FUROSEMIDE 20 mg tablet once daily.07/25/2013ctive Pregabalin (LYRICA) 200 mg capsule Take 200 mg by mouth three times daily.Active exenatide (BYDUREON) 2 mg ER subcutaneous injection vial Inject subcutaneously once each week.Active docusate sodium (COLACE) 100 mg capsule Take 100 mg by mouth once daily.Active varenicline (CHANTIX) 1 mg tablet Take 1 mg by mouth twice daily.Active glimepiride (AMARYL) 4 mg tablet Take 4 mg by mouth twice daily with meals.Active leflunomide (ARAVA) 20 mg tablet Take 20 mg by mouth once daily.Active rosuvastatin (CRESTOR) 20 mg tablet Take 20 mg by mouth once daily.Active tolterodine ER (DETROL LA) 4 mg 24 hr capsule Take 4 mg by mouth once daily.Active estradiol (ESTRACE) 0.01 % (0.1 mg/gram) vaginal cream Use 1 g vaginally as directed. Use daily x 2 weeks and then 2-3 times per week as directed. May apply with finger. 1 Tube Active Active Problems ProblemNoted DateDiagnosed DateSUI (stress urinary incontinence, female) 07/19/2017 Overview (07/19/2017): Added automatically from request for surgery [id number] Anxiety and nukchslgkh46/03/2014Urinary fnfflcgqzyve84/03/2014Coronary atherosclerosis of unspecified type of vessel, rincon or graft08/30/2007Type II or unspecified type diabetes mellitus without mention of complication, not stated as /29/2008Nonspecific abnormal findings on radiological or other examinations of the aleqzo8712/01/2004Rheumatoid arthritis Overview (08/04/2013): rheumatoid arthritis Multiple sclerosis Overview (08/04/2013): Multiple sclerosis COPD (chronic obstructive pulmonary disease) Overview (08/04/2013): COPD HTN (hypertension) Overview (08/04/2013): Hypertension Hyperlipidemia Overview (08/04/2013): hyperlipidemia CAD (coronary artery disease) Overview (08/04/2013): CAD: mild disease. [facility] was 12/26/05: No intervention. stable DM (diabetes mellitus) Overview (08/04/2013): borderline diabetes- : on glucophage DJD (degenerative joint disease) Overview (08/04/2013): degenerative joint disease Sleep apnea Overview (08/04/2013): sleep apnea CVA (cerebral infarction) Overview (08/04/2013): stoke- mini strokes Depression Overview (08/04/2013): depression RLS (restless legs syndrome) Overview (08/04/2013): restless leg syndrome MigraineDDD (degenerative disc disease)Lumbar radiculopathyCervical radiculopathyPeripheral neuropathySmokerChronic pain Resolved Problems ProblemNoted DateDiagnosed DateResolved DateErosion of vaginal mesh07/19/2017 08/03/2017 Overview (07/19/2017): Added automatically from request for surgery [id number] Family History Medical HistoryRelationCommentsEmphysemaBrotherHeartFatherbrain aneurysmMother CancerOtherno known family h/o ovarian cancerBreast CancerPaternal Aunt diagnosised age 45RelationStatusCommentsBrotherFatherDeceasedMotherDeceasedOther Paternal Aunt Social History Tobacco UseTypesPacks/DayYears UsedDateSmoking Tobacco: FormerCigarettes0.332 1981 - 2013Smokeless Tobacco: Never Tobacco Cessation:Ready to Q uit: No; Counseling Given: Yes Alcohol UseStandard Drinks/WeekCommentsNo0 (1 standard drink = 0.6 oz pure alcohol)Area Deprivation IndexAnswerDate RecordedNational Score (1-100), lower number is lower riskNot on file06/07/2020State Score (1-10), lower number is lower riskNot on file06/07/2020Data from: https://www.neighborhoodatlas.medicine.[facility].edu/. Last address used for calculationNot on file06/07/2020CommentsNoSex and Gender Information ValueDate RecordedSex Assigned at BirthNot on fileLegal ImxBaecol85/02/2012 9:00 AM ESTGender IdentityNot on fileSexual OrientationNot on file Last Filed Vital Signs Vital SignReadingTime TakenCommentsBlood Zgjirepz036/6003 11:58 AM EDT Sijaq3885/02/2018 11:00 AM IVCQflpzgrrlzr84.8 ??C (98.2 ??F)08/03/2017 9:19 AM ESTRespiratory Ujxu887008/03/2017 11:00 AM ESTOxygen Dmvbvtrlcd51%08/03/2017 11:00 AM ESTInhaled Oxygen Concentration--Pkcxmi346.6 kg (224 lb)09/13/2017 11:58 AM BADLhdagw763.6 cm (5' 6 )09/13/2017 11:58 AM EDTBody Mass Index36.15009/13/2017 11:58 AM EDT Plan of Treatment Health MaintenanceDue DateLast DoneCommentsAnxiety Taxufypig08/28/1976Depression Cvnfybkhu63/28/1976Hepatitis C Uyjlaerqz13/28/1976DTaP,Tdap,Td Vaccine (1 - Tdap)1977Mammogram Skguvyhyk92/28/1998CT Zijyekpizgje77/28/2003Cologuard (FIT-DNA)2003Fecal Occult Blood2003Lipid Tpsvinutb94/28/2003 Mmzrzktvlqdpa03/28/2452Jretcqatbpy67Colorectal Cancer Uicksksbk02/16/2008Pneumococcal Vaccine: 50+ (1 of 1 - PCV)2008Shingrix Vaccine (1 of 2)2008Diabetes Frkhcsbik91, 08/30/2007, 10/19/2006Bone Density Fvobhwtkl94/28/2023dvance Directive Opwkxxajon60/01/2025 Covid-19 Vaccine (1 - season)2025Influenza Vaccine (#1)2025 RSV Vaccine (1 - 1-dose 75+ series)2033 Procedures Procedure NamePriorityDate/TimeAssociated DiagnosisCommentsBASIC METABOLIC PANEL Qubnsvg2808/02/2017 3:35 PM EST Pre-op testing KRDBAIGUPNN02/16/2007 from Last 3 Months or Most Recently Relevant to Health Maintenance Results * (ABNORMAL) BASIC METABOLIC PNL (08/02/2017 3:35 PM EST)ComponentValueRef Range Test MethodAnalysis TimePerformed AtPathologist ByayykrytAvcfnvd360(H)74 - 99 mg/dL08/03/2017 12:11 PM ESTOHIOHEALTH [facility] MAIN LABORATORYComment: The [place] [employer] Association (ADA) provides guidance for cutoff values for fasting glucose and random glucose. The ADA defines fasting as no caloric intake for at least 8 hours. Fasting plasma glucose results between 100 to 125 mg/dL indicate increased risk for diabetes (prediabetes). Fasting plasma glucose results greater than or equal to 126 mg/dL meet the criteria for diagnosis of diabetes. In the absence of unequivocal hyperglycemia, results should be confirmed by repeat testing. In a patient with classic symptoms of hyperglycemia or hyperglycemic crisis, random plasma glucose results greater than or equal to 200 mg/dL meet the criteria for diagnosis of diabetes. Reference: Standards of Medical Care in Diabetes 2016, [place] [employer] Association. Diabetes Care. 2016.39(Suppl 1). UZN224 - 21 mg/dL08/03/2017 12:11 PM [facility] Creatinine0.630.58 - 0.96 mg/dL08/03/2017 12:11 PM [facility] YYRRPUQGWREpdinr822084 - 144 mmol/L08/03/2017 12:11 PM [facility] LABORATORYPotassium3.5(L)3.7 - 5.1 mmol/L08/03/2017 12:11 PM [facility] HLCOACSACCQnmvfvzj52356 - 105 mmol/L08/03/2017 12:11 PM [facility] YTKNKSTMCNCC62689 - 30 mmol/L08/03/2017 12:11 PM [facility] LABORATORYAnion Xan852 - 18 mmol/L08/03/2017 12:11 PM [facility] LABORATORYCalcium9.48.5 - 10.2 mg/dL08/03/2017 12:11 PM [facility] LABORATORYeGFR->6002 12:11 PM [facility] LABORATORYeGFR-All Other Races>60.08/03/2017 12:11 PM [facility] LABORATORYComment: eGFR (Estimated GFR) Units of measure: mL/min/1.73 meters squared eGFR is derived from the reexpressed MDRD Study equation using the following parameters: serum creatinine, age, gender and race. The creatinine assay has been calibrated to be traceable to IDMS. An eGFR <60 mL/min/1.73m2 for >3 months is consistent with chronic kidney disease. Refer to KDOQI guidelines for clinical interpretation. In patients with unstable renal function, e.g. those with acute kidney injury, the eGFR may not accurately reflect actual GFR. Specimen (Source)Anatomical Location / LateralityCollection Method / Volume Collection TimeReceived TimeBlood specimen (specimen)BLOOD SPECIMEN / Unknown 08/02/2017 3:35 PM EST08/02/2017 3:41 PM EST Narrative Authorizing ProviderResult TypeResult StatusAbigapatricia Sadler APRN.CNPLABORATORY Final ResultPerforming OrganizationAddressCity/State/ZIP CodePhone Number [facility] [address] [place] [address] * COLONOSCOPY (08/17/2006)ComponentValueRef RangeTest MethodAnalysis Time Performed AtPathologist SignatureTranscriptionIndications: Abdominal pain. Constipation. (564.00) Consent: ??The benefits, risks, alternatives, and personnel associated with the procedure were discussed and informed consent was obtained from the patient. Preparation: ??Pulse, pulse oximetry and blood pressure were monitored throughout the procedure. Medications: Demerol 100 mg IV before the procedure Versed 4 mg IV throughout the procedure Rectal Exam: Procedure: ??The endoscope was passed with difficulty through the anus under direct visualization and advanced to the cecum, confirmed by appendiceal orifice, cecal strap (muscogee's foot), and ileocecal valve. The scope was withdrawn and the mucosa was carefully examined. ??A staff physician was present for the entire procedure from the insertion to the removal of the scope, a resident was not present during the procedure. Findings: ??The colonoscopy examination was completely normal. Unplanned Events: There were no unplanned events. Estimated Blood Loss: None. Recommendations: Repeat colonoscopy recommended in 5 years. Impression: ?? Normal colonoscopy. Procedure Codes: 62970: Colonoscopy : Version 1, electronically signed by Dr. Mundo Colin on 08/17/2006 at 15:07. [facility] LABSpecimen (Source)Anatomical Location / LateralityCollection Method / VolumeCollection TimeReceived Time08/17/2006 Narrative [facility] - 08/17/2006 3:07 PM EST Ordered by an unspecified provider. Authorizing ProviderResult TypeResult StatusCcf ProviderSCHEDULED PROCEDURES Final ResultPerforming OrganizationAddressCity/State/ZIP CodePhone Number [facility] [address] [place] [address] from Last 3 Months or Most Recently Relevant to Health Maintenance Insurance * Guarantor: Michael Gil TypeRelation to PatientDate of BirthPhone Billing AddressPersonal/PwcmuzBfjo71/ [address] [address] Care Teams Team MemberRelationshipSpecialtyStart DateEnd Ludwin Wen II, MD [address] [facility] [address] [place] [address] [facility]10/19/06
--- OUTSIDE RECORDS SUMMARY | 2025-04-22 08:14 | XMS_ITS | Clinical Summary ---
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 Role Phone Ludwin Wen MD Primary Care Provider [phone] Allergies Active AllergyReactionsCriticalityNoted DateCommentsMeclizineOther (See Comments)11/02/2023 PROLONGED QT Pdkglzobe84/09/2023 Other Reaction(s): Heightened Sense of Smell Bupropion Hcl04/04/2021 Other reaction(s): Heightened Sense of Smell CitalopramOther (See Comments)11/02/2023 PROLONGED QT KyoqtmlfuzGczb91/23/2023 stroke BmduuakayyUawg42/23/2023 stroke Fmusuluhthai03/15/2023Metoprolol TartrateOther (See Comments)11/02/2023 PROLONGED QT HydroxychloroquineOther (See Comments)11/02/2023 PROLONGED QT Ondansetron HclOther (See Comments)11/02/2023 PROLONGED QT Medications MedicationSigDispense QuantityRefillsLast FilledStart DateEnd DateStatus docusate sodium (COLACE) 50 mg capsule Take 2 capsules (100 mg total) by mouth once daily.Active albuterol (PROVENTIL HFA;VENTOLIN HFA) 90 mcg/actuation inhaler Inhale 2 puffs every 4 (four) hours as needed.Active diclofenac sodium (VOLTAREN) 1 % gel Apply 4 g topically 4 (four) times a day. To affected jointsActive fluticasone propionate (FLONASE ALLERGY RELIEF) 50 mcg/actuation nasal spray Administer 2 sprays into each nostril once daily.Active leflunomide (ARAVA) 20 mg tablet Take 1 tablet (20 mg total) by mouth once daily.Active modafiniL (ProvigiL) 200 mg tablet Take 1 tablet (200 mg total) by mouth once daily.Active morphine (MS CONTIN) 30 mg 12 hr tablet Take 1 tablet (30 mg total) by mouth in the morning and at bedtime.09/15/2022 Active JANUVIA 100 mg tablet Take 1 tablet (100 mg total) by mouth in the morning.07/14/2022ctive potassium chloride (KLOR-CON SPRINKLE) 10 MEQ CR capsule Take 1 capsule (10 mEq total) by mouth once daily. With food 30 capsule 6010/23/2022ctive aspirin 81 mg Take 1 tablet (81 mg total) by mouth in the morning.Active rituximab (RITUXAN IV) Infuse into a venous catheter every 6 (six) months.Active furosemide (LASIX) 20 mg tablet TAKE 1 TABLET BY MOUTH EVERY DAY 90 tablet ctive lisinopriL (PRINIVIL,ZESTRIL) 20 mg tablet Take 1 tablet (20 mg total) by mouth in the morning. 30 tablet ctive Additional Information Patient taking differently:20 mg oral2 times daily, Reported on 11/02/2023 sucralfate (CARAFATE) 1 gram tablet Take 1 tablet (1 g total) by mouth in the morning and 1 tablet (1 g total) at noon and 1 tablet (1 g total) in the evening. 30 tablet ctive pantoprazole (PROTONIX) 40 mg EC tablet Take 1 tablet (40 mg total) by mouth in the morning and 1 tablet (40 mg total) in the evening. Takebefore meals. 60 tablet 09/13/2023ctive FLUoxetine (PROzac) 40 mg capsule Take 1 capsule (40 mg total) by mouth in the morning.09/27/2023ctive Active Problems ProblemNoted DateDiagnosed DverFfpriendhbonyhnrjte46/09/2024rolonged QT /08/2023Heart failure with reduced ejection wvvfhhyt21/ Essential nocpxukxdgaj00/24/2236Jmdxxkudmwvz08/24/2023ardiogenic shock 10/01/2022NSTEMI (non-ST elevated myocardial infarction)09/29/2022cute coronary urxvrysg01/31/2023 Overview (09/29/2022): Added automatically from request for surgery [id number] Coronary artery vmpnryw6909/29/2022 Overview (10/03/2022): Added automatically from request for surgery [id number] Immunizations ImmunizationAdministration DatesNext DueCOVID-19, mRNA, LNP-S, PF, 100mcg/0.5mL Dose12/06/2020,11/08/2020Influenza Split Preservative Free ID06/02/2019, 04/29/2018,06/06/2017,03/11/2015,06/20/2010Influenza, High-dose, Quadrivalent 04/30/2023Influenza, Im Trivalent Icuvsycfkskn30/03/2014Influenza, Injectable, Rwwuizlwmftn70/04/2021Influenza, Injectable, quadrivalent (PF)06/15/2022, 05/17/2020Pneumococcal Conjugate 13-Qsyzrq9309/08/2015,06/01/2015Pneumococcal Dacrsnncisybql53/22/2022,09/14/2009 Family History Medical HistoryRelationNameCommentsHeart diseaseFatherStrokeMotherRelationName StatusCommentsFatherDeceasedMotherDeceased Social History Tobacco UseTypesPacks/DayYears UsedDateSmoking Tobacco: FormerCigarettesQuit: 2016Smokeless Tobacco: NeverAlcohol UseStandard Drinks/WeekCommentsNot Currently 0 (1 standard drink = 0.6 oz pure alcohol)[facility] UtilitiesAnswerDate RecordedIn the past 12 months has the [employer], gas, oil, or water [employer] threatened to shut off services in your home?Yes4AUDIT-CAnswerDate RecordedQ1: How often do you have a drink containing alcohol?Never09/08/2023Q2: How many drinks containing alcohol do you have on a typical day when you are drinking?Patient does not drink09/08/2023Q3: How often do you have six or more drinks on one occasion?Never09/08/2023Overall Financial Resource Strain (CARDIA)AnswerDate RecordedHow hard is it for you to pay for the very basics like food, housing, medical care, and heating?Not hard at all09/08/2023HQ-2AnswerDate RecordedTotal Aurcf1678/09/2024RAPARE - TransportationAnswerDate RecordedIn the past 12 months, has lack of transportation kept you from medical appointments or from getting medications?Yes09/08/2023In the past 12 months, has lack of transportation kept you from meetings, work, or from getting things needed for daily living?Yes09/08/2023Housing InstabilityAnswerDate RecordedAre you worried or concerned that in the next two months you may not have stable housing that you own, rent or stay in as a part of a household?No09/08/2023hildcareAnswer Date CuwzygzxRumpkzbblFiujsbr81/12/2019EmploymentAnswerDate RecordedEmployment Jhetven6712/11/2018Hunger ScreeningAnswerDate RecordedWithin the past 12 months we worried whether our food would run out before we got money to buy more.Never True11/02/2023Within the past 12 months the food we bought just didn't last and we didn't have money to get more.Never True11/02/2023CommentsNoSex and Gender InformationValueDate RecordedSex Assigned at BirthNot on fileLegal Sex Uimkpm2802/04/2015 12:02 PM EDTGender IdentityNot on fileSexual OrientationNot on file Last Filed Vital Signs Vital SignReadingTime TakenCommentsBlood Qkasznma960/8811/02/2023 2:38 PM EDT Jfrtp123311/02/2023 2:38 PM KKWKxckbroegjx22.8 ??C (98.3 ??F)09/13/2023 11:35 AM EDTRespiratory Nvmk419409/13/2023 11:35 AM EDTOxygen Lcvgwdbtti29%11/02/2023 2:38 PM EDTInhaled Oxygen Concentration--Jhzxcw23.7 kg (189 lb)11/02/2023 2:38 PM EDT Qcsfuq924.6 cm (5' 6 )11/02/2023 2:38 PM EDTBody Mass Index30.51011/02/2023 2:38 PM EDT Plan of Treatment Health MaintenanceDue DateLast DoneCommentsStatin Use: Iqlparzdilfypi1958 DTaP,Tdap and Td Vaccines (1 - Tdap)1977Zoster (Shingles) Vaccine (1 of 2) 2008Fall Risk Bbuykwfut27/28/2023epression Hihpkiofr28/03/2024 Adult BMI Seucqyszv19/08/2023Tobacco Aplzagjme84/08/2023 COVID-19 Vaccine ( season)/12/2020, 11/08/2020Influenza Fgrtmal29/, 06/15/2022, 04/04/2021, Additional history exists Goals GoalPatient Goal TypeAssociated ProblemsRecent ProgressPatient-Stated?Author Home Alanna Moore, [employer]LECT[employer]ER Note: Evaluation of progress towards goal: self care, family support Medical Devices [place] [address] Advance Directives * Full Code (Latest Code Status on File) Date ActivatedDate InactivatedComments09/08/2023 3:41 PM09/13/2023 9:06 PM * Full Code Date ActivatedDate InactivatedComments01/21/2023 10:12 PM01/24/2023 6:24 PM * Full Code Date ActivatedDate InactivatedComments09/29/2022 6:38 AM10/09/2022 8:04 PM Care Teams Team MemberRelationshipSpecialtyStart DateEnd Date Ludwin Wen MD PCP - GeneralInternal Medicine07/16/22
--- OUTSIDE RECORDS SUMMARY | 2025-04-22 08:14 | XMS_ITS | Clinical Summary ---
Author Organization [facility] Address [address] [place] [address] Care Team Providers Care Collections Representative Name Role Phone Ludwin Wen MD Primary Care Provider [phone] Ludwin Wen MD Unavailable [phone] Allergies Active AllergyReactionsCriticalityNoted QjitTjoiamlwWmgropgfpeLkcc78/23/2023 stroke Gzkosvzdu61/09/2023 Other Reaction(s): Heightened Sense of Smell GdcdyyyufjAhhgg01/24/2024 PROLONGED QT Heart issues WdcvmyagiwElwk87/23/2023 stroke RumrukmauiqniqjessCofkr81/03/2024 PROLONGED QT LevofloxacinUnknown,UzciPxv6608/04/20139297UghzbcqmtZyapm50/24/2024 PROLONGED QT Heart issues HrkwmbkdyvEpose13/24/2024 PROLONGED QT XacfyslygotYlqad71/24/2024 PROLONGED QT Prolonged QT Medications MedicationSigDispense QuantityRefillsLast FilledStart DateEnd DateStatus albuterol HFA (ProAir HFA) 90 mcg/act inhaler Inhale 2 puffs every 4 (four) hours if needed.Active riTUXimab (RITUXAN IV) every 6 (six) months. WITH QQZWCVAWPBTT41/23/2012ctive aspirin 81 MG EC tablet Take 81 mg by mouth in the morning.10/09/2022ctive fluticasone (Flonase) 50 MCG/ACT nasal spray Administer 2 sprays into each nostril in the morning.Active leflunomide (Arava) 20 MG tablet Take 20 mg by mouth in the morning.Active senna-docusate (Lidia-Colace) 8.6-50 MG tablet Take 1 tablet by mouth 2 (two) times a day as needed for constipation.10/09/2022 Active pantoprazole (ProtoNix) 40 MG EC tablet Take 40 mg by mouth in the morning and 40 mg in the evening. Take before meals. 09/13/2023ctive lisinopril 20 MG tablet Take 20 mg by mouth DailyActive lactulose (Chronulac) 10 GM/15ML solution Take 10 g by mouth in the morning and 10 g at noon and 10 g in the evening. 04/30/2024ctive cholecalciferol (Vitamin D-3) 25 MCG (1000 UT) capsule Indications:Vitamin D deficiencyTake 1 capsule (25 mcg) by mouth Daily 100 capsule 4Active [facility] Stool Softener 100 MG capsule Indications:Drug-induced constipationTAKE 1 CAPSULE (100 MG) BY MOUTH IN THE MORNING 100 capsule 5Active potassium chloride ER (Micro-K) 10 MEQ ER capsule Indications:HypokalemiaTAKE 1 CAPSULE BY MOUTH EVERY DAY 90 capsule 5Active modafinil (Provigil) 200 MG tablet Indications:Attention deficit disorder without hyperactivityTake 1 tablet (200 mg) by mouth Daily 30 tablet 5Active SITagliptin (Januvia) 100 MG tablet Indications:Type 2 diabetes mellitus with hyperglycemia, unspecified whether senior living insulin use (HCC)Take 1 tablet (100 mg) by mouth Daily 90 tablet 5Active FLUoxetine (PROzac) 40 MG capsule Indications:Moderate major depression, single episode (HCC)TAKE 1 CAPSULE BY MOUTH EVERY MORNING 100 capsule 5Active finerenone (Kerendia) 10 MG tablet Take 10 mg by mouth DailyActive carvedilol (Coreg) 6.25 MG tablet Indications:Essential hypertensionTake 1 tablet (6.25 mg) by mouth in the morning and 1 tablet (6.25 mg) in the evening. Take with meals. 200 tablet 5Active furosemide (Lasix) 20 MG tablet Indications:Heart failure with reduced ejection fraction (HCC)TAKE 1 TABLET BY MOUTH EVERY DAY 90 tablet 5Active oxyCODONE (Roxicodone) 5 MG immediate release tablet Indications:Rheumatoid arthritis involving multiple sites with positive rheumatoid factor (HCC)Take 1 tablet (5 mg) by mouth every 12 (twelve) hours if needed for severe pain 60 tablet tive rosuvastatin (Crestor) 10 MG tablet Indications:Mixed hyperlipidemiaTake 1 tablet (10 mg) by mouth Daily 30 tablet 111516Active dapagliflozin (Farxiga) 10 MG Indications:Type 2 diabetes mellitus with hyperglycemia, with long-term current use of insulin (HCC)Take 1 tablet (10 mg) by mouth Daily 90 tablet 3105Active glucose blood (OneTouch Ultra) test strip Indications:Type 2 diabetes mellitus with hyperglycemia, with long-term current use of insulin (HCC)1 each by Other route in the morning and 1 each before bedtime. 100 each tive atorvastatin (Lipitor) 40 MG tablet Take 40 mg by mouth at bedtime.Discontinued glucose blood (OneTouch Ultra) test strip 1 each by Other route in the morning and 1 each before bedtime.04/17/2025 Discontinued(Reorder) furosemide (Lasix) 20 MG tablet Indications:Heart failure with reduced ejection fraction (HCC)Take 1 tablet (20 mg) by mouth Daily 90 tablet Discontinued oxyCODONE (Roxicodone) 5 MG immediate release tablet Indications:Rheumatoid arthritis involving multiple sites with positive rheumatoid factor (HCC)Take 1 tablet (5 mg) by mouth every 12 (twelve) hours if needed for severe pain 60 tablet Discontinued(Reorder) Active Problems ProblemNoted DateDiagnosed DateType 2 diabetes mellitus with other specified bepqkdcnbfht95/03/2025Drug-induced hzdsghuitmaz02/02/2024Heart failure with reduced ejection mhmunics10/24/2023erebral /21/2023 Overview (12/20/2022): stoke- mini strokes DJD (degenerative joint disease)12/20/2022 Overview (12/20/2022): degenerative joint disease Rrcotmob75/21/2023Multiple /21/2023 Overview (12/20/2022): Multiple sclerosis Peripheral vdozwbhrlw65/21/2023RLS (restless legs syndrome)12/20/2022 Overview (12/20/2022): restless leg syndrome Sleep apnea12/20/2022 Overview (12/20/2022): sleep apnea DDD (degenerative disc disease), onvssp3911/20/2022Lumbar disc herniation 11/20/2022Lumbar xpgzmtxuqfwha65/22/2023OPD (chronic obstructive pulmonary disease)11/20/2022 Overview (11/20/2022): COPD Atherosclerotic heart disease of [place] coronary artery without angina pectoris 11/07/2022arpal tunnel syndrome, unspecified upper limb11/07/2022ervical fhiuppadycvlk05/09/2023holelithiasis without /09/2023hronic fatigue ketzivkq92/09/2023hronic obstructive pulmonary egygjxy1611/07/2022 Essential (primary) mqxjbhisrunl61/09/2023Fatty liver11/07/2022History of jofqiavckhfg73/09/2023Hyperglycemia due to type 2 diabetes sospcnvf33/09/2023 Lung nodule, wxhvteqm89/09/2023Mixed pmjyvxbugzhbhl73/09/2023Moderate major depression, single imrjfer0211/07/2022Non-seasonal allergic jyinxiku84/09/2023 Obesity (BMI 30-39.9)11/07/2022OSA (obstructive sleep apnea)11/07/2022Osteopenia 11/07/2022Other chronic pain11/07/2022Other primary ovarian hrfpsun2311/07/2022 Peripheral vascular bounasb0711/07/2022Raynaud's phenomenon without gangrene 11/07/2022Rheumatoid ulultqsdd97/09/2023 Overview (12/20/2022): rheumatoid arthritis Oiljpqre77/09/2023Vitamin D mufktgwnrn48/09/1739Cgzsprcgstyo48/24/2023 Cardiogenic shock10/01/2022cute coronary bfagbvke54/31/2023 Overview (12/20/2022): Added automatically from request for surgery [id number] NSTEMI (non-ST elevated myocardial infarction)09/29/2022Multiple nodules of lung 10/06/2020ttention deficit disorder without /04/2019Former fzdhuq2112/09/2018Carpal tunnel llyotele77/23/2019Long term current use of insulin 11/21/2018Mononeuropathy due to type 2 diabetes /23/2019Peripheral vascular disorder due to diabetes sfqfrqop18/23/2019SUI (stress urinary incontinence, female)07/19/2017 Overview (12/20/2022): Added automatically from request for surgery [id number] Faxlqth7212/23/2015Intervertebral disc mhnlfpun69/17/2015therosclerosis of coronary artery without angina tpqiyjuq82/13/2015nxiety and depression 08/04/2013 Overview (12/20/2022): depression Urinary hwhocoepgvzb76/03/2014Coronary rdngqbrbizfrome12/29/2008 Overview (11/20/2022): CAD: mild disease. [facility] was 12/26/05: No intervention. stable Added automatically from request for surgery [id number] Abnormal findings on diagnostic imaging of mnritk2012/01/2004 Resolved Problems ProblemNoted DateDiagnosed DateResolved DateTobacco dependence syndrome /08/20233292Fsjadi90reast cancer screening by gsdctcfwg23Essential cqxvmfirskru29ttention deficit disorder (ADD) without kanaatziiosod61Non-pressure chronic ulcer of other part of right foot with necrosis of aaxgos1311/07/2022 09/01/2024Poorly controlled diabetes pdjfrpcj74Type 2 diabetes mellitus with foot ulcerSinusitisUlcer of foot due to type 2 diabetes uknbguzs36Type 2 diabetes xgowitrb21 Overview (11/20/2022): borderline diabetes- : on glucophage Type 2 diabetes mellitus without nkrvgpjrdegke11ontrolled type 2 diabetes mellitus with complication, with long-term current use of kuvvozl98 Encounters DateTypeDepartmentCare ZdpiFciiewdfito45/17/2025 9:15 AM EDTOffice Visit [facility] [place] [facility] [address] [place] [phone] Ludwin Wen MD Rheumatoid arthritis involving multiple sites with positive rheumatoid factor (HCC) (Primary Dx); Type 2 diabetes mellitus with hyperglycemia, with long-term current use of insulin ([facility]); Essential hypertension; Mixed hyperlipidemia; Atherosclerosis of [place] coronary artery of [place] heart without angina /17/2025amboo [facility]sheet [facility] [address] [place] [phone] Ludwin Wen MD 04/17/20251340Tzyiwi78/29/2025 3:30 PM EDTOffice Visit [facility] [address] [place] [phone] Ludwin Wen MD Type 2 diabetes mellitus with other specified complication, without long-term current use of insulin (HCC); Rheumatoid arthritis involving multiple sites with positive rheumatoid factor ([facility]); Flu vaccine need03/30/2025amboo flowsheet [facility] [address] [facility] [address] [place] [address] Ludwin Wen MD 03/30/20250009Nzpfty18/28/2025Refill [facility] [address] [place] [address] Eyal Metcalf, DON Heart failure with reduced ejection fraction (HCC)03/06/2025[facility] [address] [place] [phone] Ludwin Wen MD Rheumatoid arthritis involving multiple sites with positive rheumatoid factor (HCC)01/29/2025Telephone [facility] [address] [facility] [address] [place] [phone] Ludwin Wen MD Med Refillfrom Last 3 Months Immunizations ImmunizationAdministration DatesNext DueInfluenza, High Dose Seasonal, Preservative Free03/30/2025Influenza, High-dose Seasonal, Quadrivalent, Preservative Free04/30/2023Influenza, injectable, pknkkmbrvyaw77/04/2021 Influenza, injectable, quadrivalent, preservative free06/15/2022,05/17/2020 Influenza, seasonal, sijqjnlngb98/03/2014Influenza, seasonal, intradermal, preservative free06/02/2019,04/29/2018,06/06/2017,03/11/2015,06/20/2010 Pneumococcal Conjugate PCV 1303/03/2016,06/01/2015Pneumococcal Polysaccharide CZUJ5263/,09/14/2009 Family History Medical HistoryRelationNameCommentsMental illnessFatherStrokeFatherNo Known ProblemsNephewdeceased 2RelationNameStatusCommentsFatherDeceasedMother DeceasedNephewDeceased Social History Tobacco UseTypesPacks/DayYears UsedDateSmoking Tobacco: FormerCigarettes1.545 1970 - 2014Smokeless Tobacco: CurrentLast attempted to quit: 07/02/2014 Tobacco Cessation:Ready to Q uit: No Comments:Stopped smoking 2014 Alcohol UseStandard Drinks/WeekCommentsNever0 (1 standard drink = [...] relatives?Twice a week05/10/2023How often do you attend faith or congregation services?Never05/10/2023o you belong to any clubs or organizations such as faith groups, unions, fraternal or athletic groups, or school groups?No 05/10/2023How often do you attend meetings of the clubs or organizations you belong to?Never05/10/2023re you , , , , never , or living with a partner?Bqdbnqvl82/09/2023UDIT-CAnswerDate Recorded Q1: How often do you have [...] hard at all05/10/2023HQ-2AnswerDate Recorded Patient Health Questionnaire-2 Nmwfh146Fin[facility] [place] of Occup[facility] Health - Occupational Stress QuestionnaireAnswerDate [...] steady place to sleep or slept in ashelter (including now)?No 05/10/2023CommentsUnknownSex and Gender InformationValueDate RecordedSex Assigned at BirthNot on fileLegal IvvKlyhjs35/15/2023 6:45 PM EDTGender Identity Not on fileSexual OrientationNot on file Last Filed Vital Signs Vital SignReadingTime TakenCommentsBlood Qnchdlxq813/7604/17/2025 9:13 AM EDT Xmrus2034 9:13 AM CDUQqljtcrpmyn33.3 ??C (99.1 ??F)09/01/2024 10:57 AM ESTRespiratory Ehyz496609/01/2024 10:57 AM ESTOxygen Uszlniqnyz40%04/17/2025 9:13 AM EDTInhaled Oxygen Concentration--Pnubzh49.3 kg (210 lb)04/17/2025 9:13 AM EDT Jaqqql431.6 cm (5' 6 )04/17/2025 9:13 AM EDTBody Mass Index33.8904/17/2025 9:13 AM EDT Plan of Treatment DateTypeDepartmentCare Team (Latest Contact Info)Uvhmdcboocz24/17/2025 9:00 AM ESTOffice Visit [facility] [place] [facility] [address] [facility] [address] [place] [address] Ludwin Wen MD [address] [facility] [address] [place], [place] [phone] Health MaintenanceDue DateLast DoneCommentsCT Xyavfurgnohh1958Colonoscopy 1958FIT-DNA1958FOBT1958Lung Cancer Screening Shared Decision Uoolij44 1960 8548Mifwabscftkjq1958Colorectal Cancer Tzkugtjqg82/04/2020FIT /09/2018Diabetes: Retinopathy Wsbfrqqnq99/1Diabetes: Hemoglobin A1C, 09/01/2024, 05/13/2024, Additional history rzseqvMvsvklixy65, 03/30/2023, 03/30/2023, Additional history existsDiabetes: Urine Protein Bbbdrwyvu48/08/2024, 05/01/2023, 04/12/2022, Additional history existsPneumococcal Vaccine: 65+ Years (3 of 3 - PCV20 or PCV21)703/, 09/08/2015, 06/01/2015, Additional history existsInfluenza ByourjqEliblmxgw78/29/2025, 04/30/2023, 06/15/2022, Additional history exists Procedures Procedure NamePriorityDate/TimeAssociated DiagnosisCommentsPOCT GLYCATED HEMOGLOBIN, KNNNDEllnxxz11/17/2025 10:10 AM EDT Type 2 diabetes mellitus with hyperglycemia, with long-term current use of insulin (HCC) MICROALBUMIN / CREATININE URINE ITEGDDovongd31/03/2025 11:26 AM EST Type 2 diabetes mellitus with other specified complication, without long-term current use of insulin (HCC) MM TOMOSYNTHESIS SCREENING BI08/01/2024 3:06 PM EST COLOR FUNDUS PHOTOGRAPHY - OU - BOTH NEWXFydagon70/31/2021 12:00 PM EDT FECAL GLOBIN BY IMMUNO (MEDICARE)Jaeraqv9307/05/2018 12:00 PM EST from Last 3 Months or Most Recently Relevant to Health Maintenance Results * POCT Glycated hemoglobin, total (04/17/2025 10:10 AM EDT)ComponentValueRef RangeTest MethodAnalysis TimePerformed AtPathologist SignatureHemoglobin A1C 11.6Specimen (Source)Anatomical Location / LateralityCollection Method / VolumeCollection TimeReceived PebhNytyl06/17/2025 10:10 AM EDT Narrative Authorizing ProviderResult TypeResult StatusDaniel B Wen [facility] CENTEROINT OF CARE TEST ENTER/EDIT ORDERABLESFinal Result * (ABNORMAL) Microalbumin / creatinine, urine ratio (09/01/2024 11:26 AM EST) ComponentValueRef RangeTest MethodAnalysis TimePerformed AtPathologist SignatureCREATININE, RANDOM QSOMS7644 - 275 mg/dLQUESTALBUMIN, URINE2.1See Note: mg/dLQUESTComment: Reference Range: Reference Range Not established ALBUMIN/CREATININE RATIO, RANDOM URINE33(H)<30 mg/g creatQUESTComment: The ADA defines abnormalities in albumin excretion as follows: Albuminuria Category ?Result (mg/g creatinine) Normal to Mildly increased <30 Moderately increased ? 30-299 Severely increased > OR = 300 The ADA recommends that at least two of three specimens collected within a 3-6 month period be abnormal before considering a patient to be within a diagnostic category. Specimen (Source)Anatomical Location / LateralityCollection Method / Volume Collection TimeReceived TimeUrineUrine specimen obtained by clean catch procedure / Ngjjbjz8909/01/2024 11:26 AM EST09/01/2024 11:26 AM EST Narrative [facility] - 09/02/2024 1:28 PM EST FASTING:YES FASTING: YES Resulting Agency Comment Performing Organization Information ?Site ID: QPT ?Name: [facility] ?Address: [address] [place] [address], [address] [place] [id number] ?Director: Johnny Padilla MD Authorizing ProviderResult TypeResult StatusIsa Singh PALAB URINE ORDERABLESFinal ResultPerforming OrganizationAddressCity/State/ZIP CodePhone Number [facility] * MM TOMOSYNTHESIS SCREENING BI (08/01/2024 3:06 PM EST)Anatomical Region LateralityModalityOtherSpecimen (Source)Anatomical Location / Laterality Collection Method / VolumeCollection TimeReceived Time08/01/2024 3:06 PM EST Narrative 08/01/2024 3:07 PM EST [facility] ?[address] ? [place] [address] ? Mammography Report ? Signed ? Patient: GIL,SOUMYA ? MR#: [id number] ?? : 1960 ?Acct:[id number] ?? Age/Sex: 64 / F ?ADM Date: 08/01/24 ?? Loc: MAMMO ? Attending Dr: EYAL METCALF ? Ordering Physician: EYAL METCALF ? Results: ? Date of Service: 08/01/24 ?Follow Up: ? Procedure(s): MM tomosynthesis screening BI ?? Accession Number(s): [id number] ? cc: LUDWIN WEN ; EYAL METCALF ? Patient Name: ? SOUMYA GIL ? MR#: [id number] ? : 1960 ? Exam Date: 08/01/2024 ?? Ordering Doctor: MRS. BIRCH TEA LAMP SHADE ASSEMBLER-C ? RADIOLOGY REPORT ? PROCEDURE: ? MM TOMOSYNTHESIS SCREENING BI ? COMPARISON: ? MG MAMM SCREEN 3D DONN CAD, 10/18/2021. ??MM TOMOSYNTHESIS ?? SCREENING BI, 03/30/2023. ? INDICATIONS: ? screening for malignant ? Calculator Name ? NCI Breast Cancer Risk Assessment Tool ?? 5 Year Breast Cancer Risk ? 1.90% ?? Lifetime Breast Cancer Risk ? 7.00% ?? Personal Breast Cancer ?No ?? Personal Ovarian Cancer ? No ?? Treatments ? None ?? Family Cancers ? Grandmother-maternal with liver cancer at age 48; ?? Grandfather-maternal with leg,lung,esopagus, tongue cancer at age ??38; ?? Grandfather-paternal with lung cancer at age ??60; Aunt-paternal with breast ?? cancer at age 52. ? LOCATION: ? [facility] ? BREAST COMPOSITION: ? There are scattered areas of fibroglandular density. ? FINDINGS: ? DIAGNOSTIC CATEGORY 2--BENIGN FINDING. NO CHANGE FROM COMPARISON. ??Scattered ?? benign-appearing calcifications are present. ??Scattered benign-appearing lymph ?? nodes are present. ? RIGHT BREAST: ??No significant suspicious finding. ? LEFT BREAST: ??No significant suspicious finding. ? RECOMMENDATIONS: ? ROUTINE MAMMOGRAM AND CLINICAL EVALUATION IN 12 MONTHS. ? PLEASE NOTE: ??A NORMAL MAMMOGRAM DOES NOT EXCLUDE THE POSSIBILITY OF BREAST ?? CANCER. ??A CLINICALLY SUSPICIOUS PALPABLE LUMP SHOULD BE BIOPSIED. ? Dictated by: Ovi Bynum MD on 08/01/2024 at 15:05 ? Approved by: Ovi Bynum MD on 08/01/2024 at 15:06 ? Dictated By: ?Ovi Bynum M.D. ? Signed By: ?08/01/241506 ? DD/ 05 ? TD/TT: ? Paint Process Engineer: Procedure Note Radiology, Radiologist, MD - 08/01/2024 [place] [address] Mammography Report Signed Patient: NGUYỄN GIL#: [id number] : 1960cct:[id number] Age/Sex: 64 / FADM Date: 08/01/24 Loc: MAMMO Attending Dr: EYAL METCALF Ordering Physician: Corbin METCALFults: Date of Service: 08/01/24Follow Up: Procedure(s): MM tomosynthesis screening BI Accession Number(s): [id number] cc: LUDWIN WEN ; EYAL METCALF Patient Name: SOUMYA GIL MR#: [id number] : 1960 Exam Date: 08/01/2024 Ordering Doctor: MRS. EYAL METCALF LAMP SHADE ASSEMBLER-C RADIOLOGY REPORT PROCEDURE: MM TOMOSYNTHESIS SCREENING BI COMPARISON: MG MAMM SCREEN 3D DONN CAD, 10/18/2021. MM TOMOSYNTHESIS SCREENING BI, 03/30/2023. INDICATIONS: screening for malignant Calculator Name NCI Breast Cancer Risk Assessment Tool 5 Year Breast Cancer Risk 1.90% Lifetime Breast Cancer Risk 7.00% Personal Breast Cancer No Personal Ovarian Cancer No Treatments None Family Cancers Grandmother-maternal with liver cancer at age 48; Grandfather-maternal with leg,lung,esopagus, tongue cancer at age 38; Grandfather-paternal with lung cancer at age 60; Aunt-paternal withbreast cancer at age 52. LOCATION: [facility] BREAST COMPOSITION: There are scattered areas of fibroglandulardensity. FINDINGS: DIAGNOSTIC CATEGORY 2--BENIGN FINDING. NO CHANGE FROM COMPARISON.Scattered benign-appearing calcifications are present. Scattered benign-appearinglymph nodes are present. RIGHT BREAST: No significant suspicious finding. LEFT BREAST: No significant suspicious finding. RECOMMENDATIONS: ROUTINE MAMMOGRAM AND CLINICAL EVALUATION IN 12 MONTHS. PLEASE NOTE: A NORMAL MAMMOGRAM DOES NOT EXCLUDE THE POSSIBILITY OFBREAST CANCER. A CLINICALLY SUSPICIOUS PALPABLE LUMP SHOULD BE BIOPSIED. Dictated by: Ovi Bynum MD on 08/01/2024 at 15:05 Approved by: Ovi Bynum MD on 08/01/2024 at 15:06 Dictated By: Ovi Bynum M.D. Signed By:08/01/24 1507 DD/ 1506 TD/TT: Paint Process Engineer: Authorizing ProviderResult TypeResult StatusEyal Metcalf NPCLINISYNC IMAGING Final Result * Color Fundus Photography - OU - Both Eyes (09/29/2020 12:00 PM EDT)Anatomical RegionLateralityModalityHeadFundus PhotographySpecimen (Source)Anatomical Location / LateralityCollection Method / VolumeCollection TimeReceived Time 09/29/2020 12:00 PM EDT Narrative 09/29/2020 12:00 PM EDT PERFORMED AT [facility] LOCATION:[id number] [facility] Procedure Note CONVERSION, GENERIC - 11/15/2022 PERFORMED AT [facility] LOCATION:[id number] [facility] Authorizing ProviderResult TypeResult StatusDarolando Wen MDTIDELANDS GEORGETOWN MEMORIAL HOSPITALEVELINA PHOTOGRAPHY Final Result * FECAL GLOBIN BY IMMUNO (MEDICARE) (07/05/2018 12:00 PM EST)ComponentValueRef RangeTest MethodAnalysis TimePerformed AtPathologist SignatureRESULTnegECW NONXML LABSSpecimen (Source)Anatomical Location / LateralityCollection Method / VolumeCollection TimeReceived Time07/05/2018 12:00 PM EST Narrative Authorizing ProviderResult TypeResult StatusLudwin SHORT LABSFinal ResultPerforming OrganizationAddressCity/State/ZIP CodePhone Number ECW NONXML LABS from Last 3 Months or Most Recently Relevant to Health Maintenance Insurance * Guarantor: Michael Gil TypeRelation to PatientDate of BirthPhone Billing AddressPersonal/EqtbsfEfki1960 [address] [address] Care Teams Team MemberRelationshipSpecialtyStart DateEnd Ludwin Wen MD [address] [facility] [address] [place] [address] PCP - GeneralInternal Medicine11/13/22 Ludwin Wen MD [address] [facility] [address] [place] [address] PCP - [employer]07/02/23
--- OUTSIDE RECORDS SUMMARY | 2025-04-22 08:15 | XMS_ITS | Clinical Summary ---
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 Name Role Phone Unavailable Primary Care Provider Unavailabl e Allergies Active AllergyReactionsCriticalityNoted PrsmXbgleiklTmnhixxjwxOarp52/23/2023 stroke stroke Lzuicxgzw68/24/2024 Heart issues Jscpcarra17/04/2021 Other Reaction(s): Heightened Sense of Smell Other reaction(s): Heightened Sense of Smell Other Reaction(s): Heightened Sense of Smell JiqweawzheHfzvb68/24/2024 Heart issues EkqtynaylfXvdx05/23/2023 stroke stroke SssyeexizqmfobtrbiGipyd04/03/2024 PROLONGED QT LevofloxacinHives,BtvcNqg7908/04/2013Metoprolol Hnospuxi52/24/2024Ondansetron Hcl Other10/24/2023 Prolonged QT Medications MedicationSigDispense QuantityRefillsLast FilledStart DateEnd DateStatus albuterol (ProAir HFA) 90 mcg/actuation inhaler Inhale 1 puff as needed by inhalation route for 17 days.Active aspirin 81 mg EC tablet Take 81 mg by mouth in the morning.10/09/2022ctive atorvastatin (Lipitor) 40 mg tablet Take 40 mg by mouth in the morning.10/09/2022ctive brexpiprazole (Rexulti) 2 mg tablet Take 2 mg by mouth in the morning.05/21/2023ctive carvedilol (Coreg) 6.25 mg tablet TAKE 1 TABLET WITH FOOD ORALLY TWICE A DAY 100 DAYS08/22/2023ctive docusate sodium (Colace) 50 mg capsule Take 100 mg by mouth in the morning.Active fluconazole (Diflucan) 100 mg tablet Active FLUoxetine (PROzac) 40 mg capsule Take 40 mg by mouth in the morning.09/27/2023ctive fluticasone propion-salmeteroL (Advair Diskus) 250-50 mcg/dose diskus inhaler Inhale 1 puff twice a day by inhalation route for 30 days.Active fluticasone (Flonase) 50 mcg/actuation nasal spray 08/30/2007ctive furosemide (Lasix) 20 mg tablet Use 1 tablet in the mouth or throat 1 (one) time each day.05/31/2023ctive leflunomide (Arava) 20 mg tablet Take 20 mg by mouth in the morning.Active lisinopril 20 mg tablet Take 20 mg by mouth in the morning.09/14/2023ctive modafinil (Provigil) 200 mg tablet Use 1 tablet in the mouth or throat 1 (one) time each day.Active morphine CR (MS Contin) 15 mg 12 hr tablet TAKE 1 TABLET BY MOUTH IN THE MORNING AND BEFORE AKLTBLE9110/01/2023ctive potassium chloride ER (Micro-K) 10 mEq ER capsule Take 1 capsule every day by oral route for 30 days.10/23/2022ctive SITagliptin phosphate (Januvia) 100 mg tablet Take 100 mg by mouth in the morning.07/14/2022ctive pantoprazole (ProtoNix) 40 mg EC tablet Indications:Esophagitis determined by endoscopyTake 1 tablet (40 mg) by mouth two times daily. 60 tablet ctive lactulose 10 gram/15 mL (15 mL) solution Indications:Hepatic encephalopathy (CMS/HCC)Take 10 g by mouth three times daily. 120 mL ctive cholecalciferol (Vitamin D-3) 25 MCG (1000 UT) capsule take 1 capsule (25 mcg) by mouth dailyActive Farxiga 10 mg 10/08/2024tive ergocalciferol (Vitamin D-2) 1.25 MG (05135 Units) capsule Take 1 capsule by mouth every 7 (seven) days.01/01/2024ctive fentaNYL (Duragesic) 12 mcg/hr PLACE 1 PATCH OVER 72 HOURS ON THE SKIN EVERY 3RD DAY5Active Kerendia 20 mg tablet Take 1 tablet by mouth in the morning.5Active oxyCODONE (Roxicodone) 10 mg immediate release tablet TAKE 1 TABLET (10 MG) BY MOUTH EVERY 12 (TWELVE) HOURS IF NEEDED FOR SEVERE PAIN 5Active Active Problems ProblemNoted DateDiagnosed GafkNkwawpzxhq03/16/2025 Overview (10/15/2024): depression Bhjeeqvvajpogh02/16/2025 Overview (10/15/2024): hyperlipidemia Qqpzckz8310/15/20241605Gqowow92/16/2025Tobacco dependence vomlclhv77/16/2025Drug- induced kmnxpasvfyyf48/02/7964Ershyuzmukzfyvgypxc66/09/2024Prolonged QT interval 02/06/2023Heart failure with reduced ejection gmjtekxi78/24/2023erebral ymgsihvpmd15/21/2023 Overview (10/15/2024): stoke- mini strokes Bcomkwhq16/21/2023Multiple tinfbvury11/21/2023 Overview (10/15/2024): Multiple sclerosis Peripheral sdjgqrmylg79/21/2023DJD (degenerative joint disease)12/20/2022 Overview (10/15/2024): degenerative joint disease RLS (restless legs syndrome)12/20/2022 Overview (10/15/2024): restless leg syndrome Sleep apnea12/20/2022 Overview (10/15/2024): sleep apnea DDD (degenerative disc disease), xqgjeu9811/20/2022Lumbar disc herniation 11/20/2022Lumbar nkspckaowhpyk51/22/2023holelithiasis without obstruction 11/07/2022hronic obstructive pulmonary dslgyok0411/07/2022 Overview (10/15/2024): COPD Chronic pain11/07/2022Fatty liver11/07/2022History of yjhhbhomjbsh89/09/2023 Hyperglycemia due to type 2 diabetes nraviilz55/09/2023Mixed hyperlipidemia 11/07/2022ervical xfivlcpievidc88/09/2023Moderate major depression, single ajfymmq3811/07/2022hronic fatigue vfhuhvgv12/09/2023Non-pressure chronic ulcer of other part of right foot with necrosis of pfnlyg5411/07/2022Non-seasonal allergic twwiriti38/09/2023Obesity (BMI 30-39.9)11/07/20220055Fajuhsjwpi94/09/2023Other primary ovarian jfhjqui8011/07/2022eripheral vascular hwlzval4911/07/2022oorly controlled diabetes eggiqyeq20/09/2023Raynaud's phenomenon without gangrene 11/07/2022Rheumatoid xnuztyrwu10/09/2023 Overview (10/15/2024): rheumatoid arthritis Oqqavvto46/09/2023OSA (obstructive sleep apnea)11/07/2022Vitamin D deficiency 11/07/20220237Mxyssrpgtalu38/24/2023rimary skyexnyvprek14/24/2023 Overview (10/15/2024): Hypertension Cardiogenic shock10/01/2022cute coronary /31/2023 Overview (10/15/2024): Added automatically from request for surgery [id number] NSTEMI (non-ST elevated myocardial infarction)09/29/2022Multiple pulmonary obpvdvf0610/06/20205040Ebosihzfd55/09/2020Attention deficit disorder without roteigocptvnm95/04/2019Former abwrrl6112/09/2018Carpal tunnel /23/2019 manager security and safety current use of vcrkzcy4111/21/2018Mononeuropathy due to type 2 diabetes rdmezsxf05/23/2019Peripheral vascular disorder due to diabetes mellitus 11/21/2018SUI (stress urinary incontinence, female)07/19/2017 Overview (10/15/2024): Added automatically from request for surgery [id number] Doshhek4812/23/2015Intervertebral disc xfziadtc08/17/2015nxiety and depression 08/04/2013 Overview (10/15/2024): depression Urinary fxasbrmngajr47/03/2014therosclerosis of coronary artery without angina jcdyviye36/29/2008 Overview (10/15/2024): CAD: mild disease. [facility] was 12/26/05: No intervention. stable Added automatically from request for surgery [id number] Diabetes wuaaxcey19/29/2008 Overview (10/15/2024): borderline diabetes- : on glucophage Controlled type 2 diabetes mellitus with complication, with long-term current use of iulisxm2408/30/2007bnormal findings on diagnostic imaging of breast 12/01/2004 Immunizations ImmunizationAdministration DatesNext DueInfluenza, High-dose Seasonal, Quadrivalent, Preservative Free04/30/2023Influenza, injectable, quadrivalent 04/04/2021Influenza, injectable, quadrivalent, preservative free06/15/2022, 05/17/2020Influenza, seasonal, iypdkdlugf89/03/2014Influenza, seasonal,quadrivalent, preservative free06/02/2019,04/29/2018,06/06/2017, 03/11/2015,06/20/2010Pneumococcal Conjugate PCV 1303,06/01/2015 Pneumococcal Polysaccharide WHQ329709/20/2021,09/14/2009 Social History Tobacco UseTypesPacks/DayYears UsedDateSmoking Tobacco: FormerCigarettesQuit: 2018Smokeless Tobacco: Never Tobacco Cessation:Counseling Given: Not Answered Alcohol UseStandard Drinks/WeekCommentsNot Currently0 (1 standard drink = 0.6 oz pure alcohol)UT Safety & EnvironmentAnswerDate RecordedFear of Current or Ex-PartnerNot on file08/23/2023Emotionally AbusedNot on file08/23/2023hysically AbusedNot on file08/23/2023Sexually AbusedNot on file08/23/2023hysically or Sexually AbusedNot on file08/23/2023CommentsUnknownSex and Gender InformationValueDate RecordedSex Assigned at BirthNot on fileLegal SexFemale 12/28/2021 10:05 PM EDTGender IdentityNot on fileSexual OrientationNot on file Last Filed Vital Signs Vital SignReadingTime TakenCommentsBlood Wrconxyt635/7404/30/2024 1:23 PM EDT Qvcrz067804/30/2024 1:23 PM EDTTemperature--Respiratory Luse480910/24/2023 2:18 PM EDTOxygen Rrafgheqkv47%04/30/2024 1:23 PM EDTInhaled Oxygen Concentration-- Sdpafy05.9 kg (187 lb 3.2 oz)04/30/2024 1:23 PM YTGCdkubz514.6 cm (5' 6 ) 04/30/2024 1:23 PM EDTBody Mass Index30.211 1:23 PM EDT Plan of Treatment Health MaintenanceDue DateLast DoneCommentsCT Klxmflelhljd1958Colonoscopy 1958Colorectal Cancer Higrduvzv1958FIT-DNA1958FIT1958 FOBT1958Medicare Annual Wellness (AWV)1960 2045Wkffkpvcmozpj1958 Diabetes: Retinopathy Fzxbyqako05/28/1968Depression Zuxnkhsva59/28/1970Adult Uyizdke5304/28/19801964Bhanscqre64/28/1998Zoster Vaccines (1 of 2)2008Fall Risk Cttrzczqd99/28/2023iabetes: Hemoglobin A1C/5COVID-19 Vaccine (3 - 2024- season)506/01/2021, 11/09/2020Influenza Vaccine (#1) 510/, 06/15/2022, 04/04/2021, Additional history existsDiabetes: Urine Protein Cvjmiaftc64/03/304968/08/2024, 3Pneumococcal Vaccine: 50+ Years (3 of 3 - PCV20 or PCV21)/, 09/08/2015, 06/01/2015, Additional history existsHIB VaccinesAged OutNo longer eligible based on patient's age to complete this topicHPV VaccinesAged OutNo longer eligible based on patient's age to complete this topicIPV VaccinesAged OutNo longer eligible based on patient's age to complete this topicMeningococcal B VaccineAged OutNo longer eligible based on patient's age to complete this topicMeningococcal VaccineAged OutNo longer eligible based on patient's age to complete this topic Rotavirus VaccinesAged OutNo longer eligible based on patient's age to complete this topic Insurance
--- OUTSIDE RECORDS SUMMARY | 2025-04-22 08:15 | XMS_ITS | Encounter Summary ---
Author Organization [facility] Address [address] [place] [address] Care Team Providers Care Automobile Seat Cover Installer Name Role Phone Ludwin Wen MD Primary Care Provider [phone] Ludwin Wen MD Unavailable [phone] Encounter Details DateTypeDepartmentCare Team (Latest Contact Info)Ywvtlhhqddt11/17/2025Bamboo flowsheet [facility] [place] [facility] [address] [place] [phone] Ludwin Wen MD [address] [place] [address] Social History Tobacco UseTypesPacks/DayYears UsedDateSmoking Tobacco: FormerCigarettes1.545 [...] relatives?Twice a week05/10/2023How often do you attend yazidi or congregation services?Never05/10/2023o you belong to any clubs or organizations such as yazidi groups, unions, fraternal or athletic groups, or school groups?No 05/10/2023How often do you attend meetings of the clubs or organizations you belong to?Never05/10/2023re you , , , , never , or living with a partner?Hpwgbkhx32/09/2023UDIT-CAnswerDate Recorded Q1: How often do you have [...] hard at all05/10/2023HQ-2AnswerDate Recorded Patient Health Questionnaire-2 Fwxln684Finmount[facility] [place] of [facility] Health - Occupational Stress QuestionnaireAnswerDate [...] InformationValueDate RecordedSex Assigned at BirthNot on fileLegal ZcaKhknfg40/15/2023 6:45 PM EDTGender Identity Not on fileSexual OrientationNot on filedocumented as of this encounter Plan of Treatment DateTypeDepartmentCare Team (Latest Contact Info)Pbblbadmzmr11/17/2025 9:00 AM ESTOffice Visit [facility] [place] [facility] [address] [place] [address] Ludwin Wen MD [address] [place] [address] documented as of this encounter Visit Diagnoses Not on filedocumented in this encounter Additional Health Concerns AssessmentNoted TimePHQ-9 Depression Total Score: 10:00 AM EST documented as of this encounter Care Teams Team MemberRelationshipSpecialtyStart DateEnd Date Ludwin Wen MD [address] [place] [address] PCP - GeneralInternal Medicine11/13/22 Ludwin Wen MD [address] [facility] [address] [place] [address] PCP - [employer]07/02/23documented as of this encounter
--- OUTSIDE RECORDS SUMMARY | 2025-04-22 08:15 | XMS_ITS | Encounter Summary ---
Author Organization [facility] Address [address] [place] [address] Care Team Providers Care Production Manufacturing Worker Name Role Phone Ludwin Wen MD Primary Care Provider [phone] Ludwin Wen MD Unavailable [phone] Encounter Details DateTypeDepartmentCare Team (Latest Contact Info)Zunfxpksbsz50/17/2025Travel Social History Tobacco UseTypesPacks/DayYears UsedDateSmoking Tobacco: FormerCigarettes1.545 [...] relatives?Twice a week05/10/2023How often do you attend mormonism or mosque services?Never05/10/2023o you belong to any clubs or organizations such as mormonism groups, unions, fraternal or athletic groups, or school groups?No 05/10/2023How often do you attend meetings of the clubs or organizations you belong to?Never05/10/2023re you , , , , never , or living with a partner?Eogoeolr84/09/2023UDIT-CAnswerDate Recorded Q1: How often do you have [...] hard at all05/10/2023HQ-2AnswerDate Recorded Patient Health Questionnaire-2 Xitkp953[facility] [place] of Occupational Health - Occupational Stress QuestionnaireAnswerDate [...] sleep or slept in ashelter (including now)?No 3CommentsUnknownSex and Gender InformationValueDate RecordedSex Assigned at BirthNot on fileLegal UchTjwmem63/15/2023 6:45 PM EDTGender Identity Not on fileSexual OrientationNot on filedocumented as of this encounter Plan of Treatment DateTypeDepartmentCare Team (Latest Contact Info)Sifdcumebur06/17/2025 9:00 AM ESTOffice Visit [facility] [place] [facility] [address] [place] [address] Ludwin Wen MD [address] [place] [address] documented as of this encounter Visit Diagnoses Not on filedocumented in this encounter Additional Health Concerns AssessmentNoted TimePHQ-9 Depression Total Score: 10:00 AM EST documented as of this encounter Care Teams Team MemberRelationshipSpecialtyStart DateEnd Date Ludwin Wen MD [address] [place] [address] PCP - GeneralInternal Medicine11/13/22 Ludwin Wen MD [address] [place] [address] PCP - [employer]07/02/23documented as of this encounter
--- OUTSIDE RECORDS SUMMARY | 2025-04-22 08:16 | XMS_ITS | CCD ---
Author Organization [facility] Inform ion Partnership [facility] Care Team Providers Care Rubber Chemist Name Role Phone LORNA, BERI M Unavailable Unavailable LORNA, BERI M Unavailable Unavailable KELLY DAVIDSON (PROJECT INSPECTOR) Unavailable Unavailab le LORNA, BERI M Unavailable Unavailable LORNA, BERI M Unavailable Unavailable LORNA, BERI M Unavailable Unavailable LORNA, BERI M Unavailable Unavailable LORNA, BERI M Unavailable Unavailable AUGUSTUS LOVE (PROJECT INSPECTOR) Unavailable Unavaila ble LORNA, BERI M Unavailable Unavailable UNKNOWN, PROVIDER Attending Unavailable LUDWIN WEN Primary Care Unavailable UNKNOWN, PROVIDER Attending Unavailable LUDWIN WEN Primary Care Unavailable Unknown, Referring Provider Unavailable Unav ailable Gaetano Torres Unavailable Unavailable Juan F Savage Unavailable Unavailable Unknown, Referring Provider Unavailable Unav ailable Unavailable Unavailable MD Juan F Savage Attending Provider [phone] MIGUEL Wen Primary Care Provider Gaetano Torres [...] Attending Unavailable BRIAN, DR COLLINS Admitting Unavailable HALADACiara, DR COLLINS Consulting Unavailable BEHZAD, DR MASCORRO [...] Unavailable WEN, DR MASCORRO Primary Care Unavailable RITESH MOERNO Attending Unavailable JOSH, RITESH Admitting Unavailable WEN, DR MASCORRO Primary Care Unavailable SIM, DR DIAZ Dobbins Consulting Unavailable DAVID ., RIZWANA JOEDA Consulting Unavailsusana e RITESH MORENO Consulting Unavailable JUANA ROGERS Attending Unavailable MORGAN ., JUANA MEIER Admitting Unavailable WEN, DR MASCORRO Primary Care Unavailable WEST, DR TAMIKO Hill Consulting Unavailable JUANA ROGERS Consulting Unavailable Behzad, MIGUEL Mascorro Primary Care Provider MD Gaetano Torres Attending Provider Behzad, MIGUEL Mascorro Primary Care Provider [phone] MD Gaetano Torres Attending Provider Brian, Dr. Gaetano Peres Primary Care Unava ilable Juan F Savage Referring Unavailable Juan F Savage Attending Unavailable UNKNOWN, PCP Primary Care Unavailable Juan F Savage Attending Unavailable JUAN F SAVAGE Attending Unavailable UNKNOWN, PCP Primary Care Unavailable Brian, Dr. Gaetano Peres Referring Unava ilable Brian, Dr. Gaetano Peres Primary Care Unava ilable KD, JUAN F Attending Unavailable Brian, Dr. Gaetano Peres Referring Unava ilable Ludwin Wen MD Primary Care Provider Ludwin Wen MD Unavailable Scotty Huggins Attending Unavailable LUDWIN WEN B Primary Care Physician [phone] LUDWIN WEN B Referring Unavailable BEHZAD, LUDWIN B Primary Care Unavailable BEHZAD LUDWIN B Referring Unavailable BEHZAD, LUDWIN B Primary Care Unavailable BEHZAD LUDWIN B Referring Unavailable BEHZAD, LUDWIN B Primary Care Unavailable BEHZAD LUDWIN B Referring Unavailable BEHZAD, LUDWIN B Primary Care Unavailable BENNIE MERRITT Admitting Unavailable BENNIE MERRITT Attending Unavailable JORDY CLEMENTE Referring Unavailable BEHZAD, LUDWIN B Primary Care Unavailable [facility] ONLY, [facility] Consulting Unavailable ([facility] ONLY), NEURO-CONSULTING Consulting [place] vailable CARDIOLOGY, [facility] Consulting Unavailable MICHAEL CALDWELL Consulting Unavailable FISH CORTES Consulting Unavailable BASHAR, MASHARIB Referring Unavailable WEN, LUDWIN B Primary Care Unavailable FUAD TIPTON Attending Unavailable WEN, LUDWIN B Primary Care Unavailable ALASTAL, YASEEN S Attending Unavailable ALASTAL, YASEEN S Referring Unavailable WEN, LUDWIN B Primary Care Unavailable ALASTAL, YASEEN S Attending Unavailable ALASTAL, YASEEN S Referring Unavailable BEHZAD, LUDWIN B Primary Care Unavailable SELENE SHORT Referring Unavai lable WEN, LUDWIN B Primary Care Unavailable SELENE SHORT Referring Unavai lable WEN, LUDWIN B Primary Care Unavailable LUIS ALBERTO, LUIGI Referring Unavailable WEN, LUDWIN B Primary Care Unavailable MELI ROMO Attending Unavailable LUIS ALBERTO, LUIGI Referring Unavailable WEN, LUDWIN B Primary Care Unavailable AHFABIAN BAHENA Referring Unavailable WEN, LUDWIN B Primary Care Unavailable CHANAVERITO Attending Unavailable BEHZAD LUDWIN B Referring Unavailable BEHZAD LUDWIN B Primary Care Unavailable Behzad II Ludwin Primary Care Provider [phone] MD Howard Kolb Attending Provider YESSY BERNAL Attending Unavailable LUDWIN WEN B Referring Unavailable BEHZAD LUDWIN B Primary Care Unavailable DANNIE SANFORD Attending Unavailable TIMMY BANDA Referring Unavailable BEHZAD LUDWIN B Primary Care Unavailable DANNIE SANFORD Attending Unavailable LUDWIN WEN B Referring Unavailable BEHZAD LUDWIN B Primary Care Unavailable Ludwin Wen MD Unavailable [phone] HOWARD KOLB Attending Unavailable HOWARD KOLB Attending Unavailable Ludwin Wen II Primary Care Provider Desean ROBERTSCClair Attending Provider Clair Anton Admitting Unavailable Clair Anton Attending Unavailable Ludwin Wen Primary Care Unavailable ISA DA SILVA Attending Unavailable LUDWIN WEN B Attending Unavailable MARIA METCALF Attending Unavailable LUDWIN WEN B Attending Unavailable LUDWIN WEN B Attending Unavailable Allergies Allergy ClassificationReported Allergen(s)Allergy TypeDate of OnsetReaction(s) Facility (20 sources)levoFLOXacin; Translations: [LEVOFLOXACIN]Drug Uifvqhk69-19-1239 Unknown, Rash, Urticaria (disorder)[facility] Repository (9 sources)levoFLOXacin; Translations: [Levaquin]Drug Qisqukw15-38-5936Yqeoppva [facility] Repository (2 sources)Etanercept; Translations: [Enbrel][facility]rug [facility]ergy[facility] (20 sources)adalimumab; Translations: [ADALIMUMAB]Drug Qayfdfu04-34-9218[facility] Work Phone: (20 sources)buPROPion; Translations: [BUPROPION]Drug Vxurkry82-39-5856[facility] (20 sources)Etanercept; Translations: [ETANERCEPT]Drug Czghlcc36-04-1697[facility] (1 source)Etanercept; Translations: [etanercept]Drug AllergyCerebrovascular accident (disorder)[facility] (3 sources)buPROPion; Translations: [BUPROPION HCL]Drug Nwvgnkt38-89-9253 [facility] Repository (20 sources)Citalopram; Translations: [CITALOPRAM]Drug Dgezdiu72-33-8613Johat [facility] Repository (20 sources)Hydroxychloroquine; Translations: [HYDROXYCHLOROQUINE]Drug Allergy 47-65-4985MmmulRabCohvzd Repository (20 sources)Meclizine; Translations: [MECLIZINE]Drug Jeuigbn60-90-6256Ykklz [facility] Repository (2 sources)Metoprolol; Translations: [METOPROLOL TARTRATE]Drug Cgnmyys41-29-7758 [facility] Repository (2 sources)Ondansetron; Translations: [ONDANSETRON HCL]Drug Mcwadqp37-81-7406 [facility] Repository (20 sources)MetoprololDrug Vxrvays53-26-0597DfcraZJDN [facility] (20 sources)OndansetronDrug Elxqdxk15-00-5708JnakxMASI [facility] Medications Current Medications MedicationDrug Class(es)DatesSig (Normalized)Sig (Original)amoxicillin 875 mg / clavulanate 125 mg oral tablet (2 sources)Penicillin-class AntibacterialStart: 09-01-2024 End: 34-72-4579ratt 1 tablet by mouth in the morningamoxicillin-clavulanate (Augmentin) 875-125 MG tablet Indications: Acute non-recurrent ethmoidal sin usitis Take 1 tablet (875 mg) by mouth in the morning and 1 tablet (875 mg) in the evening. Take with meals. Do all this for 7 days. 14 tablet 09/01/2024 09/08/2024 Activeaspirin 81 mg delayed release oral tablet (20 sources)Platelet Aggregation Inhibitor, Nonsteroidal Anti-inflammatory Drug Start: 28-74-3806clom 1 tablet by mouth in the morningaspirin 81 MG EC tablet Take 81 mg by mouth in the morning. 10/09/2022 Activeatorvastatin 40 mg oral tablet (20 sources)HMG-CoA Reductase InhibitorStart: 10-09-2022 End: 99-15-2674fmyc 1 tablet by mouth at bedtimeatorvastatin (Lipitor) 40 MG tablet Take 40 mg by mouth at bedtime. 10/09/2022 04/17/2025 Discontinued brexpiprazole 2 mg oral tablet (3 sources)Atypical AntipsychoticStart: 97-23-3258coyr 1 tablet by mouth in the morningBrexpiprazole (Rexulti) 2 MG tablet Indications: Moderate major depression, single episode (HCC) (CMS/HCC) Take 2 mg by mouth in the morning. 30 tablet 11 05/21/2023 Activecarvedilol 6.25 mg oral tablet (20 sources)alpha-Adrenergic Hudson, beta-Adrenergic BlockerStart: 11-28-2023 End: 13-39-0850mlpy 1 tablet by mouth in the morningcarvedilol (Coreg) 6.25 MG tablet Indications: Essential hypertension Take 1 tablet (6.25 mg) by mouth in the morning and 1 tablet (6.25 mg) in the evening. Take with meals. 200 tablet 3 01/29/2025 Activetake 1 tablet by mouth in the morningcarvedilol (Coreg) 6.25 MG tablet Take 6.25 mg by mouth in the morning and 6.25 mg in the evening. Take with meals. 0 Activecefdinir 300 mg oral capsule (2 sources)Cephalosporin AntibacterialStart: 08-15-2023 End: 12-87-3339vgeo 1 capsule by mouth in the morningcefdinir (Omnicef) 300 MG capsule Indications: Acute non-recurrent sinusitis, unspecified location Take 1 capsule (300 mg) by mouth in the morning and 1 capsule (300 mg) before bedtime. Do all this for 7 days. 14 capsule 0 08/15/2023 08/22/2023 Activecholecalciferol 0.025 mg oral capsule (20 sources)Vitamin DStart: 01-02-2024 End: 32-77-2567qacg 1 capsule by mouth once dailycholecalciferol (Vitamin D-3) 25 MCG (1000 UT) capsule Indications: Vitamin D deficiency Take 1 capsule (25 mcg) by mouth Daily 100 capsule 3 05/13/2024 ActiveStart: 80-90-3100vjry 1 capsule by mouth every other weekD3-50 1.25 MG (07440 UT) Oral Capsule TAKE 1 CAPSULE EVERY 2 WEEKS Quantity: 6 Refills: 0 Ordered: 19-Nov-2017 DO Start : 27-Aug-2017 Activedapagliflozin 10 mg oral tablet (6 sources)Sodium-Glucose Cotransporter 2 InhibitorStart: 08-20-2914ewug 1 tablet by mouth once dailydapagliflozin (Farxiga) 10 MG Indications: Type 2 diabetes mellitus with hyperglycemia, with long-term current use of insulin (HCC) Take 1 tablet (10 mg) by mouth Daily 90 tablet 3 04/17/2025 ActiveStart: 68-30-9135nedo 1 tablet by mouth once dailydapagliflozin (Farxiga) 10 MG Indications: Type 2 diabetes mellitus with hyperglycemia, with long-term current use of insulin (HCC) Take 1 tablet (10 mg) by mouth Daily 90 tablet 3 04/17/2025 ActiveStart: 10-08-2024 End: 31-72-1528axza 1 tablet by mouth once dailyFarxiga 10 MG Indications: Type 2 diabetes mellitus with hyperglycemia, with long-term current use of insulin ([facility]/HCC) Take 1 tablet (10 mg) by mouth Daily 90 tablet 3 10/08/2024 12/01/2024 Discontinueddocusate sodium 100 mg oral capsule (20 sources)Start: 24-24-0141xqvb 1 capsule by mouth in the morningCVS Stool Softener 100 MG capsule Indications: Drug-induced constipation TAKE 1 CAPSULE (100 MG) BYMOUTH IN THE MORNING 100 capsule 3 07/10/2024 ActiveStart: 01-01-2024 take 1 capsule by mouth once dailydocusate sodium ([facility]S Stool Softener) 100 MG capsule Indications: Drug-induced constipation Take 1 capsule (100 mg) by mouth Daily 100 capsule 3 01/01/2024 ActiveStart: 59-81-3870cbct 1 capsule by mouth in the morningdocusate sodium (CVS Stool Softener) 100 MG capsule Indications: Drug-induced constipation Take 1 capsule (100 mg) by mouth in the morning. 100 capsule 3 07/31/2023 ActiveStart: 88-16-2025qyhn 1 capsule by mouth at bedtime as neededCVS Stool Softener 100 MG Oral Capsule TAKE 1 CAPSULE BY MOUTH AT BEDTIME NEEDED Quantity: 30 Refills: 0 Ordered: 09-Nov-2017 DO Start : 13-Nov-2016 Activedocusate sodium 50 mg / sennosides, group home 8.6 mg oral tablet (20 sources)Start: 79-35-5123bept 8.6-50 mg by mouth twice daily as neededsenna- docusate (Lidia-Colace) 8.6-50 MG tablet Take 1 tablet by mouth 2 (two) times a day as needed for constipation. 10/09/2022 Activeergocalciferol 1.25 mg oral capsule (3 sources)Provitamin D2 CompoundStart: 02-71-6661jjnbatfwggleqm (Vitamin D-2) 1.25 MG (32824 UT) capsule Take by mouth 1 (one) time per week. 0 09/11/2011 Tabevl33 hr fentaNYL 0.012 mg/hr transdermal system (8 sources)Opioid AgonistStart: 06-27-2024 End: 71-99-3332cwgtmRWI (DURAGESIC) 12 MCG/HR Indications: Rheumatoid arthritis involving multiple sites with positive rheumatoid factor ([facility] [place]) Place 1 patch over 72 hours on the skin every 3rd (third) day 10 patch 07/29/2024 09/01/2024 Discontinued (Ineffective)finerenone (Kerendia) 10 MG tablet (11 sources)take 1 tablet by mouth once dailyfinerenone (Kerendia) 10 MG tablet Take 10 mg by mouth Daily Activefinerenone (Kerendia) 20 MG tablet (1 source)Start: 09-03-2024 End: 85-56-0018tsle 1 tablet by mouth once dailyfinerenone (Kerendia) 20 MG tablet Indications: Type 2 diabetes mellitus with hyperglycemia, with long-term current use of insulin ([facility] [place]) Take 1 tablet (20 mg) by mouth Daily 100 tablet 3 09/03/2024 10/08/2025 Activefluconazole 150 mg oral tablet (10 sources)Azole AntifungalStart: 09-01-2024 End: 82-66-0013izunxfyaluc (Diflucan) 150 MG tablet Indications: Acute non- recurrent ethmoidal sinusitis Take 1 tablet (150 mg) by mouth Daily for 1 day, THEN 1 tablet (150 mg) Daily for 1 day. Take doses 3 days apart. 2 tablet 09/01/2024 09/02/2024 ActiveStart: 08-15-2023 End: 83-81-7427lphq 1 tablet by mouth in the morningfluconazole (Diflucan) 100 MG tablet Indications: Tinea corporis Take 1 tablet (100 mg) by mouth inthe morning for 10 days. 10 tablet 0 08/15/2023 08/25/2023 ActiveStart: 11-07-2017 Fluconazole 100 MG Oral Tablet Quantity: 10 Refills: 0 Ordered: 07-Nov-2017 DO Start : 07-Nov-2017 ActiveStart: 99-23-3336Ptkwvwsikko 100 MG Oral Tablet Quantity: 10 Refills: 0 DO Start : 07-Nov-2017 ActiveFLUoxetine 40 mg oral capsule (20 sources)Serotonin Reuptake InhibitorStart: 87-06-9522rkqz 1 capsule by mouth once daily in the morningFLUoxetine (PROzac) 40 MG capsule Indications: Moderate major depression, single episode (HCC) TAKE1 CAPSULE BY MOUTH EVERY MORNING 100 capsule 3 11/11/2024 ActiveStart: 05-28-2023 End: 98-62-2539hnyl 1 capsule by mouth in the morningFLUoxetine (PROzac) 40 MG capsule Indications: Moderate major depression, single episode (HCC) (CMS/HCC) TAKE 1 CAPSULE BY MOUTH IN THE MORNING 100 capsule 3 09/27/2023 Active fluticasone propionate 0.05 mg/actuat metered dose nasal spray (20 sources)Corticosteroidtake 2 spray(s) nasal route in the morningfluticasone (Flonase) 50 MCG/ACT nasal spray Administer 2 sprays into each nostril in the morning. Activefurosemide 20 mg oral tablet (20 sources)Loop DiureticStart: 04-25-2017 End: 79-02-5427nibr 1 tablet by mouth once dailyfurosemide (Lasix) 20 MG tablet Indications: Heart failure with reduced ejection fraction (HCC) TAKE 1 TABLET BY MOUTH EVERY DAY 90 tablet 3 03/30/2025 ActiveStart: 44-08-9834Gtmhkzuijo 20 MG Oral Tablet Quantity: 90 Refills: 0 Ordered: 11-Oct-2017 DO Start : 25-Apr-2017 Activehydrocortisone 10 mg/ml / neomycin 3.5 mg/ml / polymyxin b 53498 unt/ml otic suspension (2 sources)Aminoglycoside Antibacterial, Polymyxin-class Antibacterial, CorticosteroidStart: 08-15-2023 End: 11-97-0831ejwvgcfa-polymyxin-hydrocortisone (Cortisporin) 3.5-19206-2 otic suspension Indications: Acute otitis media, unspecified otitis media type Administer 3-4 drops into affected ear(s) in the morning and3-4 drops at noon and 3-4 drops in the evening and 3-4 drops before bedtime. Do all this for 10 days. 10 mL 0 08/15/2023 08/25/2023 Activelactulose 667 mg/ml oral solution (20 sources)Osmotic LaxativeStart: 39-54-8955rlcdjrbct (Chronulac) 10 GM/15ML solution Take 10 g by mouth in the morning and 10 g at noon and 10g in the evening. 04/30/2024 Activeleflunomide 20 mg oral tablet (20 sources)Antirheumatic Agenttake 1 tablet by mouth in the morningleflunomide (Arava) 20 MG tablet Take 20 mg by mouth in the morning. Activelisinopril 20 mg oral tablet (20 sources)Angiotensin Converting Enzyme Inhibitortake 1 tablet by mouth once dailylisinopril 20 MG tablet Take 20 mg by mouth Daily Activemodafinil 200 mg oral tablet (20 sources)Sympathomimetic-like AgentStart: 01-01-2024 End: 24-98-2441zioa 1 tablet by mouth once dailymodafinil (Provigil) 200 MG tablet Indications: Attention deficit disorder without hyperactivity Take 1 tablet (200 mg) by mouth Daily 30 tablet 10/03/2024 ActiveStart: 16-61-4191klam 1 tablet by mouth in the morningmodafinil (Provigil) 200 MG tablet Indications: Attention deficit disorder without hyperactivity Take 1 tablet (200 mg) by mouth in the morning. 30 tablet 3 04/30/2023 ActiveStart: 09-08-6629Csxsvpmbi 200 MG Oral Tablet Quantity: 90 Refills: 0 Ordered: 27-Nov-2017 DO Start : 28-Aug-2017 Activemorphine sulfate 15 mg extended release oral tablet (20 sources)Opioid AgonistStart: 01-30-2024 End: 31-49-1031uiff 1 tablet by mouth in the morning, then take 1 tablet by mouth every twelve hours at bedtimemorphine CR (MS Contin) 15 MG 12 hr tablet Indications: Lumbar radiculopathy Take 1 tablet (15 mg) by mouth in the morning and 1 tablet (15 mg) before bedtime. 60 tablet 06/26/2024 06/27/2024 Disconti nued (Other)Start: 01-19-9007aypu 1 tablet by mouth in the morning, then take 1 tablet by mouth every twelve hours at bedtimemorphine CR (MS Contin) 15 MG 12 hr tablet Indications: Radiculopathy, unspecified spinal region Take 1 tablet (15 mg) by mouth in the morning and 1 tablet (15 mg) before bedtime. 0 08/15/2023 ActiveStart: 08-01-2023 End: 54-06-9840pmyz 1 tablet by mouth in the morning, then take 1 tablet by mouth every twelve hours at bedtimemorphine CR (MS Contin) 30 MG 12 hr tablet Indications: Radiculopathy, unspecified spinal region Take 1 tablet (30 mg) by mouth in the morning and 1 tablet (30 mg) before bedtime. 60 tablet 0 08/01/2023 08/15/2023 Discontinued (Reorder)Start: 54-94-7507Wyrflrnu Sulfate ER 30 MG Oral Tablet Extended Release Quantity: 60 Refills: 0 Ordered: 30-Nov-2017 DO Start : 30-Nov-2017 ActiveoxyCODONE hydrochloride 5 mg oral tablet (20 sources)Opioid AgonistStart: 12-01-2024 End: 93-62-6547jdba 1 tablet by mouth onceoxyCODONE (Roxicodone) 5 MG immediate release tablet Indications: Rheumatoid arthritis involving multiple sites with positive rheumatoid factor (HCC) Take 1 tablet (5 mg) by mouth every 12 (twelve) hours if needed for severe pain 60 tablet 03/30/2025 04/29/2025 ActiveStart: 09-01-2024 End: 30-72-4970jroy 1 tablet by mouth onceoxyCODONE (Roxicodone) 10 MG immediate release tablet Indications: Rheumatoid arthritis involving multiple sites with positive rheumatoid factor (CMS/HCC) Take 1 tablet (10 mg) by mouth every 12 (twelve) hours if needed for severe pain 60 tablet 10/31/2024 12/01/2024 Discontinued (Reorder)pantoprazole 40 mg delayed release oral tablet (20 sources)Proton Pump InhibitorStart: 99-10-7925iliz 1 tablet by mouth in the morningpantoprazole (ProtoNix) 40 MG EC tablet Take 40 mg by mouth in the morning and 40 mg in the evening. Take before meals. 09/13/2023 Activepotassium chloride 10 meq extended release oral capsule (20 sources)Start: 09-24-2023 End: 24-23-2875lxrz 1 capsule by mouth once dailypotassium chloride ER (Micro-K) 10 MEQ ER capsule Indications: Hypokalemia TAKE 1 CAPSULE BY MOUTH EVERY DAY 90 capsule 3 09/23/2024 ActiveStart: 94-97-8199Jxgzycfsg Chloride ER 10 MEQ Oral Capsule Extended Release Quantity: 90 Refills: 0 Ordered: 30-Oct-2017 DO Start : 30-Oct-2017 ActiveriTUXimab (20 sources)MQ82-rtuzgffm Cytolytic AntibodyStart: 26-52-1909scXAOexdt (RITUXAN IV) every 6 (six) months. WITH RHEUMATOLOGY 11/22/2011 ActiveStart: 11-22-2011 riTUXimab (RITUXAN IV) every 6 (six) months. WITH RHEUMATOLOGY 0 11/22/2011 Activerosuvastatin calcium 10 mg oral tablet (8 sources)HMG-CoA Reductase InhibitorStart: 04-17-2025 End: 89-74-1698fpsh 1 tablet by mouth once dailyrosuvastatin (Crestor) 10 MG tablet Indications: Mixed hyperlipidemia Take 1 tablet (10 mg) by mouth Daily 30 tablet 11 04/17/2025 04/17/2026 ActiveStart: 99-30-6679Ytnzivlpwuga Calcium 20 MG Oral Tablet Quantity: 90 Refills: 0 Ordered: 11-Oct-2017 DO Start : 2016 ActiveStart: 38-21-0795Reyfnfnvhqdb Calcium 20 MG Oral Tablet Quantity: 90 Refills: 0 DO Start : 26-Mar-2017 ActiveSITagliptin 100 mg oral tablet (20 sources)Dipeptidyl Peptidase 4 InhibitorStart: 03-08-2018 End: 29-41-5535bqeg 1 tablet by mouth once dailySITagliptin (Januvia) 100 MG tablet Indications: Type 2 diabetes mellitus with hyperglycemia, unspecified whether terminal block assembler insulin use (HCC) Take 1 tablet (100 mg) by mouth Daily 90 tablet 3 10/31/2024 ActiveStart: 38-74-8455Cjrubty 100 MG Oral Tablet Quantity: 30 Refills: 0 Ordered: 05-Jun-2018 DO Start : 08-Mar-2018 Active Completed/Discontinued Medications MedicationDrug Class(es)DatesSig (Normalized)Sig (Original)acetaminophen 325 mg / oxyCODONE hydrochloride 5 mg oral tablet (6 sources)Opioid AgonistStart: 19-43-2097wrgZKPAGR-Acetaminophen 5-325 MG Oral Tablet Quantity: 120 Refills: 0 Ordered: 01-Nov-2017 DO Start : 01-Nov-2017 Active [id number] 200 actuat albuterol 0.09 mg/actuat metered dose inhaler (20 sources)beta2-Adrenergic AgonistStart: 94-92-6677CehTke HFA 108 (90 Base) MCG/ACT AERS Quantity: 8 Refills: 0 Ordered: 27-May-2018 DO Start : 31-Jan-2018 ActiveStart: 59-25-2290YpqEhy HFA 108 (90 Base) MCG/ACT Inhalation Aerosol Solution Quantity: 8 Refills: 0 DO Start : 31-Jan-2018 Activetake 2 puff(s) by inhalation every four hoursalbuterol HFA (ProAir HFA) 90 mcg/act inhaler Inhale 2 puffs every 4 (four) hours if needed. Activecarbidopa 25 mg / levodopa 100 mg oral tablet (6 sources)Aromatic Amino Acid Decarboxylation Inhibitor, Aromatic Amino Acid Start: 87-47-0241Hgklrekyg-Levodopa 25-100 MG Oral Tablet Quantity: 60 Refills: 0 Ordered: 11-Oct-2017 DO Start : 27-Jul-2017 Activecitalopram 40 mg oral tablet (6 sources)Serotonin Reuptake InhibitorStart: 72-26-2790Wpilzkblvi Hydrobromide 40 MG Oral Tablet Quantity: 90 Refills: 0 Ordered: 11-Oct-2017 DO Start : ActiveStart: 43-83-3898Oiyeawdwjo Hydrobromide 40 MG Oral Tablet Quantity: 90 Refills: 0 DO Start : 28-Mar-2017 Active0.65 ml exenatide 3.08 mg/ml pen injector (6 sources)GLP-1 Receptor AgonistStart: 15-17-9142Vtjjnrct 2 MG PEN Quantity: 4 Refills: 0 Ordered: 04-Nov-2017 DO Start : 25-Jan-2017 ActiveStart: 01-25-2017 Bydureon 2 MG Subcutaneous Pen-injector Quantity: 4 Refills: 0 DO Start : 25-Jan-2017 Activeglimepiride 4 mg oral tablet (6 sources)SulfonylureaStart: 51-88-9289Hggexcaotvt 4 MG Oral Tablet Quantity: 60 Refills: 0 Ordered: 11-Oct-2017 DO Start : 05-Dec-2016 ActiveStart: 12-05-2016 Glimepiride 4 MG Oral Tablet Quantity: 60 Refills: 0 DO Start : 05-Dec-2016 Activehydroxychloroquine sulfate 200 mg oral tablet (6 sources)Antimalarial, Antirheumatic AgentStart: 98-82-1409Dltpqxclbjgaqerzic Sulfate 200 MG Oral Tablet Quantity: 60 Refills: 0 Ordered: 20-Oct-2017 DO Start : 27-Aug-2017 ActiveStart: 60-58-2627Uwnvskcpulqnmcjoky Sulfate 200 MG Oral Tablet Quantity: 60 Refills: 0 DO Start : 27-Aug-2017 Activepregabalin 100 mg oral capsule (6 sources)Start: 99-74-1816Cuthjj 100 MG Oral Capsule Quantity: 90 Refills: 0 Ordered: 26-Nov-2017 DO Start : 26-Nov-2017 ActiveStart: 33-08-6895Nebtqa 100 MG Oral Capsule Quantity: 90 Refills: 0 DO Start : 26-Nov-2017 ActiverOPINIRole 2 mg oral tablet (6 sources)Nonergot Dopamine AgonistStart: 05-55-7516vRKFRKLyph HCl - 2 MG Oral Tablet Quantity: 30 Refills: 0 Ordered: 12-Oct-2017 DO Start : 26-Sep-2017 ActiveStart: 01-91-6454hYANWQTmsf HCl - 2 MG Oral Tablet Quantity: 30 Refills: 0 DO Start : 26-Sep-2017 ActivetiZANidine 4 mg oral tablet (6 sources)Central alpha-2 Adrenergic AgonistStart: 97-99-6567gtESVhqwpm HCl - 4 MG Oral Tablet Quantity: 90 Refills: 0 Ordered: 11-Oct-2017 DO Start : 17-May-2017 ActiveStart: 82-58-1456maVNOadato HCl - 4 MG Oral Tablet Quantity: 90 Refills: 0 DO Start : 17-May-2017 Active Problems Active Problems Problem ClassificationProblemDateDocumented DateEpisodic/ChronicAcquired foot deformities (2 sources)Hallux valgus (acquired), right foot; Translations: [Other hammer toe(s) (acquired), right foot]Onset: 38-41-0605RhvyuatBykatffd foot deformities (1 source)Bunion of right foot; Translations: [BUNION OF RIGHT FOOT]Onset: 48-57-1552ArevpqacWwhdo cerebrovascular disease (20 sources)Cerebral infarction; Translations: [Cerebral infarction, unspecified]Onset: 015542-17-5967TlshviyUbrmp myocardial infarction (20 sources)Non-ST elevation (NSTEMI) myocardial infarction; Translations: [Myocardial infarction]Onset: 931770-13-9134HkkdcyjJsazxbo disorders (20 sources)Mixed anxiety and depressive disorder; Translations: [Anxiety disorder, unspecified]Onset: 375359-22-4933VvpgbjoMvcdtkuh of urinary tract (1 source)Calculus of kidney;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 PCR, QUANT TB, HBCAB, HBSAB #### [facility] ,Hematocrit [Volume Fraction] of Blood by Automated countOrdered By: Clair Anton on 22-35-0758Stmepriilw (Bld) [Volume fraction]47.3 %High34.0-46.4 [facility] CampusComment on above:Performed By: #### ESR, CMP, CRP, CBC #### [place] [address] [place] #### HBSAG, HCV RX PCR, QUANT TB, HBCAB, HBSAB #### [facility] ,Hemoglobin [Mass/volume] in BloodOrdered By: Clair Anton on 03-18-2025 Hemoglobin (Bld) [Mass/Vol]16.1 g/qBZbko55.8-15.4FProtestant Deaconess HospitalComment on above:Performed By: #### ESR, CMP, CRP, CBC #### [place] [address] [place] #### HBSAG, HCV RX PCR, QUANT TB, HBCAB, HBSAB #### [facility] ,Hep C Ab wRfx to Qnt PCRon 45-08-3554Uphukduqm C Virus AntibodyNon-Reactive NormalNon ReactiveThe [facility] Health Physician GroupComment on above:Performed By: #### ESR, CMP, CRP, CBC #### [address] #### HBSAG, HCV RX PCR, QUANT TB, HBCAB, HBSAB #### [facility] ,Interpretation Hepatitis CCommentNormal.The [facility] Physician GroupComment on above:Result Comment: Not infected with HCV unless early or acute infection is suspected (which may be delayed in an immunocompromised individual), or other evidence exists to indicate HCV infection.Performed By: #### ESR, CMP, CRP, CBC #### [address] #### HBSAG, HCV RX PCR, QUANT TB, HBCAB, HBSAB #### [facility] ,Hepatitis B Core Antibodyon 55-53-6796Wsybjmlpt B Core AntibodyPositive Critically abnormalNegativeThe [facility] Health Physician GroupComment on above:Result Comment: Performed at: [facility] [place] [id number] Correctional Cook: Dudley Mirza PhD, Phone: [phone] By: #### ESR, CMP, CRP, CBC #### [address] #### HBSAG, HCV RX PCR, QUANT TB, HBCAB, HBSAB #### [facility] ,Hepatitis B Surface Antibodyon 17-53-5615Dapbbfvjw B Surface Antibody Non-ReactiveNormal.The [facility] Physician GroupComment on above:Result Comment: Non Reactive: Not immune to HBV infection. Anti-HBs undetectable or less than 10 mIU/mL. Reactive: Evidence of HBV immunity. Anti-HBs levels greater than 10 mIU/mL.Performed By: #### ESR, CMP, CRP, CBC #### [address] [place] [address] [place] #### HBSAG, HCV RX PCR, QUANT TB, HBCAB, HBSAB #### [facility] ,Hepatitis B Surface Antigenon 97-87-7953NBkMr ScreenNegativeNormalNegativeThe [facility] Health Physician GroupComment on above:Result Comment: PERFORMED BY: [place] [address] PATHOLOGIST RIGGING SLINGER URIEL SCHMITT M.D.Performed By: #### ESR, CMP, CRP, CBC #### [address] #### HBSAG, HCV RX PCR, QUANT TB, HBCAB, HBSAB #### [facility] ,Leukocytes [#/volume] corrected for nucleated erythrocytes in Blood by Automated counOrdered By: Clair Anton on 04-06-6795WUR corrected for nucl RBC Auto (Bld) [#/Vol]8.5 10*3/uL3.8-11.[address] [place], [place] [address]Leukocytes [#/volume] in Blood by Automated countOrdered By: Clair Anton on 03-18-2025 WBC (Bld) [#/Vol]8.5 10*3/uLNormal3.8-11.[address] [place] [address] Comment on above:Performed By: #### ESR, CMP, CRP, CBC #### [address] #### HBSAG, HCV RX PCR, QUANT TB, HBCAB, HBSAB #### [facility] ,Lymphocytes [#/volume] in Blood by Automated countOrdered By: Clair Anton on 24-56-9260Wofcwenzmuv (Bld) [#/Vol]1.3 10*3/uLNormal1.00-4.8[facility] CampusComment on above:Performed By: #### ESR, CMP, CRP, CBC #### [address] #### HBSAG, HCV RX PCR, QUANT TB, HBCAB, HBSAB #### [facility] ,Lymphocytes/100 leukocytes in Blood by Automated countOrdered By: Clair Anton on 18-75-1667Ibiiyrqufth/100 WBC (Bld)15.6 %Normal.[facility] South CampusComment on above:Performed By: #### ESR, CMP, CRP, CBC #### [facility] [address] [place] [address] #### HBSAG, HCV RX PCR, QUANT TB, HBCAB, HBSAB #### [facility] ,MCH [Entitic mass] by Automated countOrdered By: Clair Anton on 72-09-0084AZF (RBC) [Entitic mass]29.4 ptVidrva22.7-34.3FProtestant Deaconess Hospital Comment on above:Performed By: #### ESR, CMP, CRP, CBC #### [address] #### HBSAG, HCV RX PCR, QUANT TB, HBCAB, HBSAB #### [facility] ,MCHC Auto (RBC) [Mass/Vol]Ordered By: Clair Anton on 58-65-6618KLMB (RBC) [Mass/Vol]34.0 g/dL32.0-35.0[facility] South CampusMCV [Entitic volume] by Automated countOrdered By: Clair Anton on 51-33-2420MIL (RBC) [Entitic vol]86.5 dKOygvtm86-521GlrsvqtjyFirelands Regional Medical Center South CampusComment on above:Performed By: #### ESR, CMP, CRP, CBC #### [facility] [address] [place] [address] [place] #### HBSAG, HCV RX PCR, QUANT TB, HBCAB, HBSAB #### [facility] ,Monocytes [#/volume] in Blood by Automated countOrdered By: Clair Anton on 84-32-1859Nwgztuyky (Bld) [#/Vol]0.4 10*3/uLNormal0.0-0.8[facility] CampusComment on above:Performed By: #### ESR, CMP, CRP, CBC #### [facility] [address] [place] [address] [place] #### HBSAG, HCV RX PCR, QUANT TB, HBCAB, HBSAB #### [facility] ,Monocytes/100 leukocytes in Blood by Automated countOrdered By: Clair Anton on 53-79-4273Fcmptapbj/100 WBC (Bld)4.4 %Normal.[facility] CampusComment on above:Performed By: #### ESR, CMP, CRP, CBC #### [facility] [address] [place] [address] [place] #### HBSAG, HCV RX PCR, QUANT TB, HBCAB, HBSAB #### [facility] ,Neutrophils [#/volume] in Blood by Automated countOrdered By: Clair Anton on 15-61-5860Euwvsibjnbe (Bld) [#/Vol]6.6 10*3/uLNormal1.8-7.7FProtestant Deaconess HospitalComment on above:Performed By: #### ESR, CMP, CRP, CBC #### [place] [address] [place] #### HBSAG, HCV RX PCR, QUANT TB, HBCAB, HBSAB #### [facility] ,Neutrophils/100 leukocytes in Blood by Automated countOrdered By: Clair Anton on 39-24-3418Hfggdxcmstw/100 WBC (Bld)77.9 %Normal.[facility] CampusComment on above:Performed By: #### ESR, CMP, CRP, CBC #### [facility] [address] [place] [address] [place] #### HBSAG, HCV RX PCR, QUANT TB, HBCAB, HBSAB #### [facility] ,No Panel InformationOrdered By: Clair Anton on 45-89-1877Sajkckjl Creatinine Clearance (ChemN/AFProtestant Deaconess HospitalNucleated erythrocytes [Presence] in Blood by Automated countOrdered By: Clair Anton on 03-18-2025 Nucleated RBC Auto Ql (Bld)0.2 /100{WBC}0-0.5FProtestant Deaconess Hospital Platelet mean volume [Entitic volume] in Blood by Automated countOrdered By: Clair Anton on 58-04-2578Znyfpupr mean volume (Bld) [Entitic vol]10.2 fLNormal 6.3-10.7FProtestant Deaconess HospitalComment on above:Performed By: #### ESR, CMP, CRP, CBC #### [place] [address] [place] #### HBSAG, HCV RX PCR, QUANT TB, HBCAB, HBSAB #### [facility] ,Platelets [#/volume] in Blood by Automated countOrdered By: Clair Anton on 93-85-8554Funvvlgbi (Bld) [#/Vol]141 10*3/wTLcm647-917SpordkskcFirelands Regional Medical Center South CampusComment on above:Performed By: #### ESR, CMP, CRP, CBC #### [place] [address] [place] #### HBSAG, HCV RX PCR, QUANT TB, HBCAB, HBSAB #### [facility] ,Potassium [Moles/volume] in Serum or PlasmaOrdered By: Clair Anton on 87-49-7894Zgqjbpfld [Moles/Vol]4.5 mmol/LNormal3.5-5.1FProtestant Deaconess HospitalComment on above:Performed By: #### ESR, CMP, CRP, CBC #### [place] [address] [place] #### HBSAG, HCV RX PCR, QUANT TB, HBCAB, HBSAB #### [facility] ,Protein [Mass/volume] in Serum or PlasmaOrdered By: Clair Anton on 03-18-2025 Protein [Mass/Vol]6.7 g/dLNormal6.4-8.9[facility] South CampusComment on above:Performed By: #### ESR, CMP, CRP, CBC #### [place] [address] [place] #### HBSAG, HCV RX PCR, QUANT TB, HBCAB, HBSAB #### [facility] ,QuantiFERON TB Goldon 54-02-6094MZWO CriteriaCommentNormal.The [facility] Health Physician GroupComment on above:Result Comment: QuantiFERON-TB Gold Plus is a qualitative indirect test for M tuberculosis infection (including disease) and is intended for use in conjunction with risk assessment, radiography, and other medical and diagnostic evaluations. The QuantiFERON-TB Gold Plus result is determined by subtracting the Nil value from either TB antigen (Ag) value. The Mitogen tube serves as a control for the test.Performed By: #### ESR, CMP, CRP, CBC #### [address] #### HBSAG, HCV RX PCR, QUANT TB, HBCAB, HBSAB #### [facility] ,Quant TB Ag Value0.03Normal.The [facility] Physician GroupComment on above: Performed By: #### ESR, CMP, CRP, CBC #### [place] [address] [place] #### HBSAG, HCV RX PCR, QUANT TB, HBCAB, HBSAB #### [facility] ,Quant TB Gold PlusNegativeNormalNegativeThe [facility] Health Physician GroupComment on above:Result Comment: No response to M tuberculosis antigens detected. Infection with M tuberculosis is unlikely, but high risk individuals should be considered for additional testing (ATS/IDSA/CDC Clinical Practice Guidelines, 2017). The reference range is an Antigen minus Nil result of <0.35 IU/mL. The specimen received for QuantiFERON testing was incubated by the ordering institution. Specific procedures outlined in our Directory of Services and in the package insert for the QuantiFERON Gold (In Tube) test must be followed to enable for proper stimulation of cells for the production of interferon gamma. Chemiluminescence immunoassay methodology Performed at: [facility] [address] [id number] Correctional Cook: Dudley Mirza PhD, Phone: [phone] PERFORMED BY: [place] [address] PATHOLOGIST RIGGING SLINGER URIEL S KESHIA M.D.Performed By: #### ESR, CMP, CRP, CBC #### [address] #### HBSAG, HCV RX PCR, QUANT TB, HBCAB, HBSAB #### [facility] ,Quant TB2 Ag Value0.02Normal.The [facility] Physician GroupComment on above: Performed By: #### ESR, CMP, CRP, CBC #### [facility] [address] [place] [address] [place] #### HBSAG, HCV RX PCR, QUANT TB, HBCAB, HBSAB #### [facility] ,Quantiferon Nil Value0.03Normal.The [facility] Physician GroupComment on above: Performed By: #### ESR, CMP, CRP, CBC #### [address] #### HBSAG, HCV RX PCR, QUANT TB, HBCAB, HBSAB #### [facility] ,Quantiferon TB Mitogen>10.00Normal.The [facility] Physician GroupComment on above:Performed By: #### ESR, CMP, CRP, CBC #### [address] #### HBSAG, HCV RX PCR, QUANT TB, HBCAB, HBSAB #### [facility] ,Serum globulin measurement by calculation (mass/volume)Ordered By: Clair Anton on 17-78-0602Yijczkxj (S) [Mass/Vol]2.4 g/dLNoVeterans Health AdministrationComment on above:Performed By: #### ESR, CMP, CRP, CBC #### [place] [address] [place] #### HBSAG, HCV RX PCR, QUANT TB, HBCAB, HBSAB #### [facility] ,Serum or plasma albumin/globulin mass ratioOrdered By: Clair Anton on 20-59-0709Pudihrd/Globulin [Mass ratio]1.8 {ratio}[facility] Grant Medical CenterComment on above:Performed By: #### ESR, CMP, CRP, CBC #### [facility] [address] [place] [address] #### HBSAG, HCV RX PCR, QUANT TB, HBCAB, HBSAB #### [facility] ,Serum or plasma anion gap determinationOrdered By: Clair Anton on 03-18-2025 Anion gap [Moles/Vol]14.5 mmol/LNormal6.0-15.0[facility] Comment on above:Performed By: #### ESR, CMP, CRP, CBC #### [facility] [address] [place] [address] #### HBSAG, HCV RX PCR, QUANT TB, HBCAB, HBSAB #### [facility] ,Sodium [Moles/volume] in Serum or PlasmaOrdered By: Clair Anton on 03-18-2025 Sodium [Moles/Vol]135 mmol/XNvh649-256HeqsftksbFirelands Regional Medical Center South CampusComment on above:Performed By: #### ESR, CMP, CRP, CBC #### [facility] [address] [place] [address] #### HBSAG, HCV RX PCR, QUANT TB, HBCAB, HBSAB #### [facility] ,Urea nitrogen [Mass/volume] in Serum or PlasmaOrdered By: Clair Anton on 76-83-7282Ueko nitrogen [Mass/Vol]22 mg/dLNormal7-25[facility] CampusComment on above:Performed By: #### ESR, CMP, CRP, CBC #### [facility] [address] [place] [address] #### HBSAG, HCV RX PCR, QUANT TB, HBCAB, HBSAB #### [facility] ,ALBUMIN, RANDOM URINE W/CREATININEon 56-21-5473IZXLXXK, URINE2.1 mg/dLNormalSee Note:Quest DiagnosticsComment on above:Order Comment: FASTING:YES FASTING: YESResult Comment: Reference Range: Reference Range Not establishedPerformed By: #### 53042, 6517, 496 #### [facility] [address], [address] [place] [address] Legal Referee: Johnny Padilla MDALBUMIN/CREATININE RATIO, RANDOM URINE33 mg/g creatHigh<30Quest DiagnosticsComment on above:Order Comment: FASTING:YES FASTING: YESResult Comment: The ADA defines abnormalities in albumin excretion as follows: Albuminuria Category Result (mg/g creatinine) Normal to Mildly increased <30 Moderately increased 30-299 Severely increased > OR = 300 The ADA recommends that at least two of three specimens collected within a 3-6 month period be abnormal before considering a patient to be within a diagnostic category.Performed By: #### 43319, 6517, 496 #### [facility] [place] [address] Legal Referee: Johnny Padilla MDCreatinine (U) [Mass/Vol]63 mg/rTZcmtkl32-492 [facility] DiagnosticsComment on above:Order Comment: FASTING:YES FASTING: YESPerformed By: #### 30586, 6517, 496 #### [facility] [address], [address] [place] [address] Legal Referee: Johnny GARCIAOMPREHENSIVE METABOLIC PANELon 09-02-2024 Albumin [Mass/Vol]4.7 g/dLNormal3.6-5.1Quest DiagnosticsComment on above: Performed By: #### 85477, 6517, 496 #### [facility] [place] [address] Legal Referee: Johnny Padilla MDAlbumin/Globulin [Mass ratio]2.0 {ratio}Normal 1.0-2.5Quest DiagnosticsComment on above:Performed By: #### 44236, 6517, 496 #### [facility] [place] [address] Legal Referee: Johnny Padilla MDALP [Catalytic activity/Vol]86 U/GCoxzny57-340 [facility] DiagnosticsComment on above:Performed By: #### 06852, 6517, 496 #### [facility] of [address], [address] [place] [address] Legal Referee: Johnny Padilla MDALT [Catalytic activity/Vol]12 U/LNormal6-29 [facility] DiagnosticsComment on above:Performed By: #### 39546, 6517, 496 #### [facility] of [address], [address] [place] [address] Legal Referee: Johnny Padilla MDAST [Catalytic activity/Vol]15 U/UJdbyem40-96 [facility] DiagnosticsComment on above:Performed By: #### 90903, 6517, 496 #### [facility] of [address], [address] [place] [address] Legal Referee: Johnny Padilla MDBilirubin [Mass/Vol]0.8 mg/dLNormal0.2-1.2 Quest DiagnosticsComment on above:Performed By: #### 15058, 6517, 496 #### [facility] of [address], [address] [place] [address] Legal Referee: Johnny Padilla MDBUN/CREATININE RATIOSEE NOTE:Normal6-22Quest DiagnosticsComment on above:Result Comment: Not Reported: BUN and Creatinine are within reference range.Performed By: #### 83540, 6517, 496 #### [facility] of [address], [address] [place] [address] Legal Referee: Johnny Padilla MDCalcium [Mass/Vol]9.4 mg/dLNormal8.6-10.4Quest DiagnosticsComment on above:Performed By: #### 69927, 6517, 496 #### [facility] of [address], [address] [place] [address] Legal Referee: Johnny Padilla MDChloride [Moles/Vol]103 mmol/DUioxwt97-836 Quest DiagnosticsComment on above:Performed By: #### 36453, 6517, 496 #### [facility] of [address], [address] [place] [address] Legal Referee: Johnny Padilla MDCO2 [Moles/Vol]23 mmol/EOznqei98-38Tmpzg DiagnosticsComment on above:Performed By: #### 49328, 6517, 496 #### [facility] [address], [address] [place] [address] Legal Referee: Johnny GARCIAreatinine [Mass/Vol]0.55 mg/dLNormal0.50-1.05 [facility] DiagnosticsComment on above:Performed By: #### 25784, 6517, 496 #### [facility] [address], [address] [place] [address] Legal Referee: Johnny Padilla MDGFR/1.73 sq M.predicted among non-blacks MDRD (S/P/Bld) [Vol rate/Area]101 mL/min/{1.73_m2}Normal> OR = 60[facility] Comment on above:Performed By: #### 61827, 6517, 496 #### [facility] [address], [address] [place] [address] Legal Referee: Johnny Padilla MDGlobulin (S) [Mass/Vol]2.4 g/dLNormal1.9-3.7 [facility] DiagnosticsComment on above:Performed By: #### 92487, 6517, 496 #### [facility] [place] [address] Legal Referee: Johnny Padilla MDGlucose [Mass/Vol]125 mg/jPBxpr09-18Lqwdb DiagnosticsComment on above:Result Comment: Fasting reference interval For someone without known diabetes, a glucose value between 100 and 125 mg/dL is consistent with prediabetes and should be confirmed with a follow-up test.Performed By: #### 74030, 6517, 496 #### [facility] [address], [address] [place] [address] Legal Referee: Johnny Padilla MDPotassium [Moles/Vol]4.1 mmol/LNormal3.5-5.3 [facility] DiagnosticsComment on above:Performed By: #### 87280, 6517, 496 #### [facility] [address], [address] [place] [address] Legal Referee: Johnny Padilla MDProtein [Mass/Vol]7.1 g/dLNormal6.1-8.1Quest DiagnosticsComment on above:Performed By: #### 33780, 6517, 496 #### [facility] [address], [address] [place] [address] Legal Referee: Johnny Padilla MDSodium [Moles/Vol]138 mmol/WBowzzc449-021Nuumh DiagnosticsComment on above:Performed By: #### 90500, 6517, 496 #### [facility] [address], [address] [place] [address] Legal Referee: Johnny Padilla MDUrea nitrogen [Mass/Vol]19 mg/dLNormal7-25 [facility] DiagnosticsComment on above:Performed By: #### 34239, 6517, 496 #### [facility] [address], [address] [place] [address] Legal Referee: Johnny Padilla MDHEMOGLOBIN A1con 37-29-9326JOGXHBRYUY A1c6.0 % of total HgbHigh<5.7Quest DiagnosticsComment on above:Result Comment: For someone without known diabetes, a hemoglobin A1c value between 5.7% and 6.4% is consistent with prediabetes and should be confirmed with a follow-up test. For someone with known diabetes, a value <7% indicates that their diabetes is well controlled. A1c targets should be individualized based on duration of diabetes, age, comorbid conditions, and other considerations. This assay result is consistent with an increased risk of diabetes. Currently, no consensus exists regarding use of hemoglobin A1c for diagnosis of diabetes for children.Performed By: #### 24973, 6517, 496 #### [facility] [address], [address] [place] [address] Legal Referee: Johnny Padilla MDCT LUNG SCREENING LOW DOSEon 33-98-75[address] [address] [address] Scan Report Signed Patient: SOUMYA ABDI MR#: [id number] : 1960 Acct:[id number] Age/Sex: 64 / F ADM Date: 08/01/24 Loc: MAMMO Attending Dr: MARIA METCALF Ordering Physician: MARIA METCALF Date of Service: 08/01/24 Procedure(s): CT lung screening low-dose Accession Number(s): [id number] cc: LUDWIN WEN [place] [address] Patient Name: SOUMYA ABDI MRN: [id number] date: 1960 Sex: F Assigned Patient Location: MAMMO Current Patient Location: Accession/Order Number: [id number] Exam Date: 08/01/2024 13:24 Report Date: 08/04/2024 10:20 At the request of: MARIA METCALF Procedure: CT lung screening low-dose EXAMINATION: CT lung screening low-dose HISTORY: SCREENING FOR LUNG CANCER COMPARISON: CT chest 09/28/2022 TECHNIQUE: Axial, Coronal, and Sagittal images were created without the administration of IV contrast material. Dose reduction techniques were achieved by using automated exposure control and/or adjustment of mA and/or kV according to patient size and/or use of iterative reconstruction technique. FINDINGS: LUNGS: Mild emphysematous changes. No suspicious nodules or acute infiltrates. PLEURA: No mass, effusion, or pneumothorax. VASCULATURE: No abnormality. MELISSA: No mass or pathologic adenopathy. MEDIASTINUM: No mass or pathologic adenopathy. CARDIAC: No enlargement, pericardial thickening, or pericardial effusion. Coronary Artery calcifications: Coronary calcifications are heavy. AORTA: No aneurysm or dissection. CHEST WALL: No mass or axillary adenopathy BONES: Mechanical fusion of lower cervical spine. Multilevel mild-moderate degenerative changes of thoracic spine. LIMITED ABDOMEN: Nodular liver margins; nonspecific but can be seen with cirrhosis. Limited images of the upper abdomen. OTHER: Negative. CT/CT lung screening low-dose IMPRESSION: 1. Lung-RADS Category 1 Negative. No nodules and definitely benign nodules. Continue annual screening with LDCT in 12 months. Electronically authenticated by: DIAZ MONTEMAYOR Date: 08/04/2024 10:20 Dictated By: Diaz Montemayor M.D. Signed By: 08/04/24 1023 DD/ 1020 TD/TT: Reach Truck Operator:KIERANadiologciara, Radiologist, - 08/04/2024 [place] [address] CT Scan Report Signed Patient: SOUMYA ABDI MR#: [id number] : 1960 Acct:[id number] Age/Sex: 64 / F ADM Date: 08/01/24 Loc: MAMMO Attending Dr: MARIA METCALF Ordering Physician: MARIA METCALF Date of Service: 08/01/24 Procedure(s): CT lung screening low-dose Accession Number(s): [id number] cc: LUDWIN WEN [place] [address] Patient Name: SOUMYA ABDI MRN: [id number] date: 1960 Sex: F Assigned Patient Location: [facility] Current Patient Location: Accession/Order Number: [id number] Exam Date: 08/01/2024 13:24 Report Date: 08/04/2024 10:20 At the request of: MARIA METCALF Procedure: CT lung screening low-dose EXAMINATION: CT lung screening low-dose HISTORY: SCREENING FOR LUNG CANCER COMPARISON: CT chest 09/28/2022 TECHNIQUE: Axial, Coronal, and Sagittal images were created without the administration of IV contrast material. Dose reduction techniques were achieved by using automated exposure control and/or adjustment of mA and/or kV according to patient size and/or use of iterative reconstruction technique. FINDINGS: LUNGS: Mild emphysematous changes. No suspicious nodules or acute infiltrates. PLEURA: No mass, effusion, or pneumothorax. VASCULATURE: No abnormality. MELISSA: No mass or pathologic adenopathy. MEDIASTINUM: No mass or pathologic adenopathy. CARDIAC: No enlargement, pericardial thickening, or pericardial effusion. Coronary Artery calcifications: Coronary calcifications are heavy. AORTA: No aneurysm or dissection. CHEST WALL: No mass or axillary adenopathy BONES: Mechanical fusion of lower cervical spine. Multilevel mild-moderate degenerative changes of thoracic spine. LIMITED ABDOMEN: Nodular liver margins; nonspecific but can be seen with cirrhosis. Limited images of the upper abdomen. OTHER: Negative. CT/CT lung screening low-dose IMPRESSION: 1. Lung-RADS Category 1 Negative. No nodules and definitely benign nodules. Continue annual screening with LDCT in 12 months. Electronically authenticated by: DIAZ MONTEMAYOR Date: 08/04/2024 10:20 Dictated By: Diaz Montemayor M.D. Signed By: 08/04/24 1023 DD/ 1020 TD/TT: Reach Truck Operator: [facility]Bro[facility] HospitalRadiology Study observation (narrative)[facility]Brooks HospitalCT LUNG SCREENING LOW DOSEOrdered By: Radiologist Radiology on 58-52-8161TPEDMercy McCune-Brooks Hospital Work Phone: all CBC WITH AUTO DIFFon 23-37-6171FETMSLFKO ABSOLUTE AVUE8ZEZJ HealthcareBasophils/100 WBC (Bld)0.7 %0.2 - 2.0 %[facility] Healthcare Eosinophils/100 WBC (Bld)2.4 %0.9 - 7.0 %[facility] HealthcareErythrocyte distribution width (RBC) [Ratio]13.3 %11.0 - 15.0 %[facility] HealthcareHematocrit (Bld) [Volume fraction]44.8 %36.0 - 48.0 %[facility]-Brooks HospitalHemoglobin (Bld) [Mass/Vol]15 g/dL 12.0 - 16.0 g/dLMercy McCune-Brooks HospitalIMMATURE GRANULOCYTES ABS AUTO0.02NOCox Walnut Lawn Immature granulocytes/100 WBC (Bld)0.3 %0.0 - 0.5 %[facility] HealthcareInterpretation and review of laboratory resultsAbnormalNOCox Walnut LawnLYMPHOCYTES ABSOLUTE AUTO0.8LowNOMS Peoples HospitalLymphocytes/100 WBC (Bld)13.7 %Low20.5 - 60.0 %[facility] HospitalMCH (RBC) [Entitic mass]29.1 pg26.7 - 34.0 pgNOCox Walnut LawnMCHC (RBC) [Mass/Vol]33.5 g/dL29.9 - 35.2 g/dLSaint Francis Hospital & Health ServicesV (RBC) [Entitic vol]87 fL 81.0 - 99.0 fLNOMS HealthcareMONOCYTES ABSOLUTE AUTO0.5NOMS Healthcare Monocytes/100 WBC (Bld)7.8 %1.7 - 12.0 %NOMS HealthcareNEUTROPHILS ABSOLUTE AUTO 4.6NOMS HealthcareNeutrophils/100 WBC (Bld)75.1 %High43.0 - 75.0 %NOMS HealthcarePlatelet mean volume (Bld) [Entitic vol]10.9 fL9.5 - 13.5 fLNOMS HealthcareTBH EO #0.2NOMS HealthcareTBH BYY740IqlNRQN HealthcareTBH RBC5.15NOMS HealthcareTBH WBC6.1NOMS HealthcareCLINISYNCNOMS HealthcareMM TOMOSYNTHESIS SCREENING BIon 80-12-2802B[place] [address] Mammography Report Signed Patient: SOUMYA ABDI MR#: [id number] : 1960 Acct:[id number] Age/Sex: 64 / F ADM Date: 08/01/24 Loc: MAMMO Attending Dr: MARIA METCALF Ordering Physician: MARIA METCALF Results: Date of Service: 08/01/24 Follow Up: Procedure(s): MM tomosynthesis screening BI Accession Number(s): [id number] cc: LUDWIN WEN ; MARIA METCALF Patient Name: SOUMYA ABDI MR#: [id number] : 1960 Exam Date: 08/01/2024 Ordering Doctor: MRS. MARIA METCALF TECHNICAL DELIVERY MANAGER-C RADIOLOGY REPORT PROCEDURE: MM TOMOSYNTHESIS SCREENING BI [...] with lung cancer at age 58; Aunt-paternal with breast cancer at age 52. LOCATION: [facility] BREAST COMPOSITION: There are scattered areas of fibroglandular density. FINDINGS: DIAGNOSTIC CATEGORY 2--BENIGN FINDING. NO CHANGE FROM COMPARISON. Scattered benign-appearing calcifications are present. Scattered benign-appearing lymph nodes are present. RIGHT BREAST: No significant suspicious finding. LEFT BREAST: No significant suspicious finding. RECOMMENDATIONS: ROUTINE MAMMOGRAM AND CLINICAL EVALUATION IN 12 MONTHS. PLEASE NOTE: A NORMAL MAMMOGRAM DOES NOT EXCLUDE THE POSSIBILITY OF BREAST CANCER. A CLINICALLY SUSPICIOUS PALPABLE LUMP SHOULD BE BIOPSIED. Dictated by: Tamiko Bynum MD on 08/01/2024 at 15:05 Approved by: Tamiko Bynum MD on 08/01/2024 at 15:06 Dictated By: Tamiko Bynum M.D. Signed By: 08/01/24 1507 DD/ 1506 TD/TT: Reach Truck Operator:TBHRadiology, Radiologist, - 08/01/2024 [place] [address] Mammography Report Signed Patient: SOUMYA ABDI MR#: [id number] : 1960 Acct:[id number] Age/Sex: 64 / F ADM Date: 08/01/24 Loc: MAMMO Attending Dr: MARIA METCALF Ordering Physician: MARIA METCALF Results: Date of Service: 08/01/24 Follow Up: Procedure(s): MM tomosynthesis screening BI Accession Number(s): [id number] cc: LUDWIN WEN ; MARIA METCALF Patient Name: SOUMYA ABDI MR#: [id number] : 1960 Exam Date: 08/01/2024 Ordering Doctor: MRS. MARIA METCALF TECHNICAL DELIVERY MANAGER-C RADIOLOGY REPORT PROCEDURE: MM TOMOSYNTHESIS SCREENING BI [...] with lung cancer at age 58; Aunt-paternal with breast cancer at age 52. LOCATION: [facility] BREAST COMPOSITION: There are scattered areas of fibroglandular density. FINDINGS: DIAGNOSTIC CATEGORY 2--BENIGN FINDING. NO CHANGE FROM COMPARISON. Scattered benign-appearing calcifications are present. Scattered benign-appearing lymph nodes are present. RIGHT BREAST: No significant suspicious finding. LEFT BREAST: No significant suspicious finding. RECOMMENDATIONS: ROUTINE MAMMOGRAM AND CLINICAL EVALUATION IN 12 MONTHS. PLEASE NOTE: A NORMAL MAMMOGRAM DOES NOT EXCLUDE THE POSSIBILITY OF BREAST CANCER. A CLINICALLY SUSPICIOUS PALPABLE LUMP SHOULD BE BIOPSIED. Dictated by: Tamiko Bynum MD on 08/01/2024 at 15:05 Approved by: Tamiko Bynum MD on 08/01/2024 at 15:06 Dictated By: Tamiko Bynum M.D. Signed By: 08/01/24 1507 DD/ 1506 TD/TT: Reach Truck Operator: [facility] HospitalRadiology Study observation (narrative)[facility] TOMOSYNTHESIS SCREENING BIOrdered By: Radiologist Radiology on 77-82-6628DIRXMercy McCune-Brooks Hospital Work Phone: HbA1c (Bld) [Mass fraction]on 93-14-9802NNVPMercy McCune-Brooks HospitalLaboratory - Hematology and Cell countson 28-02-3115CqI5n (Bld) [Mass fraction]6 %[facility] HealthcareFollow-Upon [id number] Soumya Abdi 1960 F Date Provider Department Center 04/30/2024 [facility] ROS[facility] No family history on file Level of Service:03910 NM OFFICE/OUTPATIENT ESTABLISHED MOD MDM 30 MIN () Reason for Visit and Comments: Follow-up [[id number]][facility] HospitalRefillon 04-18-2024 [id number] Soumya Abdi 1960 Date Provider Department Center 04/18/2024 BENNIE HOWARD [facility] No family history on file Reason for Visit and Comments: Med Refill [[id number]][facility]36on Plate Painter left a message for the patient to call the office, wanted to know if she wants to switch appointment to June.[address] [phone] to schedule EGD. No answer. Left a VM to return my call @ [phone] Patient was supposed to be on PPI BID x 8 weeks only for duodenal ulcer. No indication to continue. She needs to schedule an office follow up for cirrhosis with Dr Abbasi or Dr Vora[address] [phone] called Pharmacy to see what was up with prescription and [facility] stated they would put [facility] for a refill.[facility] HospitalRefillon [id number] Soumya Abdi 1960 F Date Provider Department [place] 11/17/2023 KIP BARNETT [facility] No family history on file Reason for Visit and Comments: Med Change Request [411][facility]cy HospitalAlanine aminotransferase [Enzymatic activity/volume] in Serum or PlasmaOrdered By: Howard Kolb on 95-82-9615RSP [Catalytic activity/Vol]14 U/L7-52[facility] CampusAlbumin [Mass/volume] in Serum or Plasma by Bromocresol green (BCG) dye binding methoOrdered By: Howard Kolb on 99-58-2045Xhjtoko BCG dye [Mass/Vol]4.4 g/dL3.5-5.7FProtestant Deaconess HospitalAlkaline phosphatase [Enzymatic activity/volume] in Serum or PlasmaOrdered By: Howard Kolb on 08-49-5691PRP [Catalytic activity/Vol]68 U/N21-541XprcsotwuFirelands Regional Medical Center South CampusAspartate aminotransferase [Enzymatic activity/volume] in Serum or PlasmaOrdered By: Howard Kolb on 94-72-5208NXL [Catalytic activity/Vol]16 U/L 13-39[facility] CampusBilirubin.total [Mass/volume] in Serum or PlasmaOrdered By: Howard Kolb on 58-85-6589Lrageodua [Mass/Vol]0.9 mg/dL 0.3-1.0[facility] CampusCalcium [Mass/volume] in Serum or Plasma Ordered By: Howard Kolb on 09-18-0699Kyhkhir [Mass/Vol]9.4 mg/dL8.6-10.3 [facility] CampusCarbon dioxide, total [Moles/volume] in Serum or PlasmaOrdered By: Howard Kolb on 25-58-4295KF7 [Moles/Vol]26.2 mmol/L 21.0-31.0[facility] CampusChloride [Moles/volume] in Serum or PlasmaOrdered By: Howard Kolb on 82-18-2156Haezytdc [Moles/Vol]107 mmol/L 98-107[facility] CampusCreatinine [Mass/volume] in Serum or PlasmaOrdered By: Howard Kolb on 83-46-2940Pypbqvhtgu [Mass/Vol]0.72 mg/dL 0.60-1.20[facility] South CampusGlobulin Calc (S) [Mass/Vol]Ordered By: Howard Kolb on 97-97-2173Cjdqhnyy (S) [Mass/Vol]2.0 g/dLFirelands Regional Medical Center South CampusGlucose [Mass/volume] in Serum or PlasmaOrdered By: Howard Kolb on 28-69-4025Hebciaf [Mass/Vol]138 mg/mV17-383QhutzxnreFirelands Regional Medical Center South CampusComment on above:ADA recommended reference rangeRandom Glucose Reference Range is dependent on time and content of last meal. Glucose of more than 200 mg/dL in a nonstressed, ambulatory subject supports the diagnosisof Diabetes Mellitus.INR in Platelet poor plasma by Coagulation assayOrdered By: Howard Kolb on 69-97-1898SGI Coag (PPP) [Relative time]1.1 {INR}[facility] South CampusComment on above:INR Therapeutic Range A) Pre- and Peroperative OAT started two weeks before surgery. NOT HIP SURGERY: 1.5 - 2.5 HIP SURGERY: 2 - 3B) Primary and secondary prevention of venous THROMBOSIS: 2 - 3C) Active venous thrombosis, pulmonary embolismand prevention of recurrent venous thrombosis: 2 - 3D) Prevention of arterial thromboembolismincluding patients with mechanical heart valves: 3 - 4.5No Panel InformationOrdered By: Howard Kolb on 68-65-0481Cqpegjvlh GFR (CKD-EPI)> 60.0 mL/MinFirelands Regional Medical Center South CampusPharmacy Creatinine Clearance (ChemN/AFProtestant Deaconess HospitalPotassium [Moles/volume] in Serum or PlasmaOrdered By: Howard Kolb on 99-25-3085Ajlhatmce [Moles/Vol]3.9 mmol/L3.5-5.1FProtestant Deaconess HospitalProtein [Mass/volume] in Serum or PlasmaOrdered By: Howard Kolb on 89-80-5449Kwsllcl [Mass/Vol]6.4 g/dL6.4-8.9[facility] Prothrombin time (PT)Ordered By: Howard Kolb on 98-95-8756SY Coag (PPP) [Time]12.1 s9.0-12.9[facility] South CampusComment on above:A hematocrit value greater than 55% may lead to inaccurate results in coagulation testing. Patientshaving hematocrit values >55% require a special collection tube for coagulation studies. Please contact the laboratory at [phone] for redraw instructions.Serum or plasma albumin/globulin mass ratioOrdered By: Howard Kolb on 01-32-9395Wdgktqk/Globulin [Mass ratio]2.2 {ratio}Protestant Deaconess Hospitalerum or plasma anion gap determinationOrdered By: Howard Kolb on 70-55-6209Czdnr gap [Moles/Vol]7.7 mmol/L6.0-15.0Protestant Deaconess Hospitalodium [Moles/volume] in Serum or PlasmaOrdered By: Howard Kolb on 19-39-4338Uhedsz [Moles/Vol]137 mmol/X753-425BebhuowqdFirelands Regional Medical Center South CampusUrea nitrogen [Mass/volume] in Serum or PlasmaOrdered By: Howard Kolb on 82-24-7949Beug nitrogen [Mass/Vol]28 mg/dL7-25[facility] South CampusFollow-Upon [id number]-[id number] Soumya Abdi 1960 F Date Provider Department Center 10/24/2023 HOWARD ROSA [facility] No family history on file Level of Service:21484 NM OFFICE/OUTPATIENT ESTABLISHED MOD MDM 30 MIN (GC) Reason for Visit and Comments: Hospital Follow-up [832]NormalAdams County HospitalCBC AND AUTO DIFFon 27-81-4849XOEZWZCY BASOPHIL0.0 X10E9/LNormal0.0-0.2ProMedica [facility]ondack HospitalComment on above:Performed By: #### 66551-8 #### [facility] ([id number]) [address], [address] [place], [place] [address]ZWGVOHFM NEUTROPHIL4.9 X10E9/LNormal1.5-6.6ProParkview Health Montpelier Hospitalca [facility] HospitalComment on above:Performed By: #### 73915-1 #### [facility] ([id number]) [address], [address] [place], [place] [address]Uoiiagbnp/100 WBC (Bld)0.4 %NormalOhioHealth Doctors Hospital Comment on above:Performed By: #### 27683-0 #### [facility] ([id number]) [address], [address] [place], [place] [address]Wqypdbsdgkt (Bld) [#/Vol]0.2 10*3/uLNormal0.0-0.4ProChildren'S Hospital For Rehabilitation HospitalComment on above:Performed By: #### 27356-3 #### [facility] ([id number]) [address], [address] [place], [place] [address]Alucqkzdiju/100 WBC (Bld)2.5 %NormalOhioHealth Doctors Hospital Comment on above:Performed By: #### 59578-0 #### [facility] ([id number]) [address], [address] [place], [place] [address]Tftiunhhbfl distribution width (RBC) [Ratio]14.2 %Normal 11.5-15.0ProParkview Health Montpelier Hospitalca [facility] HospitalComment on above:Performed By: #### 61304-5 #### [facility] ([id number]) [address], [address] [place], [place] [address]Uhyikmwqyo (Bld) [Volume fraction]39.6 %Chxalw13-39MrrLaoibs [facility] HospitalComment on above:Performed By: #### 92531-7 #### [facility] ([id number]) [address], [address] [place], [place] [address]Effrfvvqur (Bld) [Mass/Vol]13.6 g/mJLqicyv59.7-15.5ProMedica [place] HospitalComment on above:Performed By: #### 50571-5 #### [facility] ([id number]) [address], [address] [place], [place] [address]Bljmltbvvoz (Bld) [#/Vol]0.8 10*3/uLLow1.0-3.5ProMedica [facility] HospitalComment on above:Performed By: #### 68135-3 #### [facility] ([id number]) [address], [address] [place], [place] [address]Zdpwrohfyle/100 WBC (Bld)12.8 %NormalProMedica [facility]irondack Hospital Comment on above:Performed By: #### 35042-5 #### [facility] ([id number]) [address], [address] [place], [place] [address]EYD (RBC) [Entitic mass]29.7 xvGwjwqp88-82VsfXgrfvc [facility] HospitalComment on above:Performed By: #### 29494-5 #### [facility] ([id number]) [address], [address] [place], [place] [address]DAWU (RBC) [Mass/Vol]34.4 g/xKYsousq45-02XopXlbriq [facility] HospitalComment on above:Performed By: #### 08490-5 #### [facility] ([id number]) [address], [address] [place], [place] [address]XKQ (RBC) [Entitic vol]86 dTFhclvr06-429UtkUefxwc [facility] HospitalComment on above:Performed By: #### 42135-8 #### [facility] ([id number]) [address], [address] [place] [address]Asyeeqsvz (Bld) [#/Vol]0.6 10*3/uLNormal0-0.9ProParkview Health Montpelier Hospitalca Uk HealthcareComment on above:Performed By: #### 68708-6 #### [facility] ([id number]) [address], [address] [place] [address]Ibnuevioo/100 WBC (Bld)9.1 %NormalOhioHealth Doctors Hospital Comment on above:Performed By: #### 58234-1 #### [facility] ([id number]) [address], [address] [place], [place] [address]Fidsnshnjhx/100 WBC (Bld)75.2 %[facility] Comment on above:Performed By: #### 55494-5 #### [facility] ([id number]) [address], [address] [place], [place] [address]Ncgdabzz mean volume (Bld) [Entitic vol]9.3 fLNormal7-12 [facility] HospitalComment on above:Performed By: #### 80168-0 #### [facility] ([id number]) [address], [address] [place], [place] [address]Aytokwrqo (Bld) [#/Vol]92 10*3/cSKpu082-582LndOxoeuj [place] HospitalComment on above:Performed By: #### 83910-0 #### [facility] ([id number]) [address], [address] [place], [place] [address]KRD COUNT4.59 X10E12/LNormal3.80-5.20ProElyria [facility] Hospital Comment on above:Performed By: #### 78477-5 #### [facility] ([id number]) [address], [address] [place], [place] [address]WHH (Bld) [#/Vol]6.5 10*3/uLNormal4.0-11.0Pro[facility] [place] HospitalComment on above:Performed By: #### 03106-7 #### [facility] ([id number]) [address], [address] [place], [place] [address]IJBEJLPMHJJMY METABOLIC PANELon 15-28-9208Toyjytk [Mass/Vol]3.5 g/dLNormal3.2-5.3[facility] [place] HospitalComment on above:Performed By: #### 87529-4 #### [facility] ([id number]) [address], [address] [place], [place] [address]RKY [Catalytic activity/Vol]91 U/XRwflym11-423TytMhslel [place] HospitalComment on above:Performed By: #### 51891-1 #### [facility] ([id number]) [address], [address] [place], [place] [address]JVU [Catalytic activity/Vol]66 U/LHigh0-31ProMedusa health university hospital [place] HospitalComment on above:Performed By: #### 19098-4 #### [facility] ([id number]) [address], [address] [place], [place] [address]Cdxgy gap [Moles/Vol]5 mmol/LNormal5-15[facility] Comment on above:Performed By: #### 54567-3 #### [facility] ([id number]) [address], [address] [place], [place] [address]JZF [Catalytic activity/Vol]55 U/LHigh0-41[facility] [place] HospitalComment on above:Performed By: #### 27809-3 #### [facility] ([id number]) [address], [address] [place], [place] [address]Hszgdnueg [Mass/Vol]2.0 mg/dLHigh0.3-1.2Pro[facility]ica [place] HospitalComment on above:Performed By: #### 75704-4 #### [facility] ([id number]) [address], [address] [place], [place] [address]Ffhwryt [Mass/Vol]9.0 mg/dLNormal8.5-10.5PKettering Health Main CampusComment on above:Performed By: #### 33009-4 #### [facility] ([id number]) [address], [address] [place], [place] [address]Qlpdcjgj [Moles/Vol]105 mmol/FUmnofh87-373FwjRfnhez [place] HospitalComment on above:Performed By: #### 33196-8 #### [facility] ([id number]) [address], [address] [place], [place] [address]IH5 [Moles/Vol]27 mmol/ZGpvalz54-00HtzCoghrtKettering Health Main Campus Comment on above:Performed By: #### 80333-8 #### [facility] ([id number]) [address], [address] [place], [place] [address]Ehzfzsyimg [Mass/Vol]0.38 mg/dLLow0.40-1.00ProElyria Memorial HospitalComment on above:Result Comment: METHOD TRACEABLE TO IDMS STANDARD Performed By: #### 53635-0 #### [facility] ([id number]) [address], [address] [place], [place] [address]iEBX (CKD-EPI) NON-RACE DEPENDENT>90Normal>59ProElyria Memorial HospitalComment on above:Result Comment: Reported eGFR is based on the CKD-EPI 2021 equation that does not use a race coefficient.Performed By: #### 03861-2 #### [facility] ([id number]) [address], [address] [place], [place] [address]Ccgrjvf [Mass/Vol]136 mg/aGUnyc66-26OwaJzjbsl [facility] Comment on above:Performed By: #### 63308-8 #### [facility] ([id number]) [address], [address] [place], [place] [address]Xjuovrhmd [Moles/Vol]4.2 mmol/LNormal3.5-5.0Pro[facility] HospitalComment on above:Performed By: #### 26331-7 #### [facility] ([id number]) [address], [facility] [[email or web address]] [address] [place] [address]Rgqbuwc [Mass/Vol]5.4 g/dLLow6.0-8.0[facility] Comment on above:Performed By: #### 07371-7 #### [facility] ([id number]) [address], [facility] [[email or web address]] [address] [place], [place] [address]Jspxzw [Moles/Vol]137 mmol/YCiozlm744-380MsiOkyxjr [facility] HospitalComment on above:Performed By: #### 05762-4 #### [facility] ([id number]) [address], [facility] [[email or web address]] [address] [place], [place] [address]Urvm nitrogen [Mass/Vol]17 mg/dLNormal5-27Pro[facility] HospitalComment on above:Performed By: #### 92020-0 #### [facility] ([id number]) [address], [facility] [[email or web address]] [address] [place] [address]OCLKMWZKBpd 25-92-3971Dpbdbpjxd [Mass/Vol]1.9 mg/dLNormal1.8-2.6 [facility] HospitalComment on above:Performed By: #### 19106-8 #### [facility] ([id number]) [address], [address] [place], [place] [address]MEG AND AUTO DIFFon 37-90-2347YFGODKLH BASOPHIL0.0 X10E9/LNormal 0.0-0.2[facility] [place] HospitalComment on above:Performed By: #### CMP, 12892- 0, 44587-3, CBCA, 5196-1 ####[facility] ([id number])[address], [address], [place] [address]NEIGKPJU NEUTROPHIL6.2 X10E9/LNormal1.5-6.6 [facility] HospitalComment on above:Performed By: #### CMP, 04528-9, 74378-7, CBCA, 5196-1 ####[facility] ([id number])[address], [address], [place] [address]Psxawmmdg/100 WBC (Bld)0.2 %NormalProChildren'S Hospital For Rehabilitation HospitalComment on above:Performed By: #### CMP, 29097-9, 00272-0, CBCA, 5196-1 ####[facility] ([id number])[address], [address] [place] [address]Vdyktczfogy (Bld) [#/Vol]0.1 10*3/uLNormal0.0-0.4ProParkview Health Montpelier Hospitalca [facility] HospitalComment on above:Performed By: #### CMP, 58526-2, 33292-7, CBCA, 5196-1 ####[facility] ([id number])[address], [address], [place] [address]Twlnegzfdyo/100 WBC (Bld)1.0 %NormalProChildren'S Hospital For Rehabilitation Hospital Comment on above:Performed By: #### CMP, 59124-8, 44776-2, CBCA, 5196-1 ####[facility] ([id number])[address], [address] [place] [address]Mwesglfygbd distribution width (RBC) [Ratio]14.0 %Modztw17.5-15.0ProParkview Health Montpelier Hospitalca [facility] HospitalComment on above:Performed By: #### CMP, 10951-4, 95383-2, CBCA, 5196-1 ####[facility] ([id number])[address], [address], [place] [address]Hxhzmbmltl (Bld) [Volume fraction]38.6 %Slewxy66-72AdhSlnqrj [facility] HospitalComment on above:Performed By: #### CMP, 28102-1, 56509-7, CBCA, 5196-1 ####[facility] ([id number])[address], [address], [place] [address]Ggjpgamzqt (Bld) [Mass/Vol]13.4 g/pVKcsihk11.7-15.5PParkview Health Montpelier Hospital HospitalComment on above:Performed By: #### CMP, 66003-0, 95085-3, CBCA, 5196-1 ####[facility] ([id number])[address], [address], [place] [address]Kdfnvfpzzvg (Bld) [#/Vol]0.6 10*3/uLLow1.0-3.5PParkview Health Montpelier Hospital HospitalComment on above:Performed By: #### CMP, 12381-3, 61492-2, CBCA, 5196-1 ####[facility] ([id number])[address], [address], [place] [address]Vetpjgjwbbq/100 WBC (Bld)7.9 %NormalProChildren'S Hospital For Rehabilitation Hospital Comment on above:Performed By: #### CMP, 58026-8, 30287-8, CBCA, 5196-1 ####[facility] ([id number])[address], [address], [place] [address]DXR (RBC) [Entitic mass]30.0 pjOifjns42-37XdoWrvrqb [place] HospitalComment on above:Performed By: #### CMP, 50119-8, 84739-9, CBCA, 5196-1 ####[facility] ([id number])[address], [address], [place] [address]ZEFC (RBC) [Mass/Vol]34.8 g/yPOinzgt18-73FhiYpvaqb [place] HospitalComment on above: Performed By: #### CMP, 50957-2, 34975-4, CBCA, 5196-1 ####[facility] ([id number])[address], [address], [place] [address]PNA (RBC) [Entitic vol]86 rSHhxlql18-368AegUnbtcl [facility] HospitalComment on above: Performed By: #### CMP, 53220-8, 27634-8, CBCA, 5196-1 ####[facility] ([id number])[address], [address], [place] [address]Fvmcgzzcl (Bld) [#/Vol]0.6 10*3/uLNormal0-0.9[facility] [place] HospitalComment on above:Performed By: #### CMP, 41043-1, 58838-6, CBCA, 5196-1 ####[facility] ([id number])[address], [address], [place] [address]Wwbpxfapz/100 WBC (Bld)8.6 %NormalProMedica Caro HospitalComment on above:Performed By: #### CMP, 42784- 0, 27951-5, CBCA, 5196-1 ####[facility] ([id number])[address], [place] [address]Ooxgormesyj/100 WBC (Bld)82.3 %Normal [facility] HospitalComment on above:Performed By: #### CMP, 81256-6, 54647-9, CBCA, 5196-1 ####[facility] ([id number])[address], [address], [place] [address]Uomqffpz mean volume (Bld) [Entitic vol]9.4 fLNormal7-12[facility] Caro HospitalComment on above:Performed By: #### CMP, 41124-3, 20772-3, CBCA, 5196-1 ####[facility] ([id number])[address], [address], [place] [address]Ghepaixdz (Bld) [#/Vol]86 10*3/bSSur942-922 [facility]lake[facility] HospitalComment on above:Performed By: #### OPAL, 90602-1, 70528-0, CBCA, 5196-1 ####[facility] ([id number])[address], [address], [place] [address]ZPR COUNT4.47 X10E12/LNormal3.80-5.20 [facility]MT[facility]lake[facility] HospitalComment on above:Performed By: #### CMP, 77474-1, 75708-3, CBCA, 5196-1 ####[facility] ([id number])[address], [address], [place] [address]OLR (Bld) [#/Vol]7.6 10*3/uLNormal4.0-11.0 [facility]MA[facility] HospitalComment on above:Performed By: #### OPAL, 77912-8, 18652-0, CBCA, 5196-1 ####[facility] ([id number])[address], [place] [address]YKZISWESTLSFA METABOLIC PANELon 09-12-2023 Albumin [Mass/Vol]3.3 g/dLNormal3.2-5.3[facility] Caro HospitalComment on above:Performed By: #### OPAL, 28988-5, 40506-6, CBCA, 5196-1 ####[facility] ([id number])[address], [address], [place] [address]IAS [Catalytic activity/Vol]69 U/HEvjafv85-991RdzRcftpu Caro HospitalComment on above:Performed By: #### CMP, 61994-4, 33651-2, CBCA, 5196-1 ####[facility] ([id number])[address], [address], [place] [address]FBI [Catalytic activity/Vol]79 U/LHigh0-31Pro[facility] HospitalComment on above:Performed By: #### CMP, 72881-7, 47392-8, CBCA, 5196-1 ####[facility] ([id number])[address], [address], [place] [address]Rtagm gap [Moles/Vol]8 mmol/LNormal5-15ProMedica Caro HospitalComment on above:Performed By: #### OPAL, 01707-5, 28717-9, CBCA, 5196-1 ####[facility] ([id number])[address], [address], [place] [address]SUJ [Catalytic activity/Vol]75 U/LHigh0-41Pro[facility]ica [facility]o HospitalComment on above:Performed By: #### OPAL, 61895-7, 73014-7, CBCA, 5196-1 ####[facility] ([id number])[address], [address], [place] [address]Nlnwsphoe [Mass/Vol]3.4 mg/dLHigh0.3-1.2ProMedica Caro HospitalComment on above:Performed By: #### OPAL, 98962-6, 58975-0, CBCA, 5196-1 ####[facility] ([id number])[address], [address], [place] [address]Istnlsy [Mass/Vol]8.3 mg/dL Low8.5-10.5ProMedica Caro HospitalComment on above:Performed By: #### OPAL, 03426-7, 89407-0, CBCA, 5196-1 ####[facility] ([id number])[address], [address], [place] [address]Ueptceji [Moles/Vol]103 mmol/RYvbjgs31-960 [facility] HospitalComment on above:Performed By: #### OPAL, 22588-6, 50961-3, CBCA, 5196-1 ####[facility] ([id number])[address], [address], [place] [address]NO8 [Moles/Vol]26 mmol/PEfgebd02-98AexCrxunz [facility] HospitalComment on above:Performed By: #### OPAL, 46535-4, 45957-5, JACLYN, 5196-1 ####[facility] ([id number])[address] [address], [place] [address]Dicoitsunu [Mass/Vol]0.52 mg/dLNormal0.40-1.00ProChildren'S Hospital For Rehabilitation HospitalComment on above:Result Comment: METHOD TRACEABLE TO IDMS STANDARDPerformed By: #### OPAL, 21215-3, 54215-4, JACLYN, 5196-1 ####[facility] ([id number])[address] [address]dTKK (CKD-EPI) NON-RACE DEPENDENT>90Normal>59ProChildren'S Hospital For Rehabilitation HospitalComment on above:Result Comment: Reported eGFR is based on the CKD-EPI 2020 equation that does not use a race coefficient.Performed By: #### OPAL, 38182-2, 10844-3, JACLYN, 5196- 1 ####[facility] ([id number])[address] [address], [place] [address]Eakgdst [Mass/Vol]205 mg/zPAots16-79VsvDkotok [place] HospitalComment on above:Performed By: #### OPAL, 28293-2, 63630-2, JACLYN, 5196-1 ####[facility] ([id number])[address] [address], [place] [address]Szyduuxok [Moles/Vol]3.6 mmol/LNormal3.5-5.0ProChildren[facility] Hospital For Rehabilitation HospitalComment on above: Performed By: #### OPAL, 29979-2, 03583-1, JACLYN, 5196-1 ####[facility] ([id number])[address] [address], [place] [address]Yuifdul [Mass/Vol]5.1 g/dLLow6.0-8.0ProMedica Caro HospitalComment on above:Performed By: #### OPAL, 02870-0, 98414-1, CBCA, 5196-1 ####[facility] ([id number])[address], [address] [place] [address]Zfoggf [Moles/Vol]137 mmol/UPbrbvd455-443NftJdwaki Caro HospitalComment on above:Performed By: #### OPAL, 75021-1, 62675-8, CBCBreanna, 5196-1 ####[facility] ([id number])[address] [facility], [address] [place] [address]Egtl nitrogen [Mass/Vol]14 mg/dLNormal5-27ProMedica Caro HospitalComment on above:Performed By: #### OPAL, 26784-0, 31396-9, CBCBreanna, 5196-1 ####[facility] ([id number]) [address], [address] [place] [address]Moolwqm Glucometer (BldC) [Mass/Vol]on 89-54-9725Wdghvya [Mass/Vol]181 mg/vBLhhi47-79AypIwgcfe Caro HospitalGlucose [Mass/Vol]216 mg/nJAcxy04-43OcjIlukjr Caro HospitalGlucose [Mass/Vol]200 mg/dL Ipvg96-98JsyRhbofa Caro HospitalGlucose [Mass/Vol]160 mg/rACyvi42-49OifIayzgq Caro HospitalHBV surface Ag IA Qlon 20-01-1584EVFMXBHHO B SURF AGNegative NormalNEGProMedica Caro HospitalComment on above:Performed By: #### OPAL, 37603-3, 96600-8, CBCA, 5196-1 ####[facility] ([id number])[address], [address] [place] [address]BBR Ab IA Qlon 11-34-1306TPTZ HCV W/PCR REFLXNon-ReactiveNormalNRCTProMedica Caro HospitalComment on above:Result Comment: If recent infection suspected, recommend repeat testing (>2 months). Thtsbk-zi-gezenk ratio is <0.80.Performed By: #### 11632-6 #### [facility] ([id number]) [address], [address] [place], [place] [address]AWNNHNVPWfd 23-91-5277Dhmnzgkce [Mass/Vol]1.8 mg/dLNormal1.8-2.6 [facility] HospitalComment on above:Performed By: #### CMP, 65683-6, 65758-4, CBCA, 5196-1 ####[facility] ([id number])[address] [facility], [address], [place] [address]ZWI [Mass/Vol]on 43-05-0180LCCOW FETOPROTEIN 2.4 ng/mLNormal0-9.9ProChildren'[facility] Hospital [facility] Rehabilitation HospitalComment on above:Performed By: #### 57356-7, 90642-4, CMP, CBCA, 63581-6, 3040-3 #### [facility] ([id number]) [address] [facility], [address] [place], [place] [address]Xbkhj 1 antitrypsin Nephelometry [Mass/Vol]on 70-98-7415VQFOO 1 AGVAICISAVB371 mg/gHGvpkbv96-776LhkLutrol [place] HospitalComment on above: Performed By: #### 64729-2, 55281-7, CMP, CBCA, 08289-9, 3040-3 #### [facility] ([id number]) [address], [address] [place], [place] [address]ZQAPFMUWT,DIRECTon 44-69-6161Pywgbnmiu.direct [Mass/Vol]4.0 mg/dLHigh0.0-0.4ProElyria Memorial HospitalComment on above:Performed By: #### 49380-0, 74360-3, CMP, CBCA, 84405-0, 3040-3 #### [facility] ([id number]) [address], [address] [place], [place] [address]LWW AND AUTO DIFFon 39-69-2642IVBLZYHI BASOPHIL0.0 X10E9/LNormal 0.0-0.2Pro[facility] HospitalComment on above:Performed By: #### 08938-0, 65028-0, CMP, CBCA, 96375-1, 3040-3 #### [facility] ([id number]) [address], [address] [place], [place] [address]YKCNGTIF GNEVKMDYEW77.2 X10E9/LHigh1.5-6.6ProParkview Health Montpelier Hospitalca [facility] HospitalComment on above:Performed By: #### 61982-9, 75467-0, CMP, CBCA, 61873- 0, 3040-3 #### [facility] ([id number]) [address], [address] [place], [place] [address]Fownmjksr/100 WBC (Bld)0.1 %NormalOhioHealth Doctors Hospital Comment on above:Performed By: #### 21480-2, 15839-0, CMP, CBCA, 26734-2, 3040-3 #### [facility] ([id number]) [address], [address] [place], [place] [address]Ojivmxauhay (Bld) [#/Vol]0.0 10*3/uLNormal0.0-0.4ProElyria Memorial HospitalComment on above:Performed By: #### 14829-9, 52222-8, CMP, CBCA, 84868-6, 3040-3 #### [facility] ([id number]) [address], [address] [place], [place] [address]Kecmivlqixm/100 WBC (Bld)0.2 %NormalOhioHealth Doctors Hospital Comment on above:Performed By: #### 33204-4, 56397-7, CMP, CBCA, 73523-5, 3040-3 #### [facility] ([id number]) [address], [address] [place], [place] [address]Hbwpmofvuqp distribution width (RBC) [Ratio]13.8 %Normal 11.5-15.0ProElyria Memorial HospitalComment on above:Performed By: #### 40840-1, 35783-3, CMP, CBCA, 22586-8, 3040-3 #### [facility] ([id number]) [address], [address] [place], [place] [address]Upthbskdwm (Bld) [Volume fraction]40.8 %Gubpji04-59YdkIuhvat [place] HospitalComment on above:Performed By: #### 67387-8, 50581-4, CMP, CBCA, 38814-4, 3040-3 #### [facility] ([id number]) [address], [address] [place], [place] [address]Ylnazrullp (Bld) [Mass/Vol]14.2 g/kHPlpobb40.7-15.5ProMedMagruder Memorial Hospital HospitalComment on above:Performed By: #### 30320-5, 01517-0, CMP, CBCA, 53734-5, 3040-3 #### [facility] ([id number]) [address], [address] [place], [place] [address]Jirizuybfnv (Bld) [#/Vol]0.9 10*3/uLLow1.0-3.5PParkview Health Montpelier Hospital HospitalComment on above:Performed By: #### 97688-4, 55012-3, CMP, CBCA, 37277- 0, 3040-3 #### [facility] ([id number]) [address], [address] [place], [place] [address]Yecvmtxkqkl/100 WBC (Bld)7.0 %NormalProChildren'S Hospital For Rehabilitation Hospital Comment on above:Performed By: #### 12636-9, 73268-8, CMP, CBCA, 82221-9, 3040-3 #### [facility] ([id number]) [address], [address] [place], [place] [address]KUX (RBC) [Entitic mass]29.8 tkAdlbku81-90LdnJmfagx [place] HospitalComment on above:Performed By: #### 22621-4, 42232-5, CMP, CBCA, 77990- 0, 3040-3 #### [facility] ([id number]) [address], [address] [place], [place] [address]ABOL (RBC) [Mass/Vol]34.8 g/yTUsynxz42-80ZjmCxfsma [place] HospitalComment on above:Performed By: #### 43646-6, 13754-3, CMP, CBCA, 85493- 0, 3040-3 #### [facility] ([id number]) [address], [address] [place], [place] [address]HCK (RBC) [Entitic vol]86 wSExjzgg56-078UmuBbezdh [place] HospitalComment on above:Performed By: #### 74468-6, 13539-3, CMP, CBCA, 23972- 0, 3040-3 #### [facility] ([id number]) [address], [address] [place], [place] [address]Vkbrqvlqm (Bld) [#/Vol]0.9 10*3/uLNormal0-0.9ProElyria Memorial HospitalComment on above:Performed By: #### 11831-2, 79829-2, CMP, CBCA, 88469- 0, 3040-3 #### [facility] ([id number]) [address], [address] [place], [place] [address]Enbrtxxcd/100 WBC (Bld)6.7 %NormalProChildren'S Hospital For Rehabilitation Hospital Comment on above:Performed By: #### 85566-5, 18569-2, CMP, CBCA, 72239-4, 3040-3 #### [facility] ([id number]) [address], [address] [place], [place] [address]Nwatqxoyfbr/100 WBC (Bld)86.0 %NormalOhioHealth Doctors Hospital Comment on above:Performed By: #### 31643-6, 00025-0, CMP, CBCA, 56149-6, 3040-3 #### [facility] ([id number]) [address], [address] [place], [place] [address]Vnrlyvxj mean volume (Bld) [Entitic vol]9.5 fLNormal7-12 ProMedicSumma Health Akron CampusComment on above:Performed By: #### 39863-5, 72050-4, CMP, CBCA, 66625-6, 3040-3 #### [facility] ([id number]) [address], [address] [place], [place] [address]Wgrruxlnv (Bld) [#/Vol]113 10*3/aULbf369-788XuzIgwrnt [place] HospitalComment on above:Performed By: #### 24998-7, 95634-7, CMP, CBCA, 03339- 0, 3040-3 #### [facility] ([id number]) [address], [address] [place], [place] [address]DMD COUNT4.76 X10E12/LNormal3.80-5.20[facility] Comment on above:Performed By: #### 33272-6, 56470-7, CMP, CBCA, 70979-7, 3040-3 #### [facility] ([id number]) [address], [address] [place], [place] [address]XVX (Bld) [#/Vol]13.0 10*3/uLHigh4.0-11.0OhioHealth Doctors HospitalComment on above:Performed By: #### 33885-2, 05664-5, CMP, CBCA, 11464- 0, 3040-3 #### [facility] ([id number]) [address], [address] [place] [address]DDVYEDNCALJCU METABOLIC PANELon 51-89-1032Epbnwxd [Mass/Vol]3.4 g/dLNormal3.2-5.3ProMedMercy HealthComment on above:Performed By: #### 72546-1, 73446-1, CMP, CBCA, 19526-7, 3040-3 #### [facility] ([id number]) [address], [address] [place], [place] [address]UCP [Catalytic activity/Vol]57 U/DEwroht06-993YjsGvvlsf [place] HospitalComment on above:Performed By: #### 22749-7, 37887-3, CMP, CBCA, 81539- 0, 3040-3 #### [facility] ([id number]) [address], [address] [place], [place] [address]WBD [Catalytic activity/Vol]79 U/LHigh0-31ProMedMagruder [facility] Hospital HospitalComment on above:Performed By: #### 08221-3, 03699-6, CMP, CBCA, 10620- 0, 3040-3 #### [facility] ([id number]) [address], [address] [place], [place] [address]Rhhkp gap [Moles/Vol]8 mmol/LNormal5-15ProChildren'S [facility] Rehabilitation Hospital Comment on above:Performed By: #### 05682-7, 58480-1, CMP, CBCA, 10379-8, 3040-3 #### [facility] ([id number]) [address], [address] [place], [place] [address]LIH [Catalytic activity/Vol]95 U/LHigh0-41ProE[facility] Memorial HospitalComment on above:Performed By: #### 72538-1, 98100-2, CMP, CBCA, 56152- 0, 3040-3 #### [facility] ([id number]) [address], [address] [place], [place] [address]Mmyoyyzal [Mass/Vol]6.7 mg/dLHigh0.3-1.2PKettering Health Main CampusComment on above:Performed By: #### 05636-9, 69724-5, CMP, CBCA, 28687- 0, 3040-3 #### [facility] ([id number]) [address] [address] [place], [place] [address]Lqrwfxt [Mass/Vol]8.4 mg/dLLow8.5-10.5PKettering Health Main Campus Comment on above:Performed By: #### 81064-8, 13819-9, CMP, CBCA, 88649-4, 3040-3 #### [facility] ([id number]) [address] [address] [place], [place] [address]Vkmaklfk [Moles/Vol]101 mmol/DMaqesx61-354NvlWejsim [place] HospitalComment on above:Performed By: #### 35382-6, 48159-0, CMP, CBCA, 02309- 0, 3040-3 #### [facility] ([id number]) [address] [address] [place], [place] [address]ND5 [Moles/Vol]27 mmol/XIkagzs08-98FgyFahwaoKettering Health Main Campus Comment on above:Performed By: #### 35837-8, 22039-0, CMP, CBCA, 21296-0, 3040-3 #### [facility] ([id number]) [address], [address] [place], [place] [address]Pqqqlcmfue [Mass/Vol]0.59 mg/dLNormal0.40-1.00ProElyria Memorial HospitalComment on above:Result Comment: METHOD TRACEABLE TO IDMS STANDARD Performed By: #### 90097-4, 19231-3, CMP, CBCA, 56439-9, 3040-3 #### [facility] ([id number]) [address], [address] [place], [place] [address]jSJM (CKD-EPI) NON-RACE DEPENDENT>90Normal>59ProElyria Memorial HospitalComment on above:Result Comment: Reported eGFR is based on the CKD-EPI 2020 equation that does not use a race coefficient.Performed By: #### 88837-3, 34399-7, CMP, CBCA, 45031-3, 3040-3 #### [facility] ([id number]) [address], [address] [place], [place] [address]Jghkvaw [Mass/Vol]159 mg/wUTnzv75-56JsiMdwqneOhioHealth Doctors Hospital Comment on above:Performed By: #### 88959-4, 29975-4, CMP, CBCA, 76979-2, 3040-3 #### [facility] ([id number]) [address], [address] [place], [place] [address]Jmsyltcxi [Moles/Vol]3.6 mmol/LNormal3.5-5.0ProElyria Memorial HospitalComment on above:Performed By: #### 27652-3, 36593-5, CMP, CBCA, 67770- 0, 3040-3 #### [facility] ([id number]) [address], [address] [place], [place] [address]Jfdoqqn [Mass/Vol]5.1 g/dLLow6.0-8.0[facility] Comment on above:Performed By: #### 03887-1, 67895-7, CMP, CBCA, 88304-7, 3040-3 #### [facility] ([id number]) [address], [address] [place], [place] [address]Llbgvy [Moles/Vol]136 mmol/PPpbtkq812-229BezOcguoy [place] HospitalComment on above:Performed By: #### 41650-2, 27358-8, CMP, CBCA, 05180- 0, 3040-3 #### [facility] ([id number]) [address], [address] [place], [place] [address]Sxnd nitrogen [Mass/Vol]17 mg/dLNormal5-27ProChildren'S Hospital For Rehabilitation HospitalComment on above:Performed By: #### 30206-2, 19826-4, CMP, CBCA, 09340- 0, 3040-3 #### [facility] ([id number]) [address], [address] [place], [place] [address]MFJSOWPUwy 45-76-4113Jmowowlz [Mass/Vol]345 ng/fZXspy31-692 [facility] HospitalComment on above:Performed By: #### 98760-6, 75435-5, CMP, CBCA, 87780-2, 3040-3 #### [facility] ([id number]) [address], [address] [place], [place] [address]Olxktep Glucometer (BldC) [Mass/Vol]on 83-53-0907Phnvrpe [Mass/Vol]155 mg/jNLsam22-92OtlUboqenElyria Memorial HospitalIMMUNOGLOBULINSon 60-68-4254UyF [Mass/Vol]85 mg/dPLrfkei85-310DcyCsqqxv [place] HospitalComment on above:Performed By: #### 67604-9, 90140-1, CMP, CBCA, 36698-4, 3040-3 #### [facility] ([id number]) [address], [address] [place], [place] [address]PvX [Mass/Vol]480 mg/gHDij400-3700KcgBhqzmn [place] [facility] Comment on above:Performed By: #### 41800-7, 50327-5, CMP, CBCA, 21754-0, 3040-3 #### [facility] ([id number]) [address], [address] [place], [place] [address]EoQ [Mass/Vol]24 mg/xBKmv00-624GftHndmwhElyria Memorial HospitalComment on above:Performed By: #### 49200-5, 82418-5, CMP, CBCA, 49309-1, 3040-3 #### [facility] ([id number]) [address], [address] [place] [address]AFMY PROFILEon 29-00-7807Jrsx [Mass/Vol]21 ug/wMVqe62-302 [facility] HospitalComment on above:Performed By: #### 16403-7, 94180-7, CMP, CBCA, 99784-6, 3040-3 #### [facility] ([id number]) [address], [address] [place], [place] [address]CJJQ CJPQJOK932 ug/lFKsoyom405-981QrzZnevxmOhioHealth Doctors Hospital Comment on above:Performed By: #### 50116-0, 21346-5, CMP, CBCA, 77614-5, 3040-3 #### [facility] ([id number]) [address], [address] [place], [place] [address]UCJM SATURATION8 % HFQIXIHEJVYby71-90AieYpwwoj [place] [facility] Comment on above:Performed By: #### 44888-6, 50955-7, CMP, CBCA, 49631-7, 3040-3 #### [facility] ([id number]) [address], [address] [place], [place] [address]MZUFWQme 02-16-0037Ciptuc [Catalytic activity/Vol]31 U/LNormal 11-82OhioHealth Doctors HospitalComment on above:Performed By: #### 55416-2, 35305-1, CMP, CBCA, 42606-5, 3040-3 #### [facility] ([id number]) [address], [address] [place] [address]PDLNWBAWVdv 93-77-4917Qqtrgizlw [Mass/Vol]2.0 mg/dLNormal1.8-2.6 [facility] HospitalComment on above:Performed By: #### 62273-2, 2823-3 ####[facility] ([id number])[address], [address], [place] [address]Mifccjqhn [Mass/Vol]1.9 mg/dLNormal1.8-2.6ProChildren'S Hospital For Rehabilitation HospitalComment on above:Performed By: #### 10378-4, 45338-2, CMP, CBCA, 21036-6, 3040-3 #### [facility] ([id number]) [address], [address] [place], [place] [address]Zburssgfgzcu M2 Ab IA Qn (S)on 89-95-7505Bzlobwmebmkhl Ab (M2) <0.1Normal<0.1 (Negative)Pro[facility]ica Uk HealthcareComment on above:Result Comment: NOTE Test Performed by: [facility] [address] [place] [address] Correctional Cook: Chevy Gonsalves M.D. Ph.D.; CLIA# [id number] By: #### 6771-0, IMGB, 65195-4, 2276-4, FEPR, 1834-1, PINR ####[facility] ([id number])[address], [address] [address]Bjwrwwu Ab IA Ql (S)on 87-30-1221GTF Screen w/reflexNegativeNormalNEGProElyria Memorial HospitalComment on above:Result Comment: Testing performed using multiplex flow immunoassay. Eleven different antigens associated with systemic autoimmune diseases (dsDNA,Sm,Sm/QUALITY CONTROL HEAD,QUALITY CONTROL HEAD,Chromatin, SSA,SSB,Julieth-1,Scl70,Ribo P,Centromere B) are included in this screening test.Performed By: #### 03664-9, 40048-1, CMP, CBCA, 15079-6, 3040-3 #### [facility] ([id number]) [address], [address] [place] [address]SFDEVDCJOdv 75-10-0006Xzggjqzmh [Moles/Vol]4.1 mmol/LNormal 3.5-5.0ProElyria Memorial HospitalComment on above:Performed By: #### 60202-1, 2823-3 ####[facility] ([id number])[address], [place] [address]JLQAGQP AND INRon 89-49-7989EOU Coag (PPP) [Relative time]1.8 {INR}High0.8-1.1PKettering Health Main CampusComment on above:Performed By: #### 74381-8, 25335-0, CMP, CBCA, 19440-4, 3040-3 #### [facility] ([id number]) [address], [address] [place], [place] [address]PM Coag (PPP) [Time]20.7 sHigh9.8-13.2PKettering Health Main Campus Comment on above:Performed By: #### 79156-9, 14469-8, CMP, CBCA, 33061-5, 3040-3 #### [facility] ([id number]) [address], [address] [place], [place] [address]Qqmcbb muscle Ab IF Ql (S)on 51-04-6167Oeagfl Muscle AbNegative NormalNegativeProMedica Uk HealthcareComment on above:Result Comment: NOTE Negative: No further testing will be performed ADDITIONAL INFORMATION This test was developed and its performance characteristics determined by [facility] in a manner consistent with CLIA requirements. This test has not been cleared or approved by the [place]. Food and Drug Administration. Test Performed by: [facility] [address] [place] [address] Correctional Cook: Chevy Gonsalves M.D. Ph.D.; CLIA# [id number] By: #### 6771-0, IMGB, 58445-1, 2276-4, FEPR, 1834-1, PINR ####[facility] ([id number])[address], [place] [address]vAK IgA IA Qn (S)on 49-82-1640AXU AB IGA<1.2Normal<4.0 (Negative)[facility] HospitalComment on above:Result Comment: NOTE Test Performed by: [facility] [address] [place] [address] Correctional Cook: Chevy Gonsalves M.D. Ph.D.; CLIA# [id number] By: #### 6771-0, IMGB, 36840-0, 2276-4, FEPR, 1834-1, PINR ####[facility] ([id number])[address], [address], [place] [address]FOZ AND AUTO DIFFon 89-87-3177Fefk form neutrophils/100 WBC (Bld)5.0 %NormalProChildren'S Hospital For Rehabilitation HospitalComment on above:Performed By: #### 61828-9, 60924-0, CMP, CBCA, 05847- 0, 3040-3 #### [facility] ([id number]) [address], [address] [place], [place] [address]Arincrrncuk distribution width (RBC) [Ratio]13.2 %Normal 11.5-15.0ProParkview Health Montpelier Hospitalca Adirondack HospitalComment on above:Performed By: #### 87405-0, 38976-6, CMP, CBCA, 87109-1, 3040-3 #### [facility] ([id number]) [address], [address] [place], [place] [address]Rxoomsedso (Bld) [Volume fraction]45.1 %Bseitk77-78DkrNhpkbe [place] HospitalComment on above:Performed By: #### 74700-5, 72926-0, CMP, CBCA, 43758-4, 3040-3 #### [facility] ([id number]) [address], [address] [place], [place] [address]Vzopdkcnlg (Bld) [Mass/Vol]15.7 g/vOXmyo89.7-15.5Pro[facility] HospitalComment on above:Performed By: #### 72625-2, 44864-0, CMP, CBCA, 94148-5, 3040-3 #### [facility] ([id number]) [address], [address] [place], [place] [address]Mdvedmcvaky (Bld) [#/Vol]0.7 10*3/uLLow1.0-3.5Pro[facility]ica [facility] HospitalComment on above:Performed By: #### 23483-1, 93334-1, CMP, CBCA, 33390- 0, 3040-3 #### [facility] ([id number]) [address], [address] [place], [place] [address]Qyguzocodnt/100 WBC (Bld)3.0 %NormalProChildren'S Hospital For Rehabilitation Hospital Comment on above:Performed By: #### 08598-3, 26572-7, CMP, CBCA, 43412-9, 3040-3 #### [facility] ([id number]) [address], [address] [place], [place] [address]GNK (RBC) [Entitic mass]29.5 plRiyovf97-71KdhKrtbfk [place] HospitalComment on above:Performed By: #### 13844-8, 79838-0, CMP, CBCA, 79065- 0, 3040-3 #### [facility] ([id number]) [address], [address] [place], [place] [address]WOBR (RBC) [Mass/Vol]34.8 g/hHYdaoyz92-82UorWhoqlf [place] HospitalComment on above:Performed By: #### 00285-4, 35071-1, CMP, CBCA, 09877- 0, 3040-3 #### [facility] ([id number]) [address], [address] [place], [place] [address]NJP (RBC) [Entitic vol]85 dCDcudzm38-449KfwEevcvy [facility] HospitalComment on above:Performed By: #### 81740-4, 57318-5, CMP, CBCA, 05099- 0, 3040-3 #### [facility] ([id number]) [address], [address] [place], [place] [address]Uehjsfftg (Bld) [#/Vol]1.9 10*3/uLHigh0-0.9Pro[facility] HospitalComment on above:Performed By: #### 09525-2, 60023-6, CMP, CBCA, 10903- 0, 3040-3 #### [facility] ([id number]) [address], [address] [place], [place] [address]Gmfvjkxcr/100 WBC (Bld)8.0 %NormalProChildren'S Hospital For Rehabilitation Hospital Comment on above:Performed By: #### 31506-6, 03319-2, CMP, CBCA, 81624-0, 3040-3 #### [facility] ([id number]) [address], [address] [place], [place] [address]Ktziuuegwko (Bld) [#/Vol]20.6 10*3/uLHigh1.5-6.6ProParkview Health Montpelier Hospitalca [facility] HospitalComment on above:Performed By: #### 74286-5, 28232-9, CMP, CBCA, 97945- 0, 3040-3 #### [facility] ([id number]) [address], [address] [place], [place] [address]Nbhpwesa mean volume (Bld) [Entitic vol]9.1 fLNormal7-12 [facility] HospitalComment on above:Performed By: #### 34890-3, 83455-9, CMP, CBCA, 11353-8, 3040-3 #### [facility] ([id number]) [address], [address] [place], [place] [address]Icihxaivu (Bld) [#/Vol]136 10*3/oVVbr292-477AgtWbqaov [facility] HospitalComment on above:Performed By: #### 78967-2, 10943-5, CMP, CBCA, 16919- 0, 3040-3 #### [facility] ([id number]) [address], [address] [place], [place] [address]HGY COUNT5.34 X10E12/LHigh3.80-5.20Pro[facility] Comment on above:Performed By: #### 65286-1, 34129-8, CMP, CBCA, 10816-5, 3040-3 #### [facility] ([id number]) [address], [address] [place], [place] [address]EOW morphology finding Nom (Bld)NORMALNormalProParkview Health Montpelier Hospitalca [facility] HospitalComment on above:Performed By: #### 92290-5, 13253-3, CMP, CBCA, 61407- 0, 3040-3 #### [facility] ([id number]) [address], [address] [place], [place] [address]NSC FJRWANPFRX91.0 %NormalProChildren'S Hospital For Rehabilitation HospitalComment on above:Performed By: #### 97154-1, 15327-1, CMP, CBCA, 77461-7, 3040-3 #### [facility] ([id number]) [address], [address] [place], [place] [address]PTO (Bld) [#/Vol]23.2 10*3/uLHigh4.0-11.0ProParkview Health Montpelier Hospitalca [facility] HospitalComment on above:Performed By: #### 66934-0, 34540-6, CMP, CBCA, 08753- 0, 3040-3 #### [facility] ([id number]) [address], [address] [place], [place] [address]WUQCAWSUSRJFW METABOLIC PANELon 11-44-1397Zgeyfrm [Mass/Vol]4.0 g/dLNormal3.2-5.3[facility] HospitalComment on above:Performed By: #### 07354-6, 93707-1, CMP, CBCA, 38886-9, 3040-3 #### [facility] ([id number]) [address], [address] [place] [address]KHI [Catalytic activity/Vol]70 U/KKmeynm17-526TtvFfyddu [place] HospitalComment on above:Performed By: #### 69786-2, 67549-4, CMP, CBCA, 68198- 0, 3040-3 #### [facility] ([id number]) [address], [address] [place] [address]VSE [Catalytic activity/Vol]41 U/LHigh0-31[facility] HospitalComment on above:Performed By: #### 60839-3, 19314-7, CMP, CBCA, 52827- 0, 3040-3 #### [facility] ([id number]) [address], [address] [place] [address]Lbheq gap [Moles/Vol]12 mmol/LNormal5-15[facility] HospitalComment on above:Performed By: #### 41915-1, 19364-0, CMP, CBCA, 28965- 0, 3040-3 #### [facility] ([id number]) [address], [address] [place] [address]WFF [Catalytic activity/Vol]70 U/LHigh0-41[facility] HospitalComment on above:Performed By: #### 60100-3, 32119-4, CMP, CBCA, 41061- 0, 3040-3 #### [facility] ([id number]) [address], [address] [place] [address]Qmntxqgkx [Mass/Vol]4.9 mg/dLHigh0.3-1.2[facility] HospitalComment on above:Performed By: #### 07338-3, 10488-1, CMP, CBCA, 77905- 0, 3040-3 #### [facility] ([id number]) [address] [address] [place], [place] [address]Swfiyjv [Mass/Vol]8.3 mg/dLLow8.5-10.5PKettering Health [facility] Campus Comment on above:Performed By: #### 37362-0, 16325-7, CMP, CBCA, 31996-0, 3040-3 #### [facility] ([id number]) [address] [address] [place], [place] [address]Eqlaxare [Moles/Vol]100 mmol/GAscmse57-262VyoVlxppo [place] HospitalComment on above:Performed By: #### 19340-2, 98647-9, CMP, CBCA, 29611- 0, 3040-3 #### [facility] ([id number]) [address] [address] [place], [place] [address]SP2 [Moles/Vol]22 mmol/EDjjkoi31-94TrqReqjpoKettering Health Main Campus Comment on above:Performed By: #### 22422-0, 73369-0, CMP, CBCA, 99705-6, 3040-3 #### [facility] ([id number]) [address] [address] [place], [place] [address]Ejbgvfytwy [Mass/Vol]0.50 mg/dLNormal0.40-1.00ProElyria Memorial HospitalComment on above:Result Comment: METHOD TRACEABLE TO IDMS STANDARD Performed By: #### 60908-3, 75591-8, CMP, CBCA, 13439-0, 3040-3 #### [facility] ([id number]) [address] [address] [place], [place] [address]xOAX (CKD-EPI) NON-RACE DEPENDENT>90Normal>59ProElyria Memorial HospitalComment on above:Result Comment: Reported eGFR is based on the CKD-EPI 2020 equation that does not use a race coefficient.Performed By: #### 09439-9, 32474-5, CMP, CBCA, 58915-3, 3040-3 #### [facility] ([id number]) [address], [address] [place], [place] [address]Ogreltj [Mass/Vol]195 mg/uSHiag41-99CmbRtdtsnElyria Memorial Hospital Comment on above:Performed By: #### 60252-8, 65336-5, CMP, CBCA, 25234-4, 3040-3 #### [facility] ([id number]) [address], [address] [place], [place] [address]Qxlhwxipu [Moles/Vol]4.0 mmol/LNormal3.5-5.0ProElyria Memorial HospitalComment on above:Performed By: #### 76445-4, 95901-3, CMP, CBCA, 11376- 0, 3040-3 #### [facility] ([id number]) [address], [address] [place], [place] [address]Xhoaizr [Mass/Vol]5.9 g/dLLow6.0-8.0[facility] Comment on above:Performed By: #### 24436-6, 23670-0, CMP, CBCA, 74428-4, 3040-3 #### [facility] ([id number]) [address], [address] [place], [place] [address]Kzwtft [Moles/Vol]134 mmol/SGaldxl034-125YcfFrmzfj [place] HospitalComment on above:Performed By: #### 42304-9, 31841-4, CMP, CBCA, 59766- 0, 3040-3 #### [facility] ([id number]) [address], [address] [place], [place] [address]Xsyc nitrogen [Mass/Vol]13 mg/dLNormal5-27ProElyria Memorial HospitalComment on above:Performed By: #### 50012-3, 45297-6, CMP, CBCA, 79788- 0, 3040-3 #### [facility] ([id number]) [address], [address] [place], [place] [address]Kdddrfe [Mass/Vol]on 84-13-3150VFMAIWT78.8 pg/mLNormal<115.0 ProMAvita [facility] HospitalComment on above:Result Comment: NOTE The Gastrin test was performed using the Siemens Immulite chemiluminescent immunometric method. Results obtained with different assay methods or kits cannot be used interchangeably. Test Performed By: [place] [address] Gardening Instructor: Gualberto Prakash III, M.D. [facility] #[id number] Glucometer (BldC) [Mass/Vol]on 11-26-4920Fefgqor [Mass/Vol]177 mg/sWCjax66-51LocHnmxxa [place] HospitalGlucose [Mass/Vol]204 mg/dL Oknf68-61JitHlwhft [place] HospitalGlucose [Mass/Vol]185 mg/xVZobi72-16OszVboqiw [facility] HospitalGlucose [Mass/Vol]184 mg/uKFwgq66-15HkhMycqek [facility] MAGNESIUMon 91-01-7172Kzixgqusi [Mass/Vol]2.1 mg/dLNormal1.8-2.6ProParkview Health Montpelier Hospitalca [facility] HospitalComment on above:Performed By: #### 32524-5, 44913-5, CMP, CBCA, 34908- 0, 3040-3 #### [facility] ([id number]) [address], [address] [place], [place] [address]Npkvyzusa [Mass/Vol]2.0 mg/dLNormal1.8-2.6ProChildren[facility] Rehabilitation HospitalComment on above:Performed By: #### 75897-2, 66299-8, CMP, CBCA, 21366- 0, 3040-3 #### [facility] ([id number]) [address], [address] [place], [place] [address]QHRWQTTGJvr 19-65-0033Xbssbskmu [Moles/Vol]3.7 mmol/LNormal 3.5-5.0Pro[facility] Rehabilitation HospitalComment on above:Performed By: #### 21704-0, 57127-8, CMP, CBCA, 83457-8, 3040-3 #### [facility] ([id number]) [address], [address] [place], [place] [address]KZU AND AUTO DIFFon 75-10-1585ETOSDEAP BASOPHIL0.2 X10E9/LNormal 0.0-0.2[facility] HospitalComment on above:Performed By: #### 19202-4, 03690-5, CMP, CBCA, 74246-2, 3040-3 #### [facility] ([id number]) [address], [address] [place], [place] [address]SCBAYFVB QSHTEOCEKN17.2 X10E9/LHigh1.5-6.6ProElyria Memorial HospitalComment on above:Performed By: #### 38653-3, 68789-1, CMP, CBCA, 28866- 0, 3040-3 #### [facility] ([id number]) [address], [address] [place], [place] [address]Nxuqzzdur/100 WBC (Bld)1.1 %[facility] Comment on above:Performed By: #### 05788-2, 58564-0, CMP, CBCA, 57248-3, 3040-3 #### [facility] ([id number]) [address], [address] [place], [place] [address]Oruwqvrjazm (Bld) [#/Vol]0.0 10*3/uLNormal0.0-0.4ProElyria Memorial HospitalComment on above:Performed By: #### 08307-8, 75051-6, CMP, CBCA, 28081-2, 3040-3 #### [facility] ([id number]) [address], [address] [place], [place] [address]Vpehgtraggp/100 WBC (Bld)0.1 %NormalProMedica [facility] Comment on above:Performed By: #### 87476-8, 03445-2, CMP, CBCA, 61175-4, 3040-3 #### [facility] ([id number]) [address], [address] [place], [place] [address]Shnybzbuufi distribution width (RBC) [Ratio]13.0 %Normal 11.5-15.0ProChildren[facility]S Hospital For Rehabilitation HospitalComment on above:Performed By: #### 74262-8, 73635-7, CMP, CBCA, 29320-3, 3040-3 #### [facility] ([id number]) [address] [address] [place], [place] [address]Gcyioxsihe (Bld) [Volume fraction]45.6 %Pcufvk78-11IfkIahotcElyria Memorial HospitalComment on above:Performed By: #### 56055-7, 26355-8, CMP, CBCA, 78447-5, 3040-3 #### [facility] ([id number]) [address] [address] [place], [place] [address]Pzkvloqksw (Bld) [Mass/Vol]15.9 g/rLGgwq85.7-15.5PKettering Health Main CampusComment on above:Performed By: #### 66146-8, 81551-4, CMP, CBCA, 61638-1, 3040-3 #### [facility] ([id number]) [address] [address] [place], [place] [address]Jyumlaswgjm (Bld) [#/Vol]2.2 10*3/uLNormal1.0-3.5PKettering Health Main CampusComment on above:Performed By: #### 13685-0, 41569-6, CMP, CBCA, 08813-8, 3040-3 #### [facility] ([id number]) [address], [address] [place], [place] [address]Iqknadmfxeo/100 WBC (Bld)14.2 %NormalProElyria Memorial Hospital Comment on above:Performed By: #### 73688-8, 50118-2, CMP, CBCA, 36041-5, 3040-3 #### [facility] ([id number]) [address], [address] [place], [place] [address]BJR (RBC) [Entitic mass]29.4 meIxuhar21-57BdgVhyqdz [place] HospitalComment on above:Performed By: #### 86802-3, 45589-9, CMP, CBCA, 80215- 0, 3040-3 #### [facility] ([id number]) [address], [address] [place], [place] [address]BQID (RBC) [Mass/Vol]34.9 g/fIEomhkk49-01NmxTavlln [place] HospitalComment on above:Performed By: #### 98308-6, 62816-7, CMP, CBCA, 50695- 0, 3040-3 #### [facility] ([id number]) [address], [address] [place], [place] [address]GJH (RBC) [Entitic vol]84 gFPmtosk83-526IhzCngynm [place] HospitalComment on above:Performed By: #### 61516-9, 09122-6, CMP, CBCA, 76890- 0, 3040-3 #### [facility] ([id number]) [address], [address] [place], [place] [address]Sextjpveh (Bld) [#/Vol]0.9 10*3/uLNormal0-0.9ProElyria Memorial HospitalComment on above:Performed By: #### 13709-7, 99451-5, CMP, CBCA, 48013- 0, 3040-3 #### [facility] ([id number]) [address], [address] [place], [place] [address]Tbvmwaluo/100 WBC (Bld)6.0 %NormalProElyria Memorial Hospital Comment on above:Performed By: #### 45740-2, 98683-8, CMP, CBCA, 24839-4, 3040-3 #### [facility] ([id number]) [address], [address] [place], [place] [address]Mkvwjdezcow/100 WBC (Bld)78.6 %NormalOhioHealth Doctors Hospital Comment on above:Performed By: #### 71920-0, 73807-7, CMP, CBCA, 60352-5, 3040-3 #### [facility] ([id number]) [address], [address] [place], [place] [address]Uqmwofqp mean volume (Bld) [Entitic vol]8.9 fLNormal7-12 ProMSamaritan North Health CenterComment on above:Performed By: #### 58310-0, 10726-0, CMP, CBCA, 71020-0, 3040-3 #### [facility] ([id number]) [address], [address] [place], [place] [address]Qracjeshz (Bld) [#/Vol]147 10*3/hUTva774-545XdjSumywyElyria Memorial HospitalComment on above:Performed By: #### 61958-7, 63044-4, CMP, CBCA, 04501- 0, 3040-3 #### [facility] ([id number]) [address], [address] [place], [place] [address]OVO COUNT5.43 X10E12/LHigh3.80-5.20[facility] Comment on above:Performed By: #### 76757-7, 82090-8, CMP, CBCA, 54613-5, 3040-3 #### [facility] ([id number]) [address], [address] [place], [place] [address]RYE (Bld) [#/Vol]15.5 10*3/uLHigh4.0-11.0ProElyria Memorial HospitalComment on above:Performed By: #### 19975-2, 77494-5, CMP, CBCA, 13733- 0, 3040-3 #### [facility] ([id number]) [address], [address] [place] [address]SACPBXCOVXGVS METABOLIC PANELon 16-04-0837Kzkdpil [Mass/Vol]4.1 g/dLNormal3.2-5.3[facility] [place] HospitalComment on above:Performed By: #### 16033-4, 00348-8, CMP, CBCA, 70868-9, 3040-3 #### [facility] ([id number]) [address], [address] [place] [address]XKK [Catalytic activity/Vol]68 U/LXnqnpl85-347OpcGppaid [place] HospitalComment on above:Performed By: #### 17889-8, 31657-6, CMP, CBCA, 09716- 0, 3040-3 #### [facility] ([id number]) [address], [address] [place], [place] [address]DZD [Catalytic activity/Vol]9 U/LNormal0-31[facility] [place] HospitalComment on above:Performed By: #### 73991-5, 93214-6, CMP, CBCA, 44565- 0, 3040-3 #### [facility] ([id number]) [address], [address] [place], [place] [address]Cbiby gap [Moles/Vol]15 mmol/LNormal5-15[facility] [place] HospitalComment on above:Performed By: #### 97969-5, 17261-7, CMP, CBCA, 87442- 0, 3040-3 #### [facility] ([id number]) [address], [address] [place] [address]JIM [Catalytic activity/Vol]18 U/LNormal0-41[facility] [place] HospitalComment on above:Performed By: #### 42659-6, 60939-1, CMP, CBCA, 31121- 0, 3040-3 #### [facility] ([id number]) [address], [address] [place], [place] [address]Emnoqaqdv [Mass/Vol]1.6 mg/dLHigh0.3-1.2PParkview Health [facility] Hospital HospitalComment on above:Performed By: #### 53914-6, 81407-6, CMP, CBCA, 14480- 0, 3040-3 #### [facility] ([id number]) [address], [address] [place], [place] [address]Tgdgdvh [Mass/Vol]8.7 mg/dLNormal8.5-10.5PParkview Health [facility] Hospital HospitalComment on above:Performed By: #### 33656-7, 39130-7, CMP, CBCA, 54478- 0, 3040-3 #### [facility] ([id number]) [address], [address] [place], [place] [address]Ugmkypdm [Moles/Vol]101 mmol/ERokdpf84-252KczKfmhfx [place] HospitalComment on above:Performed By: #### 87877-2, 58454-6, CMP, CBCA, 39786- 0, 3040-3 #### [facility] ([id number]) [address], [address] [place], [place] [address]OY5 [Moles/Vol]21 mmol/XJup17-01YsjZvscbp [place] HospitalComment on above:Performed By: #### 58318-0, 46553-4, CMP, CBCA, 90721-9, 3040-3 #### [facility] ([id number]) [address], [address] [place], [place] [address]Ojurawsxvp [Mass/Vol]0.53 mg/dLNormal0.40-1.00Pro[facility]ica [place] HospitalComment on above:Result Comment: METHOD TRACEABLE TO IDMS STANDARD Performed By: #### 29609-1, 35882-8, CMP, CBCA, 10503-5, 3040-3 #### [facility] ([id number]) [address], [address] [place], [place] [address]uSMR (CKD-EPI) NON-RACE DEPENDENT>90Normal>59ProElyria Memorial HospitalComment on above:Result Comment: Reported eGFR is based on the CKD-EPI 2020 equation that does not use a race coefficient.Performed By: #### 95638-7, 13061-4, CMP, CBCA, 84535-6, 3040-3 #### [facility] ([id number]) [address], [address] [place], [place] [address]Pfvfdjx [Mass/Vol]167 mg/fGQlsy40-98GkuQlsmuqOhioHealth Doctors Hospital Comment on above:Performed By: #### 84053-5, 79554-8, CMP, CBCA, 55509-4, 3040-3 #### [facility] ([id number]) [address], [address] [place], [place] [address]Lpvnqnvwq [Moles/Vol]3.0 mmol/LLow3.5-5.0ProElyria Memorial HospitalComment on above:Performed By: #### 29283-5, 80279-6, CMP, CBCA, 65770- 0, 3040-3 #### [facility] ([id number]) [address], [address] [place], [place] [address]Pjbabva [Mass/Vol]6.2 g/dLNormal6.0-8.0[facility] Comment on above:Performed By: #### 66008-1, 22134-4, CMP, CBCA, 00458-7, 3040-3 #### [facility] ([id number]) [address], [address] [place], [place] [address]Pwqpzj [Moles/Vol]137 mmol/PNqfzbf508-760FcxGhsckm [place] HospitalComment on above:Performed By: #### 56898-0, 48291-7, CMP, CBCA, 10952- 0, 3040-3 #### [facility] ([id number]) [address] [place], [place] [address]Sdkg nitrogen [Mass/Vol]14 mg/dLNormal5-27Pro[facility] Uk HealthcareComment on above:Performed By: #### 91455-3, 06178-7, CMP, CBCA, 66255- 0, 3040-3 #### [facility] ([id number]) [address] [place], [place] [address]TQ ABDOMEN AND PELVIS W CONTon 65-77-5065PH ABDOMEN AND PELVIS W CONTCT ABDOMEN AND PELVIS W CONT CLINICAL INFORMATION: [...] by Jason Gonsalves MD on 09/09/2023 5:12 PMNormalOhioHealth Doctors HospitalFL ERCP BILIARY DUCTon 25-60-6632QB ERCP BILIARY DUCTFL ERCP BILIARY DUCT CLINICAL INFORMATION: FLUORO IN ENDO#6 IMPRESSION: * Intraoperative fluoroscopy provided. The reference air kerma was 22.87 mGy. Finalized by Jason Gonsalves MD on 09/09/2023 12:24 PMNormalOhioHealth Doctors HospitalGlucose Glucometer (BldC) [Mass/Vol]on 93-28-3057Asorpqs [Mass/Vol]172 mg/xYWquo30-07IycYiujjkOhioHealth Doctors HospitalGlucose [Mass/Vol]158 mg/yAOutl29-75 [facility] HealthcareGlucose [Mass/Vol]121 mg/aGFlsw62-92WwwHyzdthOhioHealth Doctors HospitalHBV surface Ab IA Qnon 05-32-4050Uxbx HBs quant.<8.00NormalOhioHealth Doctors HospitalComment on above:Result Comment: Vaccinated: >=12mIU/mL, Positive (Immune) Unvaccinated: <8mIU/mL, Negative (Not Immune) 8-11.99 mIU/mL: Indeterminate, (Considered Not Immune)Performed By: #### 61361-9, 64483-6, CMP, CBCA, 23869-9, 3040-3 #### [facility] ([id number]) [address] [address], [address] [place], [place] [address]CYSNSVPFVSlr 05-72-6959Hsdqztbbmw (Bld) [Mass/Vol]15.9 g/dLHigh 11.7-15.5ProMedMercy HealthComment on above:Performed By: #### 84651-2, 69436-8, CMP, CBCA, 92355-0, 3040-3 #### [facility] ([id number]) [address] [place], [place] [address]NJXQMSua 45-13-8580Nrgois [Catalytic activity/Vol]56 U/LNormal [facility]ica [facility] HealthcareComment on above:Performed By: #### 29197-0, 92870-1, CMP, CBCA, 04955-2, 3040-3 #### [facility] ([id number]) [address] [place], [place] [address]NLEDJKKSHga 74-16-9416Zhpktvbvt [Mass/Vol]1.6 mg/dLLow1.8-2.6 [facility] HealthcareComment on above:Performed By: #### 27440-9, 62197-8, CMP, CBCA, 05120-8, 3040-3 #### [facility] ([id number]) [address], [address] [place], [place] [address]HI BRAIN WO CONTon 74-54-2139GX BRAIN WO CONTMR BRAIN WO CONT MR BRAIN WO CONT [...] by Juana Saavedra DO on 09/09/2023 5:55 PMNormalProMedica Adirondack HospitalPOTASSIUMon 81-35-5523Fjoszxxby [Moles/Vol]2.8 mmol/LLow3.5-5.0ProParkview Health Montpelier Hospitalca Uk HealthcareComment on above:Performed By: #### 00071-7, 99989-6, CMP, CBCA, 95230-8, 3040-3 #### [facility] ([id number]) [address], [address] [place], [place] [address]Cqkkxdpjw [Moles/Vol]3.3 mmol/LLow3.5-5.0ProElyria Memorial HospitalComment on above:Performed By: #### 28377-0, 84406-2, CMP, CBCA, 10186- 0, 3040-3 #### [facility] ([id number]) [address], [address] [place], [place] [address]BNUJM CARDIAC W/ NAon 15-16-6450GMVQH'S TESTNormalProParkview Health Montpelier Hospitalca Adirondack HospitalComment on above:Performed By: #### 86562-7, 47173-7, CMP, CBCA, 47444-1, 3040-3 #### [facility] ([id number]) [address], [address] [place], [place] [address]QWFQ,DEFICIT3.8 MMOL/LHigh0.0-2.0[facility] Comment on above:Performed By: #### 64126-4, 93307-2, CMP, CBCA, 37249-1, 3040-3 #### [facility] ([id number]) [address], [address] [place] [address]Wmjs aipbwuehkih93.6 [degF]Kixwxg35.0[facility] Comment on above:Performed By: #### 06109-9, 54937-4, CMP, CBCA, 17183-9, 3040-3 #### [facility] ([id number]) [address], [address] [place] [address]Pmssjlr [Mass/Vol]188 mg/yMJsxv05-91PbzGufntnOhioHealth Doctors Hospital Comment on above:Performed By: #### 63047-2, 42310-0, CMP, CBCA, 36276-5, 3040-3 #### [facility] ([id number]) [address], [address] [place] [address]XTP0 (Bld) [Moles/Vol]21.0 mmol/JLtn18-82ZusHtcqawElyria Memorial HospitalComment on above:Performed By: #### 07104-3, 66269-5, CMP, CBCA, 64162- 0, 3040-3 #### [facility] ([id number]) [address], [address] [place] [address]Qobkubonoa (Bld) [Volume fraction]45 %Fbmsbu03-08BonBzmsyjElyria Memorial HospitalComment on above:Performed By: #### 53779-4, 11534-9, CMP, CBCA, 36801-6, 3040-3 #### [facility] ([id number]) [address], [address] [place], [place] [address]Rdyuwhesce (Bld) [Mass/Vol]14.6 g/qAMloicf80.7-15.5PKettering Health Main CampusComment on above:Performed By: #### 88257-3, 05544-3, CMP, CBCA, 84217-4, 3040-3 #### [facility] ([id number]) [address], [address] [place], [place] [address]TSCP. O2 CONC.21 %NormalProElyria Memorial HospitalComment on above:Performed By: #### 30990-4, 13433-3, CMP, CBCA, 33515-3, 3040-3 #### [facility] ([id number]) [address], [address] [place], [place] [address]TTKJXTO CALCIUM4.6 mg/dLNormal4.5-5.3PKettering Health Main Campus Comment on above:Performed By: #### 19456-6, 60773-0, CMP, CBCA, 37437-0, 3040-3 #### [facility] ([id number]) [address], [address] [place], [place] [address]Ktfkxv (Bld) [Partial pressure]113 mm[Hg]Vmxg18-719VlwWzkoop [place] HospitalComment on above:Performed By: #### 70830-0, 10888-7, CMP, CBCA, 55118-8, 3040-3 #### [facility] ([id number]) [address], [address] [place], [place] [address]Ufjedr saturation in Blood97.2 %Normal>90ProElyria Memorial HospitalComment on above:Performed By: #### 46581-9, 38227-2, CMP, CBCA, 21119- 0, 3040-3 #### [facility] ([id number]) [address], [address] [place], [place] [address]KFK526.2 XJZLGux72-01MhsYohnup [place] HospitalComment on above: Performed By: #### 81500-0, 24863-2, CMP, CBCA, 77568-9, 3040-3 #### [facility] ([id number]) [address], [address] [place], [place] [address]xI (Bld)7.396 [pH]Normal7.350-7.450Pro[facility] Comment on above:Performed By: #### 24601-7, 97490-5, CMP, CBCA, 62060-1, 3040-3 #### [facility] ([id number]) [address], [address] [place], [place] [address]Ekogszsly [Moles/Vol]3.2 mmol/LLow3.5-5.0ProParkview Health Montpelier Hospitalca [facility]ondack HospitalComment on above:Performed By: #### 95970-8, 20225-6, CMP, CBCA, 47568- 0, 3040-3 #### [facility] ([id number]) [address], [address] [place], [place] [address]XQNFTX SITEALINENormalProElyria Memorial HospitalComment on above: Performed By: #### 50834-3, 91881-9, CMP, CBCA, 10357-3, 3040-3 #### [facility] ([id number]) [address], [address] [place], [place] [address]QGORVH TYPEArterialNormalProChildren'S Hospital For Rehabilitation HospitalComment on above:Performed By: #### 25343-1, 59786-3, CMP, CBCA, 29718-5, 3040-3 #### [facility] ([id number]) [address], [address] [place], [place] [address]Hnvxuw [Moles/Vol]136 mmol/VJwqrtr954-627MtnZpusqv [place] HospitalComment on above:Performed By: #### 26770-0, 42797-6, CMP, CBCA, 22971- 0, 3040-3 #### [facility] ([id number]) [address], [address] [place], [place] [address]Sjqkrwzj Pathologyon 91-44-1825Iybqfwkr PathologyNormalOhioHealth Doctors HospitalComment on above:Result Comment: [facility] [address] [place], [place] [address] Surgical Pathology Consultation Patient Name:PENNY ABDIOB:1960 (Age: 63)Gender:FTaken:09/09/2023eported:09/12/2023hysician(s):Sophia Khalil MD ( )Copy To: Rec. #:[id number]: #[id number] Final Pathologic Diagnosis Gastric biopsy: Mild chronic gastritis. Negative for helicobacter organisms on routine H&E examination. Negative for dysplasia or malignancy. Report Electronically Signed Out st09/12/2023Chasity Brown MD Interpretation performed at [facility], [address] [place] [address], License number: [id number]. Clinical History Acute cholangitis. Gross Description Received in formalin labeled JIN, gastric biopsy are 3 cunningham soft tissue bits, 0.1 cm to 0.2 cm. The specimen is filtered and submitted entirely in a single cassette. (1, ns, [id number], m8) . /09/10/2023[place] Specimen(s) Received Gastric biopsy Fee Codes(s): 1; 67558Wqaynasd PathologyNormalCoshocton Regional Medical Centerca [place] HealthcareComment on above:Result Comment: [facility] [address] [place] [address] Surgical Pathology Consultation Patient Name:PENNY ABDIOB:1960 (Age: 63)Gender:FTaken:09/09/2023eported:09/12/2023hysician(s):Fish Cortes MD ([phone])Copy To: Rec. #:[id number]: #[id number] Final Pathologic Diagnosis Gallbladder: Chronic cholecystitis. Negative for dysplasia or malignancy. Report Electronically Signed Out st09/12/2023Chasity Brown MD Interpretation performed at [facility], [address] [place], [address], License number: [id number]. Clinical History Acute cholecystitis. Gross Description Received in formalin labeled ABDI, gallbladder is an intact gallbladder that measures, 14.4 x 3.2 x 2.9 cm with a cystic duct of 0.4 cm. No lymph node is identified adjacent to the cystic duct. The serosal surface is cunningham to purple- mena with an area of cunningham to purple-mena granular soft tissue consistent with hepatic bed. The gallbladder is opened and filled with green viscous bile. No calculusis identified within the lumen. The mucosa is cunningham-brown and velvety. The gallbladder wall is 0.2 cmin thickness. Planting Machine Operator cross-sections are submitted within a single cassette. (1, ss, [id number],m1) DM. dm/09/10/2023GP Specimen(s) Received Gallbladder Fee Codes(s): 1; 25816WDGTOABV Ion 33-60-9196Xxyjtwyo I.cardiac [Mass/Vol]0.11 ng/mLHigh 0.00-0.04ProParkview Health Montpelier Hospitalca Uk HealthcareComment on above:Result Comment: Concentrations greater than or equal to 0.05 ng/ml are considered elevated. Elevations of Troponin may be due to causes other than myocardial ischemia. Recommend serial Troponin testing be performed. Performed By: #### 20144-9, 25218- 9, CMP, CBCA, 86318-8, 3040-3 #### [facility] ([id number]) [address], [address] [place], [place] [address]LB ABDOMEN LMTDon 30-25-3337ML ABDOMEN LMTDUS ABDOMEN LMTD US ABDOMEN LMTD WITH LIMITED [...] by Farhad Muñoz MD on 09/09/2023 12:03 AMNormalProElyria Memorial HospitalUS RETROPERITONEAL COMPLETEon 60-18-0334RN RETROPERITONEAL COMPLETEUS RETROPERITONEAL COMPLETE ULTRASOUND RETROPERITONEUM INDICATION: Left-sided flank [...] by Calvin Lewis MD on 09/09/2023 9:25 PMNormalOhioHealth Doctors Hospital BLOOD CULTUREon 13-14-3581Qvyxyenh identified Aer cx Nom (Bld)CULTURE RESULTS NO GROWTH 5 DAYSNoBlanchard Valley Health SystemBacteria identified Aer cx Nom (Bld)CULTURE RESULTS NO GROWTH 5 DAYSNoBlanchard Valley Health SystemCBC AND AUTO DIFFon 09-08-2023 ABSOLUTE BASOPHIL0.3 X10E9/LHigh0.0-0.2ProMedMercy HealthComment on above:Performed By: #### 34273-1, 08351-2, CMP, CBCA, 61760-8, 3040-3 #### [facility] ([id number]) [address], [address] [place], [place] [address]ZRKBXBBH AFZGBATNWQ75.9 X10E9/LHigh1.5-6.6ProElyria Memorial HospitalComment on above:Performed By: #### 28197-0, 62244-8, CMP, CBCA, 36803- 0, 3040-3 #### [facility] ([id number]) [address], [address] [place], [place] [address]Jfargucoi/100 WBC (Bld)1.3 %NormalOhioHealth Doctors Hospital Comment on above:Performed By: #### 25634-1, 50706-5, CMP, CBCA, 81248-2, 3040-3 #### [facility] ([id number]) [address], [address] [place], [place] [address]Joigntnapyg (Bld) [#/Vol]0.0 10*3/uLNormal0.0-0.4ProElyria Memorial HospitalComment on above:Performed By: #### 17978-5, 85685-4, CMP, CBCA, 56543-1, 3040-3 #### [facility] ([id number]) [address], [address] [place], [place] [address]Dthkvgambzy/100 WBC (Bld)0.1 %NormalOhioHealth Doctors Hospital Comment on above:Performed By: #### 78570-1, 31037-8, CMP, CBCA, 39580-9, 3040-3 #### [facility] ([id number]) [address], [address] [place], [place] [address]Bwvdnejehjb distribution width (RBC) [Ratio]13.3 %Normal 11.5-15.0ProElyria Memorial HospitalComment on above:Performed By: #### 88474-2, 76819-5, CMP, CBCA, 85912-3, 3040-3 #### [facility] ([id number]) [address], [address] [place], [place] [address]Rxhyvgfrhr (Bld) [Volume fraction]47.6 %Nrwe32-46OutHxibrb [place] HospitalComment on above:Performed By: #### 93529-7, 07281-4, CMP, CBCA, 50490-7, 3040-3 #### [facility] ([id number]) [address], [address] [place], [place] [address]Dytwkyexcg (Bld) [Mass/Vol]16.6 g/iGXzuv63.7-15.5PParkview Health Montpelier Hospital HospitalComment on above:Performed By: #### 44719-8, 62542-0, CMP, CBCA, 80767-8, 3040-3 #### [facility] ([id number]) [address], [address] [place], [place] [address]Oznghpldnkl (Bld) [#/Vol]1.8 10*3/uLNormal1.0-3.5ProMedMagruder Memorial Hospital HospitalComment on above:Performed By: #### 32762-8, 46021-6, CMP, CBCA, 21816-0, 3040-3 #### [facility] ([id number]) [address], [address] [place], [place] [address]Annzxvxtunr/100 WBC (Bld)8.9 %NormalProChildren'S Hospital For Rehabilitation Hospital Comment on above:Performed By: #### 35946-0, 47804-7, CMP, CBCA, 27320-0, 3040-3 #### [facility] ([id number]) [address], [address] [place], [place] [address]JSQ (RBC) [Entitic mass]29.5 myGzmzbi61-06ChiTzbjah [place] HospitalComment on above:Performed By: #### 92136-2, 37190-8, CMP, CBCA, 07552- 0, 3040-3 #### [facility] ([id number]) [address], [address] [place], [place] [address]ADGM (RBC) [Mass/Vol]34.9 g/rXSzssdf75-61CkzQjtfdp [place] HospitalComment on above:Performed By: #### 58826-1, 48029-7, CMP, CBCA, 05339- 0, 3040-3 #### [facility] ([id number]) [address], [address] [place], [place] [address]POX (RBC) [Entitic vol]85 yHGgjkhr82-000AeoWqvjna [place] HospitalComment on above:Performed By: #### 12601-0, 26051-5, CMP, CBCA, 15085- 0, 3040-3 #### [facility] ([id number]) [address], [address] [place], [place] [address]Kkeiwhjro (Bld) [#/Vol]1.3 10*3/uLHigh0-0.9ProElyria Memorial HospitalComment on above:Performed By: #### 80344-9, 90230-6, CMP, CBCA, 35999- 0, 3040-3 #### [facility] ([id number]) [address], [address] [place], [place] [address]Fxhmiogym/100 WBC (Bld)6.6 %NormalOhioHealth Doctors Hospital Comment on above:Performed By: #### 11506-7, 88873-4, CMP, CBCA, 39385-0, 3040-3 #### [facility] ([id number]) [address], [address] [place], [place] [address]Dgwgvyystjh/100 WBC (Bld)83.1 %NormalOhioHealth Doctors Hospital Comment on above:Performed By: #### 42260-5, 68186-2, CMP, CBCA, 91634-2, 3040-3 #### [facility] ([id number]) [address], [address] [place], [place] [address]Vdeifolg mean volume (Bld) [Entitic vol]8.7 fLNormal7-12 ProMedica [facility]ondack HospitalComment on above:Performed By: #### 40601-8, 07386-7, CMP, CBCA, 13663-6, 3040-3 #### [facility] ([id number]) [address], [address] [place], [place] [address]Bfzvaqvoy (Bld) [#/Vol]162 10*3/aPJyuqpy739-669SzwCnmoek [place] HospitalComment on above:Performed By: #### 90583-0, 60905-2, CMP, CBCA, 98013- 0, 3040-3 #### [facility] ([id number]) [address], [address] [place], [place] [address]JUY COUNT5.64 X10E12/LHigh3.80-5.20ProChildren'S Hospital For Rehabilitation Hospital Comment on above:Performed By: #### 52801-7, 92438-9, CMP, CBCA, 20827-1, 3040-3 #### [facility] ([id number]) [address], [address] [place], [place] [address]QME (Bld) [#/Vol]20.3 10*3/uLHigh4.0-11.0ProParkview Health Montpelier Hospitalca [facility] HospitalComment on above:Performed By: #### 99510-0, 59456-2, CMP, CBCA, 33879- 0, 3040-3 #### [facility] ([id number]) [address], [address] [place], [place] [address]QCWSXISBVIPFX METABOLIC PANELon 86-66-6799Kfwbope [Mass/Vol]4.1 g/dLNormal3.2-5.3ProMedica [facility]ond[facility] HospitalComment on above:Performed By: #### 22511-5, 98226-5, CMP, CBCA, 21601-8, 3040-3 #### [facility] ([id number]) [address], [address] [place], [place] [address]VSK [Catalytic activity/Vol]64 U/SCqffpi66-111SelAldfxu [facility] HospitalComment on above:Performed By: #### 97721-4, 90877-1, CMP, CBCA, 05356- 0, 3040-3 #### [facility] ([id number]) [address], [address] [place], [place] [address]QFQ [Catalytic activity/Vol]10 U/LNormal0-31ProMedica [facility] HospitalComment on above:Performed By: #### 31574-5, 84565-0, CMP, CBCA, 16767- 0, 3040-3 #### [facility] ([id number]) [address], [address] [place], [place] [address]Slqsx gap [Moles/Vol]13 mmol/LNormal5-15ProMedica [facility] HospitalComment on above:Performed By: #### 24050-2, 97941-3, CMP, CBCA, 16587- 0, 3040-3 #### [facility] ([id number]) [address], [address] [place], [place] [address]TXJ [Catalytic activity/Vol]25 U/LNormal0-41ProMedica [facility] HospitalComment on above:Performed By: #### 28181-6, 49659-4, CMP, CBCA, 23053- 0, 3040-3 #### [facility] ([id number]) [address], [address] [place], [place] [address]Dwasnoola [Mass/Vol]1.5 mg/dLHigh0.3-1.2ProMedusa health university hospital [place] HospitalComment on above:Performed By: #### 98582-3, 71665-6, CMP, CBCA, 63849- 0, 3040-3 #### [facility] ([id number]) [address], [address] [place], [place] [address]Kkhiqep [Mass/Vol]8.9 mg/dLNormal8.5-10.5ProMedusa health university hospital [place] HospitalComment on above:Performed By: #### 20307-5, 02825-7, CMP, CBCA, 74503- 0, 3040-3 #### [facility] ([id number]) [address], [address] [place], [place] [address]Uuyjroke [Moles/Vol]106 mmol/YQpmgjc15-276UqqYkqffi [place] HospitalComment on above:Performed By: #### 56311-1, 44537-9, CMP, CBCA, 22518- 0, 3040-3 #### [facility] ([id number]) [address], [address] [place], [place] [address]VW6 [Moles/Vol]20 mmol/RHfh68-74HtlZfszetMercy HealthComment on above:Performed By: #### 17899-1, 84557-1, CMP, CBCA, 91460-1, 3040-3 #### [facility] ([id number]) [address], [address] [place], [place] [address]Epdnyfvpzu [Mass/Vol]0.75 mg/dLNormal0.40-1.00ProElyria Memorial HospitalComment on above:Result Comment: METHOD TRACEABLE TO IDMS STANDARD Performed By: #### 08261-9, 75999-6, CMP, CBCA, 14067-1, 3040-3 #### [facility] ([id number]) [address], [address] [place], [place] [address]YQO/1.73 sq M.predicted among non-blacks MDRD (S/P/Bld) [Vol rate/Area]88 mL/min/{1.73_m2}Normal>59ProElyria Memorial HospitalComment on above: Result Comment: Reported eGFR is based on the CKD-EPI 2020 equation that does not use a race coefficient.Performed By: #### 59332-7, 52206-3, CMP, CBCA, 09594-1, 3040-3 #### [facility] ([id number]) [address], [address] [place], [place] [address]Bezgwjd [Mass/Vol]161 mg/jWQaxp11-59CotLxiwzoElyria Memorial Hospital Comment on above:Performed By: #### 68388-0, 59433-5, CMP, CBCA, 98015-9, 3040-3 #### [facility] ([id number]) [address], [address] [place], [place] [address]Fdhwwmtgn [Moles/Vol]3.7 mmol/LNormal3.5-5.0ProElyria Memorial HospitalComment on above:Performed By: #### 23523-7, 85108-2, CMP, CBCA, 83523- 0, 3040-3 #### [facility] ([id number]) [address], [address] [place], [place] [address]Zfngrqj [Mass/Vol]6.3 g/dLNormal6.0-8.0[facility] Comment on above:Performed By: #### 87513-2, 00943-8, CMP, CBCA, 33808-5, 3040-3 #### [facility] ([id number]) [address], [address] [place], [place] [address]Qqjjqw [Moles/Vol]139 mmol/XHgfgfj893-774OpjFoaeld [place] HospitalComment on above:Performed By: #### 86847-0, 11481-1, CMP, CBCA, 25615- 0, 3040-3 #### [facility] ([id number]) [address], [address] [place], [place] [address]Ehvh nitrogen [Mass/Vol]16 mg/dLNormal5-27ProElyria Memorial HospitalComment on above:Performed By: #### 87632-2, 56500-7, CMP, CBCA, 28433- 0, 3040-3 #### [facility] ([id number]) [address], [address] [place], [place] [address]WS Clinical Summaryon 10-75-9651PI Clinical Summary [address] [address] ED Clinical Summary Person Information Name: SOUMYA ABDI/Sam Age: 63 Years : 1960 Sex: Female Language: Czech PCP: LUDWIN WEN MD Marital Status: Visit [...] 09/08/2023 12:50:12 09/08/2023 12:50:12 09/08/2023 12:50:12 ADDRESS: [address] [place] [id number] PHYS DOC NOTES: MEDICAL INFORMATION: Prescriptions Given: PATIENT EDUCATION INFORMATION: Instructions: Follow up: DIAGNOSIS: 1:Elevated troponin; 2:Back pain; 3:Hypertension; CholedocholithiasisNormal [facility] CenterED Note-Nursingon 00-36-3102OE Note-NursingPROMEDICA called back ([phone]) to get an update about this patient. Stated that they are still on discharge dependent and will call back once they have an available bed.[facility] CenterED Patient Education Noteon 78-40-6883TW Patient Education NoteNormChildren's Hospital Los Angeles Medical CenterED Patient Summaryon 96-62-5143FP Patient Summary [address] [address] Patient Discharge Instructions Person Information Name: SOUMYA ABDI Age: 63 Years Arrival Date: 09/07/2023 13:54:57 Discharge Diagnosis: 1:Elevated troponin; 2:Back pain; 3:Hypertension; Choledocholithiasis Primary Care Physician: LUDWIN WEN MD Provider Information Primary Provider: Scotty Huggins DO Advanced Tungsten Tender:Chad Ying PA-C The exam and treatment you received in the Emergency Department were for an urgent problem and are not intended as complete care. It is important that you follow up with a doctor, nurse practitioner,or physician?s assistant teaching professor for ongoing care. If your symptoms become [...] opioids can be used to help relieve ylzhgqts-gu-dlqnbx pain and are often prescribed following a [...] and have fewer risks and side effects. Optionsmay include: ? Pain relievers such as acetaminophen, [...] unused prescription opioids: Find your community drug take- back program or SideStep mail-back program, or flush them down the toilet, following guidance from the Food and Drug Administration (www.fda.gov/Drugs/ResourcesForYou). ? Visit www.cdc.gov/drugoverdose to learn about the risks of opioids abuse and overdose. ? If you believe you may be struggling with addiction, tell your health workforce investment act career manager and ask for guidance or call [facility]?S National Helpline at 7-128-801-FITO. k Source: US Department of Health and Human Services/Center for Disease Control & Prevention [facility] (more content not included)...[facility] HospitalGlucose Glucometer (BldC) [Mass/Vol]on 62-22-5361Bacpgcl [Mass/Vol]111 mg/vQMjzq20-42 ProMedicSumma Health Akron CampusGlucose [Mass/Vol]118 mg/qGZayg55-49OtoMxssmxElyria Memorial HospitalHEMOGLOBINon 69-85-2792Hoktgzuflx (Bld) [Mass/Vol]15.5 g/dLNormal 11.7-15.5ProMedica Uk HealthcareComment on above:Performed By: #### PLTCT, THYR, 718-7, 57512-5, 78791-4, PINR #### [facility] ([id number]) [address], [address] [place], [place] [address]KDF A1C (GLYCO-HGB)on 91-28-9263Rlxgftg [Mass/Vol]128 mg/dL NormalProElyria Memorial HospitalComment on above:Performed By: #### 32311-3, 67299-6, CMP, CBCA, 55168-3, 3040-3 #### [facility] ([id number]) [address], [address] [place], [place] [address]YsW8m (Bld) [Mass fraction]6.1 %High4.4-5.6ProElyria Memorial HospitalComment on above:Result Comment: NOTE ADA Guidelines Result HgbA1c Normal : less than 5.7 % Prediabetes : 5.7 % to 6.4 % Diabetes : > 6.4 % Use with caution in patients with abnormal hemoglobin variants as the half-life of red blood cells and in vivo glycation rates are affected.Performed By: #### 95127-6, 35403-0, CMP, CBCA, 41002-6, 3040-3 #### [facility] ([id number]) [address], [address] [place], [place] [address]RNJHUYli 40-45-5496Ogsruu [Catalytic activity/Vol]14 U/LNormal 11-82ProElyria Memorial HospitalComment on above:Performed By: #### 90840-8, 81450-9, CMP, CBCA, 49862-3, 3040-3 #### [facility] ([id number]) [address], [address] [place], [place] [address]Zfunzom (P rick) [Moles/Vol]on 66-88-3911Nzmdcok [Moles/Vol]1.8 mmol/LNormal0.4-2.0ProElyria Memorial HospitalComment on above:Performed By: #### 59945-0, 15565-4, CMP, CBCA, 55343-4, 3040-3 #### [facility] ([id number]) [address], [address] [place], [place] [address]OCUDQUL W/REFLEX2.3 mmol/LHigh0.4-2.0[facility] Comment on above:Performed By: #### 63912-6 #### [facility] ([id number]) [address], [address] [place], [place] [address]Eusfb 1996 panelon 41-57-8334Kawfobgpcei [Mass/Vol]185 mg/dL Sljiiu452-065AcqRpeinp [place] HospitalComment on above:Performed By: #### 24275- 9, 66232-9, CMP, CBCA, 86692-7, 3040-3 #### [facility] ([id number]) [address], [address] [place], [place] [address]Cnxxuqfbwgb in HDL [Mass/Vol]50 mg/dLNormal>39ProChildren'S Hospital For Rehabilitation HospitalComment on above:Result Comment: HDL <40 mg/dL - High Risk HDL > or = 40mg/dL- Desirable HDL >60 mg/dL - Negative Risk Performed By: #### 38790-9, 63971- 9, CMP, CBCA, 51689-1, 3040-3 #### [facility] ([id number]) [address], [address] [place], [place] [address]Ogffyanuqid in LDL [Mass/Vol]109 mg/dLNormal<130ProChildren'S Hospital For Rehabilitation HospitalComment on above:Result Comment: LDL <100 mg/dL - Desirable LDL >160 mg/dL - High Risk Performed By: #### 92333-2, 53476- 9, CMP, CBCA, 21700-7, 3040-3 #### [facility] ([id number]) [address], [address] [place], [place] [address]Xizuvwaizwy in VLDL [Mass/Vol]26 mg/dLNormal0-30ProChildren'S Hospital For Rehabilitation HospitalComment on above:Performed By: #### 69586-2, 32037-3, CMP, CBCA, 34065- 0, 3040-3 #### [facility] ([id number]) [address], [address] [place], [place] [address]YKKQDPGWMKI:HDL3.9Nbidse4.0-5.0ProMedica [facility] HospitalComment on above:Performed By: #### 45829-9, 01012-7, CMP, CBCA, 06451-3, 3040-3 #### [facility] ([id number]) [address], [address] [place], [place] [address]Vlyrbrvpawmh [Mass/Vol]131 mg/dPKirvuw80-633AmmAhpybb [facility] HospitalComment on above:Performed By: #### 58679-1, 01620-0, CMP, CBCA, 67544- 0, 3040-3 #### [facility] ([id number]) [address], [address] [place], [place] [address]URZNJEKPOae 32-20-5983Hryuslgqx [Mass/Vol]1.7 mg/dLLow1.8-2.6 [facility] HospitalComment on above:Performed By: #### 41298-3, 69785-1, CMP, CBCA, 77920-7, 3040-3 #### [facility] ([id number]) [address], [address] [place], [place] [address]XDMQWGVI COUNT AND MPVon 25-11-1111Foibximh mean volume (Bld) [Entitic vol]8.7 fLNormal7-12ProMedica [place] HospitalComment on above:Performed By: #### PLTCT, THYR, 718-7, 28968-7, 54973-3, PINR #### [facility] ([id number]) [address], [address] [place], [place] [address]Lkuiqvgnn (Bld) [#/Vol]156 10*3/cSJyklba669-688MixYlbrff [facility] HospitalComment on above:Performed By: #### PLTCT, THYR, 718-7, 71591-5, 08934- 9, PINR #### [facility] ([id number]) [address], [address] [place], [place] [address]RHGQHAM AND INRon 49-98-7984FWJ Coag (PPP) [Relative time]1.2 {INR}High0.8-1.1PKettering Health Main CampusComment on above:Performed By: #### 25156-6, 62568-5, CMP, CBCA, 88267-0, 3040-3 #### [facility] ([id number]) [address], [address] [place], [place] [address]FU Coag (PPP) [Time]14.2 sHigh9.8-13.2PKettering Health Main Campus Comment on above:Performed By: #### 63156-7, 34337-6, CMP, CBCA, 40136-1, 3040-3 #### [facility] ([id number]) [address], [address] [place], [place] [address]Cglwzmypnudiv IA [Mass/Vol]on 37-92-4158IGUZNKRSRBQYL1.06 ng/mL High<0.05ProElyria Memorial HospitalComment on above:Result Comment: NOTE <0.50 ng/mL - Low risk of severe sepsis and/or septic shock. <2.00 ng/mL - Recommend retesting within 6-24 hours. >2.00 ng/mL - High risk of sepsis and/or septic shock.Performed By: #### 41819- 9, 68339-9, CMP, CBCA, 56507-4, 3040-3 #### [facility] ([id number]) [address], [address] [place], [place] [address]ITIPMAT PROFILEon 02-09-2213Jngn T4 [Mass/Vol]0.77 ng/dLNormal 0.61-1.60ProElyria Memorial HospitalComment on above:Performed By: #### 59831-6, 64243-0, CMP, CBCA, 19194-6, 3040-3 #### [facility] ([id number]) [address], [address] [place], [place] [address]KYA8.07 uIU/mLNormal0.49-4.67ProE[facility] Memorial HospitalComment on above:Performed By: #### 82811-8, 15847-1, CMP, CBCA, 26820-5, 3040-3 #### [facility] ([id number]) [address], [address] [place], [place] [address]WNCBMZQA Ion 04-47-5237Gnojcpof I.cardiac [Mass/Vol]0.17 ng/mL High0.00-0.04[facility] Doctors HospitalComment on above:Result Comment: Concentrations greater than or equal to 0.05 ng/ml are considered elevated. Elevations of Troponin may be due to causes other than myocardial ischemia. Recommend serial Troponin testing be performed. Performed By: #### 18885-9, 68954- 9, CMP, CBCA, 71231-1, 3040-3 #### [facility] ([id number]) [address], [address] [place], [place] [address]Cbvjhkop I.cardiac [Mass/Vol]0.15 ng/mLHigh0.00-0.04Ohio[facility] Doctors HospitalComment on above:Result Comment: Concentrations greater than or equal to 0.05 ng/ml are considered elevated. Elevations of Troponin may be due to causes other than myocardial ischemia. Recommend serial Troponin testing be performed. Performed By: #### 18639-7, 66662- 9, CMP, CBCA, 92027-2, 3040-3 #### [facility] ([id number]) [address], [address] [place], [place] [address]Lnfisdvp Documentson 07-55-9587Zumsxuvi Documents [id number]#1.00TIFFNormalRegency Hospital Cleveland EastTroponin 9 Hr.on 60-84-7981Enrumjje737.60 pg/mAJtzbtjfl06.10-27.10[facility] EastComment on above:Result Comment: Critical Result Verified by Previous Result Critical Result I_TnIHS:383.6 Called to and read back by: JULIO CONTRERAS at: 09/07/2023 23:26 by:[id number] The 95% CI (Confidence Interval) PPV (Positive Predictive Value) for myocardial infarction in females is 38 pg/mL, in males 51 pg/mL. The results should be used in conjunction with clinical conditions of myocardial infarction. (Access High Sensitivity Troponin I Instructions For Use, Dwight Phokki, January 2018)Performed By: #### [id number] ####[facility] [address] [place], [place] [address]xVBU Coag (PPP) [Time]on 09-08-2023 aPTT Coag (Bld) [Time]31 iBiraad16-80NcfQvfnvu Uk HealthcareComment on above: Performed By: #### 96748-2, 67565-8, CMP, CBCA, 96127-1, 3040-3 #### [facility] ([id number]) [address], [address] [place], [place] [address]NV Draw & Holdon 20-59-8564BK D&HSample drawn for Blood BaNormal [facility] Cleveland EastComment on above:Performed By: #### [id number], [id number], 7551041, [id number], [id number], [id number], [id number] ####[facility] [address] [place], [place] [address]WBMme 94-31-1115Ouchu gap [Moles/Vol]21 mmol/LHigh6-16[facility] Hospital [facility] EastComment on above: Performed By: #### [id number], 8717294, 8040124, 69585346, 356175370, 74744866, 75415205 ####[facility] [address] [place], [place] [address]Wjvoynk [Mass/Vol]10.1 mg/dLNormal8.9-11.1FAv[facility] Comment on above:Performed By: #### 13931146, 5529908, 5269255, 61605703, 303365765, 30589227, 32532261 ####[facility] [address] [place], [place] [address]Xemcojaq [Moles/Vol]100 mmol/WLiz882-917DiglvlRegency Hospital Cleveland EastComment on above:Performed By: #### 07225802, 6596248, 7242886, 80770362, 484865898, 29671845, 20034496 ####[facility] [address] [place], [place] [address]QO5 [Moles/Vol]17 mmol/DHme77-34 [facility] EastComment on above:Performed By: #### 00741878, 2687466, 3336943, 13520881, 810098822, 10821403, 92771665 ####[address] [place], [place] [address]Jvedmyyjnv [Mass/Vol] 0.6 mg/dLNormal0.5-1.3FAvita Health System Galion HospitalComment on above:Performed By: #### 99376278, 7797293, 8617620, 37702343, 486497785, 22501165, 01108123 ####[facility] [address] [place] [address] Glucose [Mass/Vol]257 mg/xUUqeh83-937YnisvlRegency Hospital Cleveland EastComment on above:Performed By: #### 15510309, 6024409, 9404733, 72347572, 369451963, 15270213, 83524223 ####[facility] [address] [place], [place] [address]Voaesfxim [Moles/Vol]3.6 mmol/LNormal3.5-5.3FAvita Health System Galion HospitalComment on above:Performed By: #### 09460081, 0085279, 4009679, 64720153, 067493261, 28908268, 99697464 ####[facility] [address] [place], [place] [address]Rmungq [Moles/Vol]134 mmol/LLow 135-145[facility] EastComment on above:Performed By: #### 74549208, 2753443, 6143695, 01494230, 193765833, 82178009, 69578672 ####[facility] [address] [place], [place] [address]Xfiw nitrogen [Mass/Vol]16 mg/dLNormal5-21[facility] EastComment on above: Performed By: #### 90705890, 4352750, 3908839, 58774015, 056625637, 38323990, 99589194 ####[facility] [address] [place], [place] [address]Iocb nitrogen/Creatinine [Mass ratio]27 No JlnkuRnzq75-37KbyqydRegency Hospital Cleveland EastComment on above:Performed By: #### 88120171, 0632112, 7965004, 32452568, 583805012, 88082968, 30210635 ####[facility] [address] [place], [place] [address]HUZBjn 31-57-5177Wozg HB Qnt1.32 mmol/LHigh0.02-0.27[facility] EastComment on above:Performed By: #### 12100049, 5631629, 1799411, 84045862, 523635426, 12795001, 06140903 ####[address] [place], [place] [address]Jdr Gas Venon 88-68-0251Njweag TestNot ApplicableNormalFisher [facility] Comment on above:Performed By: #### 17429949 ####[address] [address]Ueswa byLABInvalid Interpretation Wayne HospitalComment on above:Performed By: #### 90032323 ####[address] [address]SDF1 ZZ71Iapxwfd Interpretation Wayne HospitalComment on above: Performed By: #### 23350246 ####[address] [address]uMW9 Ven38.1 vnAfAdsnkc45.0-50.0[facility] EastComment on above:Performed By: #### 91124295 ####[address] [address]iP Ven7.395Normal 7.320-7.430[facility] EastComment on above:Performed By: #### 31272161 ####[address] [address]Yhhbpc SiteOTHERNoMercy Health Lorain HospitalComment on above:Performed By: #### 92703599 ####[address] [address]Wruugw TypeVenous DrawNormalRegency Hospital [facility] East Comment on above:Performed By: #### 50087114 ####[address] [address]RGL w/ Auto Diffon 09-07-2023 Basophils/100 WBC (Bld)0.8 %Normal0.0-2.0[facility] EastComment on above:Performed By: #### 46322504, 0277367, 7562507, 05769107, 081229098, 22645814, 61097971 ####[address] [address]Pndfyfkjk/Leukocytes Auto (Bld) [Pure # fraction]0.1 E9/L Normal0.0-0.2FAvita Health System Galion HospitalComment on above:Performed By: #### 61677151, 3660667, 7626602, 20757257, 575369217, 36465957, 72523056 ####[facility] [address] [place], [place] [address]Jgutkpdcxlk (Bld) [#/Vol]0.0 E9/LNormal0.0-0.5FAvita Health System Galion HospitalComment on above: Performed By: #### 31810755, 8152809, 1396305, 67205580, 288454690, 66047921, 44244982 ####[address] [place], [place] [address]Snarmyvlslm/100 WBC (Bld)0.0 %Normal0.0-8.0[facility] Comment on above:Performed By: #### 24844311, 6639701, 5081372, 97909685, 284192770, 97260033, 64359374 ####[address] [address]Fdqxhpovlas (Bld) [#/Vol]1.5 E9/LNormal1.0-4.0 [facility] EastComment on above:Performed By: #### 12971316, 5328524, 4479505, 58701541, 000709133, 45056984, 87644898 ####[address] [address]Azicjiwsmre/100 WBC (Bld)8.9 %Low14.0-50.0[facility] EastComment on above:Performed By: #### 14891389, 8932939, 6668618, 76450759, 175752629, 16582238, 81183716 ####[address] [address] Monocytes (Bld) [#/Vol]0.6 E9/LNormal0.2-1.0[facility] EastComment on above:Performed By: #### 43580313, 0190672, 8753996, 45897773, 440658965, 44519358, 80897633 ####[facility] [address] [place], [place] [address]Ohkfemwpfyb (Bld) [#/Vol]14.8 E9/LHigh2.0-7.5FAvita Health System Galion HospitalComment on above:Performed By: #### 94055533, 2279990, 7748291, 28765119, 087043336, 50771151, 02839818 ####[address] [place], [place] [address]Qazdrzmtixy/100 WBC (Bld)86.9 %High 36.0-75.0[facility] EastComment on above:Performed By: #### 60360747, 7817112, 2342636, 76014105, 042089208, 87684071, 50637819 ####[address] [place], [place] [address]Wgqqcabwbjv distribution width (RBC) [Ratio]13.3 %Bjmgut10.9-14.2FAvita [facility] Comment on above:Performed By: #### 47228514, 2744701, 6458299, 56097217, 187779326, 30320031, 43610656 ####[address] [place], [place] [address]Andhvplbhl (Bld) [Volume fraction]49.2 %High 34.0-46.0[facility] EastComment on above:Performed By: #### 64525071, 0616031, 4868996, 01298254, 109858476, 73699980, 38236821 ####[address] [place], [place] [address]Rsauilsztf (Bld) [Mass/Vol]17.2 g/bJFktv23.0-16.0[facility] EastComment on above: Performed By: #### 65637891, 2668065, 5461861, 58165912, 140455217, 03255212, 18141467 ####[facility] [address] [place], [place] [address]KEW (RBC) [Entitic mass]29.0 zwAaqfjz93.0-34.0[facility] Comment on above:Performed By: #### 29041844, 3637279, 7613900, 43343921, 687971868, 97045128, 19363805 ####[facility] [address] [place] [address]NSKG (RBC) [Mass/Vol]34.9 g/yZMlvqez55.4-36.0[facility] EastComment on above:Performed By: #### 38612599, 6341472, 6607390, 30060101, 199832668, 43304235, 58075415 ####[facility] [address] [address]VZZ (RBC) [Entitic vol]83.1 fLNormal 80.0-100.0[facility] EastComment on above:Performed By: #### 46911456, 4295722, 1725832, 58189401, 560486393, 87397398, 23896095 ####[facility] [address] [address]Ddhwpizc mean volume (Bld) [Entitic vol]8.8 fLNormal6.4-10.8[facility] EastComment on above:Performed By: #### 53705875, 2069964, 7993649, 48498722, 948572733, 97829949, 50610403 ####[address] [address]Vfzbfzcvv (Bld) [#/Vol]191.0 E9/UMekfpd032.0-500.0[facility] EastComment on above:Performed By: #### 90335261, 6340835, 3043176, 28837530, 422956008, 30990567, 34997497 ####[facility] [address] [place], [place] [address]YJQ (Bld) [#/Vol]5.9 E12/LNormal 4.3-5.9[facility] EastComment on above:Performed By: #### 59437403, 3434246, 0416166, 54133456, 213217872, 73487263, 56030988 ####[facility] [address] [place], [place] [address]UNC corrected for nucl RBC Auto (Bld) [#/Vol]17.0 E9/LHigh4.0-11.0[facility] EastComment on above:Performed By: #### 37419965, 8716405, 9298713, 20688602, 139296424, 62779516, 59244624 ####[facility] [address] [place], [place] [address]XFTQSFKSMFvsuwvw By: SYSTEM SYSTEM on 93-29-1438Fqliubwa 383.60 pg/mLInvalid Interpretation Code10.10 - 27.10 pg/mLRemisol ChemComment on above:Result Comment: Critical Result Verified by Previous Result Critical Result I_TnIHS:383.6 Called to and read back by: JULIO CONTRERAS at: 09/07/2023 23:26 by:[id number] Data: The 95% CI (Confidence Interval) PPV (Positive Predictive Value) for myocardial infarction in females is 38 pg/mL, in males 51 pg/mL. The results should be used in conjunction withclinical conditions of myocardial infarction. (Access High Sensitivity Troponin I Instructions For Use, [employer], January 2018)Vynvbawv834.80 pg/mLInvalid Interpretation Code10.10 - 27.10 pg/mL Remisol ChemComment on above:Result Comment: Critical Result Verified by Previous Result Critical Result I_TnIHS:297.8 Called to and read back by: DR. CLEMENTE at: 09/07/2023 20:11:08 by:[id number] Data: The 95% CI (Confidence Interval) PPV (Positive Predictive Value) for myocardial infarction in females is 38 pg/mL, in males 51 pg/mL. The results should be used in conjunction withclinical conditions of myocardial infarction. (Access High Sensitivity Troponin I Instructions For Use, [employer], January 2018)Albumin [Mass/Vol]4.8 g/dLNormal3.3 - 5.0 gm/dLRemisol Chem Albumin/Globulin [Mass ratio]2.0 {ratio}Normal1.1 - 2.2Remisol ChemALP [Catalytic activity/Vol]73 [iU]/rJmoeni25 - 98 Int._Unit/LRemisol ChemALT No additional P-5'-P [Catalytic activity/Vol]11 [iU]/dNormal6 - 46 Int._Unit/L Remisol ChemAST [Catalytic activity/Vol]18 [iU]/dNormal5 - 43 Int._Unit/LRemisol ChemBilirubin [Mass/Vol]1.8 mg/dLHigh0.0 - 1.1 mg/dLRemisol Chem Bilirubin.direct [Mass/Vol]0.3 mg/dLNormal0.0 - 0.4 mg/dLRemisol Chem Bilirubin.indirect [Mass or moles/Vol]1.5 mg/dLHigh0.1 - 0.9 mg/dLRemisol Chem Globulin (S) [Mass/Vol]2.4 g/dLNormal1.4 - 4.0 gm/dLRemisol ChemLipase [Catalytic activity/Vol]15 U/NKswtvx54 - 58 unit/LRemisol ChemProtein [Mass/Vol] 7.2 g/dLNormal6.0 - 7.8 gm/dLRemisol MfpiMvrrzaxl700.00 pg/mLInvalid Interpretation Code10.10 - 27.10 pg/mLRemisol ChemComment on above:Result Comment: Critical Result Verified by Previous Result Critical Result I_TnIHS:264.0 Called to and read back by: CANDY WILLS at: 09/07/2023 18:20:37 by:[id number] Data: The 95% CI (Confidence Interval) PPV (Positive Predictive Value) for myocardial infarction in females is 38 pg/mL, in males 51 pg/mL. The results should be used in conjunction withclinical conditions of myocardial infarction. (Access High Sensitivity Troponin I Instructions For Use, [employer], January 2018)Anion gap [Moles/Vol]21 mmol/LHigh6 - 16 mEq/LRemisol ChemBeta HB Qnt1.32 mmol/LHigh0.02 - 0.27 mmol/LRemisol ChemCalcium [Mass/Vol]10.1 mg/dL Normal8.9 - 11.1 mg/dLRemisol ChemChloride [Moles/Vol]100 mmol/OOfn898 - 111 mmol/LRemisol ChemCO2 [Moles/Vol]17 mmol/LLow21 - 31 mmol/LRemisol Chem Creatinine [Mass/Vol]0.6 mg/dLNormal0.5 - 1.3 mg/dLRemisol KyksrVRL54 mL/min/1.73 e7Xfmxsj>=59mL/min/1.73 z7Bckwruy ChemGlucose [Mass/Vol]257 mg/dL High55 - 199 mg/dLRemisol ChemPotassium [Moles/Vol]3.6 mmol/LNormal3.5 - 5.3 mmol/LRemisol ChemSodium [Moles/Vol]134 mmol/QFfl120 - 145 mmol/LRemisol Chem Urea nitrogen [Mass/Vol]16 mg/dLNormal5 - 21 mg/dLRemisol ChemUrea nitrogen/Creatinine [Mass ratio]27 mg/opSmwk79 - 20Remisol ChemCHEMISTRYOrdered By: Roni Araiza on 22-67-7141Qqbsxrc [Mass/Vol]250 mg/oOPfjd83 - 99 mg/dLSHARE MEDICAL C[facility]VA POC SubsectionComment on above:Result Comment: Notified RN/MDPOC Device SN [id number] 1Invalid Interpretation CodeSHARE MEDICAL CENTER – ALVA POC SubsectionPOC User [id number] 1Invalid Interpretation CodeSHARE MEDICAL CENTER – ALVA POC SubsectionPOC UsernamNAOMIE Espana Invalid Interpretation CodeSHARE MEDICAL CENTER – [facility]VA POC SubsectionCOAGULATIONOrdered By: Barb Wu on 44-20-5538sNRA Coag (PPP) [Time]35.8 wHrdrfz22.1 - 36.5 second(s)[facility] Auto CoagComment on above:Interpretive Data: Parameter 15 days - 4 weeks 1 - 5 months 6 - 11 months 1 - 5 years 6 - 10 years 11 - 17 years PTT Mean: 35.4 (27.6-45.6) Mean: 33.5 (24.8-40.7) Mean: 32.4 (25.1-40.7) Mean: 31.6 (24.0-39.2) Mean: 31.6 (26.9-38.7) Mean: 31.0 (24.6-38.4) Pediatric Reference ranges were obtained from a study by mary Ledesma al. prepared from 1437 samples obtained at 7 different centers using the same coagulation reagent and instrumentation as [facility]. Currently there are no coagulation studies available worldwide for children to 14 days, andno normal ranges. Heparin therapeutic range (represented by Anti-Factor Xa activity of 0.2 - 0.4 U/mL) corresponds to PTT of 56.6 - 109.0 sec.INR Coag (PPP) [Relative time]1.18 {INR}Invalid Interpretation CodeSHARE MEDICAL CENTER – ALVA Auto CoagComment on above:Interpretive Data: INR results are specifically intended to assess patients stabilized on long-term Anticoagulation therapy suggested INR s Less Intensive Anticoagulation 2.0 3.0 Conventional Range 3.0 4.5PT Coag (PPP) [Time]13.2 sHigh9.4 - 12.5 second(s)[facility] Auto CoagComment on above:Interpretive Data: 15 days - 4 weeks 1 - [...] the same coagulation reagent and instrumentation as [facility]. Currently there are no coagulation studies available worldwide for children to 14 days, andno normal ranges.CT Head or Brain w/o Contraston 36-74-5468IL Head or Brain w/o ContrastExam Date/Time: 09/07/2023 14:19 EST Reason for Exam: [...] Guzman MD Transcribed by: CRISTIN Technologist: ELOINA Travis Read 09/07/2023 02:25 pm EST, Ludwin Guzman MD. CT Brain: NO evidence of Acute Intracranial Process.[facility] HospitalCT Abdomen and Pelvison 34-73-1066NZH Abdomen and PelvisExam Date/Time: 09/07/2023 16:10 EST Reason for Exam: [...] Contrast: Isovue 370 Contrast amount in ml's: 100NormalFisher Western Maryland Hospital CenterCT Cheston 53-08-2282NLC ChestExam Date/Time: 09/07/2023 16:10 EST Reason for Exam: [...] Contrast: Isovue 370 Contrast amount in ml's: 100NormalRegency Hospital Cleveland EastCapillary Glucose POCon 89-20-0621Iteaphq [Mass/Vol]250 mg/hSQiqw01-69CzgigyRegency Hospital Cleveland East Comment on above:Result Comment: Notified RN/MDPerformed By: #### [id number] ####[facility] [address] [place] [address] Consent for Treatmenton 77-20-1964Liyxjyg for Treatment [id number]#1.00TIFFNoYony Macedo Medical CenterED Note-Physicianon 17-81-5627PW Note-PhysicianBasic Information Time Seen: Scotty Huggins DO 09/07/2023 [...] reduced. Because of her pain she has noticedher blood pressure has been increasing. She also [...] NIHSS is zero. She is not a TPAcandidate. She is medicated for pain and anxiety and a stroke workup was initiated. CT the brain isnegative per radiologist. With follow-up examination patient is [...] with patient she prefers to go to [facility] she has had previous care there. Patient is started on Zosyn for possible intra- abdominal cholecystitis infection due to choledocholithiasis. I spoke with Dr. Merirtt at [facility],who does accept the patient for transfer. Assessment/Plan [...] MRI Cholangiogram Pancreatography (mrc (more content not included)...Normal [facility] EastComment on above:Result Comment: Electronically Signed By: Chad Ying PA-C\.br\Date and Time Signed: 09/06/2417:11 EST\.br\Electronically Co-Signed By: Jordy Clemente DO\.br\Date and Time Co- Signed: 09/07/23 21:38 EST\.br\Electronically Co-Signed By: Scotty Huggins DO\.br\Date and Time Co-Signed: 09/07/2406:39 ESTFT Blood GasesOrdered By: Ludwin Bermudez on 68-14-1370Isjhga TestNot Applicable (09/07/23 4:48 PM)NormalSH[facility] MEDICAL [facility]ENTER [facility]VA Resp Auto SSDrawn byLABInvalid Interpretation Code FT Resp Auto SSFIO2 BG21 1Invalid Interpretation CodeFT Resp Auto SSpCO2 Rick 38.1 mm[Hg]Phuggv43.0 - 50.0 mmHgFT Resp Auto SSpH (Bld)7.395 [pH]Normal7.320 - 7.430FT Resp Auto SSSample SiteOTHER (09/07/23 4:48 PM)NormalFTMC Resp Auto SSSample TypeVenous Draw (09/07/23 4:48 PM)NormalFTMC Resp Auto SSHEMATOLOGYOrdered By: SYSTEM SYSTEM on 74-13-4433Vrkdwdocf/100 WBC (Bld)0.8 %Normal0.0 - 2.0 %Remisol Heme Basophils/Leukocytes Auto (Bld) [Pure # fraction]0.1 E9/LNormal0.0 - 0.2 E9/L Remisol HemeEosinophils (Bld) [#/Vol]0.0 E9/LNormal0.0 - 0.5 E9/LRemisol Heme Eosinophils/100 WBC (Bld)0.0 %Normal0.0 - 8.0 %Remisol HemeErythrocyte distribution width (RBC) [Ratio]13.3 %Hhdrxy26.9 - 14.2 %Remisol HemeHematocrit (Bld) [Volume fraction]49.2 %High34.0 - 46.0 %Remisol HemeHemoglobin (Bld) [Mass/Vol]17.2 g/xNCeyk05.0 - 16.0 gm/dLRemisol HemeLymphocytes (Bld) [#/Vol]1.5 E9/LNormal1.0 - 4.0 E9/LRemisol HemeLymphocytes/100 WBC (Bld)8.9 %Low14.0 - 50.0 %Remisol HemeMCH (RBC) [Entitic mass]29.0 ilZlfrse55.0 - 34.0 pgRemisol HemeMCHC (RBC) [Mass/Vol]34.9 g/xHAsjdub84.4 - 36.0 gm/dLRemisol HemeMCV (RBC) [Entitic vol]83.1 yHEmnjji35.0 - 100.0 fLRemisol HemeMonocytes (Bld) [#/Vol]0.6 E9/LNormal0.2 - 1.0 E9/LRemisol HemeMonocytes/100 WBC (Bld)3.4 %Low4.0 - 14.0 % Remisol HemeNeutrophils (Bld) [#/Vol]14.8 E9/LHigh2.0 - 7.5 E9/LRemisol Heme Neutrophils/100 WBC (Bld)86.9 %High36.0 - 75.0 %Remisol HemePlatelet mean volume (Bld) [Entitic vol]8.8 fLNormal6.4 - 10.8 fLRemisol HemePlatelets (Bld) [#/Vol] 191.0 E9/KRzzmyr077.0 - 500.0 E9/LRemisol HemeRBC (Bld) [#/Vol]5.9 E12/LNormal 4.3 - 5.9 E12/LRemisol HemeWBC corrected for nucl RBC Auto (Bld) [#/Vol]17.0 E9/LHigh4.0 - 11.0 E9/LRemisol HemeHep Func Panelon 93-41-2924Gkuygbi [Mass/Vol] 4.8 g/dLNormal3.3-5.0[facility] EastComment on above:Performed By: #### 0328936, 4413071, 84205177 ####[address] [address]Qhloszl/Globulin (S) [Mass conc ratio]2.0Normal 1.1-2.2FAvita Health System Galion HospitalComment on above:Performed By: #### 2644842, 7938602, 74684754 ####[address] [address]SAS [Catalytic activity/Vol]73 Int._Unit/SQkgbqs71-60OgwbozRegency Hospital Cleveland EastComment on above:Performed By: #### 7165557, 5790794, 65098438 ####[address] [address]JQL No additional P-5'-P [Catalytic activity/Vol]11 Int._Unit/LNormal6-46 [facility] EastComment on above:Performed By: #### 9603163, 6934042, 87197656 ####[address] [address]KOL [Catalytic activity/Vol]18 Int._Unit/LNormal5-43[facility] EastComment on above:Performed By: #### 0623586, 9988087, 56360766 ####[facility] [address] [place] [address]Ftjjllflu [Mass/Vol]1.8 mg/dLHigh0.0-1.1FAvita Health System Galion HospitalComment on above: Performed By: #### 1719732, 5749738, 06110746 ####[address] [address]Uelpjaokn.direct [Mass/Vol]0.3 mg/dL Normal0.0-0.4FAvita Health System Galion HospitalComment on above:Performed By: #### 9084047, 9083896, 53164368 ####[address] [address]Jzlvilvyg.indirect [Mass or moles/Vol]1.5 mg/dLHigh 0.1-0.9[facility] Cleveland EastComment on above:Performed By: #### 3952441, 1558991, 75866066 ####[address] [address]Fakpeden (S) [Mass/Vol]2.4 g/dLNormal1.4-4.0[facility] EastComment on above:Performed By: #### 7930428, 8403500, 30458331 ####[address] [address] Protein [Mass/Vol]7.2 g/dLNormal6.0-7.8[facility] EastComment on above:Performed By: #### 4852773, 1705376, 73839952 ####[address] [address]Sdwmru Levelon 09-07-2023 Lipase [Catalytic activity/Vol]15 U/BFshhic96-16PyogilRegency Hospital Cleveland East Comment on above:Performed By: #### 4203262, 3232870, 23460970 ####[address] [address]THY Cholangiogram Pancreatography (mrcp)on 88-03-1776ONY Cholangiogram Pancreatography (mrcp)Exam Date/Time: 09/07/2023 18:46 EST Reason for Exam: [...] Harman Forman MD Transcribed by: CRISTIN Technologist: PietroRegency Hospital Cleveland EastMonitor Recordon 57-27-5430Colxxgx Record [id number]#1.00TIFFNormalRegency Hospital Cleveland EastPT & PTTon 86-80-7679mRQQ Coag (PPP) [Time]35.8 second(s)Ttvpgs34.1-36.5 [facility] EastComment on above:Result Comment: Parameter 15 days - 4 weeks 1 - [...] the same coagulation reagent and instrumentation as [facility]. Currently there are no coagulation studies available worldwide for children to 14 days, andno normal ranges. Heparin therapeutic range (represented by Anti-Factor Xa activity of 0.2 - 0.4 U/mL) corresponds to PTT of 56.6 - 109.0 sec.Performed By: #### 40036116, 6962848, 0895351, 70912696, 489069350, 22312700, 41287260 ####[facility] [address] [place], [place] [address]HBA Coag (PPP) [Relative time]1.18 {INR}Invalid Interpretation CodeRegency Hospital Cleveland East Comment on above:Result Comment: INR results are specifically intended to assess patients stabilized on long-term Anticoagulation therapy suggested INR?s ?Less Intensive Anticoagulation? 2.0 ? 3.0 Conventional Range 3.0 ? 4.5Performed By: #### 36453004, 6493111, 0964947, 33273685, 199776544, 71485141, 22542246 ####[facility] [address] [place], [place] [address]PR Coag (PPP) [Time]13.2 second(s) High9.4-12.5FAvita Health System Galion HospitalComment on above:Result Comment: 15 days - 4 weeks 1 - [...] the same coagulation reagent and instrumentation as [facility]. Currently there are no coagulation studies available worldwide for children to 14 days, andno normal ranges.Performed By: #### 17379833, 9718386, 6194125, 49621236, 723758651, 32986682, 03054108 ####[facility] [address] [place], [place] [address]Xfr-Tcwoxod Noteon 20-50-1862Peo-Arrival NotePre- Arrival Summary Name: , ncdre Current Date: 09/07/2023 13:55:18 EST Gender: Female Date of : Age: 63 Pre-Arrival Type: EMS ETA: 09/07/2023 14:12:00 EST Primary Care Physician: Presenting Problem: R arm pain/abd pain Pre-Arrival User: Fiorella Cheng RN Referring Source: Location: Completion Date/Time: 09/07/2023 13:42:00 [facility] Emergency Department Pre-Hospital Report Form Vital Signs: Pre-Hospital Report: Treatment in Route: Response to Treatment: Misc. Issues:NormalRegency Hospital Cleveland EastRAD - MRI Screening Formon 35-37-1328LOO - MRI Screening Form [id number]#1.00TIFFNoMercy Health Lorain HospitalRAD - Preliminary Radiology Reporton 25-00-3633TJJ - Preliminary Radiology [id number]#1.00TIFWood County HospitalTroponin 0 Hr.on 31-26-3502Mvwrqwmo204.30 pg/uDDdvcqetp23.10-27.10 [facility] EastComment on above:Result Comment: Critical Result I_TnIHS:134.3 Called to and read back by: SHON DAVIS at: 09/07/2023 14:50:04 by:[id number] The 95% CI (Confidence Interval) PPV (Positive Predictive Value) for myocardial infarction in females is 38 pg/mL, in males 51 pg/mL. The results should be used in conjunction with clinical conditions of myocardial infarction. (Access High Sensitivity Troponin I Instructions For Use, [employer], January 2018)Performed By: #### [id number], 3780956, 7623630, 82985145, 362970699, 07163222, 67310139 ####[facility] [address] [place], [place] [address]Ffuyzbfw 3 Hr.on 09-36-1306Pjcyfarv603.00 pg/mLAbnormal 10.10-27.10[facility] EastComment on above:Result Comment: Critical Result Verified by Previous Result Critical Result I_TnIHS:264.0 Called to and read back by: CANDY WILLS at: 09/07/2023 18:20:37 by:[id number] The 95% CI (Confidence Interval) PPV (Positive Predictive Value) for myocardial infarction in females is 38 pg/mL, in males 51 pg/mL. The results should be used in conjunction with clinical conditions of myocardial infarction. (Access High Sensitivity Troponin I Instructions For Use, [employer], January 2018)Performed By: #### [id number], [id number], [id number] ####[facility] [address] [place], [place] [address]Olzbdjwm 6 Hr.on 25-03-5915Ntkddjia113.80 pg/fYBjqbhyex25.10-27.10[facility] Comment on above:Result Comment: Critical Result Verified by Previous Result Critical Result I_TnIHS:297.8 Called to and read back by: DR. CLEMENTE at: 09/07/2023 20:11:08 by:[id number] The 95% CI (Confidence Interval) PPV (Positive Predictive Value) for myocardial infarction in females is 38 pg/mL, in males 51 pg/mL. The results should be used in conjunction with clinical conditions of myocardial infarction. (Access High Sensitivity Troponin I Instructions For Use, Dwight Brandie, January 2018)Performed By: #### [id number] ####[facility] [address] [place], [place] [address]rRVBvq 89-94-6933jDYP90 mL/min/1.73 k0Gxtgly>=59[facility] CenterComment on above:Order Comment: Order added by Discern Expert.Performed By: #### [id number], [id number], [id number], [id number], [id number], [id number], [id number] ####[facility] [address] [place], [place] [address]Rhlyhvnxvx - Hematology and Cell countson 42-50-1718DoP3f (Bld) [Mass fraction]6.6 %NOMS HealthcareNo Panel Informationon 88-35-1145JGLK HealthcareALPHA-FETOPROTEINon 08-16-3844KHUTA-FETOPROTEIN<4Normal 0 - 9[facility] at MorrisComment on above:Result Comment: AFP testing is performed by chemiluminescent immunoassay using the Siemens Atellica. Values obtained with different analyte methods cannot be used interchangeably. This test can be used as an adjunct in the diagnosis and monitoring of AFP-producing tumors, including non-seminomatous germ cell tumors and hepatocellular carcinomas.Performed By: #### AFP #### [facility] [address] [place], [place] [address]Hzkug-dtfdpackfkf serumon 14-19-8539OCQ [Mass/Vol]ng/mL0 - 9 SO-Lajtaeekrweeehtf-Wjpcdqef [address] [facility] Work Phone: Comment on above:AFP testing is performed by chemiluminescent immunoassay using the Siemens Atellica. Values obtained with different analyte methods cannot be used interchangeably. This test can be used as an adjunctin the diagnosis and monitoring of AFP-producing tumors, including non-seminomatous germ cell tumors and hepatocellular carcinomas.BILIRUBIN,DIRECT on 56-49-1905Dbujemksv.indirect [Mass/Vol]0.1 mg/dLNormal0.0 - 0.3[facility] at MorrisComment on above:Performed By: #### DBILI #### [address] [id number], Serum Direct - Conjugatedon 03-26-2023 Bilirubin.direct [Mass/Vol]0.1 mg/dL0.0 - 0.9TT-Gjhprfjfzevqsoip-Shkyiqma [address] [facility] Work Phone: COMPREHENSIVE PANELon 94-95-5642Yvjtzro [Mass/Vol]4.1 g/dLNormal3.4 - 5.0[facility] at MorrisComment on above:Performed By: #### CMP #### [address] [id number] [Catalytic activity/Vol]76 U/HXhpquf21 - 136[facility] Hospital at MorrisComment on above:Performed By: #### CMP #### [address] [id number] [Catalytic activity/Vol]9 U/LNormal7 - 45[facility] at MorrisComment on above:Result Comment: Patients treated with Sulfasalazine may generate falsely decreased results for ALT.Performed By: #### CMP #### [address] [id number] gap [Moles/Vol]10 mmol/XIyqkmn43 - 20[facility] MorrisComment on above:Performed By: #### CMP #### [address] [id number] [Catalytic activity/Vol]16 U/LNormal9 - 39[facility] at MorrisComment on above:Performed By: #### CMP #### [address] [id number] [Mass/Vol]0.7 mg/dLNormal0.0 - 1.2[facility] MorrisComment on above:Performed By: #### CMP #### [address] [id number] [Mass/Vol]9.2 mg/dLNormal8.6 - 10.3[facility] at MorrisComment on above:Performed By: #### CMP #### [address] [id number] [Moles/Vol]103 mmol/IKtlhnj62 - 107UH [facility] Name Medical CenterComment on above:Performed By: #### CMP #### [address] [id number] [Mass/Vol]0.65 mg/dLNormal0.50 - 1.05[facility] at MorrisComment on above:Performed By: #### CMP #### [address] [id number] FEMALE>90Normal>90[facility] at MorrisComment on above:Result Comment: CALCULATIONS OF ESTIMATED GFR ARE PERFORMED USING THE 2020 CKD-EPI STUDY REFIT EQUATION WITHOUT THE RACE VARIABLE FOR THE IDMS-TRACEABLE CREATININE METHODS. https://jasn.asnjournals.org/content/early//ASN.2046206990Fgnfatdos By: #### CMP #### [address] [id number] [Mass/Vol]99 mg/fFBrylza42 - 99[facility] at MorrisComment on above:Performed By: #### CMP #### [address] [id number] (Bld) [Moles/Vol]32 mmol/MLnszmr76 - 32[facility] at MorrisComment on above:Performed By: #### CMP #### [address] [id number] [Moles/Vol]4.5 mmol/LNormal3.5 - 5.3[facility] at MorrisComment on above:Performed By: #### CMP #### [address] [id number] [Mass/Vol]6.5 g/dLNormal6.4 - 8.2[facility] at MorrisComment on above:Performed By: #### CMP #### [address] [id number] [Moles/Vol]140 mmol/TJvesjs147 - 145[facility] Hospital at MorrisComment on above:Performed By: #### CMP #### [address] [id number] nitrogen [Mass/Vol]22 mg/dLNormal6 - 23[facility] at MorrisComment on above:Performed By: #### CMP #### [address] [id number] - Chemistry and Chemistry - challengeon 52-13-7513Ngaedqv BCP dye [Mass/Vol]4.1 g/dL3.4 - 5.0 LU-Nmdcdpscqlsdmraq-Cvlrcneu [address] [facility] Work Phone: ALP [Catalytic activity/Vol]76 U/L33 - 136 IE-Ecprwjnsxnuutqko-Gwfmkrhr [address] [facility] Work Phone: ALT With P-5'-P [Catalytic activity/Vol]9 U/L7 - 45 UE-Uyqzrkftblyjairk-Otoiviui [address] [facility] Work Phone: Comment on above:Patients treated with Sulfasalazine may generate falsely decreased results for ALT.Anion gap [Moles/Vol]10 mmol/L10 - 80GU-Bngaqaeoujmemneb-Kuijjxhc [address] [facility] Work Phone: AST With P-5'-P [Catalytic activity/Vol]16 U/L9 - 39 VH-Jbzlfcrpinueoxkf-Tazthvpy [address] [facility] Work Phone: Bilirubin [Mass/Vol]0.7 mg/dL0.0 - 1.2 DL-Mqhqfpkdwfsbqdpr-Kzazhuuo [address] [facility] Work Phone: Calcium [Mass/Vol]9.2 mg/dL8.6 - 10.3 UD-Ikdmtibvbahylxoi-Uyotbici [address] [facility] Work Phone: Chloride [Moles/Vol]103 mmol/L98 - 107 PG-Djpexuihnjonujmn-Zvlpvuct [address] [facility] Work Phone: EX1 [Moles/Vol]32 mmol/L21 - 32 LG-Aakvmnggrlxoqdyb-Mfukztrc [facility] Work Phone: Creatinine [Mass/Vol]0.65 mg/dLSee Below QN-Wcnltlgqsfzbzigj-Hzdpbzmg 2100[facility] Work Phone: [phone] on above:Reference Range: 0.50 - 1.05Glucose [Mass/Vol]99 mg/dL74 - 86QJ-Skbzkmxmghqrspjo-Scydncww 2099[facility] Work Phone: Potassium [Moles/Vol]4.5 mmol/L3.5 - 5.3 IG-Zqysjrgbdetozmtg-Jcstpdfo 2099[facility] Work Phone: Protein [Mass/Vol]6.5 g/dL6.4 - 8.2 IE-Ktnbmpfkknofmsdt-Daydjzyf 2099[facility] Work Phone: Sodium [Moles/Vol]140 mmol/L136 - 145 US-Yjbtlznwnciloveb-Haovubxh [address] [facility] Work Phone: Urea nitrogen [Mass/Vol]22 mg/dL6 - 23 HZ-Eqldbvmwexpeytyu-Mihslzio 2099[facility] Work Phone: [phone] - Coagulationon 97-02-9828HUT Coag (PPP) [Relative time]1.2 {INR}above high threshold0.9 - 1.1 DL-Bhoxtwpfphejwxjh-Hfxiujdk 2099[facility] Work Phone: PT Coag (PPP) [Time]13.3 sabove high threshold9.8 - 12.6GC-Bwwjuuwakuklelfj-Avaxosxg 2100[facility] Work Phone: [phone] on above:Note new reference range as of 12/19/2022 at 10:00am.No Panel Informationon 03-26-2023>90>90 AE-Qsvummpuiyjhdahc-Ugvyzuzj [address] I Work Phone: Comment on above:CALCULATIONS OF ESTIMATED GFR ARE PERFORMED USING THE 2020 CKD-EPI STUDY REFIT EQUATION WITHOUT THERACE VARIABLE FOR THE IDMS-TRACEABLE CREATININE METHODS.https://jasn.asnjournals.org/content/early/ASN.7995539232 PT/INRon 86-13-7801NC Coag (PPP) [Time]13.3 sHigh9.8 - 12.8[facility] Name Medical CenterComment on above:Result Comment: Note new reference range as of 12/19/2022 at 10:00am.Performed By: #### PTINR #### [address] [id number], INR1.2High0.9 - 1.1[facility] Name Medical CenterComment on above:Performed By: #### PTINR #### [address] [id number] 88-80-7103FA LiverNormal [facility] [address] [facility] Work Phone: us LIVERon 95-94-1740YS LIVERMRN: [id number] Patient Name: SOUMYA ABDI STUDY: US LIVER; 03/26/2023 11:56 am INDICATION: HCC SURVEILLANCE Z79.631: Methotrexate, group home, current use K76.0: Fatty (change of) liver, not elsewhere classified K74.60: Cirrhosis. COMPARISON: None. ACCESSION NUMBER(S): [id number] ORDERING CLINICIAN: JUAN F SAVAGE TECHNIQUE: Multiple [...] MACRO: None Electronically signed by: DEVANTE MOTTA MDHeritage Valley Health System Alanine aminotransferase [Enzymatic activity/volume] in Serum or PlasmaOrdered By: Gaetano Torres on 10-27-1564LJF [Catalytic activity/Vol]11 U/L7-52[facility] South CampusAlbumin [Mass/volume] in Serum or Plasma by Bromocresol green (BCG) dye binding methoOrdered By: Gaetano Torres on 22-59-8012Yhiuspe BCG dye [Mass/Vol]4.3 g/dL3.5-5.7FProtestant Deaconess HospitalAlkaline phosphatase [Enzymatic activity/volume] in Serum or PlasmaOrdered By: Gaetano Torres on 07-26-6184MYC [Catalytic activity/Vol]82 U/C61-200TsshxpovjFirelands Regional Medical Center South CampusAspartate aminotransferase [Enzymatic activity/volume] in Serum or PlasmaOrdered By: Gaetano Torres on 05-83-6141OWA [Catalytic activity/Vol]17 U/L 13-39[facility] CampusBasophils Auto (Bld) [#/Vol]Ordered By: Gaetano Torres on 23-60-4131Gsruxdbwu (Bld) [#/Vol]0.1 10*3/uL0.0-0.2FProtestant Deaconess HospitalBasophils/100 WBC Auto (Bld)Ordered By: Gaetano Torres on 58-03-3518Symjrcfyu/100 WBC (Bld)1.2 %.[facility] Bilirubin.direct [Mass/volume] in Serum or PlasmaOrdered By: Gaetano Torres on 73-77-2524Zkabljhwg.direct [Mass/Vol]0.10 mg/dL0.03-0.18FProtestant Deaconess HospitalBilirubin.total [Mass/volume] in Serum or PlasmaOrdered By: Gaetano Torres on 43-71-3823Gkllpkkws [Mass/Vol]0.5 mg/dL0.3-1.0[facility] CampusCreatinine [Mass/volume] in Serum or PlasmaOrdered By: Gaetano Torres on 75-87-0994Hfrywoqdkd [Mass/Vol]0.63 mg/dL0.60-1.20[facility] CampusEosinophils Auto (Bld) [#/Vol]Ordered By: Gaetano Torres on 01-93-1166Ktyaxgyenit (Bld) [#/Vol]0.2 10*3/uL0.0-0.45[facility] CampusEosinophils/100 WBC Auto (Bld)Ordered By: Gaetano Torres on 03-13-2023 Eosinophils/100 WBC (Bld)3.2 %.[facility] CampusErythrocyte distribution width Auto (RBC) [Ratio]Ordered By: Gaetano Torres on 03-13-2023 Erythrocyte distribution width (RBC) [Ratio]14.1 %11.9-15.3FProtestant Deaconess HospitalErythrocyte sedimentation rate by Photometric methodOrdered By: Gaetano Torres on 49-02-9078LBY Photometric method (Bld) [Velocity]13 mm/hr0-29 [facility] CampusGlobulin Calc (S) [Mass/Vol]Ordered By: Gaetano Torres on 68-08-2032Ihsjtsey (S) [Mass/Vol]2.2 g/dLFirelands Regional Medical Center South CampusHematocrit Auto (Bld) [Volume fraction]Ordered By: Gaetano Torres on 12-30-0185Xrmrmwukhq (Bld) [Volume fraction]40.5 %34.0-46.4FProtestant Deaconess HospitalHemoglobin [Mass/volume] in BloodOrdered By: Gaetano Torres on 36-51-2298Pmjnernipe (Bld) [Mass/Vol]13.5 g/dL11.8-15.4FProtestant Deaconess HospitalLeukocytes [#/volume] corrected for nucleated erythrocytes in Blood by Automated counOrdered By: Gaetano Torres on 64-58-0431ZZJ corrected for nucl RBC Auto (Bld) [#/Vol]4.9 10*3/uL3.8-11.6FProtestant Deaconess Hospital Lymphocytes Auto (Bld) [#/Vol]Ordered By: Gaetano Torres on 03-13-2023 Lymphocytes (Bld) [#/Vol]1.0 10*3/uL1.00-4.8[facility] Lymphocytes/100 WBC Auto (Bld)Ordered By: Gaetano Torres on 03-13-2023 Lymphocytes/100 WBC (Bld)20.3 %.[facility] ShawH Auto (RBC) [Entitic mass]Ordered By: Gaetano Torres on 43-68-3854CKU (RBC) [Entitic mass] 28.7 pg24.7-34.3FProtestant Deaconess HospitalMCHC Auto (RBC) [Mass/Vol] Ordered By: Gaetano Torres on 69-48-7520HMOY (RBC) [Mass/Vol]33.2 g/dL32.0-35.0 [facility] CampusMCV Auto (RBC) [Entitic vol]Ordered By: Gaetano Torres on 84-96-0993JWE (RBC) [Entitic vol]86.3 hT76-120SfsnoawzmFirelands Regional Medical Center South CampusMonocytes Auto (Bld) [#/Vol]Ordered By: Gaetano Torres on 67-58-2461Upoqwruue (Bld) [#/Vol]0.4 10*3/uL0.0-0.8[facility] CampusMonocytes/100 WBC Auto (Bld)Ordered By: Gaetano Torres on 03-13-2023 Monocytes/100 WBC (Bld)8.6 %.[facility] CampusNeutrophils Auto (Bld) [#/Vol]Ordered By: Gaetano Torres on 46-40-9733Oevufosyoqu (Bld) [#/Vol] 3.3 10*3/uL1.8-7.7FProtestant Deaconess HospitalNeutrophils/100 WBC Auto (Bld)Ordered By: Gaetano Torres on 29-46-7067Fbpbthvknew/100 WBC (Bld)66.7 %. [facility] CampusNo Panel InformationOrdered By: Gaetano Torres on 92-10-8559Nohfezoqf GFR (CKD-EPI)> 60.0 mL/MinFirelands Regional Medical Center South CampusPharmacy Creatinine Clearance (ChemN/AFProtestant Deaconess Hospital Nucleated erythrocytes [Presence] in Blood by Automated countOrdered By: Gaetano Torres on 36-51-4593Uyzanrrok RBC Auto Ql (Bld)0.0 /100{WBC}0-0.5FProtestant Deaconess HospitalPlatelet mean volume Auto (Bld) [Entitic vol]Ordered By: Gaetano Torres on 89-74-0578Zvoosbzc mean volume (Bld) [Entitic vol]9.7 fL 6.3-10.7FProtestant Deaconess HospitalPlatelets Auto (Bld) [#/Vol]Ordered By: Gaetano Torres on 04-01-1974Znejoobny (Bld) [#/Vol]120 10*3/hC398-648DwkuiisxeFirelands Regional Medical Center South CampusProtein [Mass/volume] in Serum or PlasmaOrdered By: Gaetano Torres on 61-68-1934Acldeml [Mass/Vol]6.5 g/dL6.4-8.9[facility] CampusRBC Auto (Bld) [#/Vol]Ordered By: Gaetano Torres on 64-46-1822WKU (Bld) [#/Vol]4.69 10*6/uL3.60-5.00Pro[facility]ant Deaconess Hospitalerum or plasma albumin/globulin mass ratioOrdered By: Gaetano Torres on 03-13-2023 Albumin/Globulin [Mass ratio]2.0 {ratio}[facility] Deaconess Hospitalerum or plasma non-glucuronidated bilirubin measurement (mass/volume)Ordered By: Gaetano Torres on 96-86-0778Zdixzlxwy.indirect [Mass/Vol]0.4 mg/dLFirelands Regional Medical Center South CampusWBC Auto (Bld) [#/Vol]Ordered By: Gaetano Torres on 60-74-7945NVT (Bld) [#/Vol]4.9 10*3/uL3.8-11.6FProtestant Deaconess Hospital Alanine aminotransferase [Enzymatic activity/volume] in Serum or PlasmaOrdered By: Gaetano Torres on 44-56-7689OYV [Catalytic activity/Vol]46 U/L7-52[facility] CampusAlbumin [Mass/volume] in Serum or Plasma by Bromocresol green (BCG) dye binding methoOrdered By: Gaetano Torres on 32-56-3324Kskffeb BCG dye [Mass/Vol]4.5 g/dL3.5-5.7FProtestant Deaconess HospitalAlkaline phosphatase [Enzymatic activity/volume] in Serum or PlasmaOrdered By: Gaetano Torres on 07-75-7761YZH [Catalytic activity/Vol]121 U/H13-631NqahsuykxFirelands Regional Medical Center South CampusAspartate aminotransferase [Enzymatic activity/volume] in Serum or PlasmaOrdered By: Gaetano Torres on 18-21-2847RGG [Catalytic activity/Vol]46 U/L 13-39[facility] CampusBasophils Auto (Bld) [#/Vol]Ordered By: Gaetano Torres on 46-12-4205Ywaatpxxy (Bld) [#/Vol]0.1 10*3/uL0.0-0.2FProtestant Deaconess HospitalBasophils/100 WBC Auto (Bld)Ordered By: Gaetano Torres on 01-32-6663Pvxameanc/100 WBC (Bld)1.0 %.[facility] Bilirubin.direct [Mass/volume] in Serum or PlasmaOrdered By: Gaetano Torres on 16-23-5790Jlyyluuez.direct [Mass/Vol]0.10 mg/dL0.03-0.18FProtestant Deaconess HospitalBilirubin.total [Mass/volume] in Serum or PlasmaOrdered By: Gaetano Torres on 03-42-5890Dixqrbfil [Mass/Vol]0.7 mg/dL0.3-1.0[facility] CampusCreatinine [Mass/volume] in Serum or PlasmaOrdered By: Gaetano Torres on 78-75-3594Iyonqnkddj [Mass/Vol]0.45 mg/dL0.60-1.20[facility] CampusEosinophils Auto (Bld) [#/Vol]Ordered By: Gaetano Torres on 36-45-6549Qhumehdfejt (Bld) [#/Vol]0.3 10*3/uL0.0-0.45[facility] CampusEosinophils/100 WBC Auto (Bld)Ordered By: Gaetano Torres on 11-07-2022 Eosinophils/100 WBC (Bld)6.5 %.[facility] CampusErythrocyte distribution width Auto (RBC) [Ratio]Ordered By: Gaetano Torres on 11-07-2022 Erythrocyte distribution width (RBC) [Ratio]13.6 %11.9-15.3FProtestant Deaconess HospitalErythrocyte sedimentation rate by Photometric methodOrdered By: Gaetano Torres on 77-98-4874CAA Photometric method (Bld) [Velocity]43 mm/hr0-29 [facility] CampusGlobulin Calc (S) [Mass/Vol]Ordered By: Gaetano Torres on 86-58-9746Saxopzcc (S) [Mass/Vol]2.2 g/dLFirelands Regional Medical Center South CampusHematocrit Auto (Bld) [Volume fraction]Ordered By: Gaetano Torres on 64-87-9162Yhmuoqakxn (Bld) [Volume fraction]40.2 %34.0-46.4FProtestant Deaconess HospitalHemoglobin [Mass/volume] in BloodOrdered By: Gaetano Torres on 40-25-9591Evstlefyjc (Bld) [Mass/Vol]13.3 g/dL11.8-15.4FProtestant Deaconess HospitalLeukocytes [#/volume] corrected for nucleated erythrocytes in Blood by Automated counOrdered By: Gaetano Torres on 15-65-6760PTG corrected for nucl RBC Auto (Bld) [#/Vol]5.2 10*3/uL3.8-11.6FProtestant Deaconess Hospital Lymphocytes Auto (Bld) [#/Vol]Ordered By: Gaetano Torres on 11-07-2022 Lymphocytes (Bld) [#/Vol]0.9 10*3/uL1.00-4.8[facility] Lymphocytes/100 WBC Auto (Bld)Ordered By: Gaetano Torres on 11-07-2022 Lymphocytes/100 WBC (Bld)16.8 %.[facility] South CampusMCH Auto (RBC) [Entitic mass]Ordered By: Gaetano Torres on 81-25-2571AUN (RBC) [Entitic mass] 28.6 pg24.7-34.3FProtestant Deaconess HospitalMCHC Auto (RBC) [Mass/Vol] Ordered By: Gaetano Torres on 81-45-1586XBTE (RBC) [Mass/Vol]33.0 g/dL32.0-35.0 [facility] CampusMCV Auto (RBC) [Entitic vol]Ordered By: Gaetano Torres on 00-81-0492NSR (RBC) [Entitic vol]86.6 gJ67-123SqpjpsudrFirelands Regional Medical Center South CampusMonocytes Auto (Bld) [#/Vol]Ordered By: Gaetano Torres on 01-84-6391Rjeegkdjj (Bld) [#/Vol]0.5 10*3/uL0.0-0.8[facility] CampusMonocytes/100 WBC Auto (Bld)Ordered By: Gaetano Torres on 11-07-2022 Monocytes/100 WBC (Bld)8.9 %.[facility] South CampusNeutrophils Auto (Bld) [#/Vol]Ordered By: Gaetano Torres on 76-60-0411Gamwbwhalzg (Bld) [#/Vol] 3.5 10*3/uL1.8-7.7FProtestant Deaconess HospitalNeutrophils/100 WBC Auto (Bld)Ordered By: Gaetano Torres on 22-79-1830Ovbaumrtnou/100 WBC (Bld)66.8 %. [facility] CampusNo Panel InformationOrdered By: Gaetano Torres on 03-65-3492Pdhfjuehz GFR (CKD-EPI)> 60.0 mL/MinFirelands Regional Medical Center South CampusPharmacy Creatinine Clearance (ChemN/[facility] Nucleated erythrocytes [Presence] in Blood by Automated countOrdered By: Gaetano Torres on 49-55-2122Aualwwptq RBC Auto Ql (Bld)0.1 /100{WBC}0-0.5FProtestant Deaconess HospitalPlatelet mean volume Auto (Bld) [Entitic vol]Ordered By: Gaetano Torres on 99-35-8044Jqqeaoov mean volume (Bld) [Entitic vol]9.1 fL 6.3-10.7FProtestant Deaconess HospitalPlatelets Auto (Bld) [#/Vol]Ordered By: Gaetano Torres on 84-76-2861Qtopytowe (Bld) [#/Vol]127 10*3/xL794-600XcshbwnctFirelands Regional Medical Center South CampusProtein [Mass/volume] in Serum or PlasmaOrdered By: Gaetano Torres on 09-55-3605Oaozsjf [Mass/Vol]6.7 g/dL6.4-8.9[facility] South CampusRBC Auto (Bld) [#/Vol]Ordered By: Gaetano Torres on 31-98-3233LHY (Bld) [#/Vol]4.64 10*6/uL3.60-5.00Pro[facility]aconess Hospitalerum or plasma albumin/globulin mass ratioOrdered By: Gaetano Torres on 11-07-2022 Albumin/Globulin [Mass ratio]2.0 {ratio}[facility]acon[facility] Hospitalerum or plasma non-glucuronidated bilirubin measurement (mass/volume)Ordered By: Gaetano Torres on 46-34-2065Bvhoxgcly.indirect [Mass/Vol]0.6 mg/dLFirelands Regional Medical Center South CampusWBC Auto (Bld) [#/Vol]Ordered By: Gaetano Torres on 20-02-8909EDY (Bld) [#/Vol]5.2 10*3/uL3.8-11.6FProtestant Deaconess Hospital BNPon 35-28-8323Gtxfyvnxdrw peptide B (Bld) [Mass/Vol]01073.0 pg/mLCritically high<=900.0The [facility] HospitalComment on above:Performed By: #### POCGLUC #### [facility] [address] [address] [address] Jd Edward ABD/PELV W CONon 75-97-6726UO ABD/PELV W CONEXAMINATION: CT ABD/PELV W CON HISTORY: GENERALIZED ABDOMINAL PAIN COMPARISON: [...] Electronically authenticated by: CHEVY JONAS Date: 2022-09-29 00:29[facility] CHEST WO W CONon 96-97-1411EEV CHEST WO W CONEXAMINATION: CTA CHEST WO W CON HISTORY: Pulmonary embolism COMPARISON: [...] Electronically authenticated by: CHEVY JONAS Date: 2022-09-29 00:23NormCleveland Clinic Children's Hospital for RehabilitationLACTATE/LACTIC ACIDon 54-11-3360Fdrjvgh [Moles/Vol]2.5 mmol/L Critically high0.4-2.0The [facility] HospitalComment on above:Performed By: #### DDIM #### [facility] [address] [address] [address] Jd Gallegos, HIGH SENSITIVITYon 90-57-9059NMSSCI3156.2 pg/mL Critically high4.0-51.3The [facility] Community HospitalComment on above:Result Comment: CUT-OFF POINTS HAVE BEEN ESTABLISHED BASED ON THE FOURTH UNIVERSAL DEFINITIONS OF MYOCARDIAL INFARCTION. THE UPPER REFERENCE LIMIT (URL) OF TROPONIN, DEFINED THE 99TH PERCENTILE OF cTnI DISTRIBUTION IN A REFERENCE POPULATION, HAS BEEN CONFIRMED THE DECISION THRESHOLD FOR IA DIAGNOSIS.Performed By: #### DDIM #### [facility] [address] [address] [address] Jd HumphreyXR CHEST 1 Von 02-45-5709IT CHEST 1 VEXAM: Chest x-ray HISTORY: . NAUSEA WITH VOMITING, UNSPECIFIED . COMPARISON: 03/21/2021 TECHNIQUE: Single view of the chest FINDINGS: Heart and vascularity are unremarkable. IMPRESSION: Bibasilar atelectasis versus early infiltrates. No consolidation. Electronically authenticated by: TAMIKO NUNES Date: 2022-09-28 22:20NormalThe [facility] AUTO DIFFon 82-36-0532JKUA #0.0 103/ulNormal0.0-0.1The [facility] HospitalComment on above:Performed By: #### CVDTBH #### [facility] [address] [place] [address] Dr. Jd HumphreyBasophils/100 WBC (Bld)0.2 %Normal0.2-2.0[facility] Comment on above:Performed By: #### CVDTBH #### [facility] [address] [place] [address] Dr. Jd Rodriguez #0.1 103/ulNormal0.0-0.7The [facility] Community HospitalComment on above: Performed By: #### CVDTBH #### [facility] [address] [place] [address] Dr. Jd Diggsosinophils/100 WBC (Bld)0.8 %Critically low0.9-7.0The [facility] Community HospitalComment on above:Performed By: #### CVDTBH #### [facility] [address] [place] [address] Dr. Jd Diggsrythrocyte distribution width (RBC) [Ratio]12.6 %Iicdbh09.0-15.0 [facility] CenterComment on above:Performed By: #### CVDTBH #### [facility] [address] [place] [address] Dr. Jd HumphreyHematocrit (Bld) [Volume fraction]50.7 %Critically high36.0-48.0 [facility] CenterComment on above:Performed By: #### CVDTBH #### [facility] [address] [place] [address] Dr. Jd HumphreyHemoglobin (Bld) [Mass/Vol]18.2 g/dLCritically high12.0-16.0[facility] HospitalComment on above:Performed By: #### CVDTBH #### [facility] [address] [place] [address] Dr. Jd Lester #0.06 10e3/ulCritically high0.00-0.03[facility] Comment on above:Performed By: #### CVDTBH #### [facility] [address] [place] [address] Dr. Jd Lester %0.5 %Normal0.0-0.5[facility] HospitalComment on above: Performed By: #### CVDTBH #### [facility] [address] [place] [address] Dr. Jd Carson #1.0 103/ulCritically low1.2-3.8[facility] Comment on above:Performed By: #### CVDTBH #### [facility] [address] [place] [address] Dr. Jd Carsonhocytes/100 WBC (Bld)8.1 %Critically low20.5-60.0[facility] HospitalComment on above:Performed By: #### CVDTBH #### [facility] [address] [place] [address] Dr. Jd BeanUAL DIFF REQNONormalThe Knox Community HospitalComment on above: Performed By: #### CVDTBH #### [facility] [address] [place] [address] Dr. dJ Clemons (RBC) [Entitic mass]29.4 wkZfschq39.7-34.0The [facility] HospitalComment on above:Performed By: #### CVDTBH #### [facility] [address] [place] [address] Dr. Jd Clemons (RBC) [Mass/Vol]35.9 g/dLCritically high29.9-35.2The [facility] HospitalComment on above:Performed By: #### CVDTBH #### [facility] [address] [place] [address] Dr. Jd Clemons (RBC) [Entitic vol]82.0 vBOdndpl06.0-99.0The [facility] HospitalComment on above:Performed By: #### CVDTBH #### [facility] [address] [address] [address] Jd Nair #0.5 103/ulNormal0.3-0.8The [facility] HospitalComment on above:Performed By: #### CVDTBH #### [facility] [address] [place] [address] Dr. Jd Parksocytes/100 WBC (Bld)3.6 %Normal1.7-12.0[facility] Comment on above:Performed By: #### CVDTBH #### [facility] [address] [place] [address] Dr. Jd Frausto #10.9 103/ulCritically high1.4-6.5The [facility] Comment on above:Performed By: #### CVDTBH #### [facility] [address] [place] [address] Dr. Jd Wuutrophils/100 WBC (Bld)86.8 %Critically high43.0-75.0The [facility] HospitalComment on above:Performed By: #### CVDTBH #### [facility] [address] [place] [address] Dr. Jd Samuelslet mean volume (Bld) [Entitic vol]11.0 fLNormal9.5-13.5ThClermont County HospitalComment on above:Performed By: #### CVDTBH #### [facility] [address] [place] [address] Dr. Jd HumphreyPLT197 103/gaOhwhei796-969Pzw [facility] HospitalComment on above: Performed By: #### CVDTBH #### [facility] [address] [place] [address] Dr. Jd HumphreyRBC6.18 106/ulCritically high4.20-5.40[facility] Comment on above:Performed By: #### CVDTBH #### [facility] [address] [place] [address] Dr. Jd HumphreyWBC12.5 103/ulCritically high4.0-11.0The [facility] HospitalComment on above:Performed By: #### CVDTBH #### [facility] [address] [place] [address] Dr. Jd SevillaDIMERon 94-23-9785F-DIMER1.38 mg/L FEUCritically high<=0.59[facility] on above:Performed By: #### DDIM #### [facility] [address] [place] [address] Dr. Jd Coffey COMMENTSSEE [facility] on above:Result Comment: Increases in D-Dimer concentration observed with thromboembolic events [...] stress, and generalized hospitalization. Performed By: #### DDIM #### [facility] [address] [place] [address] Dr. Jd HumphreyLACTATE/LACTIC ACIDon 40-88-6669Tpeqcyp [Moles/Vol]3.6 mmol/L Critically high0.4-2.0[facility] on above:Performed By: #### CXWND #### [facility] [address] [place] [address] Dr. Jd HumphreyLIPASEon 65-79-2474Nbhkue [Catalytic activity/Vol]27.0 U/L Critically low73.0-393.0The [facility] on above:Performed By: #### BMP #### [facility] [address] [place] [address] Dr. Jd Ramirez 14(COMP METB)on 04-34-4482Vlgqtoq [Mass/Vol]4.3 g/dLNormal 3.4-5.0The [facility] on above:Performed By: #### BMP #### [facility] [address] [place] [address] Dr. Jd HumphreyAlbumin/Globulin [Mass ratio]1.4 {ratio}NormalThe [facility] Community HospitalComment on above:Performed By: #### BMP #### [facility] [address] [place] [address] Dr. Jd RamonP [Catalytic activity/Vol]82 U/LGtjvyf11-120Jay [facility] HospitalComment on above:Performed By: #### BMP #### [facility] [address] [place] [address] Dr. Jd RamonT [Catalytic activity/Vol]19 U/TSnsmrc74-98Vxc [facility] HospitalComment on above:Performed By: #### BMP #### [facility] [address] [place] [address] Dr. Jd Gillespieon gap [Moles/Vol]14.8 mmol/LNormalThe [facility] Comment on above:Performed By: #### BMP #### [facility] [address] [place] [address] Dr. Jd HumphreyAST [Catalytic activity/Vol]35 U/YTtksrg36-41Zav [facility] HospitalComment on above:Performed By: #### BMP #### [facility] [address] [place] [address] Dr. Jd HumphreyBilirubin [Mass/Vol]0.9 mg/dLNormal0.2-1.0The [facility] Comment on above:Performed By: #### BMP #### [facility] [address] [place] [address] Dr. Jd HumphreyCalcium [Mass/Vol]9.7 mg/dLNormal8.5-10.1The [facility] Comment on above:Performed By: #### BMP #### [facility] [address] [place] [address] Dr. Jd HumphreyChloride [Moles/Vol]102 mmol/PLwwvws45-316Kto [facility] Comment on above:Performed By: #### BMP #### [facility] [address] [place] [address] Dr. Jd HumphreyCO2 [Moles/Vol]25.9 mmol/VCvkjxb43.0-32.0The [facility] Comment on above:Performed By: #### BMP #### [facility] [address] [address] [address] Jd HumphreyCreatinine [Mass/Vol]0.97 mg/dLNormal0.55-1.02[facility] CenterComment on above:Performed By: #### BMP #### [facility] [address] [address] [address] Jd DiggsGFR-AF FILIPINO>60Normal>=60The [facility] Community HospitalComment on above:Performed By: #### BMP #### [facility] [address] [address] [address] Jd DiggsGFR-NON AF XLWDRBEN96 mL/min/1.10e4Wvyzpwmopa low>=60The [facility] Community HospitalComment on above:Performed By: #### BMP #### [facility] [address] [address] [address] Jd HumphreyGlobulin (S) [Mass/Vol]3.1 g/dLNormalThe [facility] Community HospitalComment on above:Performed By: #### BMP #### [facility] [address] [address] [address] Jd HumphreyGlucose [Mass/Vol]235 mg/dLCritically njvj19-596Mva [facility] HospitalComment on above:Performed By: #### BMP #### [facility] [address] [address] [address] Jd HumphreyPotassium [Moles/Vol]3.7 mmol/LNormal3.5-5.1The [facility] Comment on above:Performed By: #### BMP #### [facility] [address] [address] [address] Jd HumphreyProtein [Mass/Vol]7.4 g/dLNormal6.4-8.2The [facility] Comment on above:Performed By: #### BMP #### [facility] [address] [address] [address] Jd HumphreySodium [Moles/Vol]139 mmol/GVfxeay761-846Tkl [facility] Comment on above:Performed By: #### BMP #### [facility] [address] [place] [address] Dr. Jd Yeager nitrogen [Mass/Vol]19.0 mg/dLCritically high7.0-18.0The [facility] HospitalComment on above:Performed By: #### BMP #### [facility] [address] [place] [address] Dr. Jd Yeager nitrogen/Creatinine [Mass ratio]19.6 mg/mgNormCleveland Clinic Children's Hospital for RehabilitationComment on above:Performed By: #### BMP #### [facility] [address] [place] [address] Dr. Jd HumphreyPROTIMEon 63-13-2404IHZ Coag (PPP) [Relative time]1.17 {INR} NormalThe [facility] Community HospitalComment on above:Performed By: #### CVDTBH #### [facility] [address] [place] [address] Dr. Jd Gill GUIDELINESSEE BELOWCleveland Clinic Akron GeneralComment on above:Result Comment: DESIRED INR: 2.0 - 3.0 CONDITIONS NOT LISTED BELOW 2.5 - 3.5 FOR PROSTHETIC HEART VALVE REPLACEMENT 2.5 - 3.5 RECURRENT THROMBOSIS Performed By: #### CVDTBH #### [facility] [address] [place] [address] Dr. Jd HumphreyPT Coag (PPP) [Time]12.3 sCritically high9.0-11.6The [facility] Community HospitalComment on above:Performed By: #### CVDTBH #### [facility] [address] [place] [address] Dr. Jd HumphreyPTGavin 09-65-4267vVAH Coag (Bld) [Time]28.0 pNwyzew61.3-36.2The [facility] HospitalComment on above:Performed By: #### CVDTBH #### [facility] [address] [place] [address] Dr. Jd HumphreyRESPIRATORY PANEL PLUSon 05-27-4684DlxjavneczDlx detectedNormal NOT DETECTEDThe [facility] Community HospitalComment on above:Performed By: #### CXWND #### [facility] [address] [address] [address] Jd Henriquez ParapertusisNot detectedNormalNOT DETECTEDThe [facility] HospitalComment on above:Performed By: #### CXWND #### [facility] [address] [address] [address] Jd Henriquez PertussisNot detectedNormalNOT DETECTEDThe [facility] Comment on above:Performed By: #### CXWND #### [facility] [address] [address] [address] Jd HumphreyChlamydia PneumoniaeNot detectedNormalNOT DETECTEDThe [facility] HospitalComment on above:Performed By: #### CXWND #### [facility] [address] [address] [address] Jd HumphreyCoronavirus 229ENot detectedNormalNOT DETECTEDThe [facility] HospitalComment on above:Performed By: #### CXWND #### [facility] [address] [address] [address] Jd HumphreyCoronavirus FJG3Mgz detectedNormalNOT DETECTEDThe [facility] HospitalComment on above:Performed By: #### CXWND #### [facility] [address] [address] [address] Jd HumphreyCoronavirus XS32Ekn detectedNormalNOT DETECTEDThe [facility] HospitalCompine rest [facility] on above:Performed By: #### CXWND #### [facility] [address] [address] [address] Jd HumphreyCoronavirus YF43Gme detectedNormalNOT DETECTEDThe [facility] HospitalComment on above:Performed By: #### CXWND #### [facility] [address] [address] [address] Jd Carlos H1Not detectedNormalNOT DETECTEDThe [facility] Comment on above:Performed By: #### CXWND #### [facility] [address] [address] [address] Yilan ChangInfluenza A H1 2009Not detectedNormalNOT DETECTEDThe [facility] HospitalComment on above:Performed By: #### CXWND #### [facility] [address] [address] [address] Jd Gilmore A H3Not detectedNormalNOT DETECTEDThe [facility] Comment on above:Performed By: #### CXWND #### [facility] [address] [address] [address] Jd Gilmore BNot detectedNormalNOT DETECTEDThe [facility] Comment on above:Performed By: #### CXWND #### [facility] [address] [address] [address] Jd GomezneumovirusNot detectedNormalNOT DETECTEDThe [facility] HospitalComp[facility] on above:Performed By: #### CXWND #### [facility] [address] [address] [address] Jd Richardson. PneumoniaeNot detectedNormalNOT DETECTEDThe [facility] HospitalComment on above:Performed By: #### CXWND #### [facility] [address] [address] [address] Jd Gramajo 1Not detectedNormalNOT DETECTEDThe [facility] HospitalComp[facility] rest [facility] on above:Performed By: #### CXWND #### [facility] [address] [address] [address] Jd Gramajo 2Not detectedNormalNOT DETECTEDThe [facility] HospitalComp[facility] on above:Performed By: #### CXWND #### [facility] [address] [address] [address] Jd Gramajo 3Not detectedNormalNOT DETECTEDThe [facility] HospitalComp[facility] on above:Performed By: #### CXWND #### [facility] [address] [address] [address] Jd Gramajo 4Not detectedNormalNOT DETECTEDThe [facility] HospitalComp[facility] on above:Performed By: #### CXWND #### [facility] [address] [place] [address] Dr. Jd HumphreyRhino/EnterovirusNot detectedNormalNOT DETECTEDThe [facility] HospitalComment on above:Performed By: #### CXWND #### [facility] [address] [place] [address] Dr. Jd Wisdom Header 1RESPIRATORY PANEL: VIRUSESCleveland Clinic [facility] General Comment on above:Performed By: #### CXWND #### [facility] [address] [place] [address] Dr. Jd Wisdom Header 2RESPIRATORY PANEL: BACTERIACleveland Clinic Akron GeneralComment on above:Performed By: #### CXWND #### [facility] [address] [place] [address] Dr. Jd KatNot detectedNormalNOT DETECTEDThe [facility] HospitalComment on above:Performed By: #### CXWND #### [facility] [address] [place] [address] Dr. Jd Jones-CoV-2 (COVID-19) RNA SHEILA+probe Ql (Unsp spec)Not detected NormalNOT DETECTEDThe [facility] Community HospitalComment on above:Performed By: #### CXWND #### [facility] [address] [place] [address] Dr. Jd Gallegos, HIGH SENSITIVITYon 56-88-6319QUDHAU2109.3 pg/mL Critically high4.0-51.3The [facility] Community HospitalComment on above:Result Comment: CUT-OFF POINTS HAVE BEEN ESTABLISHED BASED ON THE FOURTH UNIVERSAL DEFINITIONS OF MYOCARDIAL INFARCTION. THE UPPER REFERENCE LIMIT (URL) OF TROPONIN, DEFINED THE 99TH PERCENTILE OF cTnI DISTRIBUTION IN A REFERENCE POPULATION, HAS BEEN CONFIRMED THE DECISION THRESHOLD FOR IA DIAGNOSIS.Performed By: #### BMP #### [facility] [address] [place] [address] Dr. Jd HumphreyVC CONSULT FOLLOWUPon 77-87-6007VS CONSULT FOLLOWUPPatient: SOUMYA ABDI Exam Date: 09/01/2022 : 1960 Gender:F Ordering : DR TAMIKO BYNUM M.D. Admission #: [id number] Family : Order #: [id number] CLICK HERE TO VIEW EXAM RADIOLOGY REPORT [...] by: Tamiko Bynum MD on 09/01/2022 at 13:38[facility] GeneralVC EXT VENOUS RT LIMITEDon [id number] EXT VENOUS RT LIMITEDPatient: SOUMYA ABDI Exam Date: 09/01/2022 : 1960 Gender:F Ordering : DR TAMIKO BYNUM M.D. Admission #: [id number] Family : Order #: [id number] CLICK HERE TO VIEW EXAM RADIOLOGY REPORT [...] by: Tamiko Bynum MD on 09/01/2022 at 13:24[facility] GeneralVC ENDOVENOUS ABL 1ST V RTon [id number] ENDOVENOUS ABL 1ST V RTPatient: SOUMYA ABDI Exam Date: 08/25/2022 : 1960 Gender:F Ordering : DR TAMIKO BYNUM M.D. Admission #: [id number] Family : Order #: [id number] CLICK HERE TO VIEW EXAM RADIOLOGY REPORT [...] by: Diaz Montemayor M.D. on 08/25/2022 at 14:22[facility] GeneralVC COMP CONSULTATIONon [id number] COMP CONSULTATIONPatient: SOUMYA ABDI Exam Date: 08/07/2022 : 1960 Gender:F Ordering : JUANA MORA . 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 Micro foam chemical ablation right [...] by: Tamiko Bynum MD on 08/07/2022 at 14:51[facility] GeneralVC VENOUS REFLUX DONN LMTon [id number] VENOUS REFLUX DONN LMTPatient: SOUMYA ABDI Exam Date: 08/07/2022 : 1960 Gender:F Ordering : JUANA MORA . Admission #: [id number] Family : Order #: [id number] CLICK HERE TO VIEW EXAM RADIOLOGY REPORT [...] None. Compressibility: Normal. Flow: Deep venous reflux. Blender Helper: Mid medial lower leg 4.3 mm with [...] by: Tamiko Bynum MD on 08/07/2022 at 13:46NormalThSalem [facility] AUTO DIFFon 55-58-5612XKSC #0.0 103/ulNormal0.0-0.1The [facility] HospitalComment on above:Performed By: #### CBC #### [facility] [address] [place] [address] Dr. Jd HumphreyBasophils/100 WBC (Bld)0.6 %Normal0.2-2.0The [facility] Comment on above:Performed By: #### CBC #### [facility] [address] [place] [address] Dr. Jd Rodriguez #0.2 103/ulNormal0.0-0.7The [facility] HospitalComment on above: Performed By: #### CBC #### [facility] [address] [place] [address] Dr. Jd Diggsosinophils/100 WBC (Bld)3.3 %Normal0.9-7.0[facility] Comment on above:Performed By: #### CBC #### [facility] [address] [place] [address] Dr. Jd Diggsrythrocyte distribution width (RBC) [Ratio]12.9 %Bpzlxe45.0-15.0 The [facility] HospitalComment on above:Performed By: #### CBC #### [facility] [address] [place] [address] Dr. Jd HumphreyHematocrit (Bld) [Volume fraction]41.4 %Iiigyr78.0-48.0The [facility] Community HospitalComment on above:Performed By: #### CBC #### [facility] [address] [place] [address] Dr. Jd HumphreyHemoglobin (Bld) [Mass/Vol]14.2 g/pNXmqdzq55.0-16.0The [facility] HospitalComment on above:Performed By: #### CBC #### [facility] [address] [place] [address] Dr. Jd Lester #0.02 10e3/ulNormal0.00-0.03The [facility] HospitalComment on above:Performed By: #### CBC #### [facility] [address] [place] [address] Dr. Jd Lester %0.4 %Normal0.0-0.5The [facility] HospitalComment on above: Performed By: #### CBC #### [facility] [address] [place] [address] Dr. Jd Parrish #0.9 103/ulCritically low1.2-3.8[facility] Comment on above:Performed By: #### CBC #### [facility] [address] [place] [address] Dr. Jd Carsonhocytes/100 WBC (Bld)17.0 %Critically low20.5-60.0The [facility] HospitalComment on above:Performed By: #### CBC #### [facility] [address] [place] [address] Dr. Jd BeanUAL DIFF REQNONormalThe [facility] Community HospitalComment on above: Performed By: #### CBC #### [facility] [address] [place] [address] Dr. Jd Jewell (RBC) [Entitic mass]29.3 diUvdkbc10.7-34.0The [facility] HospitalComment on above:Performed By: #### CBC #### [facility] [address] [place] [address] Dr. Jd Clemons (RBC) [Mass/Vol]34.3 g/zIWkdnbu24.9-35.2The [facility] HospitalComment on above:Performed By: #### CBC #### [facility] [address] [place] [address] Dr. Jd Clemons (RBC) [Entitic vol]85.5 fYItffvi63.0-99.0The [facility] HospitalComment on above:Performed By: #### CBC #### [facility] [address] [place] [address] Dr. Jd Nair #0.4 103/ulNormal0.3-0.8The [facility] HospitalComment on above:Performed By: #### CBC #### [facility] [address] [place] [address] Dr. Jd Parksocytes/100 WBC (Bld)7.7 %Normal1.7-12.0[facility] Comment on above:Performed By: #### CBC #### [facility] [address] [place] [address] Dr. Jd Frausto #3.7 103/ulNormal1.4-6.5The [facility] HospitalComment on above:Performed By: #### CBC #### [facility] [address] [place] [address] Dr. Jd Wuutrophils/100 WBC (Bld)71.0 %Ygkvht36.0-75.0The [facility] HospitalComment on above:Performed By: #### CBC #### [facility] [address] [place] [address] Dr. Jd Samuelslet mean volume (Bld) [Entitic vol]11.1 fLNormal9.5-13.5The [facility] HospitalComment on above:Performed By: #### CBC #### [facility] [address] [place] [address] Dr. Jd HumphreyPLT125 103/ulCritically sgi672-348Sir [facility] HospitalComment on above:Performed By: #### CBC #### [facility] [address] [place] [address] Dr. Jd HumphreyRBC4.84 106/ulNormal4.20-5.40The [facility] HospitalComment on above:Performed By: #### CBC #### [facility] [address] [place] [address] Dr. Jd HumphreyWBC5.2 103/ulNormal4.0-11.0The [facility] HospitalComment on above: Performed By: #### CBC #### [facility] [address] [place] [address] Dr. Jd FosterINEon 24-76-6167Rsttfxzvhg [Mass/Vol]0.53 mg/dLCritically low0.55-1.02The [facility] Hospitalment on above:Performed By: #### BMP #### [facility] [address] [place] [address] Dr. Miles ChangEGFR-AF FILIPINO>60Normal>=60The [facility] HospitalComment on above:Performed By: #### BMP #### [facility] [address] [place] [address] Dr. Jd DiggsGFR-NON AF FILIPINO>60Normal>=60The [facility] Hospitalment on above:Performed By: #### BMP #### [facility] [address] [place] [address] Dr. Jd Arreola PROFILEon 37-93-4469Nbzlpks [Mass/Vol]3.5 g/dLNormal3.4-5.0 The [facility] Hospitalment on above:Performed By: #### BMP #### [facility] [address] [place] [address] Dr. Jd HumphreyAlbumin/Globulin [Mass ratio]1.2 {ratio}NormalThe [facility] on above:Performed By: #### BMP #### [facility] [address] [place] [address] Dr. Jd Tran [Catalytic activity/Vol]88 U/QVxushb42-465Tjn [facility] on above:Performed By: #### BMP #### [facility] [address] [place] [address] Dr. Jd Leyva [Catalytic activity/Vol]25 U/JVbrywr44-52Dir [facility] on above:Performed By: #### BMP #### [facility] [address] [place] [address] Dr. Jd Ray [Catalytic activity/Vol]17 U/MOqdqnl63-15Lro [facility] HospitalComment on above:Performed By: #### BMP #### [facility] [address] [place] [address] Dr. Jd Sandoval, CONJUGATED0.1 mg/dLNormal0.0-0.2[facility] Comment on above:Performed By: #### BMP #### [facility] [address] [place] [address] Dr. Jd Bustosirubin [Mass/Vol]0.4 mg/dLNormal0.2-1.0[facility] Comment on above:Performed By: #### BMP #### [facility] [address] [place] [address] Dr. Jd HumphreyGlobulin (S) [Mass/Vol]3.0 g/dLNormalThe [facility] HospitalComment on above:Performed By: #### BMP #### [facility] [address] [place] [address] Dr. Jd HumphreyProtein [Mass/Vol]6.5 g/dLNormal6.4-8.2[facility] Comment on above:Performed By: #### BMP #### [facility] [address] [place] [address] Dr. Jd HumphreySEVirginie [facility] ISLANDRENon 07-86-3732IPF RATE15 mm/hrNormal<=30[facility] CenterComment on above:Performed By: #### CXWND #### [facility] [address] [place] [address] Dr. Jd HumphreyCULTURE BLOODon 08-66-5838Xiwqailyoal examination of blood, cultureCulture Observations: aerobic bottle positive 07/26/22 Culture Observations: [...] Vancomycin 0.5 S F Tetracycline 2 S FNormalThe [facility] HospitalComment on above:Performed By: #### BMP #### [facility] [address] [place] [address] Dr. Jd HumphreyACETONE SERUMon 55-35-2913QFJUTNZJobhywneUsnnbfSDIELOVDEho Bellevue HospitalComment on above:Performed By: #### POCGLUC #### [facility] [address] [place] [address] Dr. Jd Chang CULTURE ID PANELon 07-25-2022. baumanniiNot detectedNormal NOT DETECTEDThe [facility] HospitalComment on above:Performed By: #### CVDTBH #### [facility] [address] [place] [address] Dr. Jd Foy fragilisNot detectedNormalNOT DETECTEDThe [facility] HospitalComment on above:Performed By: #### CVDTBH #### [facility] [address] [place] [address] Dr. Jd Vernon CONTROLSPASSEDCleveland Clinic Akron GeneralComment on above: Performed By: #### CVDTBH #### [facility] [address] [place] [address] Dr. Jd VernonBTHDJOHN CULTURE BOTTLE INFORMATIONCleveland Clinic Akron GeneralComment on above:Performed By: #### CVDTBH #### [facility] [address] [place] [address] Dr. Jd [id number] RESISTANCE GENESCleveland Clinic [facility] General Comment on above:Performed By: #### CVDTBH #### [facility] [address] [place] [address] Dr. Jd VernonHD2SEE BELOWCleveland Clinic Akron GeneralComment on above: Result Comment: Note: Antimicrobial resitance can occur via multiple mechanisms. A Not Detected result for the Film[employer] antomicrobial resistance gene assays does not indicate antimicrobial susceptibility. Subculturing is required for species identification and susceptibility testing of isolates.Performed By: #### CVDTBH #### [facility] [address] [place] [address] Dr. Jd VernonCmyjkSUTUTF3SjopzoldRnmdtsTus [facility] HospitalCompine rest [facility] on above: Performed By: #### CVDTBH #### [facility] [address] [place] [address] Dr. Jd VernonChlavDTZHNZ6SwsrptbcZslfifInc [facility] HospitalComment on above: Performed By: #### CVDTBH #### [facility] [address] [address] [address] Jd MartinezZzgftFDKSYT8UTMDLVzknkuUqd [facility] HospitalComment on above:Performed By: #### CVDTBH #### [facility] [address] [address] [address] Jd Rai Set:Set 1NormalThe [facility] HospitalComment on above: Performed By: #### CVDTBH #### [facility] [address] [address] [address] Jd Rai:AerobicNoCleveland Clinic Marymount HospitalComment on above: Performed By: #### CVDTBH #### [facility] [address] [address] [address] Jd Bender. neoformans/gattiiNot detectedNormalNOT DETECTEDThe [facility] HospitalComment on above:Performed By: #### CVDTBH #### [facility] [address] [address] [address] Jd Rawls albicansNot detectedNormalNOT DETECTEDThe [facility] HospitalComment on above:Performed By: #### CVDTBH #### [facility] [address] [address] [address] Jd Rawls aurisNot detectedNormalNOT DETECTEDThe [facility] Comment on above:Performed By: #### CVDTBH #### [facility] [address] [address] [address] Jd Rawls glabrataNot detectedNormalNOT DETECTEDThe [facility] HospitalComment on above:Performed By: #### CVDTBH #### [facility] [address] [address] [address] Jd Rawls KruseiNot detectedNormalNOT DETECTEDThe [facility] Comment on above:Performed By: #### CVDTBH #### [facility] [address] [address] [address] Yilan ChangCandida ParapsilosisNot detectedNormalNOT DETECTEDThe [facility] HospitalComment on above:Performed By: #### CVDTBH #### [facility] [address] [address] [address] Jd Muirdida TropicalisNot detectedNormalNOT DETECTEDThe [facility] HospitalComment on above:Performed By: #### CVDTBH #### [facility] [address] [address] [address] Jd HumphreyCTX-M Resistant GeneNot ApplicableNormalNOT DETECTEDThe [facility] HospitalComment on above:Performed By: #### CVDTBH #### [facility] [address] [address] [address] Jd Diggs. Cloacae complexNot detectedNormalNOT DETECTEDThe [facility] HospitalComp[facility] on above:Performed By: #### CVDTBH #### [facility] [address] [place] [address] Dr. Jd Diggs. faecalisNot detectedNormalNOT DETECTEDThe [facility] Comment on above:Performed By: #### CVDTBH #### [facility] [address] [place] [address] Dr. Jd Diggs. faeciumNot detectedNormalNOT DETECTEDThe [facility] Comment on above:Performed By: #### CVDTBH #### [facility] [address] [place] [address] Dr. Jd DiggsnterobacteriaceaeNot detectedNormalNOT DETECTEDThe [facility] HospitalComment on above:Performed By: #### CVDTBH #### [facility] [address] [address] [address] Jd Ricocherichia coliNot detectedNormalNOT DETECTEDThe [facility] HospitalComment on above:Performed By: #### CVDTBH #### [facility] [address] [address] [address] Jd Lewis. influenzaeNot detectedNormalNOT DETECTEDThe [facility] Comment on above:Performed By: #### CVDTBH #### [facility] [address] [address] [address] Jd Sierra Resistant GeneNot ApplicableNormalNOT DETECTEDThe [facility] HospitalComment on above:Performed By: #### CVDTBH #### [facility] [address] [address] [address] Jd Powers. oxytocaNot detectedNormalNOT DETECTEDThe [facility] Comment on above:Performed By: #### CVDTBH #### [facility] [address] [address] [address] Jd Powers. pneumoniaeNot detectedNormalNOT DETECTEDThe [facility] Comment on above:Performed By: #### CVDTBH #### [facility] [address] [address] [address] Jd Arnettebasiyaella aerogenesNot detectedNormalNOT DETECTEDThe [facility] HospitalComment on above:Performed By: #### CVDTBH #### [facility] [address] [place] [address] Dr. Jd HumphreyKPC Resistant GeneNot ApplicableNormalNOT DETECTEDThe [facility] HospitalComment on above:Performed By: #### CVDTBH #### [facility] [address] [place] [address] Dr. Jd Cook. monocytogenesNot detectedNormalNOT DETECTEDThe [facility] HospitalComment on above:Performed By: #### CVDTBH #### [facility] [address] [place] [address] Dr. Jd HumphreyMcr-1 Resistant GeneNot ApplicableNormalNOT DETECTEDThe [facility] HospitalComment on above:Performed By: #### CVDTBH #### [facility] [address] [place] [address] Dr. Jd Candelario/CNot ApplicableNormalNOT DETECTEDFirelands Regional Medical Center Comment on above:Performed By: #### CVDTBH #### [facility] [address] [place] [address] Dr. Jd Candelario/C MREJNot ApplicableNormalNOT DETECTEDThe [facility] Comment on above:Performed By: #### CVDTBH #### [facility] [address] [place] [address] Dr. Jd Townsend. meningitidisNot detectedNormalNOT DETECTEDThe [facility] HospitalComment on above:Performed By: #### CVDTBH #### [facility] [address] [address] [address] Jd Paz Resistant GeneNot ApplicableNormalNOT DETECTEDThe [facility] HospitalComment on above:Performed By: #### CVDTBH #### [facility] [address] [address] [address] Jd HumphreyFuftfZoo-04-zywqYtr ApplicableNormalNOT DETECTEDFirelands Regional Medical Center Comment on above:Performed By: #### CVDTBH #### [facility] [address] [address] [address] Jd HumphreyProteusNot detectedNormalNOT DETECTEDThe [facility] HospitalComment on above:Performed By: #### CVDTBH #### [facility] [address] [place] [address] Dr. Jd Emmanuel. aeruginosaNot detectedNormalNOT DETECTEDThe [facility] HospitalComment on above:Performed By: #### CVDTBH #### [facility] [address] [place] [address] Dr. Jd Ferguson. maltophiliaNot detectedNormalNOT DETECTEDFirelands Regional Medical Center Comment on above:Performed By: #### CVDTBH #### [facility] [address] [address] [address] Jd HumphreySalmonellaNot detectedNormalNOT DETECTEDFirelands Regional Medical Center Comment on above:Performed By: #### CVDTBH #### [facility] [address] [address] [address] Jd Maynard marcescensNot detectedNormalNOT DETECTEDThe [facility] HospitalComment on above:Performed By: #### CVDTBH #### [facility] [address] [address] [address] Jd Ziegler:laNormalThe [facility] HospitalComment on above:Performed By: #### CVDTBH #### [facility] [address] [address] [address] Jd Meneses. aureusNot detectedNormalNOT DETECTEDThe [facility] Comment on above:Performed By: #### CVDTBH #### [facility] [address] [address] [address] Jd Meneses. epidermidisNot detectedNormalNOT DETECTEDThe [facility] HospitalComp[facility] on above:Performed By: #### CVDTBH #### [facility] [address] [address] [address] Jd Meneses. lugdunensisNot detectedNormalNOT DETECTEDThe [facility] HospitalComp[facility] on above:Performed By: #### CVDTBH #### [facility] [address] [address] [address] Jd RoseococcusNot detectedNormalNOT DETECTEDThe [facility] Comment on above:Performed By: #### CVDTBH #### [facility] [address] [address] [address] Jd Contreras. agalactiaeNot detectedNormalNOT DETECTEDThe [facility] HospitalComp[facility] on above:Performed By: #### CVDTBH #### [facility] [address] [address] [address] Jd Contreras. pneumoniaeNot detectedNormalNOT DETECTEDThe [facility] on above:Performed By: #### CVDTBH #### [facility] [address] [address] [address] Jd Orellana pyogenesNot detectedNormalNOT DETECTEDThe [facility] HospitalComp[facility] on above:Performed By: #### CVDTBH #### [facility] [address] [address] [address] Jd ContrerastococcusDetectedCritically abnormalNOT DETECTEDThe [facility] HospitalComp[facility] on above:Performed By: #### CVDTBH #### [facility] [address] [place] [address] Dr. Jd Null/Keerthi Duarte. GeneNot ApplicableNormalNOT DETECTEDThe [facility] HospitalComp[facility] on above:Performed By: #### CVDTBH #### [facility] [address] [place] [address] Dr. Jd Wallis Resistant GeneNot ApplicableNormalNOT DETECTEDThe [facility] HospitalComp[facility] on above:Performed By: #### CVDTBH #### [facility] [address] [place] [address] Dr. Jd Monge AUTO DIFFon 83-05-1455XZCD #0.0 103/ulNormal0.0-0.1The [facility] HospitalComment on above:Performed By: #### DDIM #### [facility] [address] [place] [address] Dr. Jd HumphreyBasophils/100 WBC (Bld)0.3 %Normal0.2-2.0The [facility] Comment on above:Performed By: #### DDIM #### [facility] [address] [place] [address] Dr. Jd DiggsO #0.0 103/ulNormal0.0-0.7The [facility] HospitalComment on above: Performed By: #### DDIM #### [facility] [address] [place] [address] Dr. Jd Diggsosinophils/100 WBC (Bld)0.7 %Critically low0.9-7.0The [facility] on above:Performed By: #### DDIM #### [facility] [address] [place] [address] Dr. Jd Diggsrythrocyte distribution width (RBC) [Ratio]12.6 %Pvmgpc74.0-15.0 The [facility] HospitalComment on above:Performed By: #### DDIM #### [facility] [address] [place] [address] Dr. Jd HumphreyHematocrit (Bld) [Volume fraction]40.8 %Snudck12.0-48.0The [facility]acon[facility] Hospitalment on above:Performed By: #### DDIM #### [facility] [address] [place] [address] Dr. Jd HumphreyHemoglobin (Bld) [Mass/Vol]14.1 g/fHMconhy98.0-16.0The [facility] HospitalComment on above:Performed By: #### DDIM #### [facility] [address] [address] [address] Jd Lester #0.02 10e3/ulNormal0.00-0.03The [facility] HospitalComment on above:Performed By: #### DDIM #### [facility] [address] [address] [address] Jd Lester %0.3 %Normal0.0-0.5The [facility] HospitalComment on above: Performed By: #### DDIM #### [facility] [address] [address] [address] Jd Parrish #0.9 103/ulCritically low1.2-3.8The [facility] Comment on above:Performed By: #### DDIM #### [facility] [address] [place] [address] Dr. Jd Carsonhocytes/100 WBC (Bld)15.4 %Critically low20.5-60.0The [facility] HospitalComment on above:Performed By: #### DDIM #### [facility] [address] [place] [address] Dr. Jd BeanUAL DIFF REQNONormalThe [facility] HospitalComment on above: Performed By: #### DDIM #### [facility] [address] [address] [address] Jd Jewell (RBC) [Entitic mass]29.3 blYdaxas96.7-34.0The [facility] HospitalComment on above:Performed By: #### DDIM #### [facility] [address] [place] [address] Dr. Jd Clemons (RBC) [Mass/Vol]34.6 g/aRGgipbh22.9-35.2The [facility] HospitalComment on above:Performed By: #### DDIM #### [facility] [address] [place] [address] Dr. Jd Clemons (RBC) [Entitic vol]84.6 xIPpordg06.0-99.0The [facility] HospitalComment on above:Performed By: #### DDIM #### [facility] [address] [place] [address] Dr. Jd Nair #0.3 103/ulNormal0.3-0.8The [facility] HospitalComment on above:Performed By: #### DDIM #### [facility] [address] [place] [address] Dr. Jd Parksocytes/100 WBC (Bld)5.7 %Normal1.7-12.0The [facility] Comment on above:Performed By: #### DDIM #### [facility] [address] [place] [address] Dr. Jd Frausto #4.5 103/ulNormal1.4-6.5The [facility] HospitalComment on above:Performed By: #### DDIM #### [facility] [address] [place] [address] Dr. Jd Wuutrophils/100 WBC (Bld)77.6 %Critically high43.0-75.0The [facility] HospitalComment on above:Performed By: #### DDIM #### [facility] [address] [place] [address] Dr. Jd Rodriguez mean volume (Bld) [Entitic vol]11.0 fLNormal9.5-13.5The [facility] HospitalComment on above:Performed By: #### DDIM #### [facility] [address] [place] [address] Dr. Jd HumphreyPLT128 103/ulCritically mix898-532Axv [facility] HospitalComment on above:Performed By: #### DDIM #### [facility] [address] [place] [address] Dr. Jd ShafferC4.82 106/ulNormal4.20-5.40The [facility] HospitalComment on above:Performed By: #### DDIM #### [facility] [address] [place] [address] Dr. Jd HumphreyWBC5.8 103/ulNormal4.0-11.0The [facility] HospitalComment on above: Performed By: #### DDIM #### [facility] [address] [place] [address] Dr. Jd Shay 11-89-0393BTZ0.2 mg/dLNormal<=1.0The [facility] Comment on above:Performed By: #### BMP #### [facility] [address] [place] [address] Dr. Jd Tepmleton BLOODon 26-98-1214Tskypvebvfv examination of blood, cultureCulture Observations: NO GROWTH AT 5 DAYS.NormalThe [facility] HospitalComment on above:Performed By: #### BLDCX2 #### [facility] [address] [place] [address] Dr. Jd HumphreyLACTATE/LACTIC ACIDon 17-72-1155Uucwxfu [Moles/Vol]2.3 mmol/L Critically high0.4-1.9The [facility] HospitalComment on above:Performed By: #### BMP #### [facility] [address] [place] [address] Dr. Jd HumphreyPROF 14(COMP METB)on 15-22-4366Qxgmefj [Mass/Vol]3.6 g/dLNormal 3.4-5.0The [facility] HospitalComment on above:Performed By: #### BMP #### [facility] [address] [place] [address] Dr. Jd HumphreyAlbumin/Globulin [Mass ratio]1.2 {ratio}NormalThe [facility] HospitalComment on above:Performed By: #### BMP #### [facility] [address] [place] [address] Dr. Jd Tran [Catalytic activity/Vol]86 U/UQjnfds79-922Voy [facility] HospitalComment on above:Performed By: #### BMP #### [facility] [address] [place] [address] Dr. Jd Leyva [Catalytic activity/Vol]28 U/OQdodft65-88Djb [facility] HospitalComment on above:Performed By: #### BMP #### [facility] [address] [address] [address] Jd Galvan gap [Moles/Vol]15.2 mmol/LNormalThe [facility] Comment on above:Performed By: #### BMP #### [facility] [address] [address] [address] Jd HumphreyAST [Catalytic activity/Vol]27 U/HFvthmq57-81Nlx [facility] HospitalComment on above:Performed By: #### BMP #### [facility] [address] [address] [address] Jd HumphreyBilirubin [Mass/Vol]0.8 mg/dLNormal0.2-1.0The [facility] Comment on above:Performed By: #### BMP #### [facility] [address] [place] [address] Dr. Jd HumphreyCalcium [Mass/Vol]8.8 mg/dLNormal8.5-10.1The [facility] Comment on above:Performed By: #### BMP #### [facility] [address] [address] [address] Jd HumphreyChloride [Moles/Vol]104 mmol/EGsmrkm80-664Xam [facility] Comment on above:Performed By: #### BMP #### [facility] [address] [place] [address] Dr. Jd HumphreyCO2 [Moles/Vol]24.8 mmol/FWabufl36.0-32.0The [facility] Comment on above:Performed By: #### BMP #### [facility] [address] [address] [address] Jd HumphreyCreatinine [Mass/Vol]0.79 mg/dLNormal0.55-1.02The [facility] HospitalComment on above:Performed By: #### BMP #### [facility] [address] [address] [address] Miles ChangEGFR-AF FILIPINO>60Normal>=60The [facility] HospitalComment on above:Performed By: #### BMP #### [facility] [address] [address] [address] Jd DiggsGFR-NON AF FILIPINO>60Normal>=60The [facility] HospitalComment on above:Performed By: #### BMP #### [facility] [address] [address] [address] Jd HumphreyGlobulin (S) [Mass/Vol]3.0 g/dLNormCleveland Clinic Children's Hospital for RehabilitationComment on above:Performed By: #### BMP #### [facility] [address] [address] [address] Jd HumphreyGlucose [Mass/Vol]310 mg/dLCritically fjga29-271Nho [facility] HospitalComment on above:Performed By: #### BMP #### [facility] [address] [address] [address] Jd HumphreyPotassium [Moles/Vol]4.0 mmol/LNormal3.5-5.1The [facility] Comment on above:Performed By: #### BMP #### [facility] [address] [address] [address] Jd HumphreyProtein [Mass/Vol]6.6 g/dLNormal6.4-8.2The [facility] Comment on above:Performed By: #### BMP #### [facility] [address] [address] [address] Jd HumphreySodium [Moles/Vol]140 mmol/BYdljbe758-539Azf [facility] Comment on above:Performed By: #### BMP #### [facility] [address] [address] [address] Jd HumphreyUrea nitrogen [Mass/Vol]10.0 mg/dLNormal7.0-18.0The [facility] HospitalComment on above:Performed By: #### BMP #### [facility] [address] [place] [address] Dr. Jd Yeager nitrogen/Creatinine [Mass ratio]12.7 mg/mgNormalThClermont County HospitalComment on above:Performed By: #### BMP #### [facility] [address] [place], [place] [address] Dr. Jd Bhat RATE WESTERGRENon 89-73-4728TRV RATE12 mm/hrNormal<=30The [facility] HospitalComment on above:Performed By: #### BMP #### [facility] [address] [place], [place] [address] Dr. Jd HumphreyProcedure (Gastroenterology)on 67-50-3528Mptrgzvbw (Gastroenterology)Diagnoses/Problems Assessed Fatty (change of) liver, not elsewhere classified (571.8) (K76.0) Provider Impressions The median FIBROSCAN score is 16.4 kPa, which for this patient is consistent with METAVIR F4 fibrosis (cirrhosis) The median CAP score is 340 dB/m, which for this patient is consistent with 67- 100% hepatocyte steatosis. Chief Complaint 1040) Patient referred [...] classified (571.8) (K76.0) Hypertension (401.9) (I10) Methotrexate, terminal block assembler, current use (V58.69) (Z79.631) Rheumatoid arthritis (714.0) (M06.9) Thrombocytopenia (287.5) (D69.6) Past Medical History Problems Cirrhosis (571.5) (K74.60) Fatty (change of) liver, not elsewhere classified (571.8) (K76.0) History of blood product transfusion (V58.2) (Z92.89) History of coronary artery disease (V12.59) (Z86.79) History of fatty infiltration of liver (V12.79) (Z87.19) History of multiple sclerosis (340) (G35) Hypertension (401.9) (I10) Methotrexate, terminal block assembler, current use (V58.69) (Z79.631) Rheumatoid arthritis (714.0) [...] MOUTH AT BEDTIME NEEDED D3-50 1.25 MG (67769 UT) Oral CapsuleTAKE 1 CAPSULE EVERY 2 [...] MD; Jun 21 2022 12:25PM EST (Author) NormalUH TouchworksAlbumin [Mass/volume] in Serum or PlasmaOrdered By: Juan F Savage on 80-21-7229Fimsuxl [Mass/Vol]4.0 g/dL3.2-5.5FProtestant Deaconess HospitalBasophils Auto (Bld) [#/Vol]Ordered By: Juan F Savage on 05-10-2022 Basophils (Bld) [#/Vol]0.0 10*3/uL0.0-0.2FProtestant Deaconess Hospital Basophils/100 WBC Auto (Bld)Ordered By: Juan F Savage on 09-33-0674Kwrwvdhro/100 WBC (Bld)0.5 %.[facility] CampusCreatinine and Glomerular filtration rate.predicted panel (S/P/Bld)Ordered By: Juan F Savage on 05-10-2022 Creatinine [Mass/Vol]0.76 mg/dL0.44-1.03[facility] CampusDirect bilirubin measurementOrdered By: Juan F Savage on 31-75-6176Qdfrfmgpz.direct [Mass/Vol]0.2 mg/dL0.0-0.4FProtestant Deaconess HospitalEosinophils Auto (Bld) [#/Vol]Ordered By: Juan F Savage on 12-80-3925Nmbdbrriklt (Bld) [#/Vol]0.1 10*3/uL0.0-0.45[facility] CampusEosinophils/100 WBC Auto (Bld) Ordered By: Juan F Savage on 71-53-6120Dxjlowwnlkb/100 WBC (Bld)2.5 %.[facility] South CampusErythrocyte distribution width Auto (RBC) [Ratio]Ordered By: Juan F Savage on 37-47-9462Uohwteurzlw distribution width (RBC) [Ratio]13.5 %11.9-15.3FProtestant Deaconess HospitalEstimated glomerular filtration rate (GFR) non- AmericanOrdered By: Juan F Savage on 24-01-6747IML/1.73 sq M.predicted among non-blacks MDRD (S/P/Bld) [Vol rate/Area]> 60 mL/MinFirelands Regional Medical Center South CampusGlobulin Calc (S) [Mass/Vol]Ordered By: Juan F Savage on 48-60-9782Awdzfvaf (S) [Mass/Vol]2.1 g/dLFirelands Regional Medical Center South Campus Hematocrit Auto (Bld) [Volume fraction]Ordered By: Juan F Savage on 05-10-2022 Hematocrit (Bld) [Volume fraction]47.5 %34.0-46.4FProtestant Deaconess HospitalHemoglobin [Mass/volume] in BloodOrdered By: Juan F Savage on 05-10-2022 Hemoglobin (Bld) [Mass/Vol]15.8 g/dL11.8-15.4FProtestant Deaconess Hospital Laboratory - CoagulationOrdered By: Juan F Savage on 04-22-0567QQ Coag (PPP) [Time]14.1 s9.0-12.9[facility] CampusLaboratory - Hematology and Cell countsOrdered By: Juan F Savage on 42-59-9228Frjqhqzrf RBC/100 WBC (Bld) [Ratio]0.1 %0-0.5FProtestant Deaconess HospitalLeukocytes [#/volume] in Blood by Automated countOrdered By: Juan F Savage on 43-68-3538OUY (Bld) [#/Vol]5.9 10*3/uL4.5-11.0[facility] CampusLymphocytes Auto (Bld) [#/Vol] Ordered By: Juan F Savage on 71-07-3853Fwxxthsxsql (Bld) [#/Vol]1.0 10*3/uL 1.00-4.8[facility] South CampusLymphocytes/100 WBC Auto (Bld)Ordered By: Juan F Savage on 48-93-3951Uovyxnscejb/100 WBC (Bld)17.1 %.[facility] Auto (RBC) [Entitic mass]Ordered By: Juan F Savage on 58-00-0368VVJ (RBC) [Entitic mass]28.4 pg24.7-34.3FProtestant Deaconess HospitalMC Auto (RBC) [Mass/Vol]Ordered By: Juan F Savage on 51-57-6491TOAX (RBC) [Mass/Vol]33.3 g/dL32.0-35.0[facility] CampusMCV Auto (RBC) [Entitic vol]Ordered By: Juan F Savage on 33-26-0107VIZ (RBC) [Entitic vol]85.3 iS50-937HfyctpbqjFirelands Regional Medical Center South CampusMonocytes Auto (Bld) [#/Vol] Ordered By: Juan F Savage on 41-09-1581Osyzmjufw (Bld) [#/Vol]0.5 10*3/uL0.0-0.8 [facility] CampusMonocytes/100 WBC Auto (Bld)Ordered By: Juan F Savage on 02-76-7779Wvrecorhk/100 WBC (Bld)8.3 %.[facility] CampusNeutrophils Auto (Bld) [#/Vol]Ordered By: Juan F Savage on 05-10-2022 Neutrophils (Bld) [#/Vol]4.3 10*3/uL1.8-7.7FProtestant Deaconess Hospital Neutrophils/100 WBC Auto (Bld)Ordered By: Juan F Savage on 05-10-2022 Neutrophils/100 WBC (Bld)71.6 %.[facility] CampusNo Panel InformationOrdered By: Juan F Savage on 98-88-2311Svgeetofq GFR ()> 60 mL/MinFirelands Regional Medical Center South CampusComment on above:GFR estimated reference range: According to KDOQI guidelines, <60 ml/min/1.73m2 is sufficient todiagnose a patient with chronic kidney disease.Pharmacy Creatinine Clearance (ChemN/[facility] HospitalPlatelet mean volume Auto (Bld) [Entitic vol]Ordered By: Juan F Savage on 52-18-0091Vpwyrgbv mean volume (Bld) [Entitic vol]8.9 fL6.3-10.7FProtestant Deaconess HospitalPlatelet poor plasma international normalized ratio (INR) by coagulation assay (relatOrdered By: Juan F Savage on 46-24-3268SUJ Coag (PPP) [Relative time]1.2 {INR}[facility] CampusComment on above:INR Therapeutic Range A) Pre- and Peroperative OAT started two weeks before surgery. NOT HIP SURGERY: 1.5 - 2.5 HIP SURGERY: 2 - 3B) Primary and secondary prevention of venous THROMBOSIS: 2 - 3C) Active venous thrombosis, pulmonary embolismand prevention of recurrent venous thrombosis: 2 - 3D) Prevention of arterial thromboembolismincluding patients with mechanical heart valves: 3 - 4.5Platelets Auto (Bld) [#/Vol] Ordered By: Juan F Savage on 93-01-0327Wddtuximh (Bld) [#/Vol]150 10*3/gG261-792 [facility] CampusProtein [Mass/volume] in Serum or PlasmaOrdered By: Juan F Savage on 97-44-4776Bkannjf [Mass/Vol]6.1 g/dL6.1-7.9[facility] South CampusRBC Auto (Bld) [#/Vol]Ordered By: Juan F Savage on 30-78-1050YBU (Bld) [#/Vol]5.56 10*6/uL3.60-5.00[facility] Hospitalerum or plasma alanine aminotransferase measurement without P-5'-P (enzymatic activiOrdered By: Juan F Savage on 64-99-3077UYG No additional P-5'-P [Catalytic activity/Vol]14 U/Q13-71KiboltmtuProtestant Deaconess Hospitalerum or plasma albumin/globulin mass ratioOrdered By: Juan F Savage on 05-10-2022 Albumin/Globulin [Mass ratio]1.9 {ratio}[facility] Hospitalerum or plasma alkaline phosphatase measurement (enzymatic activity/volume)Ordered By: Juan F Savage on 66-14-4742RRT [Catalytic activity/Vol]68 U/E70-66PwkgskohqProtestant Deaconess Hospitalerum or plasma anion gap determinationOrdered By: Juan F Savage on 98-08-8612Naadu gap [Moles/Vol]10.4 mmol/L6.0-15.0[facility] Hospitalerum or plasma aspartate aminotransferase measurement (enzymatic activity/volume)Ordered By: Juan F Savage on 65-84-6831MYC [Catalytic activity/Vol]21 U/S80-56QlkcoosguProtestant Deaconess Hospitalerum or plasma calcium measurement (mass/volume)Ordered By: Juan F Savage on 21-87-9733Fhrpieq [Mass/Vol]9.5 mg/dL8.2-10.2FKeenan Private Hospitalerum or plasma chloride measurement (moles/volume)Ordered By: Juan F Savage on 05-10-2022 Chloride [Moles/Vol]103 mmol/R33-078FzkjvqeywProtestant Deaconess Hospitalerum or plasma glucose measurement (mass/volume)Ordered By: Juan F Savage on 05-10-2022 Glucose [Mass/Vol]118 mg/mJ80-691RekdfgkuuFirelands Regional Medical Center South CampusComment on above:ADA recommended reference rangeRandom Glucose Reference Range is dependent on time and content of last meal. Glucose of more than 200 mg/dL in a nonstressed, ambulatory subject supports the diagnosisof Diabetes Mellitus.Serum or plasma potassium measurement (moles/volume)Ordered By: Juan F Savage on 14-88-1107Lbqpycibz [Moles/Vol]3.9 mmol/L3.5-5.1FKeenan Private Hospitalerum or plasma sodium measurement (moles/volume)Ordered By: Juan F Savage on 40-08-0188Hxeymz [Moles/Vol]138 mmol/M621-915CaciindhkProtestant Deaconess Hospitalerum or plasma total bilirubin measurement (mass/volume)Ordered By: Juan F Savage on 15-58-5778Qsxddjnso [Mass/Vol]0.9 mg/dL0.3-1.2FKeenan Private Hospitalerum or plasma total carbon dioxide measurement (moles/volume)Ordered By: Juan F Savage on 51-81-7398VR0 [Moles/Vol]28.5 mmol/L 22.0-30.0[facility] Hospitalerum or plasma urea nitrogen measurement (mass/volume)Ordered By: Juan F Savage on 14-54-6705Xaom nitrogen [Mass/Vol]19 mg/dL9-23[facility] South CampusEstablished Visit (Gastroenterology)on 77-31-8948Zfpxpgfzyzs Visit (Gastroenterology) Diagnoses/Problems Assessed Cirrhosis (571.5) (K74.60) Orders Cirrhosis, Fatty (change of) liver, not elsewhere classified, Thrombocytopenia Alpha Fetoprotein, Serum; Status:Active; Requested for:17Apr2022; Perform:Lab Services - Lab To Draw (Blood Test); Due:16Jul2022;Ordered; For:Cirrhosis, Fatty (change of) liver, not elsewhere classified, Thrombocytopenia; Ordered By:Juan F Savage; Hepatology Follow-Up Outpatient Follow-up IN 6 MONTHS Status: Hold For - ,Exact Date Requested for: Ordered;For: Cirrhosis, Fatty (change of) liver, not elsewhere classified, Thrombocytopenia; Ordered By: Juan F Svaage Performed: Due: 16Jul2022 Alpha Fetoprotein, Serum; Status:Hold [...] Bilirubin, Serum Direct - Conjugated; Status:Hold For Exact Date; Requested for:; Perform:Lab Services - [...] F Savage; Comprehensive Metabolic Panel; Status:Hold For Exact Date; Requested for:; Perform:Lab Services - [...] Scheduling; Requested for:17Apr2022; Perform: Radiology Services Imaging; Due:16Jul2022;Ordered; For:Cirrhosis, Fatty [...] swelling in the abdomen and legs, confusion orexcessive sleepiness, vomiting or seeing blood in the [...] of Present Illnessshe vasquez (more content not included)...NormalUH TouchworksMICROALB CREAT RATIO RANDOMon 14-40-5007aDSM6.0 mg/LNormal<=30.0The [facility] HospitalComment on above:Performed By: #### CXWND #### [facility] [address] [place] [address] Dr. Jd Rogers CR RATIO17.2 mg/gNormal0.0-29.9The [facility] HospitalComment on above:Performed By: #### CXWND #### [facility] [address] [place] [address] Dr. Jd Rogers CR RATIO [facility] HospitalComment on above:Result Comment: NO MICROALBUMINURIA 0-29 MG/G CLINICAL MICROALBUMINURIA 30-300 MG/G MACROALBUMINURIA >300 MG/GPerformed By: #### CXWND #### [facility] [address] [place] [address] Dr. Jd Rojo FXRXU758.16 mg/lQGbrzdw42.00-300.00[facility] Comment on above:Performed By: #### CXWND #### [facility] [address] [place] [address] Dr. Jd Monge AUTO DIFFon 94-23-4634HOYO #0.0 103/ulNormal0.0-0.1[facility] Medical CenterComment on above:Performed By: #### CXWND #### [facility] [address] [place] [address] Dr. Jd HumphreyBasophils/100 WBC (Bld)0.6 %Normal0.2-2.0[facility] Comment on above:Performed By: #### CXWND #### [facility] [address] [place] [address] Dr. Jd Rodriguez #0.2 103/ulNormal0.0-0.7The [facility] HospitalComment on above: Performed By: #### CXWND #### [facility] [address] [place] [address] Dr. Jd Diggsosinophils/100 WBC (Bld)3.8 %Normal0.9-7.0[facility] Comment on above:Performed By: #### CXWND #### [facility] [address] [place] [address] Dr. Jd Diggsrythrocyte distribution width (RBC) [Ratio]13.1 %Xzgfso31.0-15.0 The [facility] HospitalComment on above:Performed By: #### CXWND #### [facility] [address] [place] [address] Dr. Jd HumphreyHematocrit (Bld) [Volume fraction]41.9 %Ifynvs11.0-48.0The [facility] HospitalComment on above:Performed By: #### CXWND #### [facility] [address] [place] [address] Dr. Jd HumphreyHemoglobin (Bld) [Mass/Vol]14.0 g/bNNepfdg98.0-16.0The [facility] HospitalComment on above:Performed By: #### CXWND #### [facility] [address] [place] [address] Dr. Jd Lester #0.03 10e3/ulNormal0.00-0.03The [facility] HospitalComment on above:Performed By: #### CXWND #### [facility] [address] [place] [address] Dr. Jd Lester %0.6 %Critically high0.0-0.5The [facility] HospitalComment on above:Performed By: #### CXWND #### [facility] [address] [place] [address] Dr. Jd Parrish #1.1 103/ulCritically low1.2-3.8[facility] Comment on above:Performed By: #### CXWND #### [facility] [address] [place] [address] Dr. Jd Baezamphocytes/100 WBC (Bld)20.1 %Critically low20.5-60.0The [facility] HospitalComment on above:Performed By: #### CXWND #### [facility] [address] [place] [address] Dr. Jd BeanUAL DIFF REQNONormalThe [facility] Community HospitalComment on above: Performed By: #### CXWND #### [facility] [address] [place] [address] Dr. Jd Jewell (RBC) [Entitic mass]28.9 rnEdqpfj04.7-34.0The [facility] HospitalComment on above:Performed By: #### CXWND #### [facility] [address] [place] [address] Dr. Jd Clemons (RBC) [Mass/Vol]33.4 g/pQRghcxv86.9-35.2The [facility] HospitalComment on above:Performed By: #### CXWND #### [facility] [address] [place] [address] Dr. Jd Clemons (RBC) [Entitic vol]86.4 kUXotluz74.0-99.0The [facility] HospitalComment on above:Performed By: #### CXWND #### [facility] [address] [place] [address] Dr. Jd Nair #0.5 103/ulNormal0.3-0.8The [facility] HospitalComment on above:Performed By: #### CXWND #### [facility] [address] [place] [address] Dr. Jd Parksocytes/100 WBC (Bld)8.8 %Normal1.7-12.0[facility] Comment on above:Performed By: #### CXWND #### [facility] [address] [place] [address] Dr. Jd Frausto #3.5 103/ulNormal1.4-6.5The [facility] HospitalComment on above:Performed By: #### CXWND #### [facility] [address] [place] [address] Dr. Jd Wuutrophils/100 WBC (Bld)66.1 %Ctplrd35.0-75.0The [facility] HospitalComment on above:Performed By: #### CXWND #### [facility] [address] [place] [address] Dr. Jd Samuelslet mean volume (Bld) [Entitic vol]11.2 fLNormal9.5-13.5The [facility] HospitalComment on above:Performed By: #### CXWND #### [facility] [address] [place] [address] Dr. Jd HumphreyPLT115 103/ulCritically llg046-555Ywj [facility] HospitalComment on above:Result Comment: SOME LARGE PLATELETS SEEN, BUT NO PLT CLUMPING AND PLT NUMBER APPEARS NORMAL ON PERIPHERAL SMEARPerformed By: #### CXWND #### [facility] [address] [place] [address] Dr. Jd HumphreyRBC4.85 106/ulNormal4.20-5.40The [facility] HospitalComment on above:Performed By: #### CXWND #### [facility] [address] [place] [address] Dr. Jd HumphreyWBC5.2 103/ulNormal4.0-11.0The [facility] HospitalComment on above: Performed By: #### CXWND #### [facility] [address] [place] [address] Dr. Jd HumphreyCREATININEon 95-52-0472Bexezknxxg [Mass/Vol]0.61 mg/dLNormal 0.55-1.02The [facility] HospitalComment on above:Performed By: #### CVDTBH #### [facility] [address] [address] [address] Jd DiggsGFR-AF FILIPINO>60Normal>=60[facility] CenterCompine rest [facility] on above:Performed By: #### CVDTBH #### [facility] [address] [place] [address] Dr. Jd HumphreyPerformed By: #### DDIM #### [facility] [address] [place] [address] Dr. Jd DiggsGFR-NON AF FILIPINO>60Normal>=60The [facility] HospitalComp[facility] on above:Performed By: #### CVDTBH #### [facility] [address] [place] [address] Dr. Jd HumphreyPerformed By: #### DDIM #### [facility] [address] [place] [address] Dr. Jd HumphreyLIPID PROFILEon 16-99-8364VOEL-HDL RATIO [facility] HospitalComp[facility] on above:Result Comment: 3.3 - 4.4 LOW RISK 4.4 - 7.1 AVERAGE RISK 7.1 - 11.0 MODERATE RISK >11.0 HIGH RISKPerformed By: #### DDIM #### [facility] [address] [place] [address] Dr. Jd Concepcionesterol [Mass/Vol]259 mg/dLCritically high<=200[facility] on above:Performed By: #### DDIM #### [facility] [address] [place] [address] Dr. Jd Concepcionesterol in HDL [Mass/Vol]79 mg/dLCritically qujf65-08EujSt. Rita's Hospital on above:Performed By: #### DDIM #### [facility] [address] [place] [address] Dr. Jd Concepcionesterol in LDL [Mass/Vol]165.6 mg/dLPeoples Hospital on above:Performed By: #### DDIM #### [facility] [address] [place] [address] Dr. Yilan ChangCholesterol.total/Cholesterol in HDL [Mass ratio]3.3 {ratio} NormalFirelands Regional Medical CenterComment on above:Performed By: #### DDIM #### [facility] [address] [address] [address] Jd Benavides NORMAL> or = 60 mg/dl - LOW CARDIOVASCULAR RISK <40 mg/dl - HIGH CARDIOVASCULAR RISKCleveland Clinic Akron GeneralComment on above:Performed By: #### DDIM #### [facility] [address] [address] [address] Jd HumphreyLDL CALC NORMALSEE BELOWNoCleveland Clinic Marymount HospitalComment on above:Result Comment: <100 mg/dl OPTIMAL 100 - 129 mg/dl NEAR OR ABOVE OPTIMAL 130 - 159 mg/dl BORDERLINE HIGH 160 - 189 mg/dl HIGH >190 mg/dl VERY HIGH Performed By: #### DDIM #### [facility] [address] [place] [address] Dr. Jd HumphreyTriglyceride [Mass/Vol]72 mg/dLNormal<=150The [facility] Comment on above:Performed By: #### DDIM #### [facility] [address] [address] [address] Jd LeonLDL CALC14.4 mg/dLNoCleveland Clinic Marymount HospitalCompine rest [facility] on above: Performed By: #### DDIM #### [facility] [address] [place] [address] Dr. Jd Arreloa PROFILEon 99-81-2332Csjqgnl [Mass/Vol]3.7 g/dLNormal3.4-5.0 [facility] CenterComp[facility] on above:Performed By: #### CVDTBH #### [facility] [address] [address] [address] Jd HumphreyAlbumin/Globulin [Mass ratio]1.1 {ratio}NormalThe [facility] Community HospitalComment on above:Performed By: #### CVDTBH #### [facility] [address] [place] [address] Dr. Jd RamonP [Catalytic activity/Vol]98 U/YGnfyty14-305EnsSt. Rita's Hospital on above:Performed By: #### CVDTBH #### [facility] [address] [place] [address] Dr. Jd HumphreyPerformed By: #### DDIM #### [facility] [address] [place] [address] Dr. Jd Leyva [Catalytic activity/Vol]32 U/UBvsudr76-08LxvSt. Rita's Hospital on above:Performed By: #### CVDTBH #### [facility] [address] [place] [address] Dr. Jd Ray [Catalytic activity/Vol]19 U/QGrpflx82-97Upg [facility] on above:Performed By: #### CVDTBH #### [facility] [address] [place] [address] Dr. Jd Sandoval, CONJUGATED0.1 mg/dLNormal0.0-0.2[facility] Comment on above:Performed By: #### CVDTBH #### [facility] [address] [place] [address] Dr. Jd Johnson [Mass/Vol]0.4 mg/dLNormal0.2-1.0[facility] Comment on above:Performed By: #### CVDTBH #### [facility] [address] [place] [address] Dr. Jd Hearnformed By: #### DDIM #### [facility] [address] [place] [address] Dr. Jd HumphreyGlobulin (S) [Mass/Vol]3.4 g/dLNormalThe [facility] HospitalCompine rest [facility] on above:Performed By: #### CVDTBH #### [facility] [address] [place] [address] Dr. Jd HumphreyProtein [Mass/Vol]7.1 g/dLNormal6.4-8.2[facility] Comment on above:Performed By: #### CVDTBH #### [facility] [address] [place] [address] Dr. Jd HumphreyPerformed By: #### DDIM #### [facility] [address] [address] [address] Jd HumphreyPROF 14(COMP METB)on 31-18-1835Mlqdmzl [Mass/Vol]3.8 g/dLNormal 3.4-5.0The [facility] HospitalComment on above:Performed By: #### DDIM #### [facility] [address] [address] [address] Jd HumphreyAlbumin/Globulin [Mass ratio]1.2 {ratio}NormalThe [facility] HospitalComment on above:Performed By: #### DDIM #### [facility] [address] [address] [address] Jd RamonT [Catalytic activity/Vol]31 U/OMruvjh10-14Fsm [facility] HospitalComment on above:Performed By: #### DDIM #### [facility] [address] [address] [address] Jd Galvan gap [Moles/Vol]10.7 mmol/LNormalThe [facility] Comment on above:Performed By: #### DDIM #### [facility] [address] [address] [address] Jd HumphreyAST [Catalytic activity/Vol]14 U/LCritically ggw24-31Fpk [facility] HospitalComment on above:Performed By: #### DDIM #### [facility] [address] [address] [address] Jd HumphreyCalcium [Mass/Vol]9.4 mg/dLNormal8.5-10.1[facility] Comment on above:Performed By: #### DDIM #### [facility] [address] [address] [address] Jd HumphreyChloride [Moles/Vol]101 mmol/QSbzfpk06-602Oqp [facility] Comment on above:Performed By: #### DDIM #### [facility] [address] [address] [address] Jd HumphreyCO2 [Moles/Vol]28.2 mmol/QRyrtzy67.0-32.0[facility] Comment on above:Performed By: #### DDIM #### [facility] [address] [address] [address] Jd HumphreyCreatinine [Mass/Vol]0.63 mg/dLNormal0.55-1.02The [facility] HospitalComment on above:Performed By: #### DDIM #### [facility] [address] [address] [address] Jd HumphreyGlobulin (S) [Mass/Vol]3.3 g/dLNoCleveland Clinic Marymount HospitalComment on above:Performed By: #### DDIM #### [facility] [address] [address] [address] Jd HumphreyGlucose [Mass/Vol]250 mg/dLCritically lhmf01-241Qod [facility] HospitalComment on above:Performed By: #### DDIM #### [facility] [address] [address] [address] Jd HumphreyPotassium [Moles/Vol]3.9 mmol/LNormal3.5-5.1The [facility] Comment on above:Performed By: #### DDIM #### [facility] [address] [address] [address] Jd HumphreySodium [Moles/Vol]136 mmol/CBkhznh448-153ZcqFirelands Regional Medical Center Comment on above:Performed By: #### DDIM #### [facility] [address] [address] [address] Jd HumphreyUrea nitrogen [Mass/Vol]14.0 mg/dLNormal7.0-18.0The [facility] HospitalComment on above:Performed By: #### DDIM #### [facility] [address] [address] [address] Jd HumphreyUrea nitrogen/Creatinine [Mass ratio]22.2 mg/mgNoCleveland Clinic Marymount HospitalComment on above:Performed By: #### DDIM #### [facility] [address] [address] [address] Jd Bhat RATE WESTERGRENon 79-75-6309UNK RATE18 mm/hrNormal<=30[facility] CenterComment on above:Performed By: #### CVDTBH #### [facility] [address] [place] [address] Dr. Jd Mehta FAST SMEAR AND CXon 48-41-6821Engk Fast CultureNegative [facility] GeneralComment on above:Result Comment: No acid fast bacilli isolated after 6 weeks.Performed By: #### BMP #### [facility] [address] [place] [address] Dr. Jd Mehta Fast SmearNegativeCleveland Clinic Akron GeneralComment on above:Performed By: #### BMP #### [facility] [address] [place] [address] Dr. Jd Bledsoe Specimen ProcessingTissuSelect Medical Specialty Hospital - [facility] Comment on above:Performed By: #### BMP #### [facility] [address] [place] [address] Dr. Jd CollierAL CULTUREon 44-95-0290Nrkkbg (Mycology) CultureFinal report [facility] GeneralComp[facility] on above:Performed By: #### CXWND #### [facility] [address] [place] [address] Dr. Jd Montague StainFinal reportNoCleveland Clinic Marymount HospitalComment on above:Performed By: #### CXWND #### [facility] [address] [place] [address] Dr. Jd Faust 1CUC HealthComment on above:Result Comment: DWIGHT/Calcofluor preparation: no fungus observed.Performed By: #### CXWND #### [facility] [address] [place] [address] Dr. Jd Faust Comment: No yeast or mold isolated after 4 weeks.TISSUE CULTUREon 91-69-4913Tpiqrknho Culture, Extended IncubationFinal reportCleveland Clinic Akron GeneralComment on above:Performed By: #### CXWND #### [facility] [address] [place] [address] Dr. Jd Faust 1CommentNoCleveland Clinic Marymount HospitalComment on above:Result Comment: No growth in 56 - 72 hours.Performed By: #### CXWND #### [facility] [address] [place] [address] Dr. Jd Faust Comment: No growth after 14 days.Tissue CultureFinal reportNoCleveland Clinic Marymount HospitalComment on above:Performed By: #### CXWND #### [facility] [address] [place] [address] Dr. Jd Angelo CULTUREon 55-15-6266Imtpzylrieqbx SusceptibilityComment [facility] GeneralComp[facility] rest [facility] on above:Result Comment: S = Susceptible; I = Intermediate; R = Resistant P = Positive; N = Negative MICS are expressed in micrograms per mL Antibiotic RSLT#1 RSLT#2 RSLT#3 RSLT#4 Ampicillin R Cefazolin R Cefepime S Ceftriaxone S Cefuroxime S Ciprofloxacin S Gentamicin S Imipenem R Levofloxacin S Meropenem S Piperacillin/Tazobactam S Tetracycline R Tobramycin SPerformed By: #### CXWND #### [facility] [address] [place] [address] Dr. Jd Faust Comment: S = Susceptible; I = Intermediate; R = Resistant P = Positive; N = Negative MICS are expressed in micrograms per mL Antibiotic RSLT#1 RSLT#2 RSLT#3 RSLT#4 Ampicillin R Cefazolin R Cefepime S Ceftriaxone I Cefuroxime S Ciprofloxacin S Gentamicin S Imipenem I Levofloxacin S Meropenem S Piperacillin/Tazobactam S Tetracycline R Tobramycin SPerformed By: #### CVDTBH #### [facility] [address] [place] [address] Dr. Jd Chen identified Aer cx Nom (Unsp spec)Final reportAbnoCleveland Clinic Marymount HospitalComment on above:Performed By: #### CXWND #### [facility] [address] [place] [address] Dr. Jd HumphreyPerformed By: #### CVDTBH #### [facility] [address] [place] [address] Dr. Jd Faust 1Providencia rettgeriAbnormalFirelands Regional Medical CenterComment on above:Result Comment: Heavy growthPerformed By: #### CXWND #### [facility] [address] [place] [address] Dr. Jd Faust Comment: Multi-Drug Resistant Organism Light growthPerformed By: #### CVDTBH #### [facility] [address] [place] [address] Dr. Jd Monge AUTO DIFFon 51-10-0645SGKW #0.0 103/ulNormal0.0-0.1[facility] CenterComment on above:Performed By: #### CXWND #### [facility] [address] [place] [address] Dr. Jd HumphreyBasophils/100 WBC (Bld)0.7 %Normal0.2-2.0[facility] Comment on above:Performed By: #### CXWND #### [facility] [address] [place] [address] Dr. Jd Rodriguez #0.2 103/ulNormal0.0-0.7The [facility] HospitalComment on above: Performed By: #### CXWND #### [facility] [address] [place] [address] Dr. Jd Diggsosinophils/100 WBC (Bld)3.3 %Normal0.9-7.0[facility] Comment on above:Performed By: #### CXWND #### [facility] [address] [place] [address] Dr. Jd Diggsrythrocyte distribution width (RBC) [Ratio]12.1 %Wjxoge64.0-15.0 [facility] CenterComment on above:Performed By: #### CXWND #### [facility] [address] [place] [address] Dr. Jd HumphreyHematocrit (Bld) [Volume fraction]39.4 %Mlycyu59.0-48.0[facility] CenterComment on above:Performed By: #### CXWND #### [facility] [address] [address] [address] Jd HumphreyHemoglobin (Bld) [Mass/Vol]13.6 g/sYNrarja77.0-16.0The [facility] HospitalComment on above:Performed By: #### CXWND #### [facility] [address] [place] [address] Dr. Jd Lester #0.01 10e3/ulNormal0.00-0.03The [facility] HospitalComment on above:Performed By: #### CXWND #### [facility] [address] [place] [address] Dr. Jd Lester %0.2 %Normal0.0-0.5The [facility] HospitalComment on above: Performed By: #### CXWND #### [facility] [address] [place] [address] Dr. Jd Parrish #1.0 103/ulCritically low1.2-3.8The [facility] Comment on above:Performed By: #### CXWND #### [facility] [address] [place] [address] Dr. Jd Carsonhocytes/100 WBC (Bld)22.7 %Wixvgm66.5-60.0The [facility] HospitalComment on above:Performed By: #### CXWND #### [facility] [address] [place] [address] Dr. Jd BeanUAL DIFF REQNONormalThe [facility] HospitalComment on above: Performed By: #### CXWND #### [facility] [address] [place] [address] Dr. Jd Jewell (RBC) [Entitic mass]29.1 lfVcywoa05.7-34.0The [facility] HospitalComment on above:Performed By: #### CXWND #### [facility] [address] [place] [address] Dr. Jd Clemons (RBC) [Mass/Vol]34.5 g/zHXibspz14.9-35.2The [facility] HospitalComment on above:Performed By: #### CXWND #### [facility] [address] [place] [address] Dr. Jd Dial (RBC) [Entitic vol]84.2 cZCxtsdf68.0-99.0The [facility] HospitalComment on above:Performed By: #### CXWND #### [facility] [address] [place] [address] Dr. Jd Nair #0.4 103/ulNormal0.3-0.8The [facility] HospitalComment on above:Performed By: #### CXWND #### [facility] [address] [place] [address] Dr. Jd Parksocytes/100 WBC (Bld)9.6 %Normal1.7-12.0The [facility] Comment on above:Performed By: #### CXWND #### [facility] [address] [place] [address] Dr. Jd Frausto #2.9 103/ulNormal1.4-6.5The [facility] HospitalComment on above:Performed By: #### CXWND #### [facility] [address] [place] [address] Dr. Jd Wuutrophils/100 WBC (Bld)63.5 %Ngtlah82.0-75.0The [facility] HospitalComment on above:Performed By: #### CXWND #### [facility] [address] [place] [address] Dr. Jd Samuelslet mean volume (Bld) [Entitic vol]11.1 fLNormal9.5-13.5The [facility] HospitalComment on above:Performed By: #### CXWND #### [facility] [address] [place] [address] Dr. Jd HumphreyPLT122 103/ulCritically aws843-312Bxy [facility] HospitalComment on above:Performed By: #### CXWND #### [facility] [address] [place] [address] Dr. Jd HumphreyRBC4.68 106/ulNormal4.20-5.40The [facility] HospitalComment on above:Performed By: #### CXWND #### [facility] [address] [place] [address] Dr. Jd HumphreyWBC4.6 103/ulNormal4.0-11.0The [facility] HospitalComment on above: Performed By: #### CXWND #### [facility] [address] [place] [address] Dr. Jd HumphreyPOINT OF CARE GLUCOSEon 19-66-3504Yadnney [Mass/Vol]138 mg/dL Critically tsys53-044Fsd [facility] HospitalComment on above:Performed By: #### CVDTBH #### [facility] [address] [place] [address] Dr. Jd HumphreyGlucose [Mass/Vol]104 mg/wRDdztzz82-090AtwFirelands [facility] Comment on above:Performed By: #### DDIM #### [facility] [address] [place] [address] Dr. Jd HumphreyPROF CHEM 8 (BAS METB)on 57-28-6169Rsqea gap [Moles/Vol]11.0 mmol/LNormalFirelands Regional Medical CenterComment on above:Performed By: #### BMP #### [facility] [address] [place] [address] Dr. Jd HumphreyCalcium [Mass/Vol]8.8 mg/dLNormal8.5-10.1[facility] Comment on above:Performed By: #### BMP #### [facility] [address] [place] [address] Dr. Jd HumphreyChloride [Moles/Vol]106 mmol/FIetefk36-782LefFirelands Regional Medical Center Comment on above:Performed By: #### BMP #### [facility] [address] [place] [address] Dr. Jd HumphreyCO2 [Moles/Vol]25.7 mmol/NWvprmc43.0-32.0The [facility] Comment on above:Performed By: #### BMP #### [facility] [address] [address] [address] Jd HumphreyCreatinine [Mass/Vol]0.56 mg/dLNormal0.55-1.02The [facility] HospitalComment on above:Performed By: #### BMP #### [facility] [address] [address] [address] Miles ChangEGFR-AF FILIPINO>60Normal>=60The [facility] HospitalComment on above:Performed By: #### BMP #### [facility] [address] [address] [address] Jd DiggsGFR-NON AF FILIPINO>60Normal>=60The [facility] HospitalComment on above:Performed By: #### BMP #### [facility] [address] [place] [address] Dr. Jd HumphreyGlucose [Mass/Vol]97 mg/gVYcjoes36-034Loj [facility] Comment on above:Performed By: #### BMP #### [facility] [address] [place] [address] Dr. Jd HumphreyPotassium [Moles/Vol]3.7 mmol/LNormal3.5-5.1The [facility] Comment on above:Performed By: #### BMP #### [facility] [address] [place] [address] Dr. Jd HumphreySodium [Moles/Vol]139 mmol/DPvjyjn710-089Gsg [facility] Comment on above:Performed By: #### BMP #### [facility] [address] [place] [address] Dr. Jd HumphreyUrea nitrogen [Mass/Vol]10.0 mg/dLNormal7.0-18.0The [facility] HospitalComment on above:Performed By: #### BMP #### [facility] [address] [place] [address] Dr. Jd Yeager nitrogen/Creatinine [Mass ratio]17.9 mg/mgNormalThe [facility] HospitalComment on above:Performed By: #### BMP #### [facility] [address] [place] [address] Dr. Jd HumphreyVANCOMYCIN TROUGHon 28-59-9390PSVOHSFNJI VJQWLC42.2 ug/mlNormal 5.0-20.0The [facility] HospitalComment on above:Performed By: #### CVDTBH #### [facility] [address] [place] [address] Dr. Jd MaldonadoC AUTO DIFFon 22-99-9128XZMF #0.0 103/ulNormal0.0-0.1The [facility] HospitalComment on above:Performed By: #### DDIM #### [facility] [address] [place] [address] Dr. Jd HumphreyBasophils/100 WBC (Bld)0.5 %Normal0.2-2.0[facility] Comment on above:Performed By: #### DDIM #### [facility] [address] [place] [address] Dr. Jd Rodriguez #0.2 103/ulNormal0.0-0.7The [facility] HospitalComment on above: Performed By: #### DDIM #### [facility] [address] [place] [address] Dr. Jd Diggsosinophils/100 WBC (Bld)4.7 %Normal0.9-7.0[facility] Comment on above:Performed By: #### DDIM #### [facility] [address] [place] [address] Dr. Jd Diggsrythrocyte distribution width (RBC) [Ratio]12.3 %Blmgho63.0-15.0 [facility] CenterComment on above:Performed By: #### DDIM #### [facility] [address] [place] [address] Dr. Jd HumphreyHematocrit (Bld) [Volume fraction]37.2 %Lsgqda44.0-48.0[facility] CenterComment on above:Performed By: #### DDIM #### [facility] [address] [place] [address] Dr. Jd HumphreyHemoglobin (Bld) [Mass/Vol]12.8 g/jRRvdgma38.0-16.0The [facility] HospitalComment on above:Performed By: #### DDIM #### [facility] [address] [place] [address] Dr. Jd Lester #0.01 10e3/ulNormal0.00-0.03The [facility] HospitalComment on above:Performed By: #### DDIM #### [facility] [address] [place] [address] Dr. dJ Lester %0.3 %Normal0.0-0.5The [facility] HospitalComment on above: Performed By: #### DDIM #### [facility] [address] [place] [address] Dr. Jd Parrish #1.0 103/ulCritically low1.2-3.8The [facility] Comment on above:Performed By: #### DDIM #### [facility] [address] [place] [address] Dr. Jd Carsonhocytes/100 WBC (Bld)26.1 %Ctolju15.5-60.0The [facility] HospitalComment on above:Performed By: #### DDIM #### [facility] [address] [place] [address] Dr. Jd Alatorre DIFF REQNONormalThe [facility] HospitalComment on above: Performed By: #### DDIM #### [facility] [address] [place] [address] Dr. Jd Jewell (RBC) [Entitic mass]29.1 hoNttgjg91.7-34.0The [facility] HospitalComment on above:Performed By: #### DDIM #### [facility] [address] [place] [address] Dr. Jd Clemons (RBC) [Mass/Vol]34.4 g/rWPrvlud01.9-35.2The [facility] HospitalComment on above:Performed By: #### DDIM #### [facility] [address] [place] [address] Dr. Yilan ChangMCV (RBC) [Entitic vol]84.5 vFFhruis38.0-99.0The [facility] Hospitalment on above:Performed By: #### DDIM #### [facility] [address] [place] [address] Dr. Jd Nair #0.4 103/ulNormal0.3-0.8The [facility] HospitalComment on above:Performed By: #### DDIM #### [facility] [address] [place] [address] Dr. Jd Parksocytes/100 WBC (Bld)11.0 %Normal1.7-12.0The [facility] Comment on above:Performed By: #### DDIM #### [facility] [address] [place] [address] Dr. Jd Frausto #2.1 103/ulNormal1.4-6.5The [facility] HospitalComment on above:Performed By: #### DDIM #### [facility] [address] [place] [address] Dr. Jd Wuutrophils/100 WBC (Bld)57.4 %Cxosor95.0-75.0The [facility] HospitalComment on above:Performed By: #### DDIM #### [facility] [address] [place] [address] Dr. Jd Samuelslet mean volume (Bld) [Entitic vol]11.2 fLNormal9.5-13.5The [facility] HospitalComment on above:Performed By: #### DDIM #### [facility] [address] [place] [address] Dr. Jd HumphreyPLT106 103/ulCritically hub153-076Mhm [facility] HospitalComment on above:Performed By: #### DDIM #### [facility] [address] [place] [address] Dr. Jd HumphreyRBC4.40 106/ulNormal4.20-5.40The [facility] Hospitalment on above:Performed By: #### DDIM #### [facility] [address] [address] [address] Jd HumphreyWBC3.6 103/ulCritically low4.0-11.0The [facility] HospitalComment on above:Performed By: #### DDIM #### [facility] [address] [place] [address] Dr. Jd HumphreyPOINT OF CARE GLUCOSEon 13-89-7648Cpxwjcj [Mass/Vol]95 mg/dL Bvmvcb62-289Gra [facility] HospitalComment on above:Performed By: #### BMP #### [facility] [address] [place] [address] Dr. Jd HumphreyGlucose [Mass/Vol]78 mg/dPRumprk81-873Llx [facility] Comment on above:Performed By: #### POCGLUC #### [facility] [address] [place] [address] Dr. Jd HumphreyGlucose [Mass/Vol]94 mg/xHYiuxao73-027Pbu [facility] Comment on above:Performed By: #### POCGLUC #### [facility] [address] [place] [address] Dr. Jd HumphreyGlucose [Mass/Vol]94 mg/iGLldrmp20-070FqqFire[facility] Center Comment on above:Performed By: #### DDIM #### [facility] [address] [place] [address] Dr. Jd HumphreyPROF CHEM 8 (BAS METB)on 66-52-6522Jpmql gap [Moles/Vol]6.1 mmol/LNormalThe [facility] HospitalComment on above:Performed By: #### BMP #### [facility] [address] [place] [address] Dr. Jd HumphreyCalcium [Mass/Vol]8.2 mg/dLCritically low8.5-10.1The [facility] HospitalComment on above:Performed By: #### BMP #### [facility] [address] [place] [address] Dr. Jd HumphreyChloride [Moles/Vol]109 mmol/LCritically mrkx13-282Dwl [facility] HospitalComment on above:Performed By: #### BMP #### [facility] [address] [address] [address] Jd HumphreyCO2 [Moles/Vol]26.4 mmol/JMgqbdo77.0-32.0The [facility] Comment on above:Performed By: #### BMP #### [facility] [address] [address] [address] Jd HumphreyCreatinine [Mass/Vol]0.60 mg/dLNormal0.55-1.02The [facility] HospitalComment on above:Performed By: #### BMP #### [facility] [address] [address] [address] Miles ChangEGFR-AF FILIPINO>60Normal>=60The [facility] HospitalComment on above:Performed By: #### BMP #### [facility] [address] [address] [address] dJ DiggsGFR-NON AF FILIPINO>60Normal>=60The [facility] HospitalComment on above:Performed By: #### BMP #### [facility] [address] [address] [address] Jd HumphreyGlucose [Mass/Vol]97 mg/fUKqevmk16-319VfdFirelands [facility] Center Comment on above:Performed By: #### BMP #### [facility] [address] [place] [address] Dr. Jd HumphreyPotassium [Moles/Vol]3.5 mmol/LNormal3.5-5.1The [facility] Comment on above:Performed By: #### BMP #### [facility] [address] [address] [address] Jd HumphreySodium [Moles/Vol]138 mmol/QWvskaw518-581Gkn [facility] Comment on above:Performed By: #### BMP #### [facility] [address] [address] [address] Jd HumphreyUrea nitrogen [Mass/Vol]12.0 mg/dLNormal7.0-18.0The [facility] HospitalComment on above:Performed By: #### BMP #### [facility] [address] [place] [address] Dr. Jd Yeager nitrogen/Creatinine [Mass ratio]20.0 mg/mgCleveland Clinic Akron GeneralComment on above:Performed By: #### BMP #### [facility] [address] [place] [address] Dr. Jd HumphreyXR CSPINE OBL FLEX_EXTon 48-43-1800WZ CSPINE OBL FLEX_EXT EXAMINATION: XR CSPINE OBL [...] Electronically authenticated by: TAMIKO BYNUM Date: 2021-12-29 08:48[facility] W MANUAL DIFFon [id number] LYMPH #0.00 103/ulNormal The [facility] HospitalComment on above:Performed By: #### CXWND #### [facility] [address] [place] [address] Dr. Jd HumphreyATYPICAL LYMPH %0 %NormalThe [facility] HospitalComment on above: Performed By: #### CXWND #### [facility] [address] [place] [address] Dr. Jd Lan #Normal0.0-0.3The [facility] HospitalComment on above: Performed By: #### CXWND #### [facility] [address] [place] [address] Dr. Jd Lan %Normal0-5The [facility] HospitalComment on above:Performed By: #### CXWND #### [facility] [address] [place] [address] Dr. Jd Ramos #0.00 103/ulNormal0.00-0.10The [facility] HospitalComment on above:Performed By: #### CXWND #### [facility] [address] [place] [address] Dr. Jd Ramos %0.0 %Critically low0.2-2.0The [facility] HospitalComment on above:Performed By: #### CXWND #### [facility] [address] [place] [address] Dr. Jd HumphreyBLAST #NormalThe [facility] HospitalComment on above:Performed By: #### CXWND #### [facility] [address] [place] [address] Dr. Jd HumphreyBLAST %NormalThe [facility] HospitalComment on above:Performed By: #### CXWND #### [facility] [address] [place] [address] Dr. Jd HumphreyCORRECTED WBCNormal4.0-11.0The [facility] HospitalComment on above: Performed By: #### CXWND #### [facility] [address] [place] [address] Dr. Jd Bui #0.14 103/ulNormal0.00-0.70The [facility] HospitalComment on above:Performed By: #### CXWND #### [facility] [address] [place] [address] Dr. Jd Bui%2.0 %Normal0.9-7.0The [facility] HospitalComment on above: Performed By: #### CXWND #### [facility] [address] [place] [address] Dr. Jd HumphreyHCT46.0 %Owujyx55.0-48.0The [facility] HospitalComment on above: Performed By: #### CXWND #### [facility] [address] [place] [address] Dr. Jd HumphreyHGB15.8 g/oxXdxdlx26.0-16.0The [facility] HospitalComment on above: Performed By: #### CXWND #### [facility] [address] [place] [address] Dr. Jd Ordaz #0.69 103/ulCritically low1.20-3.80The [facility] Comment on above:Performed By: #### CXWND #### [facility] [address] [place] [address] Dr. Jd Ordaz%10.0 %Critically low20.5-60.0The [facility] HospitalComment on above:Performed By: #### CXWND #### [facility] [address] [place] [address] Dr. Jd ClemonsH28.8 vgUijhte00.7-34.0The [facility] HospitalComment on above: Performed By: #### CXWND #### [facility] [address] [place] [address] Dr. Jd ClemonsHC34.3 g/vrXeojip71.9-35.2The [facility] HospitalComment on above:Performed By: #### CXWND #### [facility] [address] [place] [address] Dr. Jd ClemonsV83.8 qWRebmep20.0-99.0The [facility] HospitalComment on above: Performed By: #### CXWND #### [facility] [address] [place] [address] Dr. Jd LeachOCYTE #NormalThe [facility] HospitalComment on above: Performed By: #### CXWND #### [facility] [address] [place] [address] Dr. Jd LeachOCYTE %NormalThe [facility] HospitalComment on above: Performed By: #### CXWND #### [facility] [address] [place] [address] Dr. Jd Vasquez#0.48 103/ulNormal0.30-0.80The [facility] HospitalComment on above:Performed By: #### CXWND #### [facility] [address] [place] [address] Dr. Jd Vasquez%7.0 %Normal1.7-12.0The [facility] HospitalComment on above: Performed By: #### CXWND #### [facility] [address] [address] [address] Jd LopezV11.2 fLNormal9.5-13.5The [facility] HospitalComment on above: Performed By: #### CXWND #### [facility] [address] [address] [address] Jd RichardsonOCYTE #NormalThe [facility] HospitalComment on above:Performed By: #### CXWND #### [facility] [address] [address] [address] Jd RichardsonOCYTE %NormalThe [facility] HospitalComment on above:Performed By: #### CXWND #### [facility] [address] [place] [address] Dr. Jd HumphreyNRBCNormalThe [facility] HospitalComment on above:Performed By: #### CXWND #### [facility] [address] [place] [address] Dr. Jd CarsonT168 103/khYkhlgh831-029Ibd [facility] HospitalComment on above: Performed By: #### CXWND #### [facility] [address] [place] [address] Dr. Jd HumphreyRBC5.49 106/ulCritically high4.20-5.40The [facility] on above:Performed By: #### CXWND #### [facility] [address] [place] [address] Dr. Jd HumphreyRDW12.1 %Dvpiue33.0-15.0The [facility] HospitalComment on above: Performed By: #### CXWND #### [facility] [address] [place] [address] Dr. Jd Malone #5.59 103/ulNormal1.40-6.50The [facility] HospitalComment on above:Performed By: #### CXWND #### [facility] [address] [place] [address] Dr. Jd Malone %81.0 %Critically high43.0-75.0The [facility] HospitalComment on above:Performed By: #### CXWND #### [facility] [address] [address] [address] Jd HumphreyWBC6.9 103/ulNormal4.0-11.0The [facility] HospitalComment on above: Performed By: #### CXWND #### [facility] [address] [address] [address] Jd HumphreyCRPon 72-02-9086VJK4.7 mg/dLCritically high<=1.0The [facility] HospitalComment on above:Performed By: #### POCGLUC #### [facility] [address] [place] [address] Dr. Jd HumphreyCT LOWER LEG RT W CONon 20-25-0283KM LOWER LEG RT W CON EXAMINATION: CT LOWER LEG RT W CON HISTORY: Ulcer of [...] first distal phalanx is not in the fszmv-am-nkgs SOFT TISSUES: Moderate soft tissue swelling primarily [...] Electronically authenticated by: TAMIKO BYNUM Date: 2021-12-28 15:[address] [place], [place] [address]CULTURE BLOODon 33-30-4823Rnclugiutfx examination of blood, cultureCulture Observations: NO GROWTH AT 5 DAYS.NormalThe [facility] HospitalComment on above:Performed By: #### BLDCX2 #### [facility] [address] [place] [address] Dr. Jd HumphreyMicroscopic examination of blood, cultureCulture Observations: NO GROWTH AT 5 DAYS.NormalThe [facility] HospitalComment on above:Performed By: #### BMP #### [facility] [address] [place] [address] Dr. Jd HumphreyCovid-19 PCR (CVDTB)on 85-85-3076BDCN-CoV-2 (COVID-19) RNA SHEILA+probe Ql (Unsp spec)Not detectedNormalNOT DETECTEDThe [facility] Comment on above:Result Comment: When diagnostic testing is negative, the [...] for this test is supported by the [employer] Developer of Health and Human Service's declaration that circumstances exist to justify the emergency use of in vitro diagnostics for the detection and/or diagnosis of the virus that causes COVID-19. This EUA will remain in effect for the duration of the COVID-19 declaration justifying emergency of IVDs, unless it is terminated or revoked by the FDA (after which the test may no longer be used).Performed By: #### CVDTBH #### [facility] [address] [place] [address] Dr. Jd HumphreyLACTATE/LACTIC ACIDon 31-95-1526Mdupypx [Moles/Vol]1.6 mmol/L Normal0.4-1.9The [facility] HospitalComment on above:Performed By: #### DDIM #### [facility] [address] [place] [address] Dr. Jd Johnsonctate [Moles/Vol]2.3 mmol/LCritically high0.4-1.9The [facility] HospitalComment on above:Performed By: #### DDIM #### [facility] [address] [address] [address] Jd HumphreyPOINT OF CARE GLUCOSEon 59-37-7181Wtvzpdw [Mass/Vol]107 mg/dL Critically siir84-064Aan [facility] HospitalComment on above:Performed By: #### BMP #### [facility] [address] [address] [address] Jd HumphreyGlucose [Mass/Vol]96 mg/pKTmuzfw66-375Qfn [facility] Comment on above:Performed By: #### CXWND #### [facility] [address] [place] [address] Dr. Jd HumphreyPROF 14(COMP METB)on 75-18-6272Qynxqcy [Mass/Vol]4.0 g/dLNormal 3.4-5.0The [facility] HospitalComment on above:Performed By: #### POCGLUC #### [facility] [address] [address] [address] Jd HumphreyAlbumin/Globulin [Mass ratio]1.4 {ratio}NormalThe [facility] HospitalComment on above:Performed By: #### POCGLUC #### [facility] [address] [place] [address] Dr. Jd Tran [Catalytic activity/Vol]102 U/MChibhz63-019Gfo [facility] HospitalComment on above:Performed By: #### POCGLUC #### [facility] [address] [address] [address] Jd Leyva [Catalytic activity/Vol]21 U/KLulqek54-13Hul [facility] HospitalComment on above:Performed By: #### POCGLUC #### [facility] [address] [place] [address] Dr. Jd Galvan gap [Moles/Vol]17.6 mmol/LNormalThe [facility] Comment on above:Performed By: #### POCGLUC #### [facility] [address] [address] [address] Jd HumphreyAST [Catalytic activity/Vol]19 U/GUucswr29-22Lez [facility] HospitalComment on above:Performed By: #### POCGLUC #### [facility] [address] [address] [address] Jd HumphreyBilirubin [Mass/Vol]0.8 mg/dLNormal0.2-1.0[facility] Comment on above:Performed By: #### POCGLUC #### [facility] [address] [address] [address] Jd HumphreyCalcium [Mass/Vol]9.2 mg/dLNormal8.5-10.1[facility] Comment on above:Performed By: #### POCGLUC #### [facility] [address] [address] [address] Jd HumphreyChloride [Moles/Vol]103 mmol/PRbfdxd65-352Omw [facility] Comment on above:Performed By: #### POCGLUC #### [facility] [address] [address] [address] Jd HumphreyCO2 [Moles/Vol]25.2 mmol/AYluley29.0-32.0The [facility] Comment on above:Performed By: #### POCGLUC #### [facility] [address] [address] [address] Jd HumphreyCreatinine [Mass/Vol]0.69 mg/dLNormal0.55-1.02The [facility] HospitalComment on above:Performed By: #### POCGLUC #### [facility] [address] [address] [address] Jd DiggsGFR-AF FILIPINO>60Normal>=60The [facility] HospitalComment on above:Performed By: #### POCGLUC #### [facility] [address] [address] [address] Jd DiggsGFR-NON AF FILIPINO>60Normal>=60The [facility] HospitalComment on above:Performed By: #### POCGLUC #### [facility] [address] [address] [address] Jd HumphreyGlobulin (S) [Mass/Vol]2.9 g/dLNormCleveland Clinic Children's Hospital for RehabilitationComment on above:Performed By: #### POCGLUC #### [facility] [address] [address] [address] Jd HumphreyGlucose [Mass/Vol]189 mg/dLCritically yjdf13-666Lav [facility] HospitalComment on above:Performed By: #### POCGLUC #### [facility] [address] [address] [address] Jd HumphreyPotassium [Moles/Vol]3.8 mmol/LNormal3.5-5.1[facility] Comment on above:Performed By: #### POCGLUC #### [facility] [address] [address] [address] Jd HumphreyProtein [Mass/Vol]6.9 g/dLNormal6.4-8.2[facility] Comment on above:Performed By: #### POCGLUC #### [facility] [address] [address] [address] Jd HumphreySodium [Moles/Vol]142 mmol/XLqstqk826-668Lrv [facility] Comment on above:Performed By: #### POCGLUC #### [facility] [address] [address] [address] Jd HumphreyUrea nitrogen [Mass/Vol]16.0 mg/dLNormal7.0-18.0The [facility] HospitalComment on above:Performed By: #### POCGLUC #### [facility] [address] [address] [address] Jd Yeager nitrogen/Creatinine [Mass ratio]23.2 mg/mgNoCleveland Clinic Marymount HospitalComment on above:Performed By: #### POCGLUC #### [facility] [address] [address] [address] Jd Bhat RATE WESTERGRENon 80-68-0464NKA RATE20 mm/hrNormal<=30The [facility] HospitalComment on above:Performed By: #### BMP #### [facility] [address] [place], [place] [address] Dr. Jd HumphreyGLUCOSE-[facility] 71-17-7961Ldpmnzm [Mass/Vol]126 mg/kSAdlw22 - 99 [facility] GastroenterologyC[facility] Work Phone: Comment on above:Performed By: #### GLUPO #### [facility] [address] [place], [place] [address]Haekdvh [id number] SOUMYA ABDI Pathologist: RAFAELA BENSON MDDate of Procedure: 11/04/2018Date Received: 11/04/2018Date Reported 11/06/2018Submitting Physician: RENAE LAWRENCE M.D.Location: Copy To/Referring/Attending:RENAE LAWRENCE M.D. Other External # FINAL DIAGNOSISA. [...] specimen is submitted in toto in one cassette.LMPlmp/11/05/2018[facility] GastroenterologyC[facility] Work Phone: Patient Name: Soumya AbdiProcedure Date: 11/04/2018 2:50 PMMRN: [id number] Number: [id number] of : 8Admit Type: OutpatientSite: [facility] 1Ethnicity: Not orLatinoRace: UnknownAttending MD: Renae Lawrence , MDProcedure: Upper GI endoscopyIndications: Cirrhosis rule out esophageal varicesPatient Profile: This is a 58 year old female. Outpatient EGDProviders: Renae Lawrence MD (Doctor), Jaleel Perez RN (Nurse), Tyler Mai, Diagnostic TechReferring: Jeronimo Mei Care Team: Ludwin Wen II, [facility]ARREN HOSPITALedicines: Monitored Anesthesia CareComplications: No immediate complications.Procedure: Pre- Anesthesia Assessment: - Prior to theprocedure, a History and Physical was performed, and [...] pressure, pulse, and oxygen saturations were monitored yesenia nuously. The Endoscope was introduced through the mouth, [...] as previously scheduled.Procedure Code(s): --- Professional --- 98613, Esophagogastroduodenoscopy,flexible, transoral; with biopsy, single or multipleDiagnosis Code(s): --- Professional --- K29.70, Gastritis, unspecified, without bleeding K74.60, Unspecified cirrhosis of liverCPT copyright 2017 [employer]. All rights reserved.The codes documented in this report are preliminaryand upon degreasing solution reclaimer review may be revised to meet current compliance requirements.Renae Lawrence MD11/04/2018 3:24:18 PMThis report has been signed electronically.Number of Addenda: 0Notmisael Initiated On: 11/04/2018 2:50 PMTotal Procedure Duration Time 0 hours 9 minutes 17 seconds Estimated Blood Loss: Estimated blood loss: none.[facility] GastroenterKawe[facility] Center Work Phone: [email or web address]}[facility] Work Phone: AFP (Tumor Marker)on 22-77-0432UUZ (Tumor Marker)3 ng/mLNormal0-9EMH HealthcareComment on above:Result Comment: AFP testing is performed by chemiluminescent immunoassay using the Siemens Advia Drawn to Scaleaur. Values obtained with different analyte methods cannot be used interchangeably. This test can be used as an adjunct in the diagnosis and monitoring of AFP-producing tumors, including non-seminomatous germ cell tumors and hepatocellular carcinomas.Uzyfc-9-Awzxsnfntph, Totalon 00-89-5432Evcwq-1-Antitrypsin, Bklpd881 mg/uARsqsum97-859MNF HealthcareAnti- Nuclear Ab Titer w/CHARLENE Panelon 07-81-8128Yohp-Nuclear Ab (MICHAEL) PatternSPECKLED NormalEMH HealthcareAnti-Nuclear Ab Titer1:40NormalEMH HealthcareCeruloplasminon 99-54-4069Hcnjdyobnuuvl04 mg/bXJjbvmu66-24BCO HealthcareExtractable Nuclear Ag, Abson 85-15-7381Rzdoerqeax (CHARLENE) Ab, IgG<0.2NormalEMH HealthcareComment on above:Result Comment: REF VALUES < 1.0 = NEGATIVE >=1.0 = POSITIVEChromatin (CHARLENE) Ab, IgG<0.2NormalEMH HealthcareComment on above: Result Comment: REF VALUES < 1.0 = NEGATIVE >=1.0 = POSITIVEdsDNA Ab, IgG<1.0NormalEMH HealthcareComment on above:Result Comment: REF VALUES NEGATIVE: <= 4 IU/ML EQUIVOCAL: 5- 9 IU/ML POSITIVE: >=10 IU/MLJO-1 (CHARLENE) Ab, IgG<0.2NormalEMH HealthcareComment on above: Result Comment: REF VALUES < 1.0 = NEGATIVE >=1.0 = POSITIVERibonucleic Prot (CHARLENE) Ab, IgG<0.2NormalEMH HealthcareComment on above:Result Comment: REF VALUES < 1.0 = NEGATIVE >=1.0 = POSITIVERibosomal P Prot (CHARLENE) Ab, IgG<0.2NormalEMH HealthcareComment on above:Result Comment: REF VALUES < 1.0 = NEGATIVE >=1.0 = POSITIVEScleroderma (Scl-70) (CHARLENE) Ab, IgG<0.2NormalEMH Healthcare Comment on above:Result Comment: REF VALUES < 1.0 = NEGATIVE >=1.0 = POSITIVESmith (CHARLENE) Ab, IgG<0.2NormalEMH HealthcareComment on above: Result Comment: REF VALUES < 1.0 = NEGATIVE >=1.0 = POSITIVESmith/QUALITY CONTROL HEAD (CHARLENE) Ab, IgG<0.2NormalEMH HealthcareComment on above: Result Comment: REF VALUES < 1.0 = NEGATIVE >=1.0 = POSITIVESSA (Ro) (CHARLENE) Ab, IgG<0.2NormalEMH HealthcareComment on above: Result Comment: REF VALUES < 1.0 = NEGATIVE >=1.0 = POSITIVESSB (La) (CHARLENE) Ab, IgG<0.2NormalEMH HealthcareComment on above: Result Comment: REF VALUES < 1.0 = NEGATIVE >=1.0 = POSITIVEFerritinon 70-64-2416Ousbtmqp mass qtdp086 ng/mLNormal8-150EMH HealthcareComment on above:Performed By: #### [id number] #### [facility] [place] [facility] [address] [place], [place] [address]Cpmmeha Function Panelon 64-62-3448Tbsxvti mass conc4.0 g/dL Normal3.4-5.0EMH HealthcareComment on above:Performed By: #### [id number] #### [facility] [place] [facility] [address] [place], [place] [address]Yxpbmdl/Globulin mass ratio1.7 {ratio}Normal0.9-2.4EMH HealthcareComment on above:Performed By: #### [id number] #### [facility] [place] [facility] [address] [place], [place] [address]DXO enzyme act/vol94 U/QFsnksr23-392OLB HealthcareComment on above:Performed By: #### [id number] #### [facility] [place] [facility] [address] , [place] [address]TJS enzyme act/vol15 U/LNormal7-45EMH HealthcareComment on above:Performed By: #### [id number] #### [facility] [place] [facility] [address] [place], [place] [address]QTR enzyme act/vol14 U/KVpdgyi45-97AHJ HealthcareComment on above:Performed By: #### [id number] #### [facility] [place] [facility] [address] [place], [place] [address]Mzluzoieo mass conc0.7 mg/dLNormal0.0-1.2EMH HealthcareComment on above:Performed By: #### [id number] #### [facility] [place] [facility] [address] [place], [place] [address]Gdslssvvq.direct mass conc0.1 mg/dLNormal0.0-0.3[facility] Comment on above:Performed By: #### [id number] #### [facility] [place] [facility] [address] [place], [place] [address]Ayaphlm mass conc6.3 g/dLLow6.4-8.2EMH HealthcareComment on above:Performed By: #### [id number] #### [facility] [place] [facility] [address] [place], [place] [address]Emysuwdsm A Total Abon 72-48-1672Wapezgzjm A Total AbREACTIVE AbnormalNONREACTIVEEMH HealthcareComment on above:Result Comment: Patients receiving more than 5 mg/day of biotin may have interf in test results. A sample should be taken no sooner than eight after previous dose. Contact [phone] for additional inforIron Profileon 48-54-0004Doll Binding Ontjqdvz112 ug/lGEdjvzv361-462DHU HealthcareComment on above:Performed By: #### [id number] #### [facility] [place] [facility] [address] [place], [place] [address]Abku mass udxk756 ug/sAFwxggu90-130VVU HealthcareComment on above:Performed By: #### [id number] #### [facility] [place] [facility] [address] [place], [place] [address]Duxlpdg Ppzuqmxypb86 %Fwhp03-55XRX HealthcareComment on above: Performed By: #### [id number] #### [facility] [place] [facility] [address] [place], [place] [address]Temkarw Iron Binding Zkbufqxs026 ug/oGKdggsx08-681AYN Healthcare Comment on above:Performed By: #### [id number] #### [facility] [place] [facility] [address] [place] [address]Wqrcbpfpeksip M2 Ab, IgGon 84-56-7513Risccomnvyqqe M2 Ab, IgG4.7 UnitsNormal0.0-20.0EMH HealthcareComment on above:Result Comment: INTERPRETIVE INFORMATION: Mitochondrial (M2) Antibody, IgG 20.0 Units or less ......... Negative 20.1 - 24.9 Units........... Equivocal 25.0 Units or greater....... Positive Performed by [facility], [address] [place] [address] [email or web address], Bran Sales MD - Lab. DirectorPerformed By: #### [id number] #### [facility] [address] [place], [place] [address]Jdmxezbhveh Timeon 76-64-3906WTR Coag RelTime (PPP)1.14 {INR}High0.90-1.10EMH HealthcareComment on above:Performed By: #### [id number] #### [facility] [address] [place], [place] [address]Yxghcvumlrr time (PT) Coag time (PPP)12.9 sHigh9.7-12.7EMH HealthcareComment on above:Result Comment: PLEASE NOTE NEW REFERENCE RANGE EFFECTIVE 2018Performed By: #### [id number] #### [facility] [address] [place] [address]Wooero Muscle (F-Actin) IgG w/Rfxon 08-97-1669Lgjgfg Muscle Ab, IgGPositiveNormalNEGATIVEEMH HealthcareSmooth Muscle Ab, IgG Titer1:20NormalEMH HealthcareCNOVon 30-39-9638UPAFTitkbv Visit ([facility]) --------SOUMYA ABDI ([id number]) 1960 FDate Time Provider Department09/13/17 12:30 PM KELLY DAVIDSON (PROJECT INSPECTOR) [facility] During your visit today, we recorded the following information about you: Blood pressure Weight Height 100/60 101.6 kg 1.676 mMgillian Davidson CNP 09/13/2017 3:50 PM Dax Abdi is a 57 year old female who presents for a 6 Week post-op checks/p Excision of vaginal portion of retropubic mid-urethral sling,Cystourethroscopy, Anterior and posterior repairs.Post-op complications:noBleeding: noPain: yes occasional sharp pains that come and go quickly, she thinks it may befrom the stichesAbnormal vaginal discharge: noUrinary incontinence: yes, but not as bad as before. Stress-a small amountoccasionally. Urge- Sometimes she can't get to the bathroom fast enough~ incontinenceis even less now than it was prior to the slingVoiding dysfunction: noUrinary frequency: noUrinary urgency: noProlapse symptoms: yes , sometimes stool is still getting stuck she has tooccasionally splint. This happens when she forgets to take MiralaxDefecatory dysfunction: noFecal incontinence: Laura Menard, RNOBJECTIVE:BP 100/60 Ht 5' 6ANDquot; (1.68m) Wt 224 lb (101.6kg) BMI 36.17 kg/(m2).General: Well appearing, alert, in no acute distress, well-hydrated, wellnourished.Abdomen: Normal abdominal examPelvic:Ext. Genitalia, WNLVagina: Ant wall, WNL; Post wall, WNL; Roosevelt, WNL -- sutures along anteriorwall healing without signs of infectionCervix: AbsentUrethra: NormalBimanual: slight tendernessRectovaginal: No tenderness, No massesPLAN:Stable post-op doing well, resume normal acti vities.,May resume intercourse, in 2-3 weeksOkay to restart vaginal estrogen (may apply with finger)F/U with Dr. Parks in 4 monthsEducation and counseling provided regarding lifting restrictions, exercise andbathing. Patient acknowledged understanding.Kelly Davidson CNPReferring Provider: ELENA PARKS [[id number]]Allergies As of Date: 09/13/2017 Noted Allergy ReactionLEVAQUIN (LEVOFLOXACIN) 08/04/2013 2 - RashDate Reviewed: 09/13/2017Reviewed by: Kelly ([facility]) Jorge - Fully AssessedReason for Visit: Post Op [174]Primary Visit Diagnosis:Follow-up examination following surgery [Z09]Prescriptions as of 09/13/2017 Sig: PREGABALIN 200 MG CAPSULE Take 200 mg by mouth three ti* EXENATIDE ER2 MG SUBCUTANEOU* Inject subcutaneously once e* DOCUSATE SODIUM 100 MG CAPSULE Take 100 mg by mouthonce leana* VARENICLINE 1 MG TABLET Take 1 mg by mouth twice dima* GLIMEPIRIDE 4 MG TABLET Take 4 mg by mouth twice dima* LEFLUNOMIDE 20 MG TABLET Take 20 mg by mouth once dima* ROSUVASTATIN 20 MG TABLE T Take 20 mg by mouth once dima* [...] TIZANIDINE 4 MG TABLET twice daily. FUROSEMIDE 20MG TABLET once daily. * COMPOUNDED PRESCRIPTION rotuxin [...] * REQUIP 0.5 MG TABLET 2 mg daily* COMPOUNDED PRESCRIPTION CALCIUM 1200MG PLUS VITAMIN D* * SINEMET CR 25 MG-100 MG TABLE* 2 tabs atHSMedication notes this encounter ESTRADIOL 0.01% (0.1 MG/GRAM) VAGINAL CREAM >> Colleen Menard, RN, RN 09/13/2017 12:03 PM >> COLLEEN MENARD [facility] Sep 13, 2017 12:03 PM Not using since surg eryProblem List As Of Date 09/13/2017 Noted Resolved [...] More... Migraine [G43.909] DDD (degenerative disc disease) [ADC5135] Lumbar radiculopathy [M54.16] Cervical radiculopathy [M54.12] Peripheral neuropathy [G62.9] Smoker [F17.200] Anxiety and depression [F41.8] INVALID FOR* Urinary incontinence [R32] INVALID FOR* Chronic pain [G89.29] MISA (stress urinary incontinence, female)[N39.*INVALID FOR* More... Erosion of vaginal mesh ([facility]) [T83.711A] INVALID FOR*08/03/2017 More... Status:Closed by KELLY DAVIDSON CNP on 09/13/17[facility] PROGRESSon 11-74-6889DWRSXCXWJDP ID: [id number]: Kelly (Brant) JorgeService: (none)Author Type: Nurse PractitionerType: Progress NotesFiled: 09/13/2017 3:50 PMNote Text:Soumya Abdi is a 57 year old female who presents fo r a 6 Week post-opcheck s/p Excision of vaginal portion of retropubic mid- urethral sling,Cystourethroscopy, Anterior and posterior repairs.Post-op complications: noBleeding: noPain: yes occasional sharp pains that come and go quickly, she thinks itmay be from the stichesAbnormal vaginal discharge: n oUrinary incontinence: yes, but not as bad as [...] Well appearing, alert, in no acute distress, well- hydrated, wellnourished.Abdomen: Normal abdominal examPelvic:Ext. Genitalia, WNLVagina: Ant wall, WNL; Post wall, WNL; Roosevelt, WNL -- sutures alonganterior wall healing without signs of infectionCervix: AbsentUrethra: NormalBimanual: slight tendernessRectovaginal: No tenderness, No massesPLAN:Stable post-op doing well, resume normal activities.,May resume intercourse, in 2-3 weeksOkay to restart vaginal estrogen (may apply with finger)F/U with Dr. Parks in 4 monthsEducation and counseling provided regarding lifting restrictions, exerciseand bathing. Patient acknowledged understanding.Kelly Davidson, PROJECT INSPECTOR NormalCleveland Clinic [facility] Metabolic Panlon 65-35-7747Pnqgs gap14 mmol/LNormal9-18[facility] on above:Performed By: #### JINNY, BMP ####[place] [address] [address]CAlex[address] [phone] mg/dLNormal8.5-10.2CBethesda North Hospital on above:Performed By: #### JINNY BMP ####[address] [place] [address] [address]CA[address] [phone] mmol/KKhroxc13-865 [facility] on above:Performed By: #### JINNY, BMP ####[address] [place] [address] [address]CA[address] [id number] AC167 mmol/UUylejl39-70OqlramvgxMercy Healthment on above: Performed By: #### JINNY, BMP ####[address] [place] [address] [address]CA[address] [phone] mg/dLNormal0.58-0.96[facility] on above:Performed By: #### JINNY, BMP ####[address] [place] [address] [address]CAlexis [address] [phone] (non-black)mL/min/{1.73_m2}[facility] on above: Performed By: #### JINNY, BMP ####[place] [address] [address]CAlex[address] [phone] Comment: eGFR (Estimated GFR) Units of measure: mL/min/1.73 meters squaredeGFR is derived from the reexpressed MDRD Study equation using the following parameters: serum creatinine, age, genderand race. The creatinine assay has been calibrated to be traceable to IDMS.An eGFR <60 mL/min/1.73m2 for >3 months is consistent with chronic kidney disease. Refer to KDOQI guidelines for clinical interpretation.In patients with unstable renal function, e.g. those with acute kidney injury, the eGFR may not accurately reflect actual GFR.Glucose mass xobz925 mg/bVRuaa59-22IxjdtockrBlanchard Valley Health System Comment on above:Result Comment: The [place] Diabetes Association (ADA) provides guidance for cutoff [...] unequivocal hyperglycemia, results should be confirmed by repeattesting. In a patient with classic symptoms of hyperglycemia or hyperglycemic crisis, random plasmaglucose results greater than or equal to 200 mg/dL meet the criteria for diagnosis of diabetes.Reference: Standards of Medical Care in Diabetes 2016, [place] Diabetes Association. Diabetes Care. 2016.39(Suppl 1).Performed By: #### CBCDIF BMP ####[facility] [address]ygitwhibi[address] [phone] Drkezoalv molar conc3.5 mmol/LLow3.7-5.1CPremier Health Upper [facility] Comment on above:Performed By: #### CBCDIF, BMP ####[facility] Glwrotusamdp5000 Clarkrange AveCPort Sulph[place], [place] [phone] mmol/L Coyhot729-762HhcwzfnkzBlanchard Valley Health SystemComment on above:Performed By: #### CBCDIF, BMP ####[facility] Zeqtqmlbjevy32[address] Clarkrange AveCPort Sul[place], [place] [phone] xhsngxyp24 mg/dLNormal7-21[facility] Comment on above:Performed By: #### CBCDIF, BMP ####[facility] Sdqzmiktohqb23[address] Clarkrange AveCPort [place], [place] [phone] and Differential on 99-92-9273Nnu Baso0.06 k/uLNormal<0.11CBethesda North Hospital on above:Performed By: #### CBCKATE, BMP ####[place] [address] [address]CAlex[address] [phone] Mono0.60 k/uLNormal<0.87[facility] on above:Performed By: #### CBCKATE, BMP ####[address]And[address] [phone] Neut8.21 k/uLHigh1.45-7.50[facility] on above:Performed By: #### CBCKATE, BMP ####[address] [phone]/100 WBC Auto (Bld)0.6 %NormalSumma Health Akron Campus on above:Performed By: #### CBCKATE, BMP ####[address] [phone] DiffNormal [facility] on above:Performed By: #### CBCKATE, BMP ####[address] [phone] 10*3/uLNormal<0.46[facility] on above:Performed By: #### CBCKATE, BMP ####[address] [phone]/100 leukocytes1.3 %Normal [facility] on above:Performed By: #### CBCVICKYF, BMP ####[address] [phone] Ybjnsrunurz distribution width Auto Ratio (RBC)12.5 %Slalhj10.5-15.0 [facility] on above:Performed By: #### CBCKATE, BMP ####[place] [address] [address]CA[address] [phone] Iwkrkoxiyuxk (RBC)5.00 10*6/uLNormal3.90-5.20[facility] on above:Performed By: #### CBCDIF, BMP ####[place] [address] [address]CAlex[address] [phone] (RBC) 10*6/uLNormal<0.01[facility] on above:Performed By: #### CBCDIF, BMP ####[place] [address] [address]CAlex[address] [phone] (RBC)0.0 /100 IMMHsmclo7DcwhbcyafBlanchard Valley Health System Comment on above:Performed By: #### CBCDIF, BMP ####[place] [address] [address]CAlex[address] [phone] (HCT)44.7 %Vhqdeb17.0-46.0[facility] on above:Performed By: #### CBCDIF, BMP ####[place] [address] [address]CAlex[address] [phone] mass conc (Bld)15.2 g/kVDrjqwh50.5-15.5CBethesda North Hospital on above:Performed By: #### CBCDIF, BMP ####[place] [address] [address]CAlex[address] [phone] 1.48 10*3/uLNormal1.00-4.00[facility] on above:Performed By: #### CBCDIF, BMP ####[place] [address] [address]CA[address] [phone]/100 polqdkcuop85.1 %NormalSumma Health Akron Campus on above:Performed By: #### CBCDIF, BMP ####[place] [address] [address] [phone] pGNormal 26.0-34.0[facility] on above:Performed By: #### CBCDIF, BMP ####[address] [address] RVGT mass conc (RBC)34.0 g/eETwiaqg37.5-36.0[facility] on above:Performed By: #### CBCDIF, BMP ####[place] [phone] fLNormal 80.0-100.0[facility] on above:Performed By: #### CBCDIF, BMP ####[place] [address] Nvqqsjqbm/100 leukocytes5.7 %NormalSumma Health Akron Campus on above:Performed By: #### CBCDIF, BMP ####[place] [phone]/100 WBC Auto (Bld)78.3 % NormalSumma Health Akron Campus on above:Performed By: #### CBCDIF, BMP ####[place] [address] Rwlahqok mean volume (PMV)12.5 fLNormal9.0-12.7CBethesda North Hospital on above:Performed By: #### CBCDIF, BMP ####[place] [phone] 10*3/uL Wme769-877ZrezdvquaSumma Health Akron Campus on above:Performed By: #### CBCDIF, BMP ####[place] [phone] OAH (Leukocytes)10.49 10*3/uLNormal3.70-11.00[facility] Health SystemComment on above:Performed By: #### CBCDIF, [facility] ####[facility] [id number] [place], [place] [id number] PHYSICALon [id number] PHYSICALHNO ID: [id number]: Rosalva (Brant) EubankService: (none)Author Type: Nurse PractitionerType: HANDPFiled: 08/03/2017 6:43 AMNote Text:HISTORY AND PHYSICAL EXAMINATIONSERVICE DATE: 08/02/2017SERVICE TIME: 2:31 [facility]IAN: Ludwin Wen II, MDREASON FOR VISIT:Soumya Abdi is a 57 year old female who is scheduled for PAT at [facility] of Dr. Elena Parks for consultation. My final recommendationwill be communicated back to the requesting physician by way of sharedmedical record orletter.The patient has the following:ACTIVE PROBLEM LISTNonspecific Abnormal Findings On Radiological Or Other Examinations of TheBreastCoronary Atherosclerosis of Unspecified Type of Vessel, [place] Or GraftType II Or Unspecified Type Diabetes Mellitus Without Mention ofComplication, Not Stated As UncontrolledRheumatoid Arthritis (Hcc)Multiple Sclerosis (Hcc)Copd (Chronic Obstructive Pulmonary Disease) (Hcc)Htn (Hypertension)HyperlipidemiaCad (Coronary Artery Disease)Dm (Diabetes Mellitus) (Hcc)Djd (Degenerative Joint Disease)Sleep ApneaCva (Cerebral Infarction)DepressionRls (Restless Legs Syndrome)MigraineDdd (Degenerative Disc Disease)Lumbar RadiculopathyCervical RadiculopathyPeripheral Ne uropathySmokerAnxiety and DepressionUrinary IncontinenceChronic PainSui (Stress Urinary Incontinence, Female)Erosion of Vaginal Mesh (Hcc)SubjectiveCHIEF COMPLAINT: Hx of urinary sling/erosin, rectoceleHPI: 57 yr old female - CC above5/10-achy pain, cramping at times and becomes sharp, hx of sling w itherosin, has had the pain for awhile, worsening in the last six months, Nofever chills or nausea,no blood in urine or stool, urinary frequencyPAST MEDICAL HISTORYDiagnosis Date- Anxiety and depression- CAD (coronary artery disease) CAD: mild disease. LHC was 12/26/05: No intervention. stable- Cervical radiculopathy- Chronic pain- COPD (chronic obstructive pulmonary disease) ([facility] COPD- CVA (cerebral infarction) stoke- mini strokes- Depression depression- DJD (degenerative joint disease) degenerative joint disease- DM (diabetes mellitus) ([facility]) borderline diabetes- : on glucophage- History offusion of cervical spine- HTN (hypertension) Hypertension- Hyperlipidemia hyperlipidemia- Lumbar rad iculopathy- Migraine- Multiple sclerosis ([facility]) Multiple sclerosis- OAB (overactive bladder)- Obese-Peripheral neuropathy- Rectocele- Rheumatoid arthritis ([facility]) rheumatoid arthritis- RLS (restless legs syndrome) restless leg syndrome- Sleep apnea sleep apnea- Smoker- Urinary incontinencePAST SURGICAL HISTORYProcedure Laterality Date- ANTERIOR INTERBODY FUSION, [facility]; INCISIONAL 1998 right breast for cyst- COLONOSCOPY 2 or 3- EGD- PAST SURGICAL HISTORY OF 01/2005 [facility]- PAST SURGICAL HISTORY OF rectocele, vagicele with hyster- PAST SURGICAL HISTORY OF 2003,1997 tumor excion left elbow and right foot- PAST SURGICAL HISTORY OF 1961 T[facility] A- PAST SURGICAL HISTORY OFDANDC x 3 after childbirth- PAST SURGICAL HISTORY [...] mg capsule Take 200 mg by mouth threetimes daily. Yesexenatide (BYDUREON) 2 mg ER subcutaneous injection vial Injectsubcutaneously once each week. Yesdocusate sodium (COLACE) 100 mg capsule Take 100 mg by mouth once daily.Yesvarenicline(CHANTIX) 1 mg tablet Take 1 mg by mouth twice daily. Yesglimepiride (AMARYL) 4 mg tablet Take 4 mgby mouth twice daily withmeals. Yesleflunomide (ARAVA) 20 mg tablet Take 20 mg by mouth once daily.Yesrosuvastatin (CRESTOR) 20 mg tablet Take 20 mg [...] 2 tabs at HS YesNo medication comments found.ALLERGIES Allergen Reactions- Levaquin [Levofloxa* RashREVIEW OF SYSTEMS:PAIN ASSESSMENT: PainPain Score: 6/10Pain Location: Abdomen-Right Lower QuadrantDescription: SharpDuration Units: MonthsFrequency: ContinuousIntervention: MedicationGeneral: No weight loss, malaise or fevers.Neuro: Postive for hx of CVA, chronic pain, MS, RA, DJD,neck pain, backpain, neuropathy, RLS, hx of migraines - history of ministrokes, not overtCVA, no residual - Followed By Dr. Kiser, [facility] forMS-rituxin every6 months, last infusion- 04/18/ollowed by [facility] for RA- arava and plaquenil dailyRespiratory: + former smoker, chantix, COPD- with advair daily andalbuterol prn, flonase for allergies, WILLIAM with Bipap use -Denies recentURI, bronchitis or pneumoniaCardiovascular: + HLD, CAD- statesshe has some minor blockages butmedical management only recommended, states she says Dr Caraballo,Cardiology at [facility] 6 months ago but will be following up with someone new -most recent testing done at [facility]. Will request, will likelynot be back before procedure tomorrow. 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 Torres for RA,For MS Dr. Rashel Yanez, hx of cervical fusion, states hardware inneckSkin: Negative for lesions, rash and itching.ObjectivePHYSICAL EXAM:GENI LS:BP 113/67 Pulse 101 Temp (Src) 98.6 (Oral) [...] WBC 10.49 k/uL 08/02/2017 11.00 3.70PLT 144 k/ uL 08/02/2017 400 150 Lab Value Units Date High Low ABORHD A POSI* no uni* 08/02/2017 ABSCREEN NEG no uni* 08/02/2017EKG: Sinus tachycardia , HR 101 08/02/2017ASSESSMENTPatient has the following medical conditions which may affectperi-operative courseCAD - per self report, some minor blockage but medi marilyn management only,requested outside tests 08/02/2017HyperlipidemiaFormer smokerOSA BIPAPRA-ARAVA and PLAQUENIL- SEEN AT 240 PM day before surgery - no time tocontact provider for recommendations-MSChronic painDM- bydureon and amaryl/ DM NeuropathyOAB/Hx of bladder sling with problemrectoceleObeseHxof cervical fusion with hardwareMETS:Walk indoors, such as [...] a power mower (4.50METs)Climb a flight of stairsor walk up a hill (5.50 METs)Patient denies any chest pain or undue shortness of breath with the abovephysical activity.ASA Class: 3ANESTHESIA FINDINGS:Intubation History: No history of difficult intu bationSignificant Anesthesia Considerations: NoneAirway Exam: General: Normal appearance [...] hx of difficult airway, uses bipap Mouth: Normaltongue size and Mouth opening greater than 2 [...] needed post surgery.CONSULTS:Patient does not require consults foroptimization at this time.The Following Tests/Procedures Have Been Initiated:Orders Placed This Enco unter CONFIRM BLOOD TYPE ECG COMPLETE W INTERPRETATIONPlanned Anesthetic: GeneralInstructions Givento Patient:Patient given verbal and written preop instructions and voicescomprehension and compliance.SIGNATURE: Rosalva Rodas CNP PATIENT NAME: Soumya AbdiDATE: August 02, 2017 :2:31 PM PAGER/CONTACT #:[facility] [id number] Visit ([facility] --------SOUMYA ABDI ([id number]) 1960 FDate Time Provider Department07/24/17 3:30 PM NURSE ATHLETIC EQUIPMENT CUSTODIAN [facility] During your visit today, we recorded the following information about you:Colleen Menard, RN, RN 07/24/2017 4:05 PM SignedDATE OF SERVICE: 07/24/2017PROBLEM: Soumya Abdi presents for pre- op teaching.PRE-OP DIAGNOSIS: Erosion of vaginal mesh, RectoceleSCHEDULED SURGERY AND DATE: 08/03/2017 REMOVE SLING TX FOR STRESS INCONTINENCEFEMALE, CYSTOSCOPY, REPAIR RECTOCELEPRIMARY SURGEON: MCKENNA Lakhani PREOP ASSESSMENT:Fevers, chills, cough, or nasal congestion: NoVaginal itching, burni ng, discharge, or odor: NoPain with urination, frequency, [...] to assess - Family not presentPRE- AND POST- OPERATIVE TEACHINGPre-operative teaching and supplemental material provided and reviewed withpatient: Your SurgicalGuide BookMapWritten pre-op and post-op instructionsAntibacterial soap: Instructed patient to use antibacterial soap.Pre-operative instructions provided and reviewed with patient/family: Noeating, drinking, or smoking after midnight prior to surgery unless otherwisedirectedNo alcohol the day beforesurgeryMedications as prescribed by anesthesia, internal medicine, surgeon, or NPStop NSAIDs, Aspirin (ASA), vitamins, herbal supplements, herbal teas, and dietpills 7-10 days prior to surgeryOK to take tylenol prn pain unless otherwise directed by [facility] surgery coordinators if any other questions about surgerydate or pre-op appointmentsBowel prep instructions: None neededNosolid foods after midnight including gum, mints, and smoking. May drink upto 12oz of clear liquids up to 2 hours prior to arrival time.Day of surgery instructions provided and reviewed with patient/family: Arrivaltime (call surgical coordinators on the office day prior to surgery forverification)Nojewelry, body piercing, makeup, contacts, lotions, nail tuvaluan on fingers,or anything in hair on arrival to surgeryWear low healed shoes and loose fitting clothingLeave all valuables at home or with a family memberDirections to [facility] CenterParking/parking validation on the day prior [...] as ordered by MD, drink 8 glasses of watera day, eat [...] - IV pain medication after surgery, IV INSTALLER TECHNICIAN if ordered by MD,discharged home witha prescription for PO pain medication, pain managementafter surgery, side effects of pain medication (including constipation,dizziness, drowsiness, and medication interactions).VAGINAL CARE - Pelvic rest x6 weeks unless otherwise directed by MD.DVT PROPHYLAXIS - Early ambulation, SCDs, injectable anticoagulants (heparin,lovenox, etc)RESPIRATORY - Incentive spirometer, coughing/deep breathing exercises,ambulation.RETURN TO WORK - As directed by physician, please send any FMLA papers tophysician's private secretary.SYMPTOMS TO NOTIFY MD - Fever, chills, nausea, vomiting, increased or severepain, heavy vaginal bleeding, foul smelling vaginal drainage, pain or swellingin extremities.URGENT SYMPTOMS - Call 911 or go to ER if any shortness of breath, difficultybreathing, or chest pain.HOW TO CONTACT PHYSICIAN - Physician's office phone number given to patient, ifafter hours patient instructed to calloperator and ask for photographic reproduction technician obstetrics and gynecology professor oncresident.BLANCHE program offered to patient: YesAdditional teaching as indicated by patient/family learning needs.PATIENT LEARNING EVALUATION ANDamp; FOLLOW UP PLAN:Patient and/or family express understanding of upcoming surgery, pre-operativepreparation, the operative process, and post-operative instructions.Follow up plan: Complete - No need for follow-upPatienthas a post- op appointment scheduled: YesReferral (recommentation): NoneEducator: Colleen Menard, JOSÉ MIGUELMercyhealth Walworth Hospital and Medical CenterColleen Menard RN, RN 07/24/2017 3:55 PM SignedGYNECOLOGY PHYSICIAN CONTACT INFORMATIONSurgery Scheduling Office General Gynecology Gynecologic OncologyDr. Susan Santos Dr. Carolynn Spicer DrMichelle Zuniga. [place] [phone]( Dr. Gaetano Malave DrMichelle Baez Dr. Delio Birmingham DrMichelle Cortez Dr. Valerie Cortez Dr. Dalia Kessler Gynecology Nurse Practitioner Lali Greenwood, [facility] Lawn Mower Oncology Nurse Practitioners:Sierra De Jesus, [facility] Alice Weinstein, [facility] Missy Chowdhury, [facility] Paradise Mirza, [facility] HE[facility] CENTERUrogynecology Jenn Glover, [facility] CENTERDr. Vani Mcintyre Hortencia Banda, [facility] CENTERDr. Mechelle Hernandez DrMichelle Shukla DrMichelle Mendez FertilityDr. Tyler Tanner Dr. Judy Ojeda Dr. Paolo Stephenson [phone] NursePractitioner: Dr. Jenifer FrenchDrMichelle Cunningham Kelly Davidson [facility] CENTERCarina Love, [facility] Fertility NursePractitioners: Lali Au, BRANT Gutierrez [facility]ALTH CENTERKalee 4:30 pm or on holidays or weekends, call: or . Ask the slime plant operator helper topage the ?obstetrics and gynecology professor photographic reproduction technician.' PRE-OPERATIVE CHECKLIST: PATIENT INSTRUCTIONS PRIOR TO SURGERYOur guidelines [...] not to have any solid food to eatafter midnight priorto my surgery (this includes no gum, mints, smoking). I am allowed to drink small amounts (up to 12 oz) of clear liquids up until 2hours prior to my ARRIVAL TIME. Clear liquids include water, fruit juices without pulp, carbonated beverages(i.e. tracy ivon), electrolyte beverages(i.e. Gatorade), clear tea and blackcoffee, clear broth, popsicles and jello. (No milk). No alcoholthe daybefore or day of surgery. I will bring this binder to all pre and post- operative appointments AND day ofsurgery.MEDICATION STOPPAGE: I will not wear jewelry, body piercing(s), makeup, nail tuvaluan, hairpins, orcontacts on the day of surgery. I am to leave valuables and money at home orwith family members. Unless my surgeon tells me differently, I will STOP THESEMEDICATIONS 7 DAYS PRIOR TO SURGERY: (Motrin/Ibuprofen/Naproxen/Aleve/Advil),Aspirin, vitamin E, herbal medications, diet pills, and whhn-kjp-xmfdnbqqvygwayypzh. Tylenol (acetaminophen) is okay. If I am prescribed inhalers for breathing, I will use them and [facility]. Medication(s) to be taken on the morning of surgery with a fewsips of water: If I am taking any of the following blood thinning medications ? Aspirin,clopidogrel (Plavix), ticagrelor (Brilinta), prasugrel (Efficient), ticlodipine(Ticlid), warfarin (Coumadin), dibigatran (Pradaxa) or rivaroxaban (Xarelto) -I will discuss whether or not I should stop them before surgery with mySurgeon. Discuss medication changes with your emergency medical tech or primary carephysician as well.If I stopped taking my blood- thinning medication, I will ask the surgeon whento resume taking it. If I am an outpatient, a responsible person will drive me home and it wassuggested that someone stay with me for 24 hours.I understand that a director of business development or cabdriver is NOT a responsible caregiver. [...] time for surgery, I must call my assistant professor surgical technology supwk2rm the day before surgery. Pain management education material found in Your Surgical Guide was reviewedwith me. Preoperative instructions given by:ATHLETIC EQUIPMENT CUSTODIAN PREOP INSTRUCTIONSPRE-OPERATIVE CHECKLIST? See Pre-Operative Checklist (either attached or in Your Surgical Guide Book)THE DAY OF SURGERY/CHECK IN? Report to DESK P20 located in the surgery center (unless otherwise instructedto go to J1- 1). A map is located in Your Surgical Guide Book.INFECTION PREVENTION? Please notify your doctor if you have any signs of an infection (i.e. fever,severe cough, nasal congestion, pain withurination, abnormal vaginaldischarge, etc).? Your surgeon will let [...] day before surgery.? You may be asked toapply an antiseptic solution called ChlorhexidineGluconate (CHG) which will be provided to you on arrival to the preop area.? Hand washing is extremely important in preventing infection (for both youasthe patient and for the caregivers).HOSPITALIZATION? Before you leave the hospital, you typicallyneed to be able to eat/drink,urinate, and have [...] up your recovery after surgery.? If you areadmitted to the hospital overnight, you will be given an incentivespirometer, which is a breathing machine that will help make sure that you aretaking deep breaths and expanding your lungs while in the hospital. See YourSurgical Guide Book for more information.[facility] TEAM? At the [facility], we have a multidisciplinary team of caregivers thatincludes fellows, residents, nurse practitioners (medical scheduler), physician assistants(PAs), clinical nurse specialists (CNSs), nurses, medical assistants (MAs),patient care nursing assistants (PCNAs), social workers, case maker and manyothers. We all have different roles [...] TO EXPECT AT HOME? Recovery from surgery isgenerally 2-4 weeks, but sometimes longer for morestrenuous activity. It is normal to be very tiredduring this time.? It is normal to have some drainage or a small amount of vaginal bleedingafter surgery which may last up to 6 weeks.? If you had a laparoscopic surgery, you may experience gas pain,abdominalswelling, or shoulder pain for 24- 72 hours after surgery. A warm shower,heating pad, [...] difficulty breathing, orchest pain.Referring Provider: ELENA PARKS [[id number]]Allergies As of Date: 07/24/2017 Noted Aller gy ReactionLEVAQUIN (LEVOFLOXACIN) 08/04/2013 2 - RashDate Reviewed: 07/24/2017Reviewed by: Colleen (Rn) JOSÉ MIGUEL Menard - Fully AssessedReason for Visit: Pre-Op Teaching [134]Primary Visit Diagnosis:Educational circumstances [Z55.9]Prescriptions as of 07/24/2017 Sig: AMOXICILLIN ORAL Take by mouth. PREG ABALIN 200 MG CAPSULE Take 200 mg by mouth three ti* EXENATIDE ER 2 MG SUBCUTANEOU* Inject subcutaneously once e* DOCUSATE SODIUM 100 MG CAPSULE Take 100 mg by mouth once leana* VARENICLINE 1 MG TABLETTake 1 mg by mouth twice dima* GLIMEPIRIDE 4 MG TABLET Take 4 mg by mouth twice dima* LEFLUNOMIDE 20 MG TABLET Take 20 mg by mouth once dima* ROSUVASTATIN 20 MG TABLET Take 20 mg by mouth once dima* TOLTERODINE ER 4 MG CAPSULE,E* Take 4 mg by mouth once daily. ESTRADIOL 0.01% (0.1 MG/GRAM)* Use 1 gvaginally as directed* OXYCODONE- ACETAMINOPHEN 5 MG-* four times daily as needed. ALENDRONATE 70 MGTABLET once each week. ALPRAZOLAM 0.5 MG TABLET [...] 2 PUFFS TWICE DAILY * POTASSIUM CHLORIDE ER10 MEQ * Take one(1) tablet daily. * ALBUTEROL 90 MCG/ACTUATION AE* PRN * BIPAP 16CM/22CM NIGHTLY *PROVIGIL 200 MG TABLET Take one(1) tablet daily in t* * REQUIP 0.5 MG TABLET 2 mg daily * COMPOUNDED PRESCRIPTION CALCIUM 1200MG PLUS VITAMIN D* * SINEMET CR 25 MG-100 MG TABLE* [address] [facility] List As Of Date 07/24/2017 Noted Resolved ABNORMAL FINDINGS- BREAST [793.8] INVALID FOR* CORONARY ATHEROSCLER UNSPEC VESSEL [...] [G47.30] More... CVA (cerebral infarction) [I63.9] More... Depr ession [F32.9] More... RLS (restless legs syndrome) [G25.81] More... Migraine [G43.909] DDD (degenerative disc disease) [JHK5336] Lumbar radiculopathy [M54.16] Cervical radiculopathy [M54.12] Peripheral neuropathy [G62.9] Smoker [F17.200] Anxiety and depression [F41.8] INVALID FOR* Urinary incontinence [R32] INVALID FOR* Chronic pain [G89.29] MISA (stress urinary incontinence, female) [N39.*INVALID FOR* More... 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 Other instructions fromyour clinician: GYNECOLOGY PHYSICIAN CONTACT INFORMATION Surgery Scheduling Office General Gynecology Gynecologic Oncology Dr. Susan Santos Dr. Carolynn Spicer Dr. Tyler Marley Dr. Gaetano Malave Dr. Elise Petty Dr. Delio Birmingham Dr. Heidy Cortez Dr. Valerie Cortez Dr. Dalia Kessler Gynecology Nurse Practitioner Lali Greenwood, [facility] Lawn Mower Oncology Nurse Practitioners: Sierra De Jesus, BRANT Weinstein, BRANT Chowdhury, PROJECT INSPECTOR Paradise Mirza, [facility] Urogynecology Jenn Glover, [facility] Dr. Vani Mcintyre Hortencia Banda, [facility] Dr. Mechelle Hernandez Dr. Edna Shukla Dr. Carrie Mendez Fertility Dr. Tyler Tanner Dr. Judy Ojeda Dr. Paolo Stephenson Urogynecology Nurse Practitioner: Dr. Jenifer Cunningham Kelly Davidson, [facility] Carina Love, [facility] Fertility Nurse Practitioners: Lali Au, BRANT Gutierrez, [facility] After 4:30 pm or on holidays or weekends, call: or . Ask the slime plant operator helper to page the ?obstetrics and gynecology professor photographic reproduction technician.' PRE-OPERATIVE CHECKLIST: PATIENT INSTRUCTIONS PRIOR TO SURGERY Our guidelines have changed, so please read these instructions carefully. Your surgery may be cancelled if you do not follow these instructions. MY ARRIVAL TIME IS: PATIENTS WITH DELAYED STOMACH EMPTYING:I have been instructed not to have anything [...] my ARRIVAL TIME. Clear liquids include water, fruitjuices without pulp, carbonated beverages (i.e. tracy ivon), electrolyte beverages (i.e. Gatorade), clear tea and black coffee, clear broth, popsicles and jello. (No milk). No alcohol the day before or day of surgery. I will bring this binder to all pre and post-operative appointments AND day of surgery. MEDICATION STOPPAGE: I will not wear jewelry, body piercing(s), makeup, nail tuvaluan, hairpins, or contacts on the day of surgery. I am to leave valuables and money at home or with family members. Unless my surgeon tells me differently, I will STOP THESE MEDICATIONS 7 DAYS PRIOR TO SURGERY: (Motrin/Ibuprofen/Naproxen/Aleve/Advil), Aspirin, vitamin E, herbal medications, diet pills, and jatg-exl-gxtfdab medications. Tylenol (acetaminophen) is okay. If I am prescribed inhalers for breathing,I will use them and bring them to the hospital. Medication(s) to be taken on the morning of surgerywith a few sips of water: If I am taking any of the following blood thinning medications ? Aspirin,clopidogrel (Plavix), ticagrelor (Brilinta), prasugrel (Efficient), ticlodipine (Ticlid), warfarin (Coumadin), dibigatran (Pradaxa) or rivaroxaban (Xarelto) - I will discuss whether or not I should stop them before surgery with my Surgeon. Discuss medication changes with your emergency medical tech or primary care physician as well. If I stopped taking my blood-thinning medication, I will ask the surgeon when to resume taking it. If I am an outpatient, a responsible person will drive me home and it was suggested that someone stay with me for 24 hours. I understand that a director of business development or cabdriver is NOT a responsible caregiver. [...] time for surgery, I must call my assistant professor surgical technology after 2pm the day before surgery. Pain management education material found in Your Surgical Guide was reviewed with me. Preoperative instructions given by: ATHLETIC EQUIPMENT CUSTODIAN PREOP INSTRUCTIONS PRE-OPERATIVE CHECKLIST ? See Pre-Operative [...] your abdomen, belly button and external genitalia. Donot forget to scrub any skin folds and creases. ? No lotions, oils, creams, or powders after your shower. Underarm deodorant is okay. ? No shaving (abdominal or pubic hair) or douching the day beforesurgery. ? You may be asked to apply [...] will help make sure that you are takingdeep breaths and expanding your lungs while in the hospital. See Your Surgical Guide Book for more information. [facility] TEAM ? At the [facility], we have a multidisciplinary team of caregivers that includes fellows, residents, nurse practitioners (medical scheduler), physician assistants (PAs), i nical nurse specialists (CNSs), nurses, medical assistants (MAs), patient care nursing assistants (PCNAs), social workers, case maker and many others. We all have different [...] you are awake to reduce your risk ofblood clots. ? Return to work when directed by your surgeon. Please contact your surgeon?s office if any FMLA or other paperwork is needed. WOUND CARE ? If you have bryan (abdominal incision), theyneed to be removed about 10-14 days after surgery. If you have sutures, they do not need to be removed. Keep any incision clean, dry, and open to the air. ? Shower daily after surgery. No tub baths until wound is completely healed. ? Shower daily after surgery. Clean your incision daily with the Hib iclens soap. If this soap is irritating your [...] take Miralax and/or milk of magnesia as needed.GUILLORY CARE ? You may go home with [...] 38.0?C) or chills. ? Incision problems such asredness, warmth, swelling, or foul smelling drainage. ? [...] the ED if any shortness of breath, difficultybreathing, or chest pain. Status:Closed by COLLEEN MENARD on NoCleveland Clinic Fairview HospitalPROESSon [id number] ID: [id number]: Colleen (Rn) MARYLIN Menardervice: (none)Author Type: Registered NurseType: Progress NotesFiled: 07/24/2017 4:05 PMNote Text:DATE OF SERVICE: 07/24/2017PROBLEM: Soumya Abdi presents for pre-op teaching.PRE-OP DIAGNOSIS: Erosion of vaginal mesh, RectoceleSCHEDULED SURGERY AND DATE: 08/03/2017 REMOVE SLING TX FOR STRESSINCONTINENCE FEMALE, CYSTOSCOPY, REPAIR RECTOCELEPRIMARY S URGEON: MCKENNA Lakhani PREOP ASSESSMENT:Fevers, chills, cough, or nasal congestion: NoVaginal itching, burning, discharge, or odor: NoPain with urination, frequency, urgency, cloudy or foulsmelling urine:NoIf yes to any of the above [...] tylenol prn pain unless otherwise directed by physicianNeha surgery coordinators if any other questions aboutsurgery [...] jewelry, body piercing, makeup, contacts, lotions, nail tuvaluan onfingers, or anything in hair on arrival to surgeryWear low healed shoes and loose fitting clothingLeave all valuablesat home or with a family memberDirections to [facility] Medical CenterParking/parking validation on the day prior to surgeryAdmission/check inHolding areaPlacement of IVSurgical positioningFamily waiting areaSurgical recovery roomPost-operative instructions provided and reviewed with patient/family: SEEPATIENT INSTRUCTION SECTION FOR DETAILS.ACTIVITY - No heavy lifting (>5-10 lbs), no pushing/pulling, OK to climbstairsDRIVING - No driving for 3 weeks unless prior approval from , OK to ridein a car.DIET - Advance diet as tolerated and as ordered by MD, drink 8 glasses ofwater a day,eat a diet high in protein and fiber [...] to shower after surgery unless otherwise directed byMD, notub baths.PAIN MEDICATION - IV pain medication after surgery, IV INSTALLER TECHNICIAN if ordered byMD, discharged home with a prescription for PO pain medication, painmanagement after surgery, side effects of pain medication (includingconstipation, dizziness, drowsiness, and medication interactions).VAGINAL CARE - Pelvic rest x6 weeks unless otherwise directed by MD.DVT PROPHYLAXIS - Early ambulation, SCDs,injectable anticoagulants(heparin, lovenox, etc)RESPIRATORY - Incentive spirometer, coughing/deep breathing exercises,ambulation.RETURN TO WORK - As directed by physician, please send any [facility] paperstophysician's private secretary.SYMPTOMS TO NOTIFY MD - Fever, chills, nausea, vomiting, increased orseverepain, heavy vaginal bleeding, foul smelling vaginal drainage, painor swelling in extremities.URGENTSYMPTOMS - Call 911 or go to ER if any shortness of breath,difficulty breathing, or chest pain.HOW TO CONTACT PHYSICIAN - Physician's office phone number given topatient, if after hours patient instru cted to call slime plant operator helper and ask for oncall obstetrics and gynecology professor onc resident.BLANCHE program offered to patient: YesAdditional teaching as indicated by patient/family learning needs.PATIENT LEARNING EVALUATION AND FOLLOW UP PLAN:Patient and/or family express understanding of upcoming surgery,pre-operative preparation, the operative process, and post-operativeinstructions.Follow up plan: Complete - No need for follow-upPatient has a post-op appointment scheduled: YesReferral (recommentation): NoneEducator: Colleen Menard, JOSÉ MIGUELKindred Hospital AuroraCNLyndsey [id number] Visit ([facility]) --------SOUMYA ABDI ([id number]) 1960 FDate Time Provider Dxmhxdezjc83/11/17 2:30 PM ELENA PARKS [facility] During your visit today, we recorded the following information about you: Blood pressure Weight Height 104/70 98.4 kg 1.676 Earline Parks MD 06/11/2017 5:06 PM Fdwstv5706/11/2017Soumya Abdi presents today for a diagnostic cystoscopy. Indication: Urinaryincontinence in setting of previous sling with exposure.UNIVERSAL PROTOCOL / SAFETY CHECKLISTProcedure to be performed: Office CystoscopySign in Communication: CompletedTime Out: Team Confirms the Correct Patient, Correct Procedure, Correct Siteand Site Marking, Correct Position (if applicable), Prep and Dry Time (ifapplicable). Time: 305Affirmation of Time Out: YESSign Out Discussion: Landon Gross RNPROCEDURE:The patientwas taken to the procedure room, placed in lithotomy position andprepped in the usual fashion. Anesthesia: Intraurethral Lidocaine jelly 5 mL.Video-assisted cystourethroscopy was performed using a 70degree cystoscopewith saline infusion.Findings: There was a 1-2cm [...] crampingAbnormal Vaginal Discharge: noREVIEW OF SYSTEMSGeneral: No weightloss, malaise or feversSkin negativePsychiatric negativeNeurologic No history of headaches, syncope, paralysis, seizures or tremorsEndocrine No history of thyroid disorder, diabetes, cold intolerance, heatintolerance, polydypsiaCardiovascular No history of chest pain, palpitation, orthopnea, cyanosis,pedal edemaHematologic/Lymphatic negativeRespiratory No cough, hemoptysis, asthma, recent chest infection, wheezingGastrointestinal No blood in stool, pain with BM, tarry stool, persistentdiarrhea or constipationMusculoskeletalNegativeOBJECTIVE:General: Well appearing, alert, in no acute distress, well-hydrated, wellnourished.Abdomen: Normal abdominal exam, Abdomen soft, non-tender. Bowel sounds normal.No masses, organomegalyPelvic:Ext. Genitalia, WNLVagina: erosion of midurethral sling at distal urethraCervix: AbsentUrethra: erosion of sling, mildly TTPBimanual: No tenderness, No massesReview of records: retropubic midurethral sling (not TVT)Impression: 57 yo woman with history of sling,now with sling erosion andurinary incontinence. Cysto normal today.Plan: 1. Discussed options - observation, vaginal estrogen, excision. Patientelects excision. She is aware this will worsen UI. She is interested indiscussing a staged procedure - autologous fascial sling or Dotson - ifnecessary.2. Continue vaginal estrogen.3. Continue miralax.4. Plan rectocele repair.KAI Kohtariefdeniseing Provider: ELENA PARKS [[id number]]Allergies As of Date: 06/11/2017 Noted Allergy ReactionLEVAQUIN (LEVOFLOXACIN) 08/04/2013 2 - RashDate Reviewed: 06/11/2017Reviewed by: Elena Parks - Fully Assesse dReason for Visit: Procedure [88] Cmt: CystoscopyPrimary Visit Diagnosis:Erosion of vaginal mesh, subsequent encounter [T83.961D] Other Visit Diagnoses:Pre- procedure lab exam [Z01.812] Postmenopausalatrophic vaginitis [N95.2] Rectocele [N81.6]Order(s):SURGICAL REQUEST - ELECTIVE [[id number]] Order #:[id number]: 1Prescriptions as of 06/11/2017 Sig: AMOXICILLIN ORAL [...] MG/GRAM)* Use 1 g vaginally as directed* OXYCODONE- ACETAMINOPHEN 5 MG-* four times daily as needed. [...] More... Migraine [G43.909] DDD (degenerative disc disease) [[id number]] Lumbar radiculopathy [M54.16] Cervical radiculopathy [M54.12] Peripheral neuropathy [G62.9] Smoker [F17.200] Anxiety and depression [F41.8] INVALID FOR* Urinary incontinence [R32] INVALID FOR* Chronic pain [G89.29]Visit Notes:>> Elma Gross RN Mon Jun 11, 2017 2:52 PM Status: SignedPt urine dark orange color. Unable to do urine dip today.Pt denies any symptoms of UTI and currently on amoxicillin for sinusinfectionENRRIQUE Streetollow-up and Disposition History Recorded Status:Closed by ELENA PARKS on 06/11/17NoCleveland Clinic Fairview HospitalPROMETHODIST REHABILITATION CENTERUREon [id number] ID: [id number]: Elena Springerervice: (none)Author Type: PhysicianType: ProceduresFiled: 06/11/2017 5:06 PMNote Text:06/11/2017Soumya Abdi presents today for a diagnostic cystoscopy. Indication:Urinary incontinence in setting of previous sling with exposure.UNIVERSAL PROTOCOL / SAFETYCHECKLISTProcedure to be performed: Office CystoscopySign in Communication: CompletedTime Out: Team Confirms the Correct Patient, Correct Procedure, CorrectSite and Site Marking, Correct Position (ifapplicable), Prep and Dry Time(if applicable). Time: 305Affirmation [...] abnormalitiesnoted. Normal urethra without inflammation, diverticulum, or otherabnormality.Complications: noneProcedure Summary: Patient tolerated pr ocedure well.Medications: NoneIMPRESSION: 57 yo woman with mesh erosion following retropubic sling -normal cysto.PLAN: See note from today.Elena Parks MDOhioHealth Riverside Methodist HospitalPROESSon [id number] ID: [id number]: Elena Springerervice: (none)Author Type: PhysicianType: Progress NotesFiled: 06/11/2017 5:06 PMNote Text:Soumya Abdi is a 57 year old female, G 3 P 3 who presents for afollow-up of urinary incontinence, mesh erosion.History since last visit: No changes.Urinary Incontinence: yes, severeVoiding Dysfunction: noUrinary Frequency: yesUrinary Urgency: yesProlapse Symptoms:yes, mild bulgeDefecatory Dysfunction: yes, splints with BMFecal Incontinence: noAbnormal Bleeding:noPain: yes, crampingAbnormal Vaginal Discharge: noREVIEW OF SYSTEMSGeneral: No weight loss, malaise or feversSkin negativePsychiatric negativeNeurologic No history of headaches, syncope, paralysis, seizures ortremorsEndocrine No history of thyroid disorder, diabetes, cold intolerance, heatintolerance, polydypsiaCardiovascular No history of chest pain, palpitation, orthopnea, cyanosis,pedal edemaHematologic/Lymphatic negativeRespiratory No cough, hemoptysis, asthma, recent chest infection, wheez ingGastrointestinal No blood in stool, pain with BM, tarry stool, persistentdiarrhea or constipationMusculoskeletalNegativeOBJECTIVE:General: Well appearing, alert, in no acute distress, [...] estrogen.3. Continue miralax.4. Plan rectocele repair.Elena Parks MDFort Hamilton Hospital [phone] [address] [place], [place] [address]Iskmmaggi Parks M.D.[facility] DisordersOB/ATHLETIC EQUIPMENT CUSTODIAN AND [facility] [place] Office: appointments: Fax: [facility]Alphonso Rivera MD[address] [place], [place] [address]RE: Soumya AbdiDOB: 1960Dr. Rivera,Thank you for your kind referral. Enclosed is a copy of the clinic notesfrom Soumya Abdi' visit on May 142016.If you have any questions or if I can be of further assistance, please do nothesitate to call.Sincerely,Elena Parks MDBR:cfcNCommunity Regional Medical CenterCNOV [id number] Visit ([facility]) --------SOUMYA ABDI ([id number]) 1960 FDate Time Provider Yncxblmith27/13/17 10:50 AM PERLA PARKS [facility] During your visit today, we recorded the following information about you: Blood pressure Weight Height 118/84 103 kg 1.676 Earline Parks MD 05/14/2017 2:42 PM SignedCHIEF COMPLAINT:Rosemarie is a 57 year old White Not [...] blood in the urine: NoHow many UTI's haveyou had in the last year? NoDo you [...] type over the last 3months? Type 2: Sausage-shapedbut lumpyIn the last 3 months how often did you:Have fewer than 3 bowel movements (0-2) a week? (1)SometimesHave hard or lumpy stools?(2) OftenStrain during bowel movements?Have a feeling of incomplete emptying after bowelmovements?(2) OftenHave a sensation that the stool could not be passed, (i.e. Blocked) when havinga bowel movement?(3) Most of the timeHave difficulty relaxing or letting go toallow the stool to come out during abowel movement?(1) SometimesHave loose, mushy or watery stools?(1) SometimesFecal Incontinence:How often have you experienced the following conditions during the past 4weeks?1. Accidental bowel leakage of solid stool?Never (0)- no episode in the past 3itdvg9. Accidental bowel leakage of liquid stool?Rarely (1)-1 episode in the past 1qyuwi4. Accidental bowel leakage of gas?Rarely (1)-1 episode in the past 4 weeks4. How often did these situations alter your lifestyle?Sometimes (2)During the past 4 weeks, did you:5. Need to wear a pad? No (0)6. Need to take constipating medicines? Yes (2)7. Lack the ability to defer defecation for 15 minutes? Yes (2)[place] Total Score: 8Sexual Activity: Not on fileAre you sexually active?: No other: No partnerGYN History:Last Pap: Date: 2015; Normal ; Last Mammogram: Her last mammogram was 2015. Shehas a previous history of an abnormal mammogram with ANDquot;a lymph node theywere watchingANDquot;LMP: No LMP recorded. Patient has had a hysterectomy.; Menopause: yes:history of post menopausal bleeding: no: MenstrualHistory: NA;Are you currently using oral or vaginal hormone replacement therapy? noHave you used hormone replacement therapy in the past? noDeliveries: SVDAny third or fourth degree lacerations/tearsinto anal sphincter?: YesLast Colonoscopy: Approximately 5 years agoColleen Menard, RNNovember 2016 11:51 AMPAST MEDICAL HISTORYDiagnosis Date- Anxiety and depression- CAD (coronary artery disease) CAD: mild disease. [facility] was 12/26/05: No intervention. stable- Cervical radiculopathy- Chronic pain- COPD (chronic obstructive pulmonary disease) ([facility] COPD- CVA (cerebral infarction) stoke- mini strokes- DDD (degenerative disc disease)- Depression depression- DJD (degenerative joint disease) degenerative joint disease- DM (diabetes mellitus) ([facility]) borderline diabetes- : on glucophage- HTN (hypertension) Hypertension- Hyperlipidemia hyperlipidemia- Lumbar radiculopathy- Migraine- Multiple sclero sis ([facility]) Multiple sclerosis- Peripheral neuropathy ([facility])- Rheumatoid arthritis ([facility]) rheumatoid arthritis- RLS (restless legs syndrome) restless leg syndrome- Sleep apnea sleep apnea- Smoker- Urinary incontinencePAST SURGICAL HISTORYProcedure Laterality Date- ANTERIOR INTER[facility]; INCISIONAL 1998 right breast for cyst- PAST SURGICAL HISTORY OF 01/2005 [facility] BSO- PAST SURGICAL HISTORY OF rectocele, vagicele with hyster- PAST SURGICAL HISTORY OF 2003,1997 tumor excion left elbow and right foot- PAST SURGICAL HISTORY OF 1961 TANDamp; A- PAST SURGICAL HISTORY OF DANDamp;C x 3 after childbirthFAMILY HISTORYProblem Relation Age of Onset- Breast Cancer Paternal Aunt diagnosised age 45- Cancer Other no known family h/o ovarian cancer- Heart Father- EmphysemaBrother- brain aneurysm [Other] [OTHER] MotherSocial History: Social History Marital status: Spouse name: Years of education: Number of children:Social History Main Topics Smoking status: For wang Smoker Packs/day: 0.30 Years: 32.00 Types: Cigarettes [...] dusting or washing dishes (2.70 METs)Take care ofself, that is eating, dressing, bathing, using the toilet (2.75METs)Do moderate work around the house such as vacuuming, sweeping floors, orcarrying in groceries (3.50 METs)Climb a flight of stairs or walk up a hill (5.50 METs)REVIEW OF SYSTEMSGeneral: chills and weakness in legsSkin: Negative for rash or itching.Psychiatric: depressionNeurologic: Negative for new headache or syncope.Endocrine: +heat intoleranceCardiovascular: Negative for recent chest pain, chest pressure or chestdiscomfort.Hematologic/Lymphatic: Negative for easy bruising or excessive bleeding.Respiratory: COPD - has wheezingGastrointestinal: abdominal pain, vomitingMusculoskeletal: muscle pain, back pain, joint pain, joint stiffnessI have reviewed the above history of present illness, past medical history andreview ofsystems as completed by my RN.OBJECTIVEPhysical Exam:Constitutional: Vital and BMI BP 118/84 Ht 167.6 cm (5' 6ANDquot;) Wt 103 kg(227 lb) BMI 36.64 kg/m2 BMI 36.64 kg/(m2)General Appearance: Well appearing, alert, in no acute distress, well-hydrated,well nourished.Mood and affect: pleasant, ap propriateSkin: Skin color, texture, turgor normal, no suspicious rashes or lesionsNeck: Supple, no adenopathy; thyroid symmetric, normal size, no bruitsLungs: normal inspiratory effortHeart: RRR without murmur, gallop, or rubs. No ectopyBreasts:DeferredAbdomen: Normal abdominal exam and Abdomen soft, non-tender. No masses,organomegalyPelvic: Ext. Genitalia: No lesions or other abnormalities Vagina: Ant wall - Normal support ; Post wall - Normal support Cervix / Roosevelt - Normal support Prolapse Noted: NoCervix: AbsentUrethra: mesh erosion on distal urethra. Able to see and palpate mesh edge.White area noted, ?stoneBimanual: No tenderness, No massesShe does not have myofascial tenderness in herlevator ani and obturatorinternus muscles.Saddle Sensory Exam (S-4): normalAnal [place]: NoBrink's Components AssessmentPressure c. Moderate squeeze, felt all the way around the finger surtface.Durationc. ANDgt;1ANDlt; 3 secondsDisplacement of vertical plane c. Whole length of fingers move anteriorlyDRESS Resting Score: (3) normalDRESS Rectal Squeeze Score: (3) normalSphincter Defect: noRectocele Present: yes, distalIMPRESSION:Soumya Abdi is a 57 year old female with Defecatory Dysfunction /Constipation, rectocele, vaginal atrophy, mesh exposure, urinary incontinence.PLAN:1. Urinary incontinen ce in setting of previous sling with exposure. Op noteordered. Will check cystoscopy. In mean time,start vaginal estrogen. Rxprovided, precautions reviewed. Will address UI after additional information isobtained.2. Vaginal atrophy - start vaginal estrogen.3. Constipation, rectocele - discussed findings and symptoms. She isinterested in starting a bowel regimen. Start miralax 1 capful and titateasneeded.4. FU for cystoscopy.cc: Dr. Bazan final recommendations [...] [N39.498] Erosion of vaginal mesh, initial encounter ([facility]) [T83.011A] Postmenopausal atrophic vaginitis [N95.2] Rectocele [N81.6]Order(s):UA DIP B/O [[id number]] Order #: [id number] estradiol (ESTRACE) 0.01 % (0.1 mg/gram) vaginal creamUse 1 g vaginally as directed. Use daily x 2 weeks and then 2-3 times per week as directed. May apply with finger.Disp: 1 TubeRfl: 4Prescriptions as of 05/14/2017 Sig: PREGABALIN 200 MGCAPSULE Take 200 mg by mouth three ti* EXENATIDE ER 2 MG SUBCUTANEOU* Inject subcutaneously once e*DOCUSATE SODIUM 100 MG CAPSULE Take 100 mg by mouth once leana* VARENICLINE 1 MG TABLET Take 1 mg by mouth twice dima* GLIMEPIRIDE 4 MG TABLET Take 4 mg by mouth twice dima* LEFLUNOMIDE 20 MG TABLET Take 20 mg by mouth once dima* ROSUVASTATIN 20 MG TABLET Take 20 mg by mouth once dima* TOLTERODINE ER4 MG CAPSULE,E* Take 4 mg by mouth once daily. OXYCODONE-ACETAMINOPHEN 5 MG-* four times daily as needed. ALPRAZOLAM 0.5 MG TABLET three times daily as needed. CITALOPRAM 40 MG TABLET once daily. ADVAIR DISKUS 500 MCG-50 MCG/* twice daily. TIZANIDINE 4 MG TABLET twice daily. FUROSEMIDE 20 MG TABLETonce daily. * COMPOUNDED PRESCRIPTION rotuxin * PLAQUENIL 200 MG TABLET Take one(1) tablet daily. *MS CONTIN 30 MG TABLET,EXTEND* Take one(1) tablet [...] 1200MG PLUS VITAMIN D* * SINEMET CR 25MG-100 MG TABLE* 2 tabs at HS ESTRADIOL 0.01% (0.1 MG/GRAM)* Use 1 g vaginally as directed* ALENDRONATE 70 MG TABLET once each week. GABAPENTIN 800 MG TABLET three times daily.Medication notes this encounter ALENDRONATE 70 MG TABLET >> Colleen Menard RN, RN 05/14/2017 11:29 AM >> COLLEEN MENARD [facility] May 14, 2017 11:29 AM Not taking GABAPENTIN 800 MG TABLET >> Colleen Menard RN, RN 05/14/2017 11:30 AM >> COLLEEN MENARD May 14, 2017 11:30 AM Not takingProblem List [...] [G47.30] More... CVA (cerebral infarction) [I63.9] More... Depressio n [F32.9] More... RLS (restless legs syndrome) [G25.81] More... Migraine [G43.909] DDD (degenerative disc disease) [CBE6739] Lumbar radiculopathy [M54.16] Cervical radiculopathy [M54.12] Peripheral [...] per week as directed. May apply with finger.Follow-upand Disposition History RecordedEncounter Number: [id number] Status:Closed by ELENA PARKS on 05/14/17NoCleveland Clinic Fairview HospitalPROESSon [id number] HNO ID: [id number]: Elena Springerervice: (none)Author Type: PhysicianType: Progress NotesFiled: 05/14/2017 2:42 PMNote Text:CHIEF COMPLAINT:Soumya Abdi is a 57 year old White Not female who ishere for a consultation requested by Dr. Ramirez for an opinion regardingPatient presents with:New Patient: Bladder Mesh ProblemsThe patient is most bothered by the constant leaking from urethra andvagina.Issues:1. Urinary incontinence - bothered by frequency, voids 10 times perdayand 10 times at night. Not much urge UI though sometimes leaks withouturge (lying in bed). Leakage related to coughing and walking. Usingpads. Had sling placed in 2012 (?), helped initially. Now worse thanpre-op. Dr. Ramirez has concerns of mesh erosion.2. Vaginal bleeding related to Poise Impressa insertion. Also noted whenwiping.3. No bulge symptoms. Was told she has rectocele and does splint occasionally (on side of rectum).4. Medical co-morbidities, polypharmacy.HISTORY [...] obvious reason YesLeaks all the time YesDo youleak urine associated with a feeling of urgency? NoPrevious UI Treatment: noneVoiding Dysfunction: Feeling of incomplete emptying, Post-void dribblingDo you feel that you frequently have the urge to urinate? yes, # of voidsper hour/days 10 times during the day, how much fluid do you consume perday?Water 32-48 oz, Caffeine cups, Carbonation 8-12 ozNumber [...] number of padsper day 3-4Prolapse Symptoms:Do you usuallyhave a bulge or something falling out that you can see orfeel in the vaginal area: Yes, how much does it bother you: 3 Moderately I don't see it falling out the the vagina it's like in between therectum and the vagina Do you ever have to push on the vagina or around the rectum to have orcomplete abowel movement: Yes, how much does it bother [...] of gas?Rarely (1)-1 episode in the past [id number]. How often did thesesituations alter your lifestyle?Sometimes (2)During the past 4 weeks, did you:5. Need to wear a pad? No (0)6. Need to take constipating medicines? Yes (2)7. Lack the ability to defer defecation for 15 minutes? Yes (2)[place] Total Score: 8Sexual Activity: Not on fileAre you sexually active?: No other: No partnerGYN History:Last Pap: Date: 2015; Normal ; Last Mammogram: Her last mammogram [id number]. She has a previous history of an [...] YesLast Colonoscopy: Approximately 5 years agoColleen Menard, JOSÉM IGUELNovember 2016 11:51 [facility] H[facility]ORYDiagnosis Date- Anxiety and depression- CAD (coronary artery disease) CAD: mild disease. [facility] was 12/26/05: No intervention. stable- Cervical radiculopathy- Chronic pain- COPD (chronic obstructive pulmonary disease) ([facility] COPD- CVA (cerebral infarction) stoke- mini strokes- DDD (degenerative disc disease)- Depression depression- DJD (degenerative joint disease) degenerative joint disease- DM (diabetes mellitus) ([facility]) borderline diabetes- : on glucophage- HTN (hypertension) Hypertension- Hyperlipidemia hyperlipidemia- Lumbar radiculopathy- Migraine- Multiple sclerosis (HCC) Multiple sclerosis- Peripheral neuropathy (HCC)- Rheumatoid arthritis (HCC) rheumatoid arthritis- RLS (restless legs syndrome) restless leg syndrome- Sleep apnea sleep apnea- [place]- Urinary incontinencePAST SURGICAL HISTORYProcedure Laterality Date- ANTERIOR INTERBODY FUSION,CERVICAL 2007 at [facility]- BX OF BREAST; INCISIONAL 1998 right breast for cyst- PAST SURGICAL HISTORY OF01/2005 [facility] B[facility]- PAST SURGICAL HISTORY OF rectocele, vagicele [...] SYSTEMSGeneral: chills and weakness in legsSkin: Negative forrash or itching.Psychiatric: depressionNeurologic: Negative for new headache or syncope.Endocrine: + heat intoleranceCardiovascular: Negative for recent chest pain, chest pressure or chestdiscomfort.Hematologic/Lymphatic: Negative for easy bruising or excessive bleeding.Respiratory: COPD - has wheez ingGastrointestinal: abdominal pain, vomitingMusculoskeletal: muscle pain, back pain, [...] RRR without murmur, gallop, or rubs. No ectopyBreasts:DeferredAbdomen: Normal abdominal exam and Abdomen soft, non-tender. No masses,organomegalyPelvic: Ext. Genitalia: No lesions or other abnormalities Vagina: [place]twall - Normal support ; Post wall - Normal support Cervix / [place] - Normal support Prolapse Noted: No Cervix: AbsentUrethra: mesh erosion on distal urethra. Able to see and palpate meshedge. White areanoted, ?stoneBimanual: No tenderness, No massesShe does not have myofascial tenderness in her levator ani and obturatorinternus muscles.Saddle Sensory Exam (S-4): normalAnal [place]: NoBrink's Components AssessmentPressure c. Moderate squeeze, felt all the way around the finger surtface.Duration c. >1< 3 secondsDisplacement of vertical plane c. Whole length of fingers move anteriorlyDRESS Resting Score: (3) normalDRESS Rectal Squeeze Score: (3) normalSphincter Defect: noRectocele Present: yes, distalIMPRESSION:Soumya Abdi is a 57 year old female with Defecatory Dysfunction /Constipation,rectocele, vaginal atrophy, mesh exposure, urinaryincontinence.PLAN:1. Urinary incontinence in setting of previous sling with exposure. Opnote ordered. Will check cystoscopy. In mean time, start vagin alestrogen. Rx provided, precautions reviewed. Will address UI [...] record or letter via US mail.Elena Parks MDNormalCPremier Health Upper Valley [facility] Vital Signs Date TimeVital SignValuePerforming RjfcwysgfFzvgmqov04-85-7658 09:13-0400Body dyrtyl039.6 cmDarolando Wen MD Work Phone: [employer] LawnBgzjkioxau84-21-9040 09:13-0400Body mass index (BMI) [Ratio]33.89 kg/c3FxjhxnLudwin Wen MD Work Phone: [employer] LawnVherfhtlkx40-63-1490 09:13-0400Body ndnjna48.25 kgDarolando Wen MD Work Phone: [employer] LawnLicgdyqoyq96-64-4352 09:13-0400Diastolic blood qyuvqosj54 mm[Hg]Ludwin Wen MD Work Phone: [employer] LawnFlohnxpavx37-78-2035 09:13-0400Heart rate71 /min Ludwin Wen MD Work Phone: [employer] LawnUurhqehbjy47-85-6867 09:138158KhJ0% (BldA) [Mass fraction]95 %Ludwin Wen MD Work Phone: [employer] LawnBtfpcgzejs80-88-1645 09:13-0400Systolic blood gdgqtaqp854 mm[Hg]Ludwin Wen MD Work Phone: [facility] HospitalBnnzraokiy59-81-3670 15:25-0400Body sduzey939.6 cmLudwin Wen MD Work Phone: [facility] HospitalLipyppngfe07-54-6226 15:25-0400Body mass index (BMI) [Ratio]33.41 kg/u2KecxtxLudwni Wen MD Work Phone: [facility] HospitalBfpyeifeki80-48-4881 15:25-0400Body .89 kgLudwin Wen MD Work Phone: [facility] HospitalHygonkvees29-49-9883 15:25-0400Diastolic blood ploafxmc31 mm[Hg]Ludwin Wen MD Work Phone: [facility] HospitalNgwjevgeyx30-06-3762 15:25-0400Heart rate67 /min Ludwin Wen MD Work Phone: 1(169)[facility]-7779[facility] HospitalAyltpohzuf62-60-7025 15:25-0869JsU3% (BldA) [Mass fraction]94 %Ludwin Wen MD Work Phone: [facility] HospitalTthoyxyfur17-12-9858 15:25-0400Systolic blood dxjakfon722 mm[Hg]Ludwin Wen MD Work Phone: [facility] HospitalQdqivmvoac04-81-5899 14:55-0400Body .6 cmLudwin Wen MD Work Phone: [facility] HospitalKlkvrwubfs36-03-5305 14:55-0400Body mass index (BMI) [Ratio]32.12 kg/b6ZahutlLudwin Wen MD Work Phone: [facility] HospitalSrpwtxyowi65-31-0869 14:55-0400Body mxjyna99.27 kgLudwin Wen MD Work Phone: [facility] HospitalLflzcsibmi43-03-8987 14:55-0400Diastolic blood ddpbdxde53 mm[Hg]Ludwin Wen MD Work Phone: [facility] HospitalSzxcjhatak42-83-2018 14:55-0400Heart rate66 /min Ludwin eWn MD Work Phone: [facility] HospitalQbkjasxepx10-62-9661 14:55-1533TsR4% (BldA) [Mass fraction]95 %Ludwin Wen MD Work Phone: [facility] HospitalUlahcklciw86-56-9220 14:55-0400Systolic blood gqbdipvn915 mm[Hg]Ludwin Wen MD Work Phone: [facility] HospitalXskztvcvdq14-32-2610 10:57-0500Body wtxxii654.6 cmKaren Hemmer PA Work Phone: [facility] HospitalEbspnjezjo87-26-9186 10:57-0500Body mass index (BMI) [Ratio]29.41 kg/b1Jheav Hemmer PA Work Phone: [facility] HospitalMwptfwihfe49-50-0928 10:57-0500Body temperature 99.1 [degF]Isa Hemmer PA Work Phone: [facility] HospitalExkselpfgm46-04-7356 10:57-0500Body ajveyi99.64 kgKaren Hemmer PA Work Phone: [facility] HospitalFdszrwkfxv71-07-9841 10:57-0500Diastolic blood hduratkk39 mm[Hg]Isa Hemmer PA Work Phone: [facility] HospitalDgwortbzqz06-48-0717 10:57-0500Heart rate78 /min Isa Hemmer PA Work Phone: [facility] HospitalKcvcphxvvs45-17-1126 10:57-0500Respiratory rate16 /minIsacen Hemmer PA Work Phone: [facility] HospitalEogbbtcmfh45-66-9783 10:57-6656LvM0% (BldA) [Mass fraction]96 %Isa Hemmer PA Work Phone: [facility] HospitalKaqxfgtroq99-51-0345 10:57-0500Systolic blood yrgktspi411 mm[Hg]Isa Hemmer PA Work Phone: [facility] HospitalTafvfsovpr94-64-3666 10:34-0500Body mass index (BMI) [Ratio]29.96 kg/e8NljhiqMaria Metcalf TECHNICAL DELIVERY MANAGER Work Phone: [facility] HospitalJhwmhsnqkn15-08-9655 10:34-0500Body fxjaig12.19 kgMaria Metcalf TECHNICAL DELIVERY MANAGER Work Phone: [facility] HospitalYhwopvbgxy73-53-4809 10:34-0500Diastolic blood dxagqyrx29 mm[Hg]Maria Metcalf TECHNICAL DELIVERY MANAGER Work Phone: [facility] HospitalXctcuasigq91-48-9036 10:34-0500Heart rate64 /min Maria Metcalf TECHNICAL DELIVERY MANAGER Work Phone: [facility] HospitalXrkhjyqjrt57-34-6133 10:34-0500Respiratory rate17 /minSnell Metcalf TECHNICAL DELIVERY MANAGER Work Phone: [facility] HospitalLrigtlzxqb15-52-9204 10:34-7701QgA5% (BldA) [Mass fraction]94 %Maria Metcalf TECHNICAL DELIVERY MANAGER Work Phone: [facility] HospitalKzcttjegab72-42-8744 10:34-0500Systolic blood mm[Hg]Maria Metcalf TECHNICAL DELIVERY MANAGER Work Phone: [facility] HospitalZibpmnvbta70-73-2890 12:17-0500Body temperature 97.88 [degF]Scotty Huggins [address] [place], [place] 4587903-09-2024 12:17-0500 Diastolic blood fqdotgjs46 mm[Hg]Scotty Huggins [address] [place], [place] 4587903-09-2024 12:17-0500Heart kwnk625 /minScotty Joseluis [facility]03-09-2024 12:17-0500Mean blood tckfmuru866 mm[Hg]Scotty Huggins [facility]03-09-2024 12:17-0500 Respiratory rate15 /minJocarina Huggins [address] [place], [place] 4587903-09-2024 12:17-9063DtD8% (BldA) [Mass fraction]93 %Scotty Huggins [facility]03-09-2024 12:17-0500 Systolic blood nlgdopsc281 mm[Hg]Scotty Huggins [address] [place], [place] 4587903-09-2024 12:07-0500 Hourly RoundingScotty Joseluis [address] [place], [place] 4587903-09-2024 12:07-0500 Promise to ReturnJohn Joseluis [address] [place], [place] 4587903-09-2024 11:03-0500 Diastolic blood uusfrvbh832 mm[Hg]Scotty Huggins [address] [place], [place] 4587903-09-2024 11:03-0500Heart ginn403 /minScotty Joseluis [address] [place], [place] 4587903-09-2024 11:03-0500 Hourly RoundingJocarina Duttae [address] [place], [place] 4587903-09-2024 11:03-0500Mean blood nghamquj549 mm[Hg]Scotty Huggins [address] [place], [place] 4587903-09-2024 11:03-0500 Promise to ReturnJohn Joseluis [address] [place], [place] 4587903-09-2024 11:03-0500 Respiratory rate20 /minJuliethhn Joseluis [address] [place], [place] 4587903-09-2024 11:03-5616QrD4% (BldA) [Mass fraction]96 %Scotty Huggins [address] [place], [place] 4587903-09-2024 11:03-0500 Systolic blood ubfsixcw719 mm[Hg]Scotty Huggins [address] [place], [place] 4587903-09-2024 10:02-0500 Hourly RoundingScotty Duttae [address] [place], [place] 4587903-09-2024 10:02-0500 Promise to ReturnJohn Joseluis [address] [place], [place] 4587903-09-2024 10:00-0500Body ofzodmqrumm62.86 [degF]Scotty Joseluis [address] [place], [place] 4587903-09-2024 10:00-0500 Diastolic blood zrzpwzim613 mm[Hg]Scotty Huggins [address] [place], [place] 4587903-09-2024 10:00-0500Heart txif511 /minScotty Huggins [address] [place], [place] 4587903-09-2024 10:00-0500Mean blood cowyupwf965 mm[Hg]Scotty Huggins [address] [place], [place] 4587903-09-2024 10:00-0500 Respiratory rate18 /minScotty Huggins [address] [place], [place] 4587903-09-2024 10:00-0500 Systolic blood fxcbmcki421 mm[Hg]Scotty Huggins [address] [place], [place] 4587903-09-2024 04:00-0500Body kjtyvgkyyjc58.7 [degF]Scotty Huggins [address] [place], [place] 4587903-08-2024 14:59-0500 Respiratory rate24 /minScotty Huggins [address] [place], [place] 4587903-08-2024 14:34-0500 Respiratory rate28 /minScotty Huggins [address] [place], [place] 4587903-08-2024 14:00-0500gluc 250 mg/dLJocarina Huggins [address] [place], [place] 4587903-08-2024 14:00-0500gluc Scotty Huggins [address] [place], [place] 4587903-08-2024 13:57-0500Heart rate86 /minScotty Huggins [address] [place], [place]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 Zahraa Godfrey NP - 09/24/2024 3:46 PM EDT No call back received from pt - forwarding as FYI [facility] Work Phone: [phone] Miscellaneous Notes* Telephone Encounter - Zahraa Godfrey NP - 09/24/2024 3:46 PM EDT No call back received from pt - forwarding as FYI * Telephone Encounter - Zahraa Godfrey NP - 08/28/2024 11:46 AM EST Report received from [facility] re: statin and ANA/ARB medication adherence for Atorvastatin and Lisinopril in 2023. These medications appear to be managed by cardiology. Review of chart shows atorvastatin was discontinued 10/2023 due to elevated liver enzymes. Unclear if pt is receiving Lisinopril and if she is experiencing any difficulty with refills. Pt was hospitalized 09/08/2023 through 09/13/2023. Call placed to pt re: the above, VM received, msg left with call back info. documented in this encounterMercy McCune-Brooks [id number] History of Present illness Narrative* RIZWANA Rascon - 09/01/2024 11:00 AM EST Images from the original note were not included. HPI Back Pain Additional comments: She had been on MS Contin and it has been on backorder for months so Dr. Wenswitched her to Fentanyl patch and she does not feel it really helps her pain so would like to discuss some other pain med. She really does not like having the Fentanyl patches in her house so she isto the point where she wants something else or nothing at all. Last edited by Heather Vasquez LPN on 09/01/2024 10:57 AM. Subjective Patient ID: Soumya Abdi is a 64 y.o. female who presents for sinus infection. Soumya is present today for evaluation of sinus issues. Admits sinus pressure/pain, nasal congestion, runny nose, right ear pain, post nasal drainage, sore throat, cough (dry), SOB, wheezing, fatigue,body aches, chills. Started Sunday and she did take a Benadryl 1 time and that did help some. Has been using her TENS unit, heat, ice. Has been off of the Fentanyl for a week, has not had a patch on since Sunday or Sunday of last week. Worst times for her are first thing in the morning and at night. Has trouble sleeping. Current Outpatient Medications on File Prior to Visit Medication Sig Dispense Refill albuterol HFA (ProAir HFA) 90 mcg/act inhaler Inhale 2 puffs every 4 (four) hours if needed. aspirin 81 MG EC tablet Take 81 mg by mouth in the morning. atorvastatin (Lipitor) 40 MG tablet Take 40 mg by mouth at bedtime. carvedilol (Coreg) 6.25 MG tablet TAKE 1 TABLET WITH FOOD ORALLY TWICE A DAY 100 DAYS 200 tablet 3 cholecalciferol (Vitamin D-3) 25 MCG (1000 UT) capsule Take 1 capsule (25 mcg) by mouth Daily 100 capsule 3 [facility] Stool Softener 100 MG capsule TAKE 1 CAPSULE (100 MG) BY MOUTH IN THE MORNING 100 capsule 3 FLUoxetine (PROzac) 40 MG capsule TAKE 1 CAPSULE BY MOUTH IN THE MORNING 100 capsule 3 fluticasone (Flonase) 50 MCG/ACT nasal spray Administer 2 sprays into each nostril in the morning. furosemide (Lasix) 20 MG tablet Take 1 tablet (20 mg) by mouth Daily 90 tablet 3 glucose blood ([employer] Ultra) test strip 1 each by Other route in the morning and 1 each before bedtime. lactulose (Chronulac) 10 GM/15ML solution Take 10 g by mouth in the morning and 10 g at noon and 10g in the evening. leflunomide (Arava) 20 MG tablet Take 20 mg by mouth in the morning. lisinopril 20 MG tablet Take 20 mg by mouth Daily modafinil (Provigil) 200 MG tablet TAKE 1 TABLET BY MOUTH EVERY DAY 30 tablet 0 pantoprazole (ProtoNix) 40 MG EC tablet Take 40 mg by mouth in the morning and 40 mg in the evening. Take before meals. potassium chloride ER (Micro-K) 10 MEQ ER capsule Take 1 capsule (10 mEq) by mouth Daily 90 capsule3 riTUXimab (RITUXAN IV) every 6 (six) months. WITH RHEUMATOLOGY senna-docusate (Lidia-Colace) 8.6-50 MG tablet Take 1 tablet by mouth 2 (two) times a day as needed for constipation. SITagliptin (Januvia) 100 MG tablet Take 100 mg by mouth in the morning. [DISCONTINUED] fentaNYL (DURAGESIC) 12 MCG/HR Place 1 patch over 72 hours on the skin every 3rd (third) day 10 patch 0 No current facility-administered medications on file [...] date: 1971 Quit date: 2014 Years since quittin.1 Smokeless [...] pain 08/20/2017 COPD (chronic obstructive pulmonary disease) ([facility]) Coronary artery disease (CAD) excluded COVID-19 04/2020 DDD (degenerative disc disease), lumbar Depression ([facility]) Diabetes ([facility]) Diabetes mellitus type 2, controlled ([facility]) Diabetic foot ulcer ([facility]) TB[facility] Right diabetic foot ulcer, Sepsis 12/29/2021-12/30/2021 Elevated troponin 03/22/2021 /V/D, Elevated Troponin, Lactic Acidosis Fractures, multiple H/o Rt Wrist, Rt Foot, Clavicle, Finger, & Toe Fractures GERD (gastroesophageal reflux disease) History of migraine headaches Hypertension ([facility]) Leukocytosis 2010 Lung nodules 12/2010 CARRASCO (nonalcoholic steatohepatitis) Nephrolithiasis Non-pressure chronic ulcer of other part of right foot with necrosis of muscle ([facility]) 11/07/2022 NSTEMI (non-ST elevated myocardial infarction) ([facility]) NSTEMI, N/V/D 09/29/2022-10/09/2022 Recurrent vertigo 04/13/2020 Recurrent Vertigo, N/V, Covid 19 Rheumatoid arthritis (CMS/HCC) Type 2 diabetes mellitus with foot ulcer (CMS/HCC) 11/07/2022 Ulcer of foot due to type 2 diabetes mellitus (CMS/HCC) 03/05/2019 Vitamin D deficiency Past Surgical History: Procedure Laterality Date ANGIOPLASTY BACK SURGERY 2007 BLADDER SUSPENSION 2014 Bladder sling BONE MARROW BIOPSY COLONOSCOPY 2012 CYST REMOVAL 2016 DEBRIDEMENT 12/29/2021 Ulcer Debridement Rt Foot DILATION AND CURETTAGE 1981 EXCISION 2004 Excision of Elbow Mass FOOT SURGERY 10/12/2008 FOOT SURGERY Right 07/15/2019 Dr. Cervantes [place] LIGATE FALLOPIAN TUBE 1981 Bilateral tubal ligation TONSILLECTOMY 1963 TOTAL VAGINAL HYSTERECTOMY 2006 US LIVER BIOPSY 2011 CT Guided Liver Biopsy Visit Vitals BP 126/80 Pulse 78 Temp 99.1 F Resp 16 Ht 5' 6 Wt 182 lb 3.2 oz SpO2 96% BMI 29.41 kg/m Smoking Status Former BSA 1.96 m Review of Systems Constitutional: Positive for chills and fatigue. Negative for fever. HENT: Positive for congestion, ear pain, postnasal drip, rhinorrhea, sinus pressure, sinus pain andsore throat. Respiratory: Positive for cough, shortness of breath and wheezing. Cardiovascular: Negative for chest pain, palpitations and leg swelling. Gastrointestinal: Negative for abdominal pain, constipation, diarrhea, nausea and vomiting. Musculoskeletal: Positive for arthralgias, back pain and myalgias. Objective Physical Exam Constitutional: General: She is not in acute distress. Appearance: Normal appearance. She is well-developed. HENT: Head: Normocephalic and atraumatic. Right Ear: Ear canal normal. A middle ear effusion is present. Left Ear: Tympanic membrane and ear canal normal. Nose: Congestion present. Comments: Ethmoid sinuses painful. Turbinate erythematous Mouth/Throat: Mouth: Mucous membranes are moist. Pharynx: Posterior oropharyngeal erythema (Mild) and postnasal drip present. Eyes: General: No scleral icterus. Conjunctiva/sclera: Conjunctivae normal. Cardiovascular: Rate and Rhythm: Normal rate. Rhythm irregularly irregular. Heart sounds: Normal heart sounds. No murmur heard. Pulmonary: Effort: Pulmonary effort is normal. No respiratory distress. Breath sounds: Examination of the left-lower field reveals wheezing. Decreased breath sounds and wheezing (Inspiratory) present. No rhonchi or rales. Lymphadenopathy: Cervical: No cervical adenopathy. Skin: General: Skin is warm and dry. Neurological: General: No focal deficit present. Mental Status: She is alert and oriented to person, place, and time. Psychiatric: Mood and Affect: Mood normal. Behavior: Behavior normal. Assessment/Plan Diagnoses and all orders for this visit: Type 2 diabetes mellitus with other specified complication, without long-term current use of insulin ([facility]) - Microalbumin / creatinine, urine ratio; Future - Comprehensive metabolic panel; Future - Hemoglobin A1c Labs ordered today for patient. Will notify her of the results once received. Continue Januvia as prescribed. Screening for malignant neoplasm of colon - Cologuard colon cancer screening; Future Provided patient with order to complete Cologuard testing as a screening for colon cancer. If results are negative, will plan to recheck a Cologuard in 3 years. If results are positive, would need toprovide patient with referral for a screening Colonoscopy for further evaluation. Essential (primary) hypertension ([facility]) Patient's blood pressure is currently well controlled. Continue with current medications and I willcontinue to monitor. Goal BP remains less than 130/80. Acute non-recurrent ethmoidal sinusitis - amoxicillin-clavulanate (Augmentin) 875-125 MG tablet; Take 1 tablet (875 mg) by mouth in the morning and 1 tablet (875 mg) in the evening. Take with meals. Do all this for 7 days. - fluconazole (Diflucan) 150 MG tablet; Take 1 tablet (150 mg) by mouth Daily for 1 day, THEN 1 tablet (150 mg) Daily for 1 day. Take doses 3 days apart. Start the above as directed. Reviewed potential s/e with patient. Encouraged probiotic while on antibiotic. Increase water intake, get plenty of rest. Can continue to take OTC allergy medication for symptomatic relief. Follow up if no improvement in one week. Rheumatoid arthritis involving multiple sites with positive rheumatoid factor ([facility]) - oxyCODONE (Roxicodone) 10 MG immediate release tablet; Take 1 tablet (10 mg) by mouth every 12 (twelve) hours if needed for severe pain for up to 5 days Patient is uncomfortable with the Fentanyl and did not feel it was very efficacious for her pain. She would like a pain medication that is not as strong. States in the future she would prefer not to take any pain medication. She does not wish to restart MS Contin. She is agreeable to trying Oxycodone twice daily as needed. Sciatica of right side Discussed risks of this class of medication including the potential for abuse, reliance. Discussed importance of properly storing and disposing of the medication. Reviewed the goals of treatment, including improving pain control and improving functional status. Medication choice and dosage is appropriate for patient's current medical conditions. Reviewed the rules and regulations surrounding prescription of opioids and compliance at length with the patient. Patient will be required to be seen in our office at least every three months for monitoring. At each follow up visit I will reassess thepatient's need for the medication. Patient is to have this medication prescribed only through this office. Failure to follow the rules and regulations will result in tapering and discontinuation of medications if applicable. Patient verbalized understanding. OARRS Report was reviewed for this patient. Other chronic pain See above. Mixed hyperlipidemia (CMS/HCC) This is a chronic medical condition that is stable since last assessment. No changes in treatment are suggested at this time. Will continue to monitor with routine labs. Heart failure with reduced ejection fraction (CMS/HCC) The patient is seeing a chief medical director for this condition, treatment is deferred to that specialist. Correspondence from that specialist and any available testing were reviewed during today's visit. Multiple sclerosis (CMS/HCC) This is a chronic medical condition that is stable since last assessment. No changes in treatment are suggested at this time. Unspecified cirrhosis of liver (CMS/HCC) Will continue to monitor liver function with routine labs. Will avoid Tylenol in pain medication. Chronic systolic (congestive) heart failure (CMS/HCC) The patient is seeing a chief medical director for this condition, treatment is deferred to that specialist. Correspondence from that specialist and any available testing were reviewed during today's visit. Type 2 diabetes mellitus with hyperglycemia (CMS/HCC) See above. Major depressive disorder, single episode, moderate (HCC) (CMS/HCC) This is a chronic medical condition that is stable since last assessment. No changes in treatment are suggested at this time. Interstitial pulmonary disease, unspecified (CMS/HCC) This is a chronic medical condition that is stable since last assessment. No changes in treatment are suggested at this time. Type 2 diabetes mellitus with diabetic peripheral angiopathy without gangrene (CMS/HCC) See above. Simple chronic bronchitis (CMS/HCC) This is a chronic medical condition that is stable since last assessment. No changes in treatment are suggested at this time. Chronic obstructive pulmonary disease, unspecified (CMS/HCC) This is a chronic medical condition that is stable since last assessment. No changes in treatment are suggested at this time. Type 2 diabetes mellitus with diabetic polyneuropathy (CMS/HCC) See above. Panlobular emphysema (CMS/HCC) This is a chronic medical condition that is stable since last assessment. No changes in treatment are suggested at this time. Follow up in about 3 months (around 12/02/2024) for Medication Follow Up. documented in this encounterMercy McCune-Brooks [id number] Telephone encounter Note* Telephone Encounter - Zahraa Godfrey NP - 08/28/2024 11:46 AM EST Report received from [facility] re: statin and ANA/ARB medication adherence for Atorvastatin and Lisinopril in 2023. These medications appear to be managed by cardiology. Review of chart shows atorvastatin was discontinued 10/2023 due to elevated liver enzymes. Unclear if pt is receiving Lisinopril and if she is experiencing any difficulty with refills. Pt was hospitalized 09/08/2023 through 09/13/2023. Call placed to pt re: the above, VM received, msg left with call back info. [facility] [id number] Telephone encounter Note* Telephone Encounter - RIZWANA Rascon - 07/29/2024 12:59 PM EST OARRS reviewed, Rx sent into patient's pharmacy. [facility] [id number] Miscellaneous Notes* Telephone Encounter - RIZWANA Rascon - 07/29/2024 12:59 PM EST OARRS reviewed, Rx sent into patient's pharmacy. * Telephone Encounter - Yessica Paris - 07/29/2024 11:08 AM EST fentaNYL (DURAGESIC) 12 MCG[facility] documented in this encounterMercy McCune-Brooks [id number] Telephone encounter Note* Telephone Encounter - Yessica Paris - 07/29/2024 11:08 AM EST fentaNYL (DURAGESIC) 12 MCG[facility] RoadHdxgfyvqpc00-20-5294 Telephone encounter Note* Telephone Encounter - Edna Whitmore LPN - 06/27/2024 12:33 PM EST Pt agrees to trying the patch[facility] [id number] Miscellaneous Notes* Telephone Encounter - Edna Whitmore LPN - 06/27/2024 12:33 PM EST Pt agrees to [facility] the [facility] * Telephone Encounter - Ludwin Wen MD - 06/27/2024 12:20 PM EST Fentanyl patch seems to be the only alternative that insurance will cover. Does she want to switch? * Telephone Encounter - Yessica Paris - 06/26/2024 3:17 PM EST Pt states that none of the pharmacies in the area are able to get the morphine CR (MS Contin) 15 MG 12 hr tablet. She'd like to know what other options she has for her pain. She doesn't want to go up to the 30mg if possible. She only has 1.5 days left documented in this encounterMercy McCune-Brooks [id number] Telephone encounter Note* Telephone Encounter - Ludwin Wen MD - 06/27/2024 12:20 PM EST Fentanyl patch seems to be the only alternative that insurance will cover. Does she want to switch? [facility] [id number] Telephone encounter Note* Telephone Encounter - Yessica Paris - 06/26/2024 3:17 PM EST Pt states that none of the pharmacies in the area are able to get the morphine CR (MS Contin) 15 MG 12 hr tablet. She'd like to know what other options she has for her pain. She doesn't want to go up to the 30mg if possible. She only has 1.5 days left [facility] [id number] Telephone encounter Note* Telephone Encounter - Yessica Paris - 06/26/2024 1:48 PM EST morphine CR (MS Contin) 15 MG 12 hr tablet to [facility] [id number] Miscellaneous Notes* Telephone Encounter - Yessica Paris - 06/26/2024 1:48 PM EST morphine CR (MS Contin) 15 MG 12 hr tablet to [facility] documented in this encounterMercy McCune-Brooks HospitalSwavsjbzfc21-43-3114 Telephone encounter Note* Telephone Encounter - RIZWANA Rascon - 05/28/2024 4:21 PM EST OARRS reviewed, Rx sent into patient's pharmacy. [facility] HospitalRjrfwzbxfe72-64-4535 Miscellaneous Notes* Telephone Encounter - RIZWANA Rascon - 05/28/2024 4:21 PM EST OARRS reviewed, Rx sent into patient's pharmacy. * Telephone Encounter - Yessica Paris - 05/28/2024 3:28 PM EST morphine CR (MS Contin) 15 MG [facility] hr [facility] documented in this encounterMercy McCune-Brooks [id number] Telephone encounter Note* Telephone Encounter - Yessica Paris - 05/28/2024 3:28 PM EST morphine CR (MS Contin) 15 MG 12 hr [facility] HospitalXcnuhupcil16-05-0715 History of Present illness Narrative* Maria Metcalf NP - 05/13/2024 10:30 AM EST Images from the original note were not [...] All needed testing was ordered. Will continue withyearly Medicare Wellness exams. Carpal tunnel syndrome, unspecified [...] due to type 2 diabetes mellitus (CMS/HCC) This is a chronic medical condition that is stable since last assessment. No changes in treatment are suggested at this time. Multiple sclerosis (CMS/HCC) This is a chronic medical condition [...] suggested at this time. Simple chronic bronchitis ([facility]/HCC) Lung nodule, multiple - CT lung screening low dose; Future Has seen by Dr. Berg in the past. Low dose CT ordered Await CT Acute coronary syndrome ([facility]/HCC) Managed by cardiology in [place] Atherosclerosis of [place] coronary artery of [place] heart without angina pectoris ([facility] Managed by cardiology in [place] Cardiogenic shock ([facility]) Managed by cardiology in [place] Essential (primary) hypertension ([facility]) Managed by cardiology in [place] Heart failure with reduced ejection fraction [place] - furosemide (Lasix) 20 MG tablet; Take 1 tablet (20 mg) by mouth Daily Managed by cardiology in [place] NSTEMI (non-ST elevated myocardial infarction) ([facility]) Managed by cardiology in [place] Peripheral vascular disorder due to diabetes mellitus ([facility]) This is a chronic medical condition that [...] yellow or clear like water. At least 1/2body weight in water each day. Include high-fiber foods in your diet each day. These include fruits, vegetables, beans, and whole grains. Get at least 30 minutes of exercise on most days of the week.Take a fiber supplement, such as Citrucel or Metamucil, every day. Probiotics recommended also. Schedule time each day for a bowel movement. A daily routine may help. Take your time having your bowelmovement. Fatty liver Followed by GI MISA (stress [...] Discussed minimizing high carb, high sugar, high sodium,portion control, and processed foods while making healthy choice replacements. Additionally discussed recommendations of 30 minutes of aerobic exercise at least 5 days per week, that includes, walking, and chair exercises. . Instructed importance of drinking adequate water consumption (if not on fluid restriction) with minimal sugar and caffiene. Other primary ovarian failure Await dexa Poorly controlled diabetes mellitus ([facility]) We discussed today, the importance of proper [...] control with the patient. If the patient stillhas questions on this, a referral to a Dietitian can be arranged. I reviewed medications that aid in diabetic control. We discussed proper dosing and educated the patient on possible side effects andcomplications. The patient verbalized understanding of these instructions. [...] suggested at this time. documented in this encounterMercy McCune-Brooks [id number] Note Attestation signed by Howard Kolb MD at 04/30/2024 9:23 PM Seen and discussed with fellow, agree with assessment and plan. [facility] Gastroenterology New Patient Visit - History & Physical CHIEF COMPLAINT Chief Complaint Patient presents with Follow-up HISTORY OF PRESENT ILLNESS: Soumya Abdi is a 64 y.o. female with PMHX of HTN, HLD, DM, CAD, MS (previously on methotrexate), who presents for hospital follow up. Patient initially admitted to [facility] in August 2023 for RUQ abdominal pain. [...] supplemental oxygen. Consequently, she was transferred to [facility] for ERCP with stenting. At that time, [...] Take 20 mg (more content not included)... [facility]10-30-2024 NoteGet blood work and ultrasound scheduled Please schedule an EGD for evaluation of your esophagus, call [phone]. Refills for Pantoprazole were sent to your pharmacy. We will start Lactulose for your confusion and fogginess. Take 1-3 times daily, target 2-3 soft bowel movements (not diarrhea) a day Follow up in 6 months.[facility]10-28-2024 Telephone encounter Note* Telephone Encounter - Yessica Paris - 2024 9:58 AM EDT morphine CR (MS Contin) 15 MG 12 hr tablet to [facility] [id number] Miscellaneous Notes* Telephone Encounter - Yessica Paris - 2024 9:58 AM EDT morphine CR (MS Contin) 15 MG 12 hr tablet to [facility] documented in this encounterMercy McCune-Brooks HospitalQlalbvvwmj09-48-3490 Telephone encounter Note* Telephone Encounter - Damaris Taylor - 03/31/2024 1:35 PM EDT morphine CR (MS Contin) 15 MG 12 [facility] tablet [facility] HospitalHbwjfwkwii36-54-8276 Miscellaneous Notes* Telephone Encounter - Damaris Taylor - 03/31/2024 1:35 PM EDT morphine CR (MS Contin) 15 MG 12 hr tablet [facility] documented in this [facility]08-30-2024 Telephone encounter Note* Telephone Encounter - RIZWANA Rascon - 02/29/2024 9:03 AM EDT OARRS reviewed, Rx sent into patient's pharmacy. [facility] [id number] Miscellaneous Notes* Telephone Encounter - RIZWANA Rascon - 02/29/2024 9:03 AM EDT OARRS reviewed, Rx sent into patient's pharmacy. documented in this [facility]08-29-2024 Telephone encounter Note* Telephone Encounter - Damaris Taylor - 02/28/2024 10:57 AM EDT morphine CR (MS Contin) 15 MG 12 hr tablet [facility] HospitalLmhrzecrjr33-45-6726 Miscellaneous Notes* Telephone Encounter - Damaris Taylor - 02/28/2024 10:57 AM EDT morphine CR (MS Contin) 15 MG 12 hr tablet [facility] documented in this [place] [id number] Note Attestation signed by Howard Kolb MD at 10/24/2023 3:41 PM Seen and discussed with resident, agree with assessment and plan. [facility] Gastroenterology New Patient Visit - History & Physical CHIEF COMPLAINT Chief Complaint Patient presents with Hospital Follow-up HISTORY OF PRESENT ILLNESS: Soumya Abdi is a 63 y.o. female patient with liver cirrhosis, hypertension, hyperlipidemia, diabetes mellitus, coronary artery disease, and multiple sclerosis. She presents today for follow up after hospital discharge. She was hospitalized at [facility] 09/08/23-09/13/23. Her initial presentation was with vomiting, [...] Disp: , Rfl: fluticasone (more content not included)...[facility] 09-08-2023 NotePatient updated on plan of care, states her pain is controlled aware she will be transported via ambulance to [facility] - verbalizes understanding.[facility]03-08-2024 Evaluation + Plan note Extracted from:Title:ED NoteAuthor:Stepan BUCK, JansenDate:09/07/23 1. Elevated troponin (R79.89 : Other specified [...] Troponin 9 Hr. UA With Cult Reflex [facility]02-14-2024 History of Present illness Narrative* Ludwin [...] capsule 3 ergocalciferol (Vitamin D-2) 1.25 MG (52137 UT) capsule Take by mouth 1 (one) time per week. FLUoxetine (PROzac) 40 MG capsule Take 1 capsule (40 mg) by mouth in the morning. 30 capsule 5 fluticasone (Flonase) 50 MCG/ACT nasal spray Administer 2 sprays into each nostril in the morning. furosemide (Lasix) 20 MG tablet Take 20 mg by mouth in the morning. glucose blood (EventKlouduch Ultra) test strip 1 each by Other [...] pain 08/20/2017 COPD (chronic obstructive pulmonary disease) ([facility]) Coronary artery disease (CAD) excluded COVID-19 04/2020 DDD (degenerative disc disease), lumbar Depression ([facility]) Diabetes ([facility]) Diabetes mellitus type 2, controlled ([facility]) Diabetic foot ulcer ([facility]) TBH Right diabetic foot ulcer, Sepsis 12/29/2021-12/30/2021 Elevated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
--- NOTE | 2025-04-22 08:33 | XR_ITS ---
The [address] [address] Patient Name: ALEX ABDI MRN: [id number] date: 1960 Sex: F Assigned Patient Location: LAB Current Patient Location: LAB Accession/Order Number: [id number] Exam Date: 04/22/2025 08:37 Report Date: 04/22/2025 10:19 At the request of: REGLA LOVE NP Procedure: XR chest 2V PA AND LATERAL CHEST: CLINICAL HISTORY: Immunosuppression, Rheumatoid Arthritis COMPARISON: 01/21/[address] 08/01/2024 Mediastinal wires are visualized. There is mild hyperinflation. Minimal scarring or atelectasis is again noted. There is developing parenchymal consolidation, effusion or pneumothorax. The cardiac, hilar and mediastinal silhouettes are within normal limits. There is no vascular congestion. The visualized bony thorax is intact. Dextroscoliotic curvature and tiny endplate spurs are present. There is lower cervical fusion. XR/XR chest 2V IMPRESSION: OBSTRUCTIVE LUNG DISEASE AND MINOR CHRONIC CHANGES. NO ACUTE CARDIOPULMONARY ABNORMALITY. Impression dictated by: Isa Kuo M.D. 04/22/2025 10:19 AM Dictation Location: [place] [address] Electronically authenticated by: [id number] Date: 04/22/2025 10:19
== END 2025-04-22 08:09 | disposition home or self-care (01) ==
LOC: LAB 08:11
PROVIDERS: PCP Internal Medicine; Visit Provider Nurse Practitioner Family
DX: R79.9 Abnormal finding of blood chemistry, unspecified (principal); Z79.899 Other long term (current) drug therapy; M05.79 Rheumatoid arthritis with rheumatoid factor of multiple sites without organ or systems involvement; J44.9 Chronic obstructive pulmonary disease, unspecified
CPT/HCPCS: 36415; 71046; 86704; 86706; 86803; 87340